=== PATIENT | male | born 1940 | race Caucasian/White ===

== ENCOUNTER 2020-10-14 20:09 | Inpatient (IN) | payer MEDICARE, SELFPAY ==
--- NOTE | ~2020-10-14 | CT_ITS ---
EXAMINATION: CT abdomen pelvis wo con DATE: 10/14/2020 23:31 INDICATION: Hypotension, lactic acidosis and leukocytosis. TECHNIQUE: Computed tomography (CT) of the abdomen and pelvis was performed without intravenous contr ast. Automated exposure control and iterative reconstruction technique were employed. The dose-length product was 560.22 mGy-cm. COMPARISON: 08/03/2016 FINDINGS: Mild dependent atelectasis in the bilateral lower lobes. Heart size is normal. Atherosclerotic page ry artery calcification. Mitral annular calcific lesion. No pericardial or pleural effusion. Again se en are 5 small low-attenuation hepatic lesions the largest measuring 1.4 cm most likely hepatic cysts or hemangiomas. Gallbladder, spleen, pancreas and bilateral adrenal glands are normal. Moderate bila teral perinephric stranding. Mild bilateral hydroureter without hydronephrosis or evident obstructing ureteral stones. Bladder is normal. Prostatomegaly. There is mild colonic diverticulosis with a sigm oid predominance. There is no adjacent inflammatory change to suggest diverticulitis. Mild diffuse co lonic wall thickening consistent with colitis. 5 cm ball of stool at the rectum. Small bowel and appe ndix are normal. No free intraperitoneal gas or fluid. No pathologically enlarged abdominal or pelvic lymphadenopathy. Mild to moderate thoracolumbar spondylosis with bridging osteophytes at multiple levels consistent w ith diffuse idiopathic skeletal hyperostosis (DISH). L5 spondylolysis with bilateral pars intra-bailee cular is defects and 10 mm anterolisthesis on S1. IMPRESSION: 1. Diffuse mild wall thickening throughout the colon consistent with colitis which could be infectiou s, inflammatory or ischemic in etiology. 2. Moderate bilateral perinephric stranding and mild bilateral hydroureter without evident obstructin g stones or masses but which could be related to outlet obstruction from the enlarged prostate. Corre late with urinalysis. Reviewed, dictated and finalized at location A. IMPRESSION: 1. Diffuse mild wall thickening throughout the colon consistent with colitis wh ich could be infectious, inflammatory or ischemic in etiology. 2. Moderate bilateral perinephric stranding and mild bilateral hydroureter with out evident obstructing stones or masses but which could be related to outlet o bstruction from the enlarged prostate. Correlate with urinalysis.
--- NOTE | ~2020-10-14 | XR_ITS ---
EXAMINATION: XR chest 1V portable DATE: 10/14/2020 21:01 INDICATION: Weakness. Gait difficulty. TECHNIQUE: frontal view of the chest was obtained. COMPARISON: None FINDINGS: Lungs are clear with no focal airspace opacities, pulmonary edema, pleural effusion or pneumothorax. The cardiomediastinal silhouette is within normal limits accounting for slight rightward rotation of the patient. Calcified right hilar and mediastinal lymph nodes consistent with old granulomatous dise ase. IMPRESSION: 1. No acute cardiopulmonary disease. Reviewed, dictated and finalized at location A.
--- NOTE | ~2020-10-14 | US_ITS ---
EXAMINATION: US renal BI DATE: 10/16/2020 15:29 INDICATION: Bilateral hydronephrosis TECHNIQUE: Multiple ultrasound grayscale images of the kidneys were obtained. COMPARISON: CT dated 10/14/2020 FINDINGS: The right kidney measures 9.6 x 4.8 x 6.0 cm. The left kidney measures 11.0 x 5.5 x 5.1 cm. The kidne ys demonstrate normal echogenicity. There is no hydronephrosis in either kidney. No stones identifie d. The bladder is decompressed around a Escalante catheter which limits evaluation.. IMPRESSION: 1. Normal kidneys without hydronephrosis. Reviewed, dictated and finalized at location A.
--- NOTE | ~2020-10-14 | CT_ITS ---
EXAMINATION: CT brain wo con DATE: 10/14/2020 21:09 INDICATION: Generalized weakness. Gait difficulty. TECHNIQUE: Computed tomography (CT) of the head was performed without intravenous contrast. Sagittal and coronal reconstructions were performed. The mA was adjusted according to patient size. Iterative reconstruction technique was employed. The dose-length product was 605.33 mGy-cm. COMPARISON: Brain MR dated 02/23/2012 FINDINGS: No acute intracranial hemorrhage, acute infarction or abnormal extra axial fluid collection. There is mild scattered white matter hypoattenuation consistent with chronic small vessel ischemic disease. S ymmetric prominence of the sulci consistent with mild age-appropriate diffuse cerebral volume loss. Ventricles are normal and symmetric. No mass/mass effect. The orbits, paranasal sinuses and mastoid a ir cells are normal. IMPRESSION: 1. No acute intracranial process. 2. Age-related changes including mild diffuse volume loss and mild scattered white matter hypoattenua tion consistent with chronic small vessel ischemic disease. Reviewed, dictated and finalized at location A. IMPRESSION: 1. No acute intracranial process. 2. Age-related changes including mild diffuse volume loss and mild scattered wh ite matter hypoattenuation consistent with chronic small vessel ischemic diseas e.
[2020-10-14 20:09] VITALS: BP 89/57; PULSE 72; RESP 21; TEMP 36.4; O2SAT 97
--- NOTE | 2020-10-14 20:50 | ECG_ITS ---
Measurements Intervals [place] Rate: 70 P: 60 NV: 187 QRS: 3 QRSD: 90 T: 34 QT: 382 QTc: 413 Interpretive Statements SINUS RHYTHM EARLY PRECORDIAL R/S TRANSITION BORDERLINE ECG Electronically Signed On 10-15-2020 5:44:24 CDT by Thomas Day D.O.
[2020-10-14] MEDS: SODIUM CHLORIDE 0.9% IV 1,000 ML 999 ML IV CONT ×3 (20:58→22:34)
--- NOTE | 2020-10-14 21:10 | ED.WEAKNESS ---
HPI - Weakness General Chief complaint: Weakness Stated complaint: weakness Time Seen by Provider: 10/14/20 20:40 Source: patient, RN notes reviewed and old records reviewed Mode of arrival: EMS Limitations: no limitations History of Present Illness HPI Narrative: This is an 80 year old male who presents for evaluation of generalized weakness. Patient reports he developed weakness this afternoon. He reports he was unable to get up due to his weakness. EMS reports patient was seen earlier for a lift assist. Patient states he accidentally fell backwards onto his at that time but he did not hit his head. He reports he has not eaten anything today and he is weak. He denies any other complaints. He denies headache, chest pain, shortness of breath, cough, nausea, vomiting, abdominal pain or fever. He denies similar history in the past. Related Data Home Medications Medication Instructions Recorded Confirmed aspirin 81 mg tablet,delayed 81 mg PO DAILY 04/19/19 10/08/19 release ropinirole 1 mg tablet 1 mg PO .COMPLEX 04/19/19 10/08/19 Allergies Allergy/AdvReac Type Severity Reaction Status Date / Time No Known Allergies Allergy Verified 10/14/20 20:24 Review of Systems Review of Systems: All systems reviewed & are unremarkable except as noted in HPI and below Constitutional: Constitutional: Denies chills, Denies fever(s) and Reports weakness ENT: Denies sore throat Cardiovascular: Cardiovascular: Denies chest pain Respiratory: Respiratory: Denies cough and Denies dyspnea Gastrointestinal: Gastrointestinal: Denies abdominal pain, Denies diarrhea, Denies nausea and Denies vomiting Genitourinary: Genitourinary: Denies hematuria and Denies dysuria Musculoskeletal: Musculoskeletal: Denies back pain Neurologic: Denies headache(s), Denies focal weakness and Denies numbness [facility] Past Medical History Medical History (Updated 10/15/20 @ 07:46 by Magi Dominguez MD) Hyperlipidemia Hypertension Parkinsons disease Family History Family History Father Diabetes mellitus Family history of elevated blood lipids Family history of cardiovascular disease Mother Family history of malignant neoplasm of breast in first degree relative Other Hypertension Social History Social History Alcohol intake: current Exam Const: General: no acute distress Orientation/consciousness: patient oriented x3 Other: lethargic HENMT: Head: normocephalic and atraumatic Face and sinus: dry mucous membranes Mouth: Yes lip normal Eyes: EOM: EOMs intact bilaterally Resp: Effort & Inspection: normal respiratory effort and no retractions Auscultation: clear to auscultation bilaterally Cardio: Rate: regular rate Rhythm: regular rhythm Heart sounds: no murmurs GI: GI Palp: Yes Soft to palpation, No Tenderness to palpation present (GI) and No Guarding due to palpation present (GI) Auscultation: normal bowel sounds Skin: General skin exam: normal color Rashes: no rashes Neuro: General: patient oriented x3 and moves all extremities Psych: Mental Status: mental status grossly normal Affect: normal affect Course Reevaluation(s) Reevaluation #1: I Discussed case with DR. hitchcock . She reviewed labs and CT. She agrees with managment. Patient is no longer hypotensive after hydration so she agrees patient can be admitted to IMU at this time with maintenence fluid. PAtient found to have acute kidney injury and possible colitis. He does not have diarrhea. Date: 10/15/20 Time: 02:08 Vital Signs Vital signs: Vital Signs Temperature 97.5 F L 10/14/20 20:09 Pulse Rate 72 10/14/20 20:09 Respiratory Rate 21 H 10/14/20 20:09 Blood Pressure 89/57 L 10/14/20 20:09 Pulse Oximetry 97 10/14/20 20:09 Temperature 97.5 F L 10/14/20 20:09 Pulse Rate 74 10/15/20 07:06 Respirator
[2020-10-14 21:35] LABS: Hematocrit 35.7 % (42.0-52.0); Hemoglobin 11.6 g/dL (14.0-18.0); Mean Corpuscular HGB Conc 32.5 g/dl (32-36); Mean Corpuscular Hemoglobin 31.4 pg (26-34); Mean Corpuscular Volume 96.5 fl (80-100); Mean Platelet Volume 10.6 fl (7.4-10.4); Platelet Count Result 164 k/mm3 (150-375); Red Cell Distribution Width 13.9 % (11.5-14.5); White Blood Count 19.5 K/mm3 (4.5-10.0)
[2020-10-14 21:43] VITALS: BP 79/57; PULSE 69; RESP 19; O2SAT 97
[2020-10-14 21:44] LABS: Partial Thromboplastin Time 29.2 SECONDS (22.3-36.8)
[2020-10-14 21:46] VITALS: BP 102/59; PULSE 72; RESP 26; O2SAT 99
[2020-10-14 21:49] LABS: Lactic Acid Reflex 2.7 mmol/L (0.7-2.1)
[2020-10-14 21:50] LABS: Alanine Aminotransferase 17 U/L (4-50); Albumin Level 3.8 g/dL (3.5-5.1); Alkaline Phosphatase 41 U/L (38-126); Anion Gap 8 mmol/L (8-16); Aspartate Amino Transferase 43 U/L (17-59); Bilirubin,Total 0.5 mg/dL (0.2-1.3); Blood Urea Nitrogen 30 mg/dL (9-20); Calcium 8.8 mg/dL (8.4-10.2); Carbon Dioxide 23 mmol/L (22-30); Chloride 101 mmol/L (98-107); Estimated CRCL calculation 27 ml/min; Estimated Glomerular Filt Rate 31; Glucose 92 mg/dL (65-110); Lipase 42 U/L (23-300); Magnesium 1.5 mg/dL (1.6-2.3); Sodium 132 mmol/L (137-145)
[2020-10-14 21:51] LABS: Band Neutrophils Percent 19 % (0-6); Lymphocytes Absolute Manual 0.39 K/mm3 (1.1-4.5); Monocytes Absolute Manual 0.97 K/mm3 (0.1-0.90); Monocytes Percent Manual 5 % (3-9); Neutrophils Absolute Manual 18.13 K/mm3 (1.3-6.7); Neutrophils Percent Manual 74 % (46-73); Total Cells Counted 100
[2020-10-14 21:52] LABS: Platelet Estimate Adequate (Adequate)
--- NOTE | 2020-10-14 21:56 | PC.NURSE ---
asked pt for urine sample. pt states he will try. pt has urinal at this time trying to urinate.
[2020-10-14 22:01] LABS: Troponin I 0.012 ng/mL (0.000-0.034)
[2020-10-14 22:35] VITALS: BP 87/59; PULSE 71; RESP 26; O2SAT 97
[2020-10-14 23:16] VITALS: BP 90/59; PULSE 71; RESP 24; O2SAT 100
[2020-10-14] MEDS: SODIUM CHLORIDE 0.9% IV 500 ML 999 ML IV CONT (23:48)
[2020-10-15] VITALS (14 sets, daily range): BP systolic 90–118; BP diastolic 55–87; PULSE 59–78; RESP 18–24; TEMP 36.5; O2SAT 97–99; BMI 30.2
[2020-10-15 00:07] LABS: Add Urine Microscopic? YES; Appearance Urine Clear (Clear); Bacteria Urine Trace /hpf; Bilirubin Urine Negative (Negative); Blood Urine 1+ (Negative); Color Urine Yellow (Yellow); Glucose Urine UA Negative (Negative); Ketones Urine Trace mg/dL (Negative); Leukocyte Esterase Ur 2+ LEU/UL (Negative); Mucus Urine Rare /lpf; Nitrate Urine Negative (Negative); Protein Urine 1+ mg/dL (Negative); Squamous Epithelial Cell Urine Rare /hpf (Few); Urobilinogen Urine Negative mg/dL (<2.0); WBC Urine 16-20 /hpf
[2020-10-15 00:33] LABS: Reflex Lactic Acid Yes or No Add Lactic
[2020-10-15 01:26] LABS: Lactic Acid 2.3 mmol/L (0.7-2.1)
[2020-10-15] MEDS: SODIUM CHLORIDE 0.9% IV 500 ML 999 ML IV CONT (01:41)
[2020-10-15] MEDS: SODIUM CHLORIDE 0.9% IV 1,000 ML 125 ML IV CONT ×3 (05:24→20:09)
--- NOTE | 2020-10-15 07:48 | PM.IMHP ---
H&P: HPI History of Present Illness Date/Time: 10/15/20 07:48 80-year-old male with Parkinson's, hypertension, GERD, BPH, history of elevated PSA, hyperlipidemia, presents to the emergency room with chief complaint of weakness for 1 month that has acutely worsened. Associated symptoms or frequent urination burning with urination for ?length of time unknown review of systems positive for bilateral feet numbness for years and weakness with activity Chief Complaint: weakness Review of Systems Review of Systems: All systems reviewed & are unremarkable except as noted in HPI and below PMFSH Past Medical History Medical History (Updated 10/18/20 @ 14:11 by Aria Berry MD) Hyperlipidemia Hypertension Parkinsons disease Family History Family History Father Family history of cardiovascular disease Family history of elevated blood lipids Diabetes mellitus Suicide Mother Family history of malignant neoplasm of breast in first degree relative Other Hypertension Social History Social History Smoking packs per day: 3 Smoking cigarettes per day: 60.0 Years smoked: 11 Smoking pack-years: 33.00 Smoking status: Former smoker Tobacco type: cigarettes Smoking end date: 10/15/64 Alcohol intake: current Drinks per week: 4 Gender identity (if verbalized by the patient): Male Spiritual care concerns: No Meds Home Medications and Allergies Home Medications Medication Instructions Recorded Confirmed Type aspirin 81 mg tablet,delayed 81 mg PO DAILY 04/19/19 10/15/20 History release ropinirole 1 mg tablet 1.5 mg PO QID 04/19/19 10/15/20 History carbidopa 25 mg-levodopa 100 mg 3 tablet PO QID #1080 tablet 07/16/20 10/15/20 Rx tablet metoprolol succinate 25 mg PO DAILY 10/15/20 10/15/20 History omeprazole 20 mg PO DAILY 10/15/20 10/15/20 History rosuvastatin 10 mg PO DAILY 10/15/20 10/15/20 History tamsulosin 0.4 mg PO DAILY 10/15/20 10/15/20 History finasteride [Proscar] 5 mg PO QAM #30 tablet 10/16/20 Rx tamsulosin 0.4 mg PO DAILY #30 cap 10/16/20 Rx ciprofloxacin HCl 250 mg PO Q12H #14 tablet 10/18/20 Rx Allergies Allergy/AdvReac Type Severity Reaction Status Date / Time No Known Allergies Allergy Verified 10/14/20 20:24 Vital Signs Vital Signs - 24 hr 10/14/20 20:09 10/14/20 21:43 10/14/20 21:46 Temperature 97.5 F L Pulse Rate 72 69 72 Respiratory Rate 21 H 19 26 H Blood Pressure 89/57 L 79/57 L 102/59 L Pulse Oximetry 97 97 99 10/14/20 22:35 10/14/20 23:16 10/15/20 00:19 Temperature Pulse Rate 71 71 68 Respiratory Rate 26 H 24 H 21 H Blood Pressure 87/59 L 90/59 L 90/64 L Pulse Oximetry 97 100 97 10/15/20 01:34 10/15/20 03:41 10/15/20 05:08 Temperature Pulse Rate 69 71 67 Respiratory Rate 21 H 23 H 21 H Blood Pressure 96/71 L 109/70 97/55 L Pulse Oximetry 98 98 97 10/15/20 07:06 Temperature Pulse Rate 74 Respiratory Rate 24 H Blood Pressure 104/67 Pulse Oximetry 98 Exam Narrative: GEN: NAD, AAOx3, cooperative HEENT: NCAT, MMM, EOMI Neck: no JVD Heart: S1S2 RRR Abd: soft, NT, ND, bowel sounds normoactive Ext: moves all, no cyanosis, no clubbing, no edema Neuro: CN intact, no focal motor deficits Psych: mood normal affect flattened Const: General: comfortable and no acute distress HENMT: Mouth: Yes moist mucous membranes and Yes Abnormal oral and palatal mucosa present Eyes: General: appearance normal, both eyes and all related structures EOM: EOMs intact bilaterally Neck: Neck: no JVD Resp: Effort & Inspection: normal respiratory effort Auscultation: clear to auscultation bilaterally Cardio: Rate: regular rate Rhythm: regular rhythm and regular rhythm GI: GI Palp: Yes Soft to palpation, No Tenderness to palpation present (GI) and No Guarding due to palpation present (GI) Skin: General skin exa
--- NOTE | 2020-10-15 09:39 | ADMGEN ---
This patient, Abdulaziz Goins, was admitted to Intensive Care Unit-1. Patient/family oriented to hospital policies and general routines including ID bracelet, bed and alarms, visiting hours, pain management, procedures, bathroom and other care routines, personal items, smoking policy, room service/diet, and visiting hours. Information on how to activate the Rapid Response Team has been discussed. Patient/Family are encouraged to report perceived risks to care and to ask questions if they do not understand what they are told or what they should do.
--- NOTE | 2020-10-15 12:37 | WPDURCON ---
Assessment and Plan Assessment and plan (1) Acute kidney injury superimposed on CKD: Code(s): N17.9 - Acute kidney failure, unspecified; N18.9 - Chronic kidney disease, unspecified Status: Acute Assessment and Plan: Will likely improve s/p catheter placement, will continue to monitor. (2) Bilateral hydronephrosis: Code(s): N13.30 - Unspecified hydronephrosis Status: Acute Assessment and Plan: Secondary to retention, place dotson catheter and restart Finasteride. Continue Tamsulosin. (3) Sepsis: Code(s): A41.9 - Sepsis, unspecified organism Status: Acute Assessment and Plan: Continue IV antibiotics, tailor to culture results. Urology Consult Note HPI Date Seen: 10/15/20 Requesting Physician: Yanet Pike DO Primary Care Provider: Jayleen Ledezma DO Consult Narrative Narrative: Abdulaziz Goins is a 80 year old male who presented to the ER today after acute onset of weakness and a fall at home. He is very lethargic today and not able to provide a medical history. He does state he has had gross hematuria recently and does urinate to often daily and at night, as well as straining and hesitancy for the past month when urinating. He was found on CT today to have: moderate bilateral perinephric stranding and mild bilateral hydroureter without evident obstructing stones or masses but which could be related to outlet obstruction from the enlarged prostate. UA is suspicious of UTI, urine culture and blood cultures are pending. His WBC is 19.5, creatinine 2.10 and PSA was 19.0 today as well. He is a patient of Dr. Beltran and was seen once on 07/29/2020 in which he was started on Finasteride. His home medication list shows only Tamsulosin at this time, it is unclear as to why he is no longer on Finasteride. The PSA at the time of his visit was 20.2, he was instructed to follow up in 3 months, but has no appt. scheduled at this time. Review of Systems Cardiovascular: Cardiovascular: Denies chest pain Respiratory: Respiratory: Reports no additional respiratory complaints Gastrointestinal: Gastrointestinal: Denies abdominal pain, Denies nausea and Denies vomiting Genitourinary: Genitourinary: Reports hematuria, Denies dysuria, Denies flank pain, Reports urinary frequency, Reports urinary hesitancy and Reports urinary urgency [facility] Past Medical History Medical History Hyperlipidemia Hypertension Parkinsons disease Family History Family History Father Family history of cardiovascular disease Family history of elevated blood lipids Diabetes mellitus Suicide Mother Family history of malignant neoplasm of breast in first degree relative Other Hypertension Social History Social History Smoking packs per day: 3 Smoking cigarettes per day: 60.0 Years smoked: 11 Smoking pack-years: 33.00 Smoking status: Former smoker Tobacco type: cigarettes Smoking end date: 10/15/64 Alcohol intake: current Drinks per week: 4 Gender identity (if verbalized by the patient): Male Spiritual care concerns: No Meds Home Medications and Allergies Home Medications Medication Instructions Recorded Confirmed Type aspirin 81 mg tablet,delayed 81 mg PO DAILY 04/19/19 10/08/19 History release ropinirole 1 mg tablet 1.5 mg PO QID 04/19/19 10/08/19 History carbidopa 25 mg-levodopa 100 mg 3 tablet PO QID #1080 tablet 07/16/20 10/15/20 Rx tablet metoprolol succinate 25 mg See Rx Instructions .ROUTE 07/28/20 Rx tablet,extended release 24 hr .COMPLEX #90 tablet omeprazole 20 mg PO DAILY 10/15/20 10/15/20 History rosuvastatin 10 mg PO DAILY 10/15/20 10/15/20 History tamsulosin 0.4 mg PO DAILY 10/15/20 10/15/20 History Allergies Allergy/AdvReac Type Severity Reaction Status Date / Time
--- NOTE | 2020-10-15 18:07 | PC.NURSE ---
This patient, Abdulaziz Goins, was received from [ICU-1] on 10/15/20 at 1750. Patient/family oriented to unit policies and routines REPORT RECEIVED FROM MAIN CONCEPCION.
[2020-10-15] MEDS: CARBIDOPA/LEVODOPA 25/100 MG TABLET 3 TABLET PO ×2 (18:57→20:10)
[2020-10-15] MEDS: rOPINIRole HCL 1 MG TABLET PO ×2 (18:57→20:11)
[2020-10-15] MEDS: rOPINIRole HCL 0.5 MG TABLET PO ×2 (18:58→20:11)
[2020-10-16] VITALS (13 sets, daily range): BP systolic 108–151; BP diastolic 69–79; PULSE 52–86; RESP 18–24; TEMP 36.1–36.9; O2SAT 93–97
[2020-10-16] MEDS: SODIUM CHLORIDE 0.9% IV 1,000 ML 125 ML IV CONT ×2 (05:07→14:40)
[2020-10-16 05:12] LABS: Hematocrit 33.1 % (42.0-52.0); Hemoglobin 10.5 g/dL (14.0-18.0); Immature Platelet Fraction Pct 6.6 % (0.9-11.2); Mean Corpuscular HGB Conc 31.7 g/dl (32-36); Mean Corpuscular Volume 97.6 fl (80-100); Platelet Count Result 140 k/mm3 (150-375); Red Blood Count 3.39 M/mm3 (4.6-6.20); Red Cell Distribution Width 14.6 % (11.5-14.5); White Blood Count 20.1 K/mm3 (4.5-10.0)
[2020-10-16 05:26] LABS: Alanine Aminotransferase 7 U/L (4-50); Albumin Level 2.8 g/dL (3.5-5.1); Alkaline Phosphatase 50 U/L (38-126); Anion Gap 6 mmol/L (8-16); Aspartate Amino Transferase 37 U/L (17-59); Bilirubin,Total 0.5 mg/dL (0.2-1.3); Blood Urea Nitrogen 29 mg/dL (9-20); Calcium 8.2 mg/dL (8.4-10.2); Carbon Dioxide 21 mmol/L (22-30); Chloride 111 mmol/L (98-107); Estimated CRCL calculation 43 ml/min; Estimated Glomerular Filt Rate 53; Glucose 79 mg/dL (65-110); Potassium 3.8 mmol/L (3.4-5.0); Sodium 138 mmol/L (137-145)
[2020-10-16 05:48] LABS: Band Neutrophils Percent 14 % (0-6); Monocytes Percent Manual 9 % (3-9); Neutrophils Absolute Manual 17.08 K/mm3 (1.3-6.7); Neutrophils Percent Manual 71 % (46-73); Platelet Estimate Adequate (Adequate); Total Cells Counted 100
--- NOTE | 2020-10-16 09:02 | WPDUROPN2 ---
Progress Note: A&P Assessment and Plan (1) Bilateral hydronephrosis: Code(s): N13.30 - Unspecified hydronephrosis Status: Acute Assessment and Plan: Will get a RHETT to note resolution. 200cc of PVR. Will plan to do a voiding trial prior to discharge. (2) Acute kidney injury: Code(s): N17.9 - Acute kidney failure, unspecified Status: Acute Assessment and Plan: Creatinine returned to baseline, 1.30. (3) Urinary frequency: Code(s): R35.0 - Frequency of micturition Status: Acute (4) Screening for prostate cancer: Code(s): Z12.5 - Encounter for screening for malignant neoplasm of prostate Status: Acute Assessment and Plan: Chronically elevated, will plan to follow up with Dr. Salcedo as an outpatient. (5) Elevated PSA: Code(s): R97.20 - Elevated prostate specific antigen [PSA] Status: Acute Subjective Subjective Date/Time Seen: 10/16/20 09:02 Patient's urine is draining to gravity, laury in color. He seems to be doing much better today, he is sitting up in bed and eating breakfast. He was restarted on Finasteride and continues Tamsulosin. Urine cultures are pending, and he continues to recieve antibiotics for his suspected urosepsis secondary to outlet obstruction. Review of Systems Cardiovascular: Cardiovascular: Denies chest pain Respiratory: Respiratory: Reports no additional respiratory complaints Gastrointestinal: Gastrointestinal: Denies abdominal pain, Denies nausea and Denies vomiting Genitourinary: Genitourinary: Denies hematuria and Denies flank pain Exam Resp: Effort & Inspection: tachypneic Cardio: Rate: bradycardic GI: GI Palp: Yes Soft to palpation and No Tenderness to palpation present (GI) : General: Yes no CVA tenderness Urinary Catheter: Urinary Catheter: patent and draining and urine clear Extrem: General: no edema Objective Data Vital Signs Vital Signs: Vital Signs - 24 hr 10/15/20 09:15 10/15/20 10:00 10/15/20 12:00 Temperature Pulse Rate 68 69 68 Respiratory Rate 19 18 Blood Pressure 114/87 Pulse Oximetry 99 98 10/15/20 14:00 10/15/20 16:00 10/15/20 18:00 Temperature Pulse Rate 59 L 72 76 Respiratory Rate 24 H Blood Pressure 104/59 L Pulse Oximetry 98 10/15/20 20:00 10/15/20 21:46 10/16/20 00:00 Temperature 97.7 F 98.4 F Pulse Rate 73 76 56 L Respiratory Rate 20 20 Blood Pressure 118/63 108/69 Pulse Oximetry 97 93 10/16/20 01:47 10/16/20 04:00 10/16/20 05:46 Temperature 98.2 F Pulse Rate 58 L 63 86 Respiratory Rate 18 Blood Pressure 128/70 Pulse Oximetry 95 10/16/20 08:25 Temperature 97.6 F Pulse Rate 59 L Respiratory Rate 24 H Blood Pressure 151/79 H Pulse Oximetry 95 Intake/Output Intake/Output: Intake & Output 10/13/20 10/14/20 10/15/20 10/16/20 23:59 23:59 23:59 23:59 Intake Total 3000 3840 1150 Output Total 350 400 800 Balance 2650 3440 350 Meds/Results Medications: Active Medications Generic Name Dose Route Start Last Admin Trade Name Freq PRN Reason Stop Dose Admin Carbidopa/Levodopa 3 tablet 10/15/20 17:00 10/15/20 20:10 Carbidopa/Levodopa 25/100 Mg Tablet PO 3 tablet QID MARIANA Administration Finasteride 5 mg 10/16/20 09:00 Finasteride 5 Mg Tablet PO QAM MARIANA Piperacillin Sod/Tazobactam Sod 2.25 gm in 50 mls @ 100 mls/hr 10/15/20 06:00 10/16/20 05:06 Zosyn 2.25 Gm/D5w 50 Ml IVPB 100 mls/hr Q6HR MARIANA Administration Sodium Chloride 1,000 mls @ 125 mls/hr 10/15/20 02:15 10/16/20 05:07 Normal Saline Iv IV CONT 125 mls/hr .Q8H MARIANA Administration Metoprolol Succinate 25 mg 10/16/20 09:00 Metoprolol Succinate Ext Rel 25 Mg Tabcr PO DAILY MARIANA Ondansetron HCl 4 mg 10/15/20 02:11 Ondansetron Inj 4 Mg/2 Ml Vial IV PUSH Q4H PRN Nausea Pantoprazole Sodium 40 mg 10/16/20 09:00 Pantoprazole 40 Mg Tablet PO QAM MARIANA Ropinirole H
[2020-10-16] MEDS: CARBIDOPA/LEVODOPA 25/100 MG TABLET 3 TABLET PO ×4 (09:12→22:16)
[2020-10-16] MEDS: FINASTERIDE 5 MG TABLET PO (09:12)
[2020-10-16] MEDS: TAMSULOSIN HCL 0.4 MG CAPSULE PO (09:13)
[2020-10-16] MEDS: rOPINIRole HCL 0.5 MG TABLET PO ×4 (09:13→22:16)
[2020-10-16] MEDS: rOPINIRole HCL 1 MG TABLET PO ×4 (09:13→22:16)
[2020-10-16] MEDS: PANTOPRAZOLE 40 MG TABLET PO (09:13)
[2020-10-16] MEDS: METOPROLOL SUCCINATE EXT REL 25 MG TABCR PO (09:13)
[2020-10-16] MEDS: ROSUVASTATIN 10 MG TABLET PO (09:13)
--- NOTE | 2020-10-16 19:21 | PM.IMPN ---
Progress Note: A&P Assessment and Plan (1) Acute kidney injury superimposed on CKD: Code(s): N17.9 - Acute kidney failure, unspecified; N18.9 - Chronic kidney disease, unspecified Status: Acute (2) Bilateral hydronephrosis: Code(s): N13.30 - Unspecified hydronephrosis Status: Acute (3) Sepsis: Code(s): A41.9 - Sepsis, unspecified organism Status: Acute (4) Dehydration: Code(s): E86.0 - Dehydration Status: Acute (5) Elevated PSA: Code(s): R97.20 - Elevated prostate specific antigen [PSA] Status: Acute (6) UTI (urinary tract infection): Code(s): N39.0 - Urinary tract infection, site not specified Status: Acute (7) Hyperlipidemia: Code(s): E78.5 - Hyperlipidemia, unspecified Status: Inactive (8) Hypertension: Code(s): I10 - Essential (primary) hypertension Status: Inactive (9) Parkinsons disease: Code(s): G20 - Parkinson's disease Status: Inactive Additional Plan 10/15/20 Patient admitted to step-down unit for urosepsis. Urology consulted and Escalante catheter placed. Anticipate rapid improvement of renal function. Patient started on Zosyn in the ER will continue for now pending further workup. Panculture pending Home medications for chronic diseases will be continued. VTEP heparin and SCDs 10/16/20 Renal function is improving as anticipated patient has chronic CKD 3. Patient remains with elevated. Vital signs are stable on home medications. Zosyn changed to Rocephin as greater than 100,000 colony-forming units of g negative bacilli have been reported on urine Gram stain. Anticipate transfer to [facility] in the next 24 hours. Subjective Date/time seen: 10/16/20 19:21 Patient states that he is feeling better sitting up watching TV has no complaints at time of my interview Exam Narrative: GEN: NAD, AAOx3, cooperative HEENT: NCAT, MMM, EOMI Neck: no JVD Heart: S1S2 RRR Lungs: CTA B/l Abd: soft, NT, ND, bowel sounds normoactive Ext: moves all, no cyanosis, no clubbing, no edema Neuro: Cranial nerves intact alert and oriented x3 moves all extremities equally Psych: flattened affect appropriate mood Objective Data Vital Signs Vital Signs: Vital Signs - 24 hr 10/15/20 20:00 10/15/20 21:46 10/16/20 00:00 Temperature 97.7 F 98.4 F Pulse Rate 73 76 56 L Respiratory Rate 20 20 Blood Pressure 118/63 108/69 Pulse Oximetry 97 93 10/16/20 01:47 10/16/20 04:00 10/16/20 05:46 Temperature 98.2 F Pulse Rate 58 L 63 86 Respiratory Rate 18 Blood Pressure 128/70 Pulse Oximetry 95 10/16/20 08:00 10/16/20 08:25 10/16/20 09:13 Temperature 97.6 F Pulse Rate 62 59 L 65 Respiratory Rate 24 H Blood Pressure 151/79 H Pulse Oximetry 95 10/16/20 10:00 10/16/20 11:57 10/16/20 12:00 Temperature 97.1 F L Pulse Rate 57 L 58 L 66 Respiratory Rate 18 Blood Pressure 135/73 Pulse Oximetry 97 10/16/20 14:00 10/16/20 17:38 Temperature 96.9 F L Pulse Rate 52 L 63 Respiratory Rate 18 Blood Pressure 128/73 Pulse Oximetry 97 Intake/Output Intake/Output: Intake & Output 10/13/20 10/14/20 10/15/20 10/16/20 23:59 23:59 23:59 23:59 Intake Total 3000 3840 3060 Output Total 502 337 0712 Balance 2650 3440 10 Meds/Results Medications: Active Medications Generic Name Dose Route Start Last Admin Trade Name Freq PRN Reason Stop Dose Admin Carbidopa/Levodopa 3 tablet 10/15/20 17:00 10/16/20 17:54 Carbidopa/Levodopa 25/100 Mg Tablet PO 3 tablet QID MARIANA Administration Finasteride 5 mg 10/16/20 09:00 10/16/20 09:12 Finasteride 5 Mg Tablet PO 5 mg QAM MARIANA Administration Piperacillin Sod/Tazobactam Sod 2.25 gm in 50 mls @ 100 mls/hr 10/15/20 06:00 10/16/20 17:53 Zosyn 2.25 Gm/D5w 50 Ml IVPB 100 mls/hr Q6HR MARIANA Administration Sodium Chloride 1,000 mls @ 125 mls/hr 10/15/20 02:15 10/16/20 14:40 Normal Saline Iv IV CONT 1
[2020-10-16] MEDS: HEPARIN SODIUM 5,000 UNITS/ML VIAL 5000 UNITS SUB-Q (21:00)
[2020-10-17] VITALS: BP 139/74; PULSE 70; RESP 18; TEMP 36.6; O2SAT 97
[2020-10-17] MEDS: SODIUM CHLORIDE 0.9% IV 1,000 ML 125 ML IV CONT ×3 (00:11→16:16)
[2020-10-17] MEDS: HEPARIN SODIUM 5,000 UNITS/ML VIAL 5000 UNITS SUB-Q ×3 (05:33→20:27)
[2020-10-17 08:12] VITALS: PULSE 72
[2020-10-17] MEDS: FINASTERIDE 5 MG TABLET PO (08:12)
[2020-10-17] MEDS: CARBIDOPA/LEVODOPA 25/100 MG TABLET 3 TABLET PO ×4 (08:12→20:26)
[2020-10-17] MEDS: METOPROLOL SUCCINATE EXT REL 25 MG TABCR PO (08:12)
[2020-10-17] MEDS: PANTOPRAZOLE 40 MG TABLET PO (08:13)
[2020-10-17] MEDS: rOPINIRole HCL 0.5 MG TABLET PO ×4 (08:13→20:26)
[2020-10-17] MEDS: rOPINIRole HCL 1 MG TABLET PO ×4 (08:13→20:26)
[2020-10-17] MEDS: ROSUVASTATIN 10 MG TABLET PO (08:14)
[2020-10-17] MEDS: TAMSULOSIN HCL 0.4 MG CAPSULE PO (08:14)
[2020-10-17 08:16] VITALS: BP 125/71; PULSE 70; RESP 20; TEMP 36.4; O2SAT 96
[2020-10-17 11:54] LABS: Basophils Absolute Auto 0.1 K/mm3 (0.0-0.1); Basophils Percent Auto 0.4 % (0.2-1.2); Eosinophils Absolute Auto 0.2 K/mm3 (0-0.3); Eosinophils Percent Auto 1.4 % (0-4.4); Hematocrit 32.4 % (42.0-52.0); Hemoglobin 10.5 g/dL (14.0-18.0); Immature Granulocyte Absolute 0.18 K/mm3 (0.00-0.031); Immature Granulocyte Percent A 1.3 % (0-0.5); Lymphocytes Absolute Auto 1.02 K/mm3 (0.9-3.2); Lymphocytes Percent Auto 7.3 % (18.3-44.2); Mean Corpuscular HGB Conc 32.4 g/dl (32-36); Mean Corpuscular Volume 95.6 fl (80-100); Monocytes Absolute Auto 0.5 K/mm3 (0.1-0.6); Monocytes Percent Auto 3.8 % (2.6-8.5); Neutrophils Percent Auto 85.8 % (45.5-73.1); Platelet Count Result 150 k/mm3 (150-375); Red Blood Count 3.39 M/mm3 (4.6-6.20); Red Cell Distribution Width 14.1 % (11.5-14.5)
[2020-10-17 13:22] LABS: Anion Gap 7 mmol/L (8-16); Blood Urea Nitrogen 15 mg/dL (9-20); Calcium 8.1 mg/dL (8.4-10.2); Carbon Dioxide 20 mmol/L (22-30); Chloride 106 mmol/L (98-107); Estimated CRCL calculation 55 ml/min; Estimated Glomerular Filt Rate > 60; Glucose 140 mg/dL (65-110); Potassium 3.4 mmol/L (3.4-5.0); Sodium 133 mmol/L (137-145)
--- NOTE | 2020-10-17 13:50 | PM.IMPN ---
Progress Note: A&P Assessment and Plan (1) Acute kidney injury superimposed on CKD: Code(s): N17.9 - Acute kidney failure, unspecified; N18.9 - Chronic kidney disease, unspecified Status: Acute (2) Bilateral hydronephrosis: Code(s): N13.30 - Unspecified hydronephrosis Status: Acute (3) Sepsis: Code(s): A41.9 - Sepsis, unspecified organism Status: Acute (4) Dehydration: Code(s): E86.0 - Dehydration Status: Acute (5) Elevated PSA: Code(s): R97.20 - Elevated prostate specific antigen [PSA] Status: Acute (6) UTI (urinary tract infection): Code(s): N39.0 - Urinary tract infection, site not specified Status: Acute (7) Hyperlipidemia: Code(s): E78.5 - Hyperlipidemia, unspecified Status: Inactive (8) Hypertension: Code(s): I10 - Essential (primary) hypertension Status: Inactive (9) Parkinsons disease: Code(s): G20 - Parkinson's disease Status: Inactive Additional Plan 10/15/20 Patient admitted to step-down unit for urosepsis. Urology consulted and Escalante catheter placed. Anticipate rapid improvement of renal function. Patient started on Zosyn in the ER will continue for now pending further workup. Panculture pending Home medications for chronic diseases will be continued. VTEP heparin and SCDs 10/16/20 Renal function is improving as anticipated patient has chronic CKD 3. Patient remains with elevated. Vital signs are stable on home medications. Zosyn changed to Rocephin as greater than 100,000 colony-forming units of g negative bacilli have been reported on urine Gram stain. Anticipate transfer to [facility] in the next 24 hours. 10/17/20 pt doing ok WBCs down trending and renal function improved will dc tomorrow if remains in stable condition and afebrile w resolving leukocytosis tomorrow. Will need outpt f/u w urology for removal of Escalante catheter Subjective Date/time seen: 10/17/20 13:50 Patient doing okay would like to go home becomes tearful states that his has dementia and currently his son is taking care for. He like to get home as soon as possible. Patient reassured that his leukocytosis is downtrending and he will likely be able to be discharged home tomorrow on oral antibiotics. Patient is in agreement. Exam Narrative: GEN: NAD, AAOx3, cooperative HEENT: NCAT, MMM, EOMI Neck: no JVD Heart: S1S2 RRR Lungs: CTA B/l Abd: soft, NT, ND, bowel sounds normoactive Ext: moves all, no cyanosis, no clubbing, no edema Neuro: Cranial nerves intact alert and oriented x3 moves all extremities equally Psych: flattened affect appropriate mood Objective Data Vital Signs Vital Signs: Vital Signs - 24 hr 10/16/20 14:00 10/16/20 17:38 10/16/20 20:00 Temperature 96.9 F L Pulse Rate 52 L 63 72 Respiratory Rate 18 Blood Pressure 128/73 Pulse Oximetry 97 10/17/20 00:00 10/17/20 08:12 10/17/20 08:16 Temperature 98 F 97.5 F L Pulse Rate 70 72 70 Respiratory Rate 18 20 Blood Pressure 139/74 125/71 Pulse Oximetry 97 96 Intake/Output Intake/Output: Intake & Output 10/14/20 10/15/20 10/16/20 10/17/20 23:59 23:59 23:59 23:59 Intake Total 3000 3840 4160 1800 Output Total 240 229 7115 1600 Balance 2650 3440 1110 200 Meds/Results Medications: Active Medications Generic Name Dose Route Start Last Admin Trade Name Freq PRN Reason Stop Dose Admin Carbidopa/Levodopa 3 tablet 10/15/20 17:00 10/17/20 13:34 Carbidopa/Levodopa 25/100 Mg Tablet PO 3 tablet QID MARIANA Administration Finasteride 5 mg 10/16/20 09:00 10/17/20 08:12 Finasteride 5 Mg Tablet PO 5 mg QAM MARIANA Administration Heparin Sodium (Porcine) 5,000 units 10/16/20 22:00 10/17/20 13:35 Heparin Sodium 5,000 Units/Ml Vial SUB-Q 5,000 units Q8HR MARIANA Administration Sodium Chloride 1,000 mls @ 125 mls/hr 10/15/20 02:15 10/17/20 08:14 Normal Saline Iv IV CONT 125 mls/hr .Q8H MARIANA
[2020-10-17 16:00] VITALS: BP 159/95; PULSE 54; RESP 16; TEMP 36.7; O2SAT 98
--- NOTE | 2020-10-17 16:38 | PC.NURSE ---
pt transferred into room 302 via bed, oriented to new room and environment, reviewed plan of care, pt doing well, denies discomfort, assisted with meal order
[2020-10-17 20:00] VITALS: PULSE 56; RESP 18; O2SAT 97
[2020-10-17 22:00] VITALS: BP 128/79; PULSE 56; RESP 18; TEMP 36.2; O2SAT 97
[2020-10-18] MEDS: SODIUM CHLORIDE 0.9% IV 1,000 ML 125 ML IV CONT (00:38)
[2020-10-18] MEDS: HEPARIN SODIUM 5,000 UNITS/ML VIAL 5000 UNITS SUB-Q (05:28)
[2020-10-18 06:00] VITALS: BP 155/84; PULSE 56; RESP 18; TEMP 36.4; O2SAT 96
[2020-10-18 08:00] VITALS: PULSE 66; RESP 18; O2SAT 96
[2020-10-18 08:13] VITALS: PULSE 66
[2020-10-18] MEDS: TAMSULOSIN HCL 0.4 MG CAPSULE PO (08:13)
[2020-10-18] MEDS: rOPINIRole HCL 0.5 MG TABLET PO ×2 (08:13→13:32)
[2020-10-18] MEDS: CARBIDOPA/LEVODOPA 25/100 MG TABLET 3 TABLET PO ×2 (08:13→13:31)
[2020-10-18] MEDS: METOPROLOL SUCCINATE EXT REL 25 MG TABCR PO (08:13)
[2020-10-18] MEDS: FINASTERIDE 5 MG TABLET PO (08:15)
[2020-10-18] MEDS: rOPINIRole HCL 1 MG TABLET PO ×2 (08:15→13:32)
[2020-10-18] MEDS: ROSUVASTATIN 10 MG TABLET PO (08:15)
[2020-10-18] MEDS: PANTOPRAZOLE 40 MG TABLET PO (08:15)
[2020-10-18 08:54] LABS: Basophils Absolute Auto 0.1 K/mm3 (0.0-0.1); Basophils Percent Auto 0.8 % (0.2-1.2); Eosinophils Absolute Auto 0.3 K/mm3 (0-0.3); Eosinophils Percent Auto 3.5 % (0-4.4); Hematocrit 34.7 % (42.0-52.0); Hemoglobin 11.6 g/dL (14.0-18.0); Immature Granulocyte Absolute 0.12 K/mm3 (0.00-0.031); Immature Granulocyte Percent A 1.4 % (0-0.5); Lymphocytes Absolute Auto 1.18 K/mm3 (0.9-3.2); Lymphocytes Percent Auto 13.5 % (18.3-44.2); Mean Corpuscular HGB Conc 33.4 g/dl (32-36); Mean Corpuscular Hemoglobin 30.7 pg (26-34); Mean Corpuscular Volume 91.8 fl (80-100); Mean Platelet Volume 10.4 fl (7.4-10.4); Monocytes Absolute Auto 0.4 K/mm3 (0.1-0.6); Monocytes Percent Auto 4.9 % (2.6-8.5); Neutrophils Absolute Auto 6.7 K/mm3 (1.3-6.7); Neutrophils Percent Auto 75.9 % (45.5-73.1); Platelet Count Result 174 k/mm3 (150-375); Red Blood Count 3.78 M/mm3 (4.6-6.20); Red Cell Distribution Width 13.7 % (11.5-14.5); White Blood Count 8.8 K/mm3 (4.5-10.0)
[2020-10-18 09:22] LABS: Anion Gap 7 mmol/L (8-16); Blood Urea Nitrogen 9 mg/dL (9-20); Calcium 8.7 mg/dL (8.4-10.2); Carbon Dioxide 23 mmol/L (22-30); Chloride 104 mmol/L (98-107); Estimated CRCL calculation 61 ml/min; Estimated Glomerular Filt Rate > 60; Glucose 85 mg/dL (65-110); Magnesium 1.6 mg/dL (1.6-2.3); Potassium 3.5 mmol/L (3.4-5.0); Sodium 134 mmol/L (137-145)
--- NOTE | 2020-10-18 12:31 | PM.DS ---
DS: Admitting Diagnosis Admitting Diagnosis (1) Sepsis: Code(s): A41.9 - Sepsis, unspecified organism Status: Acute (2) Dehydration: Code(s): E86.0 - Dehydration Status: Acute (3) Bilateral hydronephrosis: Code(s): N13.30 - Unspecified hydronephrosis Status: Acute (4) Elevated PSA: Code(s): R97.20 - Elevated prostate specific antigen [PSA] Status: Acute (5) Acute kidney injury superimposed on CKD: Code(s): N17.9 - Acute kidney failure, unspecified; N18.9 - Chronic kidney disease, unspecified Status: Acute (6) Acute urinary obstruction: Code(s): N13.9 - Obstructive and reflux uropathy, unspecified Status: Acute DS: Discharge Diagnosis Discharge Diagnosis (1) UTI (urinary tract infection): Code(s): N39.0 - Urinary tract infection, site not specified Status: Acute (2) Acute kidney injury superimposed on CKD: Code(s): N17.9 - Acute kidney failure, unspecified; N18.9 - Chronic kidney disease, unspecified Status: Acute (3) Bilateral hydronephrosis: Code(s): N13.30 - Unspecified hydronephrosis Status: Acute (4) Sepsis: Code(s): A41.9 - Sepsis, unspecified organism Status: Acute (5) Dehydration: Code(s): E86.0 - Dehydration Status: Acute (6) Acute kidney injury: Code(s): N17.9 - Acute kidney failure, unspecified Status: Acute (7) Elevated PSA: Code(s): R97.20 - Elevated prostate specific antigen [PSA] Status: Acute (8) Acute urinary obstruction: Code(s): N13.9 - Obstructive and reflux uropathy, unspecified Status: Acute (9) Parkinsons disease: Code(s): G20 - Parkinson's disease Status: Acute (10) Hyperlipidemia: Code(s): E78.5 - Hyperlipidemia, unspecified Status: Acute (11) Hypertension: Code(s): I10 - Essential (primary) hypertension Status: Acute DS: Summary Hospital Course Reason for hospitalization: Weakness Hospital Course: 80-year-old male admitted with generalized weakness found to have acute urinary obstruction and urinary tract infection. Urology was consulted and Escalante catheter was inserted with resolution of obstruction and improvement of acute kidney injury. Patient was treated with IV antibiotic therapy for his urinary tract infection. He had a benign clinical course and did well. He was subsequently discharged home with 5 more days of Cipro and Escalante catheter to be seen outpatient by Urology for removal in their office. Patient advised to follow-up with his primary care physician within a week. 10/15/20 Patient admitted to step-down unit for urosepsis. Urology consulted and Escalante catheter placed. Anticipate rapid improvement of renal function. Patient started on Zosyn in the ER will continue for now pending further workup. Panculture pending Home medications for chronic diseases will be continued. VTEP heparin and SCDs 10/16/20 Renal function is improving as anticipated patient has chronic CKD 3. Patient remains with elevated. Vital signs are stable on home medications. Zosyn changed to Rocephin as greater than 100,000 colony-forming units of g negative bacilli have been reported on urine Gram stain. Anticipate transfer to [facility] in the next 24 hours. 10/17/20 pt doing ok WBCs down trending and renal function improved will dc tomorrow if remains in stable condition and afebrile w resolving leukocytosis tomorrow. Will need outpt f/u w urology for removal of Escalante catheter 10/18/20 Discharge home in stable condition with indications of follow-up with Urology and his PCP. Status at Discharge Functional status at discharge: independent ambulation Overall status at discharge: patient is back to baseline Time Spent with Patient Time attestation: Total time spent providing and/or coordinating discharge services: Time spent: Greater than 30 minutes Exam Narrative: GEN: NAD, AAOx3, coope
[2020-10-18 14:00] VITALS: BP 156/77; PULSE 92; RESP 16; TEMP 36.4; O2SAT 100
== END 2020-10-18 14:35 | disposition home health service (06) | DRG 872 ==
LOC: ANHED 21:01 → ANHIMU 10-15 06:47 → ANH3MEDSUR 10-18 11:48 → ANHICU 10-21 09:55 → ANHIMU 10-21 09:55
PROVIDERS: Admitting Provider Internal Medicine; Emergency Provider General Practice; PCP Family Medicine; Visit Provider Hospitalist
DX: A41.9 Sepsis, unspecified organism (principal); N17.9 Acute kidney failure, unspecified; N13.6 Pyonephrosis; R97.20 Elevated prostate specific antigen [PSA]; N40.1 Benign prostatic hyperplasia with lower urinary tract symptoms; R35.0 Frequency of micturition; N13.9 Obstructive and reflux uropathy, unspecified; E86.0 Dehydration; I12.9 Hypertensive chronic kidney disease with stage 1 through stage 4 chronic kidney disease, or unspecified chronic kidney disease; N18.30 Chronic kidney disease, stage 3 unspecified; E78.5 Hyperlipidemia, unspecified; G20 Parkinson's disease; K21.9 Gastro-esophageal reflux disease without esophagitis; Z87.891 Personal history of nicotine dependence; Z79.82 Long term (current) use of aspirin; Z79.899 Other long term (current) drug therapy
CPT/HCPCS: 36415; 51701; 70450; 71045; 74176; 76775; 80048; 80053; 81001; 83605; 83690; 83735; 84484; 85025; 85055; 85730; 87040; 87077; 87086; 87088; 87186; 93005; 96361; 96365; 97161; 97165; 99285; A9270; J0696; J1644; J2543; J7030; J7040

== ENCOUNTER 2021-06-06 15:53 | Emergency (ER) | payer MEDICARE, SELFPAY ==
--- NOTE | ~2021-06-06 | CT_ITS ---
EXAMINATION: CT cervical spine wo con DATE: 06/06/2021 16:19 INDICATION: Head injury. TECHNIQUE: Computed tomography (CT) of the cervical spine was performed without intravenous contrast. Automated exposure control and iterative reconstruction technique were employed. The dose-length pro duct was 404.19 mGy-cm. COMPARISON: None FINDINGS: Bone alignment is normal. Vertebral body heights are normal. There is mildly decreased disc height at C4-C5, moderately decreased disc height at C5-C6, and mildly decreased disc height at C6-C 7. The following disc levels are specifically discussed: C2-C3: There is severe right and moderate left uncovertebral joint osteoarthritis. There is severe bi lateral facet joint osteoarthritis. There is mild bilateral neural foraminal stenosis. There is mild central canal stenosis. C3-C4: There is severe bilateral uncovertebral joint osteoarthritis. There is severe bilateral facet joint osteoarthritis. There is mild right and moderate left neural foraminal stenosis. There is mild central canal stenosis. C4-C5: There is severe bilateral uncovertebral joint osteoarthritis. There is severe right and modera te left facet joint osteoarthritis. There is mild bilateral neural foraminal stenosis. There is mild central canal stenosis. C5-C6: There is mild right and moderate left uncovertebral joint osteoarthritis. There is moderate ri ght and severe left facet joint osteoarthritis. There is mild bilateral neural foraminal stenosis. Th ere is mild central canal stenosis. C6-C7: There is no uncovertebral joint osteoarthritis. There is moderate bilateral facet joint osteoa rthritis. There is no neural foraminal stenosis. There is no central canal stenosis. C7-T1: There is no uncovertebral joint osteoarthritis. There is severe bilateral facet joint osteoart hritis. There is mild bilateral neural foraminal stenosis. There is no central canal stenosis. IMPRESSION: 1. No fracture. 2. Moderate cervical spondylosis. Reviewed, dictated and finalized at location E.
--- NOTE | ~2021-06-06 | CT_ITS ---
EXAMINATION: CT brain wo con DATE: 06/06/2021 16:19 INDICATION: Head injury. TECHNIQUE: Computed tomography (CT) of the head was performed without intravenous contrast. The mA wa s adjusted according to patient size. Iterative reconstruction technique was employed. The dose-lengt h product was 605.33 mGy-cm. COMPARISON: Head CT 10/14/2020, brain MRI 02/23/2012 FINDINGS: There are scattered areas of low attenuation in the cerebral white matter, which is within normal limits for the patient's age. There is no intracranial hemorrhage, acute infarction, or abnorm al intracranial mass lesion. The orbits are normal. There is mild mucosal thickening in the paranasal sinuses. The mastoid air cells are normal. IMPRESSION: 1. Normal aging brain. Reviewed, dictated and finalized at location E. IMPRESSION: 1. Normal aging brain.
[2021-06-06 15:56] VITALS: BP 158/93; PULSE 73; RESP 18; O2SAT 100
--- NOTE | 2021-06-06 18:09 | ED.HEATRA ---
HPI - Head Injury General Chief complaint: Fall Stated complaint: fall Time Seen by Provider: 06/06/21 16:06 Source: patient Mode of arrival: EMS Limitations: no limitations History of Present Illness HPI Narrative: 81-year-old male presents emergency room after a fall at home. He lives at home by himself. He states he was using his walker and he was going backwards when he lost his balance and fell striking the back of his head in the right occipital region. Had no loss of consciousness. He was brought in by EMS with a cervical collar in place. He denies any pain to his upper or lower extremities. Also denies any chest or abdominal pain. States he is actually feeling fine at this point. He is not on any blood thinners. Related Data Home Medications Medication Instructions Recorded Confirmed aspirin 81 mg tablet,delayed 81 mg PO DAILY 04/19/19 10/15/20 release rosuvastatin 10 mg PO DAILY 10/15/20 10/15/20 tamsulosin 0.4 mg PO DAILY 10/15/20 10/15/20 Allergies Allergy/AdvReac Type Severity Reaction Status Date / Time No Known Allergies Allergy Verified 11/27/20 13:23 Review of Systems Review of Systems: CONSTITUTIONAL: Denies fever, chills, or sweats. EYES: Denies visual changes, redness, or discharge. ENT: Denies rhinorrhea, congestion, sore throat, or otalgia. CARDIOVASCULAR: Denies chest pain, palpitations, or edema. RESPIRATORY: Denies cough or dyspnea. GASTROINTESTINAL: Denies abdominal pain, nausea, vomiting, or diarrhea. GENITOURINARY: Denies dysuria or hematuria. SKIN: Denies rash or itching. MUSCULOSKELETAL: Denies back pain, joint pain, or myalgia. NEUROLOGIC: Denies headache, numbness, or weakness. PSYCHIATRIC: Denies anxiety or depression. [facility] Past Medical History Medical History Hyperlipidemia Hypertension Parkinsons disease Family History Family History Father Family history of cardiovascular disease Family history of elevated blood lipids Diabetes mellitus Suicide Mother Family history of malignant neoplasm of breast in first degree relative Other Hypertension Social History Social History Smoking packs per day: 3 Smoking cigarettes per day: 60.0 Years smoked: 11 Smoking pack-years: 33.00 Smoking status: Former smoker Tobacco type: cigarettes Smoking end date: 10/15/64 Alcohol intake: current Drinks per week: 4 Gender identity (if verbalized by the patient): Male Spiritual care concerns: No Exam Narrative: APPEARANCE: Well appearing, no pain in distress, well-nourished. Head normocephalic, no to have ecchymosis approximately 3 cm in diameter in the right occipital region. No bony abnormalities were able to be palpated.. EYES: PERRLA/EOMI, conjunctivae very clear. NOSE: Normal no drainage EARS:TMS clear Abdirizak Valdez, with good light reflex. THROAT: Pharynx clear, no exudate. NECK: Supple. No adenopathy, no masses. RESPIRATORY: Airway patent, repsirations nonlabored. Clear to auscultation bilaterally, no rales, rhonchi, wheezing. CARDIOVASCULAR: Regular rate and rhythm without murmurs rubs or gallops. ABDOMINAL: Soft, nontender, nondistended, no hepatosplenomegally MUSCULOSKELETAl: Moves all extremities. Strenght/ROM intact, No edema, No calf tenderness. NEURO: Alert. Cranial nerves II through XII intact. Good gait. Good coordination SKIN:: Warm, dry. Normal Color PSYCHIATRIC: Normal affect/mood, normal interaction with parents. Course Course Emergency Course: CT scan was performed of the head and neck with no abnormalities noted. Patient had a cervical collar removed by me. Patient not having any other complaints at this time will be discharged home care. Vital Signs Vital signs: Vital Signs Pulse Rate 73 06/06/21 15:56 Respiratory Rate 18 06/06/21 15:56 Blood Pressure 158/93
[2021-06-06 18:24] VITALS: BP 126/73; PULSE 86; RESP 18; O2SAT 99
== END 2021-06-06 18:25 | disposition home or self-care (01) ==
PROVIDERS: Emergency Provider Emergency Medicine; PCP Family Medicine
DX: S09.90XA Unspecified injury of head, initial encounter (principal); S16.1XXA Strain of muscle, fascia and tendon at neck level, initial encounter; E78.5 Hyperlipidemia, unspecified; I10 Essential (primary) hypertension; G20 Parkinson's disease; Z87.891 Personal history of nicotine dependence; M47.812 Spondylosis without myelopathy or radiculopathy, cervical region; W18.39XA Other fall on same level, initial encounter
CPT/HCPCS: 70450; 72125; 99284

== ENCOUNTER 2021-08-24 20:01 | Emergency (ER) | payer MEDICARE, SELFPAY ==
[2021-08-24 20:19] VITALS: BP 149/91; PULSE 85; RESP 16; TEMP 36.6; O2SAT 98
--- NOTE | 2021-08-24 20:51 | ED.MALEGU ---
HPI - Male Genitourinary General Chief complaint: Urogenital-Male Stated complaint: Needs catheter put in Time Seen by Provider: 08/24/21 20:28 History of Present Illness HPI Narrative: 81-year-old male presents here with difficulty urinating, he had a had a Dotson placed about a week ago when he was on vacation in [place] due to difficulties voiding, had follow-up with his urologist today and had his Dotson removed 10 hours ago, and today was unable to void afterwards. He is feeling quite uncomfortable and was only able to void a very tiny amount. Started on and is taking Flomax. Related Data Home Medications Medication Instructions Recorded Confirmed aspirin 81 mg tablet,delayed 81 mg PO DAILY 04/19/19 06/30/21 release rosuvastatin 10 mg tablet 10 mg PO DAILY 10/15/20 06/30/21 tamsulosin 0.4 mg capsule 0.4 mg PO DAILY 10/15/20 06/30/21 Allergies Allergy/AdvReac Type Severity Reaction Status Date / Time No Known Allergies Allergy Verified 06/30/21 15:49 Review of Systems Review of Systems: CONST: No fever. HEENT: No sore throat C/V: No chest pain RESP: No cough GI: Reports abdominal pain : Urinary retention. M/S: No joint pain. SKIN: No rash. NEURO: [No headache or focal numbness or weakness] PSYCH: [No depression] [facility] Past Medical History Medical History Hyperlipidemia Hypertension Parkinsons disease Family History Family History Father Family history of cardiovascular disease Family history of elevated blood lipids Diabetes mellitus Suicide Mother Family history of malignant neoplasm of breast in first degree relative Other Hypertension Social History Social History Smoking packs per day: 3 Smoking cigarettes per day: 60.0 Years smoked: 11 Smoking pack-years: 33.00 Smoking status: Former smoker Tobacco type: cigarettes Smoking end date: 10/15/64 Alcohol intake: current Drinks per week: 4 Gender identity (if verbalized by the patient): Male Spiritual care concerns: No Exam Narrative: EXAMINATION OF ORGAN SYSTEMS/BODY AREAS: Constitutional: Vital signs per nursing GENERAL: Appears uncomfortable and HEAD: Normal with no signs of head trauma. EYES: EOMI, conjunctiva normal LUNGS: Nonlabored breathing. HEART: [Regular rate and rhythm] ABD: [Soft], [uncomfortable to palpation suprapubic] EXT: Normal range of motion SKIN: [No rashes or lesions.] NEURO: [Alert and oriented x 3. No gross focal sensory or strength deficits.] PSYCH: Normal affect Course Vital Signs Vital signs: Vital Signs Temperature 97.9 F 08/24/21 20:19 Pulse Rate 85 08/24/21 20:19 Respiratory Rate 16 08/24/21 20:19 Blood Pressure 149/91 H 08/24/21 20:19 Pulse Oximetry 98 08/24/21 20:19 Oxygen Delivery Room Air 08/24/21 20:19 Temperature 97.9 F 08/24/21 20:19 Pulse Rate 85 08/24/21 20:19 Respiratory Rate 16 08/24/21 20:19 Blood Pressure 149/91 H 08/24/21 20:19 Pulse Oximetry 98 08/24/21 20:19 Oxygen Delivery Room Air 08/24/21 20:19 MDM - Male Genitourinary MDM Narrative Medical decision making narrative: 81-year-old male presenting with urinary retention since Dotson removal about 10 hours ago, vital stable, exam shows uncomfortable patient with some suprapubic discomfort, I did perform a bedside ultrasound and noted around 600 cc per urine. Given this I did feel it was necessary to replace the dotson, check UA which does show some WBCs so I will start him on antibiotics and have patient follow up with his urologist. Lab Data Labs: Lab Results 08/24/21 Range/Units 21:13 Urine Color Yellow (Yellow) Urine Appearance Clear (Clear) Urine pH 6.5 (5.0-9.0) Ur Specific [place] 1.010 (1.001-1.035) Urine Protein Negative (Negative) mg/dL Urine Glucose (UA) Negat
[2021-08-24 21:18] LABS: Appearance Urine Clear (Clear); Bilirubin Urine Negative (Negative); Blood Urine Trace-lysed (Negative); Color Urine Yellow (Yellow); Glucose Urine UA Negative (Negative); Ketones Urine Negative (Negative); Leukocyte Esterase Ur 3+ LEU/UL (Negative); Nitrate Urine Negative (Negative); Protein Urine Negative (Negative); Urobilinogen Urine 0.2 mg/dL (<2.0); pH Urine 6.5 (5.0-9.0)
[2021-08-24 21:33] LABS: Bacteria Urine Trace /hpf; Mucus Urine Rare /lpf; RBC Urine 0-2 /hpf (0-2); WBC Urine 21-30 /hpf
[2021-08-24 21:34] LABS: Add Urine Microscopic? YES
[2021-08-24 22:00] VITALS: BP 131/81; PULSE 78; RESP 18; O2SAT 98
== END 2021-08-24 22:00 | disposition home or self-care (01) ==
PROVIDERS: Emergency Provider Emergency Medicine; PCP Family Medicine
DX: N39.0 Urinary tract infection, site not specified (principal); R33.9 Retention of urine, unspecified; E78.5 Hyperlipidemia, unspecified; I10 Essential (primary) hypertension; G20 Parkinson's disease; Z79.82 Long term (current) use of aspirin; Z87.891 Personal history of nicotine dependence
CPT/HCPCS: 51702; 81001; 87077; 87086; 87186; 99283

== ENCOUNTER 2021-10-08 00:49 | Day surgery (SDC) | payer MEDICARE, SELFPAY ==
--- NOTE | 2021-10-05 07:31 | PM.IMHP ---
H&P: HPI History of Present Illness Date/Time: 10/05/21 07:31 Chief Complaint: Urinary retention Narrative: Leo mart has been a patient in our practice since 2012. 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 This persist despite combination therapy with finasteride and tamsulosin. Recent urodynamics revealed good detrusor function with evidence of bladder outlet obstruction. After discussion of the therapeutic options including ongoing medical therapy, minimally invasive procedures and TURP has elected for the latter. He is aware of the risk of this including, but not limited to, adverse cardiopulmonary events, postoperative hematuria, persistent irritable and/or obstructive voiding symptoms. Review of Systems Cardiovascular: Cardiovascular: Denies chest pain, Denies lightheadedness, Denies palpitations and Denies dyspnea Respiratory: Respiratory: Denies dyspnea Gastrointestinal: Gastrointestinal: Denies diarrhea, Denies nausea and Denies vomiting Genitourinary: Genitourinary: Denies hematuria and Denies dysuria Endocrine: Endocrine: Denies palpitations PMFSH Past Medical History Medical History Hyperlipidemia Hypertension Parkinsons disease Family History Family History Father Family history of cardiovascular disease Family history of elevated blood lipids Diabetes mellitus Suicide Mother Family history of malignant neoplasm of breast in first degree relative Other Hypertension Social History Social History Smoking packs per day: 3 Smoking cigarettes per day: 60.0 Years smoked: 11 Smoking pack-years: 33.00 Smoking status: Former smoker Tobacco type: cigarettes Smoking end date: 10/15/64 Alcohol intake: current Drinks per week: 4 Gender identity (if verbalized by the patient): Male Spiritual care concerns: No Meds Home Medications and Allergies Home Medications Medication Instructions Recorded Confirmed Type aspirin 81 mg tablet,delayed 81 mg PO DAILY 04/19/19 06/30/21 History release rosuvastatin 10 mg tablet 10 mg PO DAILY 10/15/20 06/30/21 History tamsulosin 0.4 mg capsule 0.4 mg PO DAILY 10/15/20 06/30/21 History finasteride 5 mg tablet (Proscar) 5 mg PO QAM #30 tabs 10/16/20 06/30/21 Rx ciprofloxacin HCl 500 mg tablet 250 mg PO Q12H #14 tabs 10/18/20 06/30/21 Rx carbidopa 25 mg-levodopa 100 mg See Rx Instructions .Route 06/17/21 06/30/21 Rx tablet .COMPLEX #1,080 tabs omeprazole 20 mg capsule,delayed See Rx Instructions .Route 06/17/21 06/30/21 Rx release .COMPLEX #90 caps ropinirole 1 mg tablet See Rx Instructions .Route 06/17/21 06/30/21 Rx .COMPLEX #540 tabs sulfamethoxazole 800 1 tablet PO Q12H #14 tabs 08/24/21 Rx mg-trimethoprim 160 mg tablet (Bactrim DS) metoprolol succinate 25 mg See Rx Instructions .Route 09/15/21 Rx tablet,extended release 24 hr .COMPLEX #90 tabs Allergies Allergy/AdvReac Type Severity Reaction Status Date / Time No Known Allergies Allergy Verified 06/30/21 15:49 Exam Const: General: no acute distress Resp: Effort & Inspection: normal respiratory effort GI: Inspection: non-distended GI Palp: No abdominal tenderness and No Guarding due to palpation present (GI) Auscultation: normal bowel sounds Assessment and Plan Assessment and plan (1) Acute urinary obstruction: Code(s): N13.9 - Obstructive and reflux uropathy, unspecified Status: Acute Assessment and Plan: TURP (2) BPH loc w urin obs/LUTS: Code(s): N40.1 - Benign prostatic hyperplasia with lower urinary tract symptoms Status: Acute
[2021-10-05 08:12] VITALS: BMI 31.4
--- NOTE | 2021-10-05 08:18 | PC.NURSE ---
Addendum entered by Shanthi Molina RN 10/05/21 08:39: PRE-OP INSTRUCTIONS REVIEWED VIA PHONE TO PT'S SON NIKKI - UNDERSTANDING VOICED Original Note: Report to the Outpatient Waiting Room, entrance under the green pavilion located off [facility], at time _0600_ on date _10/08/21_. OR Time: _0730_. - You and your visitor will be asked a series of questions to screen for COVID 19 for your protection. - Only one visitor is allowed at this time. - The patient visitor is requested to leave or wait in car when not with patient. - A mask is required within the hospital. Patients may have clear liquids (water, carbonated beverages, clear teas, apple juice) until 3 hours prior to surgery (0430 AM) with a maximum of 20 ounces. - No food from midnight until time of surgery Take the following medications with a SIP of water the morning of surgery: _CARBIDOPA-LEVODOPA, METOPROLOL_ Medications to discontinue per physician _ASPIRIN PER DR. ALLISON'S INSTRUCTIONS, Date to take last dose____ Please no make-up, nail kazakh, hairspray, perfume, deodorant, or body powder the day of surgery. No jewelry (including any body piercings) or valuables the day of surgery, leave them at home. Please take a shower or bath the night before, or the morning of, surgery with an antibacterial soap. Wear comfortable, loose fitting clothing. Children are encouraged to wear pajamas. - Jewelry must be removed prior to entering the operating room. Rings and piercings that are not removed may be cut off. - The hospital will not accept responsibility for valuables. - Please leave all valuables, including medications, at home the day of surgery. If you are going home after surgery, a licensed drivers license examiner must drive you home. - NO public transportation without another adult. - We recommend that an adult stay with you for 24 hours following discharge. - We also recommend that you do not drive, make important decision, drink alcoholic beverages, or take any drugs that were not prescribed by your health care provider for at least 24 hours after your discharge time. Follow any additional instructions given to you from your surgeon. If you or anyone in your household have experienced Covid symptoms in the past week, please notify your surgeon or the nurse liaison at the phone number below for possible testing. Telephone instructions given to __PT and asked if any additional questions and then verbalized understanding. Patient advised to call surgeon office or pre surgery nurse liaison [phone] if any additional questions.
--- NOTE | 2021-10-07 10:48 | WPDANESEPPF ---
Anes - Initial Pre Proc Eval Procedure: Operation Date: 10/08/21 07:30 Proposed Procedures p Trans Urethral Resection Prostate - Og Salcedo MD Date/Time: 10/07/21 10:48 Surgeon: Og Salcedo MD Pre Op Diagnosis: Urinary Retenion Patient Data Age: 81 Gender: M Height: 1.7 m Weight: 90.9 kg Allergies Allergy/AdvReac Type Severity Reaction Status Date / Time No Known Allergies Allergy Verified 06/30/21 15:49 Home Medications Medication Instructions Recorded Confirmed Type aspirin 81 mg tablet,delayed 81 mg PO DAILY 04/19/19 10/08/21 History release rosuvastatin 10 mg tablet 10 mg PO DAILY 10/15/20 10/05/21 History finasteride 5 mg tablet (Proscar) 5 mg PO QAM #30 tabs 10/16/20 10/08/21 Rx carbidopa 25 mg-levodopa 100 mg See Rx Instructions .Route 06/17/21 10/08/21 Rx tablet .COMPLEX #1,080 tabs omeprazole 20 mg capsule,delayed See Rx Instructions .Route 06/17/21 10/05/21 Rx release .COMPLEX #90 caps ropinirole 1 mg tablet See Rx Instructions .Route 06/17/21 10/08/21 Rx .COMPLEX #540 tabs metoprolol succinate 25 mg See Rx Instructions .Route 09/15/21 10/05/21 Rx tablet,extended release 24 hr .COMPLEX #90 tabs tamsulosin 0.4 mg capsule 0.4 mg PO DAILY 10/08/21 10/08/21 History Patient hx anesthesia problems: none Family hx anesthesia problems: none Results Review: All pre-operative results and documents have been reviewed as part of the pre-operative evaluation. [facility] Past Medical History Medical History (Updated 10/08/21 @ 07:04 by Sanjiv Ng MD) Acute kidney injury superimposed on CKD CKD3 Hyperlipidemia Hypertension Overweight (BMI 25.0-29.9) Parkinsons disease Family History Family History Father Family history of cardiovascular disease Family history of elevated blood lipids Diabetes mellitus Suicide Mother Family history of malignant neoplasm of breast in first degree relative Other Hypertension Social History Social History Smoking packs per day: 3 Smoking cigarettes per day: 60.0 Years smoked: 11 Smoking pack-years: 33.00 Smoking status: Former smoker Tobacco type: cigarettes Second hand tobacco smoke exposure: No Smoking end date: 10/15/64 Alcohol intake: current Drinks per week: 4 Alcohol use details: PT STATES VERY SELDOM - MAYBE 4 IN A 1/2 YR Substance use: never Substance use type: does not use Living arrangements: alone Gender identity (if verbalized by the patient): Male Spiritual care concerns: No Anes - Eval Final PreProcedure Day of Procedure 10/07/21 10:48 Patient weight: overweight Heart: regular rate and rhythm Lungs: clear to auscultation and normal air movement Airway: Mallampati scale class II Neurological: alert and oriented Last oral intake: >/= 8 hours ASA classification: III Emergent: no Anesthetic plan: proceed Anesthesia type and monitoring: general LMA Results Review: All pre-operative results and documents have been reviewed as part of the pre-operative evaluation. Informed Consent: The patient's anesthetic plan and its attendant risks and benefits were discussed with the patient/family/POA. Questions were solicited and answers provided to the satisfaction of the patient/family/POA.
[2021-10-08] VITALS (30 sets, daily range): BP systolic 105–150; BP diastolic 60–87; PULSE 51–87; RESP 10–17; TEMP 36.2–37; O2SAT 94–100
--- NOTE | 2021-10-08 06:30 | WPDHPUPDATE1 ---
History and Physical Update Update Date/Time: 10/08/21 06:30 History and Physical has been reviewed, including an updated exam of the patient. There are NO changes in the patient's condition. Risks, benefits, and alternatives have been discussed and questions answered. Patient agrees to proceed with procedure.
[2021-10-08] MEDS: LACTATED RINGERS 1,000 ML 30 ML IV CONT ×2 (06:46→08:40)
[2021-10-08] MEDS: ceFAZolin 2 GM/D5W 50 ML 2 GM/50 ML BAG IVPB (07:38)
--- NOTE | 2021-10-08 08:54 | W.PM.PROC2 ---
Procedure Note - Detailed Date of Procedure 10/08/21 Pre-op Diagnosis Urinary retention due to BPH Post-op Diagnosis Same Procedure Performed TURP Surgeon Og Salcedo MD Anesthesia General Description of Procedure The patient was brought to the operative suite where he is prepped and draped in routine sterile fashion while in the dorsal lithotomy position after the uneventful induction of a general LMA anesthetic. A 27 Macedonian resectoscope sheath was placed into his bladder. He had no urethral strictures. The patient had trilobar hyperplasia with small median lobe. The bladder itself was endoscopically normal, showing no mucosal hyperemia, intravesical neoplasm or foreign bodies. There was a single, orthotopic ureteral orifice bilaterally. These orifices were identified and preserved throughout the remainder of the procedure. Attention was first turned to resection of the median lobe. This resection was undertaken from the bladder neck to the verumontanum and carried out until the transverse fibers of the bladder neck were identified. The left lateral lobe was then resected starting at the 6 o'clock position, working counter clockwise to the 12 o'clock position. Again, resection was carried out from the bladder neck to the verumontanum until the capsular fibers of the prostate were identified. The right lateral lobe was resected in a similar fashion starting at the 6 o'clock position working clockwise to the 12 o'clock position and carried out until the capsular fibers of the prostate were identified. Apical tissue was then circumferentially resected. All chips were evacuated from the bladder using an [employer] evacuator. Hemostasis was obtained with electric cautery. The ureteral orifices were again inspected and found to be without injury. Estimated blood loss throughout this procedure was 50cc. The patient was taken to recovery room having tolerated this well. Drains No Packing No Pathology Yes Complications No immediate complications Condition Stable
--- NOTE | 2021-10-08 12:10 | SUR.PHASEI ---
1205 transferred to op recovery(17) waiting for bed up on 2med, report given to doyle de jesus)
--- NOTE | 2021-10-08 12:11 | SUR.PHASEI ---
1205 pt transferred to chair
--- NOTE | 2021-10-08 12:29 | SUR.PHASEI ---
PATIENT MOVED TO OP AREA ROOM 18 WHILE WAITING FOR ROOM ON FLOOR. LUNCH ORDERED. PATIENT COMFORTABLE SITTING ON RECLINER. CBI IN PROGRESS.
--- NOTE | 2021-10-08 12:58 | SUR.PHASEI ---
EATING LUNCH WITH GOOD APPETITE.
--- NOTE | 2021-10-08 14:28 | SUR.PHASEI ---
PATIENT DIDN'T WANT RN TO UPDATE ANY FAMILY. HE SPOKE WITH FAMILY ON HIS CELL PHONE.
--- NOTE | 2021-10-08 14:49 | ADMGEN ---
This patient, Abdulaziz Goins, was admitted to 2 Medical Room 241-. Patient/family oriented to hospital policies and general routines including ID bracelet, bed and alarms, visiting hours, pain management, procedures, bathroom and other care routines, personal items, smoking policy, room service/diet, and visiting hours. Information on how to activate the Rapid Response Team has been discussed. Patient/Family are encouraged to report perceived risks to care and to ask questions if they do not understand what they are told or what they should do.
[2021-10-08] MEDS: ROSUVASTATIN 10 MG TABLET PO (15:11)
[2021-10-08] MEDS: rOPINIRole HCL 0.5 MG TABLET 1.5 MG BY MOUTH ×2 (16:27→20:18)
[2021-10-08] MEDS: CARBIDOPA/LEVODOPA 25/100 MG TABLET 3 TABLET BY MOUTH ×2 (16:38→20:17)
[2021-10-09 03:22] VITALS: BP 143/69; PULSE 50; RESP 17; TEMP 36.3; O2SAT 96
[2021-10-09 05:52] LABS: Hematocrit 34.4 % (42.0-52.0); Hemoglobin 10.9 g/dL (14.0-18.0)
[2021-10-09 06:07] LABS: Anion Gap 10 mmol/L (8-16); Blood Urea Nitrogen 20 mg/dL (9-20); Calcium 8.6 mg/dL (8.4-10.2); Carbon Dioxide 25 mmol/L (22-30); Chloride 101 mmol/L (98-107); Estimated CRCL calculation 48 ml/min; Estimated Glomerular Filt Rate > 60; Glucose 114 mg/dL (65-110); Potassium 4.2 mmol/L (3.4-5.0); Sodium 136 mmol/L (137-145)
--- NOTE | 2021-10-09 06:34 | WPDUROPN2 ---
Progress Note: A&P Assessment and Plan (1) BPH loc w urin obs/LUTS: Code(s): N40.1 - Benign prostatic hyperplasia with lower urinary tract symptoms Status: Acute Assessment and Plan: Doing well POD #1 TURP Urine clear with CBI off this morning. Catheter out for voiding trial. Subjective Subjective Date/Time Seen: 10/09/21 06:34 Comfortable, no complaints Review of Systems Cardiovascular: Cardiovascular: Denies chest pain, Denies lightheadedness, Denies palpitations and Denies dyspnea Respiratory: Respiratory: Denies dyspnea Gastrointestinal: Gastrointestinal: Denies diarrhea, Denies nausea and Denies vomiting Genitourinary: Genitourinary: Denies hematuria and Denies dysuria Endocrine: Endocrine: Denies palpitations Exam Const: General: no acute distress Resp: Effort & Inspection: normal respiratory effort GI: Inspection: non-distended GI Palp: No abdominal tenderness and No Guarding due to palpation present (GI) Auscultation: normal bowel sounds Urinary Catheter: Urinary Catheter: patent and draining and urine clear Objective Data Vital Signs Vital Signs: Vital Signs - 24 hr 10/08/21 06:42 10/08/21 08:45 10/08/21 09:00 Temperature 98.5 F 97.3 F L Pulse Rate 71 64 66 Respiratory Rate 14 16 12 Blood Pressure 143/80 H 123/76 136/72 Pulse Oximetry 100 100 100 Oxygen Delivery Room Air Simple Face Mask Simple Face Mask Oxygen Flow Rate 8 8 10/08/21 09:15 10/08/21 09:30 10/08/21 09:45 Temperature Pulse Rate 66 61 63 Respiratory Rate 16 13 10 L Blood Pressure 150/65 H 145/80 H 143/75 H Pulse Oximetry 100 99 100 Oxygen Delivery Simple Face Mask Room Air Room Air Oxygen Flow Rate 8 10/08/21 10:00 10/08/21 10:15 10/08/21 10:30 Temperature Pulse Rate 64 60 62 Respiratory Rate 14 12 10 L Blood Pressure 142/79 H 146/77 H 143/87 H Pulse Oximetry 98 98 100 Oxygen Delivery Room Air Room Air Room Air Oxygen Flow Rate 10/08/21 10:45 10/08/21 11:00 10/08/21 11:15 Temperature Pulse Rate 60 56 L 78 Respiratory Rate 12 10 L 12 Blood Pressure 133/70 134/71 136/76 Pulse Oximetry 99 98 98 Oxygen Delivery Room Air Room Air Room Air Oxygen Flow Rate 10/08/21 11:30 10/08/21 11:45 10/08/21 12:00 Temperature Pulse Rate 62 58 L 71 Respiratory Rate 12 12 12 Blood Pressure 131/73 115/72 115/66 Pulse Oximetry 98 99 100 Oxygen Delivery Room Air Room Air Room Air Oxygen Flow Rate 10/08/21 12:15 10/08/21 12:30 10/08/21 12:41 Temperature Pulse Rate 65 62 62 Respiratory Rate 16 16 16 Blood Pressure 136/69 134/78 134/78 Pulse Oximetry Oxygen Delivery Room Air Room Air Room Air Oxygen Flow Rate 10/08/21 12:55 10/08/21 13:25 10/08/21 13:55 Temperature 97.5 F L Pulse Rate 76 87 86 Respiratory Rate 16 16 16 Blood Pressure 141/83 H 105/61 146/83 H Pulse Oximetry 100 Oxygen Delivery Room Air Room Air Room Air Oxygen Flow Rate 10/08/21 14:10 10/08/21 14:27 10/08/21 14:45 Temperature 97.8 F 97.8 F Pulse Rate 72 66 66 Respiratory Rate 16 16 16 Blood Pressure 119/72 136/72 136/77 Pulse Oximetry 98 98 Oxygen Delivery Oxygen Flow Rate 10/08/21 15:00 10/08/21 15:30 10/08/21 16:30 Temperature 97.5 F L 97.8 F 98.6 F Pulse Rate 61 60 60 Respiratory Rate 16 16 16 Blood Pressure 136/69 138/63 126/67 Pulse Oximetry 94 99 99 Oxygen Delivery Oxygen Flow Rate 10/08/21 19:16 10/08/21 23:12 10/09/21 03:22 Temperature 97.1 F L 97.8 F 97.3 F L Pulse Rate 61 51 L 50 L Respiratory Rate 17 17 17 Blood Pressure 111/60 127/65 143/69 H Pulse Oximetry 99 97 96 Oxygen Delivery Oxygen Flow Rate Intake/Output Intake/Output: Intake & Output 10/06/21 10/07/21 10/08/21 10/09/21 23:59 23:59 23:59 23:59 Intake Total 2190 240 Output Total 30864 Balance -35434 240 Meds/Results Medications: Active Medications Generic Name Dose Route Start Last Admin Trade Name Freq PRN Reason Stop Dose Ad
[2021-10-09 08:20] VITALS: PULSE 55
[2021-10-09] MEDS: CEPHALEXIN 500 MG CAPSULE PO (08:20)
[2021-10-09] MEDS: CARBIDOPA/LEVODOPA 25/100 MG TABLET 3 TABLET BY MOUTH (08:20)
[2021-10-09] MEDS: PANTOPRAZOLE 40 MG TABLET PO (08:20)
[2021-10-09] MEDS: DOCUSATE SODIUM 100 MG CAPSULE PO (08:20)
[2021-10-09] MEDS: METOPROLOL SUCCINATE EXT REL 25 MG TABCR BY MOUTH (08:20)
[2021-10-09] MEDS: ROSUVASTATIN 10 MG TABLET PO (08:21)
[2021-10-09] MEDS: rOPINIRole HCL 0.5 MG TABLET 1.5 MG BY MOUTH (08:21)
[2021-10-09 10:03] VITALS: BP 122/76; PULSE 58; RESP 16; TEMP 36.1; O2SAT 97
--- NOTE | 2021-10-09 10:18 | WPDANESPN ---
Anes - Prog Note Post-Op Date/Time: 10/09/21 10:18 Vital Signs: Last Vital Signs Temp 36.1 C L 10/09/21 10:03 Pulse 58 L 10/09/21 10:03 Resp 16 10/09/21 10:03 BP 122/76 10/09/21 10:03 Pulse Ox 97 10/09/21 10:03 O2 Del Method Room Air 10/08/21 13:55 O2 Flow Rate 8 10/08/21 09:15 Pain Score (VAS): 0 I/O: Intake & Output 10/08/21 10/09/21 10/09/21 23:59 07:59 15:59 Intake Total 340 240 240 Output Total 1700 Balance -1360 240 240 Laboratory Tests 10/09/21 04:45 10/09/21 04:45 10/09/21 10/09/21 04:45 04:45 Hgb 10.9 L Hct 34.4 L Sodium 136 L Potassium 4.2 Chloride 101 Carbon Dioxide 25 Anion Gap 10 BUN 20 D Creatinine 1.00 Estim Creat Clear Calc 48 Estimated GFR > 60 Glucose 114 H Calcium 8.6 Patient Feedback: Patient satisfied with anesthetic care.
--- NOTE | 2021-10-09 12:12 | PM.DS ---
DS: Admitting Diagnosis Discharge Date 10/09/2021 Admitting Diagnosis BPH DS: Summary Hospital Course Hospital Course: This patient with longstanding prostatism refractory for medical management was admitted on the morning of his planned TURP. The procedure was undertaken on that same day in an uneventful fashion. His post-operative course was, likewise, uneventful. On the evening of the procedure he was tolerating a diet. On POD#1 his urine was clear on CBI. The urine remained clear and, therefore, the catheter was removed late morning. The patient was observed for several hours, until he demonstrated he could void effectively without significant hematuria. He was discharged with careful instruction on limiting physical activity x2 weeks and plans to f/ in 2-3 weeks. At discharge he was comfortable and tolerating a diet. Time Spent with Patient Time attestation: Total time spent providing and/or coordinating discharge services: DS: Data Data Completed and Pending Pending studies at discharge: Pending at discharge 10/08/21 08:27 Surgical [PTH] Routine Labs on day of discharge: Labs from last 24 hours 10/09/21 10/09/21 04:45 04:45 Hgb 10.9 L Hct 34.4 L Sodium 136 L Potassium 4.2 Chloride 101 Carbon Dioxide 25 Anion Gap 10 BUN 20 D Creatinine 1.00 Estim Creat Clear Calc 48 Estimated GFR > 60 Glucose 114 H Calcium 8.6 Discharge Plan Discharge Patient Disposition: Home, Self-Care Discharge Instructions: 1) Activity: No lifting/straining >15lbs. x2 weeks. 2) Diet: Resume normal pre-admission diet. 3) Follow-up: 2-3 weeks / call office for appointment ([phone]). Stand Alone Forms: General Discharge Instructions Discharge Orders: Discharge Order (Routine); Ordered 10/09/21 Ordered By: Og Salcedo Discharge Medications: New docusate sodium [Colace] 100 mg capsule 100 mg PO DAILY Qty: 30 0RF hydrocodone-acetaminophen 5-325 mg tablet 1 - 2 tablet PO Q6H PRN (Reason: pain) Qty: 20 0RF sulfamethoxazole-trimethoprim 800-160 mg tablet 1 tablet PO Q12H Qty: 6 0RF Continued rosuvastatin 10 mg tablet 10 mg PO DAILY ropinirole 1 mg tablet See Rx Instructions .ROUTE .COMPLEX Qty: 540 0RF Dose Instruction: TAKE 1 AND 1/2 TABLETS BY MOUTH FOUR TIMES DAILY Rx Instructions: TAKE 1 AND 1/2 TABLETS BY MOUTH FOUR TIMES DAILY omeprazole 20 mg capsule,delayed release(DR/EC) See Rx Instructions .ROUTE .COMPLEX Qty: 90 0RF Dose Instruction: TAKE 1 CAPSULE(20 MG) BY MOUTH DAILY Rx Instructions: TAKE 1 CAPSULE(20 MG) BY MOUTH DAILY carbidopa-levodopa 25-100 mg tablet See Rx Instructions .ROUTE .COMPLEX Qty: 1080 0RF Dose Instruction: TAKE 3 TABLETS BY MOUTH FOUR TIMES DAILY Rx Instructions: TAKE 4 TABLETS BY MOUTH FOUR TIMES DAILY metoprolol succinate 25 mg tablet extended release 24 hr See Rx Instructions .ROUTE .COMPLEX Qty: 90 0RF Dose Instruction: TAKE 1 TABLET BY MOUTH DAILY Rx Instructions: TAKE 1 TABLET BY MOUTH DAILY Held aspirin 81 mg tablet,delayed release (DR/EC) 81 mg PO DAILY Hold Instructions: Resume on 10/14/21. Discontinued finasteride [Proscar] 5 mg Tablet 5 mg PO QAM Qty: 30 12RF tamsulosin 0.4 mg capsule 0.4 mg PO DAILY
== END 2021-10-09 12:30 | disposition home or self-care (01) ==
LOC: ANHSURGERY 05:51 → ANH2MED 14:46
PROVIDERS: Visit Provider Urology
PROC: 0VT08ZZ Resection of Prostate, Via Natural or Artificial Opening Endoscopic (ICD-10-PCS; CPT 52601; principal; 2021-10-08 07:30)
DX: C61 Malignant neoplasm of prostate (principal); R33.8 Other retention of urine; Z79.82 Long term (current) use of aspirin; N13.9 Obstructive and reflux uropathy, unspecified; I12.9 Hypertensive chronic kidney disease with stage 1 through stage 4 chronic kidney disease, or unspecified chronic kidney disease; N18.30 Chronic kidney disease, stage 3 unspecified; G20 Parkinson's disease; Z87.891 Personal history of nicotine dependence
CPT/HCPCS: 52601; 36415; 80048; 85014; 85018; 88305; A9270; C1758; J0690; J1100; J2370; J2405; J2704; J3010; J7120

== ENCOUNTER 2021-10-23 09:59 | Outpatient (CLI) | payer MEDICARE, SELFPAY ==
--- NOTE | ~2021-10-23 | NM_ITS ---
EXAMINATION: NM bone scan whole body DATE: 10/23/2021 13:38 INDICATION: Prostate cancer. TECHNIQUE: 20.0 mCi Tc-99m HDP was administered intravenously. Delayed whole-body scintigrams were o btained. COMPARISON: CT abdomen and pelvis 10/23/2021 FINDINGS: There is joint-centered increased activity in the shoulders, sternoclavicular joints, knees , hips, and spine, likely osteoarthritis. IMPRESSION: 1. No evidence of metastatic disease. Reviewed, dictated and finalized at location A.
--- NOTE | ~2021-10-23 | CT_ITS ---
EXAMINATION: CT abdomen pelvis w con INDICATION: Prostate cancer TECHNIQUE: Computed tomographic images of the abdomen and pelvis were obtained after the administrati on of 100 cc of Omnipaque 350 intravenous contrast. The dose-length product (DLP) was 348.05 mGy-cm. Automated exposure control and iterative reconstruction technique were employed. COMPARISON: 10/14/2020 FINDINGS: Minimal dependent atelectasis is present in the lung bases. The heart size is normal. There is calcified coronary artery atherosclerosis. Cysts of the liver measure up to 1.7 cm in the left he patic lobe. The spleen, pancreas, gallbladder, and adrenal glands are normal. The kidneys are unremar kable. No pathologically enlarged abdominal or pelvic lymph nodes are identified. There is no free in traperitoneal gas or evidence of bowel obstruction. There is a questionable mass of the cecum. There are bilateral L5 pars defects with grade 1 anterolisthesis of L5 on S1. A TURP defect is noted in the central prostate. IMPRESSION: 1. No evidence of metastatic disease. Reviewed, dictated and finalized at location A.
== END 2021-10-23 10:00 | disposition home or self-care (01) ==
LOC: ANHIMG 10:05
PROVIDERS: Visit Provider Urology
DX: C61 Malignant neoplasm of prostate (principal)
CPT/HCPCS: 74177; 78306; A9561; Q9967

== ENCOUNTER 2021-11-17 01:05 | Day surgery (SDC) | payer MEDICARE, SELFPAY ==
[2021-11-13 08:57] VITALS: BMI 28.3
--- NOTE | 2021-11-16 14:07 | WPDANESEPPF ---
Anes - Initial Pre Proc Eval Procedure: Operation Date: 11/17/21 10:30 Proposed Procedures p Colonoscopy - Chung Mcgovern MD Date/Time: 11/16/21 14:07 Surgeon: Chung Mcgovern MD Pre Op Diagnosis: Abnormal CAT scan Patient Data Age: 81 Gender: M Height: 1.7 m Weight: 81.9 kg Allergies Allergy/AdvReac Type Severity Reaction Status Date / Time No Known Allergies Allergy Verified 11/17/21 09:11 Home Medications Medication Instructions Recorded Confirmed Type aspirin 81 mg tablet,delayed 81 mg PO DAILY 04/19/19 11/13/21 History release rosuvastatin 10 mg tablet 10 mg PO DAILY 10/15/20 11/13/21 History carbidopa 25 mg-levodopa 100 mg See Rx Instructions .Route 06/17/21 11/17/21 Rx tablet .COMPLEX #1,080 tabs omeprazole 20 mg capsule,delayed See Rx Instructions .Route 06/17/21 11/13/21 Rx release .COMPLEX #90 caps ropinirole 1 mg tablet See Rx Instructions .Route 06/17/21 11/13/21 Rx .COMPLEX #540 tabs metoprolol succinate 25 mg See Rx Instructions .Route 09/15/21 11/17/21 Rx tablet,extended release 24 hr .COMPLEX #90 tabs docusate sodium 100 mg capsule 100 mg PO DAILY #30 caps 10/09/21 11/13/21 Rx (Colace) hydrocodone 5 mg-acetaminophen 325 1 - 2 tablet PO Q6H PRN pain #20 10/09/21 11/13/21 Rx mg tablet tabs sodium,potassium,mag sulfates 17.5 See Rx Instructions PO .COMPLEX 10/29/21 11/13/21 Rx gram-3.13 gram-1.6 gram oral soln #354 mL (Suprep Bowel Prep Kit) Patient hx anesthesia problems: none Family hx anesthesia problems: none Results Review: All pre-operative results and documents have been reviewed as part of the pre-operative evaluation. [facility] Past Medical History Medical History (Updated 11/17/21 @ 09:06 by Chung Mcgovern MD) Acute kidney injury superimposed on CKD CKD3 Hyperlipidemia Hypertension Overweight (BMI 25.0-29.9) Parkinsons disease Family History Family History Father Family history of cardiovascular disease Family history of elevated blood lipids Diabetes mellitus Suicide Mother Family history of malignant neoplasm of breast in first degree relative Other Hypertension Social History Social History Smoking packs per day: 3 Smoking cigarettes per day: 60.0 Years smoked: 11 Smoking pack-years: 33.00 Smoking status: Former smoker Tobacco type: cigarettes Second hand tobacco smoke exposure: No Alcohol intake: current Drinks per week: 2 Alcohol use details: rare use Substance use: never Substance use type: does not use Living arrangements: alone Additional living arrangements comments: son visits often; neighbor Torrey checks on him; patient has life alert Gender identity (if verbalized by the patient): Male Sexual Orientation (if Verbalized by the Patient): Straight or Heterosexual Spiritual care concerns: No Anes - Eval Final PreProcedure Day of Procedure 11/16/21 14:07 Patient weight: overweight Heart: regular rate and rhythm Lungs: clear to auscultation Airway: Mallampati scale class II Neurological: alert and oriented Last oral intake: >/= 8 hours ASA classification: III Emergent: no Anesthetic plan: proceed Anesthesia type and monitoring: general GIVS and standard monitoring Results Review: All pre-operative results and documents have been reviewed as part of the pre-operative evaluation. Informed Consent: The patient's anesthetic plan and its attendant risks and benefits were discussed with the patient/family/POA. Questions were solicited and answers provided to the satisfaction of the patient/family/POA.
--- NOTE | 2021-11-17 09:04 | PM.IMHP ---
H&P: HPI History of Present Illness Date/Time: 11/17/21 09:04 Chief Complaint: Abnormal CT scan. Narrative: This is an 81-year-old white male patient with prostate carcinoma. Currently followed by urology service. He has some difficulty with continence. Recent CT scan was performed with no evidence of metastatic cancer but there was a concern of a mass in the cecum. For this reason patient referred for colonoscopy. Patient states he tends towards constipation. He has had no bleeding. His weight is declined to a small degree. His family history is noncontributory. Neoplasia screening colonoscopy advised at this time. Review of Systems Review of Systems: Review of systems is noncontributory. [facility] Past Medical History Medical History (Updated 11/17/21 @ 09:06 by Chung Mcgovern MD) Acute kidney injury superimposed on CKD CKD3 Hyperlipidemia Hypertension Overweight (BMI 25.0-29.9) Parkinsons disease Family History Family History Father Family history of cardiovascular disease Family history of elevated blood lipids Diabetes mellitus Suicide Mother Family history of malignant neoplasm of breast in first degree relative Other Hypertension Social History Social History Smoking packs per day: 3 Smoking cigarettes per day: 60.0 Years smoked: 11 Smoking pack-years: 33.00 Smoking status: Former smoker Tobacco type: cigarettes Second hand tobacco smoke exposure: No Alcohol intake: current Drinks per week: 2 Alcohol use details: rare use Substance use: never Substance use type: does not use Living arrangements: alone Additional living arrangements comments: son visits often; neighbor Torrey checks on him; patient has life alert Gender identity (if verbalized by the patient): Male Sexual Orientation (if Verbalized by the Patient): Straight or Heterosexual Spiritual care concerns: No Meds Home Medications and Allergies Home Medications Medication Instructions Recorded Confirmed Type aspirin 81 mg tablet,delayed 81 mg PO DAILY 04/19/19 11/13/21 History release rosuvastatin 10 mg tablet 10 mg PO DAILY 10/15/20 11/13/21 History carbidopa 25 mg-levodopa 100 mg See Rx Instructions .Route 06/17/21 11/13/21 Rx tablet .COMPLEX #1,080 tabs omeprazole 20 mg capsule,delayed See Rx Instructions .Route 06/17/21 11/13/21 Rx release .COMPLEX #90 caps ropinirole 1 mg tablet See Rx Instructions .Route 06/17/21 11/13/21 Rx .COMPLEX #540 tabs metoprolol succinate 25 mg See Rx Instructions .Route 09/15/21 11/13/21 Rx tablet,extended release 24 hr .COMPLEX #90 tabs docusate sodium 100 mg capsule 100 mg PO DAILY #30 caps 10/09/21 11/13/21 Rx (Colace) hydrocodone 5 mg-acetaminophen 325 1 - 2 tablet PO Q6H PRN pain #20 10/09/21 11/13/21 Rx mg tablet tabs sodium,potassium,mag sulfates 17.5 See Rx Instructions PO .COMPLEX 10/29/21 11/13/21 Rx gram-3.13 gram-1.6 gram oral soln #354 mL (Suprep Bowel Prep Kit) Allergies Allergy/AdvReac Type Severity Reaction Status Date / Time No Known Allergies Allergy Verified 11/13/21 09:08 Exam Narrative: Physical exam reveals patient to be alert. Patient use a walker to ambulate. Vital signs stable. HEENT exam is unremarkable. Patient is anicteric. Lungs are clear to auscultation and percussion. Heart is without murmur or extra sounds. Abdomen bowel sounds present soft nontender with no organomegaly. Digital rectal exam normal. Assessment and Plan Assessment and plan (1) Abnormal CT scan: Code(s): R93.89 - Abnormal findings on diagnostic imaging of other specified body structures Status: Acute Assessment and Plan: Patient has a CT scan performed for screening of prostate cancer. Found to have an abnormality in the cecum of the colon. Patient presents today for scre
[2021-11-17 09:12] VITALS: BP 126/93; PULSE 92; RESP 18; TEMP 36.6; O2SAT 99
[2021-11-17] MEDS: LACTATED RINGERS 1,000 ML 150 ML IV CONT (09:22)
[2021-11-17 10:09] VITALS: BP 102/64; PULSE 62; RESP 22; O2SAT 100
[2021-11-17 10:19] VITALS: BP 124/81; PULSE 63; RESP 20; O2SAT 100
[2021-11-17 10:29] VITALS: BP 137/86; PULSE 61; RESP 17; O2SAT 99
== END 2021-11-17 10:51 | disposition home or self-care (01) ==
PROVIDERS: Visit Provider Internal Medicine Gastroenterology
PROC: 0DJD8ZZ Inspection of Lower Intestinal Tract, Via Natural or Artificial Opening Endoscopic (ICD-10-PCS; CPT 45378; principal; 2021-11-17 10:30)
DX: D12.2 Benign neoplasm of ascending colon (principal); K64.8 Other hemorrhoids; K57.30 Diverticulosis of large intestine without perforation or abscess without bleeding; C61 Malignant neoplasm of prostate; I12.9 Hypertensive chronic kidney disease with stage 1 through stage 4 chronic kidney disease, or unspecified chronic kidney disease; N18.30 Chronic kidney disease, stage 3 unspecified; I10 Essential (primary) hypertension; E78.5 Hyperlipidemia, unspecified; G20 Parkinson's disease; Z87.891 Personal history of nicotine dependence; Z79.82 Long term (current) use of aspirin
CPT/HCPCS: 45385; 88305; J2001; J2704; J7120

== ENCOUNTER 2021-12-29 19:02 | Inpatient (IN) | payer MEDICARE, SELFPAY ==
[2021-12-29] VITALS (9 sets, daily range): BP systolic 150–179; BP diastolic 87–98; PULSE 61–78; RESP 14–23; TEMP 35.9–36.4; O2SAT 96–100; BMI 27.5
--- NOTE | ~2021-12-29 | XR_ITS ---
XR abdomen/kub 1V DATE: 01/09/2022 06:26 INDICATION: Small bowel obstruction TECHNIQUE: Portable supine AP view on 01/09/2022 at 0456 hours COMPARISON: 01/2022 small bowel follow-through FINDINGS: Lucius overlie the right lower abdomen. There is residual contrast material within the distal small bowel, colon and rectum. Mildly dilated g as distended proximal small bowel is noted. There is an NG tube barely extending into the gastric fundus. Degenerative spurring and levoscoliosis of the lower thoracic and lumbar spine. IMPRESSION: Postoperative abdomen NG tube barely extends into the gastric fundus. Advancement is recommended. Reviewed, dictated and finalized at [facility]. Reviewed, dictated and finalized at location A.
--- NOTE | ~2021-12-29 | XR_ITS ---
XR abdomen NG/feed tube rechec INDICATION: Evaluate NG tube position. TECHNIQUE: Limited KUB perform for evaluating NG tube . COMPARISON: 12/31/2021 FINDINGS: NG tube tip in the stomach. Visualized bowel gas pattern is unremarkable.There is free air in the right upper abdomen consistent with recent surgery. Small amount of contrast in nondilated co kendra. There is moderate gas throughout the small bowel. IMPRESSION: 1: NG tube tip in the stomach. Reviewed, dictated and finalized at location B.
--- NOTE | ~2021-12-29 | XR_ITS ---
EXAMINATION: XR abdomen/kub 1V DATE: 01/08/2022 05:55 INDICATION: Adynamic ileus. TECHNIQUE: A supine view of the abdomen on 2 radiographs was obtained. COMPARISON: Abdomen radiographs 01/07/2022, CT abdomen and pelvis 01/04/2022 FINDINGS: There is mildly dilated small bowel. The colon is normal in caliber. Skin montse are noted . The nasogastric tube tip is in the stomach. There is free intraperitoneal gas, consistent with rece nt surgery. IMPRESSION: 1. Mildly dilated small bowel, likely adynamic ileus. Reviewed, dictated and finalized at location A.
--- NOTE | ~2021-12-29 | XR_ITS ---
XR abdomen NG/feed tube insert DATE: 12/29/2021 22:07 INDICATION: NG tube placement TECHNIQUE: Portable supine AP view of the upper abdomen COMPARISON: None FINDINGS: A nasogastric tube is noted in the stomach, the proximal side-port 6 mL distal to the diaph ragmatic hiatus. Prominent fecal material in the right colon. No bowel obstruction is evident. IMPRESSION: NG tube in body of stomach Reviewed, dictated and finalized at [facility]. Reviewed, dictated and finalized at location A. IMPRESSION: NG tube in body of stomach
--- NOTE | ~2021-12-29 | XR_ITS ---
EXAMINATION: XR abdomen/kub 1V DATE: 01/06/2022 05:46 INDICATION: Adynamic ileus. TECHNIQUE: A supine view of the abdomen on 2 radiographs was obtained. COMPARISON: Small bowel follow-through 01/05/2022 FINDINGS: There are dilated loops of small bowel. There is oral contrast in the small bowel and colon . The nasogastric tube tip is in the stomach. Skin montse are noted. IMPRESSION: 1. Dilated small bowel, consistent with adynamic ileus. Reviewed, dictated and finalized at location A.
--- NOTE | ~2021-12-29 | CT_ITS ---
EXAMINATION: CT abdomen pelvis w con DATE: 12/29/2021 19:56 INDICATION: Right-sided abdominal pain TECHNIQUE: Computed tomography (CT) of the abdomen and pelvis was performed with 100 CC Omnipaque 350 intravenous contrast. Automated exposure control and iterative reconstruction technique were employe d. Exam dose: 490.09 mGy-cm total exam DLP. COMPARISON: 10/23/2021 CT abdomen pelvis FINDINGS: Minimal right lower lobe dependent atelectasis. Normal heart size. Coronary artery calcific ations. No pericardial or pleural effusion. Scattered multiple left and right hepatic cysts, measuring up to approximately 1.9 cm dimension. The gallbladder is present. No bile duct dilatation. Normal splenic size. No pancreatic mass lesion, calc ification or ductal dilatation. Normal morphology of the adrenal glands. There is atherosclerotic calcification and normal caliber of the abdominal aorta, iliac arteries. No abdominal aortic aneurysm. No intraperitoneal or retroperitoneal or pelvic mass lesion or adenopathy is noted. There is prostate enlargement with suggestion of TURP. Mild diffuse bladder wall thickening likely se condary to the prostate enlargement. There is diverticulosis of the colon; no CT evidence of diverticulitis. There is fluid distention of small bowel in the right mid and lower abdomen, measuring up to approxim ately 2.1 cm diameter, with a transition zone noted in the right lower quadrant (series 3 images 110- 114 of distal small bowel is decompressed. No renal mass lesion or urinary tract calculus or hydroureteronephrosis. 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 Diffuse idiopathic skeletal hyperostosis of the thoracic spine. Degenerative disc disease of the lumb ar spine, particularly at L5-S1. No suspicious osteolytic or osteoblastic lesions. Bilateral hip osteoarthritis. IMPRESSION: Right lower quadrant partial small bowel obstruction, with mild ascites in the right abd omen and dependent pelvis Hepatic cysts Diverticulosis of the colon Prostate enlargement, probable TURP Reviewed, dictated and finalized at Location [facility]. Reviewed, dictated and finalized at location A. IMPRESSION: Right lower quadrant partial small bowel obstruction, with mild as cites in the right abdomen and dependent pelvis Hepatic cysts Diverticulosis of the colon Prostate enlargement, probable TURP
--- NOTE | ~2021-12-29 | XR_ITS ---
EXAMINATION: XR sm bowel follow through WS DATE: 01/05/2022 13:03 INDICATION: Adynamic ileus. TECHNIQUE: Oral contrast was administered, and a time course of radiographs of the abdomen was obtain ed. Fluoroscopy of the small bowel was not performed. Fluoroscopy exposure time was 0 minutes. The to milan number of images was 9. COMPARISON: CT abdomen and pelvis 01/04/2022 FINDINGS: The nasogastric tube tip is in the stomach. There are multiple dilated loops of small bowel. There is free intraperitoneal gas, consistent with recent surgery. Skin montse are noted. There is contrast in the colon at the start of the exam. After four hours, almost all of the contrast is still in the s tomach. IMPRESSION: 1. Almost all of the contrast remains in the stomach after 4 hours. 2. Dilated small bowel, likely adynamic ileus. Reviewed, dictated and finalized at location A.
--- NOTE | ~2021-12-29 | XR_ITS ---
XR chest 1V portable 01/07/2022 11:40 Indication: Increased white blood cell count. Possible aspiration. Procedure: AP portable chest Comparison: Comparison to multiple prior studies sequentially, with oldest reviewed study dated 10/14. Findings: Heart size normal. PICC line tip in the SVC. NG tube tip not visualized. No focal air space disease, pulmonary edema, pleural effusion or suspected pneumothorax. Impression: 1: No acute cardiopulmonary disease. Reviewed, dictated and finalized at location A. Impression: 1: No acute cardiopulmonary disease.
--- NOTE | ~2021-12-29 | XR_ITS ---
EXAMINATION: XR chest 1V portable DATE: 01/08/2022 13:04 INDICATION: Cough. TECHNIQUE: A single frontal view of the chest was obtained. COMPARISON: Chest single view 01/07/2022, CT abdomen and pelvis 01/04/2022 FINDINGS: The chest demonstrates clear lungs without pneumonia, pleural effusion, or pneumothorax. Th e heart size is normal. The nasogastric tube tip is beyond the inferior margin of the radiograph, but at least to the stomach. A right upper extremity peripherally inserted central venous catheter (PICC ) is seen with tip in the superior vena cava. IMPRESSION: 1. No acute cardiopulmonary disease. Reviewed, dictated and finalized at location A.
--- NOTE | ~2021-12-29 | XR_ITS ---
MODIFIED ESOPHAGRAM HISTORY: Dysphagia with failed prior modified swallow study. TECHNIQUE: Modified barium esophagram was performed on 01/12/22. I administered fluoroscopy and perfor med the exam with speech pathologist. Patient was seated for lateral fluoroscopic imaging for ingest ion of thin liquids, pudding, solids and quantified amounts, followed by thin liquids in uncontrolled amounts. This was recorded on tape. A single fluoroscopic spot image was also recorded. The DAP for this procedure was 1.2 Gycm2. The amount of fluoroscopy time used during this procedure was 1.8 minut es. FINDINGS: Oral stage: Adequate function. Pharyngeal stage: Pharyngeal dysphagia with reduced laryngeal elevation, abduction, tongue base retra ction and pharyngeal squeeze. This results in increased pharyngeal wall, piriform sinus and particula rly vallecular residue. There is subsequent laryngeal penetration and silent aspiration of a small am ount of contrast. Cervical/esophageal stage: Adequate function. IMPRESSION: Residual dysphagia with laryngeal penetration and silent aspiration. Please correlate [facility] speech pathologist findings and specific feeding recommendations. Reviewed, dictated and finalized at location A. SALTER IMPRESSION: Residual dysphagia with laryngeal penetration and silent aspiration . Please correlate with speech pathologist findings and specific feeding recom mendations.
--- NOTE | ~2021-12-29 | XR_ITS ---
EXAMINATION: XR sm bowel follow through WS DATE: 12/30/2021 13:39 INDICATION: Small bowel obstruction. TECHNIQUE: Oral contrast was administered, and a time course of radiographs of the abdomen was obtain ed. Fluoroscopy of the small bowel was not performed. Fluoroscopy exposure time was 0 minutes. The to milan number of images was 7. COMPARISON: CT abdomen and pelvis 12/29/2021 FINDINGS: The nasogastric tube tip is in the stomach. At 2 hours, almost all of the contrast is still in the st omach. There is faint contrast in normal caliber proximal small bowel. There is contrast in the bladd er. IMPRESSION: 1. Slow transit of contrast with almost all of the contrast in the stomach at 2 hours. The exam was t erminated because the patient was going to surgery. Reviewed, dictated and finalized at location A. IMPRESSION: 1. Slow transit of contrast with almost all of the contrast in the stomach at 2 hours. The exam was terminated because the patient was going to surgery.
--- NOTE | ~2021-12-29 | XR_ITS ---
EXAMINATION: XR abdomen NG/feed tube insert DATE: 12/31/2021 06:22 INDICATION: Nasogastric tube placement TECHNIQUE: A supine view of the abdomen and lower chest was obtained for evaluation of feeding tube placement. COMPARISON: 12/30/2021 FINDINGS: Nasogastric tube tip in proximal side port in the body of the stomach. There is free intraperitoneal gas below the right hemidiaphragm consistent with intervening surgery. No dilated loops of gas-filled bowel in the visualized abdomen. Mild left basilar atelectasis. Heart size is normal. Likely ectatic if not aneurysmal ascending thoracic aorta. IMPRESSION: 1. Nasogastric tube in the stomach. Reviewed, dictated and finalized at location A.
--- NOTE | ~2021-12-29 | XR_ITS ---
EXAM: XR abdomen/kub 1V DATE: 01/09/2022 09:24 HISTORY: advanced NG tube . COMPARISON: Same date at 4:56 AM. FINDINGS: Clear lung bases. NG tube advanced, tip and side port now project over the stomach. Normal bowel gas pattern. No organomegaly. No abnormal abdominal calcification. Degenerative changes in the spine. IMPRESSION: Appropriately positioned NG tube. Reviewed, dictated and finalized at location K.
--- NOTE | ~2021-12-29 | XR_ITS ---
XR chest PICC line DATE: 01/04/2022 15:24 INDICATION: PICC line insertion TECHNIQUE: Portable upright AP chest on 01/04/2022 at 1517 hours COMPARISON: 10/14/2020 portable supine AP chest FINDINGS: There is interval placement of a right upper extremity PIC catheter, tip overlying the supe rior vena cava at T5 level. NG tube in stomach, the proximal side-port approximately 4 cm distal to the diaphragmatic hiatus. Normal heart size. Is aortic unfolding. No hilar or mediastinal enlargement. No pulmonary infiltrate or consolidation, pleural effusion or pulmonary vascular congestion or pneumo thorax is noted. There is mild free air beneath the diaphragm, noted on 01/04/2022 CT abdomen pelvis and attributed to recent bowel surgery. IMPRESSION: Right upper extremity PIC catheter tip overlying superior vena cava NG tube in upper stomach Reviewed, dictated and finalized at Location A. Reviewed, dictated and finalized at location A.
--- NOTE | ~2021-12-29 | XR_ITS ---
EXAMINATION: XR abdomen/kub 1V DATE: 01/11/2022 06:01 INDICATION: Small bowel obstruction. TECHNIQUE: A supine view of the abdomen on 2 radiographs was obtained. COMPARISON: Abdomen radiograph 01/10/2022 FINDINGS: There are no dilated loops of bowel. There is a paucity of stool in the colon. Skin montse are noted. The nasogastric tube tip is in the distal stomach. Calcifications in the pelvis are likel y phleboliths. IMPRESSION: 1. Nonobstructive bowel gas pattern. Reviewed, dictated and finalized at location A. MBLER SEAT
--- NOTE | ~2021-12-29 | XR_ITS ---
XR abdomen/kub 1V DATE: 01/10/2022 06:49 INDICATION: Small bowel obstruction TECHNIQUE: Portable supine AP views on 01/10/2022 0545 hours COMPARISON: 01/09/2022 portable AP view at 0919 hours 01/09/2022 portable supine AP view at 0456 hours FINDINGS: There is a nasogastric tube, the tip overlying the gastric antrum approximately. There are surgical montse left of midline in the lower abdomen. There are scattered gas distended small bowel segments, likely due to postoperative adynamic ileus; n o bowel obstruction or intraperitoneal free air is evident. IMPRESSION: Probable mild postoperative adynamic ileus NG tube in stomach Reviewed, dictated and finalized at Location A. Reviewed, dictated and finalized at location A. EL PLANT OPERATOR
--- NOTE | ~2021-12-29 | XR_ITS ---
EXAMINATION: XR sm bowel follow through DATE: 01/08/2022 11:24 INDICATION: Adynamic ileus. TECHNIQUE: Oral contrast was administered, and a time course of radiographs of the abdomen was obtain ed. Fluoroscopy of the small bowel was not performed. Fluoroscopy exposure time was 0 minutes. The to milan number of images was 7. COMPARISON: CT abdomen and pelvis 01/04/2022 FINDINGS: The nasogastric tube tip is in the stomach. There are multiple dilated loops of proximal small bowel. Transit time from the stomach to proximal colon was approximately 2 hours. Skin montse are noted. IMPRESSION: 1. Dilated small bowel with normal transit time to the colon, consistent with adynamic ileus. Reviewed, dictated and finalized at location A. IMPRESSION: 1. Dilated small bowel with normal transit time to the colon, consistent with a dynamic ileus.
--- NOTE | ~2021-12-29 | XR_ITS ---
EXAM: XR abdomen/kub 1V DATE: 01/03/2022 15:27 HISTORY: nausea/vomiting . COMPARISON: Barium swallow 01/03/2022, x-ray abdomen 12/31/2021, small bowel follow-through 12/31/19 22, CT abdomen and pelvis 12/29/2021. FINDINGS: Clear lung bases. Midline lower abdominal skin montse. Flecks of intraluminal retained co ntrast from prior swallowing study. Multiple loops of dilated small bowel in the right upper abdomen. Decreased volume of intraperitoneal air. IMPRESSION: Small bowel ileus versus obstruction. Postoperative ileus is favored. Reviewed, dictated and finalized at location K. IMPRESSION: Small bowel ileus versus obstruction. Postoperative ileus is favore d.
--- NOTE | ~2021-12-29 | XR_ITS ---
EXAMINATION: XR abdomen NG/feed tube insert DATE: 01/04/2022 11:16 INDICATION: Nasogastric tube insertion TECHNIQUE: A supine view of the abdomen and lower chest was obtained for evaluation of feeding tube placement. COMPARISON: 01/03/2022 FINDINGS: Nasogastric tube tip and proximal side-port in the body of the stomach. Again seen are multiple mildl y dilated gas-filled loops of small bowel in the right upper quadrant. There also appears to be diste ntion of the chest and fluid-filled stomach. There is some free intraperitoneal gas below the right h emidiaphragm. Retained oral contrast material in the visualized colon. Lung bases are clear. Heart si ze is normal. Mild lumbar levoscoliosis with mild spondylosis. IMPRESSION: 1. Nasogastric tube in expected position with distal tip in proximal side port projecting over the jasper dy of what appears be a distended stomach. 2. New free intraperitoneal gas concerning for bowel perforation. Findings were discussed with Elmer Douglass, the nurse caring for the patient, at 11:20 AM. 3. Persistent dilated loops of small bowel in the right abdomen concerning for small bowel obstructio n. Reviewed, dictated and finalized at location B. IMPRESSION: 1. Nasogastric tube in expected position with distal tip in proximal side port projecting over the body of what appears be a distended stomach. 2. New free intraperitoneal gas concerning for bowel perforation. Findings were discussed with Edwige Douglass, the nurse caring for the patient, at 11:20 AM. 3. Persistent dilated loops of small bowel in the right abdomen concerning for small bowel obstruction.
--- NOTE | ~2021-12-29 | XR_ITS ---
MODIFIED ESOPHAGRAM HISTORY: Dysphagia. TECHNIQUE: Modified barium esophagram was performed by speech pathologist under radiologist fluorosco pic guidance. This was recorded on tape. The exam was reviewed on 01/03/2022 10:52 CDT. The DAP fo r this procedure was 0.7 Gycm2. Fluoroscopy time is 1.1 minutes. FINDINGS: Lateral projection of the cervical spine demonstrates normal alignment. During pharyngeal stage of swallowing there is reduced laryngeal elevation, laryngeal adduction, tongue base retractio n and pharyngeal squeeze. There is vallecular residue. Patient is at high risk for aspiration due to inability to initiate swallowing with command. IMPRESSION: 1: Abnormal pharyngeal stage of swallowing with high risk of aspiration. 2: Please refer to speech pathologist report for additional detail. Reviewed, dictated and finalized at location A.
--- NOTE | ~2021-12-29 | XR_ITS ---
EXAMINATION: XR abdomen/kub 1V DATE: 01/07/2022 06:19 INDICATION: Adynamic ileus. TECHNIQUE: A supine view of the abdomen on 2 radiographs was obtained. COMPARISON: Abdomen radiographs 01/06/2022 FINDINGS: There are dilated loops of small bowel. There is oral contrast in the colon, which is thais l in caliber. The nasogastric tube tip is in the stomach. There is free intraperitoneal gas, consiste nt with recent surgery. Skin montse are noted. IMPRESSION: 1. Persistently dilated small bowel, likely adynamic ileus. Reviewed, dictated and finalized at location A.
--- NOTE | ~2021-12-29 | CT_ITS ---
EXAMINATION: CT abdomen pelvis wo con DATE: 01/04/2022 13:27 INDICATION: Possible bowel perforation with free air on KUB. TECHNIQUE: Computed tomography (CT) of the abdomen and pelvis was performed without intravenous contr ast. Automated exposure control and iterative reconstruction technique were employed. The dose-length product was 323.58 mGy-cm. COMPARISON: 12/29/2021 FINDINGS: Small bilateral pleural effusions with atelectasis at the basilar and dependent lower lobes, right gr eater than left. Heart size is normal. Atherosclerotic coronary artery calcific location. No pericard ial effusion. Nasogastric tube tip in the body of the stomach. Liver, gallbladder, pancreas, spleen, bilateral adrenal glands and kidneys are normal. Vicariously excreted contrast layering in the depend ent aspect of the gallbladder. Residual oral contrast material throughout much of the colon. Postoper ative changes consistent with recent resection of a segment of small bowel with anastomotic suture li ne in the right lower quadrant and multiple midline skin montse. There is some free intraperitoneal gas in the nondependent abdomen which is likely related to the recent surgery. There is persistent fl uid distending multiple loops of small bowel which are not frankly dilated and would favor a persiste nt postoperative ileus or obstruction. Status post transurethral prostatectomy. Bladder is unremarkab le. Small amount of free fluid in the deep pelvis. No pathologically enlarged abdominal or pelvic lym phadenopathy. 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 Mild lumbar levocurvature with moderate spondylosis. IMPRESSION: 1. Free intraperitoneal gas likely related to recent bowel surgery. 2. Multiple gas-filled but not frankly dilated small bowel and favor postoperative ileus over obstruc tion. 3. Small bilateral pleural effusions. Reviewed, dictated and finalized at location B. IMPRESSION: 1. Free intraperitoneal gas likely related to recent bowel surgery. 2. Multiple gas-filled but not frankly dilated small bowel and favor postoperat charline ileus over obstruction. 3. Small bilateral pleural effusions.
--- NOTE | ~2021-12-29 | XR_ITS ---
EXAM: XR abdomen/kub 1V DATE: 01/09/2022 10:04 HISTORY: ng tube advanced. . COMPARISON: Same date at 9:19 AM. FINDINGS/IMPRESSION: NG tube has been advanced further, tip at the pylorus and side port in the antru m. No other interval change. Reviewed, dictated and finalized at location K.
--- NOTE | 2021-12-29 19:19 | ED.GENADULT ---
HPI - General Adult General Chief complaint: Abdominal Pain Stated complaint: LUQ ABD PAIN x 3 HOURS; N/V x 1 Time Seen by Provider: 12/29/21 19:10 History of Present Illness HPI narrative: Patient is 81-year-old gentleman who presents emergency department with chief complaint of abdominal pain. Patient reports that he has history of Parkinson's and reports that today he started having discomfort on the right side of his abdomen. Patient reports he has history of prostate cancer as well and reports that has not had a bowel movement in several days. Patient states the pain is aching-like pain reports that he has had some nausea and vomiting as well patient reports no fever reports the pain is not improved by anything. Related Data Home Medications Medication Instructions Recorded Confirmed aspirin 81 mg tablet,delayed 81 mg PO DAILY 04/19/19 11/13/21 release rosuvastatin 10 mg tablet 10 mg PO DAILY 10/15/20 11/13/21 Allergies Allergy/AdvReac Type Severity Reaction Status Date / Time No Known Allergies Allergy Verified 12/29/21 15:36 Review of Systems Review of Systems: A 10 system review of systems was completed on the patient and is negative except for what is stated in the HPI. Nursing and ancillary documentation was reviewed. [facility] Past Medical History Medical History Acute kidney injury superimposed on CKD CKD3 Hyperlipidemia Hypertension Overweight (BMI 25.0-29.9) Parkinsons disease Family History Family History Father Family history of cardiovascular disease Family history of elevated blood lipids Diabetes mellitus Suicide Mother Family history of malignant neoplasm of breast in first degree relative Other Hypertension Social History Social History Smoking packs per day: 3 Smoking cigarettes per day: 60.0 Years smoked: 11 Smoking pack-years: 33.00 Smoking status: Former smoker Tobacco type: cigarettes Second hand tobacco smoke exposure: No Alcohol intake: current Drinks per week: 2 Alcohol use details: rare use Substance use: never Substance use type: does not use Additional living arrangements comments: son visits often; neighbor Torrey checks on him; patient has life alert Gender identity (if verbalized by the patient): Male Sexual Orientation (if Verbalized by the Patient): Straight or Heterosexual Spiritual care concerns: No Has the Lack of Transportation Kept You From Medical Appointments or From Getting Medications?: No Within the Past 12 Months, Were You Worried Whether Your Food Would Run Out Before You Got Money to Buy More?: Never True What is Your Housing Situation Today?: I Have Housing Are You Worried That in the Next 2 Months, You May Not Have Your Own Housing to Live In?: No Do You Have Trouble Paying Your Heating Or Electricity Bill?: No Do You Have Trouble Paying For Medicines?: No Are You Currently Unemployed and Looking for Work?: No Highest Level of Education Completed: High School Diploma/GED Do You Have Trouble With Childcare or the Care of a Family Member?: No Exam Narrative: GENERAL: Well-appearing, well-nourished, and in no acute distress. HEAD: Normocephalic, atraumatic. EYES: PERRLA and EOMI. ENT: Nares clear, no rhinorrhea or epistaxis. Mucous membranes moist. NECK: Supple. CHEST: Clear to auscultation. No respiratory distress. HEART: Regular rate and rhythm. No murmur heard. Normal peripheral pulses. ABDOMEN: Soft, narrow tender to palpation in the right upper and right lower quadrant, nondistended, normal active bowel sounds. EXTREMITIES: Normal range of motion. No edema. SKIN: Warm, dry, no rash. NEURO: No focal deficits. Alert and oriented x3. PSYCH: Normal mood and affect. Course Vital Signs Vital signs: Vit
[2021-12-29 19:23] LABS: Basophils Absolute Auto 0.1 K/mm3 (0.0-0.1); Basophils Percent Auto 0.5 % (0.2-1.2); Eosinophils Percent Auto 0.2 % (0-4.4); Hematocrit 41.9 % (42.0-52.0); Immature Granulocyte Absolute 0.05 K/mm3 (0.00-0.031); Immature Granulocyte Percent A 0.4 % (0-0.5); Lymphocytes Absolute Auto 0.79 K/mm3 (0.9-3.2); Lymphocytes Percent Auto 6.2 % (18.3-44.2); Mean Corpuscular HGB Conc 33.4 g/dl (32-36); Mean Corpuscular Hemoglobin 30.5 pg (26-34); Mean Corpuscular Volume 91.3 fl (80-100); Mean Platelet Volume 9.8 fl (7.4-10.4); Monocytes Absolute Auto 0.5 K/mm3 (0.1-0.6); Monocytes Percent Auto 4.3 % (2.6-8.5); Neutrophils Absolute Auto 11.2 K/mm3 (1.3-6.7); Neutrophils Percent Auto 88.4 % (45.5-73.1); Platelet Count Result 275 k/mm3 (150-375); Red Blood Count 4.59 M/mm3 (4.6-6.20); Red Cell Distribution Width 13.4 % (11.5-14.5); White Blood Count 12.7 K/mm3 (4.5-10.0)
[2021-12-29] MEDS: SODIUM CHLORIDE 0.9% IV 1,000 ML 999 ML IV CONT (19:23)
[2021-12-29] MEDS: ONDANSETRON INJ 4 MG/2 ML VIAL IV PUSH (19:24)
[2021-12-29 19:33] LABS: Alanine Aminotransferase 24 U/L (6-50); Albumin Level 4.6 g/dL (3.5-5.1); Alkaline Phosphatase 80 U/L (38-126); Anion Gap 12 mmol/L (8-16); Aspartate Amino Transferase 36 U/L (17-59); Bilirubin,Total 0.6 mg/dL (0.2-1.3); Blood Urea Nitrogen 24 mg/dL (9-20); Calcium 9.5 mg/dL (8.4-10.2); Carbon Dioxide 29 mmol/L (22-30); Chloride 98 mmol/L (98-107); Estimated CRCL calculation 40 ml/min; Estimated Glomerular Filt Rate 58; Glucose 150 mg/dL (65-110); Lipase 76 U/L (23-300); Potassium 4.1 mmol/L (3.4-5.0); Sodium 139 mmol/L (137-145)
[2021-12-29 19:46] LABS: Lactic Acid Reflex 1.5 mmol/L (0.7-2.0)
[2021-12-29] MEDS: MORPHINE SULFATE (*CRX) 4 MG/ML INJ IV PUSH (20:56)
[2021-12-29 21:10] LABS: Add Urine Microscopic? YES; Appearance Urine Clear (Clear); Bilirubin Urine Negative (Negative); Blood Urine Negative (Negative); Color Urine Yellow (Yellow); Glucose Urine UA Negative (Negative); Ketones Urine 1+ mg/dL (Negative); Leukocyte Esterase Ur Negative LEU/UL (Negative); Mucus Urine Rare /lpf; Nitrate Urine Negative (Negative); Protein Urine 1+ mg/dL (Negative); Squamous Epithelial Cell Urine Rare /hpf (Few); Urobilinogen Urine Negative mg/dL (<2.0); WBC Urine 16-20 /hpf
--- NOTE | 2021-12-29 21:10 | PM.IMHP ---
H&P: HPI History of Present Illness Date/Time: 12/29/21 21:10 Chief Complaint: abdominal pain Narrative: This is an 81-year-old male with past medical history significant for Parkinson's disease, dyslipidemia, chronic kidney disease, patient presents to the emergency room with complaints of abdominal pain constipation for over a week with some nausea and vomiting. preliminary workup was significant for a urinalysis showed 10-20 wbc's per high-power field, a CT of abdomen and pelvis was reported as: IMPRESSION:? Interval removal of cholecystostomy catheter since 12/07/2021 Cardiomegaly, small pericardial effusion Extensive coronary and abdominal aorta and iliac calcified atherosclerosis Resolution of right and diminished left pleural effusion since 12/07/2021 Bilateral dependent lower lobe atelectasis, left greater than right Large bladder stones Bilateral fat-containing inguinal hernias Review of Systems Review of Systems: abdominal pain, constipation, nausea, vomiting. Constitutional: Constitutional: Denies chills, Denies fever(s), Denies night sweats and Reports poor appetite Eyes: Eyes: Denies change in vision ENT: Denies dysphagia, Denies vertigo, Denies dizziness and Denies odynophagia Cardiovascular: Cardiovascular: Denies chest pain, Denies pedal edema, Denies irregular heart rhythm, Denies leg edema, Denies lightheadedness, Denies palpitations and Denies dyspnea on exertion Respiratory: Respiratory: Denies chest congestion, Denies cough and Denies dyspnea Gastrointestinal: Gastrointestinal: Reports abdominal pain, Reports constipation, Denies dyspepsia, Denies heartburn, Reports nausea and Reports vomiting Genitourinary: Genitourinary: Denies dysuria Musculoskeletal: Musculoskeletal: Denies joint swelling Integumentary/Breasts: Skin/Breast: Denies rash Neurologic: Denies vertigo, Denies dizziness, Denies focal weakness and Denies Sensory deficit (Neuro) Psychiatric: Psychiatric: Reports no additional psychiatric complaints and Reports as per HPI Endocrine: Endocrine: Denies flushing, Denies heat intolerance, Denies polydipsia and Denies palpitations Hematologic/Lymphatic: Hematologic/Lymphatic: Reports no additional hematologic/lymphatic complaints and Reports as per HPI Allergic/Immunologic: Allergic/Immunologic: Reports no additional allergic/immunologic complaints and Reports as per HPI PMFSH Past Medical History Medical History Acute kidney injury superimposed on CKD CKD3 Hyperlipidemia Hypertension Overweight (BMI 25.0-29.9) Parkinsons disease Family History Family History Father Family history of cardiovascular disease Family history of elevated blood lipids Diabetes mellitus Suicide Mother Family history of malignant neoplasm of breast in first degree relative Other Hypertension Social History Social History Smoking packs per day: 3 Smoking cigarettes per day: 60.0 Years smoked: 11 Smoking pack-years: 33.00 Smoking status: Former smoker Tobacco type: cigars Second hand tobacco smoke exposure: No Alcohol intake: former Drinks per week: 2 Alcohol use details: rare use Substance use: former Substance use type: does not use Additional living arrangements comments: son visits often; neighbor Torrey checks on him; patient has life alert Gender identity (if verbalized by the patient): Male Sexual Orientation (if Verbalized by the Patient): Straight or Heterosexual Spiritual care concerns: No Has the Lack of Transportation Kept You From Medical Appointments or From Getting Medications?: No Within the Past 12 Months, Were You Worried Whether Your Food Would Run Out Before You Got Money to Buy More?: Never True What is Your Housing Situation Today?: I Have Housing Are
[2021-12-29 21:50] LABS: Specific Grav Ur 1.046 (1.001-1.035)
--- NOTE | 2021-12-29 22:17 | PC.NURSE ---
NG tube in correct location per Radiology report. Placed to low intermittent suction per order.
--- NOTE | 2021-12-29 23:10 | PC.NURSE ---
called both son no answer pt unable to clarify medication at this time.
[2021-12-29] MEDS: SODIUM CHLORIDE 0.9% IV 1,000 ML 125 ML IV CONT (23:23)
--- NOTE | 2021-12-29 23:34 | ADMGEN ---
This patient, Abdulaziz Goins, was admitted to 3 [facility] Surg Room 314-02 at 2250. Patient/family oriented to hospital policies and general routines including ID bracelet, bed and alarms, visiting hours, pain management, procedures, bathroom and other care routines, personal items, smoking policy, room service/diet, and visiting hours. Information on how to activate the Rapid Response Team has been discussed. Patient/Family are encouraged to report perceived risks to care and to ask questions if they do not understand what they are told or what they should do. Report received from Cece [facility]
[2021-12-30] VITALS (15 sets, daily range): BP systolic 132–178; BP diastolic 70–98; PULSE 55–95; RESP 12–20; TEMP 35.9–37.4; O2SAT 95–100
[2021-12-30] MEDS: ENOXAPARIN 40 MG/0.4 ML SYRINGE SUB-Q (08:39)
--- NOTE | 2021-12-30 10:43 | PM.CNGS ---
Assessment and Plan Assessment and plan (1) Partial obstruction of small intestine: Code(s): K56.600 - Partial intestinal obstruction, unspecified as to cause Status: Acute Assessment and Plan: CT scan showed a right lower quadrant partial small bowel obstruction with mild ascites in the right abdomen and dependent pelvis. There is also a large amount of stool throughout the colon. He has no previous abdominal surgeries and it is unclear why he would have a small bowel obstruction. Some of this could be related to his constipation. His abdomen is non-distended and he had some bowel sounds on exam. I discussed the case with Dr. Tamez and we will proceed with a Gastrografin small bowel follow through today to further evaluate the obstruction. Continue conservative treatment with NG tube decompression, bowel rest, IV fluids, and analgesics as needed. (2) Prostate CA: Code(s): C61 - Malignant neoplasm of prostate Status: Chronic Assessment and Plan: Diagnosed with a high risk prostate cancer in October of 2021.He has not received any pelvic radiation and has chose to continue with observation with Urology for now. (3) Parkinsons disease: Code(s): G20 - Parkinson's disease Status: Acute Assessment and Plan: Increases risks for surgery. (4) Hyperlipidemia: Code(s): E78.5 - Hyperlipidemia, unspecified Status: Acute Plan I have discussed the patient's case and plan of care with Dr. Tamez. Thank you for allowing us to see the patient in consultation and we will continue to follow along with you. History of Present Illness Consult details Consult date: 12/30/21 Reason for consult: other (Partial small-bowel obstruction) Requesting physician: Matthew Shah MD Narrative: This is an 81-year-old male with a history of Parkinson's and prostate cancer, who presented to the emergency department for evaluation of right-sided abdominal pain and vomiting. The patient is a poor historian and had some difficulties in providing history. Some additional history is obtained by review of electronic medical record. He reports poor appetite and not eating over the past few days. He recalls going to his neurologist appointment yesterday afternoon around 3:30pm for follow-up with his Parkinson's disease. He believes his abdominal pain started while he was at the neurologist's office. He reports this as right-sided abdominal pain with no radiating factors. He has never had this pain before in the past. He then vomited while in the office. He then went home, where he lives alone. He tried drinking a glass of milk and quickly vomited this back up. His abdominal pain became more severe and he had more episodes of vomiting, therefore he pressed his Life Alert button and was taken by EMS to the ER for evaluation. CT scan of the abdomen and pelvis showed a right lower quadrant partial small bowel obstruction with mild ascites in the right abdomen and dependent pelvis. Labs significant for a white blood cell count [id number]. Urinalysis with specific gravity of 1.046, 1+ protein, 1+ ketones, 6-10 rbc's, and 16-20 wbc's. He was admitted to the hospitalist. He has been started on IV Rocephin. Urine culture pending. An NG tube has been placed and he is NPO. Our service has been consulted for the partial small bowel obstruction. He is seen on the medical floor. He is still complaining of mid right abdominal pain. He denies flatus and reportedly his last BM was about 3-4 days ago. He also endorses dealing with dysuria and urinary frequency over the past few months since his TURP. He was treated at least one time in the past few months as an outpatient by his Urologist for a urinary tract infection per the patient. He denies any previous abdominal surgeries. He was diagnosed with prostate cancer in October of 2021 and follows urology here at [facility]. They are currently monitoring his prostate
--- NOTE | 2021-12-30 13:52 | WPDANESEPPF ---
Anes - Initial Pre Proc Eval Procedure: Operation Date: 12/30/21 17:00 Proposed Procedures p Exploratory Laparotomy, Possible Bowel Resection - Quintin Tamez MD Date/Time: 12/30/21 13:52 Pre Op Diagnosis: Partial Small Bowel Obstruction Patient Data Age: 81 Gender: M Height: 1.7 m Weight: 79.7 kg Last Vital Signs Temp 35.9 C L 12/30/21 06:00 Pulse 67 12/30/21 06:00 Resp 14 12/30/21 06:00 BP 150/86 H 12/30/21 06:00 Pulse Ox 99 12/30/21 06:00 O2 Del Method Room Air 12/29/21 19:12 Allergies Allergy/AdvReac Type Severity Reaction Status Date / Time No Known Allergies Allergy Verified 12/29/21 15:36 Home Medications Medication Instructions Recorded Confirmed Type aspirin 81 mg tablet,delayed 81 mg PO DAILY 04/19/19 12/30/21 History release rosuvastatin 10 mg tablet 10 mg PO DAILY 10/15/20 12/30/21 History omeprazole 20 mg capsule,delayed See Rx Instructions .Route 06/17/21 12/30/21 Rx release .COMPLEX #90 caps ropinirole 1 mg tablet See Rx Instructions .Route 06/17/21 12/30/21 Rx .COMPLEX #540 tabs metoprolol succinate 25 mg See Rx Instructions .Route 09/15/21 12/30/21 Rx tablet,extended release 24 hr .COMPLEX #90 tabs docusate sodium 100 mg capsule 100 mg PO DAILY #30 caps 10/09/21 12/30/21 Rx (Colace) hydrocodone 5 mg-acetaminophen 325 1 - 2 tablet PO Q6H PRN pain #20 10/09/21 12/30/21 Rx mg tablet tabs carbidopa 25 mg-levodopa 100 mg See Rx Instructions .Route 12/14/21 12/30/21 Rx tablet .COMPLEX #1,080 tabs Laboratory Tests 12/29/21 12/29/21 12/29/21 19:18 19:18 19:30 WBC 12.7 K/mm3 H K/mm3 (4.5-10.0) RBC 4.59 M/mm3 L M/mm3 (4.6-6.20) Hgb 14.0 g/dL D g/dL (14.0-18.0) Hct 41.9 % L % (42.0-52.0) MCV 91.3 fl fl (80-100) MCH 30.5 pg pg (26-34) MCHC 33.4 g/dl g/dl (32-36) RDW 13.4 % % (11.5-14.5) Plt Count 275 k/mm3 D k/mm3 (150-375) MPV 9.8 fl fl (7.4-10.4) Immature Gran % (Auto) 0.4 % % (0-0.5) Neut % (Auto) 88.4 % H % (45.5-73.1) Lymph % (Auto) 6.2 % L % (18.3-44.2) [place] % (Auto) 4.3 % % (2.6-8.5) Eos % (Auto) 0.2 % % (0-4.4) Baso % (Auto) 0.5 % % (0.2-1.2) Lymph # (Auto) 0.79 K/mm3 L K/mm3 (0.9-3.2) [place] # (Auto) 0.5 K/mm3 K/mm3 (0.1-0.6) Eos # (Auto) 0.0 K/mm3 K/mm3 (0-0.3) Baso # (Auto) 0.1 K/mm3 K/mm3 (0.0-0.1) Abs Immat Gran (auto) 0.05 K/mm3 H K/mm3 (0.00-0.031) Absolute Neuts (auto) 11.2 K/mm3 H K/mm3 (1.3-6.7) Absolute Nucleated RBC 0.0 K/mm3 K/mm3 (0.0-0.012) Nucleated RBC % 0.0 % % (0.0-0.2) Sodium 139 mmol/L mmol/L (137-145) Potassium 4.1 mmol/L mmol/L (3.4-5.0) Chloride 98 mmol/L mmol/L (98-107) Carbon Dioxide 29 mmol/L mmol/L (22-30) Anion Gap 12 mmol/L mmol/L (8-16) BUN 24 mg/dL H mg/dL (9-20) Creatinine 1.20 mg/dL mg/dL (0.7-1.3) Estim Creat Clear Calc 40 ml/min ml/min Estimated GFR 58 L (59 - ) Glucose 150 mg/dL H mg/dL (65-110) Lactic Acid 1.5 mmol/L mmol/L (0.7-2.0) Calcium 9.5 mg/dL mg/dL (8.4-10.2) Total Bilirubin 0.6 mg/dL mg/dL (0.2-1.3) AST 36 U/L U/L (17-59) ALT 24 U/L U/L (6-50) Alkaline Phosphatase 80 U/L U/L (38-126) Total Protein 8.0 g/dL g/dL (6.3-8.2) Albumin 4.6 g/dL g/dL (3.5-5.1) Lipase 76 U/L U/L (23-300) Urine Color Urine Appearance Urine pH Ur Specific [place] Urine Protein Urine Glucose (UA) Urine Ketones Ur Blood (Man) Urine Nitrate Urine Bilirubin Urine Urobilinogen Leuk
--- NOTE | 2021-12-30 14:05 | WPDHPUPDATE1 ---
History and Physical Update Update Date/Time: 12/30/21 14:05 History and Physical has been reviewed, including an updated exam of the patient. There are NO changes in the patient's condition. Risks, benefits, and alternatives have been discussed and questions answered. Patient agrees to proceed with procedure.
[2021-12-30] MEDS: LACTATED RINGERS 1,000 ML 30 ML IV CONT ×2 (14:10→15:30)
[2021-12-30] MEDS: ceFAZolin 2 GM/D5W 50 ML 2 GM/50 ML BAG IVPB (14:21)
--- NOTE | 2021-12-30 14:31 | W.PM.PROC2 ---
Procedure Note - Detailed Date of Procedure 12/30/21 Pre-op Diagnosis Closed loop complete small-bowel obstruction Post-op Diagnosis Other (Closed loop small bowel obstruction with infarction) Procedure Performed Small-bowel resection with anastomosis Surgeon Quintin Tamez MD [employer] Jessica TOMAS, Edwige Dawson [facility] Anesthesia General Indications Patient was admitted with abdominal pain vomiting and imaging suggested a small-bowel obstruction with transition point in the right lower quadrant. Patient was undergoing small-bowel follow-through today and there was no progress. Re review of his CT scan suggested this was actually a closed loop small bowel obstruction. After discussion the patient is now taken to surgery for laparotomy. Findings Patient did have a closed loop obstruction with in adhesive band strangulating about 18 in of ileum. The ileum most distal and next to the adhesive band was infarcted. The 18 in of bowel was resected. [id number] but functional end-to-end anastomosis of the healthy ileum was performed. Description of Procedure Patient was taken to surgery and induced into general anesthesia. The abdomen was prepped and draped. A midline incision starting just above the umbilicus in proceeding to about 10 cm below the umbilicus was made. Dissection was carried through the midline fascia and the peritoneal cavity was entered. We immediately encountered blood-stained ascites, an ominous finding. We suctioned away the ascites and then I went to the patient's left side. Looking at the right lower quadrant, I was able to feel the dilated loops of bowel. I was able to mobilize this segment and exposed the infarcted bowel and the adhesive band involved. I could not really tell the source of the adhesive band as the bowel was fragile and I was concerned with too much manipulation. I did expose the band and divided it. This fully released all the involved ileum. This was brought up through the wound and eviscerated. After review, it was clear this would require resection. I thought it best to simplify and resect all of the ischemic as well as infarcted bowel. I made a small opening in the mesentery just proximal to the area of bowel to be resected. The TLC 75 was then used to divide the small intestine at this location. I then used the LigaSure and divided the mesentery to the involved small intestine staying at the border of the involved mesentery and normal mesentery. I continued this over to the distal area where the bowel was infarcted. I divided the mesentery up to healthy bowel just past the transition point and infarcted ileum. The TLC 75 was again used to divide the small intestine here. The resected bowel was passed off to pathology in formalin. We brought the 2 ends of small intestine in proximity in [id number] fashion. A hiqv-er-orlm but functional end-to-end anastomosis was then created with the TLC 75 stapler. I then closed the 2 ends of small intestine with the Tx 60 stapler. Some cautery was used on this staple line to achieve hemostasis. Both segments of bowel appeared to be very well vascularized and healthy. I closed the mesenteric defect to the 2 limbs of bowel were the anastomosis had been created with interrupted 3-0 silk suture. Another 3-0 silk was used to buttress the crotch of the anastomosis. I reviewed the bowel and ensured that there were no twists or other untoward changes in the anatomy. The bowel was then placed back in the abdomen in gentle S shaped curves. The omentum was positioned over the anastomosis and abdomen like an apron. 1. PDS suture was used in bidirectional fashion to close the fascia. 3-0 Vicryl interrupted subcutaneous sutures were used to close the subcutaneous. The skin was closed with wide montse. The wound was dressed with Xeroform gauze fluffs and Medipore tape. The patient was awakened and taken to recovery in good condition. Sponge and needle counts were
[2021-12-30] MEDS: fentaNYL CITRATE INJ (*CRX) 100 MCG/2 ML VIAL 25 MCG IV PUSH (16:00)
--- NOTE | 2021-12-30 17:00 | PM.IMPN ---
Progress Note: A&P Assessment and Plan (1) Partial obstruction of small intestine: Code(s): K56.600 - Partial intestinal obstruction, unspecified as to cause Status: Acute Assessment and Plan: CT abd/pelvis suggestive of partial small bowel obstruction. General surgery consulted and appreciate recommendations. Small bowel series with slow transit of contrast out of the stomach after 2 hours and possible closed loop obstruction. Plan for OR exp lap today. NPO NG in to low intermittent suction Continue IV fluids and pain control (2) Hypertension: Qualifiers: Hypertension type: primary hypertension Qualified Code(s): I10 - Essential (primary) hypertension Code(s): I10 - Essential (primary) hypertension Status: Chronic Assessment and Plan: Chronic, stable. BP 144-170/87-98, likely elevated secondary to pain and NPO status. Monitor vital signs and adjust medications as needed. Metoprolol IV Q6 hours Resume home antihypertensives when able to take PO. (3) Parkinsons disease: Code(s): G20 - Parkinson's disease Status: Acute Assessment and Plan: Chronic, stable. Resume carbidopa-levodopa when able to take PO (4) UTI (urinary tract infection): Qualifiers: Urinary tract infection type: acute cystitis Hematuria presence: without hematuria Qualified Code(s): N30.00 - Acute cystitis without hematuria Code(s): N39.0 - Urinary tract infection, site not specified Status: Acute Assessment and Plan: UA with +WBC, no nitrates or leukocytes. Rare epi cells. WBC 12.7. Stared on Rocephin 1 gram Q24 hour, first dose given 12/30/21 Adjust antibiotics per urine culture Trend CBC and temperature curve (5) CKD (chronic kidney disease): Qualifiers: Chronic kidney disease stage: stage 3 (moderate) Chronic kidney disease stage 3 subtype: stage 3a (GFR 45-59) Qualified Code(s): N18.31 - Chronic kidney disease, stage 3a Code(s): N18.9 - Chronic kidney disease, unspecified Status: Chronic Assessment and Plan: BUN 23, creatinine 1.2, GFR 58. Chronic, stable. Avoid nephrotoxic agents and dehydration. Monitor I/O. Plan CODE STATUS: FULL CODE Disposition: home when medically stable. Time Spent With Patient Time with patient: 15 - 25 minutes Subjective Date/time seen: 12/30/21 17:00 Patient lying in bed. He just returned from radiology following a small bowel series with plans to go to surgery today for bowel obstruction. Patient denies complaints at this time. Nursing notes, labs and imaging reviewed. Review of Systems Review of Systems: All systems reviewed & are unremarkable except as noted in HPI and below Exam Narrative: General: No acute distress.?sitting up in bed. No oxygen. Mental Status/Psych: Awake, alert and oriented to person, place and time with clear speech. Neutral mood and affect. Pleasant and cooperative. Skin: Skin fair, warm, dry and intact without rashes or lesions. No open wounds. Fair turgor.? HEENT: Normocephalic.Conjunctivae are clear. Sclera is non-icteric. Pupils equal and round. Grossly normal hearing. Oral mucosa moist. NG tube clamped. Neck: No JVD. Heart: S1 and S2 regular rate and rhythm. No murmurs, gallops or rubs auscultated. Chest: Respirations even and unlabored. Lung sounds are clear to auscultation bilaterally. No wheezing, rhonchi or rales appreciated. Abdomen: Soft, protuberant and tender to palpation.? Bowel sounds hypoactive in all 4 quadrants. No guarding. Extremities:? Grossly normal ROM all extremities. Generalized weakness. No edema, tenderness to palpation or deformity. Radial and dorsalis pedis pulses palpable bilaterally. Neurological: No focal deficits. Cranial nerves 2-12 grossly intact.? Objective Data Vital Signs Vital Signs: Vital Signs - 24 hr 12/29/21 19:12 12/29/21 20:47 12/29/21 21:10 Temperature 97.6 F Pulse Rate 6
[2021-12-30] MEDS: METOPROLOL TARTRATE INJ 5 MG/5 ML VIAL IV PUSH ×2 (18:06→23:30)
[2021-12-30] MEDS: IBUPROFEN IV 800 MG/200 ML 800 MG/200 ML BAG 400 MG IVPB ×2 (18:07→23:13)
[2021-12-30] MEDS: rOPINIRole HCL 0.5 MG TABLET FEED TUBE (20:03)
[2021-12-30] MEDS: CARBIDOPA/LEVODOPA 25/100 MG TABLET 3 TABLET FEED TUBE (20:03)
[2021-12-30] MEDS: rOPINIRole HCL 1 MG TABLET FEED TUBE (20:03)
[2021-12-30] MEDS: FAMOTIDINE 20 MG/2 ML VIAL IV PUSH (20:03)
[2021-12-31] MEDS: IBUPROFEN IV 800 MG/200 ML 800 MG/200 ML BAG 400 MG IVPB ×2 (05:12→11:07)
--- NOTE | 2021-12-31 05:25 | PC.NURSE ---
called MD Tamez's exchange pt pulled out NG tube, stated didn't want NG tube anymore, it was uncomfortable pt a&0x3, explained reasoning for NG still, pt continues to refused, stated wants to talk to MD Tamez first before reinserting NG tube.
--- NOTE | 2021-12-31 05:27 | PC.NURSE ---
awaiting call back from MD Tamez's exchange.
--- NOTE | 2021-12-31 05:42 | PC.NURSE ---
attempted to place NG tube curled unable to place at this time, meteorologist in charge Rosy Parekh informed, recalled MD Tamez exchange.
--- NOTE | 2021-12-31 05:56 | PC.NURSE ---
NG reinserted L nares 75 cm, stat KUB ordered.
[2021-12-31 06:00] VITALS: BP 122/62; PULSE 60; RESP 16; TEMP 35.9; O2SAT 94
[2021-12-31 06:02] VITALS: PULSE 66
[2021-12-31] MEDS: METOPROLOL TARTRATE INJ 5 MG/5 ML VIAL IV PUSH ×2 (06:02→17:08)
[2021-12-31 06:24] LABS: Hematocrit 31.5 % (42.0-52.0); Hemoglobin 10.4 g/dL (14.0-18.0); Mean Corpuscular Hemoglobin 30.5 pg (26-34); Mean Corpuscular Volume 92.4 fl (80-100); Mean Platelet Volume 10.2 fl (7.4-10.4); Platelet Count Result 194 k/mm3 (150-375); Red Blood Count 3.41 M/mm3 (4.6-6.20); Red Cell Distribution Width 13.9 % (11.5-14.5); White Blood Count 11.1 K/mm3 (4.5-10.0)
[2021-12-31 06:42] LABS: Anion Gap 10 mmol/L (8-16); Blood Urea Nitrogen 31 mg/dL (9-20); Calcium 8.6 mg/dL (8.4-10.2); Carbon Dioxide 24 mmol/L (22-30); Chloride 105 mmol/L (98-107); Estimated CRCL calculation 37 ml/min; Estimated Glomerular Filt Rate 53; Glucose 116 mg/dL (65-110); Potassium 4.2 mmol/L (3.4-5.0); Sodium 139 mmol/L (137-145)
[2021-12-31] MEDS: ENOXAPARIN 40 MG/0.4 ML SYRINGE SUB-Q (08:33)
[2021-12-31] MEDS: CARBIDOPA/LEVODOPA 25/100 MG TABLET 3 TABLET FEED TUBE ×4 (08:33→20:27)
[2021-12-31] MEDS: rOPINIRole HCL 0.5 MG TABLET FEED TUBE ×4 (08:33→20:27)
[2021-12-31] MEDS: FAMOTIDINE 20 MG/2 ML VIAL IV PUSH ×2 (08:33→20:28)
[2021-12-31] MEDS: rOPINIRole HCL 1 MG TABLET FEED TUBE ×4 (08:33→20:27)
--- NOTE | 2021-12-31 08:50 | PM.IMPN ---
Progress Note: A&P Assessment and Plan (1) Small bowel obstruction with strangulation or infarction: Status: Acute Assessment and Plan: CT abd/pelvis suggestive of partial small bowel obstruction. General surgery consulted and appreciate recommendations. Small bowel series with slow transit of contrast out of the stomach after 2 hours and possible closed loop obstruction. 12/30/21 s/p small bowel resection with infarction.? Continue NPO, NG in to low intermittent suction, IV fluids and pain control Educated patient on increasing ambulation for return of GI function. (2) Hypertension: Qualifiers: Hypertension type: primary hypertension Qualified Code(s): I10 - Essential (primary) hypertension Code(s): I10 - Essential (primary) hypertension Status: Chronic Assessment and Plan: Chronic, stable. BP 144-170/87-98, likely elevated secondary to pain and NPO status. Monitor vital signs and adjust medications as needed. Metoprolol IV Q6 hours Resume home antihypertensives when able to take PO. (3) Parkinsons disease: Code(s): G20 - Parkinson's disease Status: Chronic Assessment and Plan: Chronic, stable. Resume carbidopa-levodopa with sips of water per General Surgery (4) UTI (urinary tract infection): Qualifiers: Hematuria presence: without hematuria Urinary tract infection type: acute cystitis Qualified Code(s): N30.00 - Acute cystitis without hematuria Code(s): N39.0 - Urinary tract infection, site not specified Status: Acute Assessment and Plan: UA with +WBC, no nitrates or leukocytes. Rare epi cells. WBC 12.7. Stared on Rocephin 1 gram Q24 hour, first dose given 12/30/21 12/31/21 urine culture with mixed stalin. WBC 11. Will stop antibiotics at this time and monitor. Trend CBC and temperature curve (5) CKD (chronic kidney disease): Qualifiers: Chronic kidney disease stage: stage 3 (moderate) Chronic kidney disease stage 3 subtype: stage 3a (GFR 45-59) Qualified Code(s): N18.31 - Chronic kidney disease, stage 3a Code(s): N18.9 - Chronic kidney disease, unspecified Status: Chronic Assessment and Plan: BUN 23, creatinine 1.2, GFR 58. Chronic, stable. Avoid nephrotoxic agents and dehydration. Monitor I/O. Plan CODE STATUS: FULL CODE Disposition: home when medically stable. Time Spent With Patient Time with patient: 15 - 25 minutes Subjective Date/time seen: 12/31/21 08:50 Exam Narrative: General: No acute distress.?sitting up in bed. No oxygen. Mental Status/Psych: Awake, alert and oriented to person, place and time with clear speech. Neutral mood and affect. Pleasant and cooperative. Skin: Skin fair, warm, dry and intact without rashes or lesions. No open wounds. Fair turgor.? HEENT: Normocephalic.Conjunctivae are clear. Sclera is non-icteric. Pupils equal and round. Grossly normal hearing. Oral mucosa moist. NG tube clamped. Neck: No JVD. Heart: S1 and S2 regular rate and rhythm. No murmurs, gallops or rubs auscultated. Chest: Respirations even and unlabored. Lung sounds are clear to auscultation bilaterally. No wheezing, rhonchi or rales appreciated. Abdomen: Soft, protuberant and tender to palpation.? Bowel sounds hypoactive in all 4 quadrants. No guarding. Extremities:? Grossly normal ROM all extremities. Generalized weakness. No edema, tenderness to palpation or deformity. Radial and dorsalis pedis pulses palpable bilaterally. Neurological: No focal deficits. Cranial nerves 2-12 grossly intact.? Objective Data Vital Signs Vital Signs: Vital Signs - 24 hr 12/30/21 14:01 12/30/21 15:45 12/30/21 15:30 Temperature 99.4 F 97.4 F L 97.3 F L Pulse Rate 72 69 68 Respiratory Rate 20 16 20 Blood Pressure 178/91 H 159/80 H 170/85 H Pulse Oximetry 99 98 100 Oxygen Delivery Room Air Simple Face Mask Oxygen Flow Rate 10 12/30/21 15:45 12/30/21 16:00 12/30/21 16:1
--- NOTE | 2021-12-31 09:02 | PM.PNGS ---
Progress Note: A&P Assessment and Plan (1) Small bowel obstruction with strangulation or infarction: Status: Acute Assessment and Plan: continue NG tube NPO IV fluids. He is receiving his Parkinson's meds with sip of water. Up in chair and ambulate if possible today. Pretty awake and I think looking well. (2) Parkinsons disease: Code(s): G20 - Parkinson's disease Status: Chronic (3) Prostate CA: Code(s): C61 - Malignant neoplasm of prostate Status: Chronic (4) CKD (chronic kidney disease): Qualifiers: Chronic kidney disease stage: stage 3 (moderate) Chronic kidney disease stage 3 subtype: stage 3a (GFR 45-59) Qualified Code(s): N18.31 - Chronic kidney disease, stage 3a Code(s): N18.9 - Chronic kidney disease, unspecified Status: Chronic Subjective Subjective Date/Time Seen: 12/31/21 09:02 Post Op day: 1 Patient reports: no new complaints, pain is less, no flatus and no bowel movement Exam Const: General: cooperative, comfortable, no acute distress, alert and awake Nutritional Appearance: thin Orientation/consciousness: No confusion GI: Inspection: non-distended and incision ( dry and healing well) GI Palp: Yes Soft to palpation, Yes Tenderness to palpation present (GI), No Hernia present, No Palpable mass present and No Ascites present Auscultation: absent bowel sounds Objective Data Vital Signs Vital Signs: Vital Signs - 24 hr 12/30/21 14:01 12/30/21 15:45 12/30/21 15:30 Temperature 37.4 C 36.3 C L 36.3 C L Pulse Rate 72 69 68 Respiratory Rate 20 16 20 Blood Pressure 178/91 H 159/80 H 170/85 H Pulse Oximetry 99 98 100 Oxygen Delivery Room Air Simple Face Mask Oxygen Flow Rate 10 12/30/21 15:45 12/30/21 16:00 12/30/21 16:15 Temperature Pulse Rate 87 72 73 Respiratory Rate 18 16 14 Blood Pressure 173/82 H 161/89 H 145/98 H Pulse Oximetry 100 100 100 Oxygen Delivery Simple Face Mask Nasal Cannula Nasal Cannula Oxygen Flow Rate 10 3 3 12/30/21 16:30 12/30/21 16:45 12/30/21 17:00 Temperature 36.4 C L Pulse Rate 67 69 72 Respiratory Rate 12 14 12 Blood Pressure 162/87 H 165/88 H 158/74 H Pulse Oximetry 100 100 100 Oxygen Delivery Nasal Cannula Nasal Cannula Nasal Cannula Oxygen Flow Rate 3 3 3 12/30/21 18:06 12/30/21 18:18 12/30/21 18:22 Temperature Pulse Rate 95 Respiratory Rate Blood Pressure Pulse Oximetry 99 97 Oxygen Delivery Nasal Cannula Room Air Oxygen Flow Rate 1 12/30/21 16:00 12/30/21 16:15 12/30/21 16:30 Temperature 36.7 C 36.6 C 36.4 C L Pulse Rate 74 58 L 58 L Respiratory Rate 16 15 15 Blood Pressure 154/85 H 144/79 H 132/70 Pulse Oximetry 100 100 97 Oxygen Delivery Oxygen Flow Rate 12/30/21 17:00 12/30/21 20:00 12/30/21 23:30 Temperature 36.3 C L Pulse Rate 55 L 95 70 Respiratory Rate 16 16 Blood Pressure 132/72 Pulse Oximetry 97 97 Oxygen Delivery Room Air Oxygen Flow Rate 12/30/21 22:30 12/31/21 06:02 12/31/21 06:00 Temperature 36.6 C 35.9 C L Pulse Rate 68 66 60 Respiratory Rate 16 16 Blood Pressure 145/81 H 122/62 Pulse Oximetry 95 94 Oxygen Delivery Oxygen Flow Rate Intake/Output Intake/Output: Intake & Output 12/28/21 12/29/21 12/30/21 12/31/21 23:59 23:59 23:59 23:59 Intake Total 1000 750 230 Output Total 350 100 Balance 1000 400 130 Meds/Results Medications: Active Medications Generic Name Dose Route Start Last Admin Trade Name Jessica PRN Reason Stop Dose Admin Carbidopa/Levodopa 3 tablet 12/30/21 21:00 12/31/21 08:33 Carbidopa/Levodopa 25/100 Mg Tablet FEED TUBE 3 tablet QID MARIANA Administration Enoxaparin Sodium 40 mg 12/30/21 09:00 12/31/21 08:33 Enoxaparin 40 Mg/0.4 Ml Syringe SUB-Q 40 mg DAILY MARIANA Administration Famotidine 20 mg 12/30/21 21:00 12/31/21 08:33 Famotidine 20 Mg/2 Ml Vial IV PUSH 20 mg Q12HR MARIANA Administration Fentanyl Citrate 25 mcg 12/30/21
--- NOTE | 2021-12-31 09:18 | WPDANESPN ---
Anes - Prog Note Post-Op Date/Time: 12/31/21 09:18 Vital Signs: Last Vital Signs Temp 35.9 C L 12/31/21 06:00 Pulse 66 12/31/21 06:02 Resp 16 12/31/21 06:00 BP 122/62 12/31/21 06:00 Pulse Ox 94 12/31/21 06:00 O2 Del Method Room Air 12/30/21 20:00 O2 Flow Rate 1 12/30/21 18:18 Pain Score (VAS): 0 I/O: Intake & Output 12/30/21 12/31/21 12/31/21 23:59 07:59 15:59 Intake Total 650 230 Output Total 50 100 Balance 600 130 Laboratory Tests 12/31/21 06:02 12/31/21 06:02 12/31/21 12/31/21 06:02 06:02 WBC 11.1 H RBC 3.41 L Hgb 10.4 L D Hct 31.5 L MCV 92.4 MCH 30.5 MCHC 33.0 RDW 13.9 Plt Count 194 MPV 10.2 Sodium 139 Potassium 4.2 Chloride 105 Carbon Dioxide 24 Anion Gap 10 BUN 31 H Creatinine 1.30 Estim Creat Clear Calc 37 Estimated GFR 53 L Glucose 116 H Calcium 8.6 Microbiology 12/29/21 20:40 Unspecified Urine Culture - Final Patient Feedback: Patient satisfied with anesthetic care.
[2021-12-31] MEDS: SODIUM CHLORIDE 0.9% IV 1,000 ML 125 ML IV CONT ×2 (11:06→19:59)
[2021-12-31 11:13] VITALS: PULSE 48
[2021-12-31 13:49] VITALS: BP 145/76; PULSE 53; RESP 20; TEMP 36; O2SAT 100
[2021-12-31 17:08] VITALS: PULSE 64
[2021-12-31] MEDS: IBUPROFEN IV 800 MG/200 ML 800 MG/200 ML BAG 200 MG IVPB (17:16)
[2021-12-31 22:00] VITALS: BP 151/75; PULSE 54; RESP 15; TEMP 36.2; O2SAT 97
[2022-01-01] VITALS (7 sets, daily range): BP systolic 147–171; BP diastolic 85–98; PULSE 54–65; RESP 16–20; TEMP 35.7–36.3; O2SAT 97–98
[2022-01-01] MEDS: IBUPROFEN IV 800 MG/200 ML 800 MG/200 ML BAG 400 MG IVPB ×4 (00:22→17:34)
[2022-01-01] MEDS: METOPROLOL TARTRATE INJ 5 MG/5 ML VIAL IV PUSH ×2 (00:22→05:28)
[2022-01-01] MEDS: SODIUM CHLORIDE 0.9% IV 1,000 ML 125 ML IV CONT (04:24)
[2022-01-01 06:58] LABS: Alanine Aminotransferase 9 U/L (6-50); Albumin Level 3.4 g/dL (3.5-5.1); Alkaline Phosphatase 47 U/L (38-126); Anion Gap 5 mmol/L (8-16); Aspartate Amino Transferase 27 U/L (17-59); Bilirubin,Total 0.6 mg/dL (0.2-1.3); Blood Urea Nitrogen 26 mg/dL (9-20); Carbon Dioxide 28 mmol/L (22-30); Chloride 101 mmol/L (98-107); Estimated CRCL calculation 44 ml/min; Estimated Glomerular Filt Rate > 60; Glucose 88 mg/dL (65-110); Potassium 3.2 mmol/L (3.4-5.0); Sodium 134 mmol/L (137-145)
[2022-01-01] MEDS: ENOXAPARIN 40 MG/0.4 ML SYRINGE SUB-Q (08:44)
[2022-01-01] MEDS: rOPINIRole HCL 0.5 MG TABLET FEED TUBE ×2 (08:45→12:46)
[2022-01-01] MEDS: FAMOTIDINE 20 MG/2 ML VIAL IV PUSH (08:45)
[2022-01-01] MEDS: rOPINIRole HCL 1 MG TABLET FEED TUBE ×2 (08:45→12:46)
[2022-01-01] MEDS: CARBIDOPA/LEVODOPA 25/100 MG TABLET 3 TABLET FEED TUBE ×2 (08:45→12:46)
--- NOTE | 2022-01-01 09:20 | PM.PNGS ---
Progress Note: A&P Assessment and Plan (1) Small bowel obstruction with strangulation or infarction: Status: Acute Assessment and Plan: continues to improve. Will leave NG tube out and start small amounts of clear liquids. up out of bed again today. Potassium down to 3.2. Will supplement. Will also give a dose of Bumex to diurese. Overall doing well. (2) Parkinsons disease: Code(s): G20 - Parkinson's disease Status: Chronic Assessment and Plan: Receiving home meds (3) CKD (chronic kidney disease): Qualifiers: Chronic kidney disease stage: stage 3 (moderate) Chronic kidney disease stage 3 subtype: stage 3a (GFR 45-59) Qualified Code(s): N18.31 - Chronic kidney disease, stage 3a Code(s): N18.9 - Chronic kidney disease, unspecified Status: Chronic Assessment and Plan: creatinine down to 1.1 (4) Prostate CA: Code(s): C61 - Malignant neoplasm of prostate Status: Chronic Subjective Subjective Date/Time Seen: 01/01/22 09:20 Post Op day: 2 Patient reports: no new complaints, pain is less, no flatus, no bowel movement and afebrile Interval history: Patient pulled out NG tube again. Has been left out. Exam Const: General: cooperative, comfortable and alert Nutritional Appearance: average body habitus Orientation/consciousness: No confusion GI: Inspection: incision ( Dry and healing well) GI Palp: Yes Soft to palpation, Yes Tenderness to palpation present (GI), No Hernia present, No Palpable mass present and No Ascites present Auscultation: Hypoactive bowel sounds present Objective Data Vital Signs Vital Signs: Vital Signs - 24 hr 12/31/21 11:13 12/31/21 13:49 12/31/21 17:08 Temperature 36.0 C L Pulse Rate 48 L 53 L 64 Respiratory Rate 20 Blood Pressure 145/76 H Pulse Oximetry 100 Oxygen Delivery 12/31/21 22:00 01/01/22 00:22 01/01/22 05:28 Temperature 36.2 C L Pulse Rate 54 L 55 L 54 L Respiratory Rate 15 Blood Pressure 151/75 H Pulse Oximetry 97 Oxygen Delivery 01/01/22 06:00 01/01/22 08:45 Temperature 36.3 C L Pulse Rate 59 L Respiratory Rate 16 Blood Pressure 147/85 H Pulse Oximetry 98 Oxygen Delivery Room Air Intake/Output Intake/Output: Intake & Output 12/29/21 12/30/21 12/31/21 01/01/22 23:59 23:59 23:59 23:59 Intake Total 9102 060 4330 1300 Output Total 995 938 2330 Balance 3794 120 0859 250 Meds/Results Medications: Active Medications Generic Name Dose Route Start Last Admin Trade Name Freq PRN Reason Stop Dose Admin Carbidopa/Levodopa 3 tablet 12/30/21 21:00 01/01/22 08:45 Carbidopa/Levodopa 25/100 Mg Tablet FEED TUBE 3 tablet QID MARIANA Administration Enoxaparin Sodium 40 mg 12/30/21 09:00 01/01/22 08:44 Enoxaparin 40 Mg/0.4 Ml Syringe SUB-Q 40 mg DAILY MARIANA Administration Famotidine 20 mg 12/30/21 21:00 01/01/22 08:45 Famotidine 20 Mg/2 Ml Vial IV PUSH 20 mg Q12HR MARIANA Administration Fentanyl Citrate 25 mcg 12/30/21 17:35 Fentanyl Citrate Inj (*Crx) 100 Mcg/2 Ml Vial IV PUSH Q2H PRN Pain Rated 7-10 Fentanyl Citrate 12.5 mcg 12/30/21 17:35 Fentanyl Citrate Inj (*Crx) 100 Mcg/2 Ml Vial IV PUSH Q2H PRN Pain Rated 4-6 Fentanyl Citrate 6.25 mcg 12/30/21 17:35 Fentanyl Citrate Inj (*Crx) 100 Mcg/2 Ml Vial IV PUSH Q2H PRN Pain Rated 1-3 Ibuprofen 800 mg in 200 mls @ 400 mls/hr 12/30/21 18:00 01/01/22 05:28 Caldolor 800 Mg/200 Ml IVPB 400 mls/hr Q6HR MARIANA Administration Sodium Chloride 1,000 mls @ 125 mls/hr 12/31/21 10:40 01/01/22 04:24 Normal Saline Iv IV CONT 125 mls/hr .Q8H MARIANA Administration Metoprolol Tartrate 5 mg 12/30/21 18:00 01/01/22 05:28 Metoprolol Tartrate Inj 5 Mg/5 Ml Vial IV PUSH 5 mg Q6HR MARIANA Administration Ondansetron HCl 4 mg 12/29/21 21:15 Ondansetron Inj 4 Mg/2 Ml Vial IV PUSH Q4H PRN Nausea Bina
[2022-01-01] MEDS: PANTOPRAZOLE 40 MG TABLET PO (11:28)
[2022-01-01] MEDS: polyethylene glycoL 3350 17 GM POWD.PACK PO (11:28)
[2022-01-01] MEDS: ROSUVASTATIN 10 MG TABLET PO (11:29)
[2022-01-01] MEDS: METOPROLOL SUCCINATE EXT REL 25 MG TABCR BY MOUTH (11:29)
[2022-01-01] MEDS: BUMETANIDE INJ 1 MG/4 ML VIAL IV PUSH (11:29)
[2022-01-01] MEDS: POTASSIUM CHLORIDE 20 MEQ TABLET 40 MEQ PO (11:29)
[2022-01-01] MEDS: KCL 20MEQ/0.9% SOD CHL 1,000 ML 60 ML IV CONT (11:30)
--- NOTE | 2022-01-01 13:05 | PM.IMPN ---
Progress Note: A&P Assessment and Plan (1) Small bowel obstruction with strangulation or infarction: Status: Acute Assessment and Plan: CT abd/pelvis suggestive of partial small bowel obstruction. General surgery consulted and appreciate recommendations. Small bowel series with slow transit of contrast out of the stomach after 2 hours and possible closed loop obstruction. 12/30/21 s/p small bowel resection with infarction.? 01/01/22 NG pulled out by patient today. Okay to leave out per surgery. Advanced to clears. Continue lowered dose IV fluids and pain control. Ambulate in the hallway. PT/OT consulted. (2) Hypertension: Qualifiers: Hypertension type: primary hypertension Qualified Code(s): I10 - Essential (primary) hypertension Code(s): I10 - Essential (primary) hypertension Status: Chronic Assessment and Plan: Chronic, stable. BP 144-170/87-98, likely elevated secondary to pain and NPO status. Monitor vital signs and adjust medications as needed. 01/01/22 resume home medications. (3) Parkinsons disease: Code(s): G20 - Parkinson's disease Status: Chronic Assessment and Plan: Chronic, stable. Continue carbidopa-levodopa (4) CKD (chronic kidney disease): Qualifiers: Chronic kidney disease stage: stage 3 (moderate) Chronic kidney disease stage 3 subtype: stage 3a (GFR 45-59) Qualified Code(s): N18.31 - Chronic kidney disease, stage 3a Code(s): N18.9 - Chronic kidney disease, unspecified Status: Chronic Assessment and Plan: BUN 23, creatinine 1.2, GFR 58. Chronic, stable. Avoid nephrotoxic agents and dehydration. Monitor I/O. (5) Asymptomatic bacteriuria: Code(s): R82.71 - Bacteriuria Status: Resolved Assessment and Plan: UA with +WBC, no nitrates or leukocytes. Rare epi cells. WBC 12.7. Stared on Rocephin 1 gram Q24 hour, first dose given 12/30/21 12/31/21 urine culture with mixed stalin. WBC 11. Will stop antibiotics at this time and monitor. Trend CBC and temperature curve 01/01/22 asymptomatic. Plan CODE STATUS: FULL CODE Disposition: home when medically stable. Time Spent With Patient Time with patient: 15 - 25 minutes Subjective Date/time seen: 01/01/22 13:05 Interval history: Patient sitting up in the chair. He denies complaints at this time. Nursing reports the patient pulled out his NG tube this morning. He denies nausea, vomiting or BM. No flatus. Surgery advancing to clear liquids and monitoring patient without NG tube for now. Review of Systems Review of Systems: All systems reviewed & are unremarkable except as noted in HPI and below Exam Narrative: General: No acute distress.?sitting up in the chair. No oxygen. Mental Status/Psych: Awake, alert and oriented to person, place and time with clear speech. Neutral mood and flat affect. Pleasant and cooperative. Skin: Skin fair, warm, dry and intact without rashes or lesions. midline incision clean, dry, intact. Fair turgor.? HEENT: Normocephalic. Sclera is non-icteric. Pupils equal and round. Grossly normal hearing. Oral mucosa moist. nares patent. Heart: S1 and S2 regular rate and rhythm. No murmurs, gallops or rubs auscultated. Chest: Respirations even and unlabored. Lung sounds are clear to auscultation bilaterally. No wheezing, rhonchi or rales appreciated. Abdomen: Soft, round and tender to palpation.? Bowel sounds present in all 4 quadrants. No guarding. Extremities:? Grossly normal ROM all extremities. Generalized weakness. No edema, tenderness to palpation or deformity. Radial and dorsalis pedis pulses palpable bilaterally. Neurological: No focal deficits. Cranial nerves 2-12 grossly intact.? Objective Data Vital Signs Vital Signs: Vital Signs - 24 hr 12/31/21 13:49 12/31/21 17:08 12/31/21 22:00 Temperature 96.8 F L 97.1 F L Pulse Rate 53 L 64 54 L Respiratory Rate 20 15 Blood Pressure 145/76 H 15
[2022-01-01] MEDS: rOPINIRole HCL 0.5 MG TABLET PO ×2 (16:12→20:55)
[2022-01-01] MEDS: rOPINIRole HCL 1 MG TABLET PO ×2 (16:12→20:55)
[2022-01-01] MEDS: POTASSIUM CHLORIDE 20 MEQ TABLET.ER 40 MEQ PO (16:12)
[2022-01-01] MEDS: CARBIDOPA/LEVODOPA 25/100 MG TABLET 3 TABLET PO ×2 (16:13→20:55)
[2022-01-02] MEDS: IBUPROFEN IV 800 MG/200 ML 800 MG/200 ML BAG 400 MG IVPB ×3 (00:13→18:58)
[2022-01-02] MEDS: KCL 20MEQ/0.9% SOD CHL 1,000 ML 60 ML IV CONT (00:14)
[2022-01-02 06:00] VITALS: BP 164/87; PULSE 65; RESP 20; TEMP 36.2; O2SAT 97
[2022-01-02 06:50] LABS: Hematocrit 36.4 % (42.0-52.0); Mean Corpuscular Hemoglobin 30.4 pg (26-34); Mean Corpuscular Volume 92.2 fl (80-100); Mean Platelet Volume 10.5 fl (7.4-10.4); Platelet Count Result 210 k/mm3 (150-375); Red Blood Count 3.95 M/mm3 (4.6-6.20); Red Cell Distribution Width 13.2 % (11.5-14.5); White Blood Count 8.6 K/mm3 (4.5-10.0)
[2022-01-02 07:04] LABS: Anion Gap 7 mmol/L (8-16); Blood Urea Nitrogen 20 mg/dL (9-20); Calcium 8.1 mg/dL (8.4-10.2); Carbon Dioxide 28 mmol/L (22-30); Chloride 99 mmol/L (98-107); Estimated CRCL calculation 53 ml/min; Estimated Glomerular Filt Rate > 60; Glucose 97 mg/dL (65-110); Potassium 3.7 mmol/L (3.4-5.0); Sodium 134 mmol/L (137-145)
[2022-01-02 08:00] VITALS: BP 165/94; PULSE 63; RESP 16; TEMP 36.6; O2SAT 100
[2022-01-02 08:03] VITALS: PULSE 64
[2022-01-02] MEDS: polyethylene glycoL 3350 17 GM POWD.PACK PO (08:03)
[2022-01-02] MEDS: METOPROLOL SUCCINATE EXT REL 25 MG TABCR BY MOUTH (08:03)
[2022-01-02] MEDS: PANTOPRAZOLE 40 MG TABLET PO (08:04)
[2022-01-02] MEDS: ROSUVASTATIN 10 MG TABLET PO (08:04)
[2022-01-02] MEDS: rOPINIRole HCL 1 MG TABLET PO ×3 (08:05→16:59)
[2022-01-02] MEDS: POTASSIUM CHLORIDE 20 MEQ TABLET.ER 40 MEQ PO ×2 (08:05→16:59)
[2022-01-02] MEDS: ENOXAPARIN 40 MG/0.4 ML SYRINGE SUB-Q (08:05)
[2022-01-02] MEDS: rOPINIRole HCL 0.5 MG TABLET PO ×3 (08:05→16:59)
[2022-01-02] MEDS: CARBIDOPA/LEVODOPA 25/100 MG TABLET 3 TABLET PO ×3 (08:05→16:59)
--- NOTE | 2022-01-02 08:39 | PM.IMPN ---
Progress Note: A&P Assessment and Plan (1) Small bowel obstruction with strangulation or infarction: Status: Acute Assessment and Plan: CT abd/pelvis suggestive of partial small bowel obstruction. General surgery consulted and appreciate recommendations. Small bowel series with slow transit of contrast out of the stomach after 2 hours and possible closed loop obstruction. 12/30/21 s/p small bowel resection with infarction.? 01/01/22 NG pulled out by patient today. Okay to leave out per surgery. Advanced to clears. Continue lowered dose IV fluids and pain control. Ambulate in the hallway. PT/OT consulted. 01/02/22 No emesis, flatus or BM. Taking in clear liquids without c/o worsening pain. Reinforced ambulating. Patient taking in adequate oral liquids and UOP stable. Saline lock IV fluids. Continue current management. Diet advancement per Surgery. (2) Hypertension: Qualifiers: Hypertension type: primary hypertension Qualified Code(s): I10 - Essential (primary) hypertension Code(s): I10 - Essential (primary) hypertension Status: Chronic Assessment and Plan: Chronic, stable. BP 144-170/87-98, likely elevated secondary to pain and NPO status. Monitor vital signs and adjust medications as needed. 01/01/22 resume home medications. 01/02/22 Stop IV fluids. Continue metoprolol. Add PRN IV hydralazine SBP>160 or DBP>100 (3) Parkinsons disease: Code(s): G20 - Parkinson's disease Status: Chronic Assessment and Plan: Chronic, stable. Continue carbidopa-levodopa (4) CKD (chronic kidney disease): Qualifiers: Chronic kidney disease stage: stage 3 (moderate) Chronic kidney disease stage 3 subtype: stage 3a (GFR 45-59) Qualified Code(s): N18.31 - Chronic kidney disease, stage 3a Code(s): N18.9 - Chronic kidney disease, unspecified Status: Chronic Assessment and Plan: BUN 23, creatinine 1.2, GFR 58. Chronic, stable. Avoid nephrotoxic agents and dehydration. Monitor I/O. (5) Asymptomatic bacteriuria: Code(s): R82.71 - Bacteriuria Status: Resolved Assessment and Plan: UA with +WBC, no nitrates or leukocytes. Rare epi cells. WBC 12.7. Stared on Rocephin 1 gram Q24 hour, first dose given 12/30/21 12/31/21 urine culture with mixed stalin. WBC 11. Will stop antibiotics at this time and monitor. Trend CBC and temperature curve 01/01/22 asymptomatic. Plan CODE STATUS: FULL CODE Disposition: will likely need SNF Time Spent With Patient Time with patient: 15 - 25 minutes Subjective Date/time seen: 01/02/22 08:39 Patient sitting up in the bed drinking tea. He c/o hiccuping and bloating. Therapy notes state the patient ambulated only 10 feet with assistance and SNF is recommended. He denies nausea, vomiting, flatus or BM. No chest pain or SOB. Review of Systems Review of Systems: All systems reviewed & are unremarkable except as noted in HPI and below Exam Narrative: General: No acute distress.?sitting up in the chair. No oxygen. Mental Status/Psych: Awake, alert and oriented to person, place and time with clear, slow speech. flat affect. cooperative. Skin: Skin fair, warm, dry and intact without rashes or lesions. midline incision clean, dry, intact. Fair turgor.? HEENT: Normocephalic. Sclera is non-icteric. Pupils equal and round. Grossly normal hearing. Oral mucosa moist. nares patent. Heart: S1 and S2 regular rate and rhythm. No murmurs, gallops or rubs auscultated. Chest: Respirations even and unlabored. Lung sounds are clear to auscultation bilaterally. No wheezing, rhonchi or rales appreciated. Abdomen: Soft, round and tender to palpation.? Bowel sounds hyperactive in all 4 quadrants. No guarding. Extremities:? Grossly normal ROM all extremities. Generalized weakness. No edema, tenderness to palpation or deformity. Radial and dorsalis pedis pulses palpable bilaterally. Neurological: No focal defici
[2022-01-02 16:00] VITALS: BP 123/76; PULSE 70; RESP 16; TEMP 36.6; O2SAT 97
--- NOTE | 2022-01-02 16:48 | PM.PNGS ---
Progress Note: A&P Assessment and Plan (1) Small bowel obstruction with strangulation or infarction: Status: Acute Assessment and Plan: continue clear liquids and await return of bowel function increase activity (2) Parkinsons disease: Code(s): G20 - Parkinson's disease Status: Chronic Assessment and Plan: Receiving home meds (3) CKD (chronic kidney disease): Qualifiers: Chronic kidney disease stage: stage 3 (moderate) Chronic kidney disease stage 3 subtype: stage 3a (GFR 45-59) Qualified Code(s): N18.31 - Chronic kidney disease, stage 3a Code(s): N18.9 - Chronic kidney disease, unspecified Status: Chronic (4) Prostate CA: Code(s): C61 - Malignant neoplasm of prostate Status: Chronic Subjective Subjective Date/Time Seen: 01/02/22 16:48 Interval history: Patient still not passing much flatus or having bowel movements. Only complains of hiccups. No nausea or vomiting. Exam GI: Inspection: non-distended and incision ( Intact with montse) GI Palp: Yes Soft to palpation, No Tenderness to palpation present (GI) and No Guarding due to palpation present (GI) Auscultation: Hypoactive bowel sounds present Objective Data Vital Signs Vital Signs: Vital Signs - 24 hr 01/01/22 20:00 01/01/22 22:00 01/02/22 06:00 Temperature 35.7 C L 36.2 C L Pulse Rate 64 65 65 Respiratory Rate 20 17 20 Blood Pressure 171/98 H 164/87 H Pulse Oximetry 97 98 97 Oxygen Delivery Room Air 01/02/22 08:03 01/02/22 08:00 01/02/22 08:05 Temperature 36.6 C Pulse Rate 64 63 Respiratory Rate 16 Blood Pressure 165/94 H Pulse Oximetry 100 Oxygen Delivery Room Air 01/02/22 16:00 Temperature 36.6 C Pulse Rate 70 Respiratory Rate 16 Blood Pressure 123/76 Pulse Oximetry 97 Oxygen Delivery Intake/Output Intake/Output: Intake & Output 12/30/21 12/31/21 01/01/22 01/02/22 23:59 23:59 23:59 23:59 Intake Total 750 1630 4740 2750 Output Total 931 049 1401 300 Balance 400 1530 3690 2450 Meds/Results Medications: Active Medications Generic Name Dose Route Start Last Admin Trade Name Freq PRN Reason Stop Dose Admin Acetaminophen 500 mg 01/01/22 09:32 Acetaminophen 500 Mg Tablet PO Q6H PRN Mild Pain (1-3) or Fever Hydrocodone Bitart/Acetaminophen 1 tab 01/01/22 09:32 Hydrocodone/Acetaminophen (*Crx) 5-325 Mg Tablet PO Q4H PRN Pain Rated 7-10 Carbidopa/Levodopa 3 tablet 01/01/22 17:00 01/02/22 12:32 Carbidopa/Levodopa 25/100 Mg Tablet PO 3 tablet QID [facility]IA[facility] Administration Enoxaparin Sodium 40 mg 12/30/21 09:00 01/02/22 08:05 Enoxaparin 40 Mg/0.4 Ml Syringe SUB-Q 40 mg DAILY [facility] Administration Fentanyl Citrate 25 mcg 12/30/21 17:35 Fentanyl Citrate Inj (*Crx) 100 Mcg/2 Ml Vial IV PUSH Q2H PRN Pain Rated 7-10 Fentanyl Citrate 12.5 mcg 12/30/21 17:35 Fentanyl Citrate Inj (*Crx) 100 Mcg/2 Ml Vial IV PUSH Q2H PRN Pain Rated 4-6 Hydralazine HCl 10 mg 01/02/22 16:08 Hydralazine Hcl 20 Mg/Ml Vial IV PUSH Q6HR PRN Blood Pressure - High Ibuprofen 800 mg in 200 mls @ 400 mls/hr 12/30/21 18:00 01/02/22 15:34 Caldolor 800 Mg/200 Ml IVPB Infused Q6HR [facility] Infusion Ibuprofen 800 mg in 200 mls @ 400 mls/hr 01/01/22 09:32 Caldolor 800 Mg/200 Ml IVPB Q6H PRN Pain Rated 1-3 Metoprolol Succinate 25 mg 01/01/22 09:00 01/02/22 08:03 Metoprolol Succinate Ext Rel 25 Mg Tabcr BY MOUTH 25 mg DAILY [facility] Administration Ondansetron HCl 4 mg 12/29/21 21:15 Ondansetron Inj 4 Mg/2 Ml Vial IV PUSH Q4H PRN Nausea Pantoprazole Sodium 40 mg 01/02/22 09:00 01/02/22 08:04 Pantoprazole 40 Mg Tablet PO 40 mg QAM MARIANA Administration Polyethylene Glycol 17 gm 01/01/22 09:00 01/02/22 08:03 Polyethylene Glycol 3350 17 Gm Powd.Pack PO 17 gm QAM MARIANA Administration Potassium Chloride 40 me
[2022-01-02] MEDS: SIMETHICONE 80 MG TAB.CHEW PO (16:59)
[2022-01-02 22:00] VITALS: BP 168/105; PULSE 63; RESP 22; TEMP 36.7; O2SAT 98
[2022-01-02] MEDS: ONDANSETRON INJ 4 MG/2 ML VIAL IV PUSH (23:06)
[2022-01-02] MEDS: hydrALAZINE HCL 20 MG/ML VIAL 10 MG IV PUSH (23:16)
[2022-01-02 23:22] VITALS: BP 180/120
[2022-01-03 05:31] VITALS: BP 145/100; PULSE 89; RESP 20; TEMP 36.4; O2SAT 97
--- NOTE | 2022-01-03 05:37 | PC.NURSE ---
2100 meds were not given due to pt vomiting 4x after the head of bed was elevated to a 45 degree angle and upper dentures applied by pt; in preparation to take meds. Per day shift report from RN, pt takes meds with jello. Zofran IVP administered and N/V subsided. Will continue rest of meds as scheduled. Pharmacy made aware of replacing 2100 meds.
[2022-01-03 06:35] LABS: Hematocrit 40.4 % (42.0-52.0); Hemoglobin 13.3 g/dL (14.0-18.0); Mean Corpuscular HGB Conc 32.9 g/dl (32-36); Mean Corpuscular Hemoglobin 30.8 pg (26-34); Mean Corpuscular Volume 93.5 fl (80-100); Mean Platelet Volume 10.9 fl (7.4-10.4); Platelet Count Result 235 k/mm3 (150-375); Red Blood Count 4.32 M/mm3 (4.6-6.20); Red Cell Distribution Width 13.2 % (11.5-14.5); White Blood Count 13.1 K/mm3 (4.5-10.0)
[2022-01-03 06:43] LABS: Anion Gap 9 mmol/L (8-16); Blood Urea Nitrogen 22 mg/dL (9-20); Calcium 8.5 mg/dL (8.4-10.2); Carbon Dioxide 24 mmol/L (22-30); Chloride 100 mmol/L (98-107); Estimated CRCL calculation 53 ml/min; Estimated Glomerular Filt Rate > 60; Glucose 114 mg/dL (65-110); Magnesium 1.9 mg/dL (1.6-2.3); Potassium 4.3 mmol/L (3.4-5.0); Sodium 133 mmol/L (137-145)
[2022-01-03] MEDS: IBUPROFEN IV 800 MG/200 ML 800 MG/200 ML BAG 400 MG IVPB ×3 (06:43→17:39)
[2022-01-03] MEDS: ONDANSETRON INJ 4 MG/2 ML VIAL IV PUSH ×4 (09:00→23:41)
--- NOTE | 2022-01-03 09:10 | PM.IMPN ---
Progress Note: A&P Assessment and Plan (1) Small bowel obstruction with strangulation or infarction: Status: Acute Assessment and Plan: CT abd/pelvis suggestive of partial small bowel obstruction. General surgery consulted and appreciate recommendations. Small bowel series with slow transit of contrast out of the stomach after 2 hours and possible closed loop obstruction. 12/30/21 s/p small bowel resection with infarction.? 01/01/22 NG pulled out by patient today. Okay to leave out per surgery. Advanced to clears. Continue lowered dose IV fluids and pain control. Ambulate in the hallway. PT/OT consulted. 01/02/22 No emesis, flatus or BM. Taking in clear liquids without c/o worsening pain. Reinforced ambulating. Patient taking in adequate oral liquids and UOP stable. Saline lock IV fluids. Continue current management. Diet advancement per Surgery. 01/03/2022 patient with N/V with brown bile, Will monitor h/h. (2) Parkinsons disease: Code(s): G20 - Parkinson's disease Status: Chronic Assessment and Plan: Chronic, stable. Continue carbidopa-levodopa ? (3) CKD (chronic kidney disease): Qualifiers: Chronic kidney disease stage: stage 3 (moderate) Chronic kidney disease stage 3 subtype: stage 3a (GFR 45-59) Qualified Code(s): N18.31 - Chronic kidney disease, stage 3a Code(s): N18.9 - Chronic kidney disease, unspecified Status: Chronic Assessment and Plan: BUN 22, creatinine 0.90, GFR >60. Chronic, stable. Avoid nephrotoxic agents and dehydration. Monitor I/O. (4) Prostate CA: Code(s): C61 - Malignant neoplasm of prostate Status: Chronic (5) Hypertension: Qualifiers: Hypertension type: primary hypertension Qualified Code(s): I10 - Essential (primary) hypertension Code(s): I10 - Essential (primary) hypertension Status: Chronic Assessment and Plan: Chronic, stable. BP 144-170/87-98, likely elevated secondary to pain and NPO status. Monitor vital signs and adjust medications as needed. 01/01/22 resume home medications. 01/02/22 Stop IV fluids. Continue metoprolol. Add PRN IV hydralazine SBP>160 or DBP>100 01/03/2022 145/100 continue prn hyralazine (6) Hyperlipidemia: Code(s): E78.5 - Hyperlipidemia, unspecified Status: Acute (7) Asymptomatic bacteriuria: Code(s): R82.71 - Bacteriuria Status: Resolved Assessment and Plan: UA with +WBC, no nitrates or leukocytes. Rare epi cells. WBC 12.7. Stared on Rocephin 1 gram Q24 hour, first dose given 12/30/21 12/31/21 urine culture with mixed stalin. WBC 11. Will stop antibiotics at this time and monitor. Trend CBC and temperature curve 01/01/22 asymptomatic. Subjective Date/time seen: 01/03/22 09:10 Review of Systems Review of Systems: A 14 organ system Review of Systems was performed and pertinent positives included in the HPI, otherwise remaining ROS is negative. Exam Narrative: GENERAL: This is a well-nourished, well-developed patient, in no apparent distress. HEAD: normocephalic, atraumatic. EYES: PERRL. Sclera clear/white. Vision is grossly intact. EARS: External ears normal, auditory canals clear and without drainage, TMs normal without perforation. Hearing grossly intact. NOSE: External nose normal with no obvious nasal discharge, nares without redness, no rhinorrhea. THROAT: Mucous membranes moist, posterior pharynx clear. NECK: Neck supple, non-tender without lymphadenopathy, masses or thyromegaly. CARDIOVASCULAR: Regular rate and rhythm without murmurs, gallops, or rubs. RESPIRATORY: Clear to auscultation. Breath sounds equal bilaterally. No wheezes, rales, or rhonchi. GASTROINTESTINAL: Abdomen soft, tender, nondistended. Bowel sounds hypoactive No hepato-splenomegaly, or palpable masses. No guarding, surgical site with dressing that is clean dry and intact. SKIN: warm, intact with no suspicious lesions or rash, good texture and
--- NOTE | 2022-01-03 11:36 | PCSTNOTE ---
Patient unable to swallow first bolus (thin consistency barium by spoon). Tactile and verbal cues utilized but not effective. Patient is at high risk of aspiration. NPO recommended. Thank you for the referral of this patient.
[2022-01-03 14:00] VITALS: BP 139/112; PULSE 100; RESP 15; TEMP 36.4; O2SAT 97
[2022-01-03] MEDS: hydrALAZINE HCL 20 MG/ML VIAL 10 MG IV PUSH (14:07)
--- NOTE | 2022-01-03 15:14 | PM.PNGS ---
Progress Note: A&P Assessment and Plan (1) Small bowel obstruction with strangulation or infarction: Status: Acute Assessment and Plan: Patient had multiple episodes of emesis. Will get KUB this afternoon. Might need to consider replacement of NG tube if vomiting continues. stimulate bowels with Dulcolax suppository. We will resume IV fluids patient is NPO. (2) Parkinsons disease: Code(s): G20 - Parkinson's disease Status: Chronic Assessment and Plan: Receiving home meds (3) CKD (chronic kidney disease): Qualifiers: Chronic kidney disease stage: stage 3 (moderate) Chronic kidney disease stage 3 subtype: stage 3a (GFR 45-59) Qualified Code(s): N18.31 - Chronic kidney disease, stage 3a Code(s): N18.9 - Chronic kidney disease, unspecified Status: Chronic (4) Prostate CA: Code(s): C61 - Malignant neoplasm of prostate Status: Chronic Subjective Subjective Date/Time Seen: 01/03/22 15:14 Interval history: Patient vomited multiple times. He states he is passing little bit of flatus. No bowel movement. Denies any current nausea. No more hiccups. Exam GI: Inspection: non-distended and incision ( Intact with montse) GI Palp: Yes Soft to palpation, No Tenderness to palpation present (GI) and No Guarding due to palpation present (GI) Auscultation: Hypoactive bowel sounds present Objective Data Vital Signs Vital Signs: Vital Signs - 24 hr 01/02/22 16:00 01/02/22 22:00 01/02/22 23:22 Temperature 36.6 C 36.7 C Pulse Rate 70 63 Respiratory Rate 16 22 H Blood Pressure 123/76 168/105 H 180/120 H Pulse Oximetry 97 98 Oxygen Delivery 01/02/22 20:00 01/03/22 05:31 01/03/22 08:15 Temperature 36.4 C Pulse Rate 89 Respiratory Rate 20 Blood Pressure 145/100 H Pulse Oximetry 97 Oxygen Delivery Room Air Room Air 01/03/22 14:00 Temperature 36.4 C Pulse Rate 100 Respiratory Rate 15 Blood Pressure 139/112 H Pulse Oximetry 97 Oxygen Delivery Intake/Output Intake/Output: Intake & Output 12/31/21 01/01/22 01/02/22 01/03/22 23:59 23:59 23:59 23:59 Intake Total 1630 4740 3350 400 Output Total 100 4245 923 9002 Balance 1530 3950 8440 -543 Meds/Results Medications: Active Medications Generic Name Dose Route Start Last Admin Trade Name Freq PRN Reason Stop Dose Admin Acetaminophen 500 mg 01/01/22 09:32 Acetaminophen 500 Mg Tablet PO Q6H PRN Mild Pain (1-3) or Fever Hydrocodone Bitart/Acetaminophen 1 tab 01/01/22 09:32 Hydrocodone/Acetaminophen (*Crx) 5-325 Mg Tablet PO Q4H PRN Pain Rated 7-10 Carbidopa/Levodopa 3 tablet 01/01/22 17:00 01/03/22 13:00 Carbidopa/Levodopa 25/100 Mg Tablet PO Not Given QID [facility] Enoxaparin Sodium 40 mg 12/30/21 09:00 01/03/22 09:56 Enoxaparin 40 Mg/0.4 Ml Syringe SUB-Q Not Given DAILY [facility] Fentanyl Citrate 25 mcg 12/30/21 17:35 Fentanyl Citrate Inj (*Crx) 100 Mcg/2 Ml Vial IV PUSH Q2H PRN Pain Rated 7-10 Fentanyl Citrate 12.5 mcg 12/30/21 17:35 Fentanyl Citrate Inj (*Crx) 100 Mcg/2 Ml Vial IV PUSH Q2H PRN Pain Rated 4-6 Hydralazine HCl 10 mg 01/02/22 16:08 01/03/22 14:07 Hydralazine Hcl 20 Mg/Ml Vial IV PUSH 10 mg Q6HR PRN Administration Blood Pressure - High Ibuprofen 800 mg in 200 mls @ 400 mls/hr 12/30/21 18:00 01/03/22 12:11 Caldolor 800 Mg/200 Ml IVPB Infused Q6HR [facility] Infusion Ibuprofen 800 mg in 200 mls @ 400 mls/hr 01/01/22 09:32 Caldolor 800 Mg/200 Ml IVPB Q6H PRN Pain Rated 1-3 Metoprolol Succinate 25 mg 01/01/22 09:00 01/03/22 09:55 Metoprolol Succinate Ext Rel 25 Mg Tabcr BY MOUTH Not Given DAILY [facility] Ondansetron HCl 4 mg 12/29/21 21:15 01/03/22 12:54 Ondansetron Inj 4 Mg/2 Ml Vial IV PUSH 4 mg Q4H PRN Administration Nausea Pantoprazole Sodium 40 mg 01/02/22 09:00 01/03/22 09:55 Pantoprazole 40 Mg T
[2022-01-03] MEDS: SODIUM CHLORIDE 0.9% IV 1,000 ML 100 ML IV CONT (17:39)
[2022-01-03] MEDS: BISACODYL 10 MG SUPPOSITORY RECTAL (17:40)
[2022-01-03 21:40] VITALS: BP 136/87; PULSE 108; RESP 26; TEMP 36.3; O2SAT 96
[2022-01-03] MEDS: rOPINIRole HCL 1 MG TABLET PO (22:19)
[2022-01-03] MEDS: SIMETHICONE 80 MG TAB.CHEW PO (22:19)
[2022-01-03] MEDS: rOPINIRole HCL 0.5 MG TABLET PO (22:20)
[2022-01-04] MEDS: IBUPROFEN IV 800 MG/200 ML 800 MG/200 ML BAG 400 MG IVPB ×4 (00:29→18:02)
[2022-01-04] MEDS: SODIUM CHLORIDE 0.9% IV 1,000 ML 100 ML IV CONT (05:55)
[2022-01-04] MEDS: ONDANSETRON INJ 4 MG/2 ML VIAL IV PUSH ×3 (05:56→21:52)
[2022-01-04] MEDS: hydrALAZINE HCL 20 MG/ML VIAL 10 MG IV PUSH (05:56)
[2022-01-04 06:00] VITALS: BP 145/108; PULSE 105; RESP 18; TEMP 36.2; O2SAT 96
[2022-01-04 07:42] LABS: Hematocrit 39.4 % (42.0-52.0); Hemoglobin 13.2 g/dL (14.0-18.0); Mean Corpuscular HGB Conc 33.5 g/dl (32-36); Mean Corpuscular Hemoglobin 30.6 pg (26-34); Mean Corpuscular Volume 91.2 fl (80-100); Mean Platelet Volume 10.6 fl (7.4-10.4); Platelet Count Result 273 k/mm3 (150-375); Red Blood Count 4.32 M/mm3 (4.6-6.20); Red Cell Distribution Width 13.3 % (11.5-14.5); White Blood Count 15.3 K/mm3 (4.5-10.0)
[2022-01-04 07:53] LABS: Alanine Aminotransferase 11 U/L (6-50); Albumin Level 3.8 g/dL (3.5-5.1); Alkaline Phosphatase 58 U/L (38-126); Anion Gap 15 mmol/L (8-16); Aspartate Amino Transferase 23 U/L (17-59); Bilirubin,Total 0.6 mg/dL (0.2-1.3); Blood Urea Nitrogen 35 mg/dL (9-20); Calcium 8.6 mg/dL (8.4-10.2); Carbon Dioxide 25 mmol/L (22-30); Chloride 99 mmol/L (98-107); Estimated CRCL calculation 35 ml/min; Estimated Glomerular Filt Rate 49; Glucose 125 mg/dL (65-110); Magnesium 2.1 mg/dL (1.6-2.3); Potassium 3.7 mmol/L (3.4-5.0); Sodium 139 mmol/L (137-145)
[2022-01-04] MEDS: ENOXAPARIN 40 MG/0.4 ML SYRINGE SUB-Q (09:13)
--- NOTE | 2022-01-04 10:11 | PM.PNGS ---
Progress Note: A&P Assessment and Plan (1) Small bowel obstruction with strangulation or infarction: Status: Acute Assessment and Plan: KUB yesterday showed dilated small bowel suggesting ileus versus obstruction. More episodes of vomiting this morning. Still no flatus or BMs. Will order an NG tube and keep NPO. Will also place a PICC line and start TPN for nutrition. Continue PT/OT for increasing activity as tolerated. (2) Parkinsons disease: Code(s): G20 - Parkinson's disease Status: Chronic Assessment and Plan: Has not been receiving his medications due to the vomiting/NPO status and now he has failed his modified Barium swallow. Could eventually use the NG tube for medication administration. (3) CKD (chronic kidney disease): Qualifiers: Chronic kidney disease stage: stage 3 (moderate) Chronic kidney disease stage 3 subtype: stage 3a (GFR 45-59) Qualified Code(s): N18.31 - Chronic kidney disease, stage 3a Code(s): N18.9 - Chronic kidney disease, unspecified Status: Chronic (4) Prostate CA: Code(s): C61 - Malignant neoplasm of prostate Status: Chronic Plan I have discussed the patient's case and plan of care with Dr. Henriquez. Subjective Subjective Date/Time Seen: 01/04/22 10:11 Post Op day: 5 (Small-bowel resection with anastomosis) Patient reports: no flatus, no bowel movement, nausea and vomiting Interval history: Chart reviewed since last seen. Patient seen and examined. Multiple episodes of vomiting yesterday. Patient has had at least 2 episodes of vomiting just in the last hour this morning. He is feeling bloated. He denies any abdominal pain. He actually vomited bilious-appearing emesis during my exam. No flatus or BMs. Review of Systems Review of Systems: All systems reviewed & are unremarkable except as noted in HPI and below Exam Const: General: awake and uncomfortable Orientation/consciousness: patient oriented x3 GI: Inspection: distended and incision ( dry and intact with montse, no erythema) GI Palp: Yes Soft to palpation, No Tenderness to palpation present (GI) and No Guarding due to palpation present (GI) Auscultation: Hypoactive bowel sounds present Neuro: General: moves all extremities and no focal motor deficits Extrem: General: no calf tenderness and no edema Psych: Mental Status: mental status grossly normal Objective Data Vital Signs Vital Signs: Vital Signs - 24 hr 01/03/22 14:00 01/03/22 21:40 01/03/22 20:00 Temperature 97.6 F 97.4 F L Pulse Rate 100 108 H Respiratory Rate 15 26 H Blood Pressure 139/112 H 136/87 Pulse Oximetry 97 96 Oxygen Delivery Room Air 01/04/22 06:00 Temperature 97.1 F L Pulse Rate 105 H Respiratory Rate 18 Blood Pressure 145/108 H Pulse Oximetry 96 Oxygen Delivery Intake/Output Intake/Output: Intake & Output 01/01/22 01/02/22 01/03/22 01/04/22 23:59 23:59 23:59 23:59 Intake Total 4740 3350 1600 1200 Output Total 8445 425 0510 200 Balance 3690 3050 550 1000 Meds/Results Medications: Active Medications Generic Name Dose Route Start Last Admin Trade Name Freq PRN Reason Stop Dose Admin Acetaminophen 500 mg 01/01/22 09:32 Acetaminophen 500 Mg Tablet PO Q6H PRN Mild Pain (1-3) or Fever Hydrocodone Bitart/Acetaminophen 1 tab 01/01/22 09:32 Hydrocodone/Acetaminophen (*Crx) 5-325 Mg Tablet PO Q4H PRN Pain Rated 7-10 Carbidopa/Levodopa 3 tablet 01/01/22 17:00 01/04/22 09:39 Carbidopa/Levodopa 25/100 Mg Tablet PO Not Given QID [facility] Enoxaparin Sodium 40 mg 12/30/21 09:00 01/04/22 09:13 Enoxaparin 40 Mg/0.4 Ml Syringe SUB-Q 40 mg DAILY [facility] Administration Fentanyl Citrate 25 mcg 12/30/21 17:35 Fentanyl Citrate Inj (*Crx) 100 Mcg/2 Ml Vial IV PUSH Q2H PRN Pain Rated 7-10 Fentanyl Citrate 12.5 mcg 12/30/21 17:35 Fentanyl Citrate Inj (*Crx) 100 Mcg/2 Ml Vial IV PUSH
--- NOTE | 2022-01-04 10:15 | PCPTNOTE ---
The patient treatment was not able to be completed this morning due to increased nausea and vomiting. Will plan to continue treatment per plan of care.
--- NOTE | 2022-01-04 12:45 | PM.IMPN ---
Progress Note: A&P Assessment and Plan (1) Small bowel obstruction with strangulation or infarction: Status: Acute Assessment and Plan: CT abd/pelvis suggestive of partial small bowel obstruction. General surgery consulted and appreciate recommendations. Small bowel series with slow transit of contrast out of the stomach after 2 hours and possible closed loop obstruction. 12/30/21 s/p small bowel resection with infarction.? 01/01/22 NG pulled out by patient today. Okay to leave out per surgery. Advanced to clears. Continue lowered dose IV fluids and pain control. Ambulate in the hallway. PT/OT consulted. 01/02/22 No emesis, flatus or BM. Taking in clear liquids without c/o worsening pain. Reinforced ambulating. Patient taking in adequate oral liquids and UOP stable. Saline lock IV fluids. Continue current management. Diet advancement per Surgery. 01/03/2022 patient with N/V with brown bile, Will monitor h/h. 01/04/22: patient to have NG tube placed secondary to physical exam today demonstrating no bowel sounds, but continued nausea and vomiting. Discussed with General surgery and they ordered PICC line placement for TPN initiation as well as NG. It should be noted the patient also failed his modified barium swallow yesterday with a definite abnormal finger NG will state of swallowing placing him at high risk for aspiration. (2) Parkinsons disease: Code(s): G20 - Parkinson's disease Status: Chronic Assessment and Plan: Chronic, stable. Continue carbidopa-levodopa ? 01/04/22: Continue current therapy. (3) CKD (chronic kidney disease): Qualifiers: Chronic kidney disease stage: stage 3 (moderate) Chronic kidney disease stage 3 subtype: stage 3a (GFR 45-59) Qualified Code(s): N18.31 - Chronic kidney disease, stage 3a Code(s): N18.9 - Chronic kidney disease, unspecified Status: Chronic Assessment and Plan: BUN 22, creatinine 0.90, GFR >60. Chronic, stable. Avoid nephrotoxic agents and dehydration. Monitor I/O. 01/04/22: Creatinine today is in increased to 1.4. BUN is 35. Suspect mild dehydration. Will restart IV fluids NS at 100 ml/hr. Surgery managing (4) Prostate CA: Code(s): C61 - Malignant neoplasm of prostate Status: Chronic (5) Hypertension: Qualifiers: Hypertension type: primary hypertension Qualified Code(s): I10 - Essential (primary) hypertension Code(s): I10 - Essential (primary) hypertension Status: Chronic Assessment and Plan: Chronic, stable. BP 144-170/87-98, likely elevated secondary to pain and NPO status. Monitor vital signs and adjust medications as needed. 01/01/22 resume home medications. 01/02/22 Stop IV fluids. Continue metoprolol. Add PRN IV hydralazine SBP>160 or DBP>100 01/03/2022 145/100 continue prn hyralazine 01/04/22: Stable currently. (6) Hyperlipidemia: Code(s): E78.5 - Hyperlipidemia, unspecified Status: Acute Assessment and Plan: 01/04/22: Continue statin therapy. (7) Asymptomatic bacteriuria: Code(s): R82.71 - Bacteriuria Status: Resolved Assessment and Plan: UA with +WBC, no nitrates or leukocytes. Rare epi cells. WBC 12.7. Stared on Rocephin 1 gram Q24 hour, first dose given 12/30/21 12/31/21 urine culture with mixed stalin. WBC 11. Will stop antibiotics at this time and monitor. Trend CBC and temperature curve 01/01/22 asymptomatic. 01/04/22: Remains asymptomatic. Time Spent With Patient Time with patient: 15 - 25 minutes Subjective Date/time seen: 01/04/22 0944 This pt. was examined at the bedside today in interval assessment. He continues to have N/V, no passing of flatus overnight.. He had just vomited upon my entry into the room. He has no overt complaints of pain. I discussed with [facility] and they are ordering an NG tube, PICC for TPN. Imaging yesterday was more favorable of ileus vs. obstruction. He has no other complaints
[2022-01-04 12:48] VITALS: BMI 27.5
[2022-01-04] MEDS: CARBIDOPA/LEVODOPA 25/100 MG TABLET 3 TABLET PO ×3 (12:51→21:20)
[2022-01-04] MEDS: rOPINIRole HCL 1 MG TABLET PO ×3 (12:52→21:20)
[2022-01-04] MEDS: rOPINIRole HCL 0.5 MG TABLET PO ×3 (12:52→21:21)
--- NOTE | 2022-01-04 12:56 | PCOTNOTE ---
Attempted to see patient twice this date. First attempt, per PT, patient was having increased nausea and vomiting. Second attempt, patient was being taken off floor for testing.
[2022-01-04 13:36] VITALS: BMI 27.5
[2022-01-04 14:00] VITALS: BP 119/85; PULSE 101; RESP 24; TEMP 36.2; O2SAT 97
--- NOTE | 2022-01-04 15:03 | PCPTNOTE ---
The patient treatment was not able to be completed due to patient having PIC Line procedure bedside. Will plan to continue treatment per plan of care.
[2022-01-04 16:35] VITALS: BP 119/85; PULSE 101; RESP 24; TEMP 36.2; O2SAT 97
[2022-01-04] MEDS: AMINO ACIDS 5%/D15W/E-LYTES/CA 2,000 ML with MULTIVITAMINS-12 INJ VIAL 1 2.5 ML, MULTIV... 40 ML IV CONT (17:32)
[2022-01-04] MEDS: FAT EMULSIONS IV 20% 250 ML 20 ML IVPB (17:33)
[2022-01-04] MEDS: POTASSIUM CHLORIDE 20 MEQ TABLET.ER 40 MEQ PO (17:59)
[2022-01-04 18:57] LABS: Glucose Point of Care 90 mg/dl (65-105)
[2022-01-04] MEDS: SIMETHICONE 80 MG TAB.CHEW PO (21:20)
[2022-01-04] MEDS: CENTRAL LINE FLUSH 10 ML IV PUSH (21:21)
[2022-01-04 22:00] VITALS: BP 133/84; PULSE 93; RESP 18; TEMP 36.2; O2SAT 95
[2022-01-05] MEDS: SODIUM CHLORIDE 0.9% IV 1,000 ML 100 ML IV CONT (01:46)
[2022-01-05] MEDS: IBUPROFEN IV 800 MG/200 ML 800 MG/200 ML BAG 400 MG IVPB ×3 (02:02→17:02)
[2022-01-05] MEDS: CENTRAL LINE FLUSH 20 ML IV PUSH (03:47)
[2022-01-05 04:18] LABS: Anion Gap 5 mmol/L (8-16); Blood Urea Nitrogen 40 mg/dL (9-20); Calcium 7.8 mg/dL (8.4-10.2); Carbon Dioxide 28 mmol/L (22-30); Chloride 103 mmol/L (98-107); Estimated CRCL calculation 37 ml/min; Estimated Glomerular Filt Rate 53; Glucose 121 mg/dL (65-110); Phosphorus 3.2 mg/dL (2.5-4.5); Potassium 3.4 mmol/L (3.4-5.0); Sodium 136 mmol/L (137-145)
[2022-01-05 04:25] LABS: Transferrin 106 mg/dL (206-381)
[2022-01-05 06:00] VITALS: BP 160/82; PULSE 72; RESP 14; TEMP 36.2; O2SAT 97
--- NOTE | 2022-01-05 11:14 | PC.NURSE ---
To Radiology per stretcher at [phone].
--- NOTE | 2022-01-05 11:15 | PM.IMPN ---
Progress Note: A&P Assessment and Plan (1) Small bowel obstruction with strangulation or infarction: Status: Acute Assessment and Plan: CT abd/pelvis suggestive of partial small bowel obstruction. General surgery consulted and appreciate recommendations. Small bowel series with slow transit of contrast out of the stomach after 2 hours and possible closed loop obstruction. 12/30/21 s/p small bowel resection with infarction.? 01/01/22 NG pulled out by patient today. Okay to leave out per surgery. Advanced to clears. Continue lowered dose IV fluids and pain control. Ambulate in the hallway. PT/OT consulted. 01/02/22 No emesis, flatus or BM. Taking in clear liquids without c/o worsening pain. Reinforced ambulating. Patient taking in adequate oral liquids and UOP stable. Saline lock IV fluids. Continue current management. Diet advancement per Surgery. 01/03/2022 patient with N/V with brown bile, Will monitor h/h. 01/04/22: patient to have NG tube placed secondary to physical exam today demonstrating no bowel sounds, but continued nausea and vomiting. Discussed with General surgery and they ordered PICC line placement for TPN initiation as well as NG. It should be noted the patient also failed his modified barium swallow yesterday with a definite abnormal finger NG will state of swallowing placing him at high risk for aspiration. 01/05/[address], no bowel sounds, TPN running, small bowel xray is pending (2) Parkinsons disease: Code(s): G20 - Parkinson's disease Status: Chronic Assessment and Plan: Chronic, stable. Continue carbidopa-levodopa ? 01/04/22: Continue current therapy. 01/05/22 Stable (3) CKD (chronic kidney disease): Qualifiers: Chronic kidney disease stage: stage 3 (moderate) Chronic kidney disease stage 3 subtype: stage 3a (GFR 45-59) Qualified Code(s): N18.31 - Chronic kidney disease, stage 3a Code(s): N18.9 - Chronic kidney disease, unspecified Status: Chronic Assessment and Plan: BUN 22, creatinine 0.90, GFR >60. Chronic, stable. Avoid nephrotoxic agents and dehydration. Monitor I/O. 01/04/22: Creatinine today is in increased to 1.4. BUN is 35. Suspect mild dehydration. Will restart IV fluids NS at 100 ml/hr. Surgery managing 01/05/22 stable with BUN/Cr 17/0.60 (4) Prostate CA: Code(s): C61 - Malignant neoplasm of prostate Status: Chronic Assessment and Plan: Will need some outpatient follow up Will need to wait for some other problems to resolve (5) Hypertension: Qualifiers: Hypertension type: primary hypertension Qualified Code(s): I10 - Essential (primary) hypertension Code(s): I10 - Essential (primary) hypertension Status: Chronic Assessment and Plan: Chronic, stable. BP 144-170/87-98, likely elevated secondary to pain and NPO status. Monitor vital signs and adjust medications as needed. 01/01/22 resume home medications. 01/02/22 Stop IV fluids. Continue metoprolol. Add PRN IV hydralazine SBP>160 or DBP>100 01/03/2022 145/100 continue prn hyralazine 01/04/22: Stable currently. 01/05/22 slightly elevated probably related to pain and current illness (6) Hyperlipidemia: Code(s): E78.5 - Hyperlipidemia, unspecified Status: Acute Assessment and Plan: 01/04/22: Continue statin therapy. (7) Asymptomatic bacteriuria: Code(s): R82.71 - Bacteriuria Status: Resolved Assessment and Plan: UA with +WBC, no nitrates or leukocytes. Rare epi cells. WBC 12.7. Stared on Rocephin 1 gram Q24 hour, first dose given 12/30/21 12/31/21 urine culture with mixed stalin. WBC 11. Will stop antibiotics at this time and monitor. Trend CBC and temperature curve 01/01/22 asymptomatic. 01/04/22: Remains asymptomatic. 01/05/22 culture shows contamination, probably resolved at this point Time Spent Wi
--- NOTE | 2022-01-05 11:17 | PC.NURSE ---
Return from Radiology per stretcher at 1117.
[2022-01-05 11:33] LABS: Glucose Point of Care 113 mg/dl (65-105)
[2022-01-05] MEDS: ENOXAPARIN 40 MG/0.4 ML SYRINGE SUB-Q (12:28)
--- NOTE | 2022-01-05 12:48 | PM.PNGS ---
Progress Note: A&P Assessment and Plan (1) Small bowel obstruction with strangulation or infarction: Status: Acute Assessment and Plan: CT yesterday showed free intraperitoneal gas that appears to be related to the recent surgery, and also findings suggestive of an ileus. We ordered a Gastrografin small bowel follow through today, will await results Continue NG tube, NPO, TPN, and IV fluids PT/OT following, encourage to increase activity as tolerated (2) Parkinsons disease: Code(s): G20 - Parkinson's disease Status: Chronic Assessment and Plan: Oral medication currently on hold (3) CKD (chronic kidney disease): Qualifiers: Chronic kidney disease stage: stage 3 (moderate) Chronic kidney disease stage 3 subtype: stage 3a (GFR 45-59) Qualified Code(s): N18.31 - Chronic kidney disease, stage 3a Code(s): N18.9 - Chronic kidney disease, unspecified Status: Chronic (4) Prostate CA: Code(s): C61 - Malignant neoplasm of prostate Status: Chronic Plan I have discussed the patient's case and plan of care with Dr. Henriquez. Subjective Subjective Date/Time Seen: 01/05/22 10:48 Post Op day: 6 (Small bowel resection) Patient reports: no new complaints, flatus (lots of flatus today), no bowel movement and afebrile Interval history: Patient seen and examined. Denies any abdominal pain. His NG is currently clamped with the gastrografin SBFT. He denies any nausea at this time. Review of Systems Review of Systems: All systems reviewed & are unremarkable except as noted in HPI and below Exam Const: General: no acute distress and awake Orientation/consciousness: patient oriented x3 GI: Inspection: distended and incision ( dry and intact with montse, no erythema) GI Palp: Yes Soft to palpation, No Tenderness to palpation present (GI), No Guarding due to palpation present (GI) and No Rebound tenderness present Auscultation: Hypoactive bowel sounds present Neuro: General: moves all extremities and no focal motor deficits Extrem: General: no calf tenderness and no edema Psych: Mental Status: mental status grossly normal Objective Data Vital Signs Vital Signs: Vital Signs - 24 hr 01/04/22 14:00 01/04/22 16:35 01/04/22 22:00 Temperature 97.2 F L 97.2 F L 97.2 F L Pulse Rate 101 H 101 H 93 Respiratory Rate 24 H 24 H 18 Blood Pressure 119/85 119/85 133/84 Pulse Oximetry 97 97 95 Oxygen Delivery Room Air 01/05/22 06:00 01/04/22 20:00 Temperature 97.2 F L Pulse Rate 72 Respiratory Rate 14 Blood Pressure 160/82 H Pulse Oximetry 97 Oxygen Delivery Room Air Intake/Output Intake/Output: Intake & Output 01/02/22 01/03/22 01/04/22 01/05/22 23:59 23:59 23:59 23:59 Intake Total 3350 1600 2800 420 Output Total 300 1050 2500 750 Balance 3050 550 300 -330 Meds/Results Medications: Active Medications Generic Name Dose Route Start Last Admin Trade Name Freq PRN Reason Stop Dose Admin Acetaminophen 500 mg 01/01/22 09:32 Acetaminophen 500 Mg Tablet PO Q6H PRN Mild Pain (1-3) or Fever Hydrocodone Bitart/Acetaminophen 1 tab 01/01/22 09:32 Hydrocodone/Acetaminophen (*Crx) 5-325 Mg Tablet PO Q4H PRN Pain Rated 7-10 Carbidopa/Levodopa 3 tablet 01/01/22 17:00 01/05/22 11:21 Carbidopa/Levodopa 25/100 Mg Tablet PO Not Given QID MARIANA Enoxaparin Sodium 40 mg 12/30/21 09:00 01/05/22 12:28 Enoxaparin 40 Mg/0.4 Ml Syringe SUB-Q 40 mg DAILY MARIANA Administration Fentanyl Citrate 25 mcg 12/30/21 17:35 Fentanyl Citrate Inj (*Crx) 100 Mcg/2 Ml Vial IV PUSH Q2H PRN Pain Rated 7-10 Fentanyl Citrate 12.5 mcg 12/30/21 17:35 Fentanyl Citrate Inj (*Crx) 100 Mcg/2 Ml Vial IV PUSH Q2H PRN Pain Rated 4-6 Hydralazine HCl 10 mg 01/02/22 16:08 01/04/22 05:56 Hydralazine Hcl 20 Mg/Ml Vial IV PUSH 10 mg Q6HR PRN Administration Blood Pressure - High Ibupr
[2022-01-05 12:57] LABS: Basophils Percent Auto 0.1 % (0.2-1.2); Eosinophils Percent Auto 0.2 % (0-4.4); Hematocrit 35.3 % (42.0-52.0); Hemoglobin 11.6 g/dL (14.0-18.0); Immature Granulocyte Absolute 0.03 K/mm3 (0.00-0.031); Immature Granulocyte Percent A 0.4 % (0-0.5); Lymphocytes Absolute Auto 0.29 K/mm3 (0.9-3.2); Lymphocytes Percent Auto 3.6 % (18.3-44.2); Mean Corpuscular HGB Conc 32.9 g/dl (32-36); Mean Corpuscular Hemoglobin 31.1 pg (26-34); Mean Corpuscular Volume 94.6 fl (80-100); Mean Platelet Volume 10.4 fl (7.4-10.4); Monocytes Absolute Auto 0.6 K/mm3 (0.1-0.6); Neutrophils Percent Auto 87.7 % (45.5-73.1); Platelet Count Result 200 k/mm3 (150-375); Red Blood Count 3.73 M/mm3 (4.6-6.20); Red Cell Distribution Width 13.8 % (11.5-14.5)
--- NOTE | 2022-01-05 13:05 | PCNFU ---
Nutrition Follow-Up Complete: Severe malnutrition related to ileus vs small bowel obstruction, as evidenced by weight loss 11%/6 months, severe muscle wasting, and need for parenteral nutrition. Goal:Tolerate TPN at goal rate Advance to PO intake as medically able Pt current nutrition is TPN 07/19 @ 40ml/hr, goal rate of 60ml/hr. Nutrition recommendation: continue to goal rate Last recorded weight is 71.5 kg. Bowel Motility: +BM 01/03 Labs Reviewed: Na:136, GFR:53, BUN:40 Meds Noted: lovenox, zofran, miralax, KCL Skin: WNL Additional Notes: Pt continues on TPN with lipids running at 40ml/hr and providing 1182kcals, 48g protein. Recommendation is to increase to 60ml/hr to provide 1522kcals, 72g protein to better meet needs. Monitoring labs, intakes, weights, diet advancement, plan of care. Follow up Tuesdays and Fridays per policy
[2022-01-05 14:00] VITALS: BP 140/89; PULSE 97; RESP 20; TEMP 36.3; O2SAT 97
[2022-01-05 14:36] LABS: Triglycerides 82 mg/dL (<150)
--- NOTE | 2022-01-05 15:37 | PCPTNOTE ---
PT attempted to see patient 2x today however patient was out of room in A.M. for x-ray and with OT in P.M.. PT will continue to follow per plan of care.
[2022-01-05] MEDS: CENTRAL LINE FLUSH 10 ML IV PUSH ×2 (16:53→21:10)
[2022-01-05] MEDS: AMINO ACIDS 5%/D15W/E-LYTES/CA 2,000 ML with MULTIVITAMINS-12 INJ VIAL 1 2.5 ML, MULTIV... 50 ML IV CONT (16:53)
[2022-01-05] MEDS: FAT EMULSIONS IV 20% 250 ML 20 ML IVPB (16:54)
[2022-01-05 19:01] LABS: Glucose Point of Care 121 mg/dl (65-105)
[2022-01-05 21:10] VITALS: PULSE 94
[2022-01-05] MEDS: PANTOPRAZOLE SODIUM IV 40 MG VIAL IV PUSH (21:10)
[2022-01-05] MEDS: METOPROLOL TARTRATE INJ 5 MG/5 ML VIAL IV PUSH (21:10)
[2022-01-05 22:00] VITALS: BP 146/94; PULSE 94; RESP 17; TEMP 36.3; O2SAT 97
[2022-01-06] MEDS: IBUPROFEN IV 800 MG/200 ML 800 MG/200 ML BAG 400 MG IVPB ×5 (00:01→23:25)
[2022-01-06] MEDS: SODIUM CHLORIDE 0.9% IV 1,000 ML 60 ML IV CONT (00:02)
[2022-01-06 00:15] LABS: Glucose Point of Care 112 mg/dl (65-105)
[2022-01-06] MEDS: CENTRAL LINE FLUSH 10 ML IV PUSH ×3 (05:08→20:23)
[2022-01-06] MEDS: CENTRAL LINE FLUSH 20 ML IV PUSH (05:08)
[2022-01-06 05:17] LABS: Glucose Point of Care 126 mg/dl (65-105)
[2022-01-06 05:22] LABS: Hematocrit 32.8 % (42.0-52.0); Hemoglobin 10.6 g/dL (14.0-18.0); Mean Corpuscular HGB Conc 32.3 g/dl (32-36); Mean Corpuscular Hemoglobin 30.5 pg (26-34); Mean Corpuscular Volume 94.5 fl (80-100); Mean Platelet Volume 10.2 fl (7.4-10.4); Platelet Count Result 183 k/mm3 (150-375); Red Blood Count 3.47 M/mm3 (4.6-6.20); Red Cell Distribution Width 13.6 % (11.5-14.5); White Blood Count 8.3 K/mm3 (4.5-10.0)
[2022-01-06 05:52] LABS: Band Neutrophils Percent 28 % (0-6); Eosinophils Absolute Manual 0.08 K/mm3 (0.02-0.5); Eosinophils Percent Manual 1 % (0-4); Lymphocytes Absolute Manual 0.49 K/mm3 (1.1-4.5); Metamyelocytes Percent 1 %; Monocytes Absolute Manual 0.08 K/mm3 (0.1-0.90); Monocytes Percent Manual 1 % (3-9); Myelocytes Percent 1 %; Neutrophils Absolute Manual 7.47 K/mm3 (1.3-6.7); Neutrophils Percent Manual 62 % (46-73); Total Cells Counted 100
[2022-01-06 05:53] LABS: Anisocytosis 1+ (NORMAL); Microcytosis 1+ (NORMAL); Poikilocytosis 1+ (NORMAL); Schistocytes None Seen (NORMAL)
[2022-01-06 05:54] LABS: Atypical Lymphocytes Present; Burr Cells 1+ (NORMAL); Smudge Cells FEW
[2022-01-06 06:00] VITALS: BP 132/79; PULSE 83; RESP 18; TEMP 36.1; O2SAT 98
[2022-01-06 06:02] LABS: Anion Gap 8 mmol/L (8-16); Blood Urea Nitrogen 34 mg/dL (9-20); Calcium 7.7 mg/dL (8.4-10.2); Carbon Dioxide 32 mmol/L (22-30); Chloride 101 mmol/L (98-107); Estimated CRCL calculation 48 ml/min; Estimated Glomerular Filt Rate > 60; Glucose 115 mg/dL (65-110); Phosphorus 3.1 mg/dL (2.5-4.5); Potassium 2.6 mmol/L (3.4-5.0); Sodium 141 mmol/L (137-145)
[2022-01-06] MEDS: POTASSIUM CHLORIDE INJ 40 MEQ in SODIUM CHLORIDE 0.9% IV 500 ML 130 MEQ IVPB ×2 (06:44→18:30)
--- NOTE | 2022-01-06 08:58 | PM.PNGS ---
Progress Note: A&P Assessment and Plan (1) Small bowel obstruction with strangulation or infarction: Status: Acute Assessment and Plan: Large volume of NG output yesterday and patient looks better today. Nearly 3500 cc out of the NG last 24 hours. Films look better as well. Potassium has decreased to 2.6 and is being supplemented. Continue NG suction serial exam labs and plain films. (2) Adynamic ileus: Code(s): K56.0 - Paralytic ileus Status: Acute Assessment and Plan: See above. Adynamic ileus improving. (3) Parkinsons disease: Code(s): G20 - Parkinson's disease Status: Chronic Assessment and Plan: Parkinson meds on hold. Resume as soon as ileus resolves. (4) CKD (chronic kidney disease): Qualifiers: Chronic kidney disease stage: stage 3 (moderate) Chronic kidney disease stage 3 subtype: stage 3a (GFR 45-59) Qualified Code(s): N18.31 - Chronic kidney disease, stage 3a Code(s): N18.9 - Chronic kidney disease, unspecified Status: Chronic (5) Prostate CA: Code(s): C61 - Malignant neoplasm of prostate Status: Chronic Subjective Subjective Date/Time Seen: 01/06/22 08:58 Post Op day: #7 Patient reports: no new complaints, feels better, pain is less, no bowel movement and afebrile Review of Systems Review of Systems: All systems reviewed & are unremarkable except as noted in HPI and below (hpi) Exam Const: General: comfortable, no acute distress, awake and thin Nutritional Appearance: thin Orientation/consciousness: No confusion GI: Inspection: distended, incision (Incision dry and healing well) and no visible herniation GI Palp: Yes Soft to palpation, Yes Tenderness to palpation present (GI), No Hernia present, No Palpable mass present and No Ascites present Auscultation: absent bowel sounds Objective Data Vital Signs Vital Signs: Vital Signs - 24 hr 01/05/22 14:00 01/05/22 21:10 01/05/22 20:00 Temperature 36.3 C L Pulse Rate 97 94 Respiratory Rate 20 Blood Pressure 140/89 Pulse Oximetry 97 Oxygen Delivery Room Air 01/05/22 22:00 01/06/22 06:00 Temperature 36.3 C L 36.1 C L Pulse Rate 94 83 Respiratory Rate 17 18 Blood Pressure 146/94 H 132/79 Pulse Oximetry 97 98 Oxygen Delivery Intake/Output Intake/Output: Intake & Output 01/03/22 01/04/22 01/05/22 01/06/22 23:59 23:59 23:59 23:59 Intake Total 1600 2800 2925 770 Output Total 1050 2500 3450 750 Balance 550 300 -525 20 Meds/Results Medications: Active Medications Generic Name Dose Route Start Last Admin Trade Name Freq PRN Reason Stop Dose Admin Acetaminophen 500 mg 01/01/22 09:32 Acetaminophen 500 Mg Tablet PO Q6H PRN Mild Pain (1-3) or Fever Hydrocodone Bitart/Acetaminophen 1 tab 01/01/22 09:32 Hydrocodone/Acetaminophen (*Crx) 5-325 Mg Tablet PO Q4H PRN Pain Rated 7-10 Carbidopa/Levodopa 3 tablet 01/01/22 17:00 01/05/22 14:10 Carbidopa/Levodopa 25/100 Mg Tablet PO Not Given QID MARIANA Enoxaparin Sodium 40 mg 12/30/21 09:00 01/05/22 12:28 Enoxaparin 40 Mg/0.4 Ml Syringe SUB-Q 40 mg DAILY MARIANA Administration Fentanyl Citrate 25 mcg 12/30/21 17:35 Fentanyl Citrate Inj (*Crx) 100 Mcg/2 Ml Vial IV PUSH Q2H PRN Pain Rated 7-10 Fentanyl Citrate 12.5 mcg 12/30/21 17:35 Fentanyl Citrate Inj (*Crx) 100 Mcg/2 Ml Vial IV PUSH Q2H PRN Pain Rated 4-6 Hydralazine HCl 10 mg 01/02/22 16:08 01/04/22 05:56 Hydralazine Hcl 20 Mg/Ml Vial IV PUSH 10 mg Q6HR PRN Administration Blood Pressure - High Ibuprofen 800 mg in 200 mls @ 400 mls/hr 12/30/21 18:00 01/06/22 05:39 Caldolor 800 Mg/200 Ml IVPB Infused Q6HR MARIANA Infusion Ibuprofen 800 mg in 200 mls @ 400 mls/hr 01/01/22 09:32 Caldolor 800 Mg/200 Ml IVPB Q6H PRN Pain Rated 1-3 Sodium Chloride 1,000 mls @ 60 mls/hr 01/03/22 15:15 01/06/22 00:02 Normal
[2022-01-06 09:28] VITALS: PULSE 80
[2022-01-06] MEDS: METOPROLOL TARTRATE INJ 5 MG/5 ML VIAL IV PUSH ×2 (09:28→20:22)
[2022-01-06] MEDS: PANTOPRAZOLE SODIUM IV 40 MG VIAL IV PUSH ×2 (09:28→20:22)
[2022-01-06] MEDS: ENOXAPARIN 40 MG/0.4 ML SYRINGE SUB-Q (09:28)
--- NOTE | 2022-01-06 10:45 | PM.IMPN ---
Progress Note: A&P Assessment and Plan (1) Small bowel obstruction with strangulation or infarction: Status: Acute Assessment and Plan: CT abd/pelvis suggestive of partial small bowel obstruction. General surgery consulted and appreciate recommendations. Small bowel series with slow transit of contrast out of the stomach after 2 hours and possible closed loop obstruction. 12/30/21 s/p small bowel resection with infarction.? 01/01/22 NG pulled out by patient today. Okay to leave out per surgery. Advanced to clears. Continue lowered dose IV fluids and pain control. Ambulate in the hallway. PT/OT consulted. 01/02/22 No emesis, flatus or BM. Taking in clear liquids without c/o worsening pain. Reinforced ambulating. Patient taking in adequate oral liquids and UOP stable. Saline lock IV fluids. Continue current management. Diet advancement per Surgery. 01/03/2022 patient with N/V with brown bile, Will monitor h/h. 01/04/22: patient to have NG tube placed secondary to physical exam today demonstrating no bowel sounds, but continued nausea and vomiting. Discussed with General surgery and they ordered PICC line placement for TPN initiation as well as NG. It should be noted the patient also failed his modified barium swallow yesterday with a definite abnormal finger NG will state of swallowing placing him at high risk for aspiration. 01/05/[address], no bowel sounds, TPN running, small bowel xray is pending 01/06/22 abd xray dilated small bowel, consistent with adynamic ileus, Small bowel xray: Almost all of the contrast remains in the stomach after 4 hours, NG tube remains in place and is draining a dark green thick bile (2) Parkinsons disease: Code(s): G20 - Parkinson's disease Status: Chronic Assessment and Plan: Chronic, stable. Continue carbidopa-levodopa ? 01/04/22: Continue current therapy. 01/05/22 Stable (3) CKD (chronic kidney disease): Qualifiers: Chronic kidney disease stage: stage 3 (moderate) Chronic kidney disease stage 3 subtype: stage 3a (GFR 45-59) Qualified Code(s): N18.31 - Chronic kidney disease, stage 3a Code(s): N18.9 - Chronic kidney disease, unspecified Status: Chronic Assessment and Plan: BUN 34, creatinine 1.00, GFR >60. Chronic, stable. 01/06/22 Avoid nephrotoxic agents and dehydration. Monitor I/O. 01/04/22: Creatinine today is in increased to 1.4. BUN is 35. Suspect mild dehydration. Will restart IV fluids NS at 100 ml/hr. Surgery managing 01/05/22 stable with BUN/Cr 17/0.60 (4) Prostate CA: Code(s): C61 - Malignant neoplasm of prostate Status: Chronic Assessment and Plan: Will need some outpatient follow up Will need to wait for some other problems to resolve (5) Hypertension: Qualifiers: Hypertension type: primary hypertension Qualified Code(s): I10 - Essential (primary) hypertension Code(s): I10 - Essential (primary) hypertension Status: Chronic Assessment and Plan: Chronic, stable. BP 144-170/87-98, likely elevated secondary to pain and NPO status. Monitor vital signs and adjust medications as needed. 01/01/22 resume home medications. 01/02/22 Stop IV fluids. Continue metoprolol. Add PRN IV hydralazine SBP>160 or DBP>100 01/03/2022 145/100 continue prn hyralazine 01/04/22: Stable currently. 01/05/22 slightly elevated probably related to pain and current illness 01/06/22 132/79, currently stable continue to trend (6) Hyperlipidemia: Code(s): E78.5 - Hyperlipidemia, unspecified Status: Acute Assessment and Plan: 01/04/22: Continue statin therapy. Time Spent With Patient Time with patient: Greater than 35 minutes Subjective Date/time seen: 01/06/22 10:45 Interval history: 01/06/22 1045 Patient seems okay. He looks to be very miserable. He states all she wants is a drink of wa
[2022-01-06 12:29] LABS: Glucose Point of Care 92 mg/dl (65-105)
[2022-01-06 14:00] VITALS: BP 135/69; PULSE 90; RESP 20; TEMP 36.4; O2SAT 100
[2022-01-06] MEDS: FAT EMULSIONS IV 20% 250 ML 20 ML IVPB (16:43)
[2022-01-06 19:08] LABS: Glucose Point of Care 120 mg/dl (65-105)
[2022-01-06 20:22] VITALS: PULSE 90
[2022-01-06 22:00] VITALS: BP 149/81; PULSE 96; RESP 20; TEMP 36.9; O2SAT 98
[2022-01-06] MEDS: SODIUM CHLORIDE 0.9% IV 1,000 ML 40 ML IV CONT (23:25)
[2022-01-07 00:02] LABS: Glucose Point of Care 98 mg/dl (65-105)
[2022-01-07] MEDS: CENTRAL LINE FLUSH 10 ML IV PUSH ×3 (05:31→20:40)
[2022-01-07] MEDS: CENTRAL LINE FLUSH 20 ML IV PUSH (05:31)
[2022-01-07] MEDS: IBUPROFEN IV 800 MG/200 ML 800 MG/200 ML BAG 400 MG IVPB ×3 (05:31→17:33)
[2022-01-07 05:47] LABS: Glucose Point of Care 109 mg/dl (65-105)
[2022-01-07 05:48] LABS: Hematocrit 31.1 % (42.0-52.0); Hemoglobin 10.2 g/dL (14.0-18.0); Mean Corpuscular HGB Conc 32.8 g/dl (32-36); Mean Corpuscular Hemoglobin 31.6 pg (26-34); Mean Corpuscular Volume 96.3 fl (80-100); Mean Platelet Volume 10.1 fl (7.4-10.4); Platelet Count Result 179 k/mm3 (150-375); Red Blood Count 3.23 M/mm3 (4.6-6.20); Red Cell Distribution Width 13.9 % (11.5-14.5); White Blood Count 17.7 K/mm3 (4.5-10.0)
[2022-01-07 05:58] LABS: Alanine Aminotransferase 16 U/L (6-50); Albumin Level 2.6 g/dL (3.5-5.1); Alkaline Phosphatase 57 U/L (38-126); Anion Gap 5 mmol/L (8-16); Aspartate Amino Transferase 23 U/L (17-59); Bilirubin,Total 0.5 mg/dL (0.2-1.3); Blood Urea Nitrogen 26 mg/dL (9-20); Calcium 7.3 mg/dL (8.4-10.2); Carbon Dioxide 27 mmol/L (22-30); Chloride 106 mmol/L (98-107); Estimated CRCL calculation 53 ml/min; Estimated Glomerular Filt Rate > 60; Glucose 101 mg/dL (65-110); Phosphorus 3.2 mg/dL (2.5-4.5); Potassium 3.1 mmol/L (3.4-5.0); Sodium 138 mmol/L (137-145)
[2022-01-07 06:00] VITALS: BP 111/64; PULSE 94; RESP 20; TEMP 36.4; O2SAT 96
[2022-01-07 07:11] LABS: Band Neutrophils Percent 11 % (0-6); Lymphocytes Absolute Manual 0.35 K/mm3 (1.1-4.5); Monocytes Absolute Manual 0.88 K/mm3 (0.1-0.90); Monocytes Percent Manual 5 % (3-9); Neutrophils Absolute Manual 16.46 K/mm3 (1.3-6.7); Neutrophils Percent Manual 82 % (46-73); Platelet Estimate Adequate (Adequate); Schistocytes None Seen (NORMAL); Total Cells Counted 100
[2022-01-07 09:24] VITALS: PULSE 83
[2022-01-07] MEDS: ENOXAPARIN 40 MG/0.4 ML SYRINGE SUB-Q (09:24)
[2022-01-07] MEDS: METOPROLOL TARTRATE INJ 5 MG/5 ML VIAL IV PUSH ×2 (09:24→20:40)
[2022-01-07] MEDS: AMINO ACIDS 5%/D15W/E-LYTES/CA 2,000 ML with MULTIVITAMINS-12 INJ VIAL 1 2.5 ML, MULTIV... 50 ML IV CONT (09:24)
--- NOTE | 2022-01-07 10:00 | PM.IMPN ---
Progress Note: A&P Assessment and Plan (1) Small bowel obstruction with strangulation or infarction: Status: Acute Assessment and Plan: CT abd/pelvis suggestive of partial small bowel obstruction. General surgery consulted and appreciate recommendations. Small bowel series with slow transit of contrast out of the stomach after 2 hours and possible closed loop obstruction. 12/30/21 s/p small bowel resection with infarction.? 01/01/22 NG pulled out by patient today. Okay to leave out per surgery. Advanced to clears. Continue lowered dose IV fluids and pain control. Ambulate in the hallway. PT/OT consulted. 01/02/22 No emesis, flatus or BM. Taking in clear liquids without c/o worsening pain. Reinforced ambulating. Patient taking in adequate oral liquids and UOP stable. Saline lock IV fluids. Continue current management. Diet advancement per Surgery. 01/03/2022 patient with N/V with brown bile, Will monitor h/h. 01/04/22: patient to have NG tube placed secondary to physical exam today demonstrating no bowel sounds, but continued nausea and vomiting. Discussed with General surgery and they ordered PICC line placement for TPN initiation as well as NG. It should be noted the patient also failed his modified barium swallow yesterday with a definite abnormal finger NG will state of swallowing placing him at high risk for aspiration. 01/05/[address], no bowel sounds, TPN running, small bowel xray is pending 01/06/22 abd xray dilated small bowel, consistent with adynamic ileus, Small bowel xray: Almost all of the contrast remains in the stomach after 4 hours, NG tube remains in place and is draining a dark green thick bile 01/07/22 stable at this time. still sucking a thick green bile. KUB dilated small bowel likely adynamic ileus (2) Adynamic ileus: Code(s): K56.0 - Paralytic ileus Status: Acute Assessment and Plan: See above (3) Parkinsons disease: Code(s): G20 - Parkinson's disease Status: Chronic Assessment and Plan: Chronic, stable. Continue carbidopa-levodopa ? 01/04/22: Continue current therapy. 01/05/22 Stable (4) CKD (chronic kidney disease): Qualifiers: Chronic kidney disease stage: stage 3 (moderate) Chronic kidney disease stage 3 subtype: stage 3a (GFR 45-59) Qualified Code(s): N18.31 - Chronic kidney disease, stage 3a Code(s): N18.9 - Chronic kidney disease, unspecified Status: Chronic Assessment and Plan: BUN 34, creatinine 1.00, GFR >60. Chronic, stable. 01/06/22 Avoid nephrotoxic agents and dehydration. Monitor I/O. 01/04/22: Creatinine today is in increased to 1.4. BUN is 35. Suspect mild dehydration. Will restart IV fluids NS at 100 ml/hr. Surgery managing 01/05/22 stable with BUN/Cr 17/0.60 01/07/22 BUN/Cr 26/0.90 (5) Prostate CA: Code(s): C61 - Malignant neoplasm of prostate Status: Chronic Assessment and Plan: Will need some outpatient follow up Will need to wait for some other problems to resolve (6) Hypertension: Qualifiers: Hypertension type: primary hypertension Qualified Code(s): I10 - Essential (primary) hypertension Code(s): I10 - Essential (primary) hypertension Status: Chronic Assessment and Plan: Chronic, stable. BP 144-170/87-98, likely elevated secondary to pain and NPO status. Monitor vital signs and adjust medications as needed. 01/01/22 resume home medications. 01/02/22 Stop IV fluids. Continue metoprolol. Add PRN IV hydralazine SBP>160 or DBP>100 01/03/2022 145/100 continue prn hyralazine 01/04/22: Stable currently. 01/05/22 slightly elevated probably related to pain and current illness 01/06/22 132/79, currently stable continue to trend 01/07/22 111/64 stable (7) Hyperlipidemia: Code(s): E78.5 - Hyperlipidemia, unspecified Status: Acute Assessment and Plan:
[2022-01-07 10:03] LABS: Triglycerides 142 mg/dL (<150)
[2022-01-07 11:47] LABS: Glucose Point of Care 115 mg/dl (65-105)
--- NOTE | 2022-01-07 11:57 | PM.PNGS ---
Progress Note: A&P Assessment and Plan (1) Small bowel obstruction with strangulation or infarction: Status: Acute Assessment and Plan: Multiple bowel movements overnight. Seems to be improving. NG output has decreased over the last 24 hours. Plain films improving. WBC up to 17k today from 8.3 yesterday, afebrile, incision healing well, overall improving. Hospitalist checking a chest x-ray, repeat labs tomorrow. Continue NG tube decompression with bowel rest. TPN for nutrition, increased to 60 ml/hr today to goal. May consider gastrografin upper GI small bowel series tomorrow. (2) Adynamic ileus: Code(s): K56.0 - Paralytic ileus Status: Acute Assessment and Plan: See above. Adynamic ileus improving. (3) Parkinsons disease: Code(s): G20 - Parkinson's disease Status: Chronic Assessment and Plan: Parkinson meds on hold. Resume as soon as ileus resolves. (4) CKD (chronic kidney disease): Qualifiers: Chronic kidney disease stage: stage 3 (moderate) Chronic kidney disease stage 3 subtype: stage 3a (GFR 45-59) Qualified Code(s): N18.31 - Chronic kidney disease, stage 3a Code(s): N18.9 - Chronic kidney disease, unspecified Status: Chronic (5) Prostate CA: Code(s): C61 - Malignant neoplasm of prostate Status: Chronic (6) Protein calorie malnutrition: Code(s): E46 - Unspecified protein-calorie malnutrition Status: Acute Assessment and Plan: Continue TPN Plan I have discussed the patient's case and plan of care with Dr. Tamez. Subjective Subjective Date/Time Seen: 01/07/22 11:57 Post Op day: 8 (Small bowel resection with anastomosis) Patient reports: no new complaints, flatus, bowel movement and afebrile Interval history: Patient seen and examined. He is feeling well today. Multiple bowel movements overnight. He denies any abdominal pain. NG output yesterday was 600 cc and 100 cc overnight. No other complaints at this time. Review of Systems Review of Systems: All systems reviewed & are unremarkable except as noted in HPI and below Exam Const: General: comfortable, no acute distress and alert Orientation/consciousness: patient oriented x3 GI: Inspection: incision (Incision dry and healing well) and other (improved distention) GI Palp: Yes Soft to palpation, No Tenderness to palpation present (GI), No Guarding due to palpation present (GI) and No Rebound tenderness present Auscultation: normal bowel sounds (better today) Neuro: General: No confusion Extrem: General: no calf tenderness and no edema Objective Data Vital Signs Vital Signs: Vital Signs - 24 hr 01/06/22 14:00 01/06/22 20:22 01/06/22 20:00 Temperature 97.5 F L Pulse Rate 90 90 Respiratory Rate 20 Blood Pressure 135/69 Pulse Oximetry 100 Oxygen Delivery Room Air 01/06/22 22:00 01/07/22 06:00 01/07/22 09:24 Temperature 98.4 F 97.5 F L Pulse Rate 96 94 83 Respiratory Rate 20 20 Blood Pressure 149/81 H 111/64 Pulse Oximetry 98 96 Oxygen Delivery Intake/Output Intake/Output: Intake & Output 01/04/22 01/05/22 01/06/22 01/07/22 23:59 23:59 23:59 23:59 Intake Total 2800 2925 3410 2455 Output Total 2500 3450 1350 300 Balance 300 -525 2060 2155 Meds/Results Medications: Active Medications Generic Name Dose Route Start Last Admin Trade Name Freq PRN Reason Stop Dose Admin Acetaminophen 500 mg 01/01/22 09:32 Acetaminophen 500 Mg Tablet PO Q6H PRN Mild Pain (1-3) or Fever Hydrocodone Bitart/Acetaminophen 1 tab 01/01/22 09:32 Hydrocodone/Acetaminophen (*Crx) 5-325 Mg Tablet PO Q4H PRN Pain Rated 7-10 Carbidopa/Levodopa 3 tablet 01/01/22 17:00 01/05/22 14:10 Carbidopa/Levodopa 25/100 Mg Tablet PO Not Given QID MARIANA Enoxaparin Sodium 40 mg 12/30/21 09:00 01/07/22 09:24 Enoxaparin 40 Mg/0.4 Ml Syringe SUB-Q 40 mg DAILY MARIANA Administration
[2022-01-07] MEDS: PANTOPRAZOLE SODIUM IV 40 MG VIAL IV PUSH ×2 (12:23→20:40)
[2022-01-07 14:00] VITALS: BP 115/65; PULSE 71; RESP 20; TEMP 36; O2SAT 100
[2022-01-07] MEDS: FAT EMULSIONS IV 20% 250 ML 20 ML IVPB (16:46)
[2022-01-07 18:11] LABS: Glucose Point of Care 97 mg/dl (65-105)
[2022-01-07 20:40] VITALS: PULSE 95
[2022-01-07 22:00] VITALS: BP 120/79; PULSE 95; RESP 16; TEMP 36.7; O2SAT 94
[2022-01-08] MEDS: IBUPROFEN IV 800 MG/200 ML 800 MG/200 ML BAG 400 MG IVPB ×4 (00:04→17:28)
[2022-01-08] MEDS: SODIUM CHLORIDE 0.9% IV 1,000 ML 40 ML IV CONT (00:06)
[2022-01-08 00:16] LABS: Glucose Point of Care 134 mg/dl (65-105)
[2022-01-08] MEDS: CENTRAL LINE FLUSH 20 ML IV PUSH (05:32)
[2022-01-08] MEDS: CENTRAL LINE FLUSH 10 ML IV PUSH ×3 (05:32→22:32)
[2022-01-08 05:51] LABS: Basophils Percent Auto 0.1 % (0.2-1.2); Eosinophils Absolute Auto 0.3 K/mm3 (0-0.3); Eosinophils Percent Auto 1.4 % (0-4.4); Hematocrit 28.4 % (42.0-52.0); Hemoglobin 9.5 g/dL (14.0-18.0); Immature Granulocyte Absolute 0.32 K/mm3 (0.00-0.031); Immature Granulocyte Percent A 1.5 % (0-0.5); Lymphocytes Absolute Auto 0.86 K/mm3 (0.9-3.2); Mean Corpuscular HGB Conc 33.5 g/dl (32-36); Mean Corpuscular Hemoglobin 31.3 pg (26-34); Mean Corpuscular Volume 93.4 fl (80-100); Mean Platelet Volume 10.1 fl (7.4-10.4); Monocytes Percent Auto 4.7 % (2.6-8.5); Neutrophils Absolute Auto 18.9 K/mm3 (1.3-6.7); Neutrophils Percent Auto 88.3 % (45.5-73.1); Platelet Count Result 183 k/mm3 (150-375); Red Blood Count 3.04 M/mm3 (4.6-6.20); White Blood Count 21.4 K/mm3 (4.5-10.0)
[2022-01-08 06:10] VITALS: BP 116/62; PULSE 91; RESP 20; TEMP 36.5; O2SAT 98
[2022-01-08 06:11] LABS: Glucose Point of Care 137 mg/dl (65-105)
[2022-01-08 06:20] LABS: Anion Gap 10 mmol/L (8-16); Blood Urea Nitrogen 25 mg/dL (9-20); Calcium 7.1 mg/dL (8.4-10.2); Carbon Dioxide 25 mmol/L (22-30); Chloride 104 mmol/L (98-107); Estimated CRCL calculation 53 ml/min; Estimated Glomerular Filt Rate > 60; Glucose 121 mg/dL (65-110); Phosphorus 3.2 mg/dL (2.5-4.5); Potassium 2.5 mmol/L (3.4-5.0); Sodium 139 mmol/L (137-145)
[2022-01-08] MEDS: POTASSIUM CHLORIDE INJ 40 MEQ in SODIUM CHLORIDE 0.9% IV 500 ML 130 MEQ IVPB (06:49)
[2022-01-08 08:25] VITALS: PULSE 88
[2022-01-08] MEDS: ENOXAPARIN 40 MG/0.4 ML SYRINGE SUB-Q (08:25)
[2022-01-08] MEDS: PANTOPRAZOLE SODIUM IV 40 MG VIAL IV PUSH ×2 (08:25→22:32)
[2022-01-08] MEDS: METOPROLOL TARTRATE INJ 5 MG/5 ML VIAL IV PUSH ×2 (08:25→22:30)
--- NOTE | 2022-01-08 09:04 | PCOTNOTE ---
Patient in small bowel follow through this AM. Will continue OT per plan of care.
--- NOTE | 2022-01-08 11:00 | PCPTNOTE ---
The patient treatment was not able to be completed due to patient out of room for testing. Will plan to continue treatment per plan of care.
--- NOTE | 2022-01-08 11:21 | PCNFU ---
Nutrition Follow-Up Complete: Severe malnutrition related to ileus vs small bowel obstruction, as evidenced by weight loss 11%/6 months, severe muscle wasting, and need for parenteral nutrition. Goal: Tolerate TPN at goal rate, patient is meeting current goal. We will continue current goal. Advance to PO intake as medically able, goal not being met at this time. Pt current nutrition is Clinimix E 5/15 at 60 ml/hr. Last recorded weight is 91.5 kg, up from 79.7 kg on admit. Bowel Motility:+BM reported 01/08 Labs Reviewed:Glu 121, K 2.5, BUN 25, Hct 28.4,Hgb 9.5 Meds Noted:Clinimix E 5/15 at 60 ml/hr with 250 ml of 20% Lipid Emulsion, Lovenox, Lopressor, Protonix Skin: WNL Additional Notes: Patient remains on TPN currently providing 1522 kcals and 72 gms protein, meeting 76% kcals needs and 100% protein needs. MBS on 01/03. Upper GI small bowel series today, no results yet. Agree with TPN orders at this time. Monitoring labs, intakes, weights, diet advancement, plan of care. Follow up Tuesdays and Fridays per policy
[2022-01-08 11:56] LABS: Glucose Point of Care 127 mg/dl (65-105)
--- NOTE | 2022-01-08 12:00 | PM.IMPN ---
Progress Note: A&P Assessment and Plan (1) Small bowel obstruction with strangulation or infarction: Status: Acute Assessment and Plan: CT abd/pelvis suggestive of partial small bowel obstruction. General surgery consulted and appreciate recommendations. Small bowel series with slow transit of contrast out of the stomach after 2 hours and possible closed loop obstruction. 12/30/21 s/p small bowel resection with infarction.? 01/01/22 NG pulled out by patient today. Okay to leave out per surgery. Advanced to clears. Continue lowered dose IV fluids and pain control. Ambulate in the hallway. PT/OT consulted. 01/02/22 No emesis, flatus or BM. Taking in clear liquids without c/o worsening pain. Reinforced ambulating. Patient taking in adequate oral liquids and UOP stable. Saline lock IV fluids. Continue current management. Diet advancement per Surgery. 01/03/2022 patient with N/V with brown bile, Will monitor h/h. 01/04/22: patient to have NG tube placed secondary to physical exam today demonstrating no bowel sounds, but continued nausea and vomiting. Discussed with General surgery and they ordered PICC line placement for TPN initiation as well as NG. It should be noted the patient also failed his modified barium swallow yesterday with a definite abnormal finger NG will state of swallowing placing him at high risk for aspiration. 01/05/[address], no bowel sounds, TPN running, small bowel xray is pending 01/06/22 abd xray dilated small bowel, consistent with adynamic ileus, Small bowel xray: Almost all of the contrast remains in the stomach after 4 hours, NG tube remains in place and is draining a dark green thick bile 01/07/22 stable at this time. still sucking a thick green bile. KUB dilated small bowel likely adynamic ileus 01/08/22 Remained stable. Bile does seem to be more than clear side. small-bowel follow-through does indicate normal transition time consistent with adynamic ileus (2) Adynamic ileus: Code(s): K56.0 - Paralytic ileus Status: Acute Assessment and Plan: See above (3) Parkinsons disease: Code(s): G20 - Parkinson's disease Status: Chronic Assessment and Plan: Chronic, stable. Continue carbidopa-levodopa ? 01/04/22: Continue current therapy. 01/05/22 Stable (4) CKD (chronic kidney disease): Qualifiers: Chronic kidney disease stage: stage 3 (moderate) Chronic kidney disease stage 3 subtype: stage 3a (GFR 45-59) Qualified Code(s): N18.31 - Chronic kidney disease, stage 3a Code(s): N18.9 - Chronic kidney disease, unspecified Status: Chronic Assessment and Plan: BUN 34, creatinine 1.00, GFR >60. Chronic, stable. 01/06/22 Avoid nephrotoxic agents and dehydration. Monitor I/O. 01/04/22: Creatinine today is in increased to 1.4. BUN is 35. Suspect mild dehydration. Will restart IV fluids NS at 100 ml/hr. Surgery managing 01/05/22 stable with BUN/Cr 17/0.60 01/07/22 BUN/Cr 26/0.90 01/08/22 bun/cr 25/0.90 (5) Prostate CA: Code(s): C61 - Malignant neoplasm of prostate Status: Chronic Assessment and Plan: Will need some outpatient follow up Will need to wait for some other problems to resolve (6) Hypertension: Qualifiers: Hypertension type: primary hypertension Qualified Code(s): I10 - Essential (primary) hypertension Code(s): I10 - Essential (primary) hypertension Status: Chronic Assessment and Plan: Chronic, stable. BP 144-170/87-98, likely elevated secondary to pain and NPO status. Monitor vital signs and adjust medications as needed. 01/01/22 resume home medications. 01/02/22 Stop IV fluids. Continue metoprolol. Add PRN IV hydralazine SBP>160 or DBP>100 01/03/2022 145/100 continue prn hyralazine 01/04/22: Stable currently. 01/05/22 slightly elevated probably related to pain and current illness 01/06/22 132/79, current
--- NOTE | 2022-01-08 13:00 | PM.PNGS ---
Progress Note: A&P Assessment and Plan (1) Small bowel obstruction with strangulation or infarction: Status: Acute Assessment and Plan: No residual obstruction and no evidence of anastomotic leak. (2) Adynamic ileus: Code(s): K56.0 - Paralytic ileus Status: Acute Assessment and Plan: Persistent ileus by small-bowel series today. We will continue NG tube for now and recheck exam labs and plain films tomorrow. Hopefully can clamp NG in 1-2 days and eventually remove. Patient did have bowel movement after small-bowel follow-through. (3) Protein calorie malnutrition: Code(s): E46 - Unspecified protein-calorie malnutrition Status: Acute Assessment and Plan: Continue TPN as patient remains unable to eat. (4) Parkinsons disease: Code(s): G20 - Parkinson's disease Status: Chronic Assessment and Plan: Meds continuing on hold as patient NPO. Subjective Subjective Date/Time Seen: 01/08/22 13:00 Patient reports: no new complaints, bowel movement and afebrile Exam GI: Inspection: non-distended, incision (Dry and continues to heal well) and no visible herniation GI Palp: Yes Soft to palpation, Yes Tenderness to palpation present (GI) (Very slight tenderness), No Guarding due to palpation present (GI), No Hernia present and No Palpable mass present Auscultation: Hypoactive bowel sounds present Objective Data Vital Signs Vital Signs: Vital Signs - 24 hr 01/07/22 14:00 01/07/22 20:40 01/07/22 20:00 Temperature 36.0 C L Pulse Rate 71 95 Respiratory Rate 20 Blood Pressure 115/65 Pulse Oximetry 100 Oxygen Delivery Room Air 01/07/22 22:00 01/08/22 06:10 01/08/22 08:25 Temperature 36.7 C 36.5 C Pulse Rate 95 91 88 Respiratory Rate 16 20 Blood Pressure 120/79 116/62 Pulse Oximetry 94 98 Oxygen Delivery 01/08/22 08:30 Temperature Pulse Rate Respiratory Rate Blood Pressure Pulse Oximetry Oxygen Delivery Room Air Intake/Output Intake/Output: Intake & Output 01/05/22 01/06/22 01/07/22 01/08/22 23:59 23:59 23:59 23:59 Intake Total 2925 3410 2855 1650 Output Total 3450 1350 1000 450 Balance -525 2060 1855 1200 Meds/Results Medications: Active Medications Generic Name Dose Route Start Last Admin Trade Name Freq PRN Reason Stop Dose Admin Acetaminophen 500 mg 01/01/22 09:32 Acetaminophen 500 Mg Tablet PO Q6H PRN Mild Pain (1-3) or Fever Hydrocodone Bitart/Acetaminophen 1 tab 01/01/22 09:32 Hydrocodone/Acetaminophen (*Crx) 5-325 Mg Tablet PO Q4H PRN Pain Rated 7-10 Carbidopa/Levodopa 3 tablet 01/01/22 17:00 01/05/22 14:10 Carbidopa/Levodopa 25/100 Mg Tablet PO Not Given QID MARIANA Enoxaparin Sodium 40 mg 12/30/21 09:00 01/08/22 08:25 Enoxaparin 40 Mg/0.4 Ml Syringe SUB-Q 40 mg DAILY MARIANA Administration Fentanyl Citrate 25 mcg 12/30/21 17:35 Fentanyl Citrate Inj (*Crx) 100 Mcg/2 Ml Vial IV PUSH Q2H PRN Pain Rated 7-10 Fentanyl Citrate 12.5 mcg 12/30/21 17:35 Fentanyl Citrate Inj (*Crx) 100 Mcg/2 Ml Vial IV PUSH Q2H PRN Pain Rated 4-6 Hydralazine HCl 10 mg 01/02/22 16:08 01/04/22 05:56 Hydralazine Hcl 20 Mg/Ml Vial IV PUSH 10 mg Q6HR PRN Administration Blood Pressure - High Ibuprofen 800 mg in 200 mls @ 400 mls/hr 12/30/21 18:00 01/08/22 11:48 Caldolor 800 Mg/200 Ml IVPB 400 mls/hr Q6HR MARIANA Administration Ibuprofen 800 mg in 200 mls @ 400 mls/hr 01/01/22 09:32 Caldolor 800 Mg/200 Ml IVPB Q6H PRN Pain Rated 1-3 Sodium Chloride 1,000 mls @ 40 mls/hr 01/03/22 15:15 01/08/22 08:25 Normal Saline Iv IV CONT Not Given .Q24H MARIANA Dextrose 1,000 mls @ 50 mls/hr 01/04/22 11:02 Dextrose 10% IV CONT .Q20H PRN if PN is interrupted Multivitamins 2.5 ml/ 2,005 mls @ 60 mls/hr 01/04/22 16:00 01/08/22 08:26 Multivitamins 2.5 ml/ Amino IV CONT Not Given Acids
[2022-01-08 14:00] VITALS: BP 120/80; PULSE 95; RESP 20; TEMP 36.4; O2SAT 95
[2022-01-08] MEDS: FAT EMULSIONS IV 20% 250 ML 20 ML IVPB (15:42)
[2022-01-08] MEDS: AMINO ACIDS 5%/D15W/E-LYTES/CA 2,000 ML with MULTIVITAMINS-12 INJ VIAL 1 2.5 ML, MULTIV... 60 ML IV CONT (15:42)
[2022-01-08 16:22] LABS: Bacteria Urine Trace /hpf; Mucus Urine Rare /lpf; Squamous Epithelial Cell Urine Rare /hpf (Few); WBC Urine 0-3 /hpf
[2022-01-08 16:24] LABS: Appearance Urine Slightly Cloudy (Clear); Bilirubin Urine Negative (Negative); Blood Urine 1+ (Negative); Color Urine Yellow (Yellow); Glucose Urine UA Negative (Negative); Ketones Urine Negative (Negative); Leukocyte Esterase Ur Negative LEU/UL (Negative); Nitrate Urine Negative (Negative); Protein Urine 2+ mg/dL (Negative); Specific Grav Ur 1.025 (1.001-1.035); Urobilinogen Urine 0.2 mg/dL (<2.0); pH Urine 6.5 (5.0-9.0)
[2022-01-08 16:36] LABS: Add Urine Microscopic? YES
[2022-01-08 18:34] LABS: Glucose Point of Care 117 mg/dl (65-105)
[2022-01-08 20:11] VITALS: BP 149/83; PULSE 69; RESP 12; TEMP 36.9; O2SAT 96
[2022-01-08 22:30] VITALS: PULSE 80
[2022-01-09] MEDS: IBUPROFEN IV 800 MG/200 ML 800 MG/200 ML BAG 400 MG IVPB ×4 (00:34→17:31)
[2022-01-09] MEDS: SODIUM CHLORIDE 0.9% IV 1,000 ML 40 ML IV CONT (04:49)
[2022-01-09] MEDS: CENTRAL LINE FLUSH 10 ML IV PUSH ×3 (04:53→21:48)
[2022-01-09 05:21] LABS: Hematocrit 26.9 % (42.0-52.0); Mean Corpuscular HGB Conc 33.5 g/dl (32-36); Mean Corpuscular Volume 98.5 fl (80-100); Mean Platelet Volume 10.5 fl (7.4-10.4); Platelet Count Result 173 k/mm3 (150-375); Red Blood Count 2.73 M/mm3 (4.6-6.20); Red Cell Distribution Width 14.6 % (11.5-14.5); White Blood Count 12.8 K/mm3 (4.5-10.0)
[2022-01-09 05:24] VITALS: BP 129/69; PULSE 66; RESP 12; TEMP 36.6; O2SAT 98
[2022-01-09 05:35] LABS: Glucose Point of Care 131 mg/dl (65-105)
[2022-01-09 07:00] LABS: Anion Gap 6 mmol/L (8-16); Blood Urea Nitrogen 22 mg/dL (9-20); Calcium 7.1 mg/dL (8.4-10.2); Carbon Dioxide 25 mmol/L (22-30); Chloride 109 mmol/L (98-107); Estimated CRCL calculation 61 ml/min; Estimated Glomerular Filt Rate > 60; Glucose 120 mg/dL (65-110); Phosphorus 3.1 mg/dL (2.5-4.5); Potassium 2.5 mmol/L (3.4-5.0); Sodium 140 mmol/L (137-145)
[2022-01-09] MEDS: POTASSIUM CHLORIDE INJ 40 MEQ in SODIUM CHLORIDE 0.9% IV 500 ML 130 MEQ IVPB ×2 (08:01→13:32)
[2022-01-09 08:02] VITALS: PULSE 68
[2022-01-09] MEDS: ENOXAPARIN 40 MG/0.4 ML SYRINGE SUB-Q (08:02)
[2022-01-09] MEDS: METOPROLOL TARTRATE INJ 5 MG/5 ML VIAL IV PUSH ×2 (08:02→21:47)
[2022-01-09] MEDS: PANTOPRAZOLE SODIUM IV 40 MG VIAL IV PUSH ×2 (08:02→21:48)
[2022-01-09 09:32] LABS: Triglycerides 132 mg/dL (<150)
--- NOTE | 2022-01-09 10:15 | PM.IMPN ---
Progress Note: A&P Assessment and Plan (1) Small bowel obstruction with strangulation or infarction: Status: Acute Assessment and Plan: CT abd/pelvis suggestive of partial small bowel obstruction. General surgery consulted and appreciate recommendations. Small bowel series with slow transit of contrast out of the stomach after 2 hours and possible closed loop obstruction. 12/30/21 s/p small bowel resection with infarction.? 01/01/22 NG pulled out by patient today. Okay to leave out per surgery. Advanced to clears. Continue lowered dose IV fluids and pain control. Ambulate in the hallway. PT/OT consulted. 01/02/22 No emesis, flatus or BM. Taking in clear liquids without c/o worsening pain. Reinforced ambulating. Patient taking in adequate oral liquids and UOP stable. Saline lock IV fluids. Continue current management. Diet advancement per Surgery. 01/03/2022 patient with N/V with brown bile, Will monitor h/h. 01/04/22: patient to have NG tube placed secondary to physical exam today demonstrating no bowel sounds, but continued nausea and vomiting. Discussed with General surgery and they ordered PICC line placement for TPN initiation as well as NG. It should be noted the patient also failed his modified barium swallow yesterday with a definite abnormal finger NG will state of swallowing placing him at high risk for aspiration. 01/05/[address], no bowel sounds, TPN running, small bowel xray is pending 01/06/22 abd xray dilated small bowel, consistent with adynamic ileus, Small bowel xray: Almost all of the contrast remains in the stomach after 4 hours, NG tube remains in place and is draining a dark green thick bile 01/07/22 stable at this time. still sucking a thick green bile. KUB dilated small bowel likely adynamic ileus 01/08/22 Remained stable. Bile does seem to be more than clear side. small-bowel follow-through does indicate normal transition time consistent with adynamic ileus 01/09/22 Ileus remains. Continue with NG tube and TPN repeat abdomen in the morning (2) Adynamic ileus: Code(s): K56.0 - Paralytic ileus Status: Acute Assessment and Plan: See above (3) Parkinsons disease: Code(s): G20 - Parkinson's disease Status: Chronic Assessment and Plan: Chronic, stable. Continue carbidopa-levodopa ? 01/04/22: Continue current therapy. 01/05/22 Stable (4) CKD (chronic kidney disease): Qualifiers: Chronic kidney disease stage: stage 3 (moderate) Chronic kidney disease stage 3 subtype: stage 3a (GFR 45-59) Qualified Code(s): N18.31 - Chronic kidney disease, stage 3a Code(s): N18.9 - Chronic kidney disease, unspecified Status: Chronic Assessment and Plan: BUN 34, creatinine 1.00, GFR >60. Chronic, stable. 01/06/22 Avoid nephrotoxic agents and dehydration. Monitor I/O. 01/04/22: Creatinine today is in increased to 1.4. BUN is 35. Suspect mild dehydration. Will restart IV fluids NS at 100 ml/hr. Surgery managing 01/05/22 stable with BUN/Cr 17/0.60 01/07/22 BUN/Cr 26/0.90 01/08/22 bun/cr 25/0.90 01/09/22 BUN/ creatinine 22/0.90 (5) Prostate CA: Code(s): C61 - Malignant neoplasm of prostate Status: Chronic Assessment and Plan: Will need some outpatient follow up Will need to wait for some other problems to resolve (6) Hypertension: Qualifiers: Hypertension type: primary hypertension Qualified Code(s): I10 - Essential (primary) hypertension Code(s): I10 - Essential (primary) hypertension Status: Chronic Assessment and Plan: Chronic, stable. BP 144-170/87-98, likely elevated secondary to pain and NPO status. Monitor vital signs and adjust medications as needed. 01/01/22 resume home medications. 01/02/22 Stop IV fluids. Continue metoprolol. Add PRN IV hydralazine SBP>160 or DBP>100 01/03/2022 145/100 continue prn hyralazine
[2022-01-09 11:52] LABS: Glucose Point of Care 109 mg/dl (65-105)
--- NOTE | 2022-01-09 12:57 | PM.PNGS ---
Progress Note: A&P Assessment and Plan (1) Small bowel obstruction with strangulation or infarction: Status: Acute Assessment and Plan: Obstruction resolved the patient continues used to show signs of adynamic ileus. Still has high NG tube output and dilated bowel on plain films. He would like ice chips but he chokes when he tries to swallow them. Hopefully can get NG tube out by Tuesday and repeat modified swallow study. (2) Parkinsons disease: Code(s): G20 - Parkinson's disease Status: Chronic Assessment and Plan: Not receiving his medications since he is NPO (3) Protein calorie malnutrition: Code(s): E46 - Unspecified protein-calorie malnutrition Status: Acute Assessment and Plan: cont TPN (4) Hypokalemia: Code(s): E87.6 - Hypokalemia Status: Acute Assessment and Plan: Repeat K rider this afternoon. Recheck again in the morning. (5) Leukocytosis: Code(s): D72.829 - Elevated white blood cell count, unspecified Status: Acute Assessment and Plan: White blood cell count finally decreased to 12,800. Was 21 point 4 yesterday Subjective Subjective Date/Time Seen: 01/09/22 12:57 Post Op day: #10 Patient reports: no new complaints (Main complaint is he wants ice chips), pain is less, bowel movement and afebrile Review of Systems Review of Systems: All systems reviewed & are unremarkable except as noted in HPI and below (HPI and those items below) Constitutional: Constitutional: Denies chills and Denies fever(s) Cardiovascular: Cardiovascular: Denies chest pain, Denies diaphoresis, Denies dyspnea and Denies paroxysmal nocturnal dyspnea Respiratory: Respiratory: Denies chest congestion, Denies cough and Denies dyspnea Integumentary/Breasts: Skin/Breast: Denies lesions and Denies rash Exam Const: General: comfortable, alert and awake GI: Inspection: incision (Dry and healing well) and scaphoid GI Palp: Yes Firmness to palpation present (GI), No Rigid due to palpation, No Hernia present, No Palpable mass present and No Ascites present Auscultation: Hypoactive bowel sounds present Objective Data Vital Signs Vital Signs: Vital Signs - 24 hr 01/08/22 14:00 01/08/22 20:11 01/08/22 22:30 Temperature 36.4 C 36.9 C Pulse Rate 95 69 80 Respiratory Rate 20 12 Blood Pressure 120/80 149/83 H Pulse Oximetry 95 96 Oxygen Delivery 01/08/22 20:00 01/09/22 05:24 01/09/22 08:02 Temperature 36.6 C Pulse Rate 66 68 Respiratory Rate 12 Blood Pressure 129/69 Pulse Oximetry 98 Oxygen Delivery Room Air 01/09/22 08:15 Temperature Pulse Rate Respiratory Rate Blood Pressure Pulse Oximetry Oxygen Delivery Room Air Intake/Output Intake/Output: Intake & Output 01/06/22 01/07/22 01/08/22 01/09/22 23:59 23:59 23:59 23:59 Intake Total 3410 2855 4055 2020 Output Total 1350 1000 730 920 920 cc out NG tube yesterday Balance 2060 1855 3325 1100 Meds/Results Medications: Active Medications Generic Name Dose Route Start Last Admin Trade Name Freq PRN Reason Stop Dose Admin Acetaminophen 500 mg 01/01/22 09:32 Acetaminophen 500 Mg Tablet PO Q6H PRN Mild Pain (1-3) or Fever Hydrocodone Bitart/Acetaminophen 1 tab 01/01/22 09:32 Hydrocodone/Acetaminophen (*Crx) 5-325 Mg Tablet PO Q4H PRN Pain Rated 7-10 Carbidopa/Levodopa 3 tablet 01/01/22 17:00 01/05/22 14:10 Carbidopa/Levodopa 25/100 Mg Tablet PO Not Given QID MARIANA Enoxaparin Sodium 40 mg 12/30/21 09:00 01/09/22 08:02 Enoxaparin 40 Mg/0.4 Ml Syringe SUB-Q 40 mg DAILY MARIANA Administration Hydralazine HCl 10 mg 01/02/22 16:08 01/04/22 05:56 Hydralazine Hcl 20 Mg/Ml Vial IV PUSH 10 mg Q6HR PRN Administration Blood Pressure - High Ibuprofen 800 mg in 200 mls @ 400 mls/hr 12/30/21 18:00 01/09/22 12:06 Caldolor 800 Mg/200 Ml IVPB 400 mls/hr Q6HR MARIANA Administration
[2022-01-09 13:37] LABS: Potassium 2.9 mmol/L (3.4-5.0)
[2022-01-09 14:00] VITALS: BP 145/73; PULSE 59; RESP 20; TEMP 36.7; O2SAT 100
[2022-01-09] MEDS: FAT EMULSIONS IV 20% 250 ML 20 ML IVPB (15:28)
[2022-01-09] MEDS: AMINO ACIDS 5%/D15W/E-LYTES/CA 2,000 ML with MULTIVITAMINS-12 INJ VIAL 1 2.5 ML, MULTIV... 60 ML IV CONT (15:28)
[2022-01-09 19:14] LABS: Potassium 3.2 mmol/L (3.4-5.0)
[2022-01-09 20:52] VITALS: BP 157/84; PULSE 63; RESP 12; TEMP 36.6; O2SAT 97
[2022-01-10] MEDS: IBUPROFEN IV 800 MG/200 ML 800 MG/200 ML BAG 400 MG IVPB ×4 (00:13→17:07)
--- NOTE | 2022-01-10 01:18 | PC.NURSE ---
Daylight Savings Time For Daylight Savings Time Ending in the Fall - Clocks are moved back. For Daylight Savings Time Beginning in the Spring - Clocks are moved ahead. For [facility], the time of change occurs at 0200 hrs. Time is taken from the beverage server. This entry on the patient's chart recognizes the change in time reflected during documentation. Example: 2 entries for vital signs may be charted for 0200 hrs.
[2022-01-10 06:00] VITALS: BP 160/91; PULSE 65; RESP 12; TEMP 36.6; O2SAT 100
[2022-01-10] MEDS: CENTRAL LINE FLUSH 10 ML IV PUSH ×2 (06:13→21:39)
[2022-01-10 07:41] LABS: Glucose Point of Care 112 mg/dl (65-105)
[2022-01-10 08:00] VITALS: PULSE 65; RESP 12; O2SAT 100
[2022-01-10 08:12] LABS: Hematocrit 29.3 % (42.0-52.0); Hemoglobin 9.6 g/dL (14.0-18.0); Mean Corpuscular HGB Conc 32.8 g/dl (32-36); Mean Corpuscular Hemoglobin 30.1 pg (26-34); Mean Corpuscular Volume 91.8 fl (80-100); Mean Platelet Volume 10.6 fl (7.4-10.4); Platelet Count Result 171 k/mm3 (150-375); Red Blood Count 3.19 M/mm3 (4.6-6.20); Red Cell Distribution Width 14.1 % (11.5-14.5); White Blood Count 11.8 K/mm3 (4.5-10.0)
[2022-01-10 08:27] LABS: Anion Gap 11 mmol/L (8-16); Blood Urea Nitrogen 17 mg/dL (9-20); Calcium 7.2 mg/dL (8.4-10.2); Carbon Dioxide 25 mmol/L (22-30); Chloride 101 mmol/L (98-107); Estimated CRCL calculation 68 ml/min; Estimated Glomerular Filt Rate > 60; Glucose 124 mg/dL (65-110); Phosphorus 3.1 mg/dL (2.5-4.5); Potassium 2.8 mmol/L (3.4-5.0); Sodium 137 mmol/L (137-145)
--- NOTE | 2022-01-10 09:00 | PC.NURSE ---
KCL level reported to provider.
[2022-01-10] MEDS: ENOXAPARIN 40 MG/0.4 ML SYRINGE SUB-Q (09:29)
[2022-01-10] MEDS: PANTOPRAZOLE SODIUM IV 40 MG VIAL IV PUSH ×2 (09:29→21:33)
[2022-01-10] MEDS: METOPROLOL TARTRATE INJ 5 MG/5 ML VIAL IV PUSH ×2 (09:30→21:33)
[2022-01-10] MEDS: POTASSIUM CHLORIDE INJ 40 MEQ in SODIUM CHLORIDE 0.9% IV 500 ML 130 MEQ IVPB ×2 (10:06→16:48)
--- NOTE | 2022-01-10 10:42 | PM.PNGS ---
Progress Note: A&P Assessment and Plan (1) Adynamic ileus: Code(s): K56.0 - Paralytic ileus Status: Acute Assessment and Plan: improving. Patient has good bowel sounds and imaging is better. Probably will discontinue NG tube tomorrow. Still had 920 cc out the NG tube yesterday. Overall this is resolving. Once NG tube is out, will repeat modified swallow to see if patient can resume oral intake. (2) Small bowel obstruction with strangulation or infarction: Status: Acute Assessment and Plan: Now 11 days status post surgery. Prolonged ileus but otherwise no evidence complications. Remove wound staple soon. (3) Protein calorie malnutrition: Code(s): E46 - Unspecified protein-calorie malnutrition Status: Acute Assessment and Plan: Continue TPN until able to feed (4) Hypokalemia: Code(s): E87.6 - Hypokalemia Status: Acute Assessment and Plan: despite K riders, continues to have low potassium. Continue to supplement and monitor. (5) Leukocytosis: Code(s): D72.829 - Elevated white blood cell count, unspecified Status: Acute Assessment and Plan: White blood cell count continues to decrease. Eleven thousand eight hundred today. Two days ago it was nearly 20,000. continue NG suction and other measures as above. (6) Parkinsons disease: Code(s): G20 - Parkinson's disease Status: Chronic Assessment and Plan: Not getting Parkinson's med while NPO and with failed swallow. Subjective Subjective Date/Time Seen: 01/10/22 10:42 Post Op day: #11 Patient reports: no new complaints, bowel movement and afebrile Review of Systems Review of Systems: All systems reviewed & are unremarkable except as noted in HPI and below ( HPI and those noted below) Constitutional: Constitutional: Denies chills and Denies fever(s) Cardiovascular: Cardiovascular: Denies chest pain, Denies diaphoresis, Denies dyspnea and Denies paroxysmal nocturnal dyspnea Respiratory: Respiratory: Denies chest congestion, Denies cough and Denies dyspnea Integumentary/Breasts: Skin/Breast: Denies lesions and Denies rash Exam Const: General: comfortable and no acute distress; No confusion Nutritional Appearance: average body habitus GI: Inspection: non-distended and incision ( remains dry and healing well) GI Palp: Yes Soft to palpation, No Tenderness to palpation present (GI), No Guarding due to palpation present (GI) and No Rebound tenderness present Auscultation: normal bowel sounds and normoactive bowel sounds Extrem: General: no calf tenderness and no edema Objective Data Vital Signs Vital Signs: Vital Signs - 24 hr 01/09/22 14:00 01/09/22 20:52 01/10/22 06:00 Temperature 36.7 C 36.6 C 36.6 C Pulse Rate 59 L 63 65 Respiratory Rate 20 12 12 Blood Pressure 145/73 H 157/84 H 160/91 H Pulse Oximetry 100 97 100 Intake/Output Intake/Output: Intake & Output 01/07/22 01/08/22 01/09/22 01/10/22 23:59 23:59 23:59 22:59 Intake Total 2855 4055 5195 450 Output Total 1000 730 920 Balance 1855 3325 4275 450 Meds/Results Medications: Active Medications Generic Name Dose Route Start Last Admin Trade Name Freq PRN Reason Stop Dose Admin Acetaminophen 500 mg 01/01/22 09:32 Acetaminophen 500 Mg Tablet PO Q6H PRN Mild Pain (1-3) or Fever Hydrocodone Bitart/Acetaminophen 1 tab 01/01/22 09:32 Hydrocodone/Acetaminophen (*Crx) 5-325 Mg Tablet PO Q4H PRN Pain Rated 7-10 Carbidopa/Levodopa 3 tablet 01/01/22 17:00 01/05/22 14:10 Carbidopa/Levodopa 25/100 Mg Tablet PO Not Given QID [facility] Enoxaparin Sodium 40 mg 12/30/21 09:00 01/10/22 09:29 Enoxaparin 40 Mg/0.4 Ml Syringe SUB-Q 40 mg DAILY [facility]IANA Administration Hydralazine HCl 10 mg 01/02/22 16:08 01/04/22 05:56 Hydralazine Hcl 20 Mg/Ml Vial IV PUSH 10 mg Q6HR PRN Administration Blood Pressure - High Ibuprofen
--- NOTE | 2022-01-10 11:45 | PM.IMPN ---
Progress Note: A&P Assessment and Plan (1) Small bowel obstruction with strangulation or infarction: Status: Acute Assessment and Plan: CT abd/pelvis suggestive of partial small bowel obstruction. General surgery consulted and appreciate recommendations. Small bowel series with slow transit of contrast out of the stomach after 2 hours and possible closed loop obstruction. 12/30/21 s/p small bowel resection with infarction.? 01/01/22 NG pulled out by patient today. Okay to leave out per surgery. Advanced to clears. Continue lowered dose IV fluids and pain control. Ambulate in the hallway. PT/OT consulted. 01/02/22 No emesis, flatus or BM. Taking in clear liquids without c/o worsening pain. Reinforced ambulating. Patient taking in adequate oral liquids and UOP stable. Saline lock IV fluids. Continue current management. Diet advancement per Surgery. 01/03/2022 patient with N/V with brown bile, Will monitor h/h. 01/04/22: patient to have NG tube placed secondary to physical exam today demonstrating no bowel sounds, but continued nausea and vomiting. Discussed with General surgery and they ordered PICC line placement for TPN initiation as well as NG. It should be noted the patient also failed his modified barium swallow yesterday with a definite abnormal finger NG will state of swallowing placing him at high risk for aspiration. 01/05/[address], no bowel sounds, TPN running, small bowel xray is pending 01/06/22 abd xray dilated small bowel, consistent with adynamic ileus, Small bowel xray: Almost all of the contrast remains in the stomach after 4 hours, NG tube remains in place and is draining a dark green thick bile 01/07/22 stable at this time. still sucking a thick green bile. KUB dilated small bowel likely adynamic ileus 01/08/22 Remained stable. Bile does seem to be more than clear side. small-bowel follow-through does indicate normal transition time consistent with adynamic ileus 01/09/22 Ileus remains. Continue with NG tube and TPN repeat abdomen in the morning 01/10/22 Ileus remains. Continue with NG tube and TPN, abdominal xray does not indicate any current changes (2) Adynamic ileus: Code(s): K56.0 - Paralytic ileus Status: Acute Assessment and Plan: See above (3) Hypokalemia: Code(s): E87.6 - Hypokalemia Status: Acute Assessment and Plan: potassium is 2.8 today replace with 40 mEq x1, then this afternoon repeat potassium 1 hour post infusion replace potassium as indicated Start KCL at 100ml/hr to help with maintainence (4) Parkinsons disease: Code(s): G20 - Parkinson's disease Status: Chronic Assessment and Plan: Currently NPO Restart medication as indicated (5) CKD (chronic kidney disease): Qualifiers: Chronic kidney disease stage: stage 3 (moderate) Chronic kidney disease stage 3 subtype: stage 3a (GFR 45-59) Qualified Code(s): N18.31 - Chronic kidney disease, stage 3a Code(s): N18.9 - Chronic kidney disease, unspecified Status: Chronic Assessment and Plan: BUN 34, creatinine 1.00, GFR >60. Chronic, stable. 01/06/22 Avoid nephrotoxic agents and dehydration. Monitor I/O. 01/04/22: Creatinine today is in increased to 1.4. BUN is 35. Suspect mild dehydration. Will restart IV fluids NS at 100 ml/hr. Surgery managing 01/05/22 stable with BUN/Cr 17/0.60 01/07/22 BUN/Cr 26/0.90 01/08/22 bun/cr 25/0.90 01/09/22 BUN/ creatinine 22/0.90 01/10/22 BUN/Creatinine 17/0.80 (6) Prostate CA: Code(s): C61 - Malignant neoplasm of prostate Status: Chronic Assessment and Plan: Will need some outpatient follow up Will need to wait for some other problems to resolve (7) Hypertension: Qualifiers: Hypertension type: primary hypertension Qualified Code(s): I10 - Essential (primary) hypertension Code(s): I10 -
[2022-01-10 11:48] LABS: Glucose Point of Care 78 mg/dl (65-105)
[2022-01-10 14:00] VITALS: BP 143/74; PULSE 66; RESP 20; TEMP 37.2; O2SAT 97
--- NOTE | 2022-01-10 14:39 | PC.NURSE ---
IV Potassium orders clarified per Dr Tamez.
[2022-01-10] MEDS: AMINO ACIDS 5%/D15W/E-LYTES/CA 2,000 ML with MULTIVITAMINS-12 INJ VIAL 1 2.5 ML, MULTIV... 60 ML IV CONT (16:47)
[2022-01-10] MEDS: FAT EMULSIONS IV 20% 250 ML 20 ML IVPB (16:48)
[2022-01-10 19:07] LABS: Glucose Point of Care 113 mg/dl (65-105)
[2022-01-10 21:33] VITALS: PULSE 61
[2022-01-10 21:53] VITALS: BP 157/76; PULSE 61; RESP 16; TEMP 36.1; O2SAT 99
[2022-01-10 22:11] LABS: Glucose Point of Care 123 mg/dl (65-105)
[2022-01-10] MEDS: KCL 40 MEQ/0.45% NS 1,000 ML 100 ML IV CONT (22:29)
[2022-01-11] MEDS: CENTRAL LINE FLUSH 10 ML IV PUSH ×2 (05:08→21:57)
[2022-01-11] MEDS: IBUPROFEN IV 800 MG/200 ML 800 MG/200 ML BAG 400 MG IVPB (05:22)
[2022-01-11] MEDS: KCL 40 MEQ/0.45% NS 1,000 ML 100 ML IV CONT ×3 (05:32→17:56)
[2022-01-11 05:38] LABS: INR 1.1
[2022-01-11 05:40] LABS: Partial Thromboplastin Time 30.9 SECONDS (22.3-36.8)
[2022-01-11 05:42] LABS: Basophils Absolute Auto 0.1 K/mm3 (0.0-0.1); Basophils Percent Auto 0.6 % (0.2-1.2); Eosinophils Absolute Auto 0.3 K/mm3 (0-0.3); Eosinophils Percent Auto 2.6 % (0-4.4); Hematocrit 31.9 % (42.0-52.0); Hemoglobin 10.6 g/dL (14.0-18.0); Immature Granulocyte Absolute 0.34 K/mm3 (0.00-0.031); Immature Granulocyte Percent A 2.7 % (0-0.5); Lymphocytes Absolute Auto 0.89 K/mm3 (0.9-3.2); Lymphocytes Percent Auto 7.1 % (18.3-44.2); Mean Corpuscular HGB Conc 33.2 g/dl (32-36); Mean Corpuscular Hemoglobin 30.3 pg (26-34); Mean Corpuscular Volume 91.1 fl (80-100); Mean Platelet Volume 10.4 fl (7.4-10.4); Monocytes Percent Auto 7.9 % (2.6-8.5); Neutrophils Absolute Auto 9.9 K/mm3 (1.3-6.7); Neutrophils Percent Auto 79.1 % (45.5-73.1); Platelet Count Result 253 k/mm3 (150-375); Red Cell Distribution Width 13.6 % (11.5-14.5); White Blood Count 12.5 K/mm3 (4.5-10.0)
[2022-01-11 05:51] LABS: Alanine Aminotransferase 34 U/L (6-50); Albumin Level 2.8 g/dL (3.5-5.1); Alkaline Phosphatase 91 U/L (38-126); Anion Gap 4 mmol/L (8-16); Aspartate Amino Transferase 37 U/L (17-59); Bilirubin,Total 0.5 mg/dL (0.2-1.3); Blood Urea Nitrogen 16 mg/dL (9-20); Calcium 7.4 mg/dL (8.4-10.2); Carbon Dioxide 25 mmol/L (22-30); Chloride 102 mmol/L (98-107); Estimated CRCL calculation 68 ml/min; Estimated Glomerular Filt Rate > 60; Glucose 126 mg/dL (65-110); Magnesium 1.9 mg/dL (1.6-2.3); Phosphorus 2.9 mg/dL (2.5-4.5); Potassium 3.7 mmol/L (3.4-5.0); Sodium 131 mmol/L (137-145)
[2022-01-11 05:58] LABS: Transferrin 92 mg/dL (206-381)
[2022-01-11 06:00] VITALS: BP 161/93; PULSE 78; RESP 18; TEMP 36.3; O2SAT 100
[2022-01-11 08:00] VITALS: PULSE 78; RESP 18; O2SAT 100
[2022-01-11] MEDS: METOPROLOL TARTRATE INJ 5 MG/5 ML VIAL IV PUSH ×2 (08:33→21:57)
[2022-01-11] MEDS: PANTOPRAZOLE SODIUM IV 40 MG VIAL IV PUSH ×2 (08:34→21:57)
[2022-01-11] MEDS: ENOXAPARIN 40 MG/0.4 ML SYRINGE SUB-Q (08:34)
[2022-01-11 09:55] LABS: Triglycerides 178 mg/dL (<150)
--- NOTE | 2022-01-11 11:00 | PM.IMPN ---
Progress Note: A&P Assessment and Plan (1) Small bowel obstruction with strangulation or infarction: Status: Acute Assessment and Plan: CT abd/pelvis suggestive of partial small bowel obstruction. General surgery consulted and appreciate recommendations. Small bowel series with slow transit of contrast out of the stomach after 2 hours and possible closed loop obstruction. 12/30/21 s/p small bowel resection with infarction.? 01/01/22 NG pulled out by patient today. Okay to leave out per surgery. Advanced to clears. Continue lowered dose IV fluids and pain control. Ambulate in the hallway. PT/OT consulted. 01/02/22 No emesis, flatus or BM. Taking in clear liquids without c/o worsening pain. Reinforced ambulating. Patient taking in adequate oral liquids and UOP stable. Saline lock IV fluids. Continue current management. Diet advancement per Surgery. 01/03/2022 patient with N/V with brown bile, Will monitor h/h. 01/04/22: patient to have NG tube placed secondary to physical exam today demonstrating no bowel sounds, but continued nausea and vomiting. Discussed with General surgery and they ordered PICC line placement for TPN initiation as well as NG. It should be noted the patient also failed his modified barium swallow yesterday with a definite abnormal finger NG will state of swallowing placing him at high risk for aspiration. 01/05/[address], no bowel sounds, TPN running, small bowel xray is pending 01/06/22 abd xray dilated small bowel, consistent with adynamic ileus, Small bowel xray: Almost all of the contrast remains in the stomach after 4 hours, NG tube remains in place and is draining a dark green thick bile 01/07/22 stable at this time. still sucking a thick green bile. KUB dilated small bowel likely adynamic ileus 01/08/22 Remained stable. Bile does seem to be more than clear side. small-bowel follow-through does indicate normal transition time consistent with adynamic ileus 01/09/22 Ileus remains. Continue with NG tube and TPN repeat abdomen in the morning 01/10/22 Ileus remains. Continue with NG tube and TPN, abdominal xray does not indicate any current changes 01/11/22 NG tube is out, appears comfortable, TPN remains intact, continue to trend labs (2) Adynamic ileus: Code(s): K56.0 - Paralytic ileus Status: Acute Assessment and Plan: See above (3) Hypokalemia: Code(s): E87.6 - Hypokalemia Status: Acute Assessment and Plan: potassium is 3.7 today replace potassium as indicated Start KCL at 100ml/hr to help with maintainence (4) Parkinsons disease: Code(s): G20 - Parkinson's disease Status: Chronic Assessment and Plan: Currently NPO Restart medication as indicated (5) CKD (chronic kidney disease): Qualifiers: Chronic kidney disease stage: stage 3 (moderate) Chronic kidney disease stage 3 subtype: stage 3a (GFR 45-59) Qualified Code(s): N18.31 - Chronic kidney disease, stage 3a Code(s): N18.9 - Chronic kidney disease, unspecified Status: Chronic Assessment and Plan: BUN 34, creatinine 1.00, GFR >60. Chronic, stable. 01/06/22 Avoid nephrotoxic agents and dehydration. Monitor I/O. 01/04/22: Creatinine today is in increased to 1.4. BUN is 35. Suspect mild dehydration. Will restart IV fluids NS at 100 ml/hr. Surgery managing 01/05/22 stable with BUN/Cr 17/0.60 01/07/22 BUN/Cr 26/0.90 01/08/22 bun/cr 25/0.90 01/09/22 BUN/ creatinine 22/0.90 01/10/22 BUN/Creatinine 17/0.80 01/11/22 BUN/Cr 16/0.80 (6) Prostate CA: Code(s): C61 - Malignant neoplasm of prostate Status: Chronic Assessment and Plan: Will need some outpatient follow up Will need to wait for some other problems to resolve (7) Hypertension: Qualifiers: Hypertension type: primary hypertension Qualified Code(s): I10 - Essential (primary) hypertensi
--- NOTE | 2022-01-11 12:17 | PM.PNGS ---
Progress Note: A&P Assessment and Plan (1) Adynamic ileus: Code(s): K56.0 - Paralytic ileus Status: Acute Assessment and Plan: Continues to improve. Imaging improved and he has good bowel sounds. Will remove NG tube today. Since he failed his modified swallow, will continue TPN for nutrition. Will repeat modified swallow study again tomorrow. If he fails again, then we will likely consult GI for PEG tube placement. (2) Small bowel obstruction with strangulation or infarction: Status: Acute Assessment and Plan: Incision healing well. Will remove the montse today and place steri-strips. PT/OT following to continue working on strength and increasing activity. (3) Protein calorie malnutrition: Code(s): E46 - Unspecified protein-calorie malnutrition Status: Acute Assessment and Plan: Continue TPN until able to feed (4) Hypokalemia: Code(s): E87.6 - Hypokalemia Status: Acute Assessment and Plan: Potassium up to 3.7 today. Continue to replace as needed. (5) Leukocytosis: Code(s): D72.829 - Elevated white blood cell count, unspecified Status: Acute (6) Parkinsons disease: Code(s): G20 - Parkinson's disease Status: Chronic Assessment and Plan: Hopefully can resume his Parkinson's medications if he passes the swallow study tomorrow. Plan I have discussed the patient's case and plan of care with Dr. Tamez. Subjective Subjective Date/Time Seen: 01/11/22 11:37 Post Op day: 12 (Small bowel resection) Patient reports: no new complaints, flatus, bowel movement and afebrile Interval history: Patient seen and examined. Chart reviewed since last seen. He is feeling well today. No specific complaints. Denies abdominal pain, nausea, or vomiting. He has not had a bowel movement yet today, but is asking to get up to the commode for a BM now. No other complaints at this time. Review of Systems Review of Systems: All systems reviewed & are unremarkable except as noted in HPI and below Exam Const: General: comfortable, no acute distress and awake Orientation/consciousness: patient oriented x3 GI: Inspection: non-distended and incision ( remains dry and healing well) GI Palp: Yes Soft to palpation, No Tenderness to palpation present (GI) and No Guarding due to palpation present (GI) Auscultation: normal bowel sounds Neuro: General: moves all extremities and no focal motor deficits Extrem: General: no calf tenderness and no edema Psych: Mental Status: mental status grossly normal Objective Data Vital Signs Vital Signs: Vital Signs - 24 hr 01/10/22 14:00 01/10/22 21:33 01/10/22 21:53 Temperature 98.9 F 97.0 F L Pulse Rate 66 61 61 Respiratory Rate 20 16 Blood Pressure 143/74 H 157/76 H Pulse Oximetry 97 99 Oxygen Delivery 01/10/22 20:00 01/11/22 06:00 01/11/22 08:00 Temperature 97.3 F L Pulse Rate 78 78 Respiratory Rate 18 18 Blood Pressure 161/93 H Pulse Oximetry 100 100 Oxygen Delivery Room Air Room Air Intake/Output Intake/Output: Intake & Output 01/09/22 01/10/22 01/10/22 01/11/22 00:59 00:59 23:59 23:59 Intake Total 1130 Output Total 900 Balance 230 Meds/Results Medications: Active Medications Generic Name Dose Route Start Last Admin Trade Name Freq PRN Reason Stop Dose Admin Acetaminophen 500 mg 01/01/22 09:32 Acetaminophen 500 Mg Tablet PO Q6H PRN Mild Pain (1-3) or Fever Hydrocodone Bitart/Acetaminophen 1 tab 01/01/22 09:32 Hydrocodone/Acetaminophen (*Crx) 5-325 Mg Tablet PO Q4H PRN Pain Rated 7-10 Carbidopa/Levodopa 3 tablet 01/01/22 17:00 01/05/22 14:10 Carbidopa/Levodopa 25/100 Mg Tablet PO Not Given QID [facility] Enoxaparin Sodium 40 mg 12/30/21 09:00 01/11/22 08:34 Enoxaparin 40 Mg/0.4 Ml Syringe SUB-Q 40 mg DAILY MARIANA Administration Hydralazine HCl 10 mg 01/02/22 16:08 01/04/22 05:56 Hyd
[2022-01-11 12:31] LABS: Glucose Point of Care 108 mg/dl (65-105)
[2022-01-11 15:56] VITALS: BP 143/83; PULSE 69; RESP 20; TEMP 36.8; O2SAT 100
[2022-01-11] MEDS: FAT EMULSIONS IV 20% 250 ML 20 ML IVPB (16:28)
[2022-01-11] MEDS: AMINO ACIDS 5%/D15W/E-LYTES/CA 2,000 ML with MULTIVITAMINS-12 INJ VIAL 1 2.5 ML, MULTIV... 60 ML IV CONT (16:28)
[2022-01-11 18:26] LABS: Glucose Point of Care 108 mg/dl (65-105)
[2022-01-11 21:57] VITALS: PULSE 69
[2022-01-11 22:00] VITALS: BP 132/76; PULSE 73; RESP 20; TEMP 36.7; O2SAT 98
[2022-01-11 22:20] LABS: Glucose Point of Care 117 mg/dl (65-105)
[2022-01-12 00:40] LABS: Glucose Point of Care 117 mg/dl (65-105)
[2022-01-12] MEDS: KCL 40 MEQ/0.45% NS 1,000 ML 100 ML IV CONT ×2 (04:54→15:21)
[2022-01-12] MEDS: CENTRAL LINE FLUSH 10 ML IV PUSH ×2 (04:55→20:28)
[2022-01-12 05:00] VITALS: BP 154/80; PULSE 89; RESP 16; TEMP 36.4; O2SAT 95
[2022-01-12] MEDS: CENTRAL LINE FLUSH 20 ML IV PUSH (05:19)
[2022-01-12 05:32] LABS: Anion Gap 8 mmol/L (8-16); Blood Urea Nitrogen 16 mg/dL (9-20); Calcium 7.8 mg/dL (8.4-10.2); Carbon Dioxide 25 mmol/L (22-30); Chloride 101 mmol/L (98-107); Estimated CRCL calculation 59 ml/min; Estimated Glomerular Filt Rate > 60; Glucose 100 mg/dL (65-110); Potassium 4.1 mmol/L (3.4-5.0); Sodium 134 mmol/L (137-145)
[2022-01-12 06:05] LABS: Glucose Point of Care 96 mg/dl (65-105)
--- NOTE | 2022-01-12 07:07 | PM.PNGS ---
Progress Note: A&P Assessment and Plan (1) Small bowel obstruction with strangulation or infarction: Status: Acute Assessment and Plan: bowel resected. Bowel function has returned. Wound healing well. Tolerated NG tube removal with no evidence of abdominal distension and acted normal bowel sounds. Will repeat modified swallow today and see if possibly patient can have oral intake and particularly his Parkinson's medication. (2) Adynamic ileus: Code(s): K56.0 - Paralytic ileus Status: Resolved Assessment and Plan: Appears resolved. (3) Protein calorie malnutrition: Code(s): E46 - Unspecified protein-calorie malnutrition Status: Acute Assessment and Plan: Continue TPN for now. Subjective Subjective Date/Time Seen: 01/12/22 07:07 Post Op day: #13 Patient reports: no new complaints, bowel movement and afebrile Review of Systems Review of Systems: All systems reviewed & are unremarkable except as noted in HPI and below ( HPI) Exam GI: Inspection: non-distended and incision ( montse out, Steri-Strips in place, wound looks good) GI Palp: Yes Soft to palpation and No Tenderness to palpation present (GI) Auscultation: normoactive bowel sounds Objective Data Vital Signs Vital Signs: Vital Signs - 24 hr 01/11/22 08:00 01/11/22 15:56 01/11/22 21:57 Temperature 36.8 C Pulse Rate 78 69 69 Respiratory Rate 18 20 Blood Pressure 143/83 H Pulse Oximetry 100 100 Oxygen Delivery Room Air 01/11/22 22:00 01/11/22 20:00 01/12/22 05:00 Temperature 36.7 C 36.4 C L Pulse Rate 73 89 Respiratory Rate 20 16 Blood Pressure 132/76 154/80 H Pulse Oximetry 98 95 Oxygen Delivery Room Air Intake/Output Intake/Output: Intake & Output 01/10/22 01/10/22 01/11/22 01/12/22 00:59 23:59 23:59 23:59 Intake Total 4385 1000 Output Total 900 Balance 3485 1000 Meds/Results Medications: Active Medications Generic Name Dose Route Start Last Admin Trade Name Freq PRN Reason Stop Dose Admin Acetaminophen 500 mg 01/01/22 09:32 Acetaminophen 500 Mg Tablet PO Q6H PRN Mild Pain (1-3) or Fever Hydrocodone Bitart/Acetaminophen 1 tab 01/01/22 09:32 Hydrocodone/Acetaminophen (*Crx) 5-325 Mg Tablet PO Q4H PRN Pain Rated 7-10 Carbidopa/Levodopa 3 tablet 01/01/22 17:00 01/05/22 14:10 Carbidopa/Levodopa 25/100 Mg Tablet PO Not Given QID [facility] Enoxaparin Sodium 40 mg 12/30/21 09:00 01/11/22 08:34 Enoxaparin 40 Mg/0.4 Ml Syringe SUB-Q 40 mg DAILY MARIANA Administration Hydralazine HCl 10 mg 01/02/22 16:08 01/04/22 05:56 Hydralazine Hcl 20 Mg/Ml Vial IV PUSH 10 mg Q6HR PRN Administration Blood Pressure - High Ibuprofen 800 mg in 200 mls @ 400 mls/hr 01/01/22 09:32 Caldolor 800 Mg/200 Ml IVPB Q6H PRN Pain Rated 1-3 Dextrose 1,000 mls @ 50 mls/hr 01/04/22 11:02 Dextrose 10% IV CONT .Q20H PRN if PN is interrupted Multivitamins 2.5 ml/ 2,005 mls @ 60 mls/hr 01/04/22 16:00 01/11/22 16:28 Multivitamins 2.5 ml/ Amino IV CONT 60 mls/hr Acids/Electrolytes/Dextrose .Q24H MARIANA Administration Protocol Fat Emulsion Intravenous 250 mls @ 20 mls/hr 01/04/22 16:00 01/11/22 16:28 Lipids 20% IVPB 20 mls/hr Q24H MARIANA Administration Potassium Chloride/Sodium Chloride 1,000 mls @ 100 mls/hr 01/10/22 13:45 01/12/22 04:54 Kcl 40 Meq/0.45% Ns IV CONT 100 mls/hr .Q10H [facility]IANA Administration Metoprolol Succinate 25 mg 01/01/22 09:00 01/05/22 15:04 Metoprolol Succinate Ext Rel 25 Mg Tabcr BY MOUTH Not Given DAILY [facility] Metoprolol Tartrate 5 mg 01/05/22 21:00 01/11/22 21:57 Metoprolol Tartrate Inj 5 Mg/5 Ml Vial IV PUSH 5 mg Q12H [facility]IANA Administration Ondansetron HCl 4 mg 12/29/21 21:15 01/04/22 21:52 Ondansetron Inj 4 Mg/2 Ml Vial IV PUSH 4 mg Q4H PRN Administration Nausea Pantoprazole Sodium 40 mg 01/02/22 09:00
[2022-01-12 08:05] LABS: Hematocrit 33.2 % (42.0-52.0); Hemoglobin 11.2 g/dL (14.0-18.0); Mean Corpuscular HGB Conc 33.7 g/dl (32-36); Mean Corpuscular Hemoglobin 30.4 pg (26-34); Mean Corpuscular Volume 90.2 fl (80-100); Mean Platelet Volume 9.7 fl (7.4-10.4); Platelet Count Result 253 k/mm3 (150-375); Red Blood Count 3.68 M/mm3 (4.6-6.20); Red Cell Distribution Width 13.7 % (11.5-14.5); White Blood Count 11.8 K/mm3 (4.5-10.0)
--- NOTE | 2022-01-12 09:24 | PCSTNOTE ---
Please refer to the Modified Barium Swallow Evaluation in the EMR.
[2022-01-12] MEDS: ENOXAPARIN 40 MG/0.4 ML SYRINGE SUB-Q (09:57)
[2022-01-12] MEDS: PANTOPRAZOLE SODIUM IV 40 MG VIAL IV PUSH ×2 (09:58→20:27)
[2022-01-12] MEDS: METOPROLOL TARTRATE INJ 5 MG/5 ML VIAL IV PUSH ×2 (09:58→20:26)
--- NOTE | 2022-01-12 10:36 | PCNFU ---
Nutrition Follow-Up Complete: Severe malnutrition related to ileus vs small bowel obstruction, as evidenced by weight loss 11%/6 months, severe muscle wasting, and need for parenteral nutrition. goal: Tolerate TPN at goal rate-meeting goal. Advance to PO intake as medically able-limited progress towards goal Pt current nutrition is TPN. Last recorded weight is 75 kg, down 10 ibs since admit per EMR weights. Bowel Motility: +BM reported 01/09 Labs Reviewed:Na 134,Hct 33.2,Hgb 11.2 Meds Noted:Lovenox, Zofran, miralax, KCL, Clinimix E 07/19 at 60 m/hr with 250 ml of 20% Lipid Emulsion Skin: WNL Additional Notes: Nutrition follow up. Patient had MBS today, recommending non oral feedings. Discussed nutrition with nursing and hospitalist today. PEG tube recommended. Plans to keep patient on TPN until discussions with family. Tube feeding recommendations: Jevity 1.2 at 20 ml/hr advance by 10 ml q 4 hours to goal rate of 75 ml/hr. Tube feeding will providing 1980 kcals/92 gms protein/1332 ml water. Free water flush 30 ml q 4hours. TPN is currently providing 1522 kcals/72 gms protein.Meeting 76% caloric needs and 100% protein needs. Monitoring labs, intakes, weights, diet advancement, plan of care. Follow up Tuesdays and Fridays per policy
[2022-01-12 12:04] LABS: Glucose Point of Care 98 mg/dl (65-105)
--- NOTE | 2022-01-12 12:15 | PM.IMPN ---
Progress Note: A&P Assessment and Plan (1) Small bowel obstruction with strangulation or infarction: Status: Acute Assessment and Plan: CT abd/pelvis suggestive of partial small bowel obstruction. General surgery consulted and appreciate recommendations. Small bowel series with slow transit of contrast out of the stomach after 2 hours and possible closed loop obstruction. 12/30/21 s/p small bowel resection with infarction.? 01/01/22 NG pulled out by patient today. Okay to leave out per surgery. Advanced to clears. Continue lowered dose IV fluids and pain control. Ambulate in the hallway. PT/OT consulted. 01/02/22 No emesis, flatus or BM. Taking in clear liquids without c/o worsening pain. Reinforced ambulating. Patient taking in adequate oral liquids and UOP stable. Saline lock IV fluids. Continue current management. Diet advancement per Surgery. 01/03/2022 patient with N/V with brown bile, Will monitor h/h. 01/04/22: patient to have NG tube placed secondary to physical exam today demonstrating no bowel sounds, but continued nausea and vomiting. Discussed with General surgery and they ordered PICC line placement for TPN initiation as well as NG. It should be noted the patient also failed his modified barium swallow yesterday with a definite abnormal finger NG will state of swallowing placing him at high risk for aspiration. 01/05/[address], no bowel sounds, TPN running, small bowel xray is pending 01/06/22 abd xray dilated small bowel, consistent with adynamic ileus, Small bowel xray: Almost all of the contrast remains in the stomach after 4 hours, NG tube remains in place and is draining a dark green thick bile 01/07/22 stable at this time. still sucking a thick green bile. KUB dilated small bowel likely adynamic ileus 01/08/22 Remained stable. Bile does seem to be more than clear side. small-bowel follow-through does indicate normal transition time consistent with adynamic ileus 01/09/22 Ileus remains. Continue with NG tube and TPN repeat abdomen in the morning 01/10/22 Ileus remains. Continue with NG tube and TPN, abdominal xray does not indicate any current changes 01/11/22 NG tube is out, appears comfortable, TPN remains intact, continue to trend labs 01/12/22 TPN still running. Modified swallow unsuccessful again. GI consulted (2) Adynamic ileus: Code(s): K56.0 - Paralytic ileus Status: Resolved Assessment and Plan: See above (3) Hypokalemia: Code(s): E87.6 - Hypokalemia Status: Acute Assessment and Plan: potassium is 4.1 today replace potassium as indicated Start KCL at 100ml/hr to help with maintenance Continue to trend labs (4) Parkinsons disease: Code(s): G20 - Parkinson's disease Status: Chronic Assessment and Plan: Currently NPO Restart medication as indicated (5) CKD (chronic kidney disease): Qualifiers: Chronic kidney disease stage: stage 3 (moderate) Chronic kidney disease stage 3 subtype: stage 3a (GFR 45-59) Qualified Code(s): N18.31 - Chronic kidney disease, stage 3a Code(s): N18.9 - Chronic kidney disease, unspecified Status: Chronic Assessment and Plan: BUN 34, creatinine 1.00, GFR >60. Chronic, stable. 01/06/22 Avoid nephrotoxic agents and dehydration. Monitor I/O. 01/04/22: Creatinine today is in increased to 1.4. BUN is 35. Suspect mild dehydration. Will restart IV fluids NS at 100 ml/hr. Surgery managing 01/05/22 stable with BUN/Cr 17/0.60 01/07/22 BUN/Cr 26/0.90 01/08/22 bun/cr 25/0.90 01/09/22 BUN/ creatinine 22/0.90 01/10/22 BUN/Creatinine 17/0.80 01/11/22 BUN/Cr 16/0.80 01/12/22 BUN/Cr 16/0.80 (6) Prostate CA: Code(s): C61 - Malignant neoplasm of prostate Status: Chronic Assessment and Plan: Will need some outpatient follow up Will need to wait for some other problems to resolve (7) Hyp
--- NOTE | 2022-01-12 12:15 | P.PNIM_ITS ---
Progress Note: A&P Assessment and Plan (1) Small bowel obstruction with strangulation or infarction: Status: Acute Assessment and Plan: * CT abd/pelvis suggestive of partial small bowel obstruction. * General surgery consulted and appreciate recommendations. * Small bowel series with slow transit of contrast out of the stomach after 2 hours and possible closed loop obstruction. * 12/30/21 s/p small bowel resection with infarction.? * 01/01/22 NG pulled out by patient today. Okay to leave out per surgery. Advanced to clears. Continue lowered dose IV fluids and pain control. Ambulate in the hallway. PT/OT consulted. * 01/02/22 No emesis, flatus or BM. Taking in clear liquids without c/o worsening pain. Reinforced ambulating. Patient taking in adequate oral liquids and UOP stable. Saline lock IV fluids. Continue current management. Diet advancement per Surgery. * 01/03/2022 patient with N/V with brown bile, Will monitor h/h. * 01/04/22: patient to have NG tube placed secondary to physical exam today demonstrating no bowel sounds, but continued nausea and vomiting. Discussed with General surgery and they ordered PICC line placement for TPN initiation as well as NG. It should be noted the patient also failed his modified barium swallow yesterday with a definite abnormal finger NG will state of swallowing placing him at high risk for aspiration. * 01/05/[address], no bowel sounds, TPN running, small bowel xray is pending * 01/06/22 abd xray dilated small bowel, consistent with adynamic ileus, Small bowel xray: Almost all of the contrast remains in the stomach after 4 hours, NG tube remains in place and is draining a dark green thick bile * 01/07/22 stable at this time. still sucking a thick green bile. KUB dilated small bowel likely adynamic ileus * 01/08/22 Remained stable. Bile does seem to be more than clear side. small- bowel follow-through does indicate normal transition time consistent with adynamic ileus * 01/09/22 Ileus remains. Continue with NG tube and TPN repeat abdomen in the morning * 01/10/22 Ileus remains. Continue with NG tube and TPN, abdominal xray does not indicate any current changes * 01/11/22 NG tube is out, appears comfortable, TPN remains intact, continue to trend labs * 01/12/22 TPN still running. Modified swallow unsuccessful again. GI consulted (2) Adynamic ileus: Code(s): K56.0 - Paralytic ileus Status: Resolved Assessment and Plan: * See above (3) Hypokalemia: Code(s): E87.6 - Hypokalemia Status: Acute Assessment and Plan: * potassium is 4.1 today * replace potassium as indicated * Start KCL at 100ml/hr to help with maintenance * Continue to trend labs (4) Parkinsons disease: Code(s): G20 - Parkinson's disease Status: Chronic Assessment and Plan: Currently NPO Restart medication as indicated (5) CKD (chronic kidney disease): Qualifiers: Chronic kidney disease stage: stage 3 (moderate) Chronic kidney disease stage 3 subtype: stage 3a (GFR 45-59) Qualified Code(s): N18.31 - Chronic kidney disease, stage 3a Code(s): N18.9 - Chronic kidney disease, unspecified Status: Chronic Assessment and Plan: BUN 34, creatinine 1.00, GFR >60. Chronic, stable. 01/06/22 Avoid nephrotoxic agents and dehydration. Monitor I/O. 01/04/22: Creatinine today is in increased to 1.4. BUN is 35. Suspect mild dehydration. Will restart IV fluids NS at 100 ml/hr. Surgery managin
[2022-01-12 13:50] VITALS: BP 113/73; PULSE 65; RESP 20; TEMP 36.2; O2SAT 100
[2022-01-12] MEDS: AMINO ACIDS 5%/D15W/E-LYTES/CA 2,000 ML with MULTIVITAMINS-12 INJ VIAL 1 2.5 ML, MULTIV... 60 ML IV CONT (15:21)
[2022-01-12] MEDS: FAT EMULSIONS IV 20% 250 ML 20 ML IVPB (15:22)
--- NOTE | 2022-01-12 16:20 | WPDGICN ---
GI Consult Note Consult date/time: 01/12/22 16:20 Reason for consult: dysphagia HPI: Abdulaziz Goins is a 81 year old male [facility] Past Medical History Medical History (Updated 01/12/22 @ 07:10 by Quintin Tamez MD) BPH (benign prostatic hyperplasia) CKD (chronic kidney disease) stage 3 Hyperlipidemia Hypertension Overweight (BMI 25.0-29.9) Parkinsons disease Prostate CA Surgical History Surgical History History of transurethral resection of prostate Family History Family History Father Family history of cardiovascular disease Family history of elevated blood lipids Diabetes mellitus Suicide Mother Family history of malignant neoplasm of breast in first degree relative Other Hypertension Social History Social History Smoking packs per day: 3 Smoking cigarettes per day: 60.0 Years smoked: 11 Smoking pack-years: 33.00 Smoking status: Former smoker Tobacco type: cigars Second hand tobacco smoke exposure: No Alcohol intake: former Drinks per week: 2 Alcohol use details: rare use Substance use: former Substance use type: does not use Has the Lack of Transportation Kept You From Medical Appointments or From Getting Medications?: No Within the Past 12 Months, Were You Worried Whether Your Food Would Run Out Before You Got Money to Buy More?: Never True What is Your Housing Situation Today?: I Have Housing Are You Worried That in the Next 2 Months, You May Not Have Your Own Housing to Live In?: No Do You Have Trouble Paying Your Heating Or Electricity Bill?: No Do You Have Trouble Paying For Medicines?: No Are You Currently Unemployed and Looking for Work?: No Highest Level of Education Completed: High School Diploma/GED Do You Have Trouble With Childcare or the Care of a Family Member?: No Additional living arrangements comments: son visits often; neighbor Torrey checks on him; patient has life alert Gender identity (if verbalized by the patient): Male Sexual Orientation (if Verbalized by the Patient): Straight or Heterosexual Spiritual care concerns: No Meds Home Medications and Allergies Home Medications Medication Instructions Recorded Confirmed Type aspirin 81 mg tablet,delayed 81 mg PO DAILY 04/19/19 12/30/21 History release rosuvastatin 10 mg tablet 10 mg PO DAILY 10/15/20 12/30/21 History omeprazole 20 mg capsule,delayed See Rx Instructions .Route 06/17/21 12/30/21 Rx release .COMPLEX #90 caps ropinirole 1 mg tablet See Rx Instructions .Route 06/17/21 12/30/21 Rx .COMPLEX #540 tabs metoprolol succinate 25 mg See Rx Instructions .Route 09/15/21 12/30/21 Rx tablet,extended release 24 hr .COMPLEX #90 tabs docusate sodium 100 mg capsule 100 mg PO DAILY #30 caps 10/09/21 12/30/21 Rx (Colace) hydrocodone 5 mg-acetaminophen 325 1 - 2 tablet PO Q6H PRN pain #20 10/09/21 12/30/21 Rx mg tablet tabs carbidopa 25 mg-levodopa 100 mg See Rx Instructions .Route 12/14/21 12/30/21 Rx tablet .COMPLEX #1,080 tabs Allergies Allergy/AdvReac Type Severity Reaction Status Date / Time No Known Allergies Allergy Verified 12/29/21 15:36 Vital Signs Vital Signs - 24 hr 01/11/22 21:57 01/11/22 22:00 01/11/22 20:00 Temperature 98.0 F Pulse Rate 69 73 Respiratory Rate 20 Blood Pressure 132/76 Pulse Oximetry 98 Oxygen Delivery Room Air 01/12/22 05:00 01/12/22 09:58 01/12/22 13:50 Temperature 97.5 F L 97.1 F L Pulse Rate 89 65 Respiratory Rate 16 20 Blood Pressure 154/80 H 113/73 Pulse Oximetry 95 100 Oxygen Delivery Room Air Results Labs CBC & Chem 7: 01/12/22 07:54 01/12/22 05:14 Labs: Short CBC 01/12/22 Range/Units 07:54 WBC 11.8 H (4.5-10.0) K/mm3 Hgb 11.2 L (14.0-18.0) g/dL Hct 33.2 L
[2022-01-12 20:26] VITALS: PULSE 64
[2022-01-12 22:00] VITALS: BP 125/74; PULSE 67; RESP 16; TEMP 36.2; O2SAT 98
[2022-01-13 00:51] LABS: Glucose Point of Care 114 mg/dl (65-105)
[2022-01-13] MEDS: KCL 40 MEQ/0.45% NS 1,000 ML 100 ML IV CONT ×3 (01:12→21:32)
[2022-01-13] MEDS: CENTRAL LINE FLUSH 10 ML IV PUSH ×3 (05:53→20:27)
[2022-01-13 05:59] LABS: Anion Gap 9 mmol/L (8-16); Blood Urea Nitrogen 17 mg/dL (9-20); Calcium 7.7 mg/dL (8.4-10.2); Carbon Dioxide 23 mmol/L (22-30); Chloride 103 mmol/L (98-107); Estimated CRCL calculation 53 ml/min; Estimated Glomerular Filt Rate > 60; Glucose 97 mg/dL (65-110); Potassium 4.3 mmol/L (3.4-5.0); Sodium 135 mmol/L (137-145)
[2022-01-13 06:00] VITALS: BP 114/79; PULSE 72; RESP 16; TEMP 36.4; O2SAT 99
[2022-01-13 06:35] LABS: Glucose Point of Care 118 mg/dl (65-105)
--- NOTE | 2022-01-13 07:18 | WPDGICN ---
Assessment and Plan Assessment and plan (1) Dysphagia: Code(s): R13.10 - Dysphagia, unspecified Status: Acute Assessment and Plan: Patient's dysphagia is oral pharyngeal in nature. Likely related to his Parkinson's disease. I suspect this is aggravated initially because of inability to receive medications for extended period of time. Also could be related to having required intubation and prolonged NG tube decompression. At the present time would recommend conservative therapy. Consider a Dobbhoff tube for nutrition initially. As patient was tolerating medications and diet prior to his small-bowel obstruction I would anticipate this should recover, and he should return to baseline, given the opportunity. (2) Adynamic ileus: Code(s): K56.0 - Paralytic ileus Status: Resolved Assessment and Plan: Postoperative ileus appears resolved at present. (3) Small bowel obstruction with strangulation or infarction: Status: Acute Assessment and Plan: Small-bowel obstruction and strangulation with infarction now status post surgical therapy. (4) Parkinsons disease: Code(s): G20 - Parkinson's disease Status: Chronic Assessment and Plan: Longstanding history of Parkinson's disease. Plan to resume medications as previously prescribed. GI Consult Note Consult date/time: 01/13/22 07:18 Reason for consult: Failed modified barium swallow HPI: Abdulaziz Goins is a 81 year old male I am asked to see at the request of the hospitalist service because of a failed modified barium swallow study. Patient has an underlying history of Parkinson's disease. Admitted to the hospital on 12/29/2021 with small-bowel obstruction. Patient underwent small-bowel resection on 12/29 with a strangulated small-bowel and infarction. Postoperatively patient developed an ileus. He required NG tube decompression until NG tube was removed on 01/11/2022. During this interval of time he was unable to received Parkinson's medications. Modified barium swallow initially performed on 01/03 in repeated on 01/12/2022 revealed difficulty swallowing, it was felt not safe. An aspiration risk was felt present during the studies. Review of Systems Review of Systems: review of systems noncontributory. [facility] Past Medical History Medical History (Updated 01/13/22 @ 07:21 by Chung Mcgovern MD) BPH (benign prostatic hyperplasia) CKD (chronic kidney disease) stage 3 Hyperlipidemia Hypertension Overweight (BMI 25.0-29.9) Parkinsons disease Prostate CA Surgical History Surgical History History of transurethral resection of prostate Family History Family History Father Family history of cardiovascular disease Family history of elevated blood lipids Diabetes mellitus Suicide Mother Family history of malignant neoplasm of breast in first degree relative Other Hypertension Social History Social History Smoking packs per day: 3 Smoking cigarettes per day: 60.0 Years smoked: 11 Smoking pack-years: 33.00 Smoking status: Former smoker Tobacco type: cigars Second hand tobacco smoke exposure: No Alcohol intake: former Drinks per week: 2 Alcohol use details: rare use Substance use: former Substance use type: does not use Lack of Transportation: No Lack of Food: Never True Current Housing: I Have Housing Concerned About Future Housing: No Difficulty Paying Gas/Electric Bills: No Difficulty Paying for Meds: No Currently Unemployed: No Education: High School Diploma/GED Difficulty w/ Childcare or Family Care: No Additional living arrangements comments: son visits often; neighbor Torrey checks on him; patient has life alert Gender identity (if verbalized by the patient): Male Sexu
[2022-01-13 08:04] VITALS: PULSE 70
[2022-01-13] MEDS: PANTOPRAZOLE SODIUM IV 40 MG VIAL IV PUSH ×2 (08:04→20:27)
[2022-01-13] MEDS: ENOXAPARIN 40 MG/0.4 ML SYRINGE SUB-Q (08:04)
[2022-01-13] MEDS: METOPROLOL TARTRATE INJ 5 MG/5 ML VIAL IV PUSH ×2 (08:04→20:25)
[2022-01-13 08:10] LABS: Glucose Point of Care 117 mg/dl (65-105)
--- NOTE | 2022-01-13 08:44 | PM.PNGS ---
Progress Note: A&P Assessment and Plan (1) Small bowel obstruction with strangulation or infarction: Status: Acute Assessment and Plan: Status post resection 2 weeks ago. It appears bowel function is now normal. Wound is healing well. Little for surgery to do at this point. (2) Parkinsons disease: Code(s): G20 - Parkinson's disease Status: Chronic Assessment and Plan: Has not been on his medications for quite some time due to a dynamic ileus postop (3) Protein calorie malnutrition: Code(s): E46 - Unspecified protein-calorie malnutrition Status: Acute Assessment and Plan: Continue TPN for now. I talked to the patient about the need for a PEG tube. I explained that it may well be after he has resumes his medications and recovers more following the surgery that he will be able to swallow effectively and the G-tube can be removed. For now there is very little option other than placement to provide nutrition. Patient did agree to go ahead with the gastrostomy tube placement. I will re-consult Dr. Camargo. (4) Dysphagia: Code(s): R13.10 - Dysphagia, unspecified Status: Acute Assessment and Plan: Flunked modified swallow on Tuesday. Patient now agrees to gastrostomy tube. Subjective Subjective Date/Time Seen: 01/13/22 08:44 Patient reports: no new complaints Exam Const: General: comfortable, alert and awake GI: Inspection: non-distended, incision (Dry and continues to heal well) and scaphoid GI Palp: Yes Firmness to palpation present (GI) and No Tenderness to palpation present (GI) Auscultation: normal bowel sounds Objective Data Vital Signs Vital Signs: Vital Signs - 24 hr 01/12/22 09:58 01/12/22 13:50 01/12/22 20:26 Temperature 36.2 C L Pulse Rate 65 64 Respiratory Rate 20 Blood Pressure 113/73 Pulse Oximetry 100 Oxygen Delivery Room Air 01/12/22 20:00 01/12/22 22:00 01/13/22 06:00 Temperature 36.2 C L 36.4 C L Pulse Rate 67 72 Respiratory Rate 16 16 Blood Pressure 125/74 114/79 Pulse Oximetry 98 99 Oxygen Delivery Room Air 01/13/22 08:04 Temperature Pulse Rate 70 Respiratory Rate Blood Pressure Pulse Oximetry Oxygen Delivery Intake/Output Intake/Output: Intake & Output 01/10/22 01/11/22 01/12/22 01/13/22 23:59 23:59 23:59 23:59 Intake Total 4385 7015 1250 Output Total 900 1750 750 Balance 3485 5209 500 Meds/Results Medications: Active Medications Generic Name Dose Route Start Last Admin Trade Name Freq PRN Reason Stop Dose Admin Acetaminophen 500 mg 01/01/22 09:32 Acetaminophen 500 Mg Tablet PO Q6H PRN Mild Pain (1-3) or Fever Hydrocodone Bitart/Acetaminophen 1 tab 01/01/22 09:32 Hydrocodone/Acetaminophen (*Crx) 5-325 Mg Tablet PO Q4H PRN Pain Rated 7-10 Carbidopa/Levodopa 3 tablet 01/01/22 17:00 01/05/22 14:10 Carbidopa/Levodopa 25/100 Mg Tablet PO Not Given QID MARIANA Enoxaparin Sodium 40 mg 12/30/21 09:00 01/13/22 08:04 Enoxaparin 40 Mg/0.4 Ml Syringe SUB-Q 40 mg DAILY MARIANA Administration Hydralazine HCl 10 mg 01/02/22 16:08 01/04/22 05:56 Hydralazine Hcl 20 Mg/Ml Vial IV PUSH 10 mg Q6HR PRN Administration Blood Pressure - High Ibuprofen 800 mg in 200 mls @ 400 mls/hr 01/01/22 09:32 Caldolor 800 Mg/200 Ml IVPB Q6H PRN Pain Rated 1-3 Dextrose 1,000 mls @ 50 mls/hr 01/04/22 11:02 Dextrose 10% IV CONT .Q20H PRN if PN is interrupted Multivitamins 2.5 ml/ 2,005 mls @ 60 mls/hr 01/04/22 16:00 01/12/22 15:21 Multivitamins 2.5 ml/ Amino IV CONT 60 mls/hr Acids/Electrolytes/Dextrose .Q24H MARIANA Administration Protocol Fat Emulsion Intravenous 250 mls @ 20 mls/hr 01/04/22 16:00 01/13/22 03:52 Lipids 20% IVPB Infused Q24H MARIANA Infusion Potassium Chloride/Sodium Chloride 1,000 mls @ 100 mls/hr 01/10/22 13:45 01/13/22 01:12 Kcl 40 Meq/0.45% Ns IV CON
[2022-01-13 09:34] LABS: Triglycerides 215 mg/dL (<150)
--- NOTE | 2022-01-13 11:52 | P.PNIM_ITS ---
Progress Note: A&P Assessment and Plan (1) Small bowel obstruction with strangulation or infarction: Status: Acute Assessment and Plan: * CT abd/pelvis suggestive of partial small bowel obstruction. * General surgery consulted and appreciate recommendations. * Small bowel series with slow transit of contrast out of the stomach after 2 hours and possible closed loop obstruction. * 12/30/21 s/p small bowel resection with infarction.? * 01/01/22 NG pulled out by patient today. Okay to leave out per surgery. Advanced to clears. Continue lowered dose IV fluids and pain control. Ambulate in the hallway. PT/OT consulted. * 01/02/22 No emesis, flatus or BM. Taking in clear liquids without c/o worsening pain. Reinforced ambulating. Patient taking in adequate oral liquids and UOP stable. Saline lock IV fluids. Continue current management. Diet advancement per Surgery. * 01/03/2022 patient with N/V with brown bile, Will monitor h/h. * 01/04/22: patient to have NG tube placed secondary to physical exam today demonstrating no bowel sounds, but continued nausea and vomiting. Discussed with General surgery and they ordered PICC line placement for TPN initiation as well as NG. It should be noted the patient also failed his modified barium swallow yesterday with a definite abnormal finger NG will state of swallowing placing him at high risk for aspiration. * 01/05/[address], no bowel sounds, TPN running, small bowel xray is pending * 01/06/22 abd xray dilated small bowel, consistent with adynamic ileus, Small bowel xray: Almost all of the contrast remains in the stomach after 4 hours, NG tube remains in place and is draining a dark green thick bile * 01/07/22 stable at this time. still sucking a thick green bile. KUB dilated small bowel likely adynamic ileus * 01/08/22 Remained stable. Bile does seem to be more than clear side. small- bowel follow-through does indicate normal transition time consistent with adynamic ileus * 01/09/22 Ileus remains. Continue with NG tube and TPN repeat abdomen in the morning * 01/10/22 Ileus remains. Continue with NG tube and TPN, abdominal xray does not indicate any current changes * 01/11/22 NG tube is out, appears comfortable, TPN remains intact, continue to trend labs * 01/12/22 TPN still running. Modified swallow unsuccessful again. GI consulted * 01/13/22: Pt. agreeable to placement of PEG tube in consulting with Gen Mcgrath this AM. GI is consulted by surgery. He has active bowel sounds but admits that he chokes when he attempts to eat or swallow. Ileus is felt to be resolved. (2) Adynamic ileus: Code(s): K56.0 - Paralytic ileus Status: Resolved Assessment and Plan: * See above (3) Hypokalemia: Code(s): E87.6 - Hypokalemia Status: Resolved Assessment and Plan: * potassium is 4.1 today * replace potassium as indicated * Start KCL at 100ml/hr to help with maintenance * Continue to trend labs * Potassium is 4.3 today. Resolved. (4) Parkinsons disease: Code(s): G20 - Parkinson's disease Status: Chronic Assessment and Plan: Currently NPO * Restart medication as indicated * Pt. has been unable to take his Parkinson's meds as he is NPO. He will be having a PEG tube placed and he will then be able to have his medications administered. (5) CKD (chronic kidney disease): Qualifiers: Chronic kidney disease stage: stage 3 (moderate) Chronic kidney disease stage 3 subtype: stage 3a (GFR 45-59) Qualified Code(s): N18.31 - Chronic kidney disease, stage 3a Code(s)
--- NOTE | 2022-01-13 11:52 | PM.IMPN ---
Progress Note: A&P Assessment and Plan (1) Small bowel obstruction with strangulation or infarction: Status: Acute Assessment and Plan: CT abd/pelvis suggestive of partial small bowel obstruction. General surgery consulted and appreciate recommendations. Small bowel series with slow transit of contrast out of the stomach after 2 hours and possible closed loop obstruction. 12/30/21 s/p small bowel resection with infarction.? 01/01/22 NG pulled out by patient today. Okay to leave out per surgery. Advanced to clears. Continue lowered dose IV fluids and pain control. Ambulate in the hallway. PT/OT consulted. 01/02/22 No emesis, flatus or BM. Taking in clear liquids without c/o worsening pain. Reinforced ambulating. Patient taking in adequate oral liquids and UOP stable. Saline lock IV fluids. Continue current management. Diet advancement per Surgery. 01/03/2022 patient with N/V with brown bile, Will monitor h/h. 01/04/22: patient to have NG tube placed secondary to physical exam today demonstrating no bowel sounds, but continued nausea and vomiting. Discussed with General surgery and they ordered PICC line placement for TPN initiation as well as NG. It should be noted the patient also failed his modified barium swallow yesterday with a definite abnormal finger NG will state of swallowing placing him at high risk for aspiration. 01/05/[address], no bowel sounds, TPN running, small bowel xray is pending 01/06/22 abd xray dilated small bowel, consistent with adynamic ileus, Small bowel xray: Almost all of the contrast remains in the stomach after 4 hours, NG tube remains in place and is draining a dark green thick bile 01/07/22 stable at this time. still sucking a thick green bile. KUB dilated small bowel likely adynamic ileus 01/08/22 Remained stable. Bile does seem to be more than clear side. small-bowel follow-through does indicate normal transition time consistent with adynamic ileus 01/09/22 Ileus remains. Continue with NG tube and TPN repeat abdomen in the morning 01/10/22 Ileus remains. Continue with NG tube and TPN, abdominal xray does not indicate any current changes 01/11/22 NG tube is out, appears comfortable, TPN remains intact, continue to trend labs 01/12/22 TPN still running. Modified swallow unsuccessful again. GI consulted 01/13/22: Pt. agreeable to placement of PEG tube in consulting with Gen Mcgrath this AM. GI is consulted by surgery. He has active bowel sounds but admits that he chokes when he attempts to eat or swallow. Ileus is felt to be resolved. (2) Adynamic ileus: Code(s): K56.0 - Paralytic ileus Status: Resolved Assessment and Plan: See above (3) Hypokalemia: Code(s): E87.6 - Hypokalemia Status: Resolved Assessment and Plan: potassium is 4.1 today replace potassium as indicated Start KCL at 100ml/hr to help with maintenance Continue to trend labs Potassium is 4.3 today. Resolved. (4) Parkinsons disease: Code(s): G20 - Parkinson's disease Status: Chronic Assessment and Plan: Currently NPO Restart medication as indicated Pt. has been unable to take his Parkinson's meds as he is NPO. He will be having a PEG tube placed and he will then be able to have his medications administered. (5) CKD (chronic kidney disease): Qualifiers: Chronic kidney disease stage: stage 3 (moderate) Chronic kidney disease stage 3 subtype: stage 3a (GFR 45-59) Qualified Code(s): N18.31 - Chronic kidney disease, stage 3a Code(s): N18.9 - Chronic kidney disease, unspecified Status: Chronic Assessment and Plan: BUN 34, creatinine 1.00, GFR >60. Chronic, stable. 01/06/22 Avoid nephrotoxic agents and dehydration. Monitor I/O. 01/04/22: Creatinine today is in increased to 1.4. BUN is 35. Suspect mild dehydration. Will restart IV fluids NS at 100 ml/hr. Surgery managing 01/05/22 stable with BUN/Cr 17/0.60
[2022-01-13 12:05] LABS: Glucose Point of Care 110 mg/dl (65-105)
[2022-01-13 14:00] VITALS: BP 112/74; PULSE 76; RESP 14; TEMP 36.5; O2SAT 100
[2022-01-13] MEDS: AMINO ACIDS 5%/D15W/E-LYTES/CA 2,000 ML with MULTIVITAMINS-12 INJ VIAL 1 2.5 ML, MULTIV... 60 ML IV CONT (15:04)
[2022-01-13] MEDS: FAT EMULSIONS IV 20% 250 ML 20 ML IVPB (15:05)
[2022-01-13 16:54] LABS: Glucose Point of Care 131 mg/dl (65-105)
[2022-01-13 20:25] VITALS: PULSE 70
[2022-01-13 22:00] VITALS: BP 116/70; PULSE 63; RESP 16; TEMP 36.4; O2SAT 97
[2022-01-14] VITALS (10 sets, daily range): BP systolic 81–135; BP diastolic 52–71; PULSE 59–73; RESP 16–24; TEMP 36.2–37.2; O2SAT 96–100
[2022-01-14 05:16] LABS: Hematocrit 32.6 % (42.0-52.0); Hemoglobin 10.8 g/dL (14.0-18.0); Mean Corpuscular HGB Conc 33.1 g/dl (32-36); Mean Corpuscular Hemoglobin 30.9 pg (26-34); Mean Corpuscular Volume 93.4 fl (80-100); Mean Platelet Volume 9.9 fl (7.4-10.4); Platelet Count Result 287 k/mm3 (150-375); Red Blood Count 3.49 M/mm3 (4.6-6.20); Red Cell Distribution Width 13.8 % (11.5-14.5); White Blood Count 11.1 K/mm3 (4.5-10.0)
[2022-01-14 05:30] LABS: Alanine Aminotransferase 50 U/L (6-50); Albumin Level 2.8 g/dL (3.5-5.1); Alkaline Phosphatase 91 U/L (38-126); Anion Gap 7 mmol/L (8-16); Aspartate Amino Transferase 48 U/L (17-59); Bilirubin,Total 0.2 mg/dL (0.2-1.3); Blood Urea Nitrogen 19 mg/dL (9-20); Carbon Dioxide 24 mmol/L (22-30); Chloride 102 mmol/L (98-107); Estimated CRCL calculation 53 ml/min; Estimated Glomerular Filt Rate > 60; Glucose 94 mg/dL (65-110); Potassium 4.5 mmol/L (3.4-5.0); Sodium 133 mmol/L (137-145)
[2022-01-14] MEDS: CENTRAL LINE FLUSH 10 ML IV PUSH ×2 (05:42→20:28)
--- NOTE | 2022-01-14 07:09 | WPDGIPROGNO ---
Progress Note: A&P Assessment and Plan (1) Dysphagia: Code(s): R13.10 - Dysphagia, unspecified Status: Acute Assessment and Plan: Dysphagia likely secondary to Parkinson's disease. Aggravated by lack of medications recently. It appears it has been developing even prior to his small-bowel obstruction. Anticipate long-term recovery. Will plan to proceed with PEG tube placement today. Hopefully then Parkinson's medications can be received. Would not anticipate early removal of PEG tube. If patient did in prove it could be rib moved potentially after 2 months or so. (2) Adynamic ileus: Code(s): K56.0 - Paralytic ileus Status: Resolved Assessment and Plan: Ileus now resolved. (3) Small bowel obstruction with strangulation or infarction: Status: Acute Assessment and Plan: Small-bowel obstruction relieved small-bowel infarction noted resection accomplished. Patient now recovering after extended postop ileus. (4) Parkinsons disease: Code(s): G20 - Parkinson's disease Status: Chronic Assessment and Plan: Patient has underlying Parkinson's disease. Recently has not been obtaining medications PEG tube hopefully will help accomplish this. Subjective Date/time seen: 01/14/22 07:09 Patient alert this morning. Not eating because of failed modified barium swallow. Parkinson's medications. Patient reports having had difficulty swallowing for the previous month leading up to his surgery. Review of Systems Review of Systems: Review of systems noncontributory. Now status post recent small bowel resection. Exam Narrative: physical exam reveals patient be alert. HEENT exam reveals poor gag repeat flex. Lungs are clear. Heart without murmur. Abdomen healing incision noted. Bowel sounds present soft nontender. Objective Data Vital Signs Vital Signs: Vital Signs - 24 hr 01/13/22 08:04 01/13/22 14:00 01/13/22 20:25 Temperature 97.7 F Pulse Rate 70 76 70 Respiratory Rate 14 Blood Pressure 112/74 Pulse Oximetry 100 Oxygen Delivery 01/13/22 20:00 01/13/22 22:00 01/14/22 06:00 Temperature 97.6 F 97.1 F L Pulse Rate 63 65 Respiratory Rate 16 18 Blood Pressure 116/70 117/71 Pulse Oximetry 97 96 Oxygen Delivery Room Air Intake/Output Intake/Output: Intake & Output 01/11/22 01/12/22 01/13/22 01/14/22 23:59 23:59 23:59 23:59 Intake Total 4385 7015 5255 Output Total 900 1750 750 450 Balance 3485 5265 4505 -450 Meds/Results Medications: Active Medications Generic Name Dose Route Start Last Admin Trade Name Freq PRN Reason Stop Dose Admin Acetaminophen 500 mg 01/01/22 09:32 Acetaminophen 500 Mg Tablet PO Q6H PRN Mild Pain (1-3) or Fever Hydrocodone Bitart/Acetaminophen 1 tab 01/01/22 09:32 Hydrocodone/Acetaminophen (*Crx) 5-325 Mg Tablet PO Q4H PRN Pain Rated 7-10 Carbidopa/Levodopa 3 tablet 01/01/22 17:00 01/05/22 14:10 Carbidopa/Levodopa 25/100 Mg Tablet PO Not Given QID MARIANA Enoxaparin Sodium 40 mg 12/30/21 09:00 01/13/22 08:04 Enoxaparin 40 Mg/0.4 Ml Syringe SUB-Q 40 mg DAILY MARIANA Administration Hydralazine HCl 10 mg 01/02/22 16:08 01/04/22 05:56 Hydralazine Hcl 20 Mg/Ml Vial IV PUSH 10 mg Q6HR PRN Administration Blood Pressure - High Ibuprofen 800 mg in 200 mls @ 400 mls/hr 01/01/22 09:32 Caldolor 800 Mg/200 Ml IVPB Q6H PRN Pain Rated 1-3 Dextrose 1,000 mls @ 50 mls/hr 01/04/22 11:02 Dextrose 10% IV CONT .Q20H PRN if PN is interrupted Multivitamins 2.5 ml/ 2,005 mls @ 60 mls/hr 01/04/22 16:00 01/13/22 15:04 Multivitamins 2.5 ml/ Amino IV CONT 60 mls/hr Acids/Electrolytes/Dextrose .Q24H MARIANA Administration Protocol Fat Emulsion Intravenous 250 mls @ 20 mls/hr 01/04/22 16:00 01/13/22 15:05 Lipids 20% IVPB 20 mls/hr Q24H MARIANA Administration Potassium Chloride/Sodium Chloride 1
[2022-01-14] MEDS: KCL 40 MEQ/0.45% NS 1,000 ML 100 ML IV CONT ×2 (08:06→23:28)
[2022-01-14] MEDS: PANTOPRAZOLE SODIUM IV 40 MG VIAL IV PUSH (08:07)
[2022-01-14] MEDS: METOPROLOL TARTRATE INJ 5 MG/5 ML VIAL IV PUSH (08:07)
--- NOTE | 2022-01-14 08:11 | PM.PNGS ---
Progress Note: A&P Assessment and Plan (1) Small bowel obstruction with strangulation or infarction: Status: Resolved Assessment and Plan: wound continues to heal well. (2) Dysphagia: Code(s): R13.10 - Dysphagia, unspecified Status: Acute Assessment and Plan: Patient to have PEG tube today Subjective Subjective Date/Time Seen: 01/14/22 08:11 Patient reports: no new complaints and afebrile Exam GI: Inspection: non-distended, incision ( healing well. Steri-Strips intact) and scaphoid GI Palp: Yes Soft to palpation and No Tenderness to palpation present (GI) Auscultation: normal bowel sounds Objective Data Vital Signs Vital Signs: Vital Signs - 24 hr 01/13/22 14:00 01/13/22 20:25 01/13/22 20:00 Temperature 36.5 C Pulse Rate 76 70 Respiratory Rate 14 Blood Pressure 112/74 Pulse Oximetry 100 Oxygen Delivery Room Air 01/13/22 22:00 01/14/22 06:00 01/14/22 08:07 Temperature 36.4 C 36.2 C L Pulse Rate 63 65 66 Respiratory Rate 16 18 Blood Pressure 116/70 117/71 Pulse Oximetry 97 96 Oxygen Delivery Intake/Output Intake/Output: Intake & Output 01/11/22 01/12/22 01/13/22 01/14/22 23:59 23:59 23:59 23:59 Intake Total 4385 7015 5255 1250 Output Total 900 1750 750 450 Balance 3485 5265 4505 800 Meds/Results Medications: Active Medications Generic Name Dose Route Start Last Admin Trade Name Freq PRN Reason Stop Dose Admin Acetaminophen 500 mg 01/01/22 09:32 Acetaminophen 500 Mg Tablet PO Q6H PRN Mild Pain (1-3) or Fever Hydrocodone Bitart/Acetaminophen 1 tab 01/01/22 09:32 Hydrocodone/Acetaminophen (*Crx) 5-325 Mg Tablet PO Q4H PRN Pain Rated 7-10 Carbidopa/Levodopa 3 tablet 01/01/22 17:00 01/05/22 14:10 Carbidopa/Levodopa 25/100 Mg Tablet PO Not Given QID [facility] Enoxaparin Sodium 40 mg 12/30/21 09:00 01/14/22 08:07 Enoxaparin 40 Mg/0.4 Ml Syringe SUB-Q Not Given DAILY MARIANA Hydralazine HCl 10 mg 01/02/22 16:08 01/04/22 05:56 Hydralazine Hcl 20 Mg/Ml Vial IV PUSH 10 mg Q6HR PRN Administration Blood Pressure - High Ibuprofen 800 mg in 200 mls @ 400 mls/hr 01/01/22 09:32 Caldolor 800 Mg/200 Ml IVPB Q6H PRN Pain Rated 1-3 Dextrose 1,000 mls @ 50 mls/hr 01/04/22 11:02 Dextrose 10% IV CONT .Q20H PRN if PN is interrupted Multivitamins 2.5 ml/ 2,005 mls @ 60 mls/hr 01/04/22 16:00 01/13/22 15:04 Multivitamins 2.5 ml/ Amino IV CONT 60 mls/hr Acids/Electrolytes/Dextrose .Q24H MARIANA Administration Protocol Fat Emulsion Intravenous 250 mls @ 20 mls/hr 01/04/22 16:00 01/14/22 07:38 Lipids 20% IVPB Infused Q24H MARIANA Infusion Potassium Chloride/Sodium Chloride 1,000 mls @ 100 mls/hr 01/10/22 13:45 01/14/22 08:06 Kcl 40 Meq/0.45% Ns IV CONT 100 mls/hr .Q10H MARIANA Administration Metoprolol Succinate 25 mg 01/01/22 09:00 01/05/22 15:04 Metoprolol Succinate Ext Rel 25 Mg Tabcr BY MOUTH Not Given DAILY MARIANA Metoprolol Tartrate 5 mg 01/05/22 21:00 01/14/22 08:07 Metoprolol Tartrate Inj 5 Mg/5 Ml Vial IV PUSH 5 mg Q12H MARIANA Administration Ondansetron HCl 4 mg 12/29/21 21:15 01/04/22 21:52 Ondansetron Inj 4 Mg/2 Ml Vial IV PUSH 4 mg Q4H PRN Administration Nausea Pantoprazole Sodium 40 mg 01/02/22 09:00 01/05/22 15:05 Pantoprazole 40 Mg Tablet PO Not Given QAM MARIANA Pantoprazole Sodium 40 mg 01/05/22 21:00 01/14/22 08:07 Pantoprazole Sodium Iv 40 Mg Vial IV PUSH 40 mg Q12HR MARIANA Administration Polyethylene Glycol 17 gm 01/01/22 09:00 01/05/22 15:05 Polyethylene Glycol 3350 17 Gm Powd.Pack PO Not Given QAM MARIANA Potassium Chloride 40 meq 01/01/22 17:00 01/05/22 14:10 Potassium Chloride 20 Meq Tablet.Er PO Not Given BIDWM MARIANA Ropinirole HCl 1 mg 01/01/22 17:00 01/05/22 14:10 Ropinirole Hcl 1 Mg Tablet PO Not Given QID MARIANA Ropinirole HCl
[2022-01-14 08:17] LABS: Anisocytosis 1+ (NORMAL); Band Neutrophils Percent 2 % (0-6); Eosinophils Absolute Manual 0.88 K/mm3 (0.02-0.5); Eosinophils Percent Manual 8 % (0-4); Lymphocytes Absolute Manual 1.33 K/mm3 (1.1-4.5); Monocytes Absolute Manual 0.22 K/mm3 (0.1-0.90); Monocytes Percent Manual 2 % (3-9); Neutrophils Absolute Manual 8.65 K/mm3 (1.3-6.7); Neutrophils Percent Manual 76 % (46-73); Platelet Estimate Adequate (Adequate); Schistocytes None Seen (NORMAL); Total Cells Counted 100
[2022-01-14 08:47] LABS: INR 1.2; Prothrombin Time 14.6 Seconds (11.1-14.7)
[2022-01-14 08:48] LABS: Partial Thromboplastin Time 30.5 SECONDS (22.3-36.8)
[2022-01-14] MEDS: LACTATED RINGERS 1,000 ML 150 ML IV CONT (10:25)
--- NOTE | 2022-01-14 10:53 | WPDANESEPPF ---
Anes - Initial Pre Proc Eval Procedure: Operation Date: 12/30/21 17:00 Proposed Procedures p Exploratory Laparotomy, Possible Bowel Resection - Quintin Tamez MD Operation Date: 01/14/22 11:30 Proposed Procedures p Percutaneous Endoscopic Gastrostomy - Chung Mcgovern MD Date/Time: 01/14/22 10:53 Surgeon: RENATA Saavedra Pre Op Diagnosis: Partial Small Bowel Obstruction Patient Data Age: 81 Gender: M Height: 1.7 m Weight: 75 kg Last Vital Signs Temp 97.4 F L 01/14/22 10:23 Pulse 64 01/14/22 10:23 Resp 18 01/14/22 10:23 BP 135/71 01/14/22 10:23 Pulse Ox 100 01/14/22 10:23 O2 Del Method Room Air 01/14/22 10:23 O2 Flow Rate 1 12/30/21 18:18 Allergies Allergy/AdvReac Type Severity Reaction Status Date / Time No Known Allergies Allergy Verified 01/14/22 10:21 Home Medications Medication Instructions Recorded Confirmed Type aspirin 81 mg tablet,delayed 81 mg PO DAILY 04/19/19 12/30/21 History release rosuvastatin 10 mg tablet 10 mg PO DAILY 10/15/20 12/30/21 History omeprazole 20 mg capsule,delayed See Rx Instructions .Route 06/17/21 12/30/21 Rx release .COMPLEX #90 caps ropinirole 1 mg tablet See Rx Instructions .Route 06/17/21 12/30/21 Rx .COMPLEX #540 tabs metoprolol succinate 25 mg See Rx Instructions .Route 09/15/21 12/30/21 Rx tablet,extended release 24 hr .COMPLEX #90 tabs docusate sodium 100 mg capsule 100 mg PO DAILY #30 caps 10/09/21 12/30/21 Rx (Colace) hydrocodone 5 mg-acetaminophen 325 1 - 2 tablet PO Q6H PRN pain #20 10/09/21 12/30/21 Rx mg tablet tabs carbidopa 25 mg-levodopa 100 mg See Rx Instructions .Route 12/14/21 12/30/21 Rx tablet .COMPLEX #1,080 tabs Laboratory Tests 01/13/22 01/13/22 01/14/22 11:59 16:44 05:03 WBC 11.1 K/mm3 H K/mm3 (4.5-10.0) RBC 3.49 M/mm3 L M/mm3 (4.6-6.20) Hgb 10.8 g/dL L g/dL (14.0-18.0) Hct 32.6 % L % (42.0-52.0) MCV 93.4 fl fl (80-100) MCH 30.9 pg pg (26-34) MCHC 33.1 g/dl g/dl (32-36) RDW 13.8 % % (11.5-14.5) Plt Count 287 k/mm3 k/mm3 (150-375) MPV 9.9 fl fl (7.4-10.4) Immature Gran % (Auto) Not Reportable Neut % (Auto) Not Reportable Lymph % (Auto) Not Reportable [place] % (Auto) Not Reportable Eos % (Auto) Not Reportable Baso % (Auto) Not Reportable Lymph # (Auto) Not Reportable [place] # (Auto) Not Reportable Eos # (Auto) Not Reportable Baso # (Auto) Not Reportable Abs Immat Gran (auto) Not Reportable Absolute Neuts (auto) Not Reportable Absolute Nucleated RBC Not Reportable Total Counted 100 Neutrophils % (Manual) 76 % H % (46-73) Band Neutrophils % 2 % % (0-6) Lymphocytes % (Manual) 12.0 % L % (18-44) Monocytes % (Manual) 2 % L % (3-9) Eosinophils % (Manual) 8 % H % (0-4) Nucleated RBC % Not Reportable Abs Neuts (Manual) 8.65 K/mm3 H K/mm3 (1.3-6.7) Abs Lymphs (Manual) 1.33 K/mm3 K/mm3 (1.1-4.5) Abs Monocytes (Manual) 0.22 K/mm3 K/mm3 (0.1-0.90) Absolute Eos (Manual) 0.88 K/mm3 H K/mm3 (0.02-0.5) Platelet Estimate Adequate (Adequate) Anisocytosis 1+ (NORMAL) Schistocytes None seen (NORMAL) PT INR APTT Sodium Potassium Chloride Carbon Dioxide Anion Gap BUN Creatinine Estim Creat Clear Calc Estimated GFR Glucose POC Capillary Glucose 110 mg/dl H mg/dl 131 mg/dl H mg/dl (65-105) (65-105) Calcium Magnesium Total Bilirubin AST ALT
[2022-01-14 11:32] LABS: Glucose Point of Care 106 mg/dl (65-105)
--- NOTE | 2022-01-14 11:45 | PCOTNOTE ---
Attempted to see patient this am, however patient off floor for surgery.
--- NOTE | 2022-01-14 12:14 | PCDIET ---
Consult sent for tube feeding recommendations. Recommend Jevity 1.2 at 20 ml/hr advance by 10 ml q 4 hours to goal rate of 75 ml/hr. Tube feeding will provide 1980 kcals/92 gms protein/1332 ml water. Free water flush 30 ml q 4hours.
--- NOTE | 2022-01-14 15:26 | P.PNIM_ITS ---
Progress Note: A&P Assessment and Plan (1) Small bowel obstruction with strangulation or infarction: Status: Resolved Assessment and Plan: * CT abd/pelvis suggestive of partial small bowel obstruction. * General surgery consulted and appreciate recommendations. * Small bowel series with slow transit of contrast out of the stomach after 2 hours and possible closed loop obstruction. * 12/30/21 s/p small bowel resection with infarction.? * 01/01/22 NG pulled out by patient today. Okay to leave out per surgery. Advanced to clears. Continue lowered dose IV fluids and pain control. Ambulate in the hallway. PT/OT consulted. * 01/02/22 No emesis, flatus or BM. Taking in clear liquids without c/o worsening pain. Reinforced ambulating. Patient taking in adequate oral liquids and UOP stable. Saline lock IV fluids. Continue current management. Diet advancement per Surgery. * 01/03/2022 patient with N/V with brown bile, Will monitor h/h. * 01/04/22: patient to have NG tube placed secondary to physical exam today demonstrating no bowel sounds, but continued nausea and vomiting. Discussed with General surgery and they ordered PICC line placement for TPN initiation as well as NG. It should be noted the patient also failed his modified barium swallow yesterday with a definite abnormal finger NG will state of swallowing placing him at high risk for aspiration. * 01/05/[address], no bowel sounds, TPN running, small bowel xray is pending * 01/06/22 abd xray dilated small bowel, consistent with adynamic ileus, Small bowel xray: Almost all of the contrast remains in the stomach after 4 hours, NG tube remains in place and is draining a dark green thick bile * 01/07/22 stable at this time. still sucking a thick green bile. KUB dilated small bowel likely adynamic ileus * 01/08/22 Remained stable. Bile does seem to be more than clear side. small- bowel follow-through does indicate normal transition time consistent with adynamic ileus * 01/09/22 Ileus remains. Continue with NG tube and TPN repeat abdomen in the morning * 01/10/22 Ileus remains. Continue with NG tube and TPN, abdominal xray does not indicate any current changes * 01/11/22 NG tube is out, appears comfortable, TPN remains intact, continue to trend labs * 01/12/22 TPN still running. Modified swallow unsuccessful again. GI consulted * 01/13/22: Pt. agreeable to placement of PEG tube in consulting with Gen Mcgrath this AM. GI is consulted by surgery. He has active bowel sounds but admits that he chokes when he attempts to eat or swallow. Ileus is felt to be resolved. * * 01/14/2022 interval history: 81-year-old male with history of Parkinson's and dysphagia unable to swallow seen by GI and patient is scheduled for PEG placement today, will help provide patient's Parkinson medication, will follow-up after the procedure and recommendation from GI to start the pain, will continue to monitor. (2) Adynamic ileus: Code(s): K56.0 - Paralytic ileus Status: Resolved Assessment and Plan: * See above (3) Hypokalemia: Code(s): E87.6 - Hypokalemia Status: Resolved Assessment and Plan: * potassium is 4.1 today * replace potassium as indicated * Start KCL at 100ml/hr to help with maintenance * Continue to trend labs * Potassium is 4.3 today. Resolved. (4) Parkinsons disease: Code(s): G20 - Parkinson's disease Status: Chronic Assessment and Plan: Currently NPO * Restart medication as indicated * Pt. has been unable to take his Parkinson's meds as he is NPO. He will be havin
--- NOTE | 2022-01-14 15:26 | PM.IMPN ---
Progress Note: A&P Assessment and Plan (1) Small bowel obstruction with strangulation or infarction: Status: Resolved Assessment and Plan: CT abd/pelvis suggestive of partial small bowel obstruction. General surgery consulted and appreciate recommendations. Small bowel series with slow transit of contrast out of the stomach after 2 hours and possible closed loop obstruction. 12/30/21 s/p small bowel resection with infarction.? 01/01/22 NG pulled out by patient today. Okay to leave out per surgery. Advanced to clears. Continue lowered dose IV fluids and pain control. Ambulate in the hallway. PT/OT consulted. 01/02/22 No emesis, flatus or BM. Taking in clear liquids without c/o worsening pain. Reinforced ambulating. Patient taking in adequate oral liquids and UOP stable. Saline lock IV fluids. Continue current management. Diet advancement per Surgery. 01/03/2022 patient with N/V with brown bile, Will monitor h/h. 01/04/22: patient to have NG tube placed secondary to physical exam today demonstrating no bowel sounds, but continued nausea and vomiting. Discussed with General surgery and they ordered PICC line placement for TPN initiation as well as NG. It should be noted the patient also failed his modified barium swallow yesterday with a definite abnormal finger NG will state of swallowing placing him at high risk for aspiration. 01/05/[address], no bowel sounds, TPN running, small bowel xray is pending 01/06/22 abd xray dilated small bowel, consistent with adynamic ileus, Small bowel xray: Almost all of the contrast remains in the stomach after 4 hours, NG tube remains in place and is draining a dark green thick bile 01/07/22 stable at this time. still sucking a thick green bile. KUB dilated small bowel likely adynamic ileus 01/08/22 Remained stable. Bile does seem to be more than clear side. small-bowel follow-through does indicate normal transition time consistent with adynamic ileus 01/09/22 Ileus remains. Continue with NG tube and TPN repeat abdomen in the morning 01/10/22 Ileus remains. Continue with NG tube and TPN, abdominal xray does not indicate any current changes 01/11/22 NG tube is out, appears comfortable, TPN remains intact, continue to trend labs 01/12/22 TPN still running. Modified swallow unsuccessful again. GI consulted 01/13/22: Pt. agreeable to placement of PEG tube in consulting with Gen Mcgrath this AM. GI is consulted by surgery. He has active bowel sounds but admits that he chokes when he attempts to eat or swallow. Ileus is felt to be resolved. 01/14/2022 interval history: 81-year-old male with history of Parkinson's and dysphagia unable to swallow seen by GI and patient is scheduled for PEG placement today, will help provide patient's Parkinson medication, will follow-up after the procedure and recommendation from GI to start the pain, will continue to monitor. (2) Adynamic ileus: Code(s): K56.0 - Paralytic ileus Status: Resolved Assessment and Plan: See above (3) Hypokalemia: Code(s): E87.6 - Hypokalemia Status: Resolved Assessment and Plan: potassium is 4.1 today replace potassium as indicated Start KCL at 100ml/hr to help with maintenance Continue to trend labs Potassium is 4.3 today. Resolved. (4) Parkinsons disease: Code(s): G20 - Parkinson's disease Status: Chronic Assessment and Plan: Currently NPO Restart medication as indicated Pt. has been unable to take his Parkinson's meds as he is NPO. He will be having a PEG tube placed and he will then be able to have his medications administered. (5) CKD (chronic kidney disease): Qualifiers: Chronic kidney disease stage: stage 3 (moderate) Chronic kidney disease stage 3 subtype: stage 3a (GFR 45-59) Qualified Code(s): N18.31 - Chronic kidney disease, stage 3a Code(s): N18.9 - Chronic kidney disease, unspecified Status: Chronic
[2022-01-14] MEDS: AMINO ACIDS 5%/D15W/E-LYTES/CA 2,000 ML with MULTIVITAMINS-12 INJ VIAL 1 2.5 ML, MULTIV... 60 ML IV CONT (15:34)
[2022-01-14] MEDS: FAT EMULSIONS IV 20% 250 ML 20 ML IVPB (15:35)
[2022-01-14] MEDS: CARBIDOPA/LEVODOPA 25/100 MG TABLET 3 TABLET PO ×2 (15:35→20:28)
[2022-01-14 18:21] LABS: Glucose Point of Care 123 mg/dl (65-105)
[2022-01-14] MEDS: ACETAMINOPHEN 500 MG TABLET PO (20:31)
[2022-01-14] MEDS: traMADol HCL (*CRX) 25 MG TABLET FEED TUBE (23:27)
[2022-01-15 00:43] LABS: Glucose Point of Care 121 mg/dl (65-105)
[2022-01-15] MEDS: IBUPROFEN IV 800 MG/200 ML 800 MG/200 ML BAG 400 MG IVPB (05:35)
[2022-01-15] MEDS: CENTRAL LINE FLUSH 10 ML IV PUSH ×3 (05:59→21:25)
[2022-01-15 06:00] VITALS: BP 96/67; PULSE 82; RESP 18; TEMP 36.3; O2SAT 98
[2022-01-15 06:01] LABS: Glucose Point of Care 108 mg/dl (65-105)
--- NOTE | 2022-01-15 06:18 | PC.NURSE ---
patient's tube feed and tubing/syringe was changed 01/15 @0600.
--- NOTE | 2022-01-15 07:29 | WPDANESPN ---
Anes - Prog Note Post-Op Date/Time: 01/15/22 07:29 Cardiovascular status: normal Respiratory status: normal Airway patency: baseline Mental status: baseline Post-Op hydration status: normal Vital Signs: Last Vital Signs Temp 97.3 F L 01/15/22 06:00 Pulse 82 01/15/22 06:00 Resp 18 01/15/22 06:00 BP 96/67 L 01/15/22 06:00 Pulse Ox 98 01/15/22 06:00 O2 Del Method Room Air 01/14/22 20:00 O2 Flow Rate 1 12/30/21 18:18 Pain Score (VAS): 0/10 I/O: Intake & Output 01/14/22 01/14/22 01/15/22 15:59 23:59 07:59 Intake Total 2255 1000 200 Output Total 300 1000 600 Balance 1955 0 -400 Laboratory Tests 01/14/22 05:03 01/14/22 05:03 01/14/22 01/14/22 01/14/22 05:03 08:11 11:30 WBC 11.1 H RBC 3.49 L Hgb 10.8 L Hct 32.6 L MCV 93.4 MCH 30.9 MCHC 33.1 RDW 13.8 Plt Count 287 MPV 9.9 Immature Gran % (Auto) Not Reportable Neut % (Auto) Not Reportable Lymph % (Auto) Not Reportable [place] % (Auto) Not Reportable Eos % (Auto) Not Reportable Baso % (Auto) Not Reportable Lymph # (Auto) Not Reportable [place] # (Auto) Not Reportable Eos # (Auto) Not Reportable Baso # (Auto) Not Reportable Abs Immat Gran (auto) Not Reportable Absolute Neuts (auto) Not Reportable Absolute Nucleated RBC Not Reportable Total Counted 100 Neutrophils % (Manual) 76 H Band Neutrophils % 2 Lymphocytes % (Manual) 12.0 L Monocytes % (Manual) 2 L Eosinophils % (Manual) 8 H Nucleated RBC % Not Reportable Abs Neuts (Manual) 8.65 H Abs Lymphs (Manual) 1.33 Abs Monocytes (Manual) 0.22 Absolute Eos (Manual) 0.88 H Platelet Estimate Adequate Anisocytosis 1+ Schistocytes None seen PT 14.6 INR 1.2 APTT 30.5 POC Capillary Glucose 106 H 01/14/22 01/14/2222 18:17 23:29 05:57 WBC RBC Hgb Hct MCV MCH MCHC RDW Plt Count MPV Immature Gran % (Auto) Neut % (Auto) Lymph % (Auto) [place] % (Auto) Eos % (Auto) Baso % (Auto) Lymph # (Auto) [place] # (Auto) Eos # (Auto) Baso # (Auto) Abs Immat Gran (auto) Absolute Neuts (auto) Absolute Nucleated RBC Total Counted Neutrophils % (Manual) Band Neutrophils % Lymphocytes % (Manual) Monocytes % (Manual) Eosinophils % (Manual) Nucleated RBC % Abs Neuts (Manual) Abs Lymphs (Manual) Abs Monocytes (Manual) Absolute Eos (Manual) Platelet Estimate Anisocytosis Schistocytes PT INR APTT POC Capillary Glucose 123 H 121 H 108 H Post-procedural complaints: none Patient Feedback: Patient satisfied with anesthetic care.
--- NOTE | 2022-01-15 10:03 | PCNFU ---
Nutrition Follow-Up Complete: Severe malnutrition related to ileus vs small bowel obstruction, as evidenced by weight loss 11%/6 months, severe muscle wasting, and need for parenteral nutrition. Goal: meet estimated needs Pt current nutrition is NPO, tube feedings of Jevity 1.5. Nutrition recommendation: Change tube feed to Jevity 1.2 per previous rec. Last recorded weight is 75.1 kg - stable at this time. Bowel Motility: +BM 01/14 Labs Reviewed: no new labs yet today, 01/14 -hgb:10.8, HCT:32.6, Alb:2.8, NA:133, glu:106 Meds Noted: lovenox, zofran, KCL Skin: No pressure areas noted Additional Notes: Pt continues on TPN at 60ml/hr as well as Tube feeding. Jevity 1.5 running at this time. Noted recommendation was for Jevity 1.2. Will notify nursing. Recommend Jevity 1.2 at a goal rate of 75 ml/hr. Tube feeding will provide 1980 kcals/92 gms protein/1332 ml water. Free water flush 30 ml q 4hours. Pt is currently tolerating tube feeds at 30ml/hr rate. OK to d/c TPN at this time. Monitor tube feeding, wt, labs. Follow up every /Tuesday
--- NOTE | 2022-01-15 10:10 | PCDIET ---
Addendum entered by Magnolia Simons RD, LDN 01/15/22 11:36: Orders received from Dr. Frey to change formula to Jevity 1.2 Original Note: Noted pt tube feed order is for Jevity 1.5. Recommended Jevity 1.2 at goal rate of 75 ml/hr. Tube feeding to provide 1980 kcals/92 gms protein/1332 ml water. Free water flush 30 ml q 4hours. Also recommend to d/c TPN as pt is tolerating tube feeds.
[2022-01-15] MEDS: ENOXAPARIN 40 MG/0.4 ML SYRINGE SUB-Q (10:22)
[2022-01-15] MEDS: CARBIDOPA/LEVODOPA 25/100 MG TABLET 3 TABLET FEED TUBE ×4 (10:22→21:24)
[2022-01-15] MEDS: LANSOPRAZOLE ORAL SUSP 30 MG/10 ML ORAL.SUSP FEED TUBE (10:22)
[2022-01-15 10:23] VITALS: PULSE 72
[2022-01-15] MEDS: KCL 40 MEQ/0.45% NS 1,000 ML 100 ML IV CONT ×2 (10:23→21:24)
[2022-01-15] MEDS: METOPROLOL TARTRATE 12.5 MG TABLET FEED TUBE ×2 (10:23→21:23)
[2022-01-15 11:00] LABS: Triglycerides 47 mg/dL (<150)
[2022-01-15 11:47] LABS: Glucose Point of Care 93 mg/dl (65-105)
--- NOTE | 2022-01-15 12:24 | P.PNIM_ITS ---
Progress Note: A&P Assessment and Plan (1) Small bowel obstruction with strangulation or infarction: Status: Resolved Assessment and Plan: * CT abd/pelvis suggestive of partial small bowel obstruction. * General surgery consulted and appreciate recommendations. * Small bowel series with slow transit of contrast out of the stomach after 2 hours and possible closed loop obstruction. * 12/30/21 s/p small bowel resection with infarction.? * 01/01/22 NG pulled out by patient today. Okay to leave out per surgery. Advanced to clears. Continue lowered dose IV fluids and pain control. Ambulate in the hallway. PT/OT consulted. * 01/02/22 No emesis, flatus or BM. Taking in clear liquids without c/o worsening pain. Reinforced ambulating. Patient taking in adequate oral liquids and UOP stable. Saline lock IV fluids. Continue current management. Diet advancement per Surgery. * 01/03/2022 patient with N/V with brown bile, Will monitor h/h. * 01/04/22: patient to have NG tube placed secondary to physical exam today demonstrating no bowel sounds, but continued nausea and vomiting. Discussed with General surgery and they ordered PICC line placement for TPN initiation as well as NG. It should be noted the patient also failed his modified barium swallow yesterday with a definite abnormal finger NG will state of swallowing placing him at high risk for aspiration. * 01/05/[address], no bowel sounds, TPN running, small bowel xray is pending * 01/06/22 abd xray dilated small bowel, consistent with adynamic ileus, Small bowel xray: Almost all of the contrast remains in the stomach after 4 hours, NG tube remains in place and is draining a dark green thick bile * 01/07/22 stable at this time. still sucking a thick green bile. KUB dilated small bowel likely adynamic ileus * 01/08/22 Remained stable. Bile does seem to be more than clear side. small- bowel follow-through does indicate normal transition time consistent with adynamic ileus * 01/09/22 Ileus remains. Continue with NG tube and TPN repeat abdomen in the morning * 01/10/22 Ileus remains. Continue with NG tube and TPN, abdominal xray does not indicate any current changes * 01/11/22 NG tube is out, appears comfortable, TPN remains intact, continue to trend labs * 01/12/22 TPN still running. Modified swallow unsuccessful again. GI consulted * 01/13/22: Pt. agreeable to placement of PEG tube in consulting with Gen Mcgrath this AM. GI is consulted by surgery. He has active bowel sounds but admits that he chokes when he attempts to eat or swallow. Ileus is felt to be resolved. * * 01/15/2022 interval history: 81-year-old male with history of Parkinson's had small bowl obstruction s/p surgical repairs and has developed dysphagia was unable to swallow, seen by GI and patient had PEG placed on 01/14, patient now seen by bureau chief and tolerating his Gtube,and receiving Parkinson and other medication, will continue to monitor and further recommendation to follow. (2) Adynamic ileus: Code(s): K56.0 - Paralytic ileus Status: Resolved Assessment and Plan: * See above (3) Hypokalemia: Code(s): E87.6 - Hypokalemia Status: Resolved Assessment and Plan: * potassium is 4.1 today * replace potassium as indicated * Start KCL at 100ml/hr to help with maintenance * Continue to trend labs * Potassium is 4.3 today. Resolved. (4) Parkinsons disease: Code(s): G20 - Parkinson's disease Status: Chronic Assessment and Plan: Currently NPO * Restart medication as indicated * Pt. has been
--- NOTE | 2022-01-15 12:24 | PM.IMPN ---
Progress Note: A&P Assessment and Plan (1) Small bowel obstruction with strangulation or infarction: Status: Resolved Assessment and Plan: CT abd/pelvis suggestive of partial small bowel obstruction. General surgery consulted and appreciate recommendations. Small bowel series with slow transit of contrast out of the stomach after 2 hours and possible closed loop obstruction. 12/30/21 s/p small bowel resection with infarction.? 01/01/22 NG pulled out by patient today. Okay to leave out per surgery. Advanced to clears. Continue lowered dose IV fluids and pain control. Ambulate in the hallway. PT/OT consulted. 01/02/22 No emesis, flatus or BM. Taking in clear liquids without c/o worsening pain. Reinforced ambulating. Patient taking in adequate oral liquids and UOP stable. Saline lock IV fluids. Continue current management. Diet advancement per Surgery. 01/03/2022 patient with N/V with brown bile, Will monitor h/h. 01/04/22: patient to have NG tube placed secondary to physical exam today demonstrating no bowel sounds, but continued nausea and vomiting. Discussed with General surgery and they ordered PICC line placement for TPN initiation as well as NG. It should be noted the patient also failed his modified barium swallow yesterday with a definite abnormal finger NG will state of swallowing placing him at high risk for aspiration. 01/05/[address], no bowel sounds, TPN running, small bowel xray is pending 01/06/22 abd xray dilated small bowel, consistent with adynamic ileus, Small bowel xray: Almost all of the contrast remains in the stomach after 4 hours, NG tube remains in place and is draining a dark green thick bile 01/07/22 stable at this time. still sucking a thick green bile. KUB dilated small bowel likely adynamic ileus 01/08/22 Remained stable. Bile does seem to be more than clear side. small-bowel follow-through does indicate normal transition time consistent with adynamic ileus 01/09/22 Ileus remains. Continue with NG tube and TPN repeat abdomen in the morning 01/10/22 Ileus remains. Continue with NG tube and TPN, abdominal xray does not indicate any current changes 01/11/22 NG tube is out, appears comfortable, TPN remains intact, continue to trend labs 01/12/22 TPN still running. Modified swallow unsuccessful again. GI consulted 01/13/22: Pt. agreeable to placement of PEG tube in consulting with Gen Mcgrath this AM. GI is consulted by surgery. He has active bowel sounds but admits that he chokes when he attempts to eat or swallow. Ileus is felt to be resolved. 01/15/2022 interval history: 81-year-old male with history of Parkinson's had small bowl obstruction s/p surgical repairs and has developed dysphagia was unable to swallow, seen by GI and patient had PEG placed on 01/14, patient now seen by implementation project coordinator and tolerating his Gtube,and receiving Parkinson and other medication, will continue to monitor and further recommendation to follow. (2) Adynamic ileus: Code(s): K56.0 - Paralytic ileus Status: Resolved Assessment and Plan: See above (3) Hypokalemia: Code(s): E87.6 - Hypokalemia Status: Resolved Assessment and Plan: potassium is 4.1 today replace potassium as indicated Start KCL at 100ml/hr to help with maintenance Continue to trend labs Potassium is 4.3 today. Resolved. (4) Parkinsons disease: Code(s): G20 - Parkinson's disease Status: Chronic Assessment and Plan: Currently NPO Restart medication as indicated Pt. has been unable to take his Parkinson's meds as he is NPO. He will be having a PEG tube placed and he will then be able to have his medications administered. (5) CKD (chronic kidney disease): Qualifiers: Chronic kidney disease stage: stage 3 (moderate) Chronic kidney disease stage 3 subtype: stage 3a (GFR 45-59) Qualified Code(s): N18.31 - Chronic kidney disease, stage 3a Code(s):
--- NOTE | 2022-01-15 13:08 | WPDGIPROGNO ---
Progress Note: A&P Assessment and Plan (1) PEG (percutaneous endoscopic gastrostomy) status: Code(s): Z93.1 - Gastrostomy status Status: Acute Assessment and Plan: PEG tube placed yesterday appears to be healing well. Plan to advance tube feedings as per primary care service. Continue local care to PEG tube site. Further disposition per primary care service. (2) Dysphagia: Code(s): R13.10 - Dysphagia, unspecified Status: Acute Assessment and Plan: Patient with difficulty swallowing. Is appears to been exacerbated after surgery for small-bowel obstruction. Likely related to Parkinson's disease. Exacerbated by not receiving medications for interval of time. Resume tube feedings for Parkinson's disease now that PEG tube in place. (3) Parkinsons disease: Code(s): G20 - Parkinson's disease Status: Chronic Assessment and Plan: Patient with underlying Parkinson's disease likely contributes to difficulty swallowing. Hopefully re implementation of medications will help. (4) Small bowel obstruction with strangulation or infarction: Status: Resolved Assessment and Plan: patient is status post surgical therapy for small-bowel obstruction with infarction. This appears resolved. Ileus postoperatively is also improved. Subjective Date/time seen: 01/15/22 13:08 Patient alert. Tolerating PEG tube without difficulty. Denies abdominal pain nausea vomiting. Tolerating tube feedings at a low rate this morning. Review of Systems Review of Systems: Review of systems noncontributory. Exam Narrative: Physical exam reveals patient be comfortable lying in bed. HEENT exam reveals no icterus. Lungs are clear. Heart without murmur. Abdomen bowel sounds present soft nontender peg tube left upper quadrant healing well. Midline low suprapubic scar also healing well. Objective Data Vital Signs Vital Signs: Vital Signs - 24 hr 01/14/22 14:00 01/14/22 22:00 01/14/22 20:00 Temperature 97.3 F L 98.9 F Pulse Rate 59 L 73 Respiratory Rate 24 H 16 Blood Pressure 115/70 106/66 Pulse Oximetry 99 99 Oxygen Delivery Room Air 01/15/22 06:00 01/15/22 10:23 01/15/22 11:10 Temperature 97.3 F L Pulse Rate 82 72 Respiratory Rate 18 Blood Pressure 96/67 L Pulse Oximetry 98 Oxygen Delivery Room Air 01/15/22 11:26 01/15/22 08:00 Temperature Pulse Rate Respiratory Rate Blood Pressure Pulse Oximetry Oxygen Delivery Room Air Room Air Intake/Output Intake/Output: Intake & Output 01/12/22 01/13/22 01/14/22 01/15/22 23:59 23:59 23:59 23:59 Intake Total 7015 5255 4505 1200 Output Total 8863 437 5323 600 Balance 5265 4505 2755 600 Meds/Results Medications: Active Medications Generic Name Dose Route Start Last Admin Trade Name Freq PRN Reason Stop Dose Admin Acetaminophen 500 mg 01/01/22 09:32 01/14/22 20:31 Acetaminophen 500 Mg Tablet PO 500 mg Q6H PRN Administration Mild Pain (1-3) or Fever Hydrocodone Bitart/Acetaminophen 1 tab 01/01/22 09:32 Hydrocodone/Acetaminophen (*Crx) 5-325 Mg Tablet PO Q4H PRN Pain Rated 7-10 Carbidopa/Levodopa 3 tablet 01/15/22 09:50 01/15/22 10:22 Carbidopa/Levodopa 25/100 Mg Tablet FEED TUBE 3 tablet QID MARIANA Administration Enoxaparin Sodium 40 mg 12/30/21 09:00 01/15/22 10:22 Enoxaparin 40 Mg/0.4 Ml Syringe SUB-Q 40 mg DAILY MARIANA Administration Hydralazine HCl 10 mg 01/02/22 16:08 01/04/22 05:56 Hydralazine Hcl 20 Mg/Ml Vial IV PUSH 10 mg Q6HR PRN Administration Blood Pressure - High Ibuprofen 800 mg in 200 mls @ 400 mls/hr 01/01/22 09:32 01/15/22 06:05 Caldolor 800 Mg/200 Ml IVPB Infused Q6H PRN Infusion Pain Rated 1-3 Dextrose 1,000 mls @ 50 mls/hr 01/04/22 11:02 Dextrose 10% IV CONT .Q20H PRN if PN is interrupted Potassium Chloride/Sodium Chloride 1,000 mls @ 100 mls/hr
[2022-01-15 14:00] VITALS: BP 90/61; PULSE 70; RESP 16; TEMP 36.2; O2SAT 100
[2022-01-15 18:07] LABS: Glucose Point of Care 79 mg/dl (65-105)
[2022-01-15 21:03] VITALS: BP 100/62; PULSE 80; RESP 16; TEMP 36.9; O2SAT 98
[2022-01-15 21:23] VITALS: PULSE 78
[2022-01-16] VITALS (7 sets, daily range): BP systolic 81–102; BP diastolic 54–60; PULSE 60–87; RESP 16–20; TEMP 36.3–36.9; O2SAT 93–100
[2022-01-16 03:29] LABS: Hematocrit 32.6 % (42.0-52.0); Hemoglobin 10.6 g/dL (14.0-18.0); Mean Corpuscular HGB Conc 32.5 g/dl (32-36); Mean Corpuscular Hemoglobin 30.8 pg (26-34); Mean Corpuscular Volume 94.8 fl (80-100); Mean Platelet Volume 10.2 fl (7.4-10.4); Platelet Count Result 281 k/mm3 (150-375); Red Blood Count 3.44 M/mm3 (4.6-6.20); Red Cell Distribution Width 13.8 % (11.5-14.5); White Blood Count 16.7 K/mm3 (4.5-10.0)
[2022-01-16 03:45] LABS: Anion Gap 5 mmol/L (8-16); Blood Urea Nitrogen 21 mg/dL (9-20); Calcium 7.8 mg/dL (8.4-10.2); Carbon Dioxide 24 mmol/L (22-30); Chloride 101 mmol/L (98-107); Estimated CRCL calculation 53 ml/min; Estimated Glomerular Filt Rate > 60; Glucose 90 mg/dL (65-110); Magnesium 2.1 mg/dL (1.6-2.3); Potassium 4.7 mmol/L (3.4-5.0); Sodium 130 mmol/L (137-145)
[2022-01-16] MEDS: LANSOPRAZOLE ORAL SUSP 30 MG/10 ML ORAL.SUSP FEED TUBE (05:54)
[2022-01-16] MEDS: CENTRAL LINE FLUSH 10 ML IV PUSH ×3 (05:56→20:13)
[2022-01-16 07:37] LABS: Glucose Point of Care 82 mg/dl (65-105)
[2022-01-16] MEDS: CARBIDOPA/LEVODOPA 25/100 MG TABLET 3 TABLET FEED TUBE ×4 (09:20→20:13)
[2022-01-16] MEDS: KCL 40 MEQ/0.45% NS 1,000 ML 100 ML IV CONT (09:21)
[2022-01-16] MEDS: ENOXAPARIN 40 MG/0.4 ML SYRINGE SUB-Q (09:21)
[2022-01-16] MEDS: METOPROLOL TARTRATE 12.5 MG TABLET FEED TUBE ×2 (09:21→20:12)
[2022-01-16 11:59] LABS: Glucose Point of Care 66 mg/dl (65-105)
--- NOTE | 2022-01-16 12:37 | PC.NURSE ---
I received a call from NEUROSCIENCE SPECIALIST that pt was having diarrhea. NEUROSCIENCE SPECIALIST repeated stressed that I needed to change the PEG feeding formula. NEUROSCIENCE SPECIALIST did not indicate any details about pt's bowel movements nor was the output documented anywhere. After researching, DANNIE states in her report that pt had 3 loose BMs that she is referring to as diarrhea but did not actually document it anywhere including but not limited to I/O nor GI documentations.
--- NOTE | 2022-01-16 14:03 | P.PNIM_ITS ---
Progress Note: A&P Assessment and Plan (1) Small bowel obstruction with strangulation or infarction: Status: Resolved Assessment and Plan: * CT abd/pelvis suggestive of partial small bowel obstruction. * General surgery consulted and appreciate recommendations. * Small bowel series with slow transit of contrast out of the stomach after 2 hours and possible closed loop obstruction. * 12/30/21 s/p small bowel resection with infarction.? * 01/01/22 NG pulled out by patient today. Okay to leave out per surgery. Advanced to clears. Continue lowered dose IV fluids and pain control. Ambulate in the hallway. PT/OT consulted. * 01/02/22 No emesis, flatus or BM. Taking in clear liquids without c/o worsening pain. Reinforced ambulating. Patient taking in adequate oral liquids and UOP stable. Saline lock IV fluids. Continue current management. Diet advancement per Surgery. * 01/03/2022 patient with N/V with brown bile, Will monitor h/h. * 01/04/22: patient to have NG tube placed secondary to physical exam today demonstrating no bowel sounds, but continued nausea and vomiting. Discussed with General surgery and they ordered PICC line placement for TPN initiation as well as NG. It should be noted the patient also failed his modified barium swallow yesterday with a definite abnormal finger NG will state of swallowing placing him at high risk for aspiration. * 01/05/[address], no bowel sounds, TPN running, small bowel xray is pending * 01/06/22 abd xray dilated small bowel, consistent with adynamic ileus, Small bowel xray: Almost all of the contrast remains in the stomach after 4 hours, NG tube remains in place and is draining a dark green thick bile * 01/07/22 stable at this time. still sucking a thick green bile. KUB dilated small bowel likely adynamic ileus * 01/08/22 Remained stable. Bile does seem to be more than clear side. small- bowel follow-through does indicate normal transition time consistent with adynamic ileus * 01/09/22 Ileus remains. Continue with NG tube and TPN repeat abdomen in the morning * 01/10/22 Ileus remains. Continue with NG tube and TPN, abdominal xray does not indicate any current changes * 01/11/22 NG tube is out, appears comfortable, TPN remains intact, continue to trend labs * 01/12/22 TPN still running. Modified swallow unsuccessful again. GI consulted * 01/13/22: Pt. agreeable to placement of PEG tube in consulting with Gen Mcgrath this AM. GI is consulted by surgery. He has active bowel sounds but admits that he chokes when he attempts to eat or swallow. Ileus is felt to be resolved. * * 01/16/2022 interval history: 81-year-old male with history of Parkinson's had small bowl obstruction s/p surgical repairs and has developed dysphagia was unable to swallow, seen by GI and patient had PEG placed on 01/14, patient is seen by GI and recommended to continue tube feeding, patient now seen by dolphin researcher and tolerating his Gtube,and receiving Parkinson and other medication, will continue to monitor and further recommendation to follow. (2) Adynamic ileus: Code(s): K56.0 - Paralytic ileus Status: Resolved Assessment and Plan: * See above (3) Hypokalemia: Code(s): E87.6 - Hypokalemia Status: Resolved Assessment and Plan: * potassium is 4.1 today * replace potassium as indicated * Start KCL at 100ml/hr to help with maintenance * Continue to trend labs * Potassium is 4.3 today. Resolved. (4) Parkinsons disease: Code(s): G20 - Parkinson's disease Status: Chronic Assessment and Plan: Currentl
--- NOTE | 2022-01-16 14:03 | PM.IMPN ---
Progress Note: A&P Assessment and Plan (1) Small bowel obstruction with strangulation or infarction: Status: Resolved Assessment and Plan: CT abd/pelvis suggestive of partial small bowel obstruction. General surgery consulted and appreciate recommendations. Small bowel series with slow transit of contrast out of the stomach after 2 hours and possible closed loop obstruction. 12/30/21 s/p small bowel resection with infarction.? 01/01/22 NG pulled out by patient today. Okay to leave out per surgery. Advanced to clears. Continue lowered dose IV fluids and pain control. Ambulate in the hallway. PT/OT consulted. 01/02/22 No emesis, flatus or BM. Taking in clear liquids without c/o worsening pain. Reinforced ambulating. Patient taking in adequate oral liquids and UOP stable. Saline lock IV fluids. Continue current management. Diet advancement per Surgery. 01/03/2022 patient with N/V with brown bile, Will monitor h/h. 01/04/22: patient to have NG tube placed secondary to physical exam today demonstrating no bowel sounds, but continued nausea and vomiting. Discussed with General surgery and they ordered PICC line placement for TPN initiation as well as NG. It should be noted the patient also failed his modified barium swallow yesterday with a definite abnormal finger NG will state of swallowing placing him at high risk for aspiration. 01/05/[address], no bowel sounds, TPN running, small bowel xray is pending 01/06/22 abd xray dilated small bowel, consistent with adynamic ileus, Small bowel xray: Almost all of the contrast remains in the stomach after 4 hours, NG tube remains in place and is draining a dark green thick bile 01/07/22 stable at this time. still sucking a thick green bile. KUB dilated small bowel likely adynamic ileus 01/08/22 Remained stable. Bile does seem to be more than clear side. small-bowel follow-through does indicate normal transition time consistent with adynamic ileus 01/09/22 Ileus remains. Continue with NG tube and TPN repeat abdomen in the morning 01/10/22 Ileus remains. Continue with NG tube and TPN, abdominal xray does not indicate any current changes 01/11/22 NG tube is out, appears comfortable, TPN remains intact, continue to trend labs 01/12/22 TPN still running. Modified swallow unsuccessful again. GI consulted 01/13/22: Pt. agreeable to placement of PEG tube in consulting with Gen Mcgrath this AM. GI is consulted by surgery. He has active bowel sounds but admits that he chokes when he attempts to eat or swallow. Ileus is felt to be resolved. 01/16/2022 interval history: 81-year-old male with history of Parkinson's had small bowl obstruction s/p surgical repairs and has developed dysphagia was unable to swallow, seen by GI and patient had PEG placed on 01/14, patient is seen by GI and recommended to continue tube feeding, patient now seen by practical nursing teacher and tolerating his Gtube,and receiving Parkinson and other medication, will continue to monitor and further recommendation to follow. (2) Adynamic ileus: Code(s): K56.0 - Paralytic ileus Status: Resolved Assessment and Plan: See above (3) Hypokalemia: Code(s): E87.6 - Hypokalemia Status: Resolved Assessment and Plan: potassium is 4.1 today replace potassium as indicated Start KCL at 100ml/hr to help with maintenance Continue to trend labs Potassium is 4.3 today. Resolved. (4) Parkinsons disease: Code(s): G20 - Parkinson's disease Status: Chronic Assessment and Plan: Currently NPO Restart medication as indicated Pt. has been unable to take his Parkinson's meds as he is NPO. He will be having a PEG tube placed and he will then be able to have his medications administered. (5) CKD (chronic kidney disease): Qualifiers: Chronic kidney disease stage: stage 3 (moderate) Chronic kidney disease stage 3 subtype: stage 3a (GFR 45-59) Qualified Cod
[2022-01-16] MEDS: SODIUM CHLORIDE 0.9% IV 1,000 ML 100 ML IV CONT (15:06)
--- NOTE | 2022-01-16 15:32 | PCOTNOTE ---
Unable to see patient today for OT. With PT earlier when attempted. Will continue plan of care for OT tomorrow.
[2022-01-16 16:39] LABS: Glucose Point of Care 98 mg/dl (65-105)
[2022-01-16 18:15] LABS: Glucose Point of Care 103 mg/dl (65-105)
[2022-01-16 23:29] LABS: Glucose Point of Care 91 mg/dl (65-105)
[2022-01-17] MEDS: SODIUM CHLORIDE 0.9% IV 1,000 ML 100 ML IV CONT ×2 (01:30→12:33)
[2022-01-17 05:12] LABS: Hematocrit 27.9 % (42.0-52.0); Hemoglobin 9.1 g/dL (14.0-18.0); Mean Corpuscular HGB Conc 32.6 g/dl (32-36); Mean Corpuscular Hemoglobin 30.8 pg (26-34); Mean Corpuscular Volume 94.6 fl (80-100); Platelet Count Result 244 k/mm3 (150-375); Red Blood Count 2.95 M/mm3 (4.6-6.20); Red Cell Distribution Width 13.9 % (11.5-14.5); White Blood Count 15.3 K/mm3 (4.5-10.0)
[2022-01-17 05:24] LABS: Triglycerides 140 mg/dL (<150)
[2022-01-17 05:44] VITALS: BP 102/62; PULSE 67; RESP 16; TEMP 36.6; O2SAT 100
[2022-01-17] MEDS: LANSOPRAZOLE ORAL SUSP 30 MG/10 ML ORAL.SUSP FEED TUBE (05:59)
[2022-01-17] MEDS: CENTRAL LINE FLUSH 10 ML IV PUSH ×3 (06:02→20:04)
[2022-01-17 07:19] LABS: Anion Gap 8 mmol/L (8-16); Blood Urea Nitrogen 16 mg/dL (9-20); Calcium 7.8 mg/dL (8.4-10.2); Carbon Dioxide 25 mmol/L (22-30); Chloride 101 mmol/L (98-107); Estimated CRCL calculation 53 ml/min; Estimated Glomerular Filt Rate > 60; Glucose 95 mg/dL (65-110); Potassium 3.8 mmol/L (3.4-5.0); Sodium 134 mmol/L (137-145)
[2022-01-17] MEDS: CARBIDOPA/LEVODOPA 25/100 MG TABLET 3 TABLET FEED TUBE ×4 (08:22→20:03)
[2022-01-17] MEDS: ENOXAPARIN 40 MG/0.4 ML SYRINGE SUB-Q (08:22)
[2022-01-17 08:23] VITALS: PULSE 62
[2022-01-17] MEDS: ACETAMINOPHEN 500 MG TABLET PO (08:23)
--- NOTE | 2022-01-17 10:08 | P.PNIM_ITS ---
Progress Note: A&P Assessment and Plan (1) Small bowel obstruction with strangulation or infarction: Status: Resolved Assessment and Plan: * CT abd/pelvis suggestive of partial small bowel obstruction. * General surgery consulted and appreciate recommendations. * Small bowel series with slow transit of contrast out of the stomach after 2 hours and possible closed loop obstruction. * 12/30/21 s/p small bowel resection with infarction.? * 01/01/22 NG pulled out by patient today. Okay to leave out per surgery. Advanced to clears. Continue lowered dose IV fluids and pain control. Ambulate in the hallway. PT/OT consulted. * 01/02/22 No emesis, flatus or BM. Taking in clear liquids without c/o worsening pain. Reinforced ambulating. Patient taking in adequate oral liquids and UOP stable. Saline lock IV fluids. Continue current management. Diet advancement per Surgery. * 01/03/2022 patient with N/V with brown bile, Will monitor h/h. * 01/04/22: patient to have NG tube placed secondary to physical exam today demonstrating no bowel sounds, but continued nausea and vomiting. Discussed with General surgery and they ordered PICC line placement for TPN initiation as well as NG. It should be noted the patient also failed his modified barium swallow yesterday with a definite abnormal finger NG will state of swallowing placing him at high risk for aspiration. * 01/05/[address], no bowel sounds, TPN running, small bowel xray is pending * 01/06/22 abd xray dilated small bowel, consistent with adynamic ileus, Small bowel xray: Almost all of the contrast remains in the stomach after 4 hours, NG tube remains in place and is draining a dark green thick bile * 01/07/22 stable at this time. still sucking a thick green bile. KUB dilated small bowel likely adynamic ileus * 01/08/22 Remained stable. Bile does seem to be more than clear side. small- bowel follow-through does indicate normal transition time consistent with adynamic ileus * 01/09/22 Ileus remains. Continue with NG tube and TPN repeat abdomen in the morning * 01/10/22 Ileus remains. Continue with NG tube and TPN, abdominal xray does not indicate any current changes * 01/11/22 NG tube is out, appears comfortable, TPN remains intact, continue to trend labs * 01/12/22 TPN still running. Modified swallow unsuccessful again. GI consulted * 01/13/22: Pt. agreeable to placement of PEG tube in consulting with Gen Mcgrath this AM. GI is consulted by surgery. He has active bowel sounds but admits that he chokes when he attempts to eat or swallow. Ileus is felt to be resolved. * * 01/17/2022 interval history: 81-year-old male with history of Parkinson's had small bowl obstruction s/p surgical repairs and had developed dysphagia was unable to swallow, seen by GI and patient had PEG placed on 01/14, patient is seen by GI and recommended to continue tube feeding patient now seen by commercial account executive and tolerating his continues Gtubing at 30cc/hr,and receiving Parkinson and other medication, today patient wants to have reevaluation for swallow, will do bedside swallow, will continue to monitor and further recommendation to follow. (2) Adynamic ileus: Code(s): K56.0 - Paralytic ileus Status: Resolved Assessment and Plan: * See above (3) Hypokalemia: Code(s): E87.6 - Hypokalemia Status: Resolved Assessment and Plan: * potassium is 4.1 today * replace potassium as indicated * Start KCL at 100ml/hr to help with maintenance * Continue to trend labs * Potassium is 4.3 today. Resolved. (4) Parkinsons disease:
--- NOTE | 2022-01-17 10:08 | PM.IMPN ---
Progress Note: A&P Assessment and Plan (1) Small bowel obstruction with strangulation or infarction: Status: Resolved Assessment and Plan: CT abd/pelvis suggestive of partial small bowel obstruction. General surgery consulted and appreciate recommendations. Small bowel series with slow transit of contrast out of the stomach after 2 hours and possible closed loop obstruction. 12/30/21 s/p small bowel resection with infarction.? 01/01/22 NG pulled out by patient today. Okay to leave out per surgery. Advanced to clears. Continue lowered dose IV fluids and pain control. Ambulate in the hallway. PT/OT consulted. 01/02/22 No emesis, flatus or BM. Taking in clear liquids without c/o worsening pain. Reinforced ambulating. Patient taking in adequate oral liquids and UOP stable. Saline lock IV fluids. Continue current management. Diet advancement per Surgery. 01/03/2022 patient with N/V with brown bile, Will monitor h/h. 01/04/22: patient to have NG tube placed secondary to physical exam today demonstrating no bowel sounds, but continued nausea and vomiting. Discussed with General surgery and they ordered PICC line placement for TPN initiation as well as NG. It should be noted the patient also failed his modified barium swallow yesterday with a definite abnormal finger NG will state of swallowing placing him at high risk for aspiration. 01/05/[address], no bowel sounds, TPN running, small bowel xray is pending 01/06/22 abd xray dilated small bowel, consistent with adynamic ileus, Small bowel xray: Almost all of the contrast remains in the stomach after 4 hours, NG tube remains in place and is draining a dark green thick bile 01/07/22 stable at this time. still sucking a thick green bile. KUB dilated small bowel likely adynamic ileus 01/08/22 Remained stable. Bile does seem to be more than clear side. small-bowel follow-through does indicate normal transition time consistent with adynamic ileus 01/09/22 Ileus remains. Continue with NG tube and TPN repeat abdomen in the morning 01/10/22 Ileus remains. Continue with NG tube and TPN, abdominal xray does not indicate any current changes 01/11/22 NG tube is out, appears comfortable, TPN remains intact, continue to trend labs 01/12/22 TPN still running. Modified swallow unsuccessful again. GI consulted 01/13/22: Pt. agreeable to placement of PEG tube in consulting with Gen Mcgrath this AM. GI is consulted by surgery. He has active bowel sounds but admits that he chokes when he attempts to eat or swallow. Ileus is felt to be resolved. 01/17/2022 interval history: 81-year-old male with history of Parkinson's had small bowl obstruction s/p surgical repairs and had developed dysphagia was unable to swallow, seen by GI and patient had PEG placed on 01/14, patient is seen by GI and recommended to continue tube feeding patient now seen by human resource internship and tolerating his continues Gtubing at 30cc/hr,and receiving Parkinson and other medication, today patient wants to have reevaluation for swallow, will do bedside swallow, will continue to monitor and further recommendation to follow. (2) Adynamic ileus: Code(s): K56.0 - Paralytic ileus Status: Resolved Assessment and Plan: See above (3) Hypokalemia: Code(s): E87.6 - Hypokalemia Status: Resolved Assessment and Plan: potassium is 4.1 today replace potassium as indicated Start KCL at 100ml/hr to help with maintenance Continue to trend labs Potassium is 4.3 today. Resolved. (4) Parkinsons disease: Code(s): G20 - Parkinson's disease Status: Chronic Assessment and Plan: Currently NPO Restart medication as indicated Pt. has been unable to take his Parkinson's meds as he is NPO. He will be having a PEG tube placed and he will then be able to have his medications administered. (5) CKD (chronic kidney disease): Qualifiers: Chronic kidney disease
[2022-01-17 12:08] LABS: Glucose Point of Care 78 mg/dl (65-105)
[2022-01-17 14:00] VITALS: BP 99/65; PULSE 66; RESP 16; TEMP 35.9; O2SAT 99
[2022-01-17 18:22] LABS: Glucose Point of Care 85 mg/dl (65-105)
[2022-01-17 20:00] VITALS: PULSE 64; RESP 16; O2SAT 99
[2022-01-17 20:03] VITALS: PULSE 64
[2022-01-17] MEDS: METOPROLOL TARTRATE 12.5 MG TABLET FEED TUBE (20:03)
[2022-01-17 22:00] VITALS: BP 129/64; PULSE 63; RESP 18; TEMP 35.9; O2SAT 97
[2022-01-18 05:08] LABS: Basophils Absolute Auto 0.1 K/mm3 (0.0-0.1); Basophils Percent Auto 0.6 % (0.2-1.2); Eosinophils Absolute Auto 0.4 K/mm3 (0-0.3); Eosinophils Percent Auto 4.9 % (0-4.4); Hematocrit 27.7 % (42.0-52.0); Immature Granulocyte Absolute 0.08 K/mm3 (0.00-0.031); Lymphocytes Absolute Auto 1.01 K/mm3 (0.9-3.2); Mean Corpuscular HGB Conc 32.5 g/dl (32-36); Mean Corpuscular Hemoglobin 30.8 pg (26-34); Mean Corpuscular Volume 94.9 fl (80-100); Mean Platelet Volume 9.8 fl (7.4-10.4); Monocytes Absolute Auto 0.5 K/mm3 (0.1-0.6); Monocytes Percent Auto 6.4 % (2.6-8.5); Neutrophils Absolute Auto 6.3 K/mm3 (1.3-6.7); Neutrophils Percent Auto 75.1 % (45.5-73.1); Platelet Count Result 236 k/mm3 (150-375); Red Blood Count 2.92 M/mm3 (4.6-6.20); Red Cell Distribution Width 13.7 % (11.5-14.5); White Blood Count 8.4 K/mm3 (4.5-10.0)
[2022-01-18 05:20] LABS: INR 1.1
[2022-01-18 05:22] LABS: Alanine Aminotransferase 10 U/L (6-50); Albumin Level 2.6 g/dL (3.5-5.1); Alkaline Phosphatase 99 U/L (38-126); Anion Gap 4 mmol/L (8-16); Aspartate Amino Transferase 26 U/L (17-59); Bilirubin,Total 0.4 mg/dL (0.2-1.3); Blood Urea Nitrogen 15 mg/dL (9-20); Calcium 7.7 mg/dL (8.4-10.2); Carbon Dioxide 25 mmol/L (22-30); Chloride 104 mmol/L (98-107); Estimated CRCL calculation 59 ml/min; Estimated Glomerular Filt Rate > 60; Glucose 108 mg/dL (65-110); Magnesium 1.9 mg/dL (1.6-2.3); Potassium 3.8 mmol/L (3.4-5.0); Sodium 133 mmol/L (137-145)
[2022-01-18 05:29] LABS: Transferrin 101 mg/dL (206-381)
[2022-01-18] MEDS: CENTRAL LINE FLUSH 10 ML IV PUSH ×2 (05:46→22:00)
[2022-01-18] MEDS: LANSOPRAZOLE ORAL SUSP 30 MG/10 ML ORAL.SUSP FEED TUBE (05:46)
[2022-01-18 06:00] VITALS: BP 131/70; PULSE 64; RESP 17; TEMP 35.9; O2SAT 100
[2022-01-18] MEDS: SODIUM CHLORIDE 0.9% IV 1,000 ML 100 ML IV CONT ×2 (09:44→19:36)
[2022-01-18] MEDS: CARBIDOPA/LEVODOPA 25/100 MG TABLET 3 TABLET FEED TUBE ×4 (09:45→20:36)
[2022-01-18] MEDS: METOPROLOL TARTRATE 12.5 MG TABLET FEED TUBE ×2 (09:46→20:36)
[2022-01-18] MEDS: ENOXAPARIN 40 MG/0.4 ML SYRINGE SUB-Q (09:46)
[2022-01-18 12:07] LABS: Glucose Point of Care 90 mg/dl (65-105)
[2022-01-18 14:16] VITALS: BP 103/63; PULSE 66; RESP 18; TEMP 36.3; O2SAT 100
--- NOTE | 2022-01-18 17:35 | P.PNIM_ITS ---
Progress Note: A&P Assessment and Plan (1) Small bowel obstruction with strangulation or infarction: Status: Resolved Assessment and Plan: * CT abd/pelvis suggestive of partial small bowel obstruction. * General surgery consulted and appreciate recommendations. * Small bowel series with slow transit of contrast out of the stomach after 2 hours and possible closed loop obstruction. * 12/30/21 s/p small bowel resection with infarction.? * 01/01/22 NG pulled out by patient today. Okay to leave out per surgery. Advanced to clears. Continue lowered dose IV fluids and pain control. Ambulate in the hallway. PT/OT consulted. * 01/02/22 No emesis, flatus or BM. Taking in clear liquids without c/o worsening pain. Reinforced ambulating. Patient taking in adequate oral liquids and UOP stable. Saline lock IV fluids. Continue current management. Diet advancement per Surgery. * 01/03/2022 patient with N/V with brown bile, Will monitor h/h. * 01/04/22: patient to have NG tube placed secondary to physical exam today demonstrating no bowel sounds, but continued nausea and vomiting. Discussed with General surgery and they ordered PICC line placement for TPN initiation as well as NG. It should be noted the patient also failed his modified barium swallow yesterday with a definite abnormal finger NG will state of swallowing placing him at high risk for aspiration. * 01/05/[address], no bowel sounds, TPN running, small bowel xray is pending * 01/06/22 abd xray dilated small bowel, consistent with adynamic ileus, Small bowel xray: Almost all of the contrast remains in the stomach after 4 hours, NG tube remains in place and is draining a dark green thick bile * 01/07/22 stable at this time. still sucking a thick green bile. KUB dilated small bowel likely adynamic ileus * 01/08/22 Remained stable. Bile does seem to be more than clear side. small- bowel follow-through does indicate normal transition time consistent with adynamic ileus * 01/09/22 Ileus remains. Continue with NG tube and TPN repeat abdomen in the morning * 01/10/22 Ileus remains. Continue with NG tube and TPN, abdominal xray does not indicate any current changes * 01/11/22 NG tube is out, appears comfortable, TPN remains intact, continue to trend labs * 01/12/22 TPN still running. Modified swallow unsuccessful again. GI consulted * 01/13/22: Pt. agreeable to placement of PEG tube in consulting with Gen Mcgrath this AM. GI is consulted by surgery. He has active bowel sounds but admits that he chokes when he attempts to eat or swallow. Ileus is felt to be resolved. * * 01/18/2022 interval history: 81-year-old male with history of Parkinson's had small bowl obstruction s/p surgical repairs and had developed dysphagia was unable to swallow, seen by GI and patient had PEG placed on 01/14, patient is seen by GI and recommended to continue tube feeding patient now seen by rn l and d and tolerating his continues Gtubing at 30cc/hr,and receiving Parkinson and other medication, on 01/17 patient wanted to have reevaluation for swallow as he wish to be able to eat, discussed with ST patient has failed, 2 MBS and try one more time MBS, will continue to monitor and further recommendation to follow. (2) Adynamic ileus: Code(s): K56.0 - Paralytic ileus Status: Resolved Assessment and Plan: * See above (3) Hypokalemia: Code(s): E87.6 - Hypokalemia Status: Resolved Assessment and Plan: * potassium is 4.1 today * replace potassium as indicated * Start KCL at 100ml/hr to help with maintenance * Continue to trend labs
--- NOTE | 2022-01-18 17:35 | PM.IMPN ---
Progress Note: A&P Assessment and Plan (1) Small bowel obstruction with strangulation or infarction: Status: Resolved Assessment and Plan: CT abd/pelvis suggestive of partial small bowel obstruction. General surgery consulted and appreciate recommendations. Small bowel series with slow transit of contrast out of the stomach after 2 hours and possible closed loop obstruction. 12/30/21 s/p small bowel resection with infarction.? 01/01/22 NG pulled out by patient today. Okay to leave out per surgery. Advanced to clears. Continue lowered dose IV fluids and pain control. Ambulate in the hallway. PT/OT consulted. 01/02/22 No emesis, flatus or BM. Taking in clear liquids without c/o worsening pain. Reinforced ambulating. Patient taking in adequate oral liquids and UOP stable. Saline lock IV fluids. Continue current management. Diet advancement per Surgery. 01/03/2022 patient with N/V with brown bile, Will monitor h/h. 01/04/22: patient to have NG tube placed secondary to physical exam today demonstrating no bowel sounds, but continued nausea and vomiting. Discussed with General surgery and they ordered PICC line placement for TPN initiation as well as NG. It should be noted the patient also failed his modified barium swallow yesterday with a definite abnormal finger NG will state of swallowing placing him at high risk for aspiration. 01/05/[address], no bowel sounds, TPN running, small bowel xray is pending 01/06/22 abd xray dilated small bowel, consistent with adynamic ileus, Small bowel xray: Almost all of the contrast remains in the stomach after 4 hours, NG tube remains in place and is draining a dark green thick bile 01/07/22 stable at this time. still sucking a thick green bile. KUB dilated small bowel likely adynamic ileus 01/08/22 Remained stable. Bile does seem to be more than clear side. small-bowel follow-through does indicate normal transition time consistent with adynamic ileus 01/09/22 Ileus remains. Continue with NG tube and TPN repeat abdomen in the morning 01/10/22 Ileus remains. Continue with NG tube and TPN, abdominal xray does not indicate any current changes 01/11/22 NG tube is out, appears comfortable, TPN remains intact, continue to trend labs 01/12/22 TPN still running. Modified swallow unsuccessful again. GI consulted 01/13/22: Pt. agreeable to placement of PEG tube in consulting with Gen Mcgrath this AM. GI is consulted by surgery. He has active bowel sounds but admits that he chokes when he attempts to eat or swallow. Ileus is felt to be resolved. 01/18/2022 interval history: 81-year-old male with history of Parkinson's had small bowl obstruction s/p surgical repairs and had developed dysphagia was unable to swallow, seen by GI and patient had PEG placed on 01/14, patient is seen by GI and recommended to continue tube feeding patient now seen by automobile contract clerk and tolerating his continues Gtubing at 30cc/hr,and receiving Parkinson and other medication, on 01/17 patient wanted to have reevaluation for swallow as he wish to be able to eat, discussed with ST patient has failed, 2 MBS and try one more time MBS, will continue to monitor and further recommendation to follow. (2) Adynamic ileus: Code(s): K56.0 - Paralytic ileus Status: Resolved Assessment and Plan: See above (3) Hypokalemia: Code(s): E87.6 - Hypokalemia Status: Resolved Assessment and Plan: potassium is 4.1 today replace potassium as indicated Start KCL at 100ml/hr to help with maintenance Continue to trend labs Potassium is 4.3 today. Resolved. (4) Parkinsons disease: Code(s): G20 - Parkinson's disease Status: Chronic Assessment and Plan: Currently NPO Restart medication as indicated Pt. has been unable to take his Parkinson's meds as he is NPO. He will be having a PEG tube placed and he will then be able to have his medications administered. (5)
[2022-01-18 19:07] LABS: Glucose Point of Care 102 mg/dl (65-105)
[2022-01-18 20:00] VITALS: PULSE 86; RESP 20; O2SAT 99
[2022-01-18 20:36] VITALS: PULSE 66
[2022-01-18 22:00] VITALS: BP 122/72; PULSE 86; RESP 20; TEMP 36.4; O2SAT 99
[2022-01-19 00:38] LABS: Glucose Point of Care 100 mg/dl (65-105)
[2022-01-19] MEDS: SODIUM CHLORIDE 0.9% IV 1,000 ML 100 ML IV CONT (05:46)
[2022-01-19] MEDS: LANSOPRAZOLE ORAL SUSP 30 MG/10 ML ORAL.SUSP FEED TUBE (05:46)
[2022-01-19] MEDS: CENTRAL LINE FLUSH 10 ML IV PUSH (05:47)
[2022-01-19 06:00] VITALS: BP 132/67; PULSE 60; RESP 16; TEMP 36.4; O2SAT 98
[2022-01-19 06:06] LABS: Anion Gap 8 mmol/L (8-16); Blood Urea Nitrogen 12 mg/dL (9-20); Calcium 7.5 mg/dL (8.4-10.2); Carbon Dioxide 26 mmol/L (22-30); Chloride 102 mmol/L (98-107); Estimated CRCL calculation 58 ml/min; Estimated Glomerular Filt Rate > 60; Glucose 96 mg/dL (65-110); Magnesium 1.9 mg/dL (1.6-2.3); Potassium 3.5 mmol/L (3.4-5.0); Sodium 136 mmol/L (137-145)
[2022-01-19 06:12] LABS: Hematocrit 27.8 % (42.0-52.0); Hemoglobin 8.8 g/dL (14.0-18.0); Mean Corpuscular HGB Conc 31.7 g/dl (32-36); Mean Corpuscular Hemoglobin 30.2 pg (26-34); Mean Corpuscular Volume 95.5 fl (80-100); Mean Platelet Volume 10.7 fl (7.4-10.4); Platelet Count Result 245 k/mm3 (150-375); Red Blood Count 2.91 M/mm3 (4.6-6.20); Red Cell Distribution Width 13.5 % (11.5-14.5); White Blood Count 6.6 K/mm3 (4.5-10.0)
[2022-01-19 06:55] LABS: Glucose Point of Care 96 mg/dl (65-105)
[2022-01-19] MEDS: CARBIDOPA/LEVODOPA 25/100 MG TABLET 3 TABLET FEED TUBE ×2 (10:12→14:12)
[2022-01-19] MEDS: METOPROLOL TARTRATE 12.5 MG TABLET FEED TUBE (10:12)
[2022-01-19] MEDS: ENOXAPARIN 40 MG/0.4 ML SYRINGE SUB-Q (10:13)
--- NOTE | 2022-01-19 10:35 | PCPTNOTE ---
Attempted to see patient for PT at this time, however patient declined due to getting a shave from son at this time.
[2022-01-19 11:26] LABS: Glucose Point of Care 103 mg/dl (65-105)
--- NOTE | 2022-01-19 11:42 | PCNFU ---
Nutrition Follow-Up Complete: Severe malnutrition related to ileus vs small bowel obstruction, as evidenced by weight loss 11%/6 months, severe muscle wasting, and need for parenteral nutrition. Goal: Meet estimated needs Pt current nutrition is NPO, tube feeding - Jevity 1.2 @ 30ml/hr. Nutrition recommendation: Advance to goal rate of 75ml/hr Last recorded weight is 75 kg - stable at this time. Bowel Motility: +BM 01/18 Labs Reviewed: Hgb:8.8, HCT:27.8, NA:136 Meds Noted: KCL, zofran, lovenox Skin: WNL Additional Notes: Pt continues on tube feeds, TPN d/c'd per rec. Tolerating but has not advanced to goal rate. Notified nursing, tube feeds to advance today towards goal rate. Monitoring labs, intakes, weights, diet advancement, plan of care. Follow up Tuesdays and Fridays per policy
[2022-01-19 14:00] VITALS: BP 104/50; PULSE 75; RESP 16; TEMP 37.3; O2SAT 99
--- NOTE | 2022-01-19 14:44 | P.DS_ITS ---
DS: Admitting Diagnosis Discharge Date 01/19/2022 Admitting Diagnosis abdominal pain DS: Discharge Diagnosis Discharge Diagnosis (1) Small bowel obstruction with strangulation or infarction: Status: Resolved Assessment and Plan: * CT abd/pelvis suggestive of partial small bowel obstruction. * General surgery consulted and appreciate recommendations. * Small bowel series with slow transit of contrast out of the stomach after 2 hours and possible closed loop obstruction. * 12/30/21 s/p small bowel resection with infarction.? * 01/01/22 NG pulled out by patient today. Okay to leave out per surgery. Advanced to clears. Continue lowered dose IV fluids and pain control. Ambulate in the hallway. PT/OT consulted. * 01/02/22 No emesis, flatus or BM. Taking in clear liquids without c/o worsening pain. Reinforced ambulating. Patient taking in adequate oral liquids and UOP stable. Saline lock IV fluids. Continue current management. Diet advancement per Surgery. * 01/03/2022 patient with N/V with brown bile, Will monitor h/h. * 01/04/22: patient to have NG tube placed secondary to physical exam today demonstrating no bowel sounds, but continued nausea and vomiting. Discussed with General surgery and they ordered PICC line placement for TPN initiation as well as NG. It should be noted the patient also failed his modified barium swallow yesterday with a definite abnormal finger NG will state of swallowing placing him at high risk for aspiration. * 01/05/[address], no bowel sounds, TPN running, small bowel xray is pending * 01/06/22 abd xray dilated small bowel, consistent with adynamic ileus, Small bowel xray: Almost all of the contrast remains in the stomach after 4 hours, NG tube remains in place and is draining a dark green thick bile * 01/07/22 stable at this time. still sucking a thick green bile. KUB dilated small bowel likely adynamic ileus * 01/08/22 Remained stable. Bile does seem to be more than clear side. small- bowel follow-through does indicate normal transition time consistent with adynamic ileus * 01/09/22 Ileus remains. Continue with NG tube and TPN repeat abdomen in the morning * 01/10/22 Ileus remains. Continue with NG tube and TPN, abdominal xray does not indicate any current changes * 01/11/22 NG tube is out, appears comfortable, TPN remains intact, continue to trend labs * 01/12/22 TPN still running. Modified swallow unsuccessful again. GI consulted * 01/13/22: Pt. agreeable to placement of PEG tube in consulting with Gen Mcgrath this AM. GI is consulted by surgery. He has active bowel sounds but admits that he chokes when he attempts to eat or swallow. Ileus is felt to be resolved. * * 01/18/2022 interval history: 81-year-old male with history of Parkinson's had small bowl obstruction s/p surgical repairs and had developed dysphagia was unable to swallow, seen by GI and patient had PEG placed on 01/14, patient is seen by GI and recommended to continue tube feeding patient now seen by offset plate preparation supervisor and tolerating his continues Gtubing at 30cc/hr,and receiving Parkinson and other medication, on 01/17 patient wanted to have reevaluation for swallow as he wish to be able to eat, discussed with ST patient has failed, 2 MBS and try one more time MBS, will continue to monitor and further recommendation to follow. (2) Adynamic ileus: Code(s): K56.0 - Paralytic ileus Status: Resolved Assessment and Plan: * See above (3) Hypokalemia: Code(s): E87.6 - Hypokalemia Status: Resolved Assessment and Plan: * potassium is 4.1 today
--- NOTE | 2022-01-19 14:44 | PM.DS ---
DS: Admitting Diagnosis Discharge Date 01/19/2022 Admitting Diagnosis abdominal pain DS: Discharge Diagnosis Discharge Diagnosis (1) Small bowel obstruction with strangulation or infarction: Status: Resolved Assessment and Plan: CT abd/pelvis suggestive of partial small bowel obstruction. General surgery consulted and appreciate recommendations. Small bowel series with slow transit of contrast out of the stomach after 2 hours and possible closed loop obstruction. 12/30/21 s/p small bowel resection with infarction.? 01/01/22 NG pulled out by patient today. Okay to leave out per surgery. Advanced to clears. Continue lowered dose IV fluids and pain control. Ambulate in the hallway. PT/OT consulted. 01/02/22 No emesis, flatus or BM. Taking in clear liquids without c/o worsening pain. Reinforced ambulating. Patient taking in adequate oral liquids and UOP stable. Saline lock IV fluids. Continue current management. Diet advancement per Surgery. 01/03/2022 patient with N/V with brown bile, Will monitor h/h. 01/04/22: patient to have NG tube placed secondary to physical exam today demonstrating no bowel sounds, but continued nausea and vomiting. Discussed with General surgery and they ordered PICC line placement for TPN initiation as well as NG. It should be noted the patient also failed his modified barium swallow yesterday with a definite abnormal finger NG will state of swallowing placing him at high risk for aspiration. 01/05/[address], no bowel sounds, TPN running, small bowel xray is pending 01/06/22 abd xray dilated small bowel, consistent with adynamic ileus, Small bowel xray: Almost all of the contrast remains in the stomach after 4 hours, NG tube remains in place and is draining a dark green thick bile 01/07/22 stable at this time. still sucking a thick green bile. KUB dilated small bowel likely adynamic ileus 01/08/22 Remained stable. Bile does seem to be more than clear side. small-bowel follow-through does indicate normal transition time consistent with adynamic ileus 01/09/22 Ileus remains. Continue with NG tube and TPN repeat abdomen in the morning 01/10/22 Ileus remains. Continue with NG tube and TPN, abdominal xray does not indicate any current changes 01/11/22 NG tube is out, appears comfortable, TPN remains intact, continue to trend labs 01/12/22 TPN still running. Modified swallow unsuccessful again. GI consulted 01/13/22: Pt. agreeable to placement of PEG tube in consulting with Gen Mcgrath this AM. GI is consulted by surgery. He has active bowel sounds but admits that he chokes when he attempts to eat or swallow. Ileus is felt to be resolved. 01/18/2022 interval history: 81-year-old male with history of Parkinson's had small bowl obstruction s/p surgical repairs and had developed dysphagia was unable to swallow, seen by GI and patient had PEG placed on 01/14, patient is seen by GI and recommended to continue tube feeding patient now seen by crocheter hand and tolerating his continues Gtubing at 30cc/hr,and receiving Parkinson and other medication, on 01/17 patient wanted to have reevaluation for swallow as he wish to be able to eat, discussed with ST patient has failed, 2 MBS and try one more time MBS, will continue to monitor and further recommendation to follow. (2) Adynamic ileus: Code(s): K56.0 - Paralytic ileus Status: Resolved Assessment and Plan: See above (3) Hypokalemia: Code(s): E87.6 - Hypokalemia Status: Resolved Assessment and Plan: potassium is 4.1 today replace potassium as indicated Start KCL at 100ml/hr to help with maintenance Continue to trend labs Potassium is 4.3 today. Resolved. (4) Parkinsons disease: Code(s): G20 - Parkinson's disease Status: Chronic Assessment and Plan: Currently NPO Restart medication as indicated Pt. has been unable to take his Parkinson's meds as he is NPO. He will
[2022-01-19 16:31] LABS: EDCOVIDSCREEN Negative (Negative)
== END 2022-01-19 18:00 | DRG 329 ==
LOC: ANHED 21:15 → ANH3MEDSUR 22:25
PROVIDERS: Internal Medicine Gastroenterology; Nurse Practitioner; Nurse Practitioner Adult Health; Nurse Practitioner Family; Surgery; Admitting Provider Internal Medicine; Emergency Provider Emergency Medicine; PCP Family Medicine; Visit Provider Family Medicine
PROC: 0DB80ZZ Excision of Small Intestine, Open Approach (ICD-10-PCS; CPT 49000; principal; 2021-12-30 17:00)
PROC: 0DH63UZ Insertion of Feeding Device into Stomach, Percutaneous Approach (ICD-10-PCS; CPT 43246; principal; 2022-01-14 11:30)
DX: K56.52 Intestinal adhesions [bands] with complete obstruction (principal); K55.029 Acute infarction of small intestine, extent unspecified; E46 Unspecified protein-calorie malnutrition; R82.71 Bacteriuria; Z20.822 Contact with and (suspected) exposure to COVID-19; G20 Parkinson's disease; I12.9 Hypertensive chronic kidney disease with stage 1 through stage 4 chronic kidney disease, or unspecified chronic kidney disease; N18.31 Chronic kidney disease, stage 3a; C61 Malignant neoplasm of prostate; K56.0 Paralytic ileus; E87.6 Hypokalemia; R13.10 Dysphagia, unspecified; E78.5 Hyperlipidemia, unspecified; D72.829 Elevated white blood cell count, unspecified; Z68.25 Body mass index [BMI] 25.0-25.9, adult; Z87.891 Personal history of nicotine dependence; Z79.82 Long term (current) use of aspirin
CPT/HCPCS: 36415; 36569; 43246; 71045; 74018; 74176; 74177; 74250; 80048; 80053; 81001; 82948; 83605; 83690; 83735; 84100; 84132; 84466; 84478; 85025; 85027; 85610; 85730; 87040; 87086; 87088; 87426; 88307; 92611; 96361; 96374; 96375; 97110; 97116; 97162; 97164; 97165; 97168; 97530; 97535; 99285; A9270; C1751; C9113; C9803; J0330; J0360; J0690; J0696; J1170; J1650; J1741; J2270; J2405; J2704; J3010; J3480; J7030; J7040; J7120; Q9967

== ENCOUNTER 2022-03-17 12:49 | Outpatient (CLI) | payer MEDICARE, SELFPAY ==
--- NOTE | ~2022-03-17 | XR_ITS ---
MODIFIED ESOPHAGRAM HISTORY: Dysphagia. TECHNIQUE: Modified barium esophagram was performed on 03/17/2022. I administered fluoroscopy and perf ormed the exam with speech pathologist. Patient was seated for lateral fluoroscopic imaging for zina stion of thin liquids, pudding, solids and quantified amounts, followed by thin liquids in uncontroll ed amounts. This was recorded on tape. A single fluoroscopic spot image was also recorded. The DAP fo r this procedure was 3.302 Gycm2. The amount of fluoroscopy time used during this procedure was 5.2 m inutes. FINDINGS: Oral stage: Delayed oral transit. Pharyngeal stage: Small amount of residue in the piriform sinuses and small to moderate amount of raina lecular residue. Cervical/esophageal stage: Adequate function. IMPRESSION: Delayed oral transit and mild pharyngeal dysphagia with residue in the vallecula and to l linda degree piriform sinus. No laryngeal penetration or aspiration. Please correlate with speech pa thologist findings and specific feeding recommendations. Reviewed, dictated and finalized at location A. [facility] IMPRESSION: Delayed oral transit and mild pharyngeal dysphagia with residue in the vallecula and to lesser degree piriform sinus. No laryngeal penetration or aspiration. Please correlate with speech pathologist findings and specific fee ding recommendations.
--- NOTE | 2022-03-17 16:30 | REHSTMBS ---
Assessment and note entered by Noemy Palm, ADVERTISING MATERIAL DISTRIBUTOR Modified Barium Swallow Evaluation Diagnosis Dysphagia Feeding Type Recommended Oral Food Consistency Soft and Bite Size, Level Liquid Consistency Thin (0) Treatment Recommendations Effortful Swallow,Laryngeal Elevation Exerc, Jo Ann Maneuver,Tongue Base Exercise,Vocal Fold Adduction Exer ST Clinical Summary MODIFIED BARIUM SWALLOW STUDY (MBSS) This patient was seen for a follow-up Modified Barium Swallow study at the request of his physician. Patient reports he has a history of Parkinson's disease but initially denied difficulty swallowing; he then referred to his g- tube but still did not admit difficulty swallowing until therapist asked him about swallowing pills. Patient then stated that the pills sit on his tongue and eventually he is able to elicit swallows. He stated he is eating a little bit at every meal. He did not discuss what liquids he prefers to drink and did not report any difficulty swallowing liquids. Patient reported, when asked, that he was being seen by a speech pathologist at home, which he stated was in [place]; he did not report if he was still in a facility or truly in his own home. Additionally, he was brought to the hospital by a friend, and not a family member and therefore it was difficult to learn new information or corroborate the information he provided. Patient has a history of dysphagia; previous results above. Today the patient was presented with graduated amounts of thin liquid contrast medium per spoon and then cup, pudding mixed with semi-solid contrast medium, then cracker and fruit both coateed with semi-solid contrast medium. Patient exhibited significantly delayed oral transit time for all consistencies as material sat on the back of the tongue, allowing a small amount of material to spill over into the pharynx prior to eliciting the swallow however no penetration/aspiration was noted throughout this evaluation. He was noted to have mild pyriform
== END 2022-03-17 12:50 | disposition home or self-care (01) ==
LOC: ANHIMG 12:51
PROVIDERS: PCP Family Medicine; Visit Provider Family Medicine
DX: R13.10 Dysphagia, unspecified (principal)
CPT/HCPCS: 92611

== ENCOUNTER 2022-11-06 14:32 | Emergency (ER) | payer MEDICARE, SELFPAY ==
--- NOTE | ~2022-11-06 | CT_ITS ---
Non-contrast CT scan of the Abdomen and Pelvis Clinical indication: Abdominal pain Technique: 2.5 mm axial scans were obtained through the abdomen and pelvis without intravenous or or al contrast. Dose reduction technique was used on this scan by utilizing automated exposure control a nd iterative reconstruction technique. The dose-length product (DLP) was 519.62 mGy-cm. COMPARISON: 01/04/2022 Findings: Images through the lung bases reveal no abnormalities. Punctate nonobstructing left renal stone present. No right renal stone. No ureteral stone or hydronep hrosis on either side. Hepatic cysts are present. The spleen, pancreas, gallbladder, and adrenals appear normal. There is n o aortic aneurysm. There is prominent stool at the rectum, with additional moderate stool in the distal large bowel. No jacqueline bowel obstruction. No abscess or free air. Images through the pelvis were performed. There is no evidence of ascites or lymphadenopathy. Urinary bladder unremarkable. Stable small low-attenuation mass or region in the uterus. Bilateral L5 pars i nterarticularis defects are present, with 1 cm anterolisthesis of L5 over S1. Impression: Findings suggestive of fecal impaction/constipation. Punctate nonobstructing left renal stone. Bilateral L5 pars interarticularis defects. Reviewed, dictated and finalized at [facility]. Impression: Findings suggestive of fecal impaction/constipation. Punctate nonobstructing left renal stone. Bilateral L5 pars interarticularis defects.
[2022-11-06 14:53] VITALS: BP 151/82; PULSE 65; RESP 20; TEMP 36.3; O2SAT 100
[2022-11-06 15:08] LABS: Basophils Percent Auto 0.4 % (0.2-1.2); Eosinophils Absolute Auto 0.1 K/mm3 (0-0.3); Eosinophils Percent Auto 0.8 % (0-4.4); Hematocrit 41.2 % (42.0-52.0); Hemoglobin 13.2 g/dL (14.0-18.0); Immature Granulocyte Absolute 0.05 K/mm3 (0.00-0.031); Immature Granulocyte Percent A 0.5 % (0-0.5); Lymphocytes Absolute Auto 1.06 K/mm3 (0.9-3.2); Mean Corpuscular Hemoglobin 31.2 pg (26-34); Mean Corpuscular Volume 97.4 fl (80-100); Mean Platelet Volume 10.3 fl (7.4-10.4); Monocytes Absolute Auto 0.6 K/mm3 (0.1-0.6); Monocytes Percent Auto 6.2 % (2.6-8.5); Neutrophils Absolute Auto 7.8 K/mm3 (1.3-6.7); Neutrophils Percent Auto 81.1 % (45.5-73.1); Platelet Count Result 222 k/mm3 (150-375); Red Blood Count 4.23 M/mm3 (4.6-6.20); White Blood Count 9.7 K/mm3 (4.5-10.0)
[2022-11-06 15:18] LABS: Alanine Aminotransferase 35 U/L (6-50); Albumin Level 4.4 g/dL (3.5-5.1); Alkaline Phosphatase 69 U/L (38-126); Anion Gap 9 mmol/L (8-16); Aspartate Amino Transferase 47 U/L (17-59); Bilirubin,Total 0.6 mg/dL (0.2-1.3); Blood Urea Nitrogen 32 mg/dL (9-20); Carbon Dioxide 27 mmol/L (22-30); Chloride 102 mmol/L (98-107); Estimated CRCL calculation 30 ml/min; Estimated Glomerular Filt Rate 42; Glucose 112 mg/dL (65-110); Lipase 138 U/L (23-300); Potassium 4.5 mmol/L (3.4-5.0); Sodium 138 mmol/L (137-145)
[2022-11-06 15:43] VITALS: BP 155/70; PULSE 65; RESP 18; O2SAT 98
--- NOTE | 2022-11-06 15:47 | ED.ABDPAIN ---
HPI - Abdominal Pain General Chief Complaint: Abdominal Pain Stated Complaint: CONSTIPATION, (EMESIS ON ARRIVAL TO ED0 Time Seen by Provider: 11/06/22 15:37 History of Present Illness HPI narrative: Patient is an 82 year old male with history of parkinsons, prior bowel obstruction here with abdominal pain. Patient notes that his last bowel movement was about 3 days ago, normal in consistency. He now notes that he has had no bowel movements since. Today he began having worsening abdominal pain, diffuse in nature. He has been nauseous since arrival to the ED, vomiting once on arrival. he denies passing any flatulence. He notes that it does feel somewhat similar to his last bowel obstruction. He denies any fever chills. Denies any cough or congestion. Of note he is currently on antibiotics for a UTI, is midway through 10 day course. Family and patient are unsure of which medication he is on. He lives largely independently with home health nursing and family help. No recent falls. Related Data Home Medications Medication Instructions Recorded Confirmed aspirin 81 mg tablet,delayed 81 mg PO DAILY 04/19/19 03/26/22 release docusate sodium 100 mg capsule 100 mg PO DAILY PRN 04/26/22 (Colace) Allergies Allergy/AdvReac Type Severity Reaction Status Date / Time No Known Allergies Allergy Verified 11/06/22 15:44 Review of Systems Review of Systems: CONSTITUTIONAL: Denies fever, chills, or sweats. EYES: Denies visual changes, redness, or discharge. ENT: Denies rhinorrhea, congestion, sore throat, or otalgia. CARDIOVASCULAR: Denies chest pain, palpitations, or edema. RESPIRATORY: Denies cough or dyspnea. GASTROINTESTINAL: abdominal pain, nausea, vomiting, constipation. no diarrhea. GENITOURINARY: Denies dysuria or hematuria. SKIN: Denies rash or itching. MUSCULOSKELETAL: Denies back pain, joint pain, or myalgia. NEUROLOGIC: Denies headache, numbness, or weakness. PSYCHIATRIC: Denies anxiety or depression. [facility] Past Medical History Medical History BPH (benign prostatic hyperplasia) CKD (chronic kidney disease) stage 3 Hyperlipidemia Hypertension Overweight (BMI 25.0-29.9) Parkinsons disease Prostate CA Surgical History Surgical History History of transurethral resection of prostate Family History Family History Father Family history of cardiovascular disease Family history of elevated blood lipids Diabetes mellitus Suicide Mother Family history of malignant neoplasm of breast in first degree relative Other Hypertension Social History Social History (Updated 08/06/22 @ 15:25 by Gill Rosa MA) Smoking packs per day: 3 Smoking cigarettes per day: 60.0 Years smoked: 11 Smoking pack-years: 33.00 Smoking status: Former smoker Tobacco type: cigars Second hand tobacco smoke exposure: No Alcohol intake: former Drinks per week: 2 Alcohol use details: rare use Substance use: former Substance use type: does not use Lack of Transportation: YES Lack of Food: Sometimes True Current Housing: I Have Housing Concerned About Future Housing: No Difficulty Paying Gas/Electric Bills: No Difficulty Paying for Meds: No Currently Unemployed: No Education: High School Diploma/GED Difficulty w/ Childcare or Family Care: No Living arrangements: alone Additional living arrangements comments: son visits often; neighbor Torrey checks on him; patient has life alert Gender identity (if verbalized by the patient): Male Sexual Orientation (if Verbalized by the Patient): Straight or Heterosexual Spiritual care concerns: No Exam Narrative: GENERAL: Well-appearing, well-nourished, and in no acute distress. HEAD: Normocephalic, atraumatic. EYES: PERRLA and EOMI. ENT: Nares clear. Mucous membran
[2022-11-06] MEDS: ONDANSETRON INJ 4 MG/2 ML VIAL IV PUSH (16:03)
[2022-11-06 16:50] LABS: Lactic Acid Reflex 2.1 mmol/L (0.7-2.0)
[2022-11-06 17:34] LABS: Appearance Urine Clear (Clear); Bacteria Urine None Seen /hpf; Bilirubin Urine Negative (Negative); Color Urine Yellow (Yellow); Glucose Urine UA Negative (Negative); Ketones Urine Trace mg/dL (Negative); Leukocyte Esterase Ur Negative LEU/UL (Negative); Need Manual Microscopic Reviewed; Nitrate Urine Negative (Negative); Protein Urine 1+ mg/dL (Negative); Specific Grav Ur 1.022 (1.001-1.035); Squamous Epithelial Cell Urine None seen /hpf (Few); Urobilinogen Urine 0.2 mg/dL (<2.0); WBC Urine 0-5 /hpf
[2022-11-06 18:10] LABS: Add Urine Microscopic? YES
[2022-11-06] MEDS: SODIUM CHLORIDE 0.9% IV 1,000 ML 999 ML IV CONT (18:25)
[2022-11-06 19:21] VITALS: BP 169/91; PULSE 89; RESP 20; O2SAT 98
[2022-11-06 19:37] LABS: Reflex Lactic Acid Yes or No Add Lactic
--- NOTE | 2022-11-06 19:44 | PC.NURSE ---
Soap suds enema done before this RN took over care of pt. Pt did have large bowel movement at this time.
[2022-11-06 20:14] LABS: Lactic Acid 1.5 mmol/L (0.7-2.0)
== END 2022-11-06 20:21 | disposition home or self-care (01) ==
PROVIDERS: Emergency Medicine; Emergency Provider Student in an Organized Health Care Education/Training Program; PCP Internal Medicine
DX: K59.00 Constipation, unspecified (principal); N17.9 Acute kidney failure, unspecified; G20 Parkinson's disease; I12.9 Hypertensive chronic kidney disease with stage 1 through stage 4 chronic kidney disease, or unspecified chronic kidney disease; N18.30 Chronic kidney disease, stage 3 unspecified; E78.5 Hyperlipidemia, unspecified; E66.3 Overweight; N40.0 Benign prostatic hyperplasia without lower urinary tract symptoms; Z68.29 Body mass index [BMI] 29.0-29.9, adult; Z85.46 Personal history of malignant neoplasm of prostate; Z87.891 Personal history of nicotine dependence; Z90.79 Acquired absence of other genital organ(s); N20.0 Calculus of kidney
CPT/HCPCS: 36415; 74176; 80053; 81001; 83605; 83690; 85025; 96361; 96374; 99284; J2405; J7030

== ENCOUNTER 2023-01-21 13:31 | Outpatient (CLI) | payer MEDICARE, SELFPAY ==
--- NOTE | ~2023-01-21 | PE_ITS ---
EXAMINATION: PET_PETPSMAST_PT DATE: 01/21/2023 15:54 INDICATION: Prostate cancer TECHNIQUE: 7.796 mCi of pipflufolastat F-18 (18-F-DCFPyL) was administered i.v. Low dose computed to mography (CT) images were acquired from the base of the brain to the base of the brain to the proxima l thighs for attenuation correction and anatomic localization. Positron emission tomography (PET) lazaro ges were acquired in the same distribution beginning 85 minutes after injection. Images including fus ed PET/CT images were reconstructed in axial, coronal, and sagittal planes. Automated exposure contro l technique was employed. The dose-length product was 596.69mGy-cm. COMPARISON: CT abdomen pelvis dated 12/06/2022 and 12/29/21 FINDINGS: Head/neck: Typical pattern of symmetric physiologic increased activity in the lacrimal, parotid and submandibula r glands as well as along the mucosa of the nasal and oral cavities, the quinn-, naso- and hypopharynx, the glottis and esophagus. There is also a typical pattern of symmetric tiny foci of mild likely phy siologic neural ganglia uptake at a few bilateral cervical neural foramina. No pathologically enlarge d cervical lymphadenopathy or suspicious foci of increased uptake in the visualized head or neck. Chest: Couple small calcified right upper lobe nodules and calcified right hilar and mediastinal lymph nodes consistent with old granulomatous disease. Small pneumatocele at the left lower lobe. No suspicious pulmonary nodules, pneumonia, pulmonary edema or pleural effusion. Mild cardiomegaly. Atherosclerotic coronary artery calcification. No pericardial effusion. Thoracic aorta is normal in caliber. No path ologically enlarged or PSMA avid thoracic lymphadenopathy. Abdomen/pelvis/proximal thighs: Prostatomegaly with diffuse increased PSMA uptake throughout the majority of the enlarged prostate re latively sparing a small region at the anterior right prostate. The greatest uptake is seen at the ri ght posterior inferior aspect of the prostate with maximal SUV of 32.8 and stress with primary prosta te cancer. The increased uptake extends into the thickened right seminal vesicle where there is also maximal uptake of 58.4. Physiologic renal accumulation and excretion of activity in the kidneys, blad mauricio and along portions of ureters. Normal degree and slightly heterogenous pattern of increased uptak e throughout the liver and spleen without radiologic correlate or dominant PSMA avid lesion. There ar e few small low-attenuation hepatic cysts which are without significant change since CT from one year prior The gallbladder, pancreas and bilateral adrenal glands are normal. Moderate uptake scattered t hroughout the bowels with typical duodenal and proximal jejunal predominance and without radiologic c orrelate, also likely physiologic. Moderate diverticulosis along the descending and sigmoid colon wit hout adjacent from trace stranding to suggest diverticulitis. No other abnormal foci of increased upt aftab or pathologically enlarged lymphadenopathy in the abdomen, pelvis or proximal thighs. Musculoskeletal: 8 mm sclerotic lesion at the left sacroiliac the level of S4 with associated mild increased uptake wi th maximal SUV of 5.3. There are couple additional small foci of mild uptake without evident radiolog ic correlate at the contralateral right sacral ala at the level of S4 with maximal SUV of 3.8 and at S5 with maximal SUV of 3.0 also suspicious for metastatic disease. 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 Small region of extravasated activity a t the site of injection at the right antecubital fossa. No other suspicious foci of abnormal bone upt aftab. IMPRESSION: 1. Increased uptake throughout the enlarged prostate and extending to the enlarged right seminal vesi vanessa consistent with primary prostate cancer. 2. Three foci of mild uptake at the sacrum, the
== END 2023-01-21 13:32 | disposition home or self-care (01) ==
PROVIDERS: PCP Internal Medicine; Visit Provider Urology
DX: C61 Malignant neoplasm of prostate (principal)
CPT/HCPCS: 78815; A9595

== ENCOUNTER 2023-04-25 08:21 | Emergency (ER) | payer MEDICARE, SELFPAY ==
[2023-04-25] VITALS (23 sets, daily range): BP systolic 135–214; BP diastolic 75–109; PULSE 51–75; RESP 16–21; TEMP 36.6–36.7; O2SAT 97–100
--- NOTE | ~2023-04-25 | XR_ITS ---
EXAMINATION: XR chest 2V DATE: 04/25/2023 08:59 INDICATION: Increased weakness TECHNIQUE: AP and lateral views of the chest are obtained. COMPARISON: 01/08/2022 FINDINGS: The lungs are free of acute opacities. No pleural effusion or pneumothorax. The cardiomedia stinal silhouette is normal. There are bridging osteophytes at multiple levels in the spine, consiste nt with diffuse idiopathic skeletal hyperostosis (DISH). IMPRESSION: 1. No acute cardiopulmonary abnormality. Reviewed, dictated and finalized at location [facility] [employer]
--- NOTE | ~2023-04-25 | CT_ITS ---
EXAMINATION: CT brain wo con DATE: 04/25/2023 11:31 INDICATION: Confusion post fall TECHNIQUE: Computed tomography (CT) of the head was performed without intravenous contrast. Sagittal and coronal reconstructions were performed. The mA was adjusted according to patient size. Iterative reconstruction technique was employed. The dose-length product was 908.00 mGy-cm. COMPARISON: head CT dated 06/06/2021 FINDINGS: No acute intracranial hemorrhage, acute infarction or abnormal extra axial fluid collection. There is mild scattered white matter hypoattenuation consistent with chronic small vessel ischemic disease. S ymmetric prominence of the sulci consistent with mild age-appropriate diffuse cerebral volume loss. V entricles are normal and symmetric. No mass/mass effect. The orbits, paranasal sinuses and mastoid ai r cells are normal. IMPRESSION: 1. No acute intracranial process. 2. Age-related changes including mild diffuse volume loss and mild scattered white matter hypoattenua tion consistent with chronic small vessel ischemic disease. Reviewed, dictated and finalized at location [facility] IMPRESSION: 1. No acute intracranial process. 2. Age-related changes including mild diffuse volume loss and mild scattered wh ite matter hypoattenuation consistent with chronic small vessel ischemic diseas e.
--- NOTE | 2023-04-25 08:29 | ECG_ITS ---
Measurements Intervals [place] Rate: 60 P: 61 MT: 191 QRS: -19 QRSD: 98 T: 0 QT: 433 QTc: 433 Interpretive Statements SINUS RHYTHM BASELINE ARTIFACT NORMAL ECG COMPARED TO ECG 10/14/2020 21:16:30 NO SIGNIFICANT CHANGES Electronically Signed On 04-25-2023 18:25:02 FUNERAL SERVICE APPRENTICE by Rich Ibanez M.D.
[2023-04-25 08:47] LABS: Basophils Absolute Auto 0.1 K/mm3 (0.0-0.1); Basophils Percent Auto 0.8 % (0.2-1.2); Eosinophils Absolute Auto 0.1 K/mm3 (0-0.3); Eosinophils Percent Auto 1.1 % (0-4.4); Hematocrit 39.4 % (42.0-52.0); Hemoglobin 12.7 g/dL (14.0-18.0); Immature Granulocyte Absolute 0.03 K/mm3 (0.00-0.031); Immature Granulocyte Percent A 0.3 % (0-0.5); Lymphocytes Absolute Auto 1.69 K/mm3 (0.9-3.2); Mean Corpuscular HGB Conc 32.2 g/dl (32-36); Mean Corpuscular Volume 96.1 fl (80-100); Mean Platelet Volume 10.4 fl (7.4-10.4); Monocytes Absolute Auto 1.2 K/mm3 (0.1-0.6); Neutrophils Absolute Auto 5.8 K/mm3 (1.3-6.7); Neutrophils Percent Auto 65.8 % (45.5-73.1); Platelet Count Result 201 k/mm3 (150-375); Red Cell Distribution Width 13.1 % (11.5-14.5); White Blood Count 8.9 K/mm3 (4.5-10.0)
[2023-04-25 09:00] LABS: Alanine Aminotransferase 22 U/L (6-50); Albumin Level 4.3 g/dL (3.5-5.1); Alkaline Phosphatase 74 U/L (38-126); Anion Gap 6 mmol/L (8-16); Aspartate Amino Transferase 234 U/L (17-59); Bilirubin,Total 0.9 mg/dL (0.2-1.3); Blood Urea Nitrogen 33 mg/dL (9-20); Calcium 9.5 mg/dL (8.4-10.2); Carbon Dioxide 29 mmol/L (22-30); Chloride 104 mmol/L (98-107); Estimated CRCL calculation 42 ml/min; Estimated Glomerular Filt Rate > 60; Glucose 101 mg/dL (65-110); Potassium 3.6 mmol/L (3.4-5.0); Sodium 139 mmol/L (137-145)
[2023-04-25 10:29] LABS: Appearance Urine Clear (Clear); Bacteria Urine None Seen /hpf; Bilirubin Urine Negative (Negative); Blood Urine 2+ (Negative); Color Urine Yellow (Yellow); Glucose Urine UA Negative (Negative); Ketones Urine 1+ mg/dL (Negative); Leukocyte Esterase Ur Negative LEU/UL (Negative); Nitrate Urine Negative (Negative); Non Pathogenic Casts 0-2; Protein Urine 1+ mg/dL (Negative); RBC Urine 0-2 /hpf (0-2); Specific Grav Ur 1.021 (1.001-1.035); Squamous Epithelial Cell Urine None seen /hpf (Few); WBC Urine 0-5 /hpf; pH Urine 6.5 (5.0-9.0)
[2023-04-25 10:35] LABS: Add Urine Microscopic? YES
[2023-04-25] MEDS: SODIUM CHLORIDE 0.9% IV 1,000 ML 999 ML IV CONT (11:20)
--- NOTE | 2023-04-25 13:00 | ED.GENADULT ---
HPI - General Adult General Chief complaint: Weakness Stated complaint: weakness Time Seen by Provider: 04/25/23 08:24 History of Present Illness HPI narrative: Patient is an 83-year-old male who presents ER with concerns for weakness with his son. Patient has history of dementia. He lives at home by himself and is able to transfer on his own from his bed to his chair or wheelchair. He occasionally drives. No recent known illness but he is been weaker and more forgetful and family is concerned he may have a urinary tract infection. No reports of increasing episodes of incontinence or bowel ordered urine. Patient is without complaint at this time and is orient x3. Related Data Home Medications Medication Instructions Recorded Confirmed aspirin 81 mg tablet,delayed 81 mg PO DAILY 04/19/19 03/26/22 release docusate sodium 100 mg capsule 100 mg PO DAILY PRN 04/26/22 (Colace) Allergies Allergy/AdvReac Type Severity Reaction Status Date / Time No Known Allergies Allergy Verified 11/06/22 15:44 Review of Systems Review of Systems: All systems reviewed & are unremarkable except as noted in HPI and below Constitutional: Constitutional: Reports fatigue and Reports weakness ENT: Reports system reviewed and no additional complaints, except as documented Cardiovascular: Cardiovascular: Reports no additional cardiovascular complaints Respiratory: Respiratory: Reports no additional respiratory complaints Gastrointestinal: Gastrointestinal: Reports no additional gastrointestinal complaints Genitourinary: Genitourinary: Reports no additional male genitourinary complaints PENDING SALE TO [facility] Past Medical History Medical History BPH (benign prostatic hyperplasia) CKD (chronic kidney disease) stage 3 Hyperlipidemia Hypertension Overweight (BMI 25.0-29.9) Parkinsons disease Prostate CA Surgical History Surgical History History of transurethral resection of prostate Family History Family History Father Family history of cardiovascular disease Family history of elevated blood lipids Diabetes mellitus Suicide Mother Family history of malignant neoplasm of breast in first degree relative Other Hypertension Social History Social History (Updated 08/06/22 @ 15:25 by Gill Rosa MA) Smoking packs per day: 3 Smoking cigarettes per day: 60.0 Years smoked: 11 Smoking pack-years: 33.00 Smoking status: Former smoker Tobacco type: cigars Second hand tobacco smoke exposure: No Alcohol intake: former Drinks per week: 2 Alcohol use details: rare use Substance use: former Substance use type: does not use Lack of Transportation: YES Lack of Food: Sometimes True Current Housing: I Have Housing Concerned About Future Housing: No Difficulty Paying Gas/Electric Bills: No Difficulty Paying for Meds: No Currently Unemployed: No Education: High School Diploma/GED Difficulty w/ Childcare or Family Care: No Living arrangements: alone Additional living arrangements comments: son visits often; neighbor Torrey checks on him; patient has life alert Gender identity (if verbalized by the patient): Male Sexual Orientation (if Verbalized by the Patient): Straight or Heterosexual Spiritual care concerns: No Exam Narrative: GENERAL: Chronically ill-appearing, well-nourished, and in no acute distress. HEAD: Normocephalic, atraumatic. ENT: Mucous membranes moist. NECK: Supple. CHEST: Clear to auscultation. No respiratory distress. HEART: Regular rate and rhythm. Normal peripheral pulses. ABDOMEN: Soft, nontender, nondistended. EXTREMITIES: Normal range of motion. No edema. SKIN: Warm, dry, no rash. NEURO: Alert and oriented x3. PSYCH: Normal mood and affect. Course Course Emergency Course: Patient
--- NOTE | 2023-04-25 17:14 | PCCCNOTE ---
CC was called to the ED for assistance with home services for this pt. Pt son, Jc Goins ([phone]), is his POA. He was at the bedside, we discussed home healthcare. They were given a list of covered agencies from his insurance, they chose [facility]. Pt PCP is Dr. Bird Jasmine, he is agreeable to follow pt while on home health and the orders needed. A referral was sent to [facility], awaiting his acceptance. I spoke with his son, Jc this evening and let him know he should be hearing from them in the next couple of days, or call them if not.
== END 2023-04-25 14:20 | disposition home or self-care (01) ==
PROVIDERS: Emergency Provider Emergency Medicine; PCP Internal Medicine
DX: R53.1 Weakness (principal); G20.A1 Parkinson's disease without dyskinesia, without mention of fluctuations; F03.90 Unspecified dementia, unspecified severity, without behavioral disturbance, psychotic disturbance, mood disturbance, and anxiety; I12.9 Hypertensive chronic kidney disease with stage 1 through stage 4 chronic kidney disease, or unspecified chronic kidney disease; N18.30 Chronic kidney disease, stage 3 unspecified; E78.5 Hyperlipidemia, unspecified; E66.3 Overweight; Z68.29 Body mass index [BMI] 29.0-29.9, adult; N40.0 Benign prostatic hyperplasia without lower urinary tract symptoms; Z85.46 Personal history of malignant neoplasm of prostate; Z87.891 Personal history of nicotine dependence; Z90.79 Acquired absence of other genital organ(s); Z79.82 Long term (current) use of aspirin
CPT/HCPCS: 36415; 70450; 71046; 80053; 81001; 85025; 93005; 96360; 99284; J7030

== ENCOUNTER 2023-04-27 13:52 | Inpatient (IN) | payer MEDICARE, SELFPAY ==
[2023-04-27] VITALS (28 sets, daily range): BP systolic 103–170; BP diastolic 64–100; PULSE 48–85; RESP 14–20; TEMP 35.8–36.8; O2SAT 97–100; BMI 27.3
--- NOTE | ~2023-04-27 | XR_ITS ---
MODIFIED ESOPHAGRAM HISTORY: Absence disease with history of dysphagia TECHNIQUE: Modified barium esophagram was performed on 04/28/2023. I administered fluoroscopy and perf ormed the exam with speech pathologist. Patient was seated for lateral fluoroscopic imaging for zina stion of thin liquids, pudding, solids and quantified amounts, followed by thin liquids in uncontroll ed amounts. This was recorded on tape. A single fluoroscopic spot image was also recorded. The DAP fo r this procedure was 4.838 Gycm2. The amount of fluoroscopy time used during this procedure was 6.1 m inutes. FINDINGS: Oral stage: There was very delayed initiation of the swallow. Pharyngeal stage: There is reduced laryngeal elevation and tongue base retraction. There is moderate amount of vallecular residue. There was laryngeal penetration with thin liquids of both small and lar ge amounts of contrast. This expected to result in likely aspiration although no aspiration was obser citlaly during the study. Cervical/esophageal stage: Adequate function. IMPRESSION: Residual dysphagia with laryngeal penetration which is expected to result in likely aspir ation although no aspiration was observed during the study. Please correlate with speech pathologist findings and specific feeding recommendations. Reviewed, dictated and finalized at location A. ETING UNDERWRITER IMPRESSION: Residual dysphagia with laryngeal penetration which is expected to result in likely aspiration although no aspiration was observed during the stud y. Please correlate with speech pathologist findings and specific feeding yvonne mmendations.
--- NOTE | ~2023-04-27 | US_ITS ---
EXAMINATION: US carotid duplex BI DATE: 04/28/2023 10:48 INDICATION: Syncope. Cerebral atherosclerosis. TECHNIQUE: Grayscale, color Doppler, and pulsed Doppler images of the cervical carotid arteries were obtained. The degree of vessel stenosis is placed in one of the following categories: normal, <50%, 5 0-69%, >=70% but less than near-occlusion, near-occlusion, or total occlusion. Note that percent sten osis relative to normal distal artery lumen diameter is indirectly measured from velocity measurement s as described by Joesph, et al. Radiology 2003; [id number]. COMPARISON: None. FINDINGS: RIGHT: The right common carotid artery (CCA) peak systolic velocity (PSV) is 98 cm/s. The right internal car otid artery (ICA) PSV is 91 cm/s. The right ICA end-diastolic velocity (EDV) is 25 cm/s. The right IC A/CCA PSV ratio is 0.9. Grayscale and color Doppler images yield an estimate of <50% diameter reducti on from plaque in the ICA. The external carotid artery (ECA) PSV is 82 cm/s. There is antegrade flow in the right vertebral artery. LEFT: The left CCA PSV is 119 cm/s. The left ICA PSV is 119 cm/s. The left ICA EDV is 20 cm/s. The left ICA /CCA PSV ratio is 1.0. Grayscale and color Doppler images yield an estimate of <50% diameter reductio n from plaque in the ICA. The ECA PSV is 85 cm/s. There is antegrade flow in the left vertebral arter y. IMPRESSION: 1. <50% stenosis in the right internal carotid artery. 2. <50% stenosis in the left internal carotid artery. Reviewed, dictated and finalized at location A. ORY TUTOR
--- NOTE | ~2023-04-27 | US_ITS ---
Renal-Bladder ultrasound Clinical History: Hematuria Technique: Real-time sonographic imaging of the kidneys and urinary bladder was performed. Findings: The right kidney measures 10.3 cm in length and the left kidney measures 10.7 cm. There is no hydronephrosis or renal calculus identified. Renal cortical echogenicity is within normal limits. No renal mass lesion is identified. The urinary bladder is moderately distended at the time of this exam. No intraluminal echoes are iden tified. No abnormal wall thickening is seen. Impression: Unremarkable ultrasound of the kidneys and urinary bladder. Reviewed, dictated and finalized at location . TER TENDER Impression: Unremarkable ultrasound of the kidneys and urinary bladder.
--- NOTE | ~2023-04-27 | XR_ITS ---
EXAMINATION: XR chest 1V INDICATION: Transient alteration of awareness TECHNIQUE: AP view of the chest is obtained. COMPARISON: 04/25/2023 FINDINGS: The lungs are free of acute opacities. No pleural effusion or pneumothorax. The cardiomedia stinal silhouette is normal. IMPRESSION: 1. No acute cardiopulmonary abnormality. Reviewed, dictated and finalized at location B. R ASSEMBLY SUPERVISOR
--- NOTE | ~2023-04-27 | CT_ITS ---
EXAMINATION: CT brain wo con INDICATION: Transient alteration of awareness COMPARISON: 04/25/2023 TECHNIQUE: Standard unenhanced head CT. The dose-length product (DLP) was 756.67 mGy-cm. The mA was a djusted according to patient size. Iterative reconstruction technique was employed. FINDINGS: No acute intraparenchymal hemorrhage. No evidence of mass lesion. No evidence of acute infa rction. There is mild periventricular and subcortical hypodensity probably related to small vessel is chemic disease. There is mild prominence of the sulci and ventricles related to cerebral atrophy. Int racranial calcified cerebral atherosclerosis is noted. No extra-axial collections. No mass effect or midline shift. The orbits and soft tissues are unremarkable. The visualized sinuses and mastoid air c ells are well aerated. IMPRESSION: 1. No acute intracranial abnormality. 2. Age related findings. Reviewed, dictated and finalized at location B. OR CONTROLS ANALYST
--- NOTE | 2023-04-27 13:57 | ECG_ITS ---
Measurements Intervals [place] Rate: 55 P: 8 LA: 157 QRS: 1 QRSD: 104 T: 36 QT: 465 QTc: 448 Interpretive Statements SINUS BRADYCARDIA NORMAL ECG COMPARED TO ECG 04/25/2023 08:34:21 SINUS BRADYCARDIA NOW PRESENT Electronically Signed On 04-27-2023 16:30:46 FIELD PARTY MANAGER by Rich Ibanez M.D.
[2023-04-27 14:24] LABS: Basophils Percent Auto 0.5 % (0.2-1.2); Eosinophils Absolute Auto 0.1 K/mm3 (0-0.3); Eosinophils Percent Auto 0.6 % (0-4.4); Hematocrit 34.1 % (42.0-52.0); Hemoglobin 11.3 g/dL (14.0-18.0); Immature Granulocyte Absolute 0.03 K/mm3 (0.00-0.031); Immature Granulocyte Percent A 0.3 % (0-0.5); Lymphocytes Absolute Auto 1.11 K/mm3 (0.9-3.2); Lymphocytes Percent Auto 12.7 % (18.3-44.2); Mean Corpuscular HGB Conc 33.1 g/dl (32-36); Mean Corpuscular Hemoglobin 31.5 pg (26-34); Mean Platelet Volume 10.1 fl (7.4-10.4); Monocytes Absolute Auto 0.8 K/mm3 (0.1-0.6); Monocytes Percent Auto 9.5 % (2.6-8.5); Neutrophils Absolute Auto 6.7 K/mm3 (1.3-6.7); Neutrophils Percent Auto 76.4 % (45.5-73.1); Platelet Count Result 195 k/mm3 (150-375); Red Blood Count 3.59 M/mm3 (4.6-6.20); Red Cell Distribution Width 13.2 % (11.5-14.5); White Blood Count 8.8 K/mm3 (4.5-10.0)
[2023-04-27 14:30] LABS: Appearance Urine Cloudy (Clear); Bacteria Urine 4+ /hpf; Bilirubin Urine Negative (Negative); Blood Urine 2+ (Negative); Color Urine Yellow (Yellow); Glucose Urine UA Negative (Negative); Ketones Urine Trace mg/dL (Negative); Leukocyte Esterase Ur 2+ LEU/UL (Negative); Nitrate Urine Positive (Negative); Non Pathogenic Casts 0-2; Protein Urine 2+ mg/dL (Negative); RBC Urine 21-50 /hpf (0-2); Specific Grav Ur 1.019 (1.001-1.035); Squamous Epithelial Cell Urine None seen /hpf (Few); WBC Urine >100 /hpf
[2023-04-27 14:34] LABS: Add Urine Microscopic? YES
[2023-04-27 14:36] LABS: Prothrombin Time 13.8 Seconds (11.1-14.7)
[2023-04-27 14:37] LABS: Alanine Aminotransferase 16 U/L (6-50); Albumin Level 3.8 g/dL (3.5-5.1); Alkaline Phosphatase 67 U/L (38-126); Anion Gap 2 mmol/L (8-16); Aspartate Amino Transferase 226 U/L (17-59); Bilirubin,Total 1.1 mg/dL (0.2-1.3); Blood Urea Nitrogen 27 mg/dL (9-20); Carbon Dioxide 31 mmol/L (22-30); Chloride 100 mmol/L (98-107); Estimated CRCL calculation 44 ml/min; Estimated Glomerular Filt Rate > 60; Glucose 96 mg/dL (65-110); Potassium 3.1 mmol/L (3.4-5.0); Sodium 133 mmol/L (137-145)
--- NOTE | 2023-04-27 14:38 | ED.GENADULT ---
HPI - General Adult General Chief complaint: Altered Mental Status Stated complaint: altered mental status Time Seen by Provider: 04/27/23 13:57 History of Present Illness HPI narrative: Patient is an 83-year-old male who presents ER with syncope. He was going to his PCP for a follow-up visit related to his ER visit 2 days ago. Apparently when he stood up he lost consciousness collapsed to the ground. He is awake alert oriented at this time. He does have Parkinson's exam known dementia. He has old bruising to the right chest wall and right proximal arm. No evidence of trauma to the head. At baseline patient can only stand up to transfer and does not ambulate. Related Data Home Medications Medication Instructions Recorded Confirmed aspirin 81 mg tablet,delayed 81 mg PO DAILY 04/19/19 03/26/22 release docusate sodium 100 mg capsule 100 mg PO DAILY PRN 04/26/22 (Colace) Allergies Allergy/AdvReac Type Severity Reaction Status Date / Time No Known Allergies Allergy Verified 11/06/22 15:44 Review of Systems Review of Systems: ROS unobtainable: Yes unobtainable due to mental status ( Dementia) [facility] Past Medical History Medical History (Updated 04/27/23 @ 18:19 by Yair Moise MD) Benign prostatic hyperplasia Chronic anemia Chronic kidney disease, stage 3 Deep venous thrombosis Gastroesophageal reflux disease Hyperlipidemia Hypertension Overweight (BMI 25.0-29.9) Parkinsons disease Prostate cancer Surgical History Surgical History (Updated 04/27/23 @ 16:10 by Maureen Mendez PA-C) History of colonoscopy with polypectomy History of transurethral resection of prostate Family History Family History Father Family history of cardiovascular disease Family history of elevated blood lipids Diabetes mellitus Suicide Mother Family history of malignant neoplasm of breast in first degree relative Other Hypertension Social History Social History (Updated 04/27/23 @ 16:10 by Maureen Mendez PA-C) Social History: Surrogate medical decision maker: Code status: Smoking packs per day: 3 Smoking cigarettes per day: 60.0 Years smoked: 11 Smoking pack-years: 33.00 Smoking status: Former smoker Tobacco type: cigars Second hand tobacco smoke exposure: No Alcohol intake: former Drinks per week: 2 Alcohol use details: Rare alcohol use. Substance use: never Substance use type: does not use Lack of Transportation: YES Lack of Food: Sometimes True Current Housing: I Have Housing Concerned About Future Housing: No Difficulty Paying Gas/Electric Bills: No Difficulty Paying for Meds: No Currently Unemployed: No Education: High School Diploma/GED Difficulty w/ Childcare or Family Care: No Living arrangements: alone Additional living arrangements comments: son visits often; neighbor Torrey checks on him; patient has life alert Spiritual care concerns: No Exam Narrative: GENERAL: chronically ill-appearing, well-nourished, and in no acute distress. HEAD: Normocephalic, atraumatic. EYES: PERRL and EOMI. ENT: Mucous membranes moist. NECK: Supple. CHEST: Clear to auscultation. No respiratory distress. bruising right pectoralis region. HEART: Bradycardic and regular. Normal peripheral pulses. ABDOMEN: Soft, nontender, nondistended. EXTREMITIES: Normal range of motion. No edema. SKIN: Warm, dry, no rash. Bruising proximal right humerus NEURO: Alert and oriented x3 PSYCH: Normal mood and affect. Course Course Emergency Course: Admit to hospitalist service. Started on IV ceftriaxone for new a UTI. son educated on diagnosis and treatment plan. Vital Signs Vital signs: Vital Signs Temperature 96.5 F L 04/27/23 13:53 Pulse Rate 56 L 04/27/23 13:53 Respiratory Rate 18 04/27/23 13:53 Blood Pressure 125/74 04/27/23 13:53 Pulse Oximetry 100 04/27/23 13
[2023-04-27 14:49] LABS: Troponin I 0.019 ng/mL (0.000-0.034)
--- NOTE | 2023-04-27 16:07 | PM.IMHP ---
H&P: HPI History of Present Illness Date/Time: 04/27/23 16:30 Chief Complaint: Syncope. Narrative: This is an 83-year-old male with Parkinson's disease, dementia, chronic kidney disease, hypertension, hyperlipidemia, prostate cancer, and benign prostatic hyperplasia who presented to the emergency department via EMS from his doctor's office for evaluation after a syncopal episode. The patient provides the following history. He was seen in the ED 2 days ago accompanied by his son for evaluation of weakness and increasing confusion from baseline. His workup was essentially unremarkable and he was able to be discharged home after demonstrating that he was able to transfer from bed to the wheelchair and back to bed again without much assistance. Today he was at his doctor's office for a post ED visit checkup where he had a syncopal episode after standing up. He does not really remember what happened and is my understanding that he was unresponsive for quite some time. Blood pressure was reportedly in the 60s over 40s and EMS was summoned. In the ED: Blood pressures have been well within normal limits since arrival. Pulse has been persistently in the upper 40s to low 50s which looks to be bit lower than his baseline. Labs were significant for WBC count of 8.8, hemoglobin 11.3, sodium 133, potassium 3.1, carbon dioxide 31, BUN 27, creatinine 1.10, AST 226, troponin 0.019. Urine was cloudy with 2+ protein, trace ketones, 2+ blood, positive nitrate, 2+ leukocyte esterase, 21 to 50 RBC, greater than 100 WBC, and 4+ bacteria. Brain CT and chest x-ray showed no acute findings. He was given 1 gm of ceftriaxone is being admitted in this setting for treatment of urinary tract infection closer monitoring given the syncopal episode. At the time my evaluation he is eating dinner and is resting comfortably. He endorses dysuria the last 24 hours but otherwise has no complaints. He denies fever, chills, sweats, cold and flu symptoms, chest pain, shortness a breath, nausea, vomiting, and diarrhea. On exam he has an old, healing bruise over the right chest wall and it sounds as though he has had several falls. In fact last night he had to call EMS for lift assist. He is able to transfer to his chair or electric scooter but is unable to ambulate. Son is worried that he may not be able to stay at home safely by himself and has brought up Assisted Living in the past though the patient has previously declined. Review of Systems Review of Systems: Twelve systems were reviewed and are negative except for as per HPI. [facility] Past Medical History Medical History Benign prostatic hyperplasia Chronic anemia Chronic kidney disease, stage 3 Deep venous thrombosis Gastroesophageal reflux disease Hyperlipidemia Hypertension Overweight (BMI 25.0-29.9) Parkinsons disease Prostate cancer Surgical History Surgical History History of colonoscopy with polypectomy History of transurethral resection of prostate Family History Family History Father Family history of cardiovascular disease Family history of elevated blood lipids Diabetes mellitus Suicide Mother Family history of malignant neoplasm of breast in first degree relative Other Hypertension Social History Social History (Updated 04/27/23 @ 21:59 by Maureen Mendez PA-C) Social History: Surrogate medical decision maker: Jc Goins, son. Code status: Smoking packs per day: 3 Smoking cigarettes per day: 60.0 Years smoked: 11 Smoking pack-years: 33.00 Smoking status: Former smoker Tobacco type: cigars Second hand tobacco smoke exposure: No Alcohol intake: current Drinks per week: 1 Alcohol use details: Rare alcohol use. Substance use: never Substance use type: does not use Do You Feel Safe in your Home?: Yes
[2023-04-27] MEDS: SODIUM CHLORIDE 0.9% IV 1,000 ML 999 ML IV CONT (16:37)
[2023-04-27] MEDS: POTASSIUM CHLORIDE 20 MEQ PACKET (FOR LIQUID) 40 MEQ PO (18:21)
[2023-04-27 20:16] LABS: Anion Gap 5 mmol/L (8-16); Blood Urea Nitrogen 25 mg/dL (9-20); Calcium 8.5 mg/dL (8.4-10.2); Carbon Dioxide 28 mmol/L (22-30); Chloride 101 mmol/L (98-107); Estimated CRCL calculation 35 ml/min; Estimated Glomerular Filt Rate 48; Glucose 89 mg/dL (65-110); Magnesium 2.1 mg/dL (1.6-2.3); Potassium 3.5 mmol/L (3.4-5.0); Sodium 134 mmol/L (137-145)
[2023-04-27 21:11] LABS: Creatine Kinase 5219 U/L (55-170)
--- NOTE | 2023-04-27 21:32 | ADMGEN ---
This patient, Abdulaziz Goins, was admitted to Medical Room 345-. Patient/family oriented to hospital policies and general routines including ID bracelet, bed and alarms, visiting hours, pain management, procedures, bathroom and other care routines, personal items, smoking policy, room service/diet, and visiting hours. Information on how to activate the Rapid Response Team has been discussed. Patient/Family are encouraged to report perceived risks to care and to ask questions if they do not understand what they are told or what they should do.
[2023-04-27] MEDS: CARBIDOPA/LEVODOPA 25/100 MG TABLET 3 TABLET PO (23:38)
[2023-04-27] MEDS: rOPINIRole HCL 0.5 MG TABLET 1.5 MG PO (23:39)
[2023-04-27] MEDS: TAMSULOSIN HCL 0.4 MG CAPSULE PO (23:39)
[2023-04-27] MEDS: SODIUM CHLORIDE 0.9% IV 1,000 ML 125 ML IV CONT (23:47)
[2023-04-27] MEDS: MELATONIN 3 MG TABLET PO (23:48)
[2023-04-28] VITALS (10 sets, daily range): BP systolic 78–130; BP diastolic 40–70; PULSE 54–80; RESP 16–18; TEMP 36.6–36.9; O2SAT 94–97
--- NOTE | 2023-04-28 | ECHO_ITS ---
Patient Info Name: Abdulaziz Goins Age: 83 years : 1940 Gender: Male Ht: 68 in Wt: 179 lbs BSA: 1.99 m2 HR: 55 bpm BP: 121 / 64 mmHg Heart Rhythm: Sinus Rhythm Technical Quality: Good Exam Date: 04/28/2023 11:30 AM Exam Location: Echo Lab Patient Status: Outpatient Admit Date: 04/27/2023 Staff Ordering Physician: Maureen Mendez PA-C Gas Jockey: Lisa Miranda RDCS Attending Provider: Eliana Dos Santos MD Referring Physician: Vanessa MOORE; Exam Type: CA echo doppler color flow Study Info Indications - syncope, bradycardia Complete two-dimensional, color flow and Doppler transthoracic echocardiogram is performed. Summary 1. Complete two-dimensional, color flow and Doppler transthoracic echocardiogram is performed. 2. Left ventricular chamber dimension is normal. 3. Left ventricular systolic function is normal, estimated at 65-70%. 4. There is mildly increased left ventricular wall thickness. 5. The left ventricular diastolic function is grade I diastolic dysfunction. 6. There is no aortic valve stenosis. 7. There is trace mitral valve regurgitation. 8. There is trace tricuspid valve regurgitation. 9. No pulmonary hypertension, estimated pulmonary arterial systolic pressure is 15 mmHg. Left Ventricle Left ventricular chamber dimension is normal. Left ventricular systolic function is normal, estimated at 65-70%. There is mildly increased left ventricular wall thickness. The left ventricular diastolic function is grade I diastolic dysfunction. Right Ventricle Right ventricular chamber dimension is normal. Right ventricular systolic function is normal. Left Atria Left atrial chamber dimension is mildly enlarged. Right Atria Right atrial chamber dimension is mildly enlarged. Aortic Valve The aortic valve is not well visualized. There is mild aortic valve sclerosis. There is no aortic valve stenosis. There is no aortic valve regurgitation. Pulmonic Valve The pulmonic valve is not well visualized. There is trace pulmonic regurgitation. Mitral Valve The mitral valve has thickened leaflets. There is trace mitral valve regurgitation. The mitral valve annulus is moderately calcified. Tricuspid Valve The tricuspid valve leaflets are normal. There is trace tricuspid valve regurgitation. No pulmonary hypertension, estimated pulmonary arterial systolic pressure is 15 mmHg. Pericardium/Pleural The pericardium appears epicardial fat pad. There is no pericardial effusion. Inferior Vena Cava Normal inferior vena cava with >50% collapse upon inspiration consistent with normal right atrial pressure, 5 mmHg. Aorta The aortic root size at the sinus of Valsalva is normal. There is mild aortic atherosclerosis. Left Ventricular Outflow Tract Name Value Normal LVOT 2D LVOT Diameter 2.1 cm LVOT Doppler LVOT Peak Gradient 6 mmHg LVOT Mean Gradient 3 mmHg LVOT VTI 33 cm LVOT VTI/AV VTI Ratio 1.1 LVOT Stroke Volume 113 ml LVOT CO 6.1 l/min LVOT CI 3.1 l/min/m2
[2023-04-28 05:24] LABS: Basophils Percent Auto 0.6 % (0.2-1.2); Eosinophils Absolute Auto 0.2 K/mm3 (0-0.3); Eosinophils Percent Auto 2.8 % (0-4.4); Hematocrit 30.7 % (42.0-52.0); Immature Granulocyte Absolute 0.04 K/mm3 (0.00-0.031); Immature Granulocyte Percent A 0.6 % (0-0.5); Lymphocytes Absolute Auto 1.43 K/mm3 (0.9-3.2); Lymphocytes Percent Auto 22.4 % (18.3-44.2); Mean Corpuscular HGB Conc 32.6 g/dl (32-36); Mean Corpuscular Hemoglobin 31.5 pg (26-34); Mean Corpuscular Volume 96.8 fl (80-100); Mean Platelet Volume 10.2 fl (7.4-10.4); Monocytes Absolute Auto 0.6 K/mm3 (0.1-0.6); Monocytes Percent Auto 9.3 % (2.6-8.5); Neutrophils Absolute Auto 4.1 K/mm3 (1.3-6.7); Neutrophils Percent Auto 64.3 % (45.5-73.1); Platelet Count Result 170 k/mm3 (150-375); Red Blood Count 3.17 M/mm3 (4.6-6.20); Red Cell Distribution Width 13.2 % (11.5-14.5); White Blood Count 6.4 K/mm3 (4.5-10.0)
[2023-04-28 05:48] LABS: Alanine Aminotransferase 15 U/L (6-50); Albumin Level 3.1 g/dL (3.5-5.1); Alkaline Phosphatase 60 U/L (38-126); Anion Gap 1 mmol/L (8-16); Aspartate Amino Transferase 160 U/L (17-59); Bilirubin,Total 0.7 mg/dL (0.2-1.3); Blood Urea Nitrogen 22 mg/dL (9-20); Calcium 8.3 mg/dL (8.4-10.2); Carbon Dioxide 29 mmol/L (22-30); Chloride 102 mmol/L (98-107); Estimated CRCL calculation 44 ml/min; Estimated Glomerular Filt Rate > 60; Glucose 88 mg/dL (65-110); Potassium 3.1 mmol/L (3.4-5.0); Sodium 132 mmol/L (137-145)
[2023-04-28] MEDS: SODIUM CHLORIDE 0.9% IV 1,000 ML 125 ML IV CONT ×2 (05:56→17:06)
[2023-04-28 06:30] LABS: Creatine Kinase 3776 U/L (55-170)
--- NOTE | 2023-04-28 09:11 | PM.IMPN ---
Progress Note: A&P Assessment and Plan (1) Syncope: Code(s): R55 - Syncope and collapse Status: Acute (2) Urinary tract infection: Code(s): N39.0 - Urinary tract infection, site not specified Status: Acute (3) Bradycardia: Code(s): R00.1 - Bradycardia, unspecified Status: Acute (4) Electrolyte abnormality: Code(s): E87.8 - Other disorders of electrolyte and fluid balance, not elsewhere classified Status: Acute (5) Chronic anemia: Code(s): D64.9 - Anemia, unspecified Status: Acute (6) Hypertension: Qualifiers: Hypertension type: primary hypertension Qualified Code(s): I10 - Essential (primary) hypertension Code(s): I10 - Essential (primary) hypertension Status: Chronic (7) Parkinsons disease: Code(s): G20 - Parkinson's disease Status: Chronic Plan The patient presented to the emergency department via EMS from his doctor's office for evaluation after syncopal episode Blood pressure was reportedly 60/40 and bradycardic in the range of 40s to 50s monitored on telemetry to rule out cardiac dysrhythmia or sinus pauses as a cause of his syncope. His creatinine is elevated from baseline and perhaps he is a bit dry thus he will be hydrated overnight. has Parkinson's disease Differentials including autonomic dysfunction predisposing him to orthostatic hypotension, dehydration, but need to cardiogenic syncope Follow echocardiogram, carotid Doppler Discontinue metoprolol 12.5 mg b.i.d. p.o. Consult bathhouse keeper Acute renal failure Elevated BUN creatinine above baseline Received fluid resuscitation BUN creatinine trending down, possible prerenal UTI Patient has cloudy urine, urinalysis suggests pyuria, and hematuria Patient receive ceftriaxone, will continue ceftriaxone IV Follow-up urine culture Follow-up renal and bladder ultrasound Parkinson disease Patient wheelchair-bound because of Parkinson disease Dysphagia Speech eval recommend pureed diet chronic anemia which is stable on review of previous labs. Initiate fall precautions. Patient came from home, living alone, patient has general weakness, consult PT OT personal care worker for evaluation and assisting placement . Subjective Date/time seen: 04/28/23 09:11 Interval history: I saw exam patient today, patient is lethargic, patient complains suprapubic pain, dysuria. Patient came from home, patient has severe chair bound because of Parkinson disease. Per speech evaluation, recommend pureed diet. Patient afebrile, blood pressure stable Exam Narrative: GENERAL: Lethargic in no acute distress. Well-nourished. - EYES: EOMI. Anicteric. - HENT: Moist mucous membranes. - LUNGS: Clear to auscultation bilaterally, no wheezing, rhonchi, or rales. - CARDIOVASCULAR: Regular rate and rhythm. No murmur. No JVD. - ABDOMEN: Soft, suprapubic tender and non-distended. No palpable masses. - EXTREMITIES: No edema. Peripheral pulses 2+. Non-tender. - NEUROLOGIC: No focal neurological deficits. CN II-XII grossly intact. General weakness - PSYCHIATRIC: Awake, Alert and oriented x 3. Appropriate mood and affect. - SKIN: No rashes or lesions. Warm. - LYMPH: No cervical lymphadenopathy. Objective Data Vital Signs Vital Signs: Vital Signs - 24 hr 04/27/23 13:53 04/27/23 13:59 04/27/23 14:00 Temperature 96.5 F L Pulse Rate 56 L 55 L Respiratory Rate 18 16 18 Blood Pressure 125/74 Pulse Oximetry 100 100 Oxygen Delivery Room Air 04/27/23 14:03 04/27/23 14:04 04/27/23 14:33 Temperature Pulse Rate 61 58 L 49 L Respiratory Rate 20 18 16 Blood Pressure 125/74 Pulse Oximetry 99 100 Oxygen Delivery 04/27/23 14:45 04/27/23 14:46 04/27/23 15:01 Temperature Pulse Rate 49 L 49 L 51 L Respiratory Rate 16 16 17 Blood Pressure 103/64 107/70 Pulse Oximetry 98 Oxygen Delivery 04/27/23 15:02 04/27/23 15:15 04/27/23 15:1
--- NOTE | 2023-04-28 11:14 | PM.CNCAR ---
Assessment and Plan Assessment and plan (1) Syncope: Qualifiers: Syncope type: vasovagal syncope Qualified Code(s): R55 - Syncope and collapse Code(s): R55 - Syncope and collapse Status: Acute Assessment and Plan: Syncope appears to be consistent with intravascular volume depletion related to underlying urinary tract infection complicated by Parkinson's disease with possible autonomic dysfunction although no clear persistent orthostasis documented thus far. Patient has no prior known history of syncope but has history of multiple falls he relates to generalized weakness and imbalance but no dizziness or near syncope as he reports. He does not have severe or hemodynamically significant valvular heart disease as the explanation. There is no evidence for significant outflow tract obstruction or LV dysfunction as result. No evidence of high-grade AV block or symptomatic bradycardia as contribution. CK elevated secondary to multiple falls complicated by intravascular volume depletion. It would be highly unlikely for him to have significant carotid arterial stenosis as the explanation for his presentation given the above findings. All this has been ordered and results are pending [place] carotid stenosis identified it would be very unlikely to be the primary issue at this juncture. Continue IV fluids per hospitalist service. Continue IV ceftriaxone transition oral antibiotics as appropriate per hospitalist service. I see no benefit to continuing low-dose metoprolol so I would not resume at discharge. Furthermore, an alternative to hydrochlorothiazide for blood pressure control I feel would be strongly advised as this will contribute to not only lowering of blood pressure but intravascular volume depletion which would make it far more likely for him to fall. As such, I would not resume hydrochlorothiazide and would defer to primary service for alternative antihypertensive as clinically appropriate. Unless he has significant symptomatic orthostatic hypotension initiation of fludrocortisone or midodrine does not appear to be appropriate at this time. Lower extremity compression stockings, abdominal binder with extreme caution with ambulation rising slowly from a seated position to avoid risk for falls and injuries. Avoid dehydration and ensuring adequate oral intake crucial to minimizing fall risk. Patient high risk for potential catastrophic complication late fall risk particularly of head injury. DVT prophylaxis with SCDs. No indication for further invasive cardiovascular workup or evaluation. Will sign off. Will provide relevant recommendations if new or significant concerns noted after full review 2D echocardiogram. (2) Acute UTI: Code(s): N39.0 - Urinary tract infection, site not specified Status: Acute Assessment and Plan: Very likely primary contribute to patient's presentation in combination with comorbidities. Continue IV ceftriaxone. Cultures pending. Management per primary service. (3) Bradycardia: Code(s): R00.1 - Bradycardia, unspecified Status: Acute Assessment and Plan: Incidental finding particularly given his outpatient use of metoprolol. While there is no evidence this is contributing in any fashion I would not resume do not see a reasonable clinical indication to do so. Metoprolol will not adequately control his blood pressure and persistent bradycardia, in light of his comorbidities will only serve to increase the likelihood for falls. (4) [id number] kidney injury: Code(s): N17.9 - Acute kidney failure, unspecified; N18.9 - Chronic kidney disease, unspecified Status: Acute Assessment and Plan: Secondary to intravascular volume depletion related to underlying urinary tract infection and hydrochlorothiazide. Patient's other findings with hyponatremia, hypokalemia, acute kidney injury also exacerbated by hydrochlorothiazide and as such alternati
[2023-04-28] MEDS: rOPINIRole HCL 0.5 MG TABLET 1.5 MG PO ×3 (12:00→20:19)
[2023-04-28] MEDS: ASPIRIN 81 MG CHEWABLE TABLET PO (12:00)
[2023-04-28] MEDS: CARBIDOPA/LEVODOPA 25/100 MG TABLET 3 TABLET PO ×3 (12:01→20:19)
[2023-04-28] MEDS: PANTOPRAZOLE 40 MG TABLET PO (12:01)
[2023-04-28] MEDS: SODIUM CHLORIDE 0.9% IV 500 ML 999 ML IV CONT (14:06)
--- NOTE | 2023-04-28 14:15 | PCPTNOTE ---
Attempted PT evaluation, pt BP too low/pt getting a bolus at this time. Will follow.
--- NOTE | 2023-04-28 14:20 | PCOTNOTE ---
Per RN, pt's BP too low currently for therapy. Will continue to follow.
[2023-04-28] MEDS: TAMSULOSIN HCL 0.4 MG CAPSULE PO (20:19)
[2023-04-28] MEDS: MELATONIN 3 MG TABLET PO (20:19)
[2023-04-29] VITALS (13 sets, daily range): BP systolic 44–172; BP diastolic 33–91; PULSE 57–77; RESP 16–20; TEMP 36.5–37; O2SAT 98–100
[2023-04-29] MEDS: SODIUM CHLORIDE 0.9% IV 1,000 ML 125 ML IV CONT ×4 (01:23→22:22)
[2023-04-29] MEDS: ONDANSETRON INJ 4 MG/2 ML VIAL IV PUSH (02:10)
--- NOTE | 2023-04-29 08:56 | PM.IMPN ---
Progress Note: A&P Assessment and Plan (1) Syncope: Qualifiers: Syncope type: vasovagal syncope Qualified Code(s): R55 - Syncope and collapse Code(s): R55 - Syncope and collapse Status: Acute (2) Urinary tract infection: Code(s): N39.0 - Urinary tract infection, site not specified Status: Acute (3) Bradycardia: Code(s): R00.1 - Bradycardia, unspecified Status: Acute (4) Electrolyte abnormality: Code(s): E87.8 - Other disorders of electrolyte and fluid balance, not elsewhere classified Status: Acute (5) Chronic anemia: Code(s): D64.9 - Anemia, unspecified Status: Acute (6) Hypertension: Qualifiers: Hypertension type: primary hypertension Qualified Code(s): I10 - Essential (primary) hypertension Code(s): I10 - Essential (primary) hypertension Status: Chronic (7) Parkinsons disease: Code(s): G20 - Parkinson's disease Status: Chronic Plan The patient presented to the emergency department via EMS from his doctor's office for evaluation after syncopal episode Blood pressure was reportedly 60/40 and bradycardic in the range of 40s to 50s monitored on telemetry to rule out cardiac dysrhythmia or sinus pauses as a cause of his syncope. His creatinine is elevated from baseline and perhaps he is a bit dry thus he will be hydrated overnight. has Parkinson's disease Differentials including autonomic dysfunction predisposing him to orthostatic hypotension, dehydration, but need to cardiogenic syncope Follow echocardiogram, carotid Doppler Discontinue metoprolol 12.5 mg b.i.d. p.o. Consult science interpreter Appreciate cardiology's consultation, science interpreter recommends no further cardiac workup Orthostatic hypotension Patient was noticed to have significant hypotension when patient was in chair, blood pressure 44/33, patient lost consciousness start midodrine 10 mg t.i.d. p.o. Normal saline 500 bolus once 04/29 Acute renal failure Elevated BUN creatinine above baseline Received fluid resuscitation BUN creatinine trending down, possible prerenal UOA resolves now UTI Patient has cloudy urine, urinalysis suggests pyuria, and hematuria Patient receive ceftriaxone, will continue ceftriaxone IV 04/28 Follow-up urine culture: Gram-negative baseline Follow-up renal and bladder ultrasound: Unremarkable Parkinson disease Patient wheelchair-bound because of Parkinson disease Dysphagia Speech eval recommend pureed diet chronic anemia which is stable on review of previous labs. Initiate fall precautions. Patient came from home, living alone, patient has general weakness, consult PT OT home health aide caregiver for evaluation and assisting placement . Subjective Date/time seen: 04/29/23 08:56 Interval history: I saw examined the patient. Patient was found minimal responsive in the chair, blood pressure was 44/33 in the chair, patient was moving the bed, patient will,, patient was not confused. Patient feel tired. In the bed, blood pressure 105/72, telemetry showed sinus rhythm, heart rate 70, glucose 126. Patient denied headache, chest pain, palpitation, abdomen pain, nausea vomiting. Patient is afebrile overnight, no O2 desaturation on room air Exam Narrative: GENERAL: Lethargic in no acute distress. Well-nourished. - EYES: EOMI. Anicteric. - HENT: Moist mucous membranes. - LUNGS: Clear to auscultation bilaterally, no wheezing, rhonchi, or rales. - CARDIOVASCULAR: Regular rate and rhythm. No murmur. No JVD. - ABDOMEN: Soft, suprapubic tender and non-distended. No palpable masses. - EXTREMITIES: No edema. Peripheral pulses 2+. Non-tender. - NEUROLOGIC: No focal neurological deficits. CN II-XII grossly intact. General weakness - PSYCHIATRIC: Awake, Alert and oriented x 3. Appropriate mood and affect. - SKIN: No rashes or lesions. Warm. - LYMPH: No cervical lymphadenopathy. Objective Data Vital Signs Vit
[2023-04-29] MEDS: ASPIRIN 81 MG CHEWABLE TABLET PO (09:43)
[2023-04-29] MEDS: CARBIDOPA/LEVODOPA 25/100 MG TABLET 3 TABLET PO ×4 (09:43→20:35)
[2023-04-29] MEDS: rOPINIRole HCL 0.5 MG TABLET 1.5 MG PO ×4 (09:43→20:34)
[2023-04-29] MEDS: PANTOPRAZOLE 40 MG TABLET PO (09:43)
[2023-04-29 10:40] LABS: Anion Gap 5 mmol/L (8-16); Blood Urea Nitrogen 14 mg/dL (9-20); Carbon Dioxide 28 mmol/L (22-30); Chloride 104 mmol/L (98-107); Estimated CRCL calculation 53 ml/min; Estimated Glomerular Filt Rate > 60; Glucose 110 mg/dL (65-110); Potassium 3.5 mmol/L (3.4-5.0); Sodium 137 mmol/L (137-145)
--- NOTE | 2023-04-29 10:55 | PCPTNOTE ---
Attempted PT evaluation, pt found minimally responsive in the chair. Assisted RN with transferring pt back to bed. Staff/hospitalist present prior to physical therapist leaving.
[2023-04-29 10:59] LABS: Glucose Point of Care 126 mg/dl (65-105)
--- NOTE | 2023-04-29 11:05 | PC.NURSE ---
Patient was sitting in chair, not responding with physical therapy, automatic blood pressure was taken (see vitals). RN, ENGINE INSTALLER, and physical therapy transferred patient to bed. RN called hat blocker to come assess patient as hell. Hospitalist was on unit and also assessed patient. RN took manual blood pressure (see vitals). New orders given at bedside by hospitalist Donny (see orders).
[2023-04-29] MEDS: SODIUM CHLORIDE 0.9% IV 500 ML 999 ML IV CONT (11:15)
[2023-04-29] MEDS: MIDODRINE HCL 10 MG TABLET PO ×2 (12:27→16:39)
[2023-04-29] MEDS: MICONAZOLE NITRATE 2% CREAM 30 GM TUBE 1 APPLIC TOPICAL (20:34)
[2023-04-29] MEDS: TAMSULOSIN HCL 0.4 MG CAPSULE PO (20:34)
[2023-04-29] MEDS: MELATONIN 3 MG TABLET PO (20:34)
[2023-04-30] VITALS (8 sets, daily range): BP systolic 81–166; BP diastolic 51–103; PULSE 56–108; RESP 15–20; TEMP 36.4–37; O2SAT 96–99
[2023-04-30] MEDS: SODIUM CHLORIDE 0.9% IV 1,000 ML 125 ML IV CONT (05:59)
[2023-04-30 06:13] LABS: Anion Gap 8 mmol/L (8-16); Blood Urea Nitrogen 14 mg/dL (9-20); Calcium 9.2 mg/dL (8.4-10.2); Carbon Dioxide 27 mmol/L (22-30); Chloride 101 mmol/L (98-107); Estimated CRCL calculation 53 ml/min; Estimated Glomerular Filt Rate > 60; Glucose 98 mg/dL (65-110); Potassium 3.3 mmol/L (3.4-5.0); Sodium 136 mmol/L (137-145)
--- NOTE | 2023-04-30 08:09 | PM.IMPN ---
Progress Note: A&P Assessment and Plan (1) Syncope: Qualifiers: Syncope type: vasovagal syncope Qualified Code(s): R55 - Syncope and collapse Code(s): R55 - Syncope and collapse Status: Acute (2) Urinary tract infection: Code(s): N39.0 - Urinary tract infection, site not specified Status: Acute (3) Bradycardia: Code(s): R00.1 - Bradycardia, unspecified Status: Acute (4) Electrolyte abnormality: Code(s): E87.8 - Other disorders of electrolyte and fluid balance, not elsewhere classified Status: Acute (5) Chronic anemia: Code(s): D64.9 - Anemia, unspecified Status: Acute (6) Hypertension: Qualifiers: Hypertension type: primary hypertension Qualified Code(s): I10 - Essential (primary) hypertension Code(s): I10 - Essential (primary) hypertension Status: Chronic (7) Parkinsons disease: Code(s): G20 - Parkinson's disease Status: Chronic Plan The patient presented to the emergency department via EMS from his doctor's office for evaluation after syncopal episode Blood pressure was reportedly 60/40 and bradycardic in the range of 40s to 50s monitored on telemetry to rule out cardiac dysrhythmia or sinus pauses as a cause of his syncope. His creatinine is elevated from baseline and perhaps he is a bit dry thus he will be hydrated overnight. has Parkinson's disease Differentials including autonomic dysfunction predisposing him to orthostatic hypotension, dehydration, but need to cardiogenic syncope Follow echocardiogram, carotid Doppler Discontinue metoprolol 12.5 mg b.i.d. p.o. Consult design studio consultant Appreciate cardiology's consultation, design studio consultant recommends no further cardiac workup Orthostatic hypotension Patient was noticed to have significant hypotension when patient was in chair, blood pressure 44/33, patient lost consciousness start midodrine 10 mg t.i.d. p.o. Normal saline 500 bolus once 04/29 BP stable dc NS 04/30 and decrease midodrine to 5 mg tid po Perform orthostatic test daily Acute renal failure Elevated BUN creatinine above baseline Received fluid resuscitation BUN creatinine trending down, possible prerenal UOA resolves now dc NS on 04/30 UTI Patient has cloudy urine, urinalysis suggests pyuria, and hematuria Patient receive ceftriaxone, will continue ceftriaxone IV 04/28 Follow-up urine culture: Proteus mirabilis susceptible to ceftriaxone Follow-up renal and bladder ultrasound: Unremarkable Parkinson disease Patient wheelchair-bound because of Parkinson disease Dysphagia Speech eval recommend pureed diet chronic anemia which is stable on review of previous labs. Initiate fall precautions. Patient came from home, living alone, patient has general weakness, consult PT OT health care attorney for evaluation and assisting placement . Subjective Date/time seen: 04/30/23 08:09 Interval history: I saw and examined the patient. Patient was sitting in chair, patient denied dizziness, weakness, patient feels tired. Blood pressure pumps up, chest pain, palpitation, abdomen pain, nausea vomiting. Patient is afebrile overnight, no O2 desaturation on room air Exam Narrative: GENERAL: Lethargic in no acute distress. Well-nourished. - EYES: EOMI. Anicteric. - HENT: Moist mucous membranes. - LUNGS: Clear to auscultation bilaterally, no wheezing, rhonchi, or rales. - CARDIOVASCULAR: Regular rate and rhythm. No murmur. No JVD. - ABDOMEN: Soft, suprapubic tender and non-distended. No palpable masses. - EXTREMITIES: No edema. Peripheral pulses 2+. Non-tender. - NEUROLOGIC: No focal neurological deficits. CN II-XII grossly intact. General weakness - PSYCHIATRIC: Awake, Alert and oriented x 3. Appropriate mood and affect. - SKIN: No rashes or lesions. Warm. - LYMPH: No cervical lymphadenopathy. Objective Data Vital Signs Vital Signs: Vital Signs - 24 hr 04/29/23 08:35 02
[2023-04-30 08:27] LABS: Hematocrit 37.8 % (42.0-52.0); Hemoglobin 12.3 g/dL (14.0-18.0); Mean Corpuscular HGB Conc 32.5 g/dl (32-36); Mean Corpuscular Hemoglobin 31.5 pg (26-34); Mean Corpuscular Volume 96.9 fl (80-100); Mean Platelet Volume 10.1 fl (7.4-10.4); Platelet Count Result 187 k/mm3 (150-375); Red Cell Distribution Width 13.2 % (11.5-14.5); White Blood Count 8.4 K/mm3 (4.5-10.0)
[2023-04-30] MEDS: ASPIRIN 81 MG CHEWABLE TABLET PO (08:39)
[2023-04-30] MEDS: CARBIDOPA/LEVODOPA 25/100 MG TABLET 3 TABLET PO ×4 (08:39→20:04)
[2023-04-30] MEDS: rOPINIRole HCL 0.5 MG TABLET 1.5 MG PO ×4 (08:39→20:04)
[2023-04-30] MEDS: PANTOPRAZOLE 40 MG TABLET PO (08:39)
[2023-04-30 08:45] LABS: Alanine Aminotransferase 40 U/L (6-50); Albumin Level 3.7 g/dL (3.5-5.1); Alkaline Phosphatase 72 U/L (38-126); Anion Gap 6 mmol/L (8-16); Aspartate Amino Transferase 111 U/L (17-59); Bilirubin,Total 0.8 mg/dL (0.2-1.3); Blood Urea Nitrogen 12 mg/dL (9-20); Carbon Dioxide 23 mmol/L (22-30); Chloride 103 mmol/L (98-107); Estimated CRCL calculation 59 ml/min; Estimated Glomerular Filt Rate > 60; Glucose 102 mg/dL (65-110); Potassium 3.3 mmol/L (3.4-5.0); Sodium 132 mmol/L (137-145)
[2023-04-30] MEDS: MIDODRINE HCL 2.5 MG TABLET 5 MG PO ×2 (13:22→16:38)
[2023-04-30] MEDS: TAMSULOSIN HCL 0.4 MG CAPSULE PO (20:04)
[2023-04-30] MEDS: MICONAZOLE NITRATE 2% CREAM 30 GM TUBE 1 APPLIC TOPICAL (20:05)
[2023-04-30] MEDS: MELATONIN 3 MG TABLET PO (20:05)
[2023-05-01] VITALS (12 sets, daily range): BP systolic 92–159; BP diastolic 60–87; PULSE 54–99; RESP 16–19; TEMP 36.4–36.7; O2SAT 98–100
[2023-05-01] MEDS: CARBIDOPA/LEVODOPA 25/100 MG TABLET 3 TABLET PO ×4 (08:34→20:20)
[2023-05-01] MEDS: rOPINIRole HCL 0.5 MG TABLET 1.5 MG PO ×4 (08:35→20:19)
[2023-05-01] MEDS: MIDODRINE HCL 2.5 MG TABLET 5 MG PO ×2 (08:35→12:49)
[2023-05-01] MEDS: ASPIRIN 81 MG CHEWABLE TABLET PO (08:35)
[2023-05-01] MEDS: PANTOPRAZOLE 40 MG TABLET PO (08:36)
[2023-05-01 10:27] LABS: Anion Gap 4 mmol/L (8-16); Blood Urea Nitrogen 22 mg/dL (9-20); Calcium 9.2 mg/dL (8.4-10.2); Carbon Dioxide 29 mmol/L (22-30); Chloride 103 mmol/L (98-107); Estimated CRCL calculation 48 ml/min; Estimated Glomerular Filt Rate > 60; Glucose 114 mg/dL (65-110); Potassium 3.3 mmol/L (3.4-5.0); Sodium 136 mmol/L (137-145)
--- NOTE | 2023-05-01 14:01 | PC.NURSE ---
Patient currently on pureed diet, Level 4 and mildly thickened liquids. Diet advanced to minced and moist, Level [address] Verdin. To be advanced as tolerated. Per speech evaluation report on 04/28/23, ok to advance as tolerated if oral transit time improves and patient is showing no signs of aspiration. Patient has been showing no signs of aspiration, is eating independent and has been alert and oriented. No delays in oral transit time observed.
--- NOTE | 2023-05-01 18:00 | PM.IMPN ---
Progress Note: A&P Assessment and Plan (1) Syncope: Qualifiers: Syncope type: vasovagal syncope Qualified Code(s): R55 - Syncope and collapse Code(s): R55 - Syncope and collapse Status: Acute (2) Urinary tract infection: Code(s): N39.0 - Urinary tract infection, site not specified Status: Acute (3) Bradycardia: Code(s): R00.1 - Bradycardia, unspecified Status: Acute (4) Electrolyte abnormality: Code(s): E87.8 - Other disorders of electrolyte and fluid balance, not elsewhere classified Status: Acute (5) Chronic anemia: Code(s): D64.9 - Anemia, unspecified Status: Acute (6) Hypertension: Qualifiers: Hypertension type: primary hypertension Qualified Code(s): I10 - Essential (primary) hypertension Code(s): I10 - Essential (primary) hypertension Status: Chronic (7) Parkinsons disease: Code(s): G20 - Parkinson's disease Status: Chronic Plan The patient presented to the emergency department via EMS from his doctor's office for evaluation after syncopal episode Blood pressure was reportedly 60/40 and bradycardic in the range of 40s to 50s monitored on telemetry to rule out cardiac dysrhythmia or sinus pauses as a cause of his syncope. His creatinine is elevated from baseline and perhaps he is a bit dry thus he will be hydrated overnight. has Parkinson's disease Differentials including autonomic dysfunction predisposing him to orthostatic hypotension, dehydration, but need to cardiogenic syncope Follow echocardiogram, carotid Doppler Discontinue metoprolol 12.5 mg b.i.d. p.o. Consult tugboat pilot Appreciate cardiology's consultation, tugboat pilot recommends no further cardiac workup Orthostatic hypotension Patient was noticed to have significant hypotension when patient was in chair, blood pressure 44/33, patient lost consciousness started midodrine 10 mg t.i.d. p.o. Normal saline 500 bolus once 04/29 BP stable dc NS 04/30 and decrease midodrine to 5 mg tid po ... Taper down to 5 mg p.o. b.i.d. today Perform orthostatic test daily Acute renal failure Elevated BUN creatinine above baseline Received fluid resuscitation BUN creatinine trending down, possible prerenal UOA resolves now dc NS on 04/30 UTI Patient has cloudy urine, urinalysis suggests pyuria, and hematuria Patient receive ceftriaxone, will continue ceftriaxone IV 04/28 Follow-up urine culture: Proteus mirabilis susceptible to ceftriaxone Follow-up renal and bladder ultrasound: Unremarkable Parkinson disease Patient wheelchair-bound because of Parkinson disease Dysphagia Speech eval initially recommended pureed diet ... Slowly advancing as patient is mentally more stable and tolerating diet advancement chronic anemia which is stable on review of previous labs. Initiate fall precautions. Patient came from home, living alone, patient has general weakness, consult PT OT career development coordinator/teacher for evaluation and assisting placement. DC planning home with home health care/halfway facility in am. ? Patient seen and examined at bedside during my morning rounds ? Collaborated with patient's nurse at the bedside in detail and addressed all concerns ? Labs, electrolytes, radiology, investigations and test results reviewed ? Consult/Nursing/Ancilliary notes on the chart reviewed and appreciated ? Spoke with patient/son at the bedside and answered all the questions that they had Repeat labs in a.m. Electrolyte replacement as per protocol. Patient will be monitored very closely on the floor. Further recommendations as per the hospital course. . Time Spent With Patient Time with patient: 15 - 25 minutes Subjective Date/time seen: 05/01/23 18:00 Interval history: Patient lying in bed during my morning rounds. He wants to eat real food. Spoke with the son at the bedside in detail. Review of Systems Review of Systems: Twelve system
[2023-05-01] MEDS: POTASSIUM CHLORIDE 20 MEQ PACKET (FOR LIQUID) 40 MEQ PO (19:03)
[2023-05-01] MEDS: MICONAZOLE NITRATE 2% CREAM 30 GM TUBE 1 APPLIC TOPICAL (20:19)
[2023-05-01] MEDS: MELATONIN 3 MG TABLET PO (20:20)
[2023-05-01] MEDS: TAMSULOSIN HCL 0.4 MG CAPSULE PO (20:21)
[2023-05-02] VITALS (7 sets, daily range): BP systolic 98–136; BP diastolic 64–75; PULSE 60–81; RESP 16–18; TEMP 36.7–37; O2SAT 98–99
[2023-05-02 05:33] LABS: Basophils Percent Auto 0.6 % (0.2-1.2); Eosinophils Absolute Auto 0.2 K/mm3 (0-0.3); Eosinophils Percent Auto 3.1 % (0-4.4); Hematocrit 32.7 % (42.0-52.0); Hemoglobin 10.6 g/dL (14.0-18.0); Immature Granulocyte Absolute 0.03 K/mm3 (0.00-0.031); Immature Granulocyte Percent A 0.4 % (0-0.5); Lymphocytes Absolute Auto 1.31 K/mm3 (0.9-3.2); Lymphocytes Percent Auto 18.3 % (18.3-44.2); Mean Corpuscular HGB Conc 32.4 g/dl (32-36); Mean Corpuscular Hemoglobin 31.3 pg (26-34); Mean Corpuscular Volume 96.5 fl (80-100); Mean Platelet Volume 9.9 fl (7.4-10.4); Monocytes Absolute Auto 0.6 K/mm3 (0.1-0.6); Monocytes Percent Auto 8.5 % (2.6-8.5); Neutrophils Absolute Auto 4.9 K/mm3 (1.3-6.7); Neutrophils Percent Auto 69.1 % (45.5-73.1); Platelet Count Result 189 k/mm3 (150-375); Red Blood Count 3.39 M/mm3 (4.6-6.20); Red Cell Distribution Width 13.3 % (11.5-14.5); White Blood Count 7.2 K/mm3 (4.5-10.0)
[2023-05-02 05:56] LABS: Anion Gap 2 mmol/L (8-16); Blood Urea Nitrogen 22 mg/dL (9-20); Carbon Dioxide 29 mmol/L (22-30); Chloride 102 mmol/L (98-107); Estimated CRCL calculation 48 ml/min; Estimated Glomerular Filt Rate > 60; Glucose 98 mg/dL (65-110); Sodium 133 mmol/L (137-145)
[2023-05-02 06:28] LABS: Potassium 3.8 mmol/L (3.4-5.0)
[2023-05-02] MEDS: ASPIRIN 81 MG CHEWABLE TABLET PO (10:02)
[2023-05-02] MEDS: PANTOPRAZOLE 40 MG TABLET PO (10:02)
[2023-05-02] MEDS: POTASSIUM CHLORIDE 20 MEQ PACKET (FOR LIQUID) 40 MEQ PO (10:02)
[2023-05-02] MEDS: MIDODRINE HCL 2.5 MG TABLET 5 MG PO (10:02)
[2023-05-02] MEDS: rOPINIRole HCL 0.5 MG TABLET 1.5 MG PO ×2 (10:05→13:19)
[2023-05-02] MEDS: CARBIDOPA/LEVODOPA 25/100 MG TABLET 3 TABLET PO ×2 (10:05→13:19)
--- NOTE | 2023-05-02 14:37 | PM.DS ---
DS: Admitting Diagnosis Discharge Date 05/02/2023: Admitting Diagnosis (1) Syncope: ?Code(s): R55 - Syncope and collapse ?Status:?Acute (2) Urinary tract infection: ?Code(s): N39.0 - Urinary tract infection, site not specified ?Status:?Acute (3) Bradycardia: ?Code(s): R00.1 - Bradycardia, unspecified ?Status:?Acute (4) Electrolyte abnormality: ?Code(s): E87.8 - Other disorders of electrolyte and fluid balance, not elsewhere classified ?Status:?Acute (5) Chronic anemia: ?Code(s): D64.9 - Anemia, unspecified ?Status:?Acute (6) Hypertension: ?Qualifiers: ?Hypertension type:?primary hypertension? Qualified Code(s):?I10 - Essential (primary) hypertension ?Code(s): I10 - Essential (primary) hypertension ?Status:?Chronic (7) Parkinsons disease: ?Code(s): G20 - Parkinson's disease ?Status:?Chronic DS: Discharge Diagnosis Discharge Diagnosis (1) [id number] kidney injury: Code(s): N17.9 - Acute kidney failure, unspecified; N18.9 - Chronic kidney disease, unspecified Status: Acute (2) Acute UTI: Code(s): N39.0 - Urinary tract infection, site not specified Status: Acute (3) Electrolyte abnormality: Code(s): E87.8 - Other disorders of electrolyte and fluid balance, not elsewhere classified Status: Acute (4) Chronic anemia: Code(s): D64.9 - Anemia, unspecified Status: Acute (5) Syncope: Qualifiers: Syncope type: vasovagal syncope Qualified Code(s): R55 - Syncope and collapse Code(s): R55 - Syncope and collapse Status: Acute (6) Chronic kidney disease, stage 3: Code(s): N18.30 - Chronic kidney disease, stage 3 unspecified Status: Acute (7) Benign prostatic hyperplasia: Code(s): N40.0 - Benign prostatic hyperplasia without lower urinary tract symptoms Status: Acute (8) Hypokalemia: Code(s): E87.6 - Hypokalemia Status: Resolved (9) Dysphasia: Code(s): R47.02 - Dysphasia Status: Acute (10) Overweight (BMI 25.0-29.9): Status: Acute (11) Hyperlipidemia: Code(s): E78.5 - Hyperlipidemia, unspecified Status: Chronic (12) Hypertension: Qualifiers: Hypertension type: primary hypertension Qualified Code(s): I10 - Essential (primary) hypertension Code(s): I10 - Essential (primary) hypertension Status: Chronic (13) Parkinsons disease: Code(s): G20 - Parkinson's disease Status: Chronic DS: Summary Hospital Course Reason for hospitalization: Patient admitted with a syncopal episode Hospital Course: H&P: HPI History of Present Illness Date/Time: 04/27/23? 16:30 Chief Complaint: Syncope. Narrative: This is an 83-year-old male with Parkinson's disease, dementia, chronic kidney disease, hypertension, hyperlipidemia, prostate cancer, and benign prostatic hyperplasia who presented to the emergency department via EMS from his doctor's office for evaluation after a syncopal episode. The patient provides the following history. He was seen in the ED 2 days ago accompanied by his son for evaluation of weakness and increasing confusion from baseline. His workup was essentially unremarkable and he was able to be discharged home after demonstrating that he was able to transfer from bed to the wheelchair and back to bed again without much assistance. Today he was at his doctor's office for a post ED visit checkup where he had a syncopal episode after standing up. He does not really remember what happened and is my understanding that he was unresponsive for quite some time. Blood pressure was reportedly in the 60s over 40s and EMS was summoned. In the ED: Blood pressures have been well within normal limits since arrival. Pulse has been persistently in the upper 40s to low 50s which looks to be bit lower than his baseline. Labs were significant for WBC count of 8.8, hemoglobin
== END 2023-05-02 17:15 | disposition home health service (06) | DRG 690 ==
LOC: ANHED 14:38 → ANH3MEDSUR 18:19 → ANH3MED 20:47
PROVIDERS: Hospitalist; Physician Assistant; Admitting Provider General Practice; Emergency Provider Emergency Medicine; PCP Internal Medicine; Visit Provider Family Medicine
DX: N39.0 Urinary tract infection, site not specified (principal); N17.9 Acute kidney failure, unspecified; B96.4 Proteus (mirabilis) (morganii) as the cause of diseases classified elsewhere; I95.1 Orthostatic hypotension; R00.1 Bradycardia, unspecified; D64.9 Anemia, unspecified; I12.9 Hypertensive chronic kidney disease with stage 1 through stage 4 chronic kidney disease, or unspecified chronic kidney disease; E87.8 Other disorders of electrolyte and fluid balance, not elsewhere classified; N18.30 Chronic kidney disease, stage 3 unspecified; N40.0 Benign prostatic hyperplasia without lower urinary tract symptoms; E87.6 Hypokalemia; R47.02 Dysphasia; K21.9 Gastro-esophageal reflux disease without esophagitis; E78.5 Hyperlipidemia, unspecified; G20.A1 Parkinson's disease without dyskinesia, without mention of fluctuations; F03.90 Unspecified dementia, unspecified severity, without behavioral disturbance, psychotic disturbance, mood disturbance, and anxiety; Z85.46 Personal history of malignant neoplasm of prostate; Z99.3 Dependence on wheelchair; Z79.82 Long term (current) use of aspirin; Z86.718 Personal history of other venous thrombosis and embolism; Z87.891 Personal history of nicotine dependence
CPT/HCPCS: 36415; 70450; 71045; 76775; 80048; 80053; 81001; 82550; 82948; 83605; 83735; 84443; 84484; 85025; 85027; 85610; 85730; 87086; 87186; 92611; 93005; 93306; 93880; 96361; 96365; 96375; 97110; 97161; 97166; 97530; 99285; A9270; G0378; J0696; J2405; J7030

== ENCOUNTER 2023-06-14 15:07 | Inpatient (IN) | payer MEDICARE, SELFPAY ==
[2023-06-14] VITALS (26 sets, daily range): BP systolic 112–177; BP diastolic 54–108; PULSE 73–98; RESP 15–34; TEMP 36.5–36.6; O2SAT 98–100; BMI 27.0; BMI 27.6
--- NOTE | ~2023-06-14 | XR_ITS ---
EXAMINATION: XR_RIBSBI_CR DATE: 06/15/2023 11:56 INDICATION: Bilateral chest pain. Fall. TECHNIQUE: 2 views of the right ribs and 2 views of the left ribs on a total of 9 radiographs were ob tained. COMPARISON: Chest single view 06/14/2023 FINDINGS: There is mild scarring at the lung apices. There is no pneumonia, pleural effusion, or pneu mothorax. The heart size is normal. Calcified right hilar and mediastinal lymph nodes are consistent with old granulomatous disease. There is an old healed fracture of left 10th rib. There is a fracture of right seventh rib. IMPRESSION: 1. Right seventh rib fracture. Reviewed, dictated and finalized at location A.
--- NOTE | ~2023-06-14 | CT_ITS ---
EXAMINATION: CT chest abdomen wo con DATE: 06/16/2023 08:56 INDICATION: Rib fracture post fall TECHNIQUE: Computed tomography (CT) of the chest and abdomen was performed without intravenous contra st. Automated exposure control and iterative reconstruction technique were employed. The dose-length product was 948.29 mGy-cm. COMPARISON: CT dated 11/06/2022 FINDINGS: CHEST CT: Small left pleural effusion. There is mild dependent atelectasis in the bilateral lower lobes. No pne umonia, pulmonary edema or pneumothorax. A couple small calcified right lower lobe nodules along with calcified right hilar and mediastinal lymph nodes consistent with old granulomatous disease. Relativ ty acute appearing lateral right seventh rib fracture. No other fractures identified. Heart size is normal. Atherosclerotic coronary artery calcification. Mitral annular calcification. No pericardial e ffusion. Thoracic aorta is normal in caliber. Mild bilateral glenohumeral osteoarthritis with small l oose osteochondral body and small amount of fluid at the left deep subscapular recess. ABDOMEN CT: Again seen are several scattered hepatic cysts the largest in the left hepatic lobe measuring 1.7 cm. Tiny splenic calcific location consistent with old granulomatous disease. Gallbladder, pancreas and bilateral adrenal glands are normal. 2 mm nonobstructing stone in upper pole calyx of the left kidney . Kidneys otherwise normal with no hydronephrosis. Small amount of gas and a [place] catheter seen with in the bladder which demonstrates mild wall thickening which could be seen with cystitis. There are f ew scattered diverticula along the visualized portion of the distal colon without adjacent from trace stranding to suggest diverticulitis. Small bowel and appendix are normal. No pathologically enlarged abdominal lymphadenopathy. 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 IMPRESSION: 1. Acute nondisplaced lateral right seventh rib fracture. No right pneumothorax/hemothorax. 2. Small left pleural effusion. 3. No acute intra-abdominal process. 4. Diffuse mild bladder wall thickening which could be due to chronic outlet obstruction or cystitis either acute or chronic. Reviewed, dictated and finalized at location B. IMPRESSION: 1. Acute nondisplaced lateral right seventh rib fracture. No right pneumothorax /hemothorax. 2. Small left pleural effusion. 3. No acute intra-abdominal process. 4. Diffuse mild bladder wall thickening which could be due to chronic outlet ob struction or cystitis either acute or chronic.
--- NOTE | ~2023-06-14 | XR_ITS ---
EXAMINATION: XR shoulder LT 1V DATE: 06/15/2023 11:57 INDICATION: Left shoulder pain. TECHNIQUE: A single view of left shoulder was obtained. COMPARISON: Rib radiographs 06/15/2023 FINDINGS: Bone alignment is normal. No fracture. There is mild osteoarthritis of glenohumeral joint a nd moderate osteoarthritis of acromioclavicular joint. IMPRESSION: 1. Polyarticular osteoarthritis. Reviewed, dictated and finalized at location A.
--- NOTE | ~2023-06-14 | XR_ITS ---
XR chest 1V portable 06/14/2023 16:12 Indication: Altered mental status Procedure: AP portable chest Comparison: Comparison to multiple prior studies sequentially, with oldest reviewed study dated 05/2021. Findings: Borderline heart size. There is ectasia of the aorta. No focal air space disease, pulmonary edema, pleural effusion or suspected pneumothorax. Impression: 1: No acute cardiopulmonary disease. Reviewed, dictated and finalized at location A. Impression: 1: No acute cardiopulmonary disease.
--- NOTE | ~2023-06-14 | CT_ITS ---
EXAMINATION: CT pelvis wo con, CT lumbar spine wo con DATE: 06/14/2023 16:09 INDICATION: Fall with low back pain TECHNIQUE: 1. Computed tomography (CT) of the lumbar spine was performed without intravenous contrast. Sagittal and coronal reconstructions were performed. Automated exposure control and iterative reconstruction t echnique were employed. The dose-length product was 1099.53 mGy-cm. 2. CT of the pelvis was performed without intravenous contrast. Sagittal and coronal reconstructions were performed. The dose-length product was 271.83 mGy-cm. COMPARISON: CT abdomen and pelvis dated 11/06/2022 FINDINGS: Lumbar spine: 15 degrees lumbar levoscoliosis. L5 spondylolysis with bilateral pars interarticularis defects and 10 mm anterolisthesis L5 on S1. 1-2 mm retrolisthesis L1 on L2. Chronic appearing mild likely physiolog ic anterior wedging at T12. Lumbar vertebral body heights are normal. No fractures. Severe disc heigh t loss at L5-S1. Moderate disc height loss with vacuum phenomena at L1-L2 and moderate right-sided pr edominant disc height loss at L2-L3. Mild disc height loss at L3-L4 and at multiple levels in the vis ualized lower thoracic spine. Mild respiratory motion and dependent atelectasis at the posterior sulc i of the lungs. The paravertebral soft tissues are unremarkable. The following disc levels are specif ically discussed: T11-T12: There is mild bilateral facet joint osteoarthritis. There is no neural foraminal stenosis. T here is no central canal stenosis. T12-L1: There is mild bilateral facet joint osteoarthritis. There is mild right neural foraminal sten osis. There is no central canal stenosis. L1-L2: Disc is mildly bulging. There is mild bilateral facet joint osteoarthritis. There is moderate left and moderate to severe right neural foraminal stenosis. There is mild central canal stenosis. L2-L3: Mild posterior disc osteophyte complex. There is mild bilateral facet joint osteoarthritis. Th ere is moderate bilateral neural foraminal stenosis. There is mild central canal stenosis. L3-L4: Disc is bulging. There is moderate right and mild to moderate left facet joint osteoarthritis. There is moderate bilateral neural foraminal stenosis. There is moderate central canal stenosis. L4-L5: Disc is bulging. There is moderate right and severe left facet joint osteoarthritis. There is mild left and moderate right neural foraminal stenosis. There is mild central canal stenosis. L5-S1: Disc does not extend beyond the more posterior S1 endplate margin. In addition to the bilatera l pars intra-articular is defects there is moderate bilateral facet osteoarthritis. There is severe r ight and moderate to severe left neural foraminal stenosis. There is no central canal stenosis. Pelvis: Alignment is normal. No fracture or suspected osteonecrosis. Polyarticular osteoarthritis, mild to mo derate at the left hip and bilateral sacroiliac joints and moderate severity at the right hip. Mild d iverticulosis along the descending and sigmoid colon without adjacent from trace stranding to suggest diverticulitis. Suggestion of prior transurethral prostatectomy. There is prominent asymmetric enlargement of the rig ht seminal vesicle. No free fluid in the pelvis. No pathologically enlarged pelvic or inguinal lympha denopathy. IMPRESSION: 1. Severe lower lumbar predominant spondylosis. 2. 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 No acute osseous abnormality at the lumbar spine or pelvis. 3. 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 Reviewed, dictated and finalized at location A. IMPRESSION: 1. Severe lower lumbar predominant spondylosis. 2. 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 No acute osseous abnormality at the lumbar spin e or pelvis. 3. 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
--- NOTE | ~2023-06-14 | CT_ITS ---
EXAMINATION: CT brain wo con DATE: 06/14/2023 16:08 INDICATION: Status post fall. TECHNIQUE: Computed tomography (CT) of the head was performed without intravenous contrast. The dose- length product was 681.00 mGy-cm. Automated exposure control and iterative reconstruction technique w ere employed. COMPARISON: CT dated 04/27/2023 FINDINGS: Generalized atrophy. There are scattered mild periventricular and subcortical white matter changes, most likely related to small vessel ischemic disease (microangiopathy). No acute infarction, hemorrhage, mass or mass effect. There is intracranial atherosclerosis. There is mild mucosal thicke og of the ethmoid sinuses. Mastoids are pneumatized. No depressed skull fractures. IMPRESSION: 1. No acute intracranial abnormality. Reviewed, dictated and finalized at location A.
--- NOTE | 2023-06-14 15:46 | ED.FALL ---
HPI - Fall General Chief Complaint: Fall <ANITA Zhang Last Filed: 06/19/23 19:53> Stated Complaint: mult. falls <ANITA Zhang Last Filed: 06/19/23 19:53> Time Seen by Provider: 06/14/23 15:18 <ANITA Zhang Last Filed: 06/19/23 19:53> History of Present Illness HPI Narrative: 83-year-old male with history of CKD, hypertension, hyperlipidemia, Parkinson's and prostate cancer presents to emergency department with his son at bedside for multiple falls and weakness. Patient lives at home by himself. Son states he knows he has been falling frequently the past couple of days. States today the patient fell in the son tried to get a hold of him multiple times without success. He went over to the patient's house and found him on the ground. Unknown how long he had been on the ground. States that he is concerned he has a urinary tract infection because this is how he presents when he gets UTIs. The patient is altered and somnolent. He states he believes he has hit his head but is unsure be lost consciousness. He denies headache, vision changes, chest pain or shortness of breath, neck pain, abdominal pain, nausea vomiting, diarrhea, dysuria or hematuria. He is reporting pain to his low back from falling. He is wheelchair bound, however does use a lift assist device which is reportedly what he has been falling off of when it attempts to lift the patient. <ANITA Zhang Last Filed: 06/19/23 19:53> Related Data Home Medications: Home Medications Medication Instructions Recorded Confirmed aspirin 81 mg chewable tablet 81 mg PO DAILY 04/27/23 06/15/23 donepezil 10 mg tablet (Aricept) 10 mg PO DAILY 04/27/23 06/15/23 ropinirole 1 mg tablet 1.5 mg PO ACHS 04/27/23 06/15/23 metoprolol tartrate 25 mg tablet 12.5 mg PO BID 06/15/23 06/15/23 <ANITA Zhang Last Filed: 06/19/23 19:53> Allergies/Adverse Reactions: Allergies Allergy/AdvReac Type Severity Reaction Status Date / Time No Known Allergies Allergy Verified 11/06/22 15:44 <Marielena Alvarado PA-C - Last Filed: 06/19/23 19:53> Review of Systems Review of Systems: CONSTITUTIONAL: Denies fever, chills, or sweats. EYES: Denies visual changes, redness, or discharge. ENT: Denies rhinorrhea, congestion, sore throat, or otalgia. CARDIOVASCULAR: Denies chest pain, palpitations, or edema. RESPIRATORY: Denies cough or dyspnea. GASTROINTESTINAL: Denies abdominal pain, nausea, vomiting, or diarrhea. GENITOURINARY: Denies dysuria or hematuria. SKIN: Denies rash or itching. MUSCULOSKELETAL: Denies back pain, joint pain, or myalgia. NEUROLOGIC: See HPI PSYCHIATRIC: Denies anxiety or depression. <Marielena Alvarado PA-C - Last Filed: 06/19/23 19:53> [facility] Past Medical History Medical History: Medical History Benign prostatic hyperplasia Chronic anemia Chronic kidney disease, stage 3 Deep venous thrombosis Gastroesophageal reflux disease Hyperlipidemia Hypertension Overweight (BMI 25.0-29.9) Parkinsons disease Prostate cancer <Marielena Alvarado PA-C - Last Filed: 06/19/23 19:53> Surgical History Surgical History: Surgical History History of colonoscopy with polypectomy History of transurethral resection of prostate <Marielena Alvarado PA-C - Last Filed: 06/19/23 19:53> Family History Family History: Family History Father Family history of cardiovascular disease Family history of elevated blood lipids Diabetes mellitus Suicide Mother Family history of malignant neoplasm of breast in first degree relative Other Hypertension <Marielena Alvarado PA-C - Last Filed: 06/19/23 19:53> Social History Social History: Social History Social History: Surrogate medical decision maker: Jc Goins, son. Code status: Smoking packs per day: 3 Smoking cigarettes per day: 60.0 Years smoked: 11 Smoking pack-years: 33.00 Smoking status: Former smoker Tobacco type: cigars Second hand tobacco smoke exposure: No Alcohol intake: current Drinks per week: 1 Alcohol use details: Rare alcohol use. Substance use: never Substance use type: does not use Do You Feel Safe in your Home?: Yes Lack of Transportation: No Lack of Food: Never True Current Housing: I Have Housing Concerned About Future Housing: No Difficulty Paying Gas/Electric Bills: No Difficulty Paying for Meds: No Currently Unemployed: No Education: Associate Degree Difficulty w/ Childcare or Family Care: No Living arrangements: alone Additional living arrangements comments: son visits often; neighbor Torrey checks on him; patient has life alert Additional occupation/education comments: Worked in the [employer] and for the [employer] Spiritual care concerns: No <Marielena Alvarado PA-C - Last Filed: 06/19/23 19:53> Exam Narrative: GENERAL: Elderly male lying in exam bed, somnolent. He is arousable with verbal stimuli. Lethargic and weak HEAD: Normocephalic, atraumatic. EYES: PERRLA and EOMI. ENT: Nares clear, no rhinorrhea or epistaxis. Mucous membranes moist. NECK: No midline cervical spinous tenderness, step-offs or deformities. BACK: No thoracic spinous tenderness, step-offs or deformities. Tenderness to the lumbosacral spine on palpation. No step-offs or deformities. No overlying skin changes. CHEST: Clear to auscultation. No respiratory distress. HEART: Regular rate and rhythm. No murmur heard. Normal peripheral pulses. ABDOMEN: Soft, nontender, normoactive bowel sounds. No rebound, guarding rigidity. No CVA tenderness. Depends very wet, malodorous of urine. Beefy red rash in inguinal folds EXTREMITIES: Normal range of motion. 2+ pitting edema to bilateral lower extremities without overlying erythema or warmth. SKIN: See abdomen exam NEURO: No focal deficits. Alert and oriented x2. Moving all extremities spontaneously <Marielena Alvarado PA-C - Last Filed: 06/19/23 19:53> Course FOREIGN EXCHANGE CLERK/PA Physician Supervision I agree with midlevel documentation; I performed the medical decision making component of this evaluation. <Viviana Lane MD - Last Filed: 06/14/23 22:05> Vital Signs Vital signs: Vital Signs Temperature 97.9 F 06/14/23 15:08 Pulse Rate 98 06/14/23 15:08 Respiratory Rate 19 06/14/23 15:08 Blood Pressure 125/91 H 06/14/23 15:08 Pulse Oximetry 100 06/14/23 15:08 Oxygen Delivery Room Air 06/14/23 15:08 Temperature 97.3 F L 06/19/23 19:31 Pulse Rate 77 06/19/23 19:31 Respiratory Rate 18 06/19/23 19:31 Blood Pressure 117/67 06/19/23 19:31 Pulse Oximetry 97 06/19/23 19:31 Oxygen Delivery Room Air 06/19/23 08:00 <Marielena Alvarado PA-C - Last Filed: 06/19/23 19:53> Vital Signs Temperature 97.9 F 06/14/23 15:08 Pulse Rate 98 06/14/23 15:08 Respiratory Rate 19 06/14/23 15:08 Blood Pressure 125/91 H 06/14/23 15:08 Pulse Oximetry 100 06/14/23 15:08 Oxygen Delivery Room Air 06/14/23 15:08 Temperature 97.3 F L 06/19/23 19:31 Pulse Rate 77 06/19/23 19:31 Respiratory Rate 18 06/19/23 19:31 Blood Pressure 117/67 06/19/23 19:31 Pulse Oximetry 97 06/19/23 19:31 Oxygen Delivery Room Air 06/19/23 08:00 <Viviana Lane MD - Last Filed: 06/14/23 22:05> MDM - Fall MDM Narrative Medical decision making narrative: 83-year-old male presents to emergency department for frequent falls and concerns for urinary tract infection. See HPI for further history. Vitals stable. He is afebrile. He is very somnolent on exam, weak and poor appearing. Exam is significant for the above. CT of the brain shows no acute intracranial abnormality. 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 There is no acute osseous abnormality of the lumbar spine or pelvis. 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 Asymmetric masslike enlargement of the right seminal vesicle which raises concern for malignancy particularly if there is any prior history of prostate cancer. Patient does have a history of prostate cancer and follows with urologist, Dr. Salcedo. Chest x-ray shows no acute cardiopulmonary disease. CBC with a leukocytosis of 15.3, no bandemia. Hemoglobin normal at 14.5. Patient's CK is greater than 16,000. His chemistries reflect wrap does well with BUN of 37, AST of 494 and ALT of 88. Fortunately his creatinine is normal at 1.3. His UA also shows blood and ketones, however no RBCs are seen on microscopy, again consistent with rhabdo. Lactic acid is elevated at 3.3. TSH normal. Patient has fluids ongoing and Escalante catheter placed for I&Os. He does have pitting edema to bilateral lower extremities, however had a echo performed on 04/28/2023 which shows a normal EF of 65-70% and grade 1 diastolic dysfunction. Plan to admit the patient to the hospitalist for further hydration and management. Case discussed with the hospitalist Adriana HUTCHINS, who agrees to the plan for admission. Advises 100 mL per hour normal saline with concurrent 20 mg of Lasix b.i.d. to balance fluid overload with known CHF and rehydration. Workup discussed with family and patient at bedside. Patient signed Jc who is also his POA states patient is a DNR/DNI. <Marielena Alvarado PA-C - Last Filed: 06/19/23 19:53> Lab Data Result diagrams: 06/19/23 04:46 06/19/23 04:46 <Marielena Alvarado PA-C - Last Filed: 06/19/23 19:53> Labs: Lab Results 06/14/23 06/14/23 06/14/23 Range/Units 16:22 16:31 17:50 WBC 15.3 H (4.5-10.0) K/mm3 RBC 4.54 L (4.6-6.20) M/mm3 Hgb 14.5 D (14.0-18.0) g/dL Hct 43.3 (42.0-52.0) % MCV 95.4 (80-100) fl MCH 31.9 (26-34) pg MCHC 33.5 (32-36) g/dl RDW 13.2 (11.5-14.5) % Plt Count 267 (150-375) k/mm3 MPV 10.0 (7.4-10.4) fl Immature Gran % (Auto) 0.5 (0-0.5) % Neut % (Auto) 88.4 H (45.5-73.1) % Lymph % (Auto) 2.3 L (18.3-44.2) % Grayson % (Auto) 8.7 H (2.6-8.5) % Eos % (Auto) 0.0 (0-4.4) % Baso % (Auto) 0.1 L (0.2-1.2) % Lymph # (Auto) 0.35 L (0.9-3.2) K/mm3 Grayson # (Auto) 1.3 H (0.1-0.6) K/mm3 Eos # (Auto) 0.0 (0-0.3) K/mm3 Baso # (Auto) 0.0 (0.0-0.1) K/mm3 Abs Immat Gran (auto) 0.08 H (0.00-0.031) K/mm3 Absolute Neuts (auto) 13.5 H (1.3-6.7) K/mm3 Absolute Nucleated RBC 0.000 (0.0-0.012) K/mm3 Nucleated RBC % 0.0 (0.0-0.2) % PT 14.0 (11.1-14.7) Seconds INR 1.0 APTT 26.1 (22.3-36.8) Seconds Sodium 138 (137-145) mmol/L Potassium 4.2 (3.4-5.0) mmol/L Chloride 104 (98-107) mmol/L Carbon Dioxide 24 (22-30) mmol/L Anion Gap 10 (4-12) mmol/L BUN 37 H D (9-20) mg/dL Creatinine 1.30 (0.7-1.3) mg/dL Estim Creat Clear Calc 36 ml/min Estimated GFR 53 L (59 - ) Glucose 142 H (65-110) mg/dL POC Capillary Glucose (65-105) mg/dl Lactic Acid 3.3 H (0.7-2.0) mmol/L Calcium 10.1 (8.4-10.2) mg/dL Phosphorus (2.5-4.5) mg/dL Magnesium (1.6-2.3) mg/dL Total Bilirubin 1.0 (0.2-1.3) mg/dL AST 494 H (17-59) U/L ALT 88 H (6-50) U/L Alkaline Phosphatase 76 (38-126) U/L Total Creatine Kinase > 18958 H (55-170) U/L Troponin I 0.028 (0.000-0.034) ng/mL NT-Pro-B Natriuret Pep 165 H (19.9-100) pg/mL Total Protein 8.0 (6.3-8.2) g/dL Albumin 4.8 (3.5-5.1) g/dL TSH (Reflex) 1.650 (0.465-4.68) uIU/mL Urine Color Dark yellow (Yellow) Urine Appearance Clear (Clear) Urine pH 5.5 (5.0-9.0) Ur Specific [place]io 1.027 (1.001-1.035) Urine Protein 2+ H (Negative) mg/dL Urine Glucose (UA) Negative (Negative) mg/dL Urine Ketones 1+ H (Negative) mg/dL Ur Blood (Man) 3+ H (Negative) Urine Nitrate Negative (Negative) Urine Bilirubin Negative (Negative) Urine Urobilinogen 0.2 (<2.0) mg/dL Leukocyte Esterase Rfl Negative (Negative) ALVARO/UL Urine RBC 0-2 (0-2) /hpf Urine WBC 0-5 (0-3) /hpf Ur Squamous Epith Cells None seen (Few) /hpf Urine Bacteria None seen /hpf Urine Casts 3-5 Influenza A (RT-PCR) Negative (Negative) Influenza B (RT-PCR) Negative (Negative) RSV (RT-PCR) Negative (Negative) SARS-CoV-2 RNA (RT-PCR) Negative (Negative) 06/14/23 06/15/23 06/15/23 Range/Units 20:11 07:16 08:25 WBC 12.5 H (4.5-10.0) K/mm3 RBC 3.73 L (4.6-6.20) M/mm3 Hgb 11.8 L (14.0-18.0) g/dL Hct 37.3 L (42.0-52.0) % MCV 100.0 (80-100) fl MCH 31.6 (26-34) pg MCHC 31.6 L (32-36) g/dl RDW 13.4 (11.5-14.5) % Plt Count 225 (150-375) k/mm3 MPV 9.9 (7.4-10.4) fl Immature Gran % (Auto) 0.4 (0-0.5) % Neut % (Auto) 80.1 H (45.5-73.1) % Lymph % (Auto) 7.7 L (18.3-44.2) % Grayson % (Auto) 11.7 H (2.6-8.5) % Eos % (Auto) 0.0 (0-4.4) % Baso % (Auto) 0.1 L (0.2-1.2) % Lymph # (Auto) 0.96 (0.9-3.2) K/mm3 Grayson # (Auto) 1.5 H (0.1-0.6) K/mm3 Eos # (Auto) 0.0 (0-0.3) K/mm3 Baso # (Auto) 0.0 (0.0-0.1) K/mm3 Abs Immat Gran (auto) 0.05 H (0.00-0.031) K/mm3 Absolute Neuts (auto) 10.0 H (1.3-6.7) K/mm3 Absolute Nucleated RBC 0.000 (0.0-0.012) K/mm3 Nucleated RBC % 0.0 (0.0-0.2) % PT (11.1-14.7) Seconds INR APTT (22.3-36.8) Seconds Sodium 139 (137-145) mmol/L Potassium 4.1 (3.4-5.0) mmol/L Chloride 112 H (98-107) mmol/L Carbon Dioxide 22 (22-30) mmol/L Anion Gap 5 (4-12) mmol/L BUN 32 H (9-20) mg/dL Creatinine 1.20 (0.7-1.3) mg/dL Estim Creat Clear Calc 40 ml/min Estimated GFR 58 L (59 - ) Glucose 106 (65-110) mg/dL POC Capillary Glucose 82 (65-105) mg/dl Lactic Acid 1.7 (0.7-2.0) mmol/L Calcium 8.8 (8.4-10.2) mg/dL Phosphorus (2.5-4.5) mg/dL Magnesium (1.6-2.3) mg/dL Total Bilirubin (0.2-1.3) mg/dL AST (17-59) U/L ALT (6-50) U/L Alkaline Phosphatase (38-126) U/L Total Creatine Kinase > 14257 H (55-170) U/L Troponin I (0.000-0.034) ng/mL NT-Pro-B Natriuret Pep (19.9-100) pg/mL Total Protein (6.3-8.2) g/dL Albumin (3.5-5.1) g/dL TSH (Reflex) (0.465-4.68) uIU/mL Urine Color (Yellow) Urine Appearance (Clear) Urine pH (5.0-9.0) Ur Specific [place] (1.001-1.035) Urine Protein (Negative) mg/dL Urine Glucose (UA) (Negative) mg/dL Urine Ketones (Negative) mg/dL Ur Blood (Man) (Negative) Urine Nitrate (Negative) Urine Bilirubin (Negative) Urine Urobilinogen (<2.0) mg/dL Leukocyte Esterase Rfl (Negative) ALVARO/UL Urine RBC (0-2) /hpf Urine WBC (0-3) /hpf Ur Squamous Epith Cells (Few) /hpf Urine Bacteria /hpf Urine Casts Influenza A (RT-PCR) (Negative) Influenza B (RT-PCR) (Negative) RSV (RT-PCR) (Negative) SARS-CoV-2 RNA (RT-PCR) (Negative) 06/15/23 06/15/23 06/15/23 Range/Units 12:03 16:53 20:12 WBC (4.5-10.0) K/mm3 RBC (4.6-6.20) M/mm3 Hgb (14.0-18.0) g/dL Hct (42.0-52.0) % MCV (80-100) fl MCH (26-34) pg MCHC (32-36) g/dl RDW (11.5-14.5) % Plt Count (150-375) k/mm3 MPV (7.4-10.4) fl Immature Gran % (Auto) (0-0.5) % Neut % (Auto) (45.5-73.1) % Lymph % (Auto) (18.3-44.2) % Grayson % (Auto) (2.6-8.5) % Eos % (Auto) (0-4.4) % Baso % (Auto) (0.2-1.2) % Lymph # (Auto) (0.9-3.2) K/mm3 Grayson # (Auto) (0.1-0.6) K/mm3 Eos # (Auto) (0-0.3) K/mm3 Baso # (Auto) (0.0-0.1) K/mm3 Abs Immat Gran (auto) (0.00-0.031) K/mm3 Absolute Neuts (auto) (1.3-6.7) K/mm3 Absolute Nucleated RBC (0.0-0.012) K/mm3 Nucleated RBC % (0.0-0.2) % PT (11.1-14.7) Seconds INR APTT (22.3-36.8) Seconds Sodium (137-145) mmol/L Potassium (3.4-5.0) mmol/L Chloride (98-107) mmol/L Carbon Dioxide (22-30) mmol/L Anion Gap (4-12) mmol/L BUN (9-20) mg/dL Creatinine (0.7-1.3) mg/dL Estim Creat Clear Calc ml/min Estimated GFR (59 - ) Glucose (65-110) mg/dL POC Capillary Glucose 75 125 H 140 H (65-105) mg/dl Lactic Acid (0.7-2.0) mmol/L Calcium (8.4-10.2) mg/dL Phosphorus (2.5-4.5) mg/dL Magnesium (1.6-2.3) mg/dL Total Bilirubin (0.2-1.3) mg/dL AST (17-59) U/L ALT (6-50) U/L Alkaline Phosphatase (38-126) U/L Total Creatine Kinase (55-170) U/L Troponin I (0.000-0.034) ng/mL NT-Pro-B Natriuret Pep (19.9-100) pg/mL Total Protein (6.3-8.2) g/dL Albumin (3.5-5.1) g/dL TSH (Reflex) (0.465-4.68) uIU/mL Urine Color (Yellow) Urine Appearance (Clear) Urine pH (5.0-9.0) Ur Specific [place] (1.001-1.035) Urine Protein (Negative) mg/dL Urine Glucose (UA) (Negative) mg/dL Urine Ketones (Negative) mg/dL Ur Blood (Man) (Negative) Urine Nitrate (Negative) Urine Bilirubin (Negative) Urine Urobilinogen (<2.0) mg/dL Leukocyte Esterase Rfl (Negative) ALVARO/UL Urine RBC (0-2) /hpf Urine WBC (0-3) /hpf Ur Squamous Epith Cells (Few) /hpf Urine Bacteria /hpf Urine Casts Influenza A (RT-PCR) (Negative) Influenza B (RT-PCR) (Negative) RSV (RT-PCR) (Negative) SARS-CoV-2 RNA (RT-PCR) (Negative) 06/16/23 06/16/23 Range/Units 05:15 08:21 WBC 9.8 (4.5-10.0) K/mm3 RBC 3.09 L (4.6-6.20) M/mm3 Hgb 9.7 L (14.0-18.0) g/dL Hct 30.6 L (42.0-52.0) % MCV 99.0 (80-100) fl MCH 31.4 (26-34) pg MCHC 31.7 L (32-36) g/dl RDW 13.8 (11.5-14.5) % Plt Count 177 (150-375) k/mm3 MPV 10.4 (7.4-10.4) fl Immature Gran % (Auto) 0.5 (0-0.5) % Neut % (Auto) 72.3 (45.5-73.1) % Lymph % (Auto) 14.2 L (18.3-44.2) % Grayson % (Auto) 12.6 H (2.6-8.5) % Eos % (Auto) 0.2 (0-4.4) % Baso % (Auto) 0.2 (0.2-1.2) % Lymph # (Auto) 1.40 (0.9-3.2) K/mm3 Grayson # (Auto) 1.2 H (0.1-0.6) K/mm3 Eos # (Auto) 0.0 (0-0.3) K/mm3 Baso # (Auto) 0.0 (0.0-0.1) K/mm3 Abs Immat Gran (auto) 0.05 H (0.00-0.031) K/mm3 Absolute Neuts (auto) 7.1 H (1.3-6.7) K/mm3 Absolute Nucleated RBC 0.000 (0.0-0.012) K/mm3 Nucleated RBC % 0.0 (0.0-0.2) % PT (11.1-14.7) Seconds INR APTT (22.3-36.8) Seconds Sodium 138 (137-145) mmol/L Potassium 3.3 L (3.4-5.0) mmol/L Chloride 108 H (98-107) mmol/L Carbon Dioxide 25 (22-30) mmol/L Anion Gap 5 (4-12) mmol/L BUN 33 H (9-20) mg/dL Creatinine 1.30 (0.7-1.3) mg/dL Estim Creat Clear Calc 37 ml/min Estimated GFR 53 L (59 - ) Glucose 102 (65-110) mg/dL POC Capillary Glucose 100 (65-105) mg/dl Lactic Acid (0.7-2.0) mmol/L Calcium 8.3 L (8.4-10.2) mg/dL Phosphorus 3.5 (2.5-4.5) mg/dL Magnesium 2.2 (1.6-2.3) mg/dL Total Bilirubin (0.2-1.3) mg/dL AST (17-59) U/L ALT (6-50) U/L Alkaline Phosphatase (38-126) U/L Total Creatine Kinase > 33409 H (55-170) U/L Troponin I (0.000-0.034) ng/mL NT-Pro-B Natriuret Pep (19.9-100) pg/mL Total Protein (6.3-8.2) g/dL Albumin 2.9 L (3.5-5.1) g/dL TSH (Reflex) (0.465-4.68) uIU/mL Urine Color (Yellow) Urine Appearance (Clear) Urine pH (5.0-9.0) Ur Specific [place] (1.001-1.035) Urine Protein (Negative) mg/dL Urine Glucose (UA) (Negative) mg/dL Urine Ketones (Negative) mg/dL Ur Blood (Man) (Negative) Urine Nitrate (Negative) Urine Bilirubin (Negative) Urine Urobilinogen (<2.0) mg/dL Leukocyte Esterase Rfl (Negative) ALVARO/UL Urine RBC (0-2) /hpf Urine WBC (0-3) /hpf Ur Squamous Epith Cells (Few) /hpf Urine Bacteria /hpf Urine Casts Influenza A (RT-PCR) (Negative) Influenza B (RT-PCR) (Negative) RSV (RT-PCR) (Negative) SARS-CoV-2 RNA (RT-PCR) (Negative) Urine Characteristics Clear <Marielena Alvarado PA-C - Last Filed: 06/19/23 19:53> Lab Results 06/14/23 06/14/23 06/14/23 Range/Units 16:22 16:31 17:50 WBC 15.3 H (4.5-10.0) K/mm3 RBC 4.54 L (4.6-6.20) M/mm3 Hgb 14.5 D (14.0-18.0) g/dL Hct 43.3 (42.0-52.0) % MCV 95.4 (80-100) fl MCH 31.9 (26-34) pg MCHC 33.5 (32-36) g/dl RDW 13.2 (11.5-14.5) % Plt Count 267 (150-375) k/mm3 MPV 10.0 (7.4-10.4) fl Immature Gran % (Auto) 0.5 (0-0.5) % Neut % (Auto) 88.4 H (45.5-73.1) % Lymph % (Auto) 2.3 L (18.3-44.2) % Grayson % (Auto) 8.7 H (2.6-8.5) % Eos % (Auto) 0.0 (0-4.4) % Baso % (Auto) 0.1 L (0.2-1.2) % Lymph # (Auto) 0.35 L (0.9-3.2) K/mm3 Gr[place] # (Auto) 1.3 H (0.1-0.6) K/mm3 Eos # (Auto) 0.0 (0-0.3) K/mm3 Baso # (Auto) 0.0 (0.0-0.1) K/mm3 Abs Immat Gran (auto) 0.08 H (0.00-0.031) K/mm3 Absolute Neuts (auto) 13.5 H (1.3-6.7) K/mm3 Absolute Nucleated RBC 0.000 (0.0-0.012) K/mm3 Nucleated RBC % 0.0 (0.0-0.2) % PT 14.0 (11.1-14.7) Seconds INR 1.0 APTT 26.1 (22.3-36.8) Seconds Sodium 138 (137-145) mmol/L Potassium 4.2 (3.4-5.0) mmol/L Chloride 104 (98-107) mmol/L Carbon Dioxide 24 (22-30) mmol/L Anion Gap 10 (4-12) mmol/L BUN 37 H D (9-20) mg/dL Creatinine 1.30 (0.7-1.3) mg/dL Estim Creat Clear Calc 36 ml/min Estimated GFR 53 L (59 - ) Glucose 142 H (65-110) mg/dL POC Capillary Glucose (65-105) mg/dl Lactic Acid 3.3 H (0.7-2.0) mmol/L Calcium 10.1 (8.4-10.2) mg/dL Phosphorus (2.5-4.5) mg/dL Magnesium (1.6-2.3) mg/dL Total Bilirubin 1.0 (0.2-1.3) mg/dL AST 494 H (17-59) U/L ALT 88 H (6-50) U/L Alkaline Phosphatase 76 (38-126) U/L Total Creatine Kinase > 17583 H (55-170) U/L Troponin I 0.028 (0.000-0.034) ng/mL NT-Pro-B Natriuret Pep 165 H (19.9-100) pg/mL Total Protein 8.0 (6.3-8.2) g/dL Albumin 4.8 (3.5-5.1) g/dL TSH (Reflex) 1.650 (0.465-4.68) uIU/mL Urine Color Dark yellow (Yellow) Urine Appearance Clear (Clear) Urine pH 5.5 (5.0-9.0) Ur Specific [place] 1.027 (1.001-1.035) Urine Protein 2+ H (Negative) mg/dL Urine Glucose (UA) Negative (Negative) mg/dL Urine Ketones 1+ H (Negative) mg/dL Ur Blood (Man) 3+ H (Negative) Urine Nitrate Negative (Negative) Urine Bilirubin Negative (Negative) Urine Urobilinogen 0.2 (<2.0) mg/dL Leukocyte Esterase Rfl Negative (Negative) ALVARO/UL Urine RBC 0-2 (0-2) /hpf Urine WBC 0-5 (0-3) /hpf Ur Squamous Epith Cells None seen (Few) /hpf Urine Bacteria None seen /hpf Urine Casts 3-5 Influenza A (RT-PCR) Negative (Negative) Influenza B (RT-PCR) Negative (Negative) RSV (RT-PCR) Negative (Negative) SARS-CoV-2 RNA (RT-PCR) Negative (Negative) 06/14/23 06/15/23 06/15/23 Range/Units 20:11 07:16 08:25 WBC 12.5 H (4.5-10.0) K/mm3 RBC 3.73 L (4.6-6.20) M/mm3 Hgb 11.8 L (14.0-18.0) g/dL Hct 37.3 L (42.0-52.0) % MCV 100.0 (80-100) fl MCH 31.6 (26-34) pg MCHC 31.6 L (32-36) g/dl RDW 13.4 (11.5-14.5) % Plt Count 225 (150-375) k/mm3 MPV 9.9 (7.4-10.4) fl Immature Gran % (Auto) 0.4 (0-0.5) % Neut % (Auto) 80.1 H (45.5-73.1) % Lymph % (Auto) 7.7 L (18.3-44.2) % Grayson % (Auto) 11.7 H (2.6-8.5) % Eos % (Auto) 0.0 (0-4.4) % Baso % (Auto) 0.1 L (0.2-1.2) % Lymph # (Auto) 0.96 (0.9-3.2) K/mm3 Grayson # (Auto) 1.5 H (0.1-0.6) K/mm3 Eos # (Auto) 0.0 (0-0.3) K/mm3 Baso # (Auto) 0.0 (0.0-0.1) K/mm3 Abs Immat Gran (auto) 0.05 H (0.00-0.031) K/mm3 Absolute Neuts (auto) 10.0 H (1.3-6.7) K/mm3 Absolute Nucleated RBC 0.000 (0.0-0.012) K/mm3 Nucleated RBC % 0.0 (0.0-0.2) % PT (11.1-14.7) Seconds INR APTT (22.3-36.8) Seconds Sodium 139 (137-145) mmol/L Potassium 4.1 (3.4-5.0) mmol/L Chloride 112 H (98-107) mmol/L Carbon Dioxide 22 (22-30) mmol/L Anion Gap 5 (4-12) mmol/L BUN 32 H (9-20) mg/dL Creatinine 1.20 (0.7-1.3) mg/dL Estim Creat Clear Calc 40 ml/min Estimated GFR 58 L (59 - ) Glucose 106 (65-110) mg/dL POC Capillary Glucose 82 (65-105) mg/dl Lactic Acid 1.7 (0.7-2.0) mmol/L Calcium 8.8 (8.4-10.2) mg/dL Phosphorus (2.5-4.5) mg/dL Magnesium (1.6-2.3) mg/dL Total Bilirubin (0.2-1.3) mg/dL AST (17-59) U/L ALT (6-50) U/L Alkaline Phosphatase (38-126) U/L Total Creatine Kinase > 15082 H (55-170) U/L Troponin I (0.000-0.034) ng/mL NT-Pro-B Natriuret Pep (19.9-100) pg/mL Total Protein (6.3-8.2) g/dL Albumin (3.5-5.1) g/dL TSH (Reflex) (0.465-4.68) uIU/mL Urine Color (Yellow) Urine Appearance (Clear) Urine pH (5.0-9.0) Ur Specific [place] (1.001-1.035) Urine Protein (Negative) mg/dL Urine Glucose (UA) (Negative) mg/dL Urine Ketones (Negative) mg/dL Ur Blood (Man) (Negative) Urine Nitrate (Negative) Urine Bilirubin (Negative) Urine Urobilinogen (<2.0) mg/dL Leukocyte Esterase Rfl (Negative) ALVARO/UL Urine RBC (0-2) /hpf Urine WBC (0-3) /hpf Ur Squamous Epith Cells (Few) /hpf Urine Bacteria /hpf Urine Casts Influenza A (RT-PCR) (Negative) Influenza B (RT-PCR) (Negative) RSV (RT-PCR) (Negative) SARS-CoV-2 RNA (RT-PCR) (Negative) 06/15/23 06/15/23 06/15/23 Range/Units 12:03 16:53 20:12 WBC (4.5-10.0) K/mm3 RBC (4.6-6.20) M/mm3 Hgb (14.0-18.0) g/dL Hct (42.0-52.0) % MCV (80-100) fl MCH (26-34) pg MCHC (32-36) g/dl RDW (11.5-14.5) % Plt Count (150-375) k/mm3 MPV (7.4-10.4) fl Immature Gran % (Auto) (0-0.5) % Neut % (Auto) (45.5-73.1) % Lymph % (Auto) (18.3-44.2) % Gr[place] % (Auto) (2.6-8.5) % Eos % (Auto) (0-4.4) % Baso % (Auto) (0.2-1.2) % Lymph # (Auto) (0.9-3.2) K/mm3 [place] # (Auto) (0.1-0.6) K/mm3 Eos # (Auto) (0-0.3) K/mm3 Baso # (Auto) (0.0-0.1) K/mm3 Abs Immat Gran (auto) (0.00-0.031) K/mm3 Absolute Neuts (auto) (1.3-6.7) K/mm3 Absolute Nucleated RBC (0.0-0.012) K/mm3 Nucleated RBC % (0.0-0.2) % PT (11.1-14.7) Seconds INR APTT (22.3-36.8) Seconds Sodium (137-145) mmol/L Potassium (3.4-5.0) mmol/L Chloride (98-107) mmol/L Carbon Dioxide (22-30) mmol/L Anion Gap (4-12) mmol/L BUN (9-20) mg/dL Creatinine (0.7-1.3) mg/dL Estim Creat Clear Calc ml/min Estimated GFR (59 - ) Glucose (65-110) mg/dL POC Capillary Glucose 75 125 H 140 H (65-105) mg/dl Lactic Acid (0.7-2.0) mmol/L Calcium (8.4-10.2) mg/dL Phosphorus (2.5-4.5) mg/dL Magnesium (1.6-2.3) mg/dL Total Bilirubin (0.2-1.3) mg/dL AST (17-59) U/L ALT (6-50) U/L Alkaline Phosphatase (38-126) U/L Total Creatine Kinase (55-170) U/L Troponin I (0.000-0.034) ng/mL NT-Pro-B Natriuret Pep (19.9-100) pg/mL Total Protein (6.3-8.2) g/dL Albumin (3.5-5.1) g/dL TSH (Reflex) (0.465-4.68) uIU/mL Urine Color (Yellow) Urine Appearance (Clear) Urine pH (5.0-9.0) Ur Specific [place] (1.001-1.035) Urine Protein (Negative) mg/dL Urine Glucose (UA) (Negative) mg/dL Urine Ketones (Negative) mg/dL Ur Blood (Man) (Negative) Urine Nitrate (Negative) Urine Bilirubin (Negative) Urine Urobilinogen (<2.0) mg/dL Leukocyte Esterase Rfl (Negative) ALVARO/UL Urine RBC (0-2) /hpf Urine WBC (0-3) /hpf Ur Squamous Epith Cells (Few) /hpf Urine Bacteria /hpf Urine Casts Influenza A (RT-PCR) (Negative) Influenza B (RT-PCR) (Negative) RSV (RT-PCR) (Negative) SARS-CoV-2 RNA (RT-PCR) (Negative) 06/16/23 06/16/23 Range/Units 05:15 08:21 WBC 9.8 (4.5-10.0) K/mm3 RBC 3.09 L (4.6-6.20) M/mm3 Hgb 9.7 L (14.0-18.0) g/dL Hct 30.6 L (42.0-52.0) % MCV 99.0 (80-100) fl MCH 31.4 (26-34) pg MCHC 31.7 L (32-36) g/dl RDW 13.8 (11.5-14.5) % Plt Count 177 (150-375) k/mm3 MPV 10.4 (7.4-10.4) fl Immature Gran % (Auto) 0.5 (0-0.5) % Neut % (Auto) 72.3 (45.5-73.1) % Lymph % (Auto) 14.2 L (18.3-44.2) % [place] % (Auto) 12.6 H (2.6-8.5) % Eos % (Auto) 0.2 (0-4.4) % Baso % (Auto) 0.2 (0.2-1.2) % Lymph # (Auto) 1.40 (0.9-3.2) K/mm3 [place] # (Auto) 1.2 H (0.1-0.6) K/mm3 Eos # (Auto) 0.0 (0-0.3) K/mm3 Baso # (Auto) 0.0 (0.0-0.1) K/mm3 Abs Immat Gran (auto) 0.05 H (0.00-0.031) K/mm3 Absolute Neuts (auto) 7.1 H (1.3-6.7) K/mm3 Absolute Nucleated RBC 0.000 (0.0-0.012) K/mm3 Nucleated RBC % 0.0 (0.0-0.2) % PT (11.1-14.7) Seconds INR APTT (22.3-36.8) Seconds Sodium 138 (137-145) mmol/L Potassium 3.3 L (3.4-5.0) mmol/L Chloride 108 H (98-107) mmol/L Carbon Dioxide 25 (22-30) mmol/L Anion Gap 5 (4-12) mmol/L BUN 33 H (9-20) mg/dL Creatinine 1.30 (0.7-1.3) mg/dL Estim Creat Clear Calc 37 ml/min Estimated GFR 53 L (59 - ) Glucose 102 (65-110) mg/dL POC Capillary Glucose 100 (65-105) mg/dl Lactic Acid (0.7-2.0) mmol/L Calcium 8.3 L (8.4-10.2) mg/dL Phosphorus 3.5 (2.5-4.5) mg/dL Magnesium 2.2 (1.6-2.3) mg/dL Total Bilirubin (0.2-1.3) mg/dL AST (17-59) U/L ALT (6-50) U/L Alkaline Phosphatase (38-126) U/L Total Creatine Kinase > 82082 H (55-170) U/L Troponin I (0.000-0.034) ng/mL NT-Pro-B Natriuret Pep (19.9-100) pg/mL Total Protein (6.3-8.2) g/dL Albumin 2.9 L (3.5-5.1) g/dL TSH (Reflex) (0.465-4.68) uIU/mL Urine Color (Yellow) Urine Appearance (Clear) Urine pH (5.0-9.0) Ur Specific [place] (1.001-1.035) Urine Protein (Negative) mg/dL Urine Glucose (UA) (Negative) mg/dL Urine Ketones (Negative) mg/dL Ur Blood (Man) (Negative) Urine Nitrate (Negative) Urine Bilirubin (Negative) Urine Urobilinogen (<2.0) mg/dL Leukocyte Esterase Rfl (Negative) ALVARO/UL Urine RBC (0-2) /hpf Urine WBC (0-3) /hpf Ur Squamous Epith Cells (Few) /hpf Urine Bacteria /hpf Urine Casts Influenza A (RT-PCR) (Negative) Influenza B (RT-PCR) (Negative) RSV (RT-PCR) (Negative) SARS-CoV-2 RNA (RT-PCR) (Negative) Urine Characteristics Clear <Viviana Lane MD - Last Filed: 06/14/23 22:05> Discharge Plan Discharge Clinical Impression: Generalized weakness, Frequent falls, Hypertrophy of seminal vesicle Rhabdomyolysis Qualifiers: Rhabdomyolysis type: traumatic Encounter type: initial encounter Qualified Code(s): T79.6XXA - Traumatic ischemia of muscle, initial encounter Altered mental status Qualifiers: Altered mental status type: somnolence Qualified Code(s): R40.0 - Somnolence <Marielena Alvarado PA-C - Last Filed: 06/19/23 19:53> Patient Disposition: Still a Patient <Marielena Alvarado PA-C - Last Filed: 06/19/23 19:53> Condition: Stable <Marielena Alvarado PA-C - Last Filed: 06/19/23 19:53>
--- NOTE | 2023-06-14 16:36 | ECG_ITS ---
Measurements Intervals [place] Rate: 72 P: 35 MD: 170 QRS: -16 QRSD: 90 T: 3 QT: 387 Avg RR 829 QTc: 411 QTcB 425 QTcF 411 Interpretive Statements SINUS RHYTHM LOW QRS VOLTAGE IN EXTREMITY LEADS [QRS DEFLECTION < 0.5 mV IN LIMB LEADS] BORDERLINE ECG SEE SCANNED COPY FOR SIGNATURE MTDD
[2023-06-14 16:44] LABS: Basophils Percent Auto 0.1 % (0.2-1.2); Hematocrit 43.3 % (42.0-52.0); Hemoglobin 14.5 g/dL (14.0-18.0); Immature Granulocyte Absolute 0.08 K/mm3 (0.00-0.031); Immature Granulocyte Percent A 0.5 % (0-0.5); Lymphocytes Absolute Auto 0.35 K/mm3 (0.9-3.2); Lymphocytes Percent Auto 2.3 % (18.3-44.2); Mean Corpuscular HGB Conc 33.5 g/dl (32-36); Mean Corpuscular Hemoglobin 31.9 pg (26-34); Mean Corpuscular Volume 95.4 fl (80-100); Monocytes Absolute Auto 1.3 K/mm3 (0.1-0.6); Monocytes Percent Auto 8.7 % (2.6-8.5); Neutrophils Absolute Auto 13.5 K/mm3 (1.3-6.7); Neutrophils Percent Auto 88.4 % (45.5-73.1); Platelet Count Result 267 k/mm3 (150-375); Red Blood Count 4.54 M/mm3 (4.6-6.20); Red Cell Distribution Width 13.2 % (11.5-14.5); White Blood Count 15.3 K/mm3 (4.5-10.0)
[2023-06-14 16:54] LABS: Lactic Acid Reflex 3.3 mmol/L (0.7-2.0)
[2023-06-14 17:06] LABS: Partial Thromboplastin Time 26.1 Seconds (22.3-36.8)
[2023-06-14 17:07] LABS: Alanine Aminotransferase 88 U/L (6-50); Albumin Level 4.8 g/dL (3.5-5.1); Alkaline Phosphatase 76 U/L (38-126); Anion Gap 10 mmol/L (4-12); Aspartate Amino Transferase 494 U/L (17-59); Blood Urea Nitrogen 37 mg/dL (9-20); Calcium 10.1 mg/dL (8.4-10.2); Carbon Dioxide 24 mmol/L (22-30); Chloride 104 mmol/L (98-107); Estimated CRCL calculation 36 ml/min; Estimated Glomerular Filt Rate 53; Glucose 142 mg/dL (65-110); Potassium 4.2 mmol/L (3.4-5.0); Sodium 138 mmol/L (137-145)
[2023-06-14] MEDS: SODIUM CHLORIDE 0.9% IV 1,000 ML 999 ML IV CONT ×2 (17:09→18:25)
[2023-06-14 17:23] LABS: Appearance Urine Clear (Clear); Bacteria Urine None Seen /hpf; Bilirubin Urine Negative (Negative); Blood Urine 3+ (Negative); Color Urine Dark Yellow (Yellow); Glucose Urine UA Negative (Negative); Ketones Urine 1+ mg/dL (Negative); Leukocyte Esterase Ur Negative LEU/UL (Negative); Nitrate Urine Negative (Negative); Protein Urine 2+ mg/dL (Negative); RBC Urine 0-2 /hpf (0-2); Specific Grav Ur 1.027 (1.001-1.035); Squamous Epithelial Cell Urine None Seen /hpf (Few); Urobilinogen Urine 0.2 mg/dL (<2.0); WBC Urine 0-5 /hpf (0-3); pH Urine 5.5 (5.0-9.0)
[2023-06-14 17:29] LABS: Add Urine Microscopic? YES
[2023-06-14 17:34] LABS: Creatine Kinase > 16000 U/L (55-170)
[2023-06-14 18:09] LABS: NT Pro B Type Natriuretic Pept 165 pg/mL (19.9-100); Troponin I 0.028 ng/mL (0.000-0.034)
[2023-06-14 18:39] LABS: Influenza A QL RT-PCR Negative (Negative); Influenza B QL RT-PCR Negative (Negative); RSV RNA, RT-PCR Negative (Negative); SARS-CoV-2 RNA PCR Negative (Negative)
[2023-06-14 19:42] LABS: Reflex Lactic Acid Yes or No Add Lactic
[2023-06-14] MEDS: SODIUM CHLORIDE 0.9% IV 1,000 ML 100 ML IV CONT (19:49)
--- NOTE | 2023-06-14 20:23 | PC.NURSE ---
princess fontaine - hydralazing 10mg iv push
[2023-06-14 20:31] LABS: Lactic Acid 1.7 mmol/L (0.7-2.0)
--- NOTE | 2023-06-14 20:31 | P.HP_ITS ---
H&P: HPI History of Present Illness Date/Time: 06/14/23 20:31 Chief Complaint: FALL Narrative: THIS IS AN 83-YEAR-OLD MALE WITH PAST MEDICAL HISTORY SIGNIFICANT FOR BENIGN PROSTATIC HYPERPLASIA, CHRONIC ANEMIA CHRONIC KIDNEY DISEASE , GERD, HYPERLIPIDEMIA HYPERTENSION PARKINSON'S DISEASE PROSTATE CANCER. WAS BROUGHT TO THE EMERGENCY ROOM FOR EVALUATION DUE AFTER HAVING RECURRENT FALLS EXAMINATION: CT brain wo con DATE: 06/14/2023 16:08 INDICATION: Status post fall. TECHNIQUE: Computed tomography (CT) of the head was performed without intravenous contrast. The dose-length product was 681.00 mGy-cm. Automated exposure control and iterative reconstruction technique were employed. COMPARISON: CT dated 04/27/2023 FINDINGS: Generalized atrophy. There are scattered mild periventricular and subcortical white matter changes, most likely related to small vessel ischemic disease (microangiopathy). No acute infarction, hemorrhage, mass or mass effect. There is intracranial atherosclerosis. There is mild mucosal thickening of the ethmoid sinuses. Mastoids are pneumatized. No depressed skull fractures. IMPRESSION: 1. No acute intracranial abnormality. XR chest 1V portable 06/14/2023 16:12 Indication: Altered mental status Procedure: AP portable chest Comparison: Comparison to multiple prior studies sequentially, with oldest reviewed study dated? 01/07/2022. Findings: Borderline heart size. There is ectasia of the aorta. No focal air space disease, pulmonary edema, pleural effusion or suspected pneumothorax. Impression: 1: No acute cardiopulmonary disease. EXAMINATION: CT pelvis wo con, CT lumbar spine wo con DATE: 06/14/2023 16:09 INDICATION: Fall with low back pain TECHNIQUE: 1. Computed tomography (CT) of the lumbar spine was performed without intravenous contrast. Sagittal and coronal reconstructions were performed. Automated exposure control and iterative reconstruction technique were employed. The dose-length product was 1099.53 mGy-cm. 2. CT of the pelvis was performed without intravenous contrast. Sagittal and coronal reconstructions were performed. The dose-length product was 271.83 mGy- cm. COMPARISON: CT abdomen and pelvis dated 11/06/2022 FINDINGS: Lumbar spine: 15 degrees lumbar levoscoliosis. L5 spondylolysis with bilateral pars interarticularis defects and 10 mm anterolisthesis L5 on S1. 1-2 mm retrolisthesis L1 on L2. Chronic appearing mild likely physiologic anterior wedging at T12. Lumbar vertebral body heights are normal. No fractures. Severe disc height loss at L5-S1. Moderate disc height loss with vacuum phenomena at L1-L2 and moderate right-sided predominant disc height loss at L2-L3. Mild disc height loss at L3-L4 and at multiple levels in the visualized lower thoracic spine. Mild respiratory motion and dependent atelectasis at the posterior sulci of the lungs. The paravertebral soft tissues are unremarkable. The following disc levels are specifically discussed: T11-T12: There is mild bilateral facet joint osteoarthritis. There is no neural foraminal stenosis. There is no central canal stenosis. T12-L1: There is mild bilateral facet joint osteoarthritis. There is mild right neural foraminal stenosis. There is no central canal stenosis. L1-L2: Disc is mildly bulging. There is mild bilateral facet joint osteoarthritis. There is moderate left and moderate to severe right neural foraminal stenosis. There is mild central canal stenosis. L2-L3: Mild posterior disc osteophyte complex. There is mild bilateral facet joint osteoarthritis. There is moderate bilateral neural foraminal stenosis. There is mild central canal stenosis. L3-L4: Disc is bulging. There is moderate right and mild to moderate left facet joint osteoarthritis. There is moderate bilateral neural foraminal stenosis. There is moderate central canal stenosis. L4-L5: Disc is bulging. There is moderate right and severe left facet joint osteoarthritis. There is mild left and moderate right neural foraminal stenosis. There is mild central canal stenosis. L5-S1: Disc does not extend beyond the more posterior S1 endplate margin. In addition to the bilateral pars intra-articular is defects there is moderate bilateral facet osteoarthritis. There is severe right and moderate to severe left neural foraminal stenosis. There is no central canal stenosis. Pelvis: Alignment is normal. No fracture or suspected osteonecrosis. Polyarticular osteoarthritis, mild to moderate at the left hip and bilateral sacroiliac joints and moderate severity at the right hip. Mild diverticulosis along the descending and sigmoid colon without adjacent from trace stranding to suggest diverticulitis. Suggestion of prior transurethral prostatectomy. There is prominent asymmetric enlargement of the right seminal vesicle. No free fluid in the pelvis. No pathologically enlarged pelvic or inguinal lymphadenopathy. IMPRESSION: 1. Severe lower lumbar predominant spondylosis. 2. 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 No acute osseous abnormality at the lumbar spine or pelvis. 3. 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 Review of Systems Review of Systems: ROS unobtainable: Yes unobtainable due to mental status COUNTS INCLUDE 234 BEDS AT THE [facility] Past Medical History Medical History Benign prostatic hyperplasia Chronic anemia Chronic kidney disease, stage 3 Deep venous thrombosis Gastroesophageal reflux disease Hyperlipidemia Hypertension Overweight (BMI 25.0-29.9) Parkinsons disease Prostate cancer Surgical History Surgical History History of colonoscopy with polypectomy History of transurethral resection of prostate Family History Family History Father Family history of cardiovascular disease Family history of elevated blood lipids Diabetes mellitus Suicide Mother Family history of malignant neoplasm of breast in first degree relative Other Hypertension Social History Social History Social History: Surrogate medical decision maker: Jc Goins, denis. Code status: Smoking packs per day: 3 Smoking cigarettes per day: 60.0 Years smoked: 11 Smoking pack-years: 33.00 Smoking status: Former smoker Tobacco type: cigars Second hand tobacco smoke exposure: No Alcohol intake: current Drinks per week: 1 Alcohol use details: Rare alcohol use. Substance use: never Substance use type: does not use Do You Feel Safe in your Home?: Yes Lack of Transportation: No Lack of Food: Never True Current Housing: I Have Housing Concerned About Future Housing: No Difficulty Paying Gas/Electric Bills: No Difficulty Paying for Meds: No Currently Unemployed: No Education: Associate Degree Difficulty w/ Childcare or Family Care: No Living arrangements: alone Additional living arrangements comments: son visits often; neighbor Torrey checks on him; patient has life alert Additional occupation/education comments: Worked in the [employer] and for the [employer] Spiritual care concerns: No Meds Home Medications and Allergies Home Medications Medication Instructions Recorded Confirmed Type rosuvastatin 10 mg tablet 10 mg PO DAILY #30 tabs 12/31/22 06/15/23 Rx tamsulosin 0.4 mg capsule 0.4 mg PO QHS #30 caps 12/31/22 06/15/23 Rx aspirin 81 mg chewable tablet 81 mg PO DAILY 04/27/23 06/15/23 History donepezil 10 mg tablet (Aricept) 10 mg PO DAILY 04/27/23 06/15/23 History ropinirole 1 mg tablet 1.5 mg PO ACHS 04/27/23 06/15/23 History midodrine 2.5 mg tablet 5 mg PO BID #60 tabs 05/02/23 06/15/23 Rx potassium chloride 20 mEq 20 meq PO DAILY #30 tabs 05/02/23 06/15/23 Rx tablet,extended release (K-Tab) carbidopa 25 mg-levodopa 100 mg 3 tablet PO QID #360 tabs 06/09/23 06/15/23 Rx tablet metoprolol tartrate 25 mg tablet 12.5 mg PO BID 06/15/23 06/15/23 History Allergies Allergy/AdvReac Type Severity Reaction Status Date / Time No Known Allergies Allergy Verified 11/06/22 15:44 Vital Signs Vital Signs - 24 hr 06/14/23 15:08 06/14/23 15:11 06/14/23 15:15 Temperature 97.9 F Pulse Rate 98 98 97 Respiratory Rate 19 22 H 24 H Blood Pressure 125/91 H 125/91 H 133/93 H Pulse Oximetry 100 99 99 Oxygen Delivery Room Air 06/14/23 16:15 06/14/23 16:38 06/14/23 16:45 Temperature Pulse Rate 96 76 81 Respiratory Rate 16 25 H 23 H Blood Pressure Pulse Oximetry 98 100 98 Oxygen Delivery 06/14/23 17:00 06/14/23 17:15 06/14/23 17:16 Temperature Pulse Rate 76 86 84 Respiratory Rate 20 19 22 H Blood Pressure 169/104 H Pulse Oximetry 99 100 100 Oxygen Delivery 06/14/23 17:30 06/14/23 17:45 06/14/23 18:00 Temperature Pulse Rate 85 86 90 Respiratory Rate 28 H 24 H 17 Blood Pressure 176/97 H Pulse Oximetry 100 99 99 Oxygen Delivery 06/14/23 18:01 06/14/23 18:15 06/14/23 18:31 Temperature Pulse Rate 86 93 84 Respiratory Rate 24 H 16 23 H Blood Pressure Pulse Oximetry 99 99 100 Oxygen Delivery 06/14/23 18:46 06/14/23 19:00 06/14/23 19:05 Temperature Pulse Rate 85 89 87 Respiratory Rate 25 H 23 H 17 Blood Pressure 177/108 H Pulse Oximetry 99 99 100 Oxygen Delivery 06/14/23 20:00 Temperature Pulse Rate 90 Respiratory Rate 18 Blood Pressure 174/106 H Pulse Oximetry 100 Oxygen Delivery Exam Narrative: PATIENT IS LAYING IN BED Const: General: comfortable, no acute distress, well developed, ill appearing and average body habitus Nutritional Appearance: average body habitus Orientation/consciousness: lethargic HENMT: Head: normal to inspection, normocephalic and atraumatic Ears: hearing grossly normal bilaterally Face/Nose/Sinus: normal facial exam Face and sinus: normal facial exam Eyes: General: appearance normal, both eyes and all related structures Pupils: Equal, round and reactive pupils present EOM: EOMs intact bilaterally Neck: Neck: full ROM, no lymphadenopathy and no JVD Thyroid: thyroid normal Lymphatic: no lymphadenopathy noted Resp: Effort & Inspection: normal respiratory effort and able to speak in complete sentences Auscultation: clear to auscultation bilaterally Cardio: Jugular venous distension: no JVD Rate: regular rate Rhythm: regular rhythm Heart sounds: S1 normal heart sound present and S2 normal heart sound present GI: GI Palp: Yes Soft to palpation and Yes No hepatosplenomegaly present : General: Yes deferred Skin: Rashes: no rashes Wounds: no wounds Neuro: General: CN's II-XI intact bilaterally Cranial nerves: Yes CN's II- XII intact bilaterally and Yes Equal, round and reactive pupils present Cognition (Neuro): abnormal cognition ( LETHARGY) Gait exam (Neuro): Unable to assess gait Motor exam (neuro): Motor abnormalities not present Extrem: General: normal to inspection, full ROM, no joint enlargement and no pedal edema H&P: Results Labs Labs: Short CBC 06/14/23 Range/Units 16:22 WBC 15.3 H (4.5-10.0) K/mm3 Hgb 14.5 D (14.0-18.0) g/dL Hct 43.3 (42.0-52.0) % Plt Count 267 (150-375) k/mm3 BMP 06/14/23 16:22 Sodium 138 Potassium 4.2 Chloride 104 Carbon Dioxide 24 BUN 37 H D Creatinine 1.30 Glucose 142 H Calcium 10.1 Cardiac Enzymes 06/14/23 Range/Units 16:22 Total Creatine Kinase > 45689 H (55-170) U/L Troponin I 0.028 (0.000-0.034) ng/mL Liver Function 06/14/23 Range/Units 16:22 Total Bilirubin 1.0 (0.2-1.3) mg/dL AST 494 H (17-59) U/L ALT 88 H (6-50) U/L Alkaline Phosphatase 76 (38-126) U/L Albumin 4.8 (3.5-5.1) g/dL Urine 06/14/23 Range/Units 16:31 Urine Color Dark yellow (Yellow) Urine Appearance Clear (Clear) Urine pH 5.5 (5.0-9.0) Ur Specific [place] 1.027 (1.001-1.035) Urine Protein 2+ H (Negative) mg/dL Urine Glucose (UA) Negative (Negative) mg/dL Assessment and Plan Assessment and plan (1) Rhabdomyolysis: Qualifiers: Encounter type: initial encounter Rhabdomyolysis type: traumatic Qualified Code(s): T79.6XXA - Traumatic ischemia of muscle, initial encounter Code(s): M62.82 - Rhabdomyolysis Status: Acute Assessment and Plan: gentle hydration continue to trend CK (2) Generalized weakness: Code(s): R53.1 - Weakness Status: Acute Assessment and Plan: PT OT (3) Frequent falls: Code(s): R29.6 - Repeated falls Status: Acute Assessment and Plan: fall precautions (4) Altered mental status: Qualifiers: Altered mental status type: somnolence Qualified Code(s): R40.0 - Somnolence Code(s): R41.82 - Altered mental status, unspecified Status: Acute Assessment and Plan: head CT reviewed unclear etiology (5) Chronic kidney disease, stage 3: Code(s): N18.30 - Chronic kidney disease, stage 3 unspecified Status: Chronic Assessment and Plan: continue to monitor BUN and creatinine (6) Parkinsons disease: Code(s): G20 - Parkinson's disease Status: Chronic Assessment and Plan: resume carbidopa levodopa
[2023-06-14] MEDS: hydrALAZINE HCL 20 MG/ML VIAL 10 MG IV PUSH (20:34)
--- NOTE | 2023-06-14 21:52 | ADMGEN ---
This patient, Abdulaziz Goins, was admitted to Medical Room 245-. Patient/family oriented to hospital policies and general routines including ID bracelet, bed and alarms, visiting hours, pain management, procedures, bathroom and other care routines, personal items, smoking policy, room service/diet, and visiting hours. Information on how to activate the Rapid Response Team has been discussed. Patient/Family are encouraged to report perceived risks to care and to ask questions if they do not understand what they are told or what they should do.
--- NOTE | 2023-06-14 21:53 | PC.NURSE ---
patient admitted with IV fluids infusing per order
[2023-06-15] VITALS (12 sets, daily range): BP systolic 110–130; BP diastolic 60–73; PULSE 62–96; RESP 16–18; TEMP 36.3–37.1; O2SAT 97–100
[2023-06-15 07:34] LABS: Basophils Percent Auto 0.1 % (0.2-1.2); Hematocrit 37.3 % (42.0-52.0); Hemoglobin 11.8 g/dL (14.0-18.0); Immature Granulocyte Absolute 0.05 K/mm3 (0.00-0.031); Immature Granulocyte Percent A 0.4 % (0-0.5); Lymphocytes Absolute Auto 0.96 K/mm3 (0.9-3.2); Lymphocytes Percent Auto 7.7 % (18.3-44.2); Mean Corpuscular HGB Conc 31.6 g/dl (32-36); Mean Corpuscular Hemoglobin 31.6 pg (26-34); Mean Platelet Volume 9.9 fl (7.4-10.4); Monocytes Absolute Auto 1.5 K/mm3 (0.1-0.6); Monocytes Percent Auto 11.7 % (2.6-8.5); Neutrophils Percent Auto 80.1 % (45.5-73.1); Platelet Count Result 225 k/mm3 (150-375); Red Blood Count 3.73 M/mm3 (4.6-6.20); Red Cell Distribution Width 13.4 % (11.5-14.5); White Blood Count 12.5 K/mm3 (4.5-10.0)
[2023-06-15 07:44] LABS: Anion Gap 5 mmol/L (4-12); Blood Urea Nitrogen 32 mg/dL (9-20); Calcium 8.8 mg/dL (8.4-10.2); Carbon Dioxide 22 mmol/L (22-30); Chloride 112 mmol/L (98-107); Estimated CRCL calculation 40 ml/min; Estimated Glomerular Filt Rate 58; Glucose 106 mg/dL (65-110); Potassium 4.1 mmol/L (3.4-5.0); Sodium 139 mmol/L (137-145)
[2023-06-15 08:31] LABS: Glucose Point of Care 82 mg/dl (65-105)
[2023-06-15] MEDS: FUROSEMIDE INJ 40 MG/4 ML VIAL 20 MG IV PUSH ×2 (09:06→17:49)
[2023-06-15 11:16] LABS: Creatine Kinase > 16000 U/L (55-170)
[2023-06-15 12:06] LABS: Glucose Point of Care 75 mg/dl (65-105)
--- NOTE | 2023-06-15 13:41 | PM.IMPN ---
Progress Note: A&P Assessment and Plan (1) Rhabdomyolysis: Qualifiers: Encounter type: initial encounter Rhabdomyolysis type: traumatic Qualified Code(s): T79.6XXA - Traumatic ischemia of muscle, initial encounter Code(s): M62.82 - Rhabdomyolysis Status: Acute Assessment and Plan: CK remains >17015 continue IVF (2) Generalized weakness: Code(s): R53.1 - Weakness Status: Acute Assessment and Plan: CT brain negative CXR negative PT/OT ordered BC pending (3) Frequent falls: Code(s): R29.6 - Repeated falls Status: Acute Assessment and Plan: XR showed right 7th rib fracture PT/OT ordered patient may need placement as he currently lives alone (4) Chronic kidney disease, stage 3: Code(s): N18.30 - Chronic kidney disease, stage 3 unspecified Status: Chronic Assessment and Plan: creatinine 1.20 eGFR 58 continue to monitor trend (5) Parkinsons disease: Code(s): G20 - Parkinson's disease Status: Chronic Assessment and Plan: will continue home meds when confirmed Subjective Date/time seen: 06/15/23 13:41 Interval history: Patient sitting up in bed, in no acute distress. He is reporting left sided arm pain and side pain, XR on shoulder showed no fracture. XR ribs showed right 7th rib fracture. PT/OT ordered for evaluation as he lives alone. CK remains elevated, but electrolytes and kidney function is stable. BC still pending. Review of Systems Review of Systems: All systems reviewed & are unremarkable except as noted in HPI and below ROS unobtainable: Yes unobtainable due to mental status Exam Narrative: GENERAL: Elderly male sitting up in bed, no acute distress. HEAD: Normocephalic, atraumatic. EYES: PERRLA and EOMI. ENT: Mucous membranes moist. NECK: supple CHEST: Lungs clear to auscultation. No respiratory distress. HEART: RRR. No murmur heard. Normal peripheral pulses. ABDOMEN: Soft, nontender, normoactive bowel sounds. EXTREMITIES: Normal range of motion. 1+ pitting edema to bilateral lower extremities without overlying erythema or warmth. SKIN: Warm, dry. NEURO: No focal deficits. Alert and oriented x2. PSYCH: Appropriate, apathetic Objective Data Vital Signs Vital Signs: Vital Signs - 24 hr 06/14/23 15:08 06/14/23 15:11 06/14/23 15:15 Temperature 97.9 F Pulse Rate 98 98 97 Respiratory Rate 19 22 H 24 H Blood Pressure 125/91 H 125/91 H 133/93 H Pulse Oximetry 100 99 99 Oxygen Delivery Room Air 06/14/23 16:15 06/14/23 16:38 06/14/23 16:45 Temperature Pulse Rate 96 76 81 Respiratory Rate 16 25 H 23 H Blood Pressure Pulse Oximetry 98 100 98 Oxygen Delivery 06/14/23 17:00 06/14/23 17:15 06/14/23 17:16 Temperature Pulse Rate 76 86 84 Respiratory Rate 20 19 22 H Blood Pressure 169/104 H Pulse Oximetry 99 100 100 Oxygen Delivery 06/14/23 17:30 06/14/23 17:45 06/14/23 18:00 Temperature Pulse Rate 85 86 90 Respiratory Rate 28 H 24 H 17 Blood Pressure 176/97 H Pulse Oximetry 100 99 99 Oxygen Delivery 06/14/23 18:01 06/14/23 18:15 06/14/23 18:31 Temperature Pulse Rate 86 93 84 Respiratory Rate 24 H 16 23 H Blood Pressure Pulse Oximetry 99 99 100 Oxygen Delivery 06/14/23 18:46 06/14/23 19:00 06/14/23 19:05 Temperature Pulse Rate 85 89 87 Respiratory Rate 25 H 23 H 17 Blood Pressure 177/108 H Pulse Oximetry 99 99 100 Oxygen Delivery 06/14/23 20:00 06/14/23 20:15 06/14/23 20:30 Temperature Pulse Rate 90 90 91 Respiratory Rate 18 24 H 15 Blood Pressure 174/106 H Pulse Oximetry 100 99 Oxygen Delivery 06/14/23 20:35 06/14/23 20:41 06/14/23 20:45 Temperature Pulse Rate 84 94 96 Respiratory Rate 33 H 34 H 24 H Blood Pressure 168/93 H Pulse Oximetry 99 99 100 Oxygen Delivery 06/14/23 20:50 06/14/23 22:17 06/14/23 21:56 Temperature 97.7 F Pulse Rate 97 73 Respiratory Rate 21 H 20 Blood Pressure 153/86 H 112/54 L Pulse Oximetry 99 99 Oxygen Delivery Room Air 06/15/23 00:00 06/15/23 04:00 06/15/23 06:00 Temperature 97.6 F Pulse Rate 77 73 85 Respiratory Rate 18 Blood Pressure 130/73 Pulse Oximetry 97 Oxygen Delivery 06/15/23 09:10 06/15/23 08:00 Temperature Pulse Rate 62 Respiratory Rate Blood Pressure Pulse Oximetry Oxygen Delivery Room Air Intake/Output Intake/Output: Intake & Output 06/12/23 06/13/23 06/14/23 06/15/23 23:59 23:59 23:59 23:59 Intake Total 2000 660 Output Total 200 800 Balance 1800 -140 Meds/Results Medications: Active Medications Generic Name Dose Route Start Last Admin Trade Name Jessica PRN Reason Stop Dose Admin Furosemide 20 mg 06/15/23 09:00 06/15/23 09:06 Furosemide Inj 40 Mg/4 Ml Vial IV PUSH 20 mg BID MARIANA Administration Sodium Chloride 1,000 mls @ 100 mls/hr 06/14/23 19:00 06/14/23 19:49 Normal Saline Iv IV CONT 100 mls/hr .Q10H MARIANA Administration Radiology Results: ITS Impressions Head CT 06/14/23 16:09 IMPRESSION: 1. No acute intracranial abnormality. Lumbar Spine CT 06/14/23 16:14 IMPRESSION: 1. Severe lower lumbar predominant spondylosis. 2. 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 No acute osseous abnormality at the lumbar spine or pelvis. 3. 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 ADDENDUM: 06/14/23 1653 ADDENDUM: Asymmetric masslike enlargement of the right seminal vesicle which raises concern for malignancy particularly if there is any prior history of prostate cancer. Correlate with clinical history and with PSA level. Dr. Wagner discussed these findings with Dr. Alvarado at 4:[address] 06/14/23 16:14 IMPRESSION: 1. Severe lower lumbar predominant spondylosis. 2. 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 No acute osseous abnormality at the lumbar spine or pelvis. 3. 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 ADDENDUM: 06/14/23 1653 ADDENDUM: Asymmetric masslike enlargement of the right seminal vesicle which raises concern for malignancy particularly if there is any prior history of prostate cancer. Correlate with clinical history and with PSA level. Dr. Wagner discussed these findings with Dr. Alvarado at 4:50 PM. Chest X-Ray 06/14/23 16:27 Impression: 1: No acute cardiopulmonary disease. Ribs X-Ray 06/15/23 12:03 IMPRESSION: 1. Right seventh rib fracture. Shoulder X-Ray 06/15/23 12:10 IMPRESSION: 1. Polyarticular osteoarthritis. Labs Labs: Laboratory Results - last 24 hr 06/14/23 06/14/23 06/14/23 16:22 16:31 17:50 WBC 15.3 H RBC 4.54 L Hgb 14.5 D Hct 43.3 MCV 95.4 MCH 31.9 MCHC 33.5 RDW 13.2 Plt Count 267 MPV 10.0 Immature Gran % (Auto) 0.5 Neut % (Auto) 88.4 H Lymph % (Auto) 2.3 L [place] % (Auto) 8.7 H Eos % (Auto) 0.0 Baso % (Auto) 0.1 L Lymph # (Auto) 0.35 L [place] # (Auto) 1.3 H Eos # (Auto) 0.0 Baso # (Auto) 0.0 Abs Immat Gran (auto) 0.08 H Absolute Neuts (auto) 13.5 H Absolute Nucleated RBC 0.000 Nucleated RBC % 0.0 PT 14.0 INR 1.0 APTT 26.1 Sodium 138 Potassium 4.2 Chloride 104 Carbon Dioxide 24 Anion Gap 10 BUN 37 H D Creatinine 1.30 Estim Creat Clear Calc 36 Estimated GFR 53 L Glucose 142 H POC Capillary Glucose Lactic Acid 3.3 H Calcium 10.1 Total Bilirubin 1.0 AST 494 H ALT 88 H Alkaline Phosphatase 76 Total Creatine Kinase > 62437 H Troponin I 0.028 NT-Pro-B Natriuret Pep 165 H Total Protein 8.0 Albumin 4.8 TSH (Reflex) 1.650 Urine Color Dark yellow Urine Appearance Clear Urine pH 5.5 Ur Specific [place] 1.027 Urine Protein 2+ H Urine Glucose (UA) Negative Urine Ketones 1+ H Ur Blood (Man) 3+ H Urine Nitrate Negative Urine Bilirubin Negative Urine Urobilinogen 0.2 Leukocyte Esterase Rfl Negative Urine RBC 0-2 Urine WBC 0-5 Ur Squamous Epith Cells None seen Urine Bacteria None seen Urine Casts 3-5 Influenza A (RT-PCR) Negative Influenza B (RT-PCR) Negative RSV (RT-PCR) Negative SARS-CoV-2 RNA (RT-PCR) Negative 06/14/23 06/15/23 06/15/23 20:11 07:16 08:25 WBC 12.5 H RBC 3.73 L Hgb 11.8 L Hct 37.3 L MCV 100.0 MCH 31.6 MCHC 31.6 L RDW 13.4 Plt Count 225 MPV 9.9 Immature Gran % (Auto) 0.4 Neut % (Auto) 80.1 H Lymph % (Auto) 7.7 L [place] % (Auto) 11.7 H Eos % (Auto) 0.0 Baso % (Auto) 0.1 L Lymph # (Auto) 0.96 [place] # (Auto) 1.5 H Eos # (Auto) 0.0 Baso # (Auto) 0.0 Abs Immat Gran (auto) 0.05 H Absolute Neuts (auto) 10.0 H Absolute Nucleated RBC 0.000 Nucleated RBC % 0.0 PT INR APTT Sodium 139 Potassium 4.1 Chloride 112 H Carbon Dioxide 22 Anion Gap 5 BUN 32 H Creatinine 1.20 Estim Creat Clear Calc 40 Estimated GFR 58 L Glucose 106 POC Capillary Glucose 82 Lactic Acid 1.7 Calcium 8.8 Total Bilirubin AST ALT Alkaline Phosphatase Total Creatine Kinase > 40218 H Troponin I NT-Pro-B Natriuret Pep Total Protein Albumin TSH (Reflex) Urine Color Urine Appearance Urine pH Ur Specific [place] Urine Protein Urine Glucose (UA) Urine Ketones Ur Blood (Man) Urine Nitrate Urine Bilirubin Urine Urobilinogen Leukocyte Esterase Rfl Urine RBC Urine WBC Ur Squamous Epith Cells Urine Bacteria Urine Casts Influenza A (RT-PCR) Influenza B (RT-PCR) RSV (RT-PCR) SARS-CoV-2 RNA (RT-PCR) 06/15/23 12:03 WBC RBC Hgb Hct MCV MCH MCHC RDW Plt Count MPV Immature Gran % (Auto) Neut % (Auto) Lymph % (Auto) [place] % (Auto) Eos % (Auto) Baso % (Auto) Lymph # (Auto) [place] # (Auto) Eos # (Auto) Baso # (Auto) Abs Immat Gran (auto) Absolute Neuts (auto) Absolute Nucleated RBC Nucleated RBC % PT INR APTT Sodium Potassium Chloride Carbon Dioxide Anion Gap BUN Creatinine Estim Creat Clear Calc Estimated GFR Glucose POC Capillary Glucose 75 Lactic Acid Calcium Total Bilirubin AST ALT Alkaline Phosphatase Total Creatine Kinase Troponin I NT-Pro-B Natriuret Pep Total Protein Albumin TSH (Reflex) Urine Color Urine Appearance Urine pH Ur Specific [place] Urine Protein Urine Glucose (UA) Urine Ketones Ur Blood (Man) Urine Nitrate Urine Bilirubin Urine Urobilinogen Leukocyte Esterase Rfl Urine RBC Urine WBC Ur Squamous Epith Cells Urine Bacteria Urine Casts Influenza A (RT-PCR) Influenza B (RT-PCR) RSV (RT-PCR) SARS-CoV-2 RNA (RT-PCR) Quality VTE Prophylaxis VTE prophylaxis: mechanical ordered
[2023-06-15 17:01] LABS: Glucose Point of Care 125 mg/dl (65-105)
[2023-06-15] MEDS: MIDODRINE HCL 2.5 MG TABLET 5 MG PO (17:48)
[2023-06-15] MEDS: CARBIDOPA/LEVODOPA 25/100 MG TABLET 3 TABLET PO ×2 (17:48→20:16)
[2023-06-15] MEDS: rOPINIRole HCL 0.5 MG TABLET 1.5 MG PO ×2 (17:48→20:15)
[2023-06-15] MEDS: TAMSULOSIN HCL 0.4 MG CAPSULE PO (20:15)
[2023-06-15] MEDS: METOPROLOL TARTRATE 12.5 MG TABLET PO (20:15)
[2023-06-15] MEDS: SODIUM CHLORIDE 0.9% IV 1,000 ML 100 ML IV CONT (22:10)
[2023-06-16] VITALS (11 sets, daily range): BP systolic 102–128; BP diastolic 61–70; PULSE 59–88; RESP 18–20; TEMP 36.2–36.6; O2SAT 97–100
[2023-06-16 06:27] LABS: Basophils Percent Auto 0.2 % (0.2-1.2); Eosinophils Percent Auto 0.2 % (0-4.4); Hematocrit 30.6 % (42.0-52.0); Hemoglobin 9.7 g/dL (14.0-18.0); Immature Granulocyte Absolute 0.05 K/mm3 (0.00-0.031); Immature Granulocyte Percent A 0.5 % (0-0.5); Lymphocytes Percent Auto 14.2 % (18.3-44.2); Mean Corpuscular HGB Conc 31.7 g/dl (32-36); Mean Corpuscular Hemoglobin 31.4 pg (26-34); Mean Platelet Volume 10.4 fl (7.4-10.4); Monocytes Absolute Auto 1.2 K/mm3 (0.1-0.6); Monocytes Percent Auto 12.6 % (2.6-8.5); Neutrophils Absolute Auto 7.1 K/mm3 (1.3-6.7); Neutrophils Percent Auto 72.3 % (45.5-73.1); Platelet Count Result 177 k/mm3 (150-375); Red Blood Count 3.09 M/mm3 (4.6-6.20); Red Cell Distribution Width 13.8 % (11.5-14.5); White Blood Count 9.8 K/mm3 (4.5-10.0)
[2023-06-16 06:50] LABS: Albumin Level 2.9 g/dL (3.5-5.1); Anion Gap 5 mmol/L (4-12); Blood Urea Nitrogen 33 mg/dL (9-20); Calcium 8.3 mg/dL (8.4-10.2); Carbon Dioxide 25 mmol/L (22-30); Chloride 108 mmol/L (98-107); Estimated CRCL calculation 37 ml/min; Estimated Glomerular Filt Rate 53; Glucose 102 mg/dL (65-110); Magnesium 2.2 mg/dL (1.6-2.3); Phosphorus 3.5 mg/dL (2.5-4.5); Potassium 3.3 mmol/L (3.4-5.0); Sodium 138 mmol/L (137-145)
[2023-06-16 07:14] LABS: Creatine Kinase > 16000 U/L (55-170)
[2023-06-16 07:59] LABS: Glucose Point of Care 140 mg/dl (65-105)
[2023-06-16] MEDS: POTASSIUM CHLORIDE 20 MEQ ER TABLET PO (08:09)
[2023-06-16] MEDS: MIDODRINE HCL 2.5 MG TABLET 5 MG PO ×2 (08:09→17:31)
[2023-06-16] MEDS: ASPIRIN 81 MG CHEWABLE TABLET PO (08:09)
[2023-06-16] MEDS: METOPROLOL TARTRATE 12.5 MG TABLET PO ×2 (08:09→20:06)
[2023-06-16] MEDS: FUROSEMIDE INJ 40 MG/4 ML VIAL 20 MG IV PUSH (08:11)
[2023-06-16] MEDS: CARBIDOPA/LEVODOPA 25/100 MG TABLET 3 TABLET PO ×4 (08:11→20:06)
[2023-06-16] MEDS: DONEPEZIL HCL 10 MG TABLET PO (08:11)
[2023-06-16] MEDS: SODIUM CHLORIDE 0.9% IV 1,000 ML 100 ML IV CONT ×2 (08:13→17:36)
[2023-06-16 08:29] LABS: Glucose Point of Care 100 mg/dl (65-105)
[2023-06-16] MEDS: FUROSEMIDE INJ 40 MG/4 ML VIAL IV PUSH ×2 (09:56→17:36)
--- NOTE | 2023-06-16 10:56 | PC.NURSE ---
On 06/16/23, the student, [Mario Murillo], provided care and completed [facility] documentation on this patient. I have reviewed the student's documentation and agree with the findings.
[2023-06-16 11:54] LABS: Glucose Point of Care 116 mg/dl (65-105)
[2023-06-16] MEDS: rOPINIRole HCL 0.5 MG TABLET 1.5 MG PO ×3 (12:54→20:06)
--- NOTE | 2023-06-16 13:05 | P.PNIM_ITS ---
Progress Note: A&P Assessment and Plan (1) Rhabdomyolysis: Qualifiers: Encounter type: initial encounter Rhabdomyolysis type: traumatic Qualified Code(s): T79.6XXA - Traumatic ischemia of muscle, initial encounter Code(s): M62.82 - Rhabdomyolysis Status: Acute Assessment and Plan: * CK remains >36431 * increase IVF * increase Lasix dose to 40 BID * holding statin (2) Generalized weakness: Code(s): R53.1 - Weakness Status: Acute Assessment and Plan: * CT brain negative * CXR negative * CTA negative for acute process or changes * PT/OT recommend SNF * BC pending (3) Frequent falls: Code(s): R29.6 - Repeated falls Status: Acute Assessment and Plan: * XR showed right 7th rib fracture * CTA negative for acute process * PT/OT - SNF (4) Chronic kidney disease, stage 3: Code(s): N18.30 - Chronic kidney disease, stage 3 unspecified Status: Chronic Assessment and Plan: * creatinine 1.30 * eGFR 53 * continue to monitor trend (5) Parkinsons disease: Code(s): G20 - Parkinson's disease Status: Chronic Assessment and Plan: * will continue home meds * PT/OT Subjective Date/time seen: 06/16/23 13:05 Interval history: Patient sitting up in chair in no acute distress. His CK continues to be elevated, will increase fluids and Lasix given heart history. PT/OT recommends SNF, CC following. CTA negative for acute process, dropping H&H may be due to dilution, will continue to monitor. Review of Systems Review of Systems: ROS unobtainable: Yes unobtainable due to mental status Exam Narrative: GENERAL: Elderly male sitting up in chair, no acute distress. HEAD: Normocephalic, atraumatic. EYES: PERRLA and EOMI. ENT: Mucous membranes moist. NECK: supple CHEST: Lungs clear to auscultation. No respiratory distress. HEART: RRR. No murmur heard. Normal peripheral pulses. ABDOMEN: Soft, nontender, normoactive bowel sounds. EXTREMITIES: Normal range of motion. No edema. SKIN: Warm, dry. NEURO: No focal deficits. Alert and oriented x2. PSYCH: Appropriate, apathetic Objective Data Vital Signs Vital Signs: Vital Signs - 24 hr 06/15/23 14:00 06/15/23 16:00 06/15/23 20:15 Temperature 97.3 F L Pulse Rate 96 89 84 Respiratory Rate 16 Blood Pressure 110/67 Pulse Oximetry 100 Oxygen Delivery 06/15/23 20:12 06/15/23 20:03 06/15/23 22:00 Temperature 98.7 F Pulse Rate 81 76 Respiratory Rate 18 Blood Pressure 114/60 Pulse Oximetry 97 Oxygen Delivery Room Air 06/16/23 00:01 06/16/23 04:03 06/15/23 21:53 Temperature Pulse Rate 88 76 Respiratory Rate Blood Pressure Pulse Oximetry 97 Oxygen Delivery Room Air 06/16/23 06:00 06/16/23 08:09 06/16/23 09:02 Temperature 97.6 F Pulse Rate 64 71 Respiratory Rate 20 Blood Pressure 128/70 Pulse Oximetry 98 Oxygen Delivery Room Air 06/16/23 08:10 06/16/23 08:00 06/16/23 12:00 Temperature Pulse Rate 59 L 84 Respiratory Rate Blood Pressure Pulse Oximetry Oxygen Delivery Room Air Intake/Output Intake/Output: Intake & Output 06/13/23 06/14/23 06/15/23 06/16/23 23:59 23:59 23:59 23:59 Intake Total 1999 2670 1640 Output Total 200 1800 2200 Balance 1800 870 -560 Meds/Results Medications: Active Medications Generic Name Dose Route Start Last Admin Trade Name Freq PRN Reason Stop Dose Admin Acetaminophen 650 mg 06/15/23 14:55 Acetaminophen 325 Mg Tablet PO Q6H PRN Mild Pain (1-3) or Fever Aspirin 81 mg 06/16/23 09:00 06/16/23 08:09 Aspirin 81 Mg Chewable Tablet PO 81 mg DAILY MARIANA Administration Carbidopa/Levodopa 3 tablet 06/15/23 17:00 06/16/23 12:54 Carbidopa/Levodopa 25/100 Mg Tablet PO 3 tablet WMHS MARIANA Administration Donepezil HCl 10 mg 06/16/23 09:00 06/16/23 08:11 Donepezil Hcl 10 Mg Tablet PO 10 mg DAILY MARIANA Administration Enoxaparin Sodium 40 mg 06/17/23 09:00 Enoxaparin 40 Mg/0.4 Ml Syringe SUB-Q DAILY MARIANA Furosemide 40 mg 06/16/23 09:00 06/16/23 09:56 Furosemide Inj 40 Mg/4 Ml Vial IV PUSH 20 mg BID MARIANA Administration Sodium Chloride 1,000 mls @ 150 mls/hr 06/14/23 19:00 06/16/23 08:13 Normal Saline Iv IV CONT 100 mls/hr .Q6H40M MARIANA Administration Metoprolol Tartrate 12.5 mg 06/15/23 21:00 06/16/23 08:09 Metoprolol Tartrate 12.5 Mg Tablet PO 12.5 mg Q12HR MARIANA Administration Midodrine 5 mg 06/15/23 17:00 06/16/23 08:09 Midodrine Hcl 2.5 Mg Tablet PO 5 mg BID MARIANA Administration Potassium Chloride 20 meq 06/16/23 08:00 06/16/23 08:09 Potassium Chloride 20 Meq Er Tablet PO 20 meq DAILY@0800 MARIANA Administration Ropinirole HCl 1.5 mg 06/15/23 16:30 06/16/23 12:54 Ropinirole Hcl 0.5 Mg Tablet PO 1.5 mg ACHS MARIANA Administration Rosuvastatin Calcium 10 mg 06/16/23 17:00 Rosuvastatin 10 Mg Tablet PO DAILY@1700 [facility] Tamsulosin HCl 0.4 mg 06/15/23 21:00 06/15/23 20:15 Tamsulosin Hcl 0.4 Mg Capsule PO 0.4 mg QHS MARIANA Administration Radiology Results: ITS Impressions Head CT 06/14/23 16:09 IMPRESSION: 1. No acute intracranial abnormality. Lumbar Spine CT 06/14/23 16:14 IMPRESSION: 1. Severe lower lumbar predominant spondylosis. 2. 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 No acute osseous abnormality at the lumbar spine or pelvis. 3. 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 ADDENDUM: 06/14/23 1653 ADDENDUM: Asymmetric masslike enlargement of the right seminal vesicle which raises concern for malignancy particularly if there is any prior history of prostate cancer. Correlate with clinical history and with PSA level. Dr. Wagner discussed these findings with Dr. Alvarado at 4:[address] 06/14/23 16:14 IMPRESSION: 1. Severe lower lumbar predominant spondylosis. 2. 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 No acute osseous abnormality at the lumbar spine or pelvis. 3. 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 ADDENDUM: 06/14/23 0351 ADDENDUM: Asymmetric masslike enlargement of the right seminal vesicle which raises concern for malignancy particularly if there is any prior history of prostate cancer. Correlate with clinical history and with PSA level. Dr. Wagner discussed these findings with Dr. Alvarado at 4:50 PM. Chest X-Ray 06/14/23 16:27 Impression: 1: No acute cardiopulmonary disease. Ribs X-Ray 06/15/23 12:03 IMPRESSION: 1. Right seventh rib fracture. Shoulder X-Ray 06/15/23 12:10 IMPRESSION: 1. Polyarticular osteoarthritis. Chest/Abdomen CT 06/16/23 09:10 IMPRESSION: 1. Acute nondisplaced lateral right seventh rib fracture. No right pneumothorax/hemothorax. 2. Small left pleural effusion. 3. No acute intra-abdominal process. 4. Diffuse mild bladder wall thickening which could be due to chronic outlet obstruction or cystitis either acute or chronic. Labs Labs: Laboratory Results - last 24 hr 06/15/23 06/15/23 06/16/23 16:53 20:12 05:15 WBC 9.8 RBC 3.09 L Hgb 9.7 L Hct 30.6 L MCV 99.0 MCH 31.4 MCHC 31.7 L RDW 13.8 Plt Count 177 MPV 10.4 Immature Gran % (Auto) 0.5 Neut % (Auto) 72.3 Lymph % (Auto) 14.2 L [place] % (Auto) 12.6 H Eos % (Auto) 0.2 Baso % (Auto) 0.2 Lymph # (Auto) 1.40 [place] # (Auto) 1.2 H Eos # (Auto) 0.0 Baso # (Auto) 0.0 Abs Immat Gran (auto) 0.05 H Absolute Neuts (auto) 7.1 H Absolute Nucleated RBC 0.000 Nucleated RBC % 0.0 Sodium 138 Potassium 3.3 L Chloride 108 H Carbon Dioxide 25 Anion Gap 5 BUN 33 H Creatinine 1.30 Estim Creat Clear Calc 37 Estimated GFR 53 L Glucose 102 POC Capillary Glucose 125 H 140 H Calcium 8.3 L Phosphorus 3.5 Magnesium 2.2 Total Creatine Kinase > 07009 H Albumin 2.9 L 06/16/23 06/16/23 08:21 11:51 WBC RBC Hgb Hct MCV MCH MCHC RDW Plt Count MPV Immature Gran % (Auto) Neut % (Auto) Lymph % (Auto) [place] % (Auto) Eos % (Auto) Baso % (Auto) Lymph # (Auto) [place] # (Auto) Eos # (Auto) Baso # (Auto) Abs Immat Gran (auto) Absolute Neuts (auto) Absolute Nucleated RBC Nucleated RBC % Sodium Potassium Chloride Carbon Dioxide Anion Gap BUN Creatinine Estim Creat Clear Calc Estimated GFR Glucose POC Capillary Glucose 100 116 H Calcium Phosphorus Magnesium Total Creatine Kinase Albumin Quality VTE Prophylaxis VTE prophylaxis: pharmacologic ordered
--- NOTE | 2023-06-16 14:22 | PC.NURSE ---
On 06/16/23, the student, [Michelle Montano], provided care and completed [facility] documentation on this patient. I have reviewed the student's documentation and agree with the findings.
[2023-06-16 16:58] LABS: Glucose Point of Care 93 mg/dl (65-105)
[2023-06-16] MEDS: TAMSULOSIN HCL 0.4 MG CAPSULE PO (20:06)
[2023-06-17] VITALS (13 sets, daily range): BP systolic 107–146; BP diastolic 54–63; PULSE 52–82; RESP 16–20; TEMP 36.2–36.8; O2SAT 95–100
[2023-06-17] MEDS: SODIUM CHLORIDE 0.9% IV 1,000 ML 100 ML IV CONT ×2 (00:13→06:22)
[2023-06-17 03:42] LABS: Glucose Point of Care 125 mg/dl (65-105)
[2023-06-17 05:21] LABS: Anion Gap 3 mmol/L (4-12); Blood Urea Nitrogen 29 mg/dL (9-20); Calcium 8.1 mg/dL (8.4-10.2); Carbon Dioxide 27 mmol/L (22-30); Chloride 107 mmol/L (98-107); Estimated CRCL calculation 40 ml/min; Estimated Glomerular Filt Rate 58; Glucose 96 mg/dL (65-110); Potassium 2.9 mmol/L (3.4-5.0); Sodium 137 mmol/L (137-145)
[2023-06-17 05:43] LABS: Creatine Kinase 15907 U/L (55-170)
[2023-06-17] MEDS: rOPINIRole HCL 0.5 MG TABLET 1.5 MG PO ×4 (05:47→20:13)
[2023-06-17 07:08] LABS: Basophils Percent Auto 0.4 % (0.2-1.2); Eosinophils Absolute Auto 0.1 K/mm3 (0-0.3); Eosinophils Percent Auto 0.7 % (0-4.4); Hematocrit 28.2 % (42.0-52.0); Hemoglobin 8.9 g/dL (14.0-18.0); Immature Granulocyte Absolute 0.04 K/mm3 (0.00-0.031); Immature Granulocyte Percent A 0.5 % (0-0.5); Lymphocytes Absolute Auto 1.26 K/mm3 (0.9-3.2); Lymphocytes Percent Auto 15.2 % (18.3-44.2); Mean Corpuscular HGB Conc 31.6 g/dl (32-36); Mean Corpuscular Hemoglobin 31.2 pg (26-34); Mean Corpuscular Volume 98.9 fl (80-100); Mean Platelet Volume 10.6 fl (7.4-10.4); Monocytes Absolute Auto 0.8 K/mm3 (0.1-0.6); Monocytes Percent Auto 9.9 % (2.6-8.5); Neutrophils Absolute Auto 6.1 K/mm3 (1.3-6.7); Neutrophils Percent Auto 73.3 % (45.5-73.1); Platelet Count Result 158 k/mm3 (150-375); Red Blood Count 2.85 M/mm3 (4.6-6.20); Red Cell Distribution Width 13.4 % (11.5-14.5); White Blood Count 8.3 K/mm3 (4.5-10.0)
[2023-06-17 08:20] LABS: Glucose Point of Care 89 mg/dl (65-105)
[2023-06-17] MEDS: CARBIDOPA/LEVODOPA 25/100 MG TABLET 3 TABLET PO ×4 (09:51→20:14)
[2023-06-17] MEDS: ENOXAPARIN 40 MG/0.4 ML SYRINGE SUB-Q (09:51)
[2023-06-17] MEDS: ASPIRIN 81 MG CHEWABLE TABLET PO (09:51)
[2023-06-17] MEDS: MIDODRINE HCL 2.5 MG TABLET 5 MG PO ×2 (09:52→16:45)
[2023-06-17] MEDS: METOPROLOL TARTRATE 12.5 MG TABLET PO ×2 (09:52→20:14)
[2023-06-17] MEDS: DONEPEZIL HCL 10 MG TABLET PO (09:52)
[2023-06-17] MEDS: POTASSIUM CHLORIDE 20 MEQ PACKET (FOR LIQUID) PO (09:52)
[2023-06-17] MEDS: FUROSEMIDE INJ 40 MG/4 ML VIAL IV PUSH (09:53)
--- NOTE | 2023-06-17 10:12 | P.PNIM_ITS ---
Progress Note: A&P Assessment and Plan (1) Rhabdomyolysis: Qualifiers: Encounter type: initial encounter Rhabdomyolysis type: traumatic Qualified Code(s): T79.6XXA - Traumatic ischemia of muscle, initial encounter Code(s): M62.82 - Rhabdomyolysis Status: Acute Assessment [place]: * [place] [address] * K+ 2.9, hold IVF, give 40 meq IVPB over 3 hours * hold evening lasix * continue strict I&o * continue holding statin (2) Generalized weakness: Code(s): R53.1 - Weakness Status: Acute Assessment and Plan: * CT brain negative * CXR negative * CTA negative for acute process or changes * PT/OT recommend SNF * BC pending (3) Frequent falls: Code(s): R29.6 - Repeated falls Status: Acute Assessment and Plan: * XR showed right 7th rib fracture * CTA negative for acute process * PT/OT - SNF (4) Chronic kidney disease, stage 3: Code(s): N18.30 - Chronic kidney disease, stage 3 unspecified Status: Chronic Assessment and Plan: * creatinine 1.20 * eGFR 58 * continue to monitor trend (5) Parkinsons disease: Code(s): G20 - Parkinson's disease Status: Chronic Assessment and Plan: * will continue home meds * PT/OT Plan Continue home medications: VTE Prophylaxis: Enoxaparin subQ DIET: carbohydrate diet Anticipated hospital stay: > 2 days Code Status: DNR Subjective Date/time seen: 06/17/23 10:12 Interval history: Patient.up in the bed eating breakfast, no acute distress denies any overnight c/o hgb has dropped to 8.9, K+ is 2.9 [place] [address] slight improvement. Review of Systems Review of Systems: All systems reviewed & are unremarkable except as noted in HPI and below Exam Narrative: GENERAL: Elderly male sitting up in chair, no acute distress. HEAD: Normocephalic, atraumatic. EYES: PERRLA and EOMI. ENT: Mucous membranes moist. NECK: supple CHEST: Lungs clear to auscultation. No respiratory distress. HEART: RRR. No murmur heard. Normal peripheral pulses. ABDOMEN: Soft, nontender, normoactive bowel sounds. EXTREMITIES: Normal range of motion. No edema. SKIN: Warm, dry. NEURO: No focal deficits. Alert and oriented x2. PSYCH: Appropriate, apathetic Objective Data Vital Signs Vital Signs: Vital Signs - 24 hr 06/16/23 11:48 06/16/23 12:00 06/16/23 14:00 Temperature 97.9 F Pulse Rate 84 72 Respiratory Rate 20 Blood Pressure 109/67 Pulse Oximetry 100 Oxygen Delivery Room Air 06/16/23 16:00 06/16/23 20:06 06/16/23 20:05 Temperature Pulse Rate 80 84 Respiratory Rate Blood Pressure Pulse Oximetry Oxygen Delivery Room Air 06/16/23 20:03 06/16/23 22:31 06/17/23 00:01 Temperature 97.1 F L Pulse Rate 73 64 72 Respiratory Rate 18 Blood Pressure 102/61 Pulse Oximetry 97 Oxygen Delivery 06/17/23 04:04 06/17/23 06:00 06/17/23 08:00 Temperature 97.7 F Pulse Rate 65 64 79 Respiratory Rate 16 Blood Pressure 146/63 H Pulse Oximetry 95 Oxygen Delivery 06/17/23 08:40 06/17/23 09:52 Temperature Pulse Rate 82 Respiratory Rate Blood Pressure Pulse Oximetry Oxygen Delivery Room Air Intake/Output Intake/Output: Intake & Output 06/14/23 06/15/23 06/16/23 06/17/23 23:59 23:59 23:59 23:59 Intake Total 1999 2670 3178.3 2760 Output Total 200 1800 4150 2400 Balance 1800 870 -971.7 360 Meds/Results Medications: Active Medications Generic Name Dose Route Start Last Admin Trade Name Freq PRN Reason Stop Dose Admin Acetaminophen 650 mg 06/15/23 14:55 Acetaminophen 325 Mg Tablet PO Q6H PRN Mild Pain (1-3) or Fever Aspirin 81 mg 06/16/23 09:00 06/17/23 09:51 Aspirin 81 Mg Chewable Tablet PO 81 mg DAILY MARIANA Administration Carbidopa/Levodopa 3 tablet 06/15/23 17:00 06/17/23 09:51 Carbidopa/Levodopa 25/100 Mg Tablet PO 3 tablet WMHS MARIANA Administration Donepezil HCl 10 mg 06/16/23 09:00 06/17/23 09:52 Donepezil Hcl 10 Mg Tablet PO 10 mg DAILY MARIANA Administration Enoxaparin Sodium 40 mg 06/17/23 09:00 06/17/23 09:51 Enoxaparin 40 Mg/0.4 Ml Syringe SUB-Q 40 mg DAILY MARIANA Administration Furosemide 40 mg 06/16/23 09:00 06/17/23 09:53 Furosemide Inj 40 Mg/4 Ml Vial IV PUSH 40 mg BID MARIANA Administration Potassium Chloride 40 meq/ 520 mls @ 130 mls/hr 06/17/23 10:11 Sodium Chloride IVPB 06/17/23 14:10 ONCE ONE Metoprolol Tartrate 12.5 mg 06/15/23 21:00 06/17/23 09:52 Metoprolol Tartrate 12.5 Mg Tablet PO 12.5 mg Q12HR MARIANA Administration Midodrine 5 mg 06/15/23 17:00 06/17/23 09:52 Midodrine Hcl 2.5 Mg Tablet PO 5 mg BID MARIANA Administration Potassium Chloride 20 meq 06/17/23 08:00 06/17/23 09:52 Potassium Chloride 20 Meq Packet (For Liquid) PO 20 meq DAILY@0800 MARIANA Administration Ropinirole HCl 1.5 mg 06/15/23 16:30 06/17/23 05:47 Ropinirole Hcl 0.5 Mg Tablet PO 1.5 mg ACHS MARIANA Administration Rosuvastatin Calcium 10 mg 06/16/23 17:00 Rosuvastatin 10 Mg Tablet PO DAILY@1700 MARIANA Tamsulosin HCl 0.4 mg 06/15/23 21:00 06/16/23 20:06 Tamsulosin Hcl 0.4 Mg Capsule PO 0.4 mg QHS MARIANA Administration Radiology Results: ITS Impressions Head CT 06/14/23 16:09 IMPRESSION: 1. No acute intracranial abnormality. Lumbar Spine CT 06/14/23 16:14 IMPRESSION: 1. Severe lower lumbar predominant spondylosis. 2. 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 No acute osseous abnormality at the lumbar spine or pelvis. 3. 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 ADDENDUM: 06/14/23 6049 ADDENDUM: Asymmetric masslike enlargement of the right seminal vesicle which raises concern for malignancy particularly if there is any prior history of prostate cancer. Correlate with clinical history and with PSA level. Dr. Wagner discussed these findings with Dr. Alvarado at 4:[address] 06/14/23 16:14 IMPRESSION: 1. Severe lower lumbar predominant spondylosis. 2. 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 No acute osseous abnormality at the lumbar spine or pelvis. 3. 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 ADDENDUM: 06/14/23 1653 ADDENDUM: Asymmetric masslike enlargement of the right seminal vesicle which raises concern for malignancy particularly if there is any prior history of prostate cancer. Correlate with clinical history and with PSA level. Dr. Kristy lan sed these findings with Dr. Alvarado at 4:50 PM. Chest X-Ray 06/14/23 16:27 Impression: 1: No acute cardiopulmonary disease. Ribs X-Ray 06/15/23 12:03 IMPRESSION: 1. Right seventh rib fracture. Shoulder X-Ray 06/15/23 12:10 IMPRESSION: 1. Polyarticular osteoarthritis. Chest/Abdomen CT 06/16/23 09:10 IMPRESSION: 1. Acute nondisplaced lateral right seventh rib fracture. No right pneumothorax/hemothorax. 2. Small left pleural effusion. 3. No acute intra-abdominal process. 4. Diffuse mild bladder wall thickening which could be due to chronic outlet obstruction or cystitis either acute or chronic. Labs Labs: Laboratory Results - last 24 hr 06/16/23 06/16/23 06/16/23 11:51 16:54 21:58 WBC RBC Hgb Hct MCV MCH MCHC RDW Plt Count MPV Immature Gran % (Auto) Neut % (Auto) Lymph % (Auto) [place] % (Auto) Eos % (Auto) Baso % (Auto) Lymph # (Auto) [place] # (Auto) Eos # (Auto) Baso # (Auto) Abs Immat Gran (auto) Absolute Neuts (auto) Absolute Nucleated RBC Nucleated RBC % Sodium Potassium Chloride Carbon Dioxide Anion Gap BUN Creatinine Estim Creat Clear Calc Estimated GFR Glucose POC Capillary Glucose 116 H 93 125 H Calcium Total Creatine Kinase 06/17/23 06/17/23 04:25 08:14 WBC 8.3 RBC 2.85 L Hgb 8.9 L Hct 28.2 L MCV 98.9 MCH 31.2 MCHC 31.6 L RDW 13.4 Plt Count 158 MPV 10.6 H Immature Gran % (Auto) 0.5 Neut % (Auto) 73.3 H Lymph % (Auto) 15.2 L [place] % (Auto) 9.9 H Eos % (Auto) 0.7 Baso % (Auto) 0.4 Lymph # (Auto) 1.26 [place] # (Auto) 0.8 H Eos # (Auto) 0.1 Baso # (Auto) 0.0 Abs Immat Gran (auto) 0.04 H Absolute Neuts (auto) 6.1 Absolute Nucleated RBC 0.000 Nucleated RBC % 0.0 Sodium 137 Potassium 2.9 L Chloride 107 Carbon Dioxide 27 Anion Gap 3 L BUN 29 H Creatinine 1.20 Estim Creat Clear Calc 40 Estimated GFR 58 L Glucose 96 POC Capillary Glucose 89 Calcium 8.1 L Total Creatine Kinase 02910 H
[2023-06-17] MEDS: POTASSIUM CHLORIDE INJ 40 MEQ in SODIUM CHLORIDE 0.9% IV 500 ML 130 MEQ IVPB (11:09)
[2023-06-17 11:54] LABS: Glucose Point of Care 106 mg/dl (65-105)
--- NOTE | 2023-06-17 13:26 | PC.NURSE ---
On 06/17/23, the student, [Mario Murillo], provided care and completed [facility] documentation on this patient. I have reviewed the student's documentation and agree with the findings.
--- NOTE | 2023-06-17 14:41 | PC.NURSE ---
On 06/17/23, the student, [Luzma Bishop], provided care and [facility]. I have reviewed the student's documentation and agree with the findings.
[2023-06-17 17:13] LABS: Glucose Point of Care 92 mg/dl (65-105)
[2023-06-17] MEDS: TAMSULOSIN HCL 0.4 MG CAPSULE PO (20:14)
[2023-06-18] VITALS (12 sets, daily range): BP systolic 96–159; BP diastolic 64–75; PULSE 52–83; RESP 16–24; TEMP 36.4–36.8; O2SAT 97–100
[2023-06-18 07:26] LABS: Glucose Point of Care 104 mg/dl (65-105)
[2023-06-18 07:26] LABS: Glucose Point of Care 116 mg/dl (65-105)
[2023-06-18 08:04] LABS: Glucose Point of Care 102 mg/dl (65-105)
[2023-06-18 08:46] LABS: Basophils Percent Auto 0.5 % (0.2-1.2); Eosinophils Absolute Auto 0.1 K/mm3 (0-0.3); Eosinophils Percent Auto 1.7 % (0-4.4); Hematocrit 32.6 % (42.0-52.0); Hemoglobin 10.7 g/dL (14.0-18.0); Immature Granulocyte Absolute 0.03 K/mm3 (0.00-0.031); Immature Granulocyte Percent A 0.4 % (0-0.5); Lymphocytes Absolute Auto 1.03 K/mm3 (0.9-3.2); Lymphocytes Percent Auto 13.2 % (18.3-44.2); Mean Corpuscular HGB Conc 32.8 g/dl (32-36); Mean Corpuscular Hemoglobin 31.7 pg (26-34); Mean Corpuscular Volume 96.4 fl (80-100); Monocytes Absolute Auto 0.6 K/mm3 (0.1-0.6); Monocytes Percent Auto 8.2 % (2.6-8.5); Neutrophils Absolute Auto 5.9 K/mm3 (1.3-6.7); Platelet Count Result 174 k/mm3 (150-375); Red Blood Count 3.38 M/mm3 (4.6-6.20); Red Cell Distribution Width 13.2 % (11.5-14.5); White Blood Count 7.8 K/mm3 (4.5-10.0)
[2023-06-18] MEDS: MIDODRINE HCL 2.5 MG TABLET 5 MG PO ×2 (08:53→17:07)
[2023-06-18] MEDS: ASPIRIN 81 MG CHEWABLE TABLET PO (08:54)
[2023-06-18] MEDS: DONEPEZIL HCL 10 MG TABLET PO (08:54)
[2023-06-18] MEDS: FUROSEMIDE INJ 40 MG/4 ML VIAL IV PUSH ×2 (08:54→17:07)
[2023-06-18] MEDS: CARBIDOPA/LEVODOPA 25/100 MG TABLET 3 TABLET PO ×4 (08:54→21:56)
[2023-06-18] MEDS: METOPROLOL TARTRATE 12.5 MG TABLET PO ×2 (08:55→21:57)
[2023-06-18] MEDS: ENOXAPARIN 40 MG/0.4 ML SYRINGE SUB-Q (08:55)
[2023-06-18 09:09] LABS: Alanine Aminotransferase 65 U/L (6-50); Albumin Level 3.4 g/dL (3.5-5.1); Alkaline Phosphatase 60 U/L (38-126); Anion Gap 0 mmol/L (4-12); Aspartate Amino Transferase 389 U/L (17-59); Bilirubin,Total 1.1 mg/dL (0.2-1.3); Blood Urea Nitrogen 22 mg/dL (9-20); Calcium 8.6 mg/dL (8.4-10.2); Carbon Dioxide 32 mmol/L (22-30); Chloride 101 mmol/L (98-107); Estimated CRCL calculation 48 ml/min; Estimated Glomerular Filt Rate > 60; Glucose 97 mg/dL (65-110); Potassium 3.5 mmol/L (3.4-5.0); Sodium 133 mmol/L (137-145)
[2023-06-18] MEDS: rOPINIRole HCL 0.5 MG TABLET 1.5 MG PO ×3 (11:48→21:57)
[2023-06-18 11:51] LABS: Glucose Point of Care 98 mg/dl (65-105)
--- NOTE | 2023-06-18 13:56 | P.PNIM_ITS ---
Progress Note: A&P Assessment and Plan (1) Rhabdomyolysis: Qualifiers: Encounter type: initial encounter Rhabdomyolysis type: traumatic Qualified Code(s): T79.6XXA - Traumatic ischemia of muscle, initial encounter Code(s): M62.82 - Rhabdomyolysis Status: Acute Assessment and Plan: * -check CK pending * K+ 3.5 * resume lasix 40mg BID * continue strict I&o * continue holding statin (2) Generalized weakness: Code(s): R53.1 - Weakness Status: Acute Assessment and Plan: * CT brain negative * CXR negative * CTA negative for acute process or changes * PT/OT recommend SNF * BC pending (3) Frequent falls: Code(s): R29.6 - Repeated falls Status: Acute Assessment and Plan: * XR showed right 7th rib fracture * CTA negative for acute process * PT/OT - SNF (4) Chronic kidney disease, stage 3: Code(s): N18.30 - Chronic kidney disease, stage 3 unspecified Status: Chronic Assessment and Plan: * creatinine now in normal range 1.00 * eGFR > 60 * continue to monitor trend (5) Parkinsons disease: Code(s): G20 - Parkinson's disease Status: Chronic Assessment and Plan: * will continue home meds * PT/OT Plan Continue home medications: VTE Prophylaxis: Enoxaparin subQ DIET: carbohydrate diet Anticipated hospital stay: > 2 days Code Status: DNR Subjective Date/time seen: 06/18/23 13:56 Interval history: Patient.up in the bed eating breakfast, no acute distress denies any overnight c/o K+ 3.5 Review of Systems Review of Systems: ROS unobtainable: Yes unobtainable due to mental status Exam Narrative: GENERAL: Elderly male resting in bed, no acute distress. Poor historian HEAD: Normocephalic, atraumatic. EYES: PERRLA and EOMI. ENT: Mucous membranes moist. NECK: supple CHEST: Lungs clear to auscultation. No respiratory distress. HEART: RRR. No murmur heard. Normal peripheral pulses. ABDOMEN: Soft, nontender, normoactive bowel sounds. EXTREMITIES: Normal range of motion. No edema. SKIN: Warm, dry. NEURO: No focal deficits. Alert and oriented x2. PSYCH: Appropriate, apathetic Objective Data Vital Signs Vital Signs: Vital Signs - 24 hr 06/17/23 14:00 06/17/23 16:00 06/17/23 18:33 Temperature 98.2 F 98.1 F Pulse Rate 68 76 77 Respiratory Rate 17 17 Blood Pressure 107/54 L 115/58 L Pulse Oximetry 97 100 Oxygen Delivery 06/17/23 20:14 06/17/23 20:10 06/17/23 20:03 Temperature Pulse Rate 75 75 68 Respiratory Rate 17 Blood Pressure Pulse Oximetry 100 Oxygen Delivery Room Air 06/17/23 22:40 06/18/23 00:01 06/18/23 04:03 Temperature 97.2 F L Pulse Rate 63 57 L 68 Respiratory Rate 20 Blood Pressure 141/63 H Pulse Oximetry 99 Oxygen Delivery 06/18/23 06:44 06/18/23 08:55 06/18/23 08:54 Temperature 98.0 F Pulse Rate 52 L 83 Respiratory Rate 20 Blood Pressure 159/75 H Pulse Oximetry 98 Oxygen Delivery Room Air 06/18/23 12:04 06/18/23 08:00 Temperature Pulse Rate 68 65 Respiratory Rate Blood Pressure Pulse Oximetry Oxygen Delivery Intake/Output Intake/Output: Intake & Output 06/15/23 06/16/23 06/17/23 06/18/23 23:59 23:59 23:59 23:59 Intake Total 2670 3178.3 4110 540 Output Total 1800 4150 5050 1770 Balance 870 -971.7 -940 -1230 Meds/Results Medications: Active Medications Generic Name Dose Route Start Last Admin Trade Name Freq PRN Reason Stop Dose Admin Acetaminophen 650 mg 06/15/23 14:55 Acetaminophen 325 Mg Tablet PO Q6H PRN Mild Pain (1-3) or Fever Aspirin 81 mg 06/16/23 09:00 06/18/23 08:54 Aspirin 81 Mg Chewable Tablet PO 81 mg DAILY MARIANA Administration Carbidopa/Levodopa 3 tablet 06/15/23 17:00 06/18/23 11:48 Carbidopa/Levodopa 25/100 Mg Tablet PO 3 tablet WMHS MARIANA Administration Donepezil HCl 10 mg 06/16/23 09:00 06/18/23 08:54 Donepezil Hcl 10 Mg Tablet PO 10 mg DAILY MARIANA Administration Enoxaparin Sodium 40 mg 06/17/23 09:00 06/18/23 08:55 Enoxaparin 40 Mg/0.4 Ml Syringe SUB-Q 40 mg DAILY MARIANA Administration Furosemide 40 mg 06/16/23 09:00 06/18/23 08:54 Furosemide Inj 40 Mg/4 Ml Vial IV PUSH 40 mg BID MARIANA Administration Metoprolol Tartrate 12.5 mg 06/15/23 21:00 06/18/23 08:55 Metoprolol Tartrate 12.5 Mg Tablet PO 12.5 mg Q12HR MARIANA Administration Miconazole Nitrate 1 applic 06/17/23 21:00 06/18/23 08:56 Miconazole 2% Antifungal Ointment 56 Gm TOPICAL 1 applic Q12HR MARIANA Administration Midodrine 5 mg 06/15/23 17:00 06/18/23 08:53 Midodrine Hcl 2.5 Mg Tablet PO 5 mg BID MARIANA Administration Potassium Chloride 20 meq 06/17/23 08:00 06/18/23 10:07 Potassium Chloride 20 Meq Packet (For Liquid) PO Not Given DAILY@0800 [facility] Ropinirole HCl 1.5 mg 06/15/23 16:30 06/18/23 11:48 Ropinirole Hcl 0.5 Mg Tablet PO 1.5 mg ACHS MARIANA Administration Rosuvastatin Calcium 10 mg 06/16/23 17:00 Rosuvastatin 10 Mg Tablet PO DAILY@1700 [facility] Tamsulosin HCl 0.4 mg 06/15/23 21:00 06/17/23 20:14 Tamsulosin Hcl 0.4 Mg Capsule PO 0.4 mg QHS MARIANA Administration Radiology Results: ITS Impressions Head CT 06/14/23 16:09 IMPRESSION: 1. No acute intracranial abnormality. Lumbar Spine CT 06/14/23 16:14 IMPRESSION: 1. Severe lower lumbar predominant spondylosis. 2. 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 No acute osseous abnormality at the lumbar spine or pelvis. 3. 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 ADDENDUM: 06/14/23 4285 ADDENDUM: Asymmetric masslike enlargement of the right seminal vesicle which raises concern for malignancy particularly if there is any prior history of prostate cancer. Correlate with clinical history and with PSA level. Dr. Wganer discussed these findings with Dr. Alvarado at 4:[address] 06/14/23 16:14 IMPRESSION: 1. Severe lower lumbar predominant spondylosis. 2. 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 No acute osseous abnormality at the lumbar spine or pelvis. 3. 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 ADDENDUM: 06/14/23 1653 ADDENDUM: Asymmetric masslike enlargement of the right seminal vesicle which raises concern for malignancy particularly if there is any prior history of prostate cancer. Correlate with clinical history and with PSA level. Dr. Wagner discussed these findings with Dr. Alvarado at 4:50 PM. Chest X-Ray 06/14/23 16:27 Impression: 1: No acute cardiopulmonary disease. Ribs X-Ray 06/15/23 12:03 IMPRESSION: 1. Right seventh rib fracture. Shoulder X-Ray 06/15/23 12:10 IMPRESSION: 1. Polyarticular osteoarthritis. Chest/Abdomen CT 06/16/23 09:10 IMPRESSION: 1. Acute nondisplaced lateral right seventh rib fracture. No right pneumothorax/hemothorax. 2. Small left pleural effusion. 3. No acute intra-abdominal process. 4. Diffuse mild bladder wall thickening which could be due to chronic outlet obstruction or cystitis either acute or chronic. Labs Labs: Laboratory Results - last 24 hr 06/17/23 06/17/23 06/17/23 17:10 19:47 19:48 WBC RBC Hgb Hct MCV MCH MCHC RDW Plt Count MPV Immature Gran % (Auto) Neut % (Auto) Lymph % (Auto) [place] % (Auto) Eos % (Auto) Baso % (Auto) Lymph # (Auto) [place] # (Auto) Eos # (Auto) Baso # (Auto) Abs Immat Gran (auto) Absolute Neuts (auto) Absolute Nucleated RBC Nucleated RBC % Sodium Potassium Chloride Carbon Dioxide Anion Gap BUN Creatinine Estim Creat Clear Calc Estimated GFR Glucose POC Capillary Glucose 92 116 H 104 Calcium Total Bilirubin AST ALT Alkaline Phosphatase Total Protein Albumin 06/18/23 06/18/23 06/18/23 08:02 08:33 11:49 WBC 7.8 RBC 3.38 L Hgb 10.7 L Hct 32.6 L MCV 96.4 MCH 31.7 MCHC 32.8 RDW 13.2 Plt Count 174 MPV 10.0 Immature Gran % (Auto) 0.4 Neut % (Auto) 76.0 H Lymph % (Auto) 13.2 L [place] % (Auto) 8.2 Eos % (Auto) 1.7 Baso % (Auto) 0.5 Lymph # (Auto) 1.03 [place] # (Auto) 0.6 Eos # (Auto) 0.1 Baso # (Auto) 0.0 Abs Immat Gran (auto) 0.03 Absolute Neuts (auto) 5.9 Absolute Nucleated RBC 0.000 Nucleated RBC % 0.0 Sodium 133 L Potassium 3.5 Chloride 101 Carbon Dioxide 32 H Anion Gap 0 L BUN 22 H Creatinine 1.00 Estim Creat Clear Calc 48 Estimated GFR > 60 Glucose 97 POC Capillary Glucose 102 98 Calcium 8.6 Total Bilirubin 1.1 AST 389 H ALT 65 H Alkaline Phosphatase 60 Total Protein 6.0 L Albumin 3.4 L Quality VTE Prophylaxis VTE prophylaxis: pharmacologic ordered
[2023-06-18 16:42] LABS: Glucose Point of Care 91 mg/dl (65-105)
[2023-06-18 17:47] LABS: Creatinine Urine 77.2 mg/dL; Total Protein Urine Random 15 mg/dL; Ur Ttl Prot Creatinine Ratio 0.19 mg/mg (0-0.20)
--- NOTE | 2023-06-18 18:34 | PC.NURSE ---
Pt has participated and contributed in plan of care. Pt denied pain when asked. Pt up to chair with therapy this afternoon. Pt urinating post dotson removal. Pt prompted to urinate to empty bladder with minimal post void residual. Pt takes medication crushed in applesauce or pudding. Pt compliant with care. Will continue to monitor pt.
[2023-06-18 21:39] LABS: Glucose Point of Care 97 mg/dl (65-105)
[2023-06-18] MEDS: TAMSULOSIN HCL 0.4 MG CAPSULE PO (21:58)
[2023-06-19] VITALS (10 sets, daily range): BP systolic 101–153; BP diastolic 62–73; PULSE 54–87; RESP 16–18; TEMP 36.3–36.4; O2SAT 97–100
[2023-06-19 05:12] LABS: Basophils Percent Auto 0.3 % (0.2-1.2); Eosinophils Absolute Auto 0.2 K/mm3 (0-0.3); Eosinophils Percent Auto 3.3 % (0-4.4); Hematocrit 32.8 % (42.0-52.0); Hemoglobin 10.7 g/dL (14.0-18.0); Immature Granulocyte Absolute 0.03 K/mm3 (0.00-0.031); Immature Granulocyte Percent A 0.5 % (0-0.5); Lymphocytes Absolute Auto 1.32 K/mm3 (0.9-3.2); Lymphocytes Percent Auto 20.6 % (18.3-44.2); Mean Corpuscular HGB Conc 32.6 g/dl (32-36); Mean Corpuscular Hemoglobin 31.8 pg (26-34); Mean Corpuscular Volume 97.3 fl (80-100); Mean Platelet Volume 10.5 fl (7.4-10.4); Monocytes Absolute Auto 0.6 K/mm3 (0.1-0.6); Monocytes Percent Auto 8.6 % (2.6-8.5); Neutrophils Absolute Auto 4.3 K/mm3 (1.3-6.7); Neutrophils Percent Auto 66.7 % (45.5-73.1); Platelet Count Result 186 k/mm3 (150-375); Red Blood Count 3.37 M/mm3 (4.6-6.20); Red Cell Distribution Width 13.2 % (11.5-14.5); White Blood Count 6.4 K/mm3 (4.5-10.0)
[2023-06-19 05:24] LABS: Alanine Aminotransferase 25 U/L (6-50); Albumin Level 3.4 g/dL (3.5-5.1); Alkaline Phosphatase 60 U/L (38-126); Anion Gap 1 mmol/L (4-12); Aspartate Amino Transferase 257 U/L (17-59); Bilirubin,Total 0.9 mg/dL (0.2-1.3); Blood Urea Nitrogen 28 mg/dL (9-20); Carbon Dioxide 34 mmol/L (22-30); Chloride 100 mmol/L (98-107); Estimated CRCL calculation 44 ml/min; Estimated Glomerular Filt Rate > 60; Glucose 96 mg/dL (65-110); Potassium 3.4 mmol/L (3.4-5.0); Sodium 135 mmol/L (137-145)
[2023-06-19] MEDS: rOPINIRole HCL 0.5 MG TABLET 1.5 MG PO ×4 (07:56→20:00)
[2023-06-19 08:07] LABS: Glucose Point of Care 98 mg/dl (65-105)
[2023-06-19] MEDS: METOPROLOL TARTRATE 12.5 MG TABLET PO ×2 (08:10→19:59)
[2023-06-19] MEDS: CARBIDOPA/LEVODOPA 25/100 MG TABLET 3 TABLET PO ×4 (08:10→19:59)
[2023-06-19] MEDS: ASPIRIN 81 MG CHEWABLE TABLET PO (08:10)
[2023-06-19] MEDS: POTASSIUM CHLORIDE 20 MEQ PACKET (FOR LIQUID) PO (08:10)
[2023-06-19] MEDS: MIDODRINE HCL 2.5 MG TABLET 5 MG PO ×2 (08:10→16:59)
[2023-06-19] MEDS: ENOXAPARIN 40 MG/0.4 ML SYRINGE SUB-Q (08:11)
[2023-06-19] MEDS: FUROSEMIDE INJ 40 MG/4 ML VIAL IV PUSH ×2 (08:11→16:59)
[2023-06-19] MEDS: DONEPEZIL HCL 10 MG TABLET PO (08:11)
[2023-06-19 11:38] LABS: Glucose Point of Care 107 mg/dl (65-105)
--- NOTE | 2023-06-19 12:06 | P.PNIM_ITS ---
Progress Note: A&P Assessment and Plan (1) Rhabdomyolysis: Qualifiers: Encounter type: initial encounter Rhabdomyolysis type: traumatic Qualified Code(s): T79.6XXA - Traumatic ischemia of muscle, initial encounter Code(s): M62.82 - Rhabdomyolysis Status: Acute Assessment and Plan: * [place] [address] * Continue lasix 40mg BID * continue strict I&o * continue holding statin (2) Generalized weakness: Code(s): R53.1 - Weakness Status: Acute Assessment and Plan: * CT brain negative * CXR negative * CTA negative for acute process or changes * Waiting SNF placement * BC preliminary result no growth today (3) Frequent falls: Code(s): R29.6 - Repeated falls Status: Acute Assessment and Plan: * XR showed right 7th rib fracture * CTA negative for acute process * PT/OT - SNF (4) Chronic kidney disease, stage 3: Code(s): N18.30 - Chronic kidney disease, stage 3 unspecified Status: Chronic Assessment and Plan: * creatinine now in normal range 1.00 * eGFR > 60 * continue to monitor trend (5) Parkinsons disease: Code(s): G20 - Parkinson's disease Status: Chronic Assessment and Plan: * will continue home meds * PT/OT Plan Continue home medications: VTE Prophylaxis: Enoxaparin subQ DIET: carbohydrate diet Anticipated hospital stay: > 2 days Code Status: DNR Time Spent With Patient Time with patient: 25 - 35 minutes Subjective Date/time seen: 06/19/23 12:06 Interval history: pt seen this morning, he is sitting chairside, in no acute distress, he denies any overnight events. AST 257, waiting for rehab placement. Review of Systems Review of Systems: All systems reviewed & are unremarkable except as noted in HPI and below ROS unobtainable: Yes unobtainable due to mental status Exam Narrative: GENERAL: Elderly male resting in bed, no acute distress. Poor historian HEAD: Normocephalic, atraumatic. EYES: PERRLA and EOMI. ENT: Mucous membranes moist. NECK: supple CHEST: Lungs clear to auscultation. No respiratory distress. HEART: RRR. No murmur heard. Normal peripheral pulses. ABDOMEN: Soft, nontender, normoactive bowel sounds. EXTREMITIES: Normal range of motion. No edema. SKIN: Warm, dry. NEURO: No focal deficits. Alert and oriented x2. PSYCH: Appropriate, apathetic Objective Data Vital Signs Vital Signs: Vital Signs - 24 hr 06/18/23 14:05 06/18/23 17:07 06/18/23 16:20 Temperature 98.3 F 98.3 F Pulse Rate 66 66 73 Respiratory Rate 24 H 20 Blood Pressure 96/64 L 119/70 Pulse Oximetry 97 100 Oxygen Delivery 06/18/23 21:51 06/18/23 21:57 06/18/23 20:00 Temperature 97.6 F Pulse Rate 57 L 65 59 L Respiratory Rate 16 Blood Pressure 135/75 Pulse Oximetry 99 Oxygen Delivery 06/18/23 20:00 06/19/23 00:00 06/19/23 04:00 Temperature Pulse Rate 55 L 67 Respiratory Rate Blood Pressure Pulse Oximetry 99 Oxygen Delivery Room Air 06/19/23 06:00 06/19/23 08:00 06/19/23 08:00 Temperature 97.5 F L Pulse Rate 54 L 87 Respiratory Rate 16 Blood Pressure 153/73 H Pulse Oximetry 98 Oxygen Delivery Room Air Intake/Output Intake/Output: Intake & Output 06/16/23 06/17/23 06/18/23 06/19/23 23:59 23:59 23:59 23:59 Intake Total 3178.3 4110 1080 415 Output Total 4150 5050 2020 625 Balance -971.7 -940 -940 -210 Meds/Results Medications: Active Medications Generic Name Dose Route Start Last Admin Trade Name Freq PRN Reason Stop Dose Admin Acetaminophen 650 mg 06/15/23 14:55 Acetaminophen 325 Mg Tablet PO Q6H PRN Mild Pain (1-3) or Fever Aspirin 81 mg 06/16/23 09:00 06/19/23 08:10 Aspirin 81 Mg Chewable Tablet PO 81 mg DAILY [facility]IANA Administration Carbidopa/Levodopa 3 tablet 06/15/23 17:00 06/19/23 12:03 Carbidopa/Levodopa 25/100 Mg Tablet PO 3 tablet WMHS MARIANA Administration Donepezil HCl 10 mg 06/16/23 09:00 06/19/23 08:11 Donepezil Hcl 10 Mg Tablet PO 10 mg DAILY [facility]IANA Administration Enoxaparin Sodium 40 mg 06/17/23 09:00 06/19/23 08:11 Enoxaparin 40 Mg/0.4 Ml Syringe SUB-Q 40 mg DAILY [facility]IANA Administration Furosemide 40 mg 06/16/23 09:00 06/19/23 08:11 Furosemide Inj 40 Mg/4 Ml Vial IV PUSH 40 mg BID MARIANA Administration Metoprolol Tartrate 12.5 mg 06/15/23 21:00 06/19/23 08:10 Metoprolol Tartrate 12.5 Mg Tablet PO 12.5 mg Q12HR MARIANA Administration Miconazole Nitrate 1 applic 06/17/23 21:00 06/19/23 08:11 Miconazole 2% Antifungal Ointment 56 Gm TOPICAL 1 applic Q12HR MARIANA Administration Midodrine 5 mg 06/15/23 17:00 06/19/23 08:10 Midodrine Hcl 2.5 Mg Tablet PO 5 mg BID MARIANA Administration Potassium Chloride 20 meq 06/17/23 08:00 06/19/23 08:10 Potassium Chloride 20 Meq Packet (For Liquid) PO 20 meq DAILY@0800 MARIANA Administration Ropinirole HCl 1.5 mg 06/15/23 16:30 06/19/23 12:02 Ropinirole Hcl 0.5 Mg Tablet PO 1.5 mg ACHS MARIANA Administration Rosuvastatin Calcium 10 mg 06/16/23 17:00 Rosuvastatin 10 Mg Tablet PO DAILY@1700 MARIANA Tamsulosin HCl 0.4 mg 06/15/23 21:00 06/18/23 21:58 Tamsulosin Hcl 0.4 Mg Capsule PO 0.4 mg QHS MARIANA Administration Radiology Results: ITS Impressions Head CT 06/14/23 16:09 IMPRESSION: 1. No acute intracranial abnormality. Lumbar Spine CT 06/14/23 16:14 IMPRESSION: 1. Severe lower lumbar predominant spondylosis. 2. 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 No acute osseous abnormality at the lumbar spine or pelvis. 3. 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 ADDENDUM: 06/14/23 3027 ADDENDUM: Asymmetric masslike enlargement of the right seminal vesicle which raises concern for malignancy particularly if there is any prior history of prostate cancer. Correlate with clinical history and with PSA level. Dr. Wagner discussed these findings with Dr. Alvarado at 4:[address] 06/14/23 16:14 IMPRESSION: 1. Severe lower lumbar predominant spondylosis. 2. 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 No acute osseous abnormality at the lumbar spine or pelvis. 3. 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 ADDENDUM: 06/14/23 1653 ADDENDUM: Asymmetric masslike enlargement of the right seminal vesicle which raises concern for malignancy particularly if there is any prior history of prostate cancer. Correlate with clinical history and with PSA level. Dr. Wagner discussed these findings with Dr. Alvarado at 4:50 PM. Chest X-Ray 06/14/23 16:27 Impression: 1: No acute cardiopulmonary disease. Ribs X-Ray 06/15/23 12:03 IMPRESSION: 1. Right seventh rib fracture. Shoulder X-Ray 06/15/23 12:10 IMPRESSION: 1. Polyarticular osteoarthritis. Chest/Abdomen CT 06/16/23 09:10 IMPRESSION: 1. Acute nondisplaced lateral right seventh rib fracture. No right pneumothorax/hemothorax. 2. Small left pleural effusion. 3. No acute intra-abdominal process. 4. Diffuse mild bladder wall thickening which could be due to chronic outlet obstruction or cystitis either acute or chronic. Labs Labs: Laboratory Results - last 24 hr 06/18/23 06/18/23 06/18/23 16:39 17:02 20:42 WBC RBC Hgb Hct MCV MCH MCHC RDW Plt Count MPV Immature Gran % (Auto) Neut % (Auto) Lymph % (Auto) [place] % (Auto) Eos % (Auto) Baso % (Auto) Lymph # (Auto) [place] # (Auto) Eos # (Auto) Baso # (Auto) Abs Immat Gran (auto) Absolute Neuts (auto) Absolute Nucleated RBC Nucleated RBC % Sodium Potassium Chloride Carbon Dioxide Anion Gap BUN Creatinine Estim Creat Clear Calc Estimated GFR Glucose POC Capillary Glucose 91 97 Calcium Total Bilirubin AST ALT Alkaline Phosphatase Total Protein Albumin U Random Total Protein 15 Urine Creatinine 77.2 Protein/Creat Ratio 2 0.19 06/19/23 06/19/23 06/19/23 04:46 08:05 11:33 WBC 6.4 RBC 3.37 L Hgb 10.7 L Hct 32.8 L MCV 97.3 MCH 31.8 MCHC 32.6 RDW 13.2 Plt Count 186 MPV 10.5 H Immature Gran % (Auto) 0.5 Neut % (Auto) 66.7 Lymph % (Auto) 20.6 [place] % (Auto) 8.6 H Eos % (Auto) 3.3 Baso % (Auto) 0.3 Lymph # (Auto) 1.32 [place] # (Auto) 0.6 Eos # (Auto) 0.2 Baso # (Auto) 0.0 Abs Immat Gran (auto) 0.03 Absolute Neuts (auto) 4.3 Absolute Nucleated RBC 0.000 Nucleated RBC % 0.0 Sodium 135 L Potassium 3.4 Chloride 100 Carbon Dioxide 34 H Anion Gap 1 L BUN 28 H Creatinine 1.10 Estim Creat Clear Calc 44 Estimated GFR > 60 Glucose 96 POC Capillary Glucose 98 107 H Calcium 9.0 Total Bilirubin 0.9 AST 257 H ALT 25 Alkaline Phosphatase 60 Total Protein 6.0 L Albumin 3.4 L U Random Total Protein Urine Creatinine Protein/Creat Ratio 2 Quality VTE Prophylaxis VTE prophylaxis: pharmacologic ordered
[2023-06-19 16:01] LABS: Creatine Kinase 6302 U/L (55-170)
[2023-06-19 16:58] LABS: Glucose Point of Care 95 mg/dl (65-105)
[2023-06-19] MEDS: TAMSULOSIN HCL 0.4 MG CAPSULE PO (19:59)
[2023-06-19 21:53] LABS: Glucose Point of Care 110 mg/dl (65-105)
[2023-06-20] VITALS (11 sets, daily range): BP systolic 106–127; BP diastolic 58–75; PULSE 58–90; RESP 14–18; TEMP 34.7–36.6; O2SAT 96–100
[2023-06-20 05:10] LABS: Basophils Percent Auto 0.7 % (0.2-1.2); Eosinophils Absolute Auto 0.2 K/mm3 (0-0.3); Eosinophils Percent Auto 3.3 % (0-4.4); Hematocrit 31.6 % (42.0-52.0); Hemoglobin 10.5 g/dL (14.0-18.0); Immature Granulocyte Absolute 0.04 K/mm3 (0.00-0.031); Immature Granulocyte Percent A 0.7 % (0-0.5); Lymphocytes Absolute Auto 1.29 K/mm3 (0.9-3.2); Lymphocytes Percent Auto 21.2 % (18.3-44.2); Mean Corpuscular HGB Conc 33.2 g/dl (32-36); Mean Corpuscular Hemoglobin 31.7 pg (26-34); Mean Corpuscular Volume 95.5 fl (80-100); Mean Platelet Volume 10.2 fl (7.4-10.4); Monocytes Absolute Auto 0.6 K/mm3 (0.1-0.6); Monocytes Percent Auto 10.3 % (2.6-8.5); Neutrophils Absolute Auto 3.9 K/mm3 (1.3-6.7); Neutrophils Percent Auto 63.8 % (45.5-73.1); Platelet Count Result 198 k/mm3 (150-375); Red Blood Count 3.31 M/mm3 (4.6-6.20); Red Cell Distribution Width 13.2 % (11.5-14.5); White Blood Count 6.1 K/mm3 (4.5-10.0)
[2023-06-20 05:36] LABS: Alanine Aminotransferase 34 U/L (6-50); Albumin Level 3.3 g/dL (3.5-5.1); Alkaline Phosphatase 58 U/L (38-126); Anion Gap 2 mmol/L (4-12); Aspartate Amino Transferase 160 U/L (17-59); Bilirubin,Total 0.8 mg/dL (0.2-1.3); Blood Urea Nitrogen 32 mg/dL (9-20); Calcium 8.8 mg/dL (8.4-10.2); Carbon Dioxide 31 mmol/L (22-30); Chloride 98 mmol/L (98-107); Estimated CRCL calculation 44 ml/min; Estimated Glomerular Filt Rate > 60; Glucose 97 mg/dL (65-110); Sodium 131 mmol/L (137-145)
[2023-06-20] MEDS: rOPINIRole HCL 0.5 MG TABLET 1.5 MG PO ×4 (06:37→21:05)
[2023-06-20 08:18] LABS: Glucose Point of Care 89 mg/dl (65-105)
[2023-06-20] MEDS: POTASSIUM CHLORIDE INJ 40 MEQ in SODIUM CHLORIDE 0.9% IV 500 ML 130 MEQ IVPB (08:24)
[2023-06-20] MEDS: MIDODRINE HCL 2.5 MG TABLET 5 MG PO ×2 (08:24→16:36)
[2023-06-20] MEDS: DONEPEZIL HCL 10 MG TABLET PO (08:24)
[2023-06-20] MEDS: POTASSIUM CHLORIDE 20 MEQ PACKET (FOR LIQUID) PO (08:24)
[2023-06-20] MEDS: METOPROLOL TARTRATE 12.5 MG TABLET PO ×2 (08:25→21:05)
[2023-06-20] MEDS: FUROSEMIDE INJ 40 MG/4 ML VIAL IV PUSH (08:25)
[2023-06-20] MEDS: ENOXAPARIN 40 MG/0.4 ML SYRINGE SUB-Q (08:25)
[2023-06-20] MEDS: ASPIRIN 81 MG CHEWABLE TABLET PO (08:25)
[2023-06-20] MEDS: CARBIDOPA/LEVODOPA 25/100 MG TABLET 3 TABLET PO ×4 (08:25→21:05)
--- NOTE | 2023-06-20 09:15 | PCPTNOTE ---
Attempted to see patient for PT, however patient was eating breakfast.
[2023-06-20 11:59] LABS: Glucose Point of Care 93 mg/dl (65-105)
--- NOTE | 2023-06-20 12:52 | P.PNIM_ITS ---
Progress Note: A&P Assessment and Plan (1) Rhabdomyolysis: Qualifiers: Encounter type: initial encounter Rhabdomyolysis type: traumatic Qualified Code(s): T79.6XXA - Traumatic ischemia of muscle, initial encounter Code(s): M62.82 - Rhabdomyolysis Status: Acute Assessment and Plan: * Last CK was 6302 * Continue lasix 40mg BID * continue strict I&O * continue holding statin (2) Generalized weakness: Code(s): R53.1 - Weakness Status: Acute Assessment and Plan: * CT brain negative * CXR negative * CTA negative for acute process or changes * Waiting SNF placement * BC negative (3) Frequent falls: Code(s): R29.6 - Repeated falls Status: Acute Assessment and Plan: * XR showed right 7th rib fracture * CTA negative for acute process * PT/OT - SNF (4) Chronic kidney disease, stage 3: Code(s): N18.30 - Chronic kidney disease, stage 3 unspecified Status: Chronic Assessment and Plan: * creatinine now in normal range 1.10 * eGFR > 60 * continue to monitor trend (5) Parkinsons disease: Code(s): G20 - Parkinson's disease Status: Chronic Assessment and Plan: * will continue home meds * PT/OT Subjective Date/time seen: 06/20/23 12:52 Interval history: Patient in no distress this morning. P2P attempted for [facility], but not approved. Discussed with medical services assistant and will approve SNF. CC notified and following. Review of Systems Review of Systems: All systems reviewed & are unremarkable except as noted in HPI and below ROS unobtainable: Yes unobtainable due to mental status Exam Narrative: GENERAL: Elderly male sitting in chair, no acute distress. HEAD: Normocephalic, atraumatic. EYES: PERRLA and EOMI. ENT: Mucous membranes moist. NECK: supple CHEST: Lungs clear to auscultation. No respiratory distress. HEART: RRR. No murmur heard. Normal peripheral pulses. ABDOMEN: Soft, nontender, normoactive bowel sounds. EXTREMITIES: Normal range of motion. No edema. SKIN: Warm, dry. NEURO: No focal deficits. Alert and oriented x2. PSYCH: Appropriate, apathetic Objective Data Vital Signs Vital Signs: Vital Signs - 24 hr 06/19/23 13:59 06/19/23 16:00 06/19/23 19:31 Temperature 97.5 F L 97.3 F L Pulse Rate 68 69 77 Respiratory Rate 18 18 Blood Pressure 101/62 117/67 Pulse Oximetry 100 97 Oxygen Delivery 06/19/23 19:59 06/19/23 19:50 06/19/23 20:00 Temperature Pulse Rate 77 80 Respiratory Rate Blood Pressure Pulse Oximetry Oxygen Delivery Room Air 06/20/23 00:00 06/20/23 04:00 06/20/23 05:56 Temperature 97.9 F Pulse Rate 58 L 61 63 Respiratory Rate 18 Blood Pressure 125/71 Pulse Oximetry 100 Oxygen Delivery 06/20/23 08:00 06/20/23 08:00 06/20/23 12:00 Temperature Pulse Rate 74 78 Respiratory Rate Blood Pressure Pulse Oximetry Oxygen Delivery Room Air Intake/Output Intake/Output: Intake & Output 06/17/23 06/18/23 06/19/23 06/20/23 23:59 23:59 23:59 23:59 Intake Total 4110 1080 1445 360 Output Total 5050 2020 1025 300 Balance -940 -940 420 60 Meds/Results Medications: Active Medications Generic Name Dose Route Start Last Admin Trade Name Freq PRN Reason Stop Dose Admin Acetaminophen 650 mg 06/15/23 14:55 Acetaminophen 325 Mg Tablet PO Q6H PRN Mild Pain (1-3) or Fever Aspirin 81 mg 06/16/23 09:00 06/20/23 08:25 Aspirin 81 Mg Chewable Tablet PO 81 mg DAILY MARIANA Administration Carbidopa/Levodopa 3 tablet 06/15/23 17:00 06/20/23 12:00 Carbidopa/Levodopa 25/100 Mg Tablet PO 3 tablet WMHS MARIANA Administration Donepezil HCl 10 mg 06/16/23 09:00 06/20/23 08:24 Donepezil Hcl 10 Mg Tablet PO 10 mg DAILY MARIANA Administration Enoxaparin Sodium 40 mg 06/17/23 09:00 06/20/23 08:25 Enoxaparin 40 Mg/0.4 Ml Syringe SUB-Q 40 mg DAILY MARIANA Administration Furosemide 40 mg 06/16/23 09:00 06/20/23 08:25 Furosemide Inj 40 Mg/4 Ml Vial IV PUSH 40 mg BID MARIANA Administration Metoprolol Tartrate 12.5 mg 06/15/23 21:00 06/20/23 08:25 Metoprolol Tartrate 12.5 Mg Tablet PO 12.5 mg Q12HR MARIANA Administration Miconazole Nitrate 1 applic 06/17/23 21:00 06/20/23 08:25 Miconazole 2% Antifungal Ointment 56 Gm TOPICAL 1 applic Q12HR MARIANA Administration Midodrine 5 mg 06/15/23 17:00 06/20/23 08:24 Midodrine Hcl 2.5 Mg Tablet PO 5 mg BID MARIANA Administration Potassium Chloride 20 meq 06/17/23 08:00 06/20/23 08:24 Potassium Chloride 20 Meq Packet (For Liquid) PO 20 meq DAILY@0800 MARIANA Administration Ropinirole HCl 1.5 mg 06/15/23 16:30 06/20/23 12:00 Ropinirole Hcl 0.5 Mg Tablet PO 1.5 mg ACHS MARIANA Administration Rosuvastatin Calcium 10 mg 06/16/23 17:00 Rosuvastatin 10 Mg Tablet PO DAILY@1700 MARIANA Tamsulosin HCl 0.4 mg 06/15/23 21:00 06/19/23 19:59 Tamsulosin Hcl 0.4 Mg Capsule PO 0.4 mg QHS MARIANA Administration Radiology Results: ITS Impressions Head CT 06/14/23 16:09 IMPRESSION: 1. No acute intracranial abnormality. Lumbar Spine CT 06/14/23 16:14 IMPRESSION: 1. Severe lower lumbar predominant spondylosis. 2. 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 No acute osseous abnormality at the lumbar spine or pelvis. 3. 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 ADDENDUM: 06/14/23 1653 ADDENDUM: Asymmetric masslike enlargement of the right seminal vesicle which raises concern for malignancy particularly if there is any prior history of prostate cancer. Correlate with clinical history and with PSA level. Dr. Wagner discussed these findings with Dr. Alvarado at 4:[address] 06/14/23 16:14 IMPRESSION: 1. Severe lower lumbar predominant spondylosis. 2. 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 No acute osseous abnormality at the lumbar spine or pelvis. 3. 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 ADDENDUM: 06/14/23 1653 ADDENDUM: Asymmetric masslike enlargement of the right seminal vesicle which raises concern for malignancy particularly if there is any prior history of prostate cancer. Correlate with clinical history and with PSA level. Dr. Wagner discussed these findings with Dr. Alvarado at 4:50 PM. Chest X-Ray 06/14/23 16:27 Impression: 1: No acute cardiopulmonary disease. Ribs X-Ray 06/15/23 12:03 IMPRESSION: 1. Right seventh rib fracture. Shoulder X-Ray 06/15/23 12:10 IMPRESSION: 1. Polyarticular osteoarthritis. Chest/Abdomen CT 06/16/23 09:10 IMPRESSION: 1. Acute nondisplaced lateral right seventh rib fracture. No right pneumothorax/hemothorax. 2. Small left pleural effusion. 3. No acute intra-abdominal process. 4. Diffuse mild bladder wall thickening which could be due to chronic outlet obstruction or cystitis either acute or chronic. Labs Labs: Laboratory Results - last 24 hr 06/19/23 06/19/23 06/19/23 04:46 16:55 19:56 WBC RBC Hgb Hct MCV MCH MCHC RDW Plt Count MPV Immature Gran % (Auto) Neut % (Auto) Lymph % (Auto) [place] % (Auto) Eos % (Auto) Baso % (Auto) Lymph # (Auto) [place] # (Auto) Eos # (Auto) Baso # (Auto) Abs Immat Gran (auto) Absolute Neuts (auto) Absolute Nucleated RBC Nucleated RBC % Sodium Potassium Chloride Carbon Dioxide Anion Gap BUN Creatinine Estim Creat Clear Calc Estimated GFR Glucose POC Capillary Glucose 95 110 H Calcium Total Bilirubin AST ALT Alkaline Phosphatase Total Creatine Kinase 6302 H Total Protein Albumin 06/20/23 06/20/23 06/20/23 04:49 08:13 11:56 WBC 6.1 RBC 3.31 L Hgb 10.5 L Hct 31.6 L MCV 95.5 MCH 31.7 MCHC 33.2 RDW 13.2 Plt Count 198 MPV 10.2 Immature Gran % (Auto) 0.7 H Neut % (Auto) 63.8 Lymph % (Auto) 21.2 [place] % (Auto) 10.3 H Eos % (Auto) 3.3 Baso % (Auto) 0.7 Lymph # (Auto) 1.29 [place] # (Auto) 0.6 Eos # (Auto) 0.2 Baso # (Auto) 0.0 Abs Immat Gran (auto) 0.04 H Absolute Neuts (auto) 3.9 Absolute Nucleated RBC 0.000 Nucleated RBC % 0.0 Sodium 131 L Potassium 3.0 L Chloride 98 Carbon Dioxide 31 H Anion Gap 2 L BUN 32 H Creatinine 1.10 Estim Creat Clear Calc 44 Estimated GFR > 60 Glucose 97 POC Capillary Glucose 89 93 Calcium 8.8 Total Bilirubin 0.8 AST 160 H ALT 34 Alkaline Phosphatase 58 Total Creatine Kinase Total Protein 6.0 L Albumin 3.3 L Quality VTE Prophylaxis VTE prophylaxis: pharmacologic ordered
[2023-06-20 15:04] LABS: Potassium 3.7 mmol/L (3.4-5.0)
[2023-06-20 16:49] LABS: Glucose Point of Care 102 mg/dl (65-105)
[2023-06-20 20:33] LABS: Glucose Point of Care 136 mg/dl (65-105)
[2023-06-20] MEDS: TAMSULOSIN HCL 0.4 MG CAPSULE PO (21:04)
[2023-06-21] VITALS (13 sets, daily range): BP systolic 78–124; BP diastolic 50–68; PULSE 56–106; RESP 13–16; TEMP 36.1–36.7; O2SAT 96–100
[2023-06-21 05:32] LABS: Basophils Percent Auto 0.7 % (0.2-1.2); Eosinophils Absolute Auto 0.2 K/mm3 (0-0.3); Eosinophils Percent Auto 3.4 % (0-4.4); Hematocrit 33.9 % (42.0-52.0); Hemoglobin 10.9 g/dL (14.0-18.0); Immature Granulocyte Absolute 0.05 K/mm3 (0.00-0.031); Immature Granulocyte Percent A 0.8 % (0-0.5); Lymphocytes Absolute Auto 1.45 K/mm3 (0.9-3.2); Lymphocytes Percent Auto 24.4 % (18.3-44.2); Mean Corpuscular HGB Conc 32.2 g/dl (32-36); Mean Corpuscular Hemoglobin 31.5 pg (26-34); Mean Platelet Volume 10.3 fl (7.4-10.4); Monocytes Absolute Auto 0.5 K/mm3 (0.1-0.6); Monocytes Percent Auto 8.6 % (2.6-8.5); Neutrophils Absolute Auto 3.7 K/mm3 (1.3-6.7); Neutrophils Percent Auto 62.1 % (45.5-73.1); Platelet Count Result 233 k/mm3 (150-375); Red Blood Count 3.46 M/mm3 (4.6-6.20); Red Cell Distribution Width 13.3 % (11.5-14.5); White Blood Count 5.9 K/mm3 (4.5-10.0)
[2023-06-21] MEDS: rOPINIRole HCL 0.5 MG TABLET 1.5 MG PO ×4 (05:46→21:16)
[2023-06-21 05:54] LABS: Alanine Aminotransferase 29 U/L (6-50); Albumin Level 3.6 g/dL (3.5-5.1); Alkaline Phosphatase 65 U/L (38-126); Anion Gap 4 mmol/L (4-12); Aspartate Amino Transferase 131 U/L (17-59); Bilirubin,Total 0.8 mg/dL (0.2-1.3); Blood Urea Nitrogen 32 mg/dL (9-20); Calcium 9.1 mg/dL (8.4-10.2); Carbon Dioxide 31 mmol/L (22-30); Chloride 98 mmol/L (98-107); Estimated CRCL calculation 44 ml/min; Estimated Glomerular Filt Rate > 60; Glucose 89 mg/dL (65-110); Potassium 3.4 mmol/L (3.4-5.0); Sodium 133 mmol/L (137-145)
[2023-06-21 08:15] LABS: Glucose Point of Care 86 mg/dl (65-105)
[2023-06-21] MEDS: ENOXAPARIN 40 MG/0.4 ML SYRINGE SUB-Q (09:40)
[2023-06-21] MEDS: METOPROLOL TARTRATE 12.5 MG TABLET PO ×2 (09:41→21:12)
[2023-06-21] MEDS: MIDODRINE HCL 2.5 MG TABLET 5 MG PO ×2 (09:41→17:06)
[2023-06-21] MEDS: DONEPEZIL HCL 10 MG TABLET PO (09:41)
[2023-06-21] MEDS: ASPIRIN 81 MG CHEWABLE TABLET PO (09:41)
[2023-06-21] MEDS: FUROSEMIDE INJ 40 MG/4 ML VIAL IV PUSH (09:41)
[2023-06-21] MEDS: CARBIDOPA/LEVODOPA 25/100 MG TABLET 3 TABLET PO ×4 (09:41→21:12)
[2023-06-21] MEDS: POTASSIUM CHLORIDE 20 MEQ PACKET (FOR LIQUID) PO (09:42)
[2023-06-21 12:18] LABS: Glucose Point of Care 135 mg/dl (65-105)
--- NOTE | 2023-06-21 15:22 | P.PNIM_ITS ---
Progress Note: A&P Assessment and Plan (1) Rhabdomyolysis: Qualifiers: Encounter type: initial encounter Rhabdomyolysis type: traumatic Qualified Code(s): T79.6XXA - Traumatic ischemia of muscle, initial encounter Code(s): M62.82 - Rhabdomyolysis Status: Acute Assessment and Plan: * Last CK was 6302, recheck in am * Continue lasix 40mg daily * continue strict I&O * continue holding statin (2) Generalized weakness: Code(s): R53.1 - Weakness Status: Acute Assessment and Plan: * CT brain negative * CXR negative * CTA negative for acute process or changes * Waiting SNF placement * BC negative (3) Frequent falls: Code(s): R29.6 - Repeated falls Status: Acute Assessment and Plan: * XR showed right 7th rib fracture * CTA negative for acute process * PT/OT - SNF (4) Chronic kidney disease, stage 3: Code(s): N18.30 - Chronic kidney disease, stage 3 unspecified Status: Chronic Assessment and Plan: * creatinine now in normal range 1.10 * eGFR > 60 * continue to monitor trend (5) Parkinsons disease: Code(s): G20 - Parkinson's disease Status: Chronic Assessment and Plan: * will continue home meds * PT/OT Subjective Date/time seen: 06/21/23 15:22 Interval history: Patient in no distress this morning. He is sitting up eating breakfast and denies pain. He is awaiting placement to SNF. Review of Systems Review of Systems: All systems reviewed & are unremarkable except as noted in HPI and below ROS unobtainable: Yes unobtainable due to mental status Exam Narrative: GENERAL: Elderly male sitting in chair, no acute distress. HEAD: Normocephalic, atraumatic. EYES: PERRLA and EOMI. ENT: Mucous membranes moist. NECK: supple CHEST: Lungs clear to auscultation. No respiratory distress. HEART: RRR. No murmur heard. Normal peripheral pulses. ABDOMEN: Soft, nontender, normoactive bowel sounds. EXTREMITIES: Normal range of motion. No edema. SKIN: Warm, dry. NEURO: No focal deficits. Alert and oriented x2. PSYCH: Appropriate, apathetic Objective Data Vital Signs Vital Signs: Vital Signs - 24 hr 06/20/23 16:00 06/20/23 19:54 06/20/23 21:05 Temperature 97.5 F L Pulse Rate 90 90 Respiratory Rate Blood Pressure Pulse Oximetry Oxygen Delivery 06/20/23 21:41 06/20/23 20:00 06/21/23 00:00 Temperature 96.9 F L Pulse Rate 62 63 56 L Respiratory Rate 14 Blood Pressure 127/75 Pulse Oximetry 96 Oxygen Delivery 06/21/23 05:07 06/21/23 04:00 06/21/23 09:41 Temperature 96.9 F L Pulse Rate 66 68 106 H Respiratory Rate 13 Blood Pressure 124/68 Pulse Oximetry 98 Oxygen Delivery 06/21/23 08:00 06/21/23 14:51 06/21/23 14:31 Temperature 98.0 F Pulse Rate 71 Respiratory Rate 16 Blood Pressure 78/50 L 104/56 L Pulse Oximetry 96 Oxygen Delivery Room Air Intake/Output Intake/Output: Intake & Output 06/18/23 06/19/23 06/20/23 06/21/23 23:59 23:59 23:59 23:59 Intake Total 1080 2473 811 0401 Output Total 2019 1025 550 300 Balance -940 420 200 930 Meds/Results Medications: Active Medications Generic Name Dose Route Start Last Admin Trade Name Freq PRN Reason Stop Dose Admin Acetaminophen 650 mg 06/15/23 14:55 Acetaminophen 325 Mg Tablet PO Q6H PRN Mild Pain (1-3) or Fever Aspirin 81 mg 06/16/23 09:00 06/21/23 09:41 Aspirin 81 Mg Chewable Tablet PO 81 mg DAILY MARIANA Administration Carbidopa/Levodopa 3 tablet 06/15/23 17:00 06/21/23 13:10 Carbidopa/Levodopa 25/100 Mg Tablet PO 3 tablet WMHS [facility]IANA Administration Donepezil HCl 10 mg 06/16/23 09:00 06/21/23 09:41 Donepezil Hcl 10 Mg Tablet PO 10 mg DAILY [facility] Administration Enoxaparin Sodium 40 mg 06/17/23 09:00 06/21/23 09:40 Enoxaparin 40 Mg/0.4 Ml Syringe SUB-Q 40 mg DAILY [facility]IANA Administration Furosemide 40 mg 06/21/23 09:00 06/21/23 09:41 Furosemide Inj 40 Mg/4 Ml Vial IV PUSH 40 mg DAILY [facility]IANA Administration Sodium Chloride 1,000 mls @ 999 mls/hr 06/21/23 14:51 Normal Saline Iv IV CONT 06/21/23 15:51 .Q1H1M ONE Metoprolol Tartrate 12.5 mg 06/15/23 21:00 06/21/23 09:41 Metoprolol Tartrate 12.5 Mg Tablet PO 12.5 mg Q12HR [facility]IANA Administration Miconazole Nitrate 1 applic 06/17/23 21:00 06/21/23 09:42 Miconazole 2% Antifungal Ointment 56 Gm TOPICAL 1 applic Q12HR [facility] Administration Midodrine 5 mg 06/15/23 17:00 06/21/23 09:41 Midodrine Hcl 2.5 Mg Tablet PO 5 mg BID MARIANA Administration Potassium Chloride 20 meq 06/17/23 08:00 06/21/23 09:42 Potassium Chloride 20 Meq Packet (For Liquid) PO 20 meq DAILY@0800 [facility] Administration Ropinirole HCl 1.5 mg 06/15/23 16:30 06/21/23 13:10 Ropinirole Hcl 0.5 Mg Tablet PO 1.5 mg ACHS [facility]IANA Administration Rosuvastatin Calcium 10 mg 06/16/23 17:00 Rosuvastatin 10 Mg Tablet PO DAILY@1700 [facility] Tamsulosin HCl 0.4 mg 06/15/23 21:00 06/20/23 21:04 Tamsulosin Hcl 0.4 Mg Capsule PO 0.4 mg QHS [facility]IANA Administration Radiology Results: ITS Impressions Head CT 06/14/23 16:09 IMPRESSION: 1. No acute intracranial abnormality. Lumbar Spine CT 06/14/23 16:14 IMPRESSION: 1. Severe lower lumbar predominant spondylosis. 2. 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 No acute osseous abnormality at the lumbar spine or pelvis. 3. 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 ADDENDUM: 06/14/23 1653 ADDENDUM: Asymmetric masslike enlargement of the right seminal vesicle which raises concern for malignancy particularly if there is any prior history of prostate cancer. Correlate with clinical history and with PSA level. Dr. Wagner discussed these findings with Dr. Alvarado at 4:[address] 06/14/23 16:14 IMPRESSION: 1. Severe lower lumbar predominant spondylosis. 2. 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 No acute osseous abnormality at the lumbar spine or pelvis. 3. 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 ADDENDUM: 06/14/23 9524 ADDENDUM: Asymmetric masslike enlargement of the right seminal vesicle which raises concern for malignancy particularly if there is any prior history of prostate cancer. Correlate with clinical history and with PSA level. Dr. Wagner discussed these findings with Dr. Alvarado at 4:50 PM. Chest X-Ray 06/14/23 16:27 Impression: 1: No acute cardiopulmonary disease. Ribs X-Ray 06/15/23 12:03 IMPRESSION: 1. Right seventh rib fracture. Shoulder X-Ray 06/15/23 12:10 IMPRESSION: 1. Polyarticular osteoarthritis. Chest/Abdomen CT 06/16/23 09:10 IMPRESSION: 1. Acute nondisplaced lateral right seventh rib fracture. No right pneumothorax/hemothorax. 2. Small left pleural effusion. 3. No acute intra-abdominal process. 4. Diffuse mild bladder wall thickening which could be due to chronic outlet obstruction or cystitis either acute or chronic. Labs Labs: Laboratory Results - last 24 hr 06/20/23 06/20/23 06/21/23 16:47 20:05 05:14 WBC 5.9 RBC 3.46 L Hgb 10.9 L Hct 33.9 L MCV 98.0 MCH 31.5 MCHC 32.2 RDW 13.3 Plt Count 233 MPV 10.3 Immature Gran % (Auto) 0.8 H Neut % (Auto) 62.1 Lymph % (Auto) 24.4 Andrew % (Auto) 8.6 H Eos % (Auto) 3.4 Baso % (Auto) 0.7 Lymph # (Auto) 1.45 Andrew # (Auto) 0.5 Eos # (Auto) 0.2 Baso # (Auto) 0.0 Abs Immat Gran (auto) 0.05 H Absolute Neuts (auto) 3.7 Absolute Nucleated RBC 0.000 Nucleated RBC % 0.0 Sodium 133 L Potassium 3.4 Chloride 98 Carbon Dioxide 31 H Anion Gap 4 BUN 32 H Creatinine 1.10 Estim Creat Clear Calc 44 Estimated GFR > 60 Glucose 89 POC Capillary Glucose 102 136 H Calcium 9.1 Total Bilirubin 0.8 AST 131 H ALT 29 Alkaline Phosphatase 65 Total Protein 6.0 L Albumin 3.6 06/21/23 06/21/23 08:13 12:12 WBC RBC Hgb Hct MCV MCH MCHC RDW Plt Count MPV Immature Gran % (Auto) Neut % (Auto) Lymph % (Auto) Andrew % (Auto) Eos % (Auto) Baso % (Auto) Lymph # (Auto) Andrew # (Auto) Eos # (Auto) Baso # (Auto) Abs Immat Gran (auto) Absolute Neuts (auto) Absolute Nucleated RBC Nucleated RBC % Sodium Potassium Chloride Carbon Dioxide Anion Gap BUN Creatinine Estim Creat Clear Calc Estimated GFR Glucose POC Capillary Glucose 86 135 H Calcium Total Bilirubin AST ALT Alkaline Phosphatase Total Protein Albumin Quality VTE Prophylaxis VTE prophylaxis: pharmacologic ordered
[2023-06-21] MEDS: SODIUM CHLORIDE 0.9% IV 1,000 ML 999 ML IV CONT (15:25)
[2023-06-21 16:58] LABS: Glucose Point of Care 114 mg/dl (65-105)
[2023-06-21 20:09] LABS: Glucose Point of Care 106 mg/dl (65-105)
[2023-06-21] MEDS: TAMSULOSIN HCL 0.4 MG CAPSULE PO (21:14)
[2023-06-22] VITALS: PULSE 51
[2023-06-22 04:00] VITALS: PULSE 57
[2023-06-22] MEDS: rOPINIRole HCL 0.5 MG TABLET 1.5 MG PO ×2 (05:35→13:19)
[2023-06-22 05:39] LABS: Basophils Absolute Auto 0.1 K/mm3 (0.0-0.1); Basophils Percent Auto 0.8 % (0.2-1.2); Eosinophils Absolute Auto 0.4 K/mm3 (0-0.3); Hematocrit 31.4 % (42.0-52.0); Hemoglobin 9.9 g/dL (14.0-18.0); Immature Granulocyte Absolute 0.06 K/mm3 (0.00-0.031); Lymphocytes Percent Auto 24.9 % (18.3-44.2); Mean Corpuscular HGB Conc 31.5 g/dl (32-36); Mean Corpuscular Hemoglobin 31.2 pg (26-34); Mean Corpuscular Volume 99.1 fl (80-100); Mean Platelet Volume 10.1 fl (7.4-10.4); Monocytes Absolute Auto 0.6 K/mm3 (0.1-0.6); Monocytes Percent Auto 10.1 % (2.6-8.5); Neutrophils Absolute Auto 3.5 K/mm3 (1.3-6.7); Neutrophils Percent Auto 57.2 % (45.5-73.1); Platelet Count Result 207 k/mm3 (150-375); Red Blood Count 3.17 M/mm3 (4.6-6.20); Red Cell Distribution Width 13.5 % (11.5-14.5)
[2023-06-22 05:42] VITALS: BP 139/64; PULSE 62; RESP 19; TEMP 36.6; O2SAT 98
[2023-06-22 05:50] LABS: Alanine Aminotransferase 30 U/L (6-50); Albumin Level 3.2 g/dL (3.5-5.1); Alkaline Phosphatase 60 U/L (38-126); Anion Gap 1 mmol/L (4-12); Aspartate Amino Transferase 82 U/L (17-59); Bilirubin,Total 0.4 mg/dL (0.2-1.3); Blood Urea Nitrogen 31 mg/dL (9-20); Calcium 8.6 mg/dL (8.4-10.2); Carbon Dioxide 31 mmol/L (22-30); Chloride 102 mmol/L (98-107); Creatine Kinase 670 U/L (55-170); Estimated CRCL calculation 40 ml/min; Estimated Glomerular Filt Rate 58; Glucose 90 mg/dL (65-110); Potassium 3.9 mmol/L (3.4-5.0); Sodium 134 mmol/L (137-145)
--- NOTE | 2023-06-22 07:51 | P.PNIM_ITS ---
Progress Note: A&P Assessment and Plan (1) Rhabdomyolysis: Qualifiers: Encounter type: initial encounter Rhabdomyolysis type: traumatic Qualified Code(s): T79.6XXA - Traumatic ischemia of muscle, initial encounter Code(s): M62.82 - Rhabdomyolysis Status: Acute Assessment and Plan: * Last CK was 6302, recheck in am * Continue lasix 40mg daily * continue strict I&O * continue holding statin 06/21: * CK 670 * LFTs continue to normalize (2) Generalized weakness: Code(s): R53.1 - Weakness Status: Acute Assessment and Plan: * CT brain negative * CXR negative * CTA negative for acute process or changes * Waiting SNF placement * BC negative 06/21: * (3) Frequent falls: Code(s): R29.6 - Repeated falls Status: Acute Assessment and Plan: * XR showed right 7th rib fracture * CTA negative for acute process * PT/OT - SNF (4) Chronic kidney disease, stage 3: Code(s): N18.30 - Chronic kidney disease, stage 3 unspecified Status: Chronic Assessment and Plan: * creatinine now in normal range 1.10 * eGFR > 60 * continue to monitor trend (5) Parkinsons disease: Code(s): G20 - Parkinson's disease Status: Chronic Assessment and Plan: * will continue home meds * PT/OT Subjective Date/time seen: 06/22/23 07:51 Interval history: This is an 83 year old male with PMH of benign prostatic hyperplasia, chronic anemia, CKD, GERD, HLD, HTN, Parkinson disease, and prostate cancer who is here for evaluation after a fall. Interval history: 06/21: Review of Systems Review of Systems: All systems reviewed & are unremarkable except as noted in HPI and below ROS unobtainable: Yes unobtainable due to mental status Exam Narrative: General: well appearing, well developed, well nourished, appears stated age. HEENT: normocephalic, atraumatic. Mucous membranes moist. EOMI, PERRLA, bilateral sclera anicteric, no conjunctival injection. Neck supple without JVD, lymphadenopathy, or bruit. Respiratory: clear to ascultation bilaterally. No rales/rhonic/wheezes. Cardiovascular: Regular rate and rhythm, normal S1-S2 upon ascultation. No murmurs, rubs, or clicks. PMI is nondisplaced, capillary re-fill less than 3 second. Abdomen: Soft, flat, no pulsatile masses, non-distended and non-tender. No rebound, no guarding. No CVA tenderness, no hepatosplenomegaly. Bowel sounds present to all four quadrants. No high pitch or tinkling sounds, resonant to percussion. Extremities: No cyanosis, clubbing, or edema present. Pulses are palpable 2/2. Active ROM to all four extremities. Neuro: Alert and orientated x 4. PERRLA. Cranial nerves 2-12 intact without foc al deficit. Skin: Warm, dry, and intact, without rash, erythema, or lesion. Lines: Incisions: Psych: pleasant, cooperative, normal speech, normal affect, no hallucinations, no dysarthia Objective Data Vital Signs Vital Signs: Vital Signs - 24 hr 06/21/23 09:41 06/21/23 08:00 06/21/23 14:51 Temperature Pulse Rate 106 H Respiratory Rate Blood Pressure 78/50 L Pulse Oximetry Oxygen Delivery Room Air 06/21/23 14:31 06/21/23 08:00 06/21/23 12:00 Temperature 98.0 F Pulse Rate 71 74 86 Respiratory Rate 16 Blood Pressure 104/56 L Pulse Oximetry 96 Oxygen Delivery 06/21/23 16:00 06/21/23 17:11 06/21/23 21:11 Temperature 97.0 F L Pulse Rate 63 69 Respiratory Rate 16 Blood Pressure 96/54 L 108/50 L Pulse Oximetry 100 Oxygen Delivery 06/21/23 21:12 06/21/23 20:00 06/21/23 20:00 Temperature Pulse Rate 69 72 Respiratory Rate Blood Pressure Pulse Oximetry Oxygen Delivery Room Air 06/22/23 00:00 06/22/23 04:00 06/22/23 05:42 Temperature 97.8 F Pulse Rate 51 L 57 L 62 Respiratory Rate 19 Blood Pressure 139/64 Pulse Oximetry 98 Oxygen Delivery Intake/Output Intake/Output: Intake & Output 06/19/23 06/20/23 06/21/23 06/22/23 23:59 23:59 23:59 23:59 Intake Total 0653 774 1784 Output Total 9277 356 9186 400 Balance 420 200 363 -400 Meds/Results Medications: Active Medications Generic Name Dose Route Start Last Admin Trade Name Freq PRN Reason Stop Dose Admin Acetaminophen 650 mg 06/15/23 14:55 Acetaminophen 325 Mg Tablet PO Q6H PRN Mild Pain (1-3) or Fever Aspirin 81 mg 06/16/23 09:00 06/21/23 09:41 Aspirin 81 Mg Chewable Tablet PO 81 mg DAILY MARIANA Administration Carbidopa/Levodopa 3 tablet 06/15/23 17:00 06/21/23 21:12 Carbidopa/Levodopa 25/100 Mg Tablet PO 3 tablet WMHS MARIANA Administration Donepezil HCl 10 mg 06/16/23 09:00 06/21/23 09:41 Donepezil Hcl 10 Mg Tablet PO 10 mg DAILY MARIANA Administration Enoxaparin Sodium 40 mg 06/17/23 09:00 06/21/23 09:40 Enoxaparin 40 Mg/0.4 Ml Syringe SUB-Q 40 mg DAILY MARIANA Administration Furosemide 40 mg 06/21/23 09:00 06/21/23 09:41 Furosemide Inj 40 Mg/4 Ml Vial IV PUSH 40 mg DAILY MARIANA Administration Metoprolol Tartrate 12.5 mg 06/15/23 21:00 06/21/23 21:12 Metoprolol Tartrate 12.5 Mg Tablet PO 12.5 mg Q12HR MARIANA Administration Miconazole Nitrate 1 applic 06/17/23 21:00 06/21/23 21:14 Miconazole 2% Antifungal Ointment 56 Gm TOPICAL 1 applic Q12HR MARIANA Administration Midodrine 5 mg 06/15/23 17:00 06/21/23 17:06 Midodrine Hcl 2.5 Mg Tablet PO 5 mg BID MARIANA Administration Potassium Chloride 20 meq 06/17/23 08:00 06/21/23 09:42 Potassium Chloride 20 Meq Packet (For Liquid) PO 20 meq DAILY@0800 [facility] Administration Ropinirole HCl 1.5 mg 06/15/23 16:30 06/22/23 05:35 Ropinirole Hcl 0.5 Mg Tablet PO 1.5 mg ACHS [facility] Administration Rosuvastatin Calcium 10 mg 06/16/23 17:00 Rosuvastatin 10 Mg Tablet PO DAILY@1700 [facility] Tamsulosin HCl 0.4 mg 06/15/23 21:00 06/21/23 21:14 Tamsulosin Hcl 0.4 Mg Capsule PO 0.4 mg QHS MARIANA Administration Radiology Results: ITS Impressions Head CT 06/14/23 16:09 IMPRESSION: 1. No acute intracranial abnormality. Lumbar Spine CT 06/14/23 16:14 IMPRESSION: 1. Severe lower lumbar predominant spondylosis. 2. 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 No acute osseous abnormality at the lumbar spine or pelvis. 3. 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 ADDENDUM: 06/14/23 1653 ADDENDUM: Asymmetric masslike enlargement of the right seminal vesicle which raises concern for malignancy particularly if there is any prior history of prostate cancer. Correlate with clinical history and with PSA level. Dr. Wagner discussed these findings with Dr. Alvarado at 4:[address] 06/14/23 16:14 IMPRESSION: 1. Severe lower lumbar predominant spondylosis. 2. 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 No acute osseous abnormality at the lumbar spine or pelvis. 3. 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 ADDENDUM: 06/14/23 1653 ADDENDUM: Asymmetric masslike enlargement of the right seminal vesicle which raises concern for malignancy particularly if there is any prior history of prostate cancer. Correlate with clinical history and with PSA level. Dr. Wagner discussed these findings with Dr. Alvarado at 4:50 PM. Chest X-Ray 06/14/23 16:27 Impression: 1: No acute cardiopulmonary disease. Ribs X-Ray 06/15/23 12:03 IMPRESSION: 1. Right seventh rib fracture. Shoulder X-Ray 06/15/23 12:10 IMPRESSION: 1. Polyarticular osteoarthritis. Chest/Abdomen CT 06/16/23 09:10 IMPRESSION: 1. Acute nondisplaced lateral right seventh rib fracture. No right pneumothorax/hemothorax. 2. Small left pleural effusion. 3. No acute intra-abdominal process. 4. Diffuse mild bladder wall thickening which could be due to chronic outlet obstruction or cystitis either acute or chronic. Labs Labs: Laboratory Results - last 24 hr 06/21/23 06/21/23 06/21/23 08:13 12:12 16:54 WBC RBC Hgb Hct MCV MCH MCHC RDW Plt Count MPV Immature Gran % (Auto) Neut % (Auto) Lymph % (Auto) [place] % (Auto) Eos % (Auto) Baso % (Auto) Lymph # (Auto) [place] # (Auto) Eos # (Auto) Baso # (Auto) Abs Immat Gran (auto) Absolute Neuts (auto) Absolute Nucleated RBC Nucleated RBC % Sodium Potassium Chloride Carbon Dioxide Anion Gap BUN Creatinine Estim Creat Clear Calc Estimated GFR Glucose POC Capillary Glucose 86 135 H 114 H Calcium Total Bilirubin AST ALT Alkaline Phosphatase Total Creatine Kinase Total Protein Albumin 06/21/23 06/22/23 20:05 05:09 WBC 6.0 RBC 3.17 L Hgb 9.9 L Hct 31.4 L MCV 99.1 MCH 31.2 MCHC 31.5 L RDW 13.5 Plt Count 207 MPV 10.1 Immature Gran % (Auto) 1.0 H Neut % (Auto) 57.2 Lymph % (Auto) 24.9 [place] % (Auto) 10.1 H Eos % (Auto) 6.0 H Baso % (Auto) 0.8 Lymph # (Auto) 1.50 [place] # (Auto) 0.6 Eos # (Auto) 0.4 H Baso # (Auto) 0.1 Abs Immat Gran (auto) 0.06 H Absolute Neuts (auto) 3.5 Absolute Nucleated RBC 0.000 Nucleated RBC % 0.0 Sodium 134 L Potassium 3.9 Chloride 102 Carbon Dioxide 31 H Anion Gap 1 L BUN 31 H Creatinine 1.20 Estim Creat Clear Calc 40 Estimated GFR 58 L Glucose 90 POC Capillary Glucose 106 H Calcium 8.6 Total Bilirubin 0.4 AST 82 H ALT 30 Alkaline Phosphatase 60 Total Creatine Kinase 670 H Total Protein 6.0 L Albumin 3.2 L Quality VTE Prophylaxis VTE prophylaxis: pharmacologic ordered
[2023-06-22 08:06] LABS: Glucose Point of Care 76 mg/dl (65-105)
[2023-06-22 09:13] VITALS: PULSE 68
[2023-06-22] MEDS: FUROSEMIDE INJ 40 MG/4 ML VIAL IV PUSH (09:13)
[2023-06-22] MEDS: POTASSIUM CHLORIDE 20 MEQ PACKET (FOR LIQUID) PO (09:13)
[2023-06-22] MEDS: ASPIRIN 81 MG CHEWABLE TABLET PO (09:13)
[2023-06-22] MEDS: MIDODRINE HCL 2.5 MG TABLET 5 MG PO (09:13)
[2023-06-22] MEDS: METOPROLOL TARTRATE 12.5 MG TABLET PO (09:13)
[2023-06-22] MEDS: DONEPEZIL HCL 10 MG TABLET PO (09:13)
[2023-06-22] MEDS: ENOXAPARIN 40 MG/0.4 ML SYRINGE SUB-Q (09:13)
[2023-06-22] MEDS: CARBIDOPA/LEVODOPA 25/100 MG TABLET 3 TABLET PO ×2 (09:13→13:19)
[2023-06-22 12:00] VITALS: PULSE 91
[2023-06-22 12:01] LABS: Glucose Point of Care 108 mg/dl (65-105)
--- NOTE | 2023-06-22 12:04 | P.DS_ITS ---
DS: Admitting Diagnosis Discharge Date - Admitting Diagnosis Fall DS: Discharge Diagnosis Discharge Diagnosis (1) Rhabdomyolysis: Qualifiers: Encounter type: initial encounter Rhabdomyolysis type: traumatic Qualified Code(s): T79.6XXA - Traumatic ischemia of muscle, initial encounter Code(s): M62.82 - Rhabdomyolysis Status: Acute (2) Generalized weakness: Code(s): R53.1 - Weakness Status: Acute (3) Frequent falls: Code(s): R29.6 - Repeated falls Status: Acute (4) Chronic kidney disease, stage 3: Code(s): N18.30 - Chronic kidney disease, stage 3 unspecified Status: Chronic (5) Parkinsons disease: Code(s): G20 - Parkinson's disease Status: Chronic Plan 1) Rhabdomyolysis: ?Qualifiers: ?Encounter type:?initial encounter??Rhabdomyolysis type:?traumatic? Qualified Code(s):?T79.6XXA - Traumatic ischemia of muscle, initial encounter ?Code(s): M62.82 - Rhabdomyolysis ?Status:?Acute ?Assessment and Plan: * Last CK was 6302, recheck in am * Continue lasix 40mg daily * continue strict I&O * continue holding statin(2) Generalized weakness: ?Code(s): R53.1 - Weakness ?Status:?Acute ?Assessment and Plan: * CT brain negative * CXR negative * CTA negative for acute process or changes * Waiting SNF placement * BC negative(3) Frequent falls: ?Code(s): R29.6 - Repeated falls ?Status:?Acute ?Assessment and Plan: * XR showed right 7th rib fracture * CTA negative for acute process * PT/OT - SNF(4) Chronic kidney disease, stage 3: ?Code(s): N18.30 - Chronic kidney disease, stage 3 unspecified ?Status:?Chronic ?Assessment and Plan: * creatinine now in normal range 1.10 * eGFR > 60 * continue to monitor trend (5) Parkinsons disease: ?Code(s): G20 - Parkinson's disease ?Status:?Chronic ?Assessment and Plan: * will continue home meds * PT/OT DS: Summary Hospital Course Reason for hospitalization: Rhabdomyolysis Hospital Course: This is an 83-year-old male with a past medical history for BPH, anemia of chronic disease, chronic kidney disease, GERD, hyperlipidemia, hypertension, Parkinson's disease, and prostate cancer who was brought to the ER for evaluation after having recurrent falls. Per the patient's son who was found down at home for not noted on antibiotic. Patient was treated for UTI and IV fluids for rhabdomyolysis. He also received PT and OT consult. Labs and vitals reviewed today. Clinically patient is better and safe to discharge to SNF. Status at Discharge Cognitive/behavioral status at discharge: Alert and oriented Time Spent with Patient Time attestation: Total time spent providing and/or coordinating discharge services: 42 Exam Narrative: General: well appearing, well developed, well nourished, appears stated age. HEENT: normocephalic, atraumatic. Mucous membranes moist. EOMI, PERRLA, bilateral sclera anicteric, no conjunctival injection. Neck supple without JVD, lymphadenopathy, or bruit. Respiratory: clear to auscultation bilaterally. No rales/rhonic/wheezes. Cardiovascular: Regular rate and rhythm, normal S1-S2 upon auscultation. No murmurs, rubs, or clicks. PMI is nondisplaced, capillary re-fill less than 3 second. Abdomen: Soft, round, no pulsatile masses, non-distended and non-tender. No rebound, no guarding. No CVA tenderness, no hepatosplenomegaly. Bowel sounds present to all four quadrants. No high pitch or tinkling sounds, resonant to percussion. Extremities: No cyanosis, clubbing, or edema present. Pulses are palpable 2/2. Active ROM to all four extremities. Neuro: Alert and orientated x 4. PERRLA. Cranial nerves 2-12 intact without focal deficit. Skin: Warm, dry, and intact, without rash, erythema, or lesion. Lines: Incisions: Psych: pleasant, cooperative, normal speech, normal affect, no hallucinations, no dysarthria DS: Data Data Completed and Pending Labs on day of discharge: Labs from last 24 hours 06/22/23 06/22/23 06/22/23 11:57 08:01 05:09 WBC 6.0 RBC 3.17 L Hgb 9.9 L Hct 31.4 L MCV 99.1 MCH 31.2 MCHC 31.5 L RDW 13.5 Plt Count 207 MPV 10.1 Immature Gran % (Auto) 1.0 H Neut % (Auto) 57.2 Lymph % (Auto) 24.9 Baca % (Auto) 10.1 H Eos % (Auto) 6.0 H Baso % (Auto) 0.8 Lymph # (Auto) 1.50 Baca # (Auto) 0.6 Eos # (Auto) 0.4 H Baso # (Auto) 0.1 Abs Immat Gran (auto) 0.06 H Absolute Neuts (auto) 3.5 Absolute Nucleated RBC 0.000 Nucleated RBC % 0.0 Sodium 134 L Potassium 3.9 Chloride 102 Carbon Dioxide 31 H Anion Gap 1 L BUN 31 H Creatinine 1.20 Estim Creat Clear Calc 40 Estimated GFR 58 L Glucose 90 POC Capillary Glucose 108 H 76 Calcium 8.6 Total Bilirubin 0.4 AST 82 H ALT 30 Alkaline Phosphatase 60 Total Creatine Kinase 670 H Total Protein 6.0 L Albumin 3.2 L 06/21/23 06/21/23 06/21/23 20:05 16:54 12:12 WBC RBC Hgb Hct MCV MCH MCHC RDW Plt Count MPV Immature Gran % (Auto) Neut % (Auto) Lymph % (Auto) Baca % (Auto) Eos % (Auto) Baso % (Auto) Lymph # (Auto) Baca # (Auto) Eos # (Auto) Baso # (Auto) Abs Immat Gran (auto) Absolute Neuts (auto) Absolute Nucleated RBC Nucleated RBC % Sodium Potassium Chloride Carbon Dioxide Anion Gap BUN Creatinine Estim Creat Clear Calc Estimated GFR Glucose POC Capillary Glucose 106 H 114 H 135 H Calcium Total Bilirubin AST ALT Alkaline Phosphatase Total Creatine Kinase Total Protein Albumin Discharge Plan Discharge Attending physician on discharge: Maria Guadalupe Crane Consulting providers: Marielena Alvarado Discharging Clinician: Phuong Sparks Anticipated Discharge Date/Time: 06/22/23 12:29 Patient Disposition: SNF Activity: july shower Diet: regular Discharge Instructions: You were admitted after falling at home. Your found have a urinary tract infection and rhabdomyolysis. We treated you with IV fluids and IV antibiotics. You have completed your IV antibiotics for urinary tract infection. Your discharging to a [facility] facility for further rehab. Discharge disposition: Take medications as prescribed Monitor blood pressures Avoid social areas, you wear a mask when in social settings Encouraged to continue with yearly vaccinations Return to the emergency department if he developed sudden shortness of breath, chest pain, nausea, vomiting, upset stomach or intractable diarrhea Return to the emergency department if you develop fever greater than 101.5 Follow-up with the primary care physician within 1-2 weeks Thank you for choosing [facility] for your healthcare needs Patient Instructions: Urinary Tract Infection in Men (DC), Fall Prevention (DC), Safe Use of Anticoagulants (GEN) Stand Alone Forms: General Discharge Information Follow-up/Referrals: Roberta,Bird Cosby MD [Primary Care Provider] - Discharge Medications: Continued ropinirole 1 mg tablet 1.5 mg PO ACHS Rx Instructions: four times a day donepezil [Aricept] 10 mg tablet 10 mg PO DAILY Rx Instructions: evening aspirin 81 mg Tablet,Chewable 81 mg PO DAILY midodrine 2.5 mg Tablet 5 mg PO BID Qty: 60 0RF potassium chloride [K-Tab] 20 mEq tablet extended release 20 meq PO DAILY Qty: 30 0RF metoprolol tartrate 25 mg tablet 12.5 mg PO BID rosuvastatin 10 mg tablet 10 mg PO DAILY Qty: 30 0RF Rx Instructions: Evening tamsulosin 0.4 mg capsule 0.4 mg PO QHS Qty: 30 0RF Rx Instructions: LAST REFILL UNTIL SEEN carbidopa-levodopa 25-100 mg tablet 3 tablet PO QID Qty: 360 3RF Rx Instructions: four times a day Date of admission: 06/16/23 11:10 Primary Care Provider: RobertaBird Admitting Provider: Suly Kolb Attending physician on admission: Suly Kolb Condition: Improved Quality VTE Prophylaxis VTE prophylaxis: pharmacologic ordered
[2023-06-22 13:58] VITALS: BP 111/64; PULSE 75; RESP 18; TEMP 36.8; O2SAT 100
[2023-06-22 14:16] LABS: SARS-CoV-2 RNA PCR Negative (Negative)
== END 2023-06-22 16:15 | DRG 565 ==
LOC: ANHED 18:29 → ANH2MED 21:14
PROVIDERS: Nurse Practitioner; Admitting Provider Student in an Organized Health Care Education/Training Program; Emergency Provider Physician Assistant; PCP Internal Medicine; Visit Provider Nurse Practitioner Acute Care
DX: T79.6XXA Traumatic ischemia of muscle, initial encounter (principal); S22.31XA Fracture of one rib, right side, initial encounter for closed fracture; I12.9 Hypertensive chronic kidney disease with stage 1 through stage 4 chronic kidney disease, or unspecified chronic kidney disease; N18.30 Chronic kidney disease, stage 3 unspecified; D63.1 Anemia in chronic kidney disease; C61 Malignant neoplasm of prostate; N40.0 Benign prostatic hyperplasia without lower urinary tract symptoms; E78.5 Hyperlipidemia, unspecified; K21.9 Gastro-esophageal reflux disease without esophagitis; G20.A1 Parkinson's disease without dyskinesia, without mention of fluctuations; Z20.822 Contact with and (suspected) exposure to COVID-19; Z79.82 Long term (current) use of aspirin; Z11.52 Encounter for screening for COVID-19; Z99.3 Dependence on wheelchair; Z86.718 Personal history of other venous thrombosis and embolism; Z87.891 Personal history of nicotine dependence; W19.XXXA Unspecified fall, initial encounter; R29.6 Repeated falls
CPT/HCPCS: 36415; 70450; 71045; 71110; 71250; 72131; 72192; 73020; 74150; 80048; 80053; 80069; 81001; 82550; 82570; 82948; 83605; 83735; 83880; 84132; 84156; 84443; 84484; 85025; 85610; 85730; 87040; 87635; 87637; 93005; 96361; 96374; 96375; 96376; 97110; 97116; 97162; 97166; 97530; 97535; 99285; A9270; G0378; J0360; J1650; J1940; J3480; J7030; J7040

== ENCOUNTER 2023-07-28 09:27 | Inpatient (IN) | payer MEDICARE, SELFPAY ==
[2023-07-28] VITALS (10 sets, daily range): BP systolic 143–180; BP diastolic 76–94; PULSE 60–75; RESP 14–20; TEMP 36.6–37.3; O2SAT 95–100; BMI 26.9
--- NOTE | ~2023-07-28 | XR_ITS ---
EXAMINATION: XR chest 1V portable DATE: 07/28/2023 12:57 INDICATION: Altered mental status. TECHNIQUE: A single frontal view of the chest was obtained. COMPARISON: Chest single view 06/14/2023, chest CT 06/16/2023 FINDINGS: There is stable mild scarring at the lung apices. No pleural effusion or pneumothorax. The heart size is normal. Calcified right hilar and mediastinal lymph nodes are consistent with old granu lomatous disease. IMPRESSION: 1. Stable mild scarring at the lung apices. Reviewed, dictated and finalized at location A.
--- NOTE | ~2023-07-28 | CT_ITS ---
EXAMINATION: CT brain wo con DATE: 07/28/2023 13:05 INDICATION: Altered mental state TECHNIQUE: Computed tomography (CT) of the head was performed without intravenous contrast. The mA wa s adjusted according to patient size. Iterative reconstruction technique was employed. Exam dose: 68 1.00 mGy-cm total exam DLP. COMPARISON: June 14, 2023 CT brain FINDINGS: There is bilateral carotid siphon internal carotid artery calcification in addition to bila teral vertebral artery and basilar artery calcifications. There is nonspecific diminished attenuation of the cerebral white matter, likely due to chronic small vessel ischemic changes. Moderately prominent central and cortical cerebral atrophy. No intracranial mass lesion or hemorrhage or cerebrovascular accident, midline shift or mass effect i s detected. No subdural or epidural hematoma. The mastoid air cells and paranasal sinuses are unremarkable. No fracture or bone destruction of the cranial vault. IMPRESSION: Cerebral atherosclerosis and chronic small vessel ischemic changes of the cerebral white matter No acute intracranial finding Reviewed, dictated and finalized at Location [facility]. Reviewed, dictated and finalized at location B.
--- NOTE | 2023-07-28 09:38 | ECG_ITS ---
SEE SCANNED COPY FOR CONFIRMED REPORT MTDD
[2023-07-28 10:24] LABS: Basophils Percent Auto 0.3 % (0.2-1.2); Eosinophils Percent Auto 0.1 % (0-4.4); Hematocrit 37.1 % (42.0-52.0); Hemoglobin 12.1 g/dL (14.0-18.0); Immature Granulocyte Absolute 0.04 K/mm3 (0.00-0.031); Immature Granulocyte Percent A 0.3 % (0-0.5); Lymphocytes Absolute Auto 0.65 K/mm3 (0.9-3.2); Lymphocytes Percent Auto 5.6 % (18.3-44.2); Mean Corpuscular HGB Conc 32.6 g/dl (32-36); Mean Corpuscular Hemoglobin 31.5 pg (26-34); Mean Corpuscular Volume 96.6 fl (80-100); Mean Platelet Volume 9.8 fl (7.4-10.4); Monocytes Absolute Auto 0.9 K/mm3 (0.1-0.6); Monocytes Percent Auto 7.3 % (2.6-8.5); Neutrophils Absolute Auto 10.1 K/mm3 (1.3-6.7); Neutrophils Percent Auto 86.4 % (45.5-73.1); Platelet Count Result 275 k/mm3 (150-375); Red Blood Count 3.84 M/mm3 (4.6-6.20); Red Cell Distribution Width 13.2 % (11.5-14.5); White Blood Count 11.7 K/mm3 (4.5-10.0)
[2023-07-28 10:34] LABS: Lactic Acid Reflex 2.5 mmol/L (0.7-2.0)
[2023-07-28 10:37] LABS: Alanine Aminotransferase 22 U/L (6-50); Albumin Level 4.9 g/dL (3.5-5.1); Alkaline Phosphatase 81 U/L (38-126); Anion Gap 11 mmol/L (4-12); Aspartate Amino Transferase 99 U/L (17-59); Bilirubin,Total 0.9 mg/dL (0.2-1.3); Blood Urea Nitrogen 24 mg/dL (9-20); Calcium 9.8 mg/dL (8.4-10.2); Carbon Dioxide 25 mmol/L (22-30); Chloride 102 mmol/L (98-107); Estimated Glomerular Filt Rate > 60; Glucose 121 mg/dL (65-110); Potassium 3.6 mmol/L (3.4-5.0); Sodium 138 mmol/L (137-145)
[2023-07-28 10:41] LABS: Creatine Kinase 2774 U/L (55-170)
[2023-07-28 10:48] LABS: Troponin I 0.027 ng/mL (0.000-0.034)
[2023-07-28 11:39] LABS: Appearance Urine Clear (Clear); Bacteria Urine None Seen /hpf; Bilirubin Urine Negative (Negative); Blood Urine 2+ (Negative); Color Urine Yellow (Yellow); Glucose Urine UA Negative (Negative); Ketones Urine 1+ mg/dL (Negative); Leukocyte Esterase Ur Negative LEU/UL (Negative); Nitrate Urine Negative (Negative); Protein Urine 2+ mg/dL (Negative); RBC Urine 0-2 /hpf (0-2); Specific Grav Ur 1.015 (1.001-1.035); Squamous Epithelial Cell Urine None Seen /hpf (Few); Urobilinogen Urine 0.2 mg/dL (<2.0); WBC Urine 0-5 /hpf (0-3); pH Urine 7.5 (5.0-9.0)
[2023-07-28 11:40] LABS: Add Urine Microscopic? YES
--- NOTE | 2023-07-28 12:28 | ED.FALL ---
HPI - Fall General Chief Complaint: Fall Stated Complaint: found on ground in puddle of urine Time Seen by Provider: 07/28/23 11:25 Source: patient, family and EMS Mode of arrival: EMS Limitations: altered mental status and clinical condition History of Present Illness HPI Narrative: Patient presents via EMS. It is reported that he was found on the ground in his urine. Patient has limited ability to give his own history. He denies any chest pain, abdominal pain, shortness of breath, headache, or extremity pain. When asked whom he lives with or if he lives alone he is unable to answer. He does not know if he fell. Knows that he is in the hospital but does not know why. Related Data Home Medications Medication Instructions Recorded Confirmed aspirin 81 mg chewable tablet 81 mg PO DAILY 04/27/23 06/30/23 donepezil 10 mg tablet (Aricept) 10 mg PO DAILY 04/27/23 06/30/23 ropinirole 1 mg tablet 1.5 mg PO ACHS 04/27/23 06/30/23 metoprolol tartrate 25 mg tablet 12.5 mg PO BID 06/15/23 06/30/23 Allergies Allergy/AdvReac Type Severity Reaction Status Date / Time No Known Allergies Allergy Verified 07/28/23 16:38 [facility] Past Medical History Medical History (Updated 07/29/23 @ 10:41 by Raiza Kramer MD) Benign prostatic hyperplasia Chronic anemia Chronic kidney disease, stage 3 Deep venous thrombosis Gastroesophageal reflux disease Hyperlipidemia Hypertension Overweight (BMI 25.0-29.9) Parkinsons disease Prostate cancer Protein calorie malnutrition Small bowel obstruction with strangulation or infarction Surgical History Surgical History (Updated 07/28/23 @ 14:39 by Roxanne Rodgers APRN) History of colonoscopy with polypectomy History of transurethral resection of prostate PEG (percutaneous endoscopic gastrostomy) status Family History Family History Father Family history of cardiovascular disease Family history of elevated blood lipids Diabetes mellitus Suicide Mother Family history of malignant neoplasm of breast in first degree relative Other Hypertension Social History Social History Social History: Surrogate medical decision maker: Jc Goins, son. Code status: Smoking packs per day: 3 Smoking cigarettes per day: 60.0 Years smoked: 11 Smoking pack-years: 33.00 Smoking status: Former smoker Second hand tobacco smoke exposure: No Alcohol intake: current Drinks per week: 1 Alcohol use details: Rare alcohol use. Substance use: never Substance use type: does not use Do You Feel Safe in your Home?: Yes Lack of Transportation: No Lack of Food: Never True Current Housing: I Have Housing Concerned About Future Housing: No Difficulty Paying Gas/Electric Bills: No Difficulty Paying for Meds: No Currently Unemployed: No Education: Associate Degree Difficulty w/ Childcare or Family Care: No Living arrangements: alone Additional living arrangements comments: son visits often; neighbor Torrey checks on him; patient has life alert Additional occupation/education comments: Worked in the [employer] and for the [employer] Spiritual care concerns: No Exam Narrative: GENERAL: well-nourished, and in no acute distress. HEAD: Normocephalic, atraumatic. EYES: Non injected, non icteric ENT: Nares clear, no rhinorrhea or epistaxis. Upper Dentures in place. Dry mucous membranes NECK: Supple. CHEST: Speaking in full sentences. No respiratory distress. Clear to auscultation bilaterally. HEART: Regular rate and rhythm. . ABDOMEN: Soft, nondistended. Nontender to palpation. EXTREMITIES: Normal range of motion. 3+ bilateral pitting edema lower extremities. SKIN: Warm, dry. Scattered abrasions as documented in triage note NEURO: No focal deficits. Alert ; oriented to self and location but not health history, history of present illness or
[2023-07-28 13:20] LABS: Reflex Lactic Acid Yes or No Add Lactic
--- NOTE | 2023-07-28 14:11 | PM.IMHP ---
H&P: HPI History of Present Illness Date/Time: 07/28/23 16:30 Chief Complaint: Fall Narrative: 83 y/o M presents here for evaluation post-ground level fall with PMH of BPH, anemia of chronic disease, chronic kidney disease, GERD, hyperlipidemia, hypertension, Parkinson's disease, and prostate cancer. Patient presents here via EMS from home for further evaluation after he sustained a ground level fall. Per EMS report, they found patient near his lift recliner and he appeared to have slid out of the chair. Patient was covered in urine. Patient reports no recollection of events. Unable to provide further details. Patient had similar admission from 06/14/23-06/22/23 after having recurrent falls and was treated for a UTI and rhabdomyolysis. Received PT/OT and was discharged to a [facility] facility for further rehab but is now home. Denies pain, chest pain, shortness of breath, palpitations, N/V, or diarrhea. Initial VS at presentation: 98? F, HR 75, RR 16, 164/90, and 100% on RA. ED workup showed: WBC 11.7, mild but stable anemia, no significant electrolyte derangements, creatinine 1.0 air and GFR >60, lactic 2.5, CK 2774, and initial tropes 0.027. UA not suspicious for UTI. Head CT showed cerebral atherosclerosis chronic small-vessel ischemic changes, no acute findings. CXR showed stable mild scarring at the lung apices. Review of Systems Review of Systems: All systems reviewed & are unremarkable except as noted in HPI and below PMFSH Past Medical History Medical History (Updated 07/28/23 @ 14:39 by Roxanne Rodgers APRN) Benign prostatic hyperplasia Chronic anemia Chronic kidney disease, stage 3 Deep venous thrombosis Gastroesophageal reflux disease Hyperlipidemia Hypertension Overweight (BMI 25.0-29.9) Parkinsons disease Prostate cancer Protein calorie malnutrition Small bowel obstruction with strangulation or infarction Surgical History Surgical History (Updated 07/28/23 @ 14:39 by Roxanne Rodgers APRN) History of colonoscopy with polypectomy History of transurethral resection of prostate PEG (percutaneous endoscopic gastrostomy) status Family History Family History Father Family history of cardiovascular disease Family history of elevated blood lipids Diabetes mellitus Suicide Mother Family history of malignant neoplasm of breast in first degree relative Other Hypertension Social History Social History Social History: Surrogate medical decision maker: Jc Goins, son. Code status: Smoking packs per day: 3 Smoking cigarettes per day: 60.0 Years smoked: 11 Smoking pack-years: 33.00 Smoking status: Former smoker Second hand tobacco smoke exposure: No Alcohol intake: current Drinks per week: 1 Alcohol use details: Rare alcohol use. Substance use: never Substance use type: does not use Do You Feel Safe in your Home?: Yes Lack of Transportation: No Lack of Food: Never True Current Housing: I Have Housing Concerned About Future Housing: No Difficulty Paying Gas/Electric Bills: No Difficulty Paying for Meds: No Currently Unemployed: No Education: Associate Degree Difficulty w/ Childcare or Family Care: No Living arrangements: alone Additional living arrangements comments: son visits often; neighbor Torrey checks on him; patient has life alert Additional occupation/education comments: Worked in the [employer] and for the [employer] Spiritual care concerns: No Meds Home Medications and Allergies Home Medications Medication Instructions Recorded Confirmed Type rosuvastatin 10 mg tablet 10 mg PO DAILY #30 tabs 12/31/22 06/30/23 Rx tamsulosin 0.4 mg capsule 0.4 mg PO QHS #30 caps 12/31/22 06/30/23 Rx aspirin 81 mg chewable tablet 81 mg PO DAILY 04/27/23 06/30/23 History donepezil 10 mg tablet (Aricept) 10 mg PO DAILY 04/27/23
[2023-07-28] MEDS: SODIUM CHLORIDE 0.9% IV 1,000 ML 999 ML IV CONT (14:18)
[2023-07-28 16:04] LABS: Lactic Acid 2.7 mmol/L (0.7-2.0)
[2023-07-28 16:14] LABS: NT Pro B Type Natriuretic Pept 363 pg/mL (19.9-100)
--- NOTE | 2023-07-28 16:15 | ADMGEN ---
This patient, Abdulaziz Goins, was admitted to Medical Room 346-01. Patient/family oriented to hospital policies and general routines including ID bracelet, bed and alarms, visiting hours, pain management, procedures, bathroom and other care routines, personal items, smoking policy, room service/diet, and visiting hours. Information on how to activate the Rapid Response Team has been discussed. Patient/Family are encouraged to report perceived risks to care and to ask questions if they do not understand what they are told or what they should do.
[2023-07-28] MEDS: LACTATED RINGERS 1,000 ML 999 ML IV CONT (17:18)
[2023-07-28 23:29] LABS: Troponin I 0.041 ng/mL (0.000-0.034)
[2023-07-29] VITALS (9 sets, daily range): BP systolic 136–146; BP diastolic 68–75; PULSE 56–92; RESP 16–18; TEMP 36.4–36.6; O2SAT 95–98
--- NOTE | 2023-07-29 00:03 | ECG_ITS ---
SEE SCANNED COPY FOR CONFIRMED REPORT MTDD
[2023-07-29] MEDS: LACTATED RINGERS 1,000 ML 100 ML IV CONT ×2 (00:50→12:29)
[2023-07-29 03:38] LABS: Basophils Absolute Auto 0.1 K/mm3 (0.0-0.1); Basophils Percent Auto 0.9 % (0.2-1.2); Eosinophils Absolute Auto 0.3 K/mm3 (0-0.3); Eosinophils Percent Auto 3.5 % (0-4.4); Hematocrit 31.5 % (42.0-52.0); Hemoglobin 10.1 g/dL (14.0-18.0); Immature Granulocyte Absolute 0.02 K/mm3 (0.00-0.031); Immature Granulocyte Percent A 0.3 % (0-0.5); Lymphocytes Absolute Auto 1.55 K/mm3 (0.9-3.2); Lymphocytes Percent Auto 19.9 % (18.3-44.2); Mean Corpuscular HGB Conc 32.1 g/dl (32-36); Mean Corpuscular Hemoglobin 31.6 pg (26-34); Mean Corpuscular Volume 98.4 fl (80-100); Mean Platelet Volume 9.4 fl (7.4-10.4); Monocytes Absolute Auto 0.9 K/mm3 (0.1-0.6); Monocytes Percent Auto 11.2 % (2.6-8.5); Neutrophils Percent Auto 64.2 % (45.5-73.1); Platelet Count Result 208 k/mm3 (150-375); Red Cell Distribution Width 13.3 % (11.5-14.5); White Blood Count 7.8 K/mm3 (4.5-10.0)
[2023-07-29 03:48] LABS: Alanine Aminotransferase 30 U/L (6-50); Albumin Level 3.3 g/dL (3.5-5.1); Alkaline Phosphatase 54 U/L (38-126); Anion Gap 3 mmol/L (4-12); Aspartate Amino Transferase 75 U/L (17-59); Blood Urea Nitrogen 23 mg/dL (9-20); Calcium 8.8 mg/dL (8.4-10.2); Carbon Dioxide 27 mmol/L (22-30); Chloride 107 mmol/L (98-107); Creatine Kinase 1421 U/L (55-170); Estimated CRCL calculation 42 ml/min; Estimated Glomerular Filt Rate > 60; Glucose 83 mg/dL (65-110); Phosphorus 3.6 mg/dL (2.5-4.5); Potassium 3.3 mmol/L (3.4-5.0); Sodium 137 mmol/L (137-145)
[2023-07-29 04:01] LABS: Troponin I 0.038 ng/mL (0.000-0.034)
--- NOTE | 2023-07-29 18:17 | PM.IMPN ---
Progress Note: A&P Assessment and Plan (1) Frequent falls: Code(s): R29.6 - Repeated falls Status: Acute Assessment and Plan: - hx of frequent falls and parkinson's, uses lift recliner, lives at home alone and has spice mixer - troponin initially negative, awaiting 2nd troponin - EKG: Normal sinus rhythm at a rate of 67 beats per minute.? VA interval 185.? QRS 93.? QT/ QTC 420/436.? Good R-wave progression across the precordial leads.? No T-wave inversions. - PT/OT eval and treat - care coordination consulted for SNF placement/acute rehab - fall precautions (2) Elevated CPK: Code(s): R74.8 - Abnormal levels of other serum enzymes Status: Acute Assessment and Plan: - CK 2774 - trend CK and renal function - suspect elevation secondary to prolonged down time post-fall - IV fluids: 1L bolus, continue as 100 mL/hr. assess daily for appropriateness to d/c IV fluids. - monitor I&Os (3) Chronic kidney disease, stage 3: Code(s): N18.30 - Chronic kidney disease, stage 3 unspecified Status: Chronic Assessment and Plan: - creatinine 1.0 and GFR >60 - hx of CKD stage III - trend renal function - trend electrolytes, correct as needed (4) Hypertension: Qualifiers: Hypertension type: primary hypertension Qualified Code(s): I10 - Essential (primary) hypertension Code(s): I10 - Essential (primary) hypertension Status: Chronic Assessment and Plan: - chronic, currently 173/80 - awaiting med rec - monitor Plan Patient here after ground level fall, CK elevated at 2774. Rehydrate. Trend CK and renal function. PT/OT eval and treat, care coordination consulted for possible acute rehab placement. Diet: heart healthy GI Prophylaxis: not currently indicated DVT Prophylaxis: SCDs Lines: peripheral Code Status: DNR Time Spent With Patient Time with patient: 25 - 35 minutes Subjective Date/time seen: 07/29/23 18:17 Interval history: 07/29/23: Seen and examined; being managed for falls and physical deconditioning Review of Systems Review of Systems: All systems reviewed & are unremarkable except as noted in HPI and below Exam Narrative: A/Ox3, unable to provide situational information. Const: General: comfortable and no acute distress Other: , male, chronically ill-appearing HENMT: Mouth: Yes moist mucous membranes Eyes: General: appearance normal, both eyes and all related structures Sclera: sclerae normal Pupils: Equal, round and reactive pupils present Other: 1-2 mm and reactive. Resp: Effort & Inspection: normal respiratory effort Auscultation: clear to auscultation bilaterally Cardio: Rate: regular rate Rhythm: regular rhythm Other: S1-S2 present without murmur, rub, ectopy GI: Other: Abdomen soft and nontender. Urinary Catheter: Urinary Catheter: patent and draining Skin: General skin exam: normal color Other: abrasion to R shoulder. small area of erythema to medial right cheek and lateral right cheek near adventist. abrasion right chest wall. PEG tube reversed, old site well healed. small horizontal abrasion to left humphrey. Neuro: Cranial nerves: Yes Equal, round and reactive pupils present Speech: normal speech Other: Somnolent, A&O x3 and unable to provide situational history. No focal deficits. Extrem: General: normal exam except as noted Other: 2+ pitting edema BLE, no asymmetry. Psych: Mental Status: mental status grossly normal Other: Blunted affect, may be due to somnolence. Objective Data Vital Signs Vital Signs: Vital Signs - 24 hr 07/28/23 20:00 07/29/23 04:00 07/29/23 06:00 Temperature 99.1 F 97.9 F Pulse Rate 60 61 56 L Respiratory Rate 20 18 Blood Pressure 143/89 H 140/73 Pulse Oximetry 95 98 Oxygen Delivery 07/29/23 08:00 07/29/23 10:02 07/29/23 08:00 Temperature Pulse Rate 59 L Respiratory Ra
[2023-07-30] VITALS (11 sets, daily range): BP systolic 83–145; BP diastolic 55–79; PULSE 59–87; RESP 16–20; TEMP 36.8–37.3; O2SAT 97
[2023-07-30] MEDS: LACTATED RINGERS 1,000 ML 100 ML IV CONT (01:40)
[2023-07-30 06:06] LABS: Basophils Absolute Auto 0.1 K/mm3 (0.0-0.1); Basophils Percent Auto 0.8 % (0.2-1.2); Eosinophils Absolute Auto 0.3 K/mm3 (0-0.3); Eosinophils Percent Auto 3.7 % (0-4.4); Hematocrit 30.1 % (42.0-52.0); Hemoglobin 9.8 g/dL (14.0-18.0); Immature Granulocyte Absolute 0.03 K/mm3 (0.00-0.031); Immature Granulocyte Percent A 0.4 % (0-0.5); Lymphocytes Absolute Auto 1.23 K/mm3 (0.9-3.2); Lymphocytes Percent Auto 15.8 % (18.3-44.2); Mean Corpuscular HGB Conc 32.6 g/dl (32-36); Mean Corpuscular Hemoglobin 31.2 pg (26-34); Mean Corpuscular Volume 95.9 fl (80-100); Mean Platelet Volume 9.6 fl (7.4-10.4); Monocytes Absolute Auto 1.1 K/mm3 (0.1-0.6); Monocytes Percent Auto 13.5 % (2.6-8.5); Neutrophils Absolute Auto 5.1 K/mm3 (1.3-6.7); Neutrophils Percent Auto 65.8 % (45.5-73.1); Platelet Count Result 185 k/mm3 (150-375); Red Blood Count 3.14 M/mm3 (4.6-6.20); Red Cell Distribution Width 13.3 % (11.5-14.5); White Blood Count 7.8 K/mm3 (4.5-10.0)
[2023-07-30 06:16] LABS: Alanine Aminotransferase 34 U/L (6-50); Albumin Level 3.2 g/dL (3.5-5.1); Alkaline Phosphatase 56 U/L (38-126); Anion Gap 1 mmol/L (4-12); Aspartate Amino Transferase 58 U/L (17-59); Bilirubin,Total 0.7 mg/dL (0.2-1.3); Blood Urea Nitrogen 20 mg/dL (9-20); Calcium 8.4 mg/dL (8.4-10.2); Carbon Dioxide 28 mmol/L (22-30); Chloride 106 mmol/L (98-107); Estimated CRCL calculation 42 ml/min; Estimated Glomerular Filt Rate > 60; Glucose 93 mg/dL (65-110); Potassium 3.4 mmol/L (3.4-5.0); Sodium 135 mmol/L (137-145)
[2023-07-30 09:18] LABS: Creatine Kinase 813 U/L (55-170)
[2023-07-30 09:28] LABS: Troponin I 0.018 ng/mL (0.000-0.034)
[2023-07-30] MEDS: METOPROLOL TARTRATE 12.5 MG TABLET PO ×2 (12:19→21:11)
[2023-07-30] MEDS: rOPINIRole HCL 0.5 MG TABLET 1.5 MG PO ×3 (12:20→21:12)
[2023-07-30] MEDS: CARBIDOPA/LEVODOPA 25/100 MG TABLET 3 TABLET PO ×3 (12:20→21:12)
--- NOTE | 2023-07-30 14:41 | PCPTNOTE ---
Patient refused therapy at this time. Patient was educated on the benefits of therapy however continued to decline at this time.
--- NOTE | 2023-07-30 17:46 | PM.IMPN ---
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 [place] interval 185.? QRS 93.? QT/ QTC 420/436.? Good R-wave progression across the precordial leads.? No T-wave inversions. - PT/OT eval and treat - care coordination consulted for SNF placement/acute rehab - fall precautions (2) Elevated CPK: Code(s): R74.8 - Abnormal levels of other serum enzymes Status: Acute Assessment and Plan: - CK closely downtrending 2774 -> 1421 -> 813 - trend CK and renal function - suspect elevation secondary to prolonged down time post-fall - IV fluids: 1L bolus, continue as 100 mL/hr. assess daily for appropriateness to d/c IV fluids. - monitor I&Os (3) Chronic kidney disease, stage 3: Code(s): N18.30 - Chronic kidney disease, stage 3 unspecified Status: Chronic Assessment and Plan: - creatinine 1.0 and GFR >60 - hx of CKD stage III - trend renal function - trend electrolytes, correct as needed (4) Hypertension: Qualifiers: Hypertension type: primary hypertension Qualified Code(s): I10 - Essential (primary) hypertension Code(s): I10 - Essential (primary) hypertension Status: Chronic Assessment and Plan: - chronic, currently 173/80 - awaiting med rec - monitor (5) Elevation of cardiac enzymes: Code(s): R74.8 - Abnormal levels of other serum enzymes Status: Acute Assessment and Plan: -likely due to myocardial demand ischemia caused by fall and rhabdomyolysis -cardiac enzymes downtrending and now within normal range 0.041 -> 0.038 -> 0.018 -patient does not complain of any chest pain Plan Patient here after ground level fall, CK elevated at 2774. Rehydrate. Trend CK and renal function. PT/OT eval and treat, care coordination consulted for possible acute rehab placement. Patient with intermittent confusion. May consider sedative agents/soft restraints as needed. Diet: heart healthy GI Prophylaxis: not currently indicated DVT Prophylaxis: SCDs Lines: peripheral Code Status: DNR ? Patient seen and examined at bedside during my morning rounds ? Collaborated with patient's nurse at the bedside in detail and addressed all concerns ? Labs, electrolytes, radiology, investigations and test results reviewed ? Consult/Nursing/Ancilliary notes on the chart reviewed and appreciated ? Spoke with patient/family at the bedside and answered all the questions that they had Repeat labs in a.m. Electrolyte replacement as per protocol. Patient will be monitored very closely on the floor. Further recommendations as per the hospital course. Time Spent With Patient Time with patient: 15 - 25 minutes Subjective Date/time seen: 07/30/23 17:46 Interval history: 07/29/23: Seen and examined; being managed for falls and physical deconditioning 07/30/2023: Patient continues to have her intermittent confusion and pulling IV lines. Review of Systems Review of Systems: ROS unobtainable: Yes unobtainable due to mental status Exam Narrative: Patient alternates between A/Ox3 and pleasantly confused. Intermittent unable to provide situational information Const: General: comfortable and no acute distress Other: , male, chronically ill-appearing HENMT: Mouth: Yes moist mucous membranes Eyes: General: appearance normal, both eyes and all related structures Sclera: sclerae normal Pupils: Equal, round and reactive pupils present Other: 1-2 mm and reactive. Resp: Effort & Inspection: normal respiratory effort Auscultation: clear to auscultation bilaterally Cardio: Rate: regular rate Rhythm: regular rhythm Other: S1-
[2023-07-30] MEDS: TAMSULOSIN HCL 0.4 MG CAPSULE PO (21:11)
[2023-07-30] MEDS: ROSUVASTATIN 10 MG TABLET PO (21:13)
[2023-07-31] VITALS (12 sets, daily range): BP systolic 115–164; BP diastolic 69–75; PULSE 59–83; RESP 18–24; TEMP 36.7–37.9; O2SAT 97–99
[2023-07-31] MEDS: LACTATED RINGERS 1,000 ML 100 ML IV CONT ×2 (00:50→12:19)
[2023-07-31 05:23] LABS: Basophils Absolute Auto 0.1 K/mm3 (0.0-0.1); Basophils Percent Auto 0.5 % (0.2-1.2); Eosinophils Absolute Auto 0.2 K/mm3 (0-0.3); Eosinophils Percent Auto 2.1 % (0-4.4); Hematocrit 30.3 % (42.0-52.0); Hemoglobin 9.7 g/dL (14.0-18.0); Immature Granulocyte Absolute 0.03 K/mm3 (0.00-0.031); Immature Granulocyte Percent A 0.3 % (0-0.5); Lymphocytes Absolute Auto 1.06 K/mm3 (0.9-3.2); Lymphocytes Percent Auto 11.1 % (18.3-44.2); Mean Corpuscular Hemoglobin 31.1 pg (26-34); Mean Corpuscular Volume 97.1 fl (80-100); Mean Platelet Volume 9.9 fl (7.4-10.4); Monocytes Absolute Auto 1.2 K/mm3 (0.1-0.6); Monocytes Percent Auto 12.9 % (2.6-8.5); Neutrophils Percent Auto 73.1 % (45.5-73.1); Platelet Count Result 189 k/mm3 (150-375); Red Blood Count 3.12 M/mm3 (4.6-6.20); Red Cell Distribution Width 13.2 % (11.5-14.5); White Blood Count 9.6 K/mm3 (4.5-10.0)
[2023-07-31 05:39] LABS: Magnesium 1.9 mg/dL (1.6-2.3); Phosphorus 3.1 mg/dL (2.5-4.5)
[2023-07-31 05:43] LABS: Alanine Aminotransferase 12 U/L (6-50); Albumin Level 3.3 g/dL (3.5-5.1); Alkaline Phosphatase 60 U/L (38-126); Anion Gap 3 mmol/L (4-12); Aspartate Amino Transferase 51 U/L (17-59); Bilirubin,Total 0.9 mg/dL (0.2-1.3); Blood Urea Nitrogen 14 mg/dL (9-20); Calcium 8.7 mg/dL (8.4-10.2); Carbon Dioxide 27 mmol/L (22-30); Chloride 104 mmol/L (98-107); Estimated CRCL calculation 51 ml/min; Estimated Glomerular Filt Rate > 60; Glucose 111 mg/dL (65-110); Potassium 3.5 mmol/L (3.4-5.0); Sodium 134 mmol/L (137-145)
[2023-07-31 08:43] LABS: Creatine Kinase 619 U/L (55-170)
[2023-07-31] MEDS: rOPINIRole HCL 0.5 MG TABLET 1.5 MG PO ×4 (09:53→20:41)
[2023-07-31] MEDS: CARBIDOPA/LEVODOPA 25/100 MG TABLET 3 TABLET PO ×4 (09:54→20:41)
[2023-07-31] MEDS: ASPIRIN 81 MG CHEWABLE TABLET PO (09:54)
[2023-07-31] MEDS: METOPROLOL TARTRATE 12.5 MG TABLET PO ×2 (09:54→20:42)
--- NOTE | 2023-07-31 11:39 | PCSTNOTE ---
Bedside swallowing evaluation completed. Cursory oral peripheral examination reveals upper full denture, worn and some missing lower teeth, overall moderately reduced oral motor strength, control, and range of motion. Patient was able to suck thin liquid through straw during first trial, and to swallow, with delayed oral transit time. On second trial, patient was able to suck liquid through straw but unable to swallow, and liquid bolus remained in his mouth for over 60 seconds while he attempted to initiate a swallowing reflex with cues, and he was unable. He also was unable to spit out bolus with prompts. He eventually cleared the bolus with multiple swallows and extra time, but soft signs of aspiration included watering eyes. Based on the results of this evaluation, recommendations are: pureed diet, thin liquids, swallowing precaution recommendations including small sips/bite size, swallow each bolus before taking another bite, upright positioning, straws ok, give flavored liquids such as lemonade instead of plain water to provide additional sensory feedback, perform oral cavity check after meals to ensure no food residue is pocketed. As this patient's overall condition is still changing, he may be more consistently able to swallow safely later. A second bedside swallowing evaluation is recommended tomorrow to determine whether patient's diet texture can be advanced. No speech therapy is recommended at this time due to patient's fluctuating cognition and orientation, and fatigability. If patient becomes more alert and less confused speech therapy might be an option to address his swallowing. Thank you very much for the referral of this patient.
--- NOTE | 2023-07-31 15:16 | PM.IMPN ---
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 [place] interval 185.? QRS 93.? QT/ QTC 420/436.? Good R-wave progression across the precordial leads.? No T-wave inversions. - PT/OT eval and treat - care coordination coordinating to get SNF/acute rehab placement - fall precautions (2) Elevated CPK: Code(s): R74.8 - Abnormal levels of other serum enzymes Status: Acute Assessment and Plan: - CK closely downtrending 2774 -> 1421 -> 813 -> 619 - trend CK and renal function - suspect elevation secondary to prolonged down time post-fall - IV fluids: 1L bolus, continue as 100 mL/hr, now cut down to 75 cc per hour - monitor I&Os (3) Chronic kidney disease, stage 3: Code(s): N18.30 - Chronic kidney disease, stage 3 unspecified Status: Chronic Assessment and Plan: - creatinine 1.0 and GFR >60 - hx of CKD stage III - trend renal function - trend electrolytes, correct as needed (4) Hypertension: Qualifiers: Hypertension type: primary hypertension Qualified Code(s): I10 - Essential (primary) hypertension Code(s): I10 - Essential (primary) hypertension Status: Chronic Assessment and Plan: - chronic stable, continue with meds (5) Elevation of cardiac enzymes: Code(s): R74.8 - Abnormal levels of other serum enzymes Status: Acute Assessment and Plan: -likely due to myocardial demand ischemia caused by fall and rhabdomyolysis -cardiac enzymes downtrending and now within normal range 0.041 -> 0.038 -> 0.018 -patient does not complain of any chest pain (6) Oropharyngeal dysphagia: Code(s): R13.12 - Dysphagia, oropharyngeal phase Status: Acute Assessment and Plan: 07/31/2023: Patient evaluated by speech and recommended pureed diet with thick liquids. Repeat swallow eval in am Plan Diet: Pureed diet with thick liquids GI Prophylaxis: not currently indicated DVT Prophylaxis: SCDs Lines: peripheral Code Status: DNR ? Patient seen and examined at bedside during my morning rounds ? Collaborated with patient's nurse at the bedside in detail and addressed all concerns ? Labs, electrolytes, radiology, investigations and test results reviewed ? Consult/Nursing/Ancilliary notes on the chart reviewed and appreciated ? Spoke with patient/family at the bedside and answered all the questions that they had Repeat labs in a.m. Electrolyte replacement as per protocol. Patient will be monitored very closely on the floor. Further recommendations as per the hospital course. Time Spent With Patient Time with patient: 15 - 25 minutes Subjective Date/time seen: 07/31/23 15:16 Interval history: 07/29/23: Seen and examined; being managed for falls and physical deconditioning 07/30/2023: Patient continues to have her intermittent confusion and pulling IV lines. 07/31/2023: Patient's mentation is slowly improving. Still have PT confusion. Spoke with the speech therapy in detail and started patient on pureed diet and thick liquids. DC Escalante ordered. Review of Systems Review of Systems: 14 systems were reviewed with pertinent positives and negatives per HPI. Except as documented in the HPI/progress notes, all other systems were reviewed and are negative. All systems reviewed & are unremarkable except as noted in HPI and below ROS unobtainable: Yes unobtainable due to mental status Exam Narrative: PHYSICAL EXAMINATION: Vital signs: Please see the chart General physical exam: Patient pleasant and cooperative with exam, has periods of intermittent confusion, feels weak and tired Head/eyes: Atr
[2023-07-31] MEDS: DONEPEZIL HCL 10 MG TABLET PO (17:57)
[2023-07-31] MEDS: LACTATED RINGERS 1,000 ML 75 ML IV CONT (20:40)
[2023-07-31] MEDS: ROSUVASTATIN 10 MG TABLET PO (20:41)
[2023-07-31] MEDS: TAMSULOSIN HCL 0.4 MG CAPSULE PO (20:42)
[2023-07-31] MEDS: ACETAMINOPHEN 325 MG TABLET 650 MG PO (20:56)
[2023-08-01] VITALS (13 sets, daily range): BP systolic 108–153; BP diastolic 66–74; PULSE 57–80; RESP 14–21; TEMP 36.2–36.8; O2SAT 94–100
[2023-08-01 06:07] LABS: Basophils Percent Auto 0.6 % (0.2-1.2); Eosinophils Absolute Auto 0.4 K/mm3 (0-0.3); Eosinophils Percent Auto 6.1 % (0-4.4); Hematocrit 31.6 % (42.0-52.0); Immature Granulocyte Absolute 0.02 K/mm3 (0.00-0.031); Immature Granulocyte Percent A 0.3 % (0-0.5); Lymphocytes Percent Auto 17.9 % (18.3-44.2); Mean Corpuscular HGB Conc 31.6 g/dl (32-36); Mean Corpuscular Hemoglobin 31.3 pg (26-34); Mean Corpuscular Volume 99.1 fl (80-100); Mean Platelet Volume 10.4 fl (7.4-10.4); Monocytes Absolute Auto 0.9 K/mm3 (0.1-0.6); Monocytes Percent Auto 11.7 % (2.6-8.5); Neutrophils Absolute Auto 4.6 K/mm3 (1.3-6.7); Neutrophils Percent Auto 63.4 % (45.5-73.1); Platelet Count Result 190 k/mm3 (150-375); Red Blood Count 3.19 M/mm3 (4.6-6.20); Red Cell Distribution Width 13.1 % (11.5-14.5); White Blood Count 7.3 K/mm3 (4.5-10.0)
[2023-08-01 06:24] LABS: Alanine Aminotransferase 8 U/L (6-50); Albumin Level 3.6 g/dL (3.5-5.1); Alkaline Phosphatase 63 U/L (38-126); Anion Gap 3 mmol/L (4-12); Aspartate Amino Transferase 36 U/L (17-59); Bilirubin,Total 1.1 mg/dL (0.2-1.3); Blood Urea Nitrogen 14 mg/dL (9-20); Calcium 8.7 mg/dL (8.4-10.2); Carbon Dioxide 28 mmol/L (22-30); Chloride 102 mmol/L (98-107); Creatine Kinase 341 U/L (55-170); Estimated CRCL calculation 51 ml/min; Estimated Glomerular Filt Rate > 60; Glucose 90 mg/dL (65-110); Potassium 3.5 mmol/L (3.4-5.0); Sodium 133 mmol/L (137-145)
[2023-08-01] MEDS: LACTATED RINGERS 1,000 ML 75 ML IV CONT ×2 (10:31→20:33)
[2023-08-01] MEDS: ASPIRIN 81 MG CHEWABLE TABLET PO (10:32)
[2023-08-01] MEDS: CARBIDOPA/LEVODOPA 25/100 MG TABLET 3 TABLET PO ×4 (10:32→20:33)
[2023-08-01] MEDS: METOPROLOL TARTRATE 12.5 MG TABLET PO ×2 (10:33→20:32)
[2023-08-01] MEDS: rOPINIRole HCL 0.5 MG TABLET 1.5 MG PO ×4 (10:36→20:32)
[2023-08-01] MEDS: DONEPEZIL HCL 10 MG TABLET PO (17:25)
--- NOTE | 2023-08-01 18:10 | PM.IMPN ---
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 [place] interval 185.? QRS 93.? QT/ QTC 420/436.? Good R-wave progression across the precordial leads.? No T-wave inversions. - PT/OT eval and treat - care coordination coordinating to get SNF/acute rehab placement - fall precautions (2) Elevated CPK: Code(s): R74.8 - Abnormal levels of other serum enzymes Status: Acute Assessment and Plan: - CK closely downtrending 2774 -> 1421 -> 813 -> 619 -> 341 - trend CK and renal function - suspect elevation secondary to prolonged down time post-fall - IV fluids: 1L bolus, continue as 100 mL/hr, now cut down to 75 cc per hour - monitor I&Os (3) Chronic kidney disease, stage 3: Code(s): N18.30 - Chronic kidney disease, stage 3 unspecified Status: Chronic Assessment and Plan: - creatinine 0.9 and GFR >60 - hx of CKD stage III - trend renal function - trend electrolytes, correct as needed (4) Hypertension: Qualifiers: Hypertension type: primary hypertension Qualified Code(s): I10 - Essential (primary) hypertension Code(s): I10 - Essential (primary) hypertension Status: Chronic Assessment and Plan: - chronic stable, continue with meds (5) Elevation of cardiac enzymes: Code(s): R74.8 - Abnormal levels of other serum enzymes Status: Acute Assessment and Plan: -likely due to myocardial demand ischemia caused by fall and rhabdomyolysis -cardiac enzymes downtrending and now within normal range 0.041 -> 0.038 -> 0.018 -patient does not complain of any chest pain (6) Oropharyngeal dysphagia: Code(s): R13.12 - Dysphagia, oropharyngeal phase Status: Acute Assessment and Plan: 07/31/2023: Patient evaluated by speech and recommended pureed diet with thick liquids. Repeat swallow eval in am. May need redo swallow evaluation Plan Diet: Pureed diet with thick liquids GI Prophylaxis: not currently indicated DVT Prophylaxis: SCDs Lines: peripheral Code Status: DNR DC planning: Back to [facility] in a.m. if he remains stable and passes swallow eval ? Patient seen and examined at bedside during my morning rounds ? Collaborated with patient's nurse at the bedside in detail and addressed all concerns ? Labs, electrolytes, radiology, investigations and test results reviewed ? Consult/Nursing/Ancilliary notes on the chart reviewed and appreciated ? Spoke with patient/family at the bedside and answered all the questions that they had Repeat labs in a.m. Electrolyte replacement as per protocol. Patient will be monitored very closely on the floor. Further recommendations as per the hospital course. Time Spent With Patient Time with patient: 15 - 25 minutes Subjective Date/time seen: 08/01/23 18:10 Interval history: 07/29/23: Seen and examined; being managed for falls and physical deconditioning 07/30/2023: Patient continues to have her intermittent confusion and pulling IV lines. 07/31/2023: Patient's mentation is slowly improving. Still have PT confusion. Spoke with the speech therapy in detail and started patient on pureed diet and thick liquids. DC Escalante ordered. 08/01/2023: Patient lying in bed during my morning rounds. Still has intermittent confusion. CK is slowly downtrending. Review of Systems Review of Systems: 14 systems were reviewed with pertinent positives and negatives per HPI. Except as documented in the HPI/progress notes, all other systems were reviewed and are negative. All systems reviewed & are unremarkable except as noted in HPI and below Exam Narrative: PHYS
[2023-08-01] MEDS: ROSUVASTATIN 10 MG TABLET PO (20:32)
[2023-08-01] MEDS: TAMSULOSIN HCL 0.4 MG CAPSULE PO (20:32)
[2023-08-02] VITALS (12 sets, daily range): BP systolic 116–167; BP diastolic 72–83; PULSE 54–94; RESP 16–20; TEMP 36.2–36.9; O2SAT 96–99
[2023-08-02 05:38] LABS: Basophils Absolute Auto 0.1 K/mm3 (0.0-0.1); Basophils Percent Auto 0.7 % (0.2-1.2); Eosinophils Absolute Auto 0.6 K/mm3 (0-0.3); Eosinophils Percent Auto 8.4 % (0-4.4); Hematocrit 31.9 % (42.0-52.0); Hemoglobin 10.3 g/dL (14.0-18.0); Immature Granulocyte Absolute 0.02 K/mm3 (0.00-0.031); Immature Granulocyte Percent A 0.3 % (0-0.5); Lymphocytes Absolute Auto 0.94 K/mm3 (0.9-3.2); Lymphocytes Percent Auto 13.2 % (18.3-44.2); Mean Corpuscular HGB Conc 32.3 g/dl (32-36); Mean Corpuscular Hemoglobin 31.4 pg (26-34); Mean Corpuscular Volume 97.3 fl (80-100); Mean Platelet Volume 9.8 fl (7.4-10.4); Monocytes Absolute Auto 0.8 K/mm3 (0.1-0.6); Monocytes Percent Auto 10.9 % (2.6-8.5); Neutrophils Absolute Auto 4.7 K/mm3 (1.3-6.7); Neutrophils Percent Auto 66.5 % (45.5-73.1); Platelet Count Result 193 k/mm3 (150-375); Red Blood Count 3.28 M/mm3 (4.6-6.20); Red Cell Distribution Width 12.8 % (11.5-14.5); White Blood Count 7.1 K/mm3 (4.5-10.0)
[2023-08-02 05:51] LABS: Alanine Aminotransferase 8 U/L (6-50); Albumin Level 3.6 g/dL (3.5-5.1); Alkaline Phosphatase 66 U/L (38-126); Anion Gap 2 mmol/L (4-12); Aspartate Amino Transferase 41 U/L (17-59); Bilirubin,Total 0.8 mg/dL (0.2-1.3); Blood Urea Nitrogen 15 mg/dL (9-20); Calcium 8.7 mg/dL (8.4-10.2); Carbon Dioxide 29 mmol/L (22-30); Chloride 102 mmol/L (98-107); Creatine Kinase 229 U/L (55-170); Estimated CRCL calculation 51 ml/min; Estimated Glomerular Filt Rate > 60; Glucose 92 mg/dL (65-110); Potassium 3.7 mmol/L (3.4-5.0); Sodium 133 mmol/L (137-145)
[2023-08-02] MEDS: rOPINIRole HCL 0.5 MG TABLET 1.5 MG PO ×4 (09:13→21:05)
[2023-08-02] MEDS: ASPIRIN 81 MG CHEWABLE TABLET PO (09:13)
[2023-08-02] MEDS: METOPROLOL TARTRATE 12.5 MG TABLET PO ×2 (09:13→21:05)
[2023-08-02] MEDS: CARBIDOPA/LEVODOPA 25/100 MG TABLET 3 TABLET PO ×4 (09:15→21:05)
--- NOTE | 2023-08-02 10:04 | PCSTNOTE ---
Please refer to the Bedside Swallow Evaluation in the EMR. Please note, silent aspiration cannot be ruled out at bedside.
[2023-08-02] MEDS: LACTATED RINGERS 1,000 ML 75 ML IV CONT (17:28)
[2023-08-02] MEDS: DONEPEZIL HCL 10 MG TABLET PO (17:28)
--- NOTE | 2023-08-02 18:08 | PM.IMPN ---
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 [place] interval 185.? QRS 93.? QT/ QTC 420/436.? Good R-wave progression across the precordial leads.? No T-wave inversions. - PT/OT eval and treat - fall precautions - care coordination scared a bed for patient to DC (2) Elevated CPK: Code(s): R74.8 - Abnormal levels of other serum enzymes Status: Acute Assessment and Plan: - CK closely downtrending 2774 -> 1421 -> 813 -> 619 -> 341 -> - trend CK and renal function - suspect elevation secondary to prolonged down time post-fall - IV fluids: 1L bolus, continue as 100 mL/hr, now cut down to 75 cc per hour - monitor I&Os (3) Chronic kidney disease, stage 3: Code(s): N18.30 - Chronic kidney disease, stage 3 unspecified Status: Chronic Assessment and Plan: - creatinine 0.9 and GFR >60 - hx of CKD stage III - trend renal function - trend electrolytes, correct as needed (4) Hypertension: Qualifiers: Hypertension type: primary hypertension Qualified Code(s): I10 - Essential (primary) hypertension Code(s): I10 - Essential (primary) hypertension Status: Chronic Assessment and Plan: - chronic stable, continue with meds (5) Elevation of cardiac enzymes: Code(s): R74.8 - Abnormal levels of other serum enzymes Status: Acute Assessment and Plan: -likely due to myocardial demand ischemia caused by fall and rhabdomyolysis -cardiac enzymes downtrending and now within normal range 0.041 -> 0.038 -> 0.018 -patient does not complain of any chest pain (6) Oropharyngeal dysphagia: Code(s): R13.12 - Dysphagia, oropharyngeal phase Status: Acute Assessment and Plan: 07/31/2023: Patient evaluated by speech and recommended pureed diet with thin liquids. Repeat swallow eval in am. May need redo swallow evaluation 08/02/2023: Spoke with the speech therapist in detail. May need stimulation therapy to assist in swallowing Plan Diet: Pureed diet with thin liquids GI Prophylaxis: not currently indicated DVT Prophylaxis: SCDs Lines: peripheral Code Status: DNR DC planning: Back to [facility] in a.m. if he remains stable and swallowing is improved ? Patient seen and examined at bedside during my morning rounds ? Collaborated with patient's nurse at the bedside in detail and addressed all concerns ? Labs, electrolytes, radiology, investigations and test results reviewed ? Consult/Nursing/Ancilliary notes on the chart reviewed and appreciated ? Spoke with patient/family at the bedside and answered all the questions that they had Repeat labs in a.m. Electrolyte replacement as per protocol. Patient will be monitored very closely on the floor. Further recommendations as per the hospital course. Time Spent With Patient Time with patient: 15 - 25 minutes Subjective Date/time seen: 08/02/23 18:08 Interval history: 07/29/23: Seen and examined; being managed for falls and physical deconditioning 07/30/2023: Patient continues to have her intermittent confusion and pulling IV lines. 07/31/2023: Patient's mentation is slowly improving. Still have PT confusion. Spoke with the speech therapy in detail and started patient on pureed diet and thick liquids. DC [place]al[place] ordered. 08/01/2023: Patient lying in bed during my morning rounds. Still has intermittent confusion. CK is slowly downtrending. 08/02/2023: Patient seen and evaluated at bedside. Still has some issues with swallowing. Spoke with speech therapist in detail. Review of Systems Review of Systems: 14 systems were reviewed with pertinent positi
[2023-08-02] MEDS: TAMSULOSIN HCL 0.4 MG CAPSULE PO (21:05)
[2023-08-02] MEDS: ROSUVASTATIN 10 MG TABLET PO (21:05)
[2023-08-03] VITALS: PULSE 53
[2023-08-03 04:00] VITALS: PULSE 64
[2023-08-03 05:40] LABS: Basophils Absolute Auto 0.1 K/mm3 (0.0-0.1); Basophils Percent Auto 0.9 % (0.2-1.2); Eosinophils Absolute Auto 0.8 K/mm3 (0-0.3); Eosinophils Percent Auto 10.7 % (0-4.4); Hematocrit 31.8 % (42.0-52.0); Hemoglobin 10.3 g/dL (14.0-18.0); Immature Granulocyte Absolute 0.02 K/mm3 (0.00-0.031); Immature Granulocyte Percent A 0.3 % (0-0.5); Lymphocytes Absolute Auto 1.19 K/mm3 (0.9-3.2); Mean Corpuscular HGB Conc 32.4 g/dl (32-36); Mean Corpuscular Hemoglobin 31.3 pg (26-34); Mean Corpuscular Volume 96.7 fl (80-100); Mean Platelet Volume 10.3 fl (7.4-10.4); Monocytes Absolute Auto 0.7 K/mm3 (0.1-0.6); Monocytes Percent Auto 10.4 % (2.6-8.5); Neutrophils Absolute Auto 4.3 K/mm3 (1.3-6.7); Neutrophils Percent Auto 60.7 % (45.5-73.1); Platelet Count Result 226 k/mm3 (150-375); Red Blood Count 3.29 M/mm3 (4.6-6.20); Red Cell Distribution Width 12.6 % (11.5-14.5)
[2023-08-03 05:48] LABS: Alanine Aminotransferase 10 U/L (6-50); Albumin Level 3.7 g/dL (3.5-5.1); Alkaline Phosphatase 72 U/L (38-126); Anion Gap 6 mmol/L (4-12); Aspartate Amino Transferase 37 U/L (17-59); Bilirubin,Total 0.6 mg/dL (0.2-1.3); Blood Urea Nitrogen 12 mg/dL (9-20); Calcium 8.9 mg/dL (8.4-10.2); Carbon Dioxide 26 mmol/L (22-30); Chloride 101 mmol/L (98-107); Creatine Kinase 202 U/L (55-170); Estimated CRCL calculation 51 ml/min; Estimated Glomerular Filt Rate > 60; Glucose 87 mg/dL (65-110); Potassium 3.5 mmol/L (3.4-5.0); Sodium 133 mmol/L (137-145)
[2023-08-03 06:00] VITALS: BP 160/76; PULSE 63; RESP 20; TEMP 36.6; O2SAT 98
[2023-08-03] MEDS: LACTATED RINGERS 1,000 ML 75 ML IV CONT (06:36)
[2023-08-03 09:20] VITALS: PULSE 98; RESP 20; O2SAT 98
[2023-08-03] MEDS: METOPROLOL TARTRATE 12.5 MG TABLET PO (09:20)
[2023-08-03] MEDS: CARBIDOPA/LEVODOPA 25/100 MG TABLET 3 TABLET PO ×3 (09:21→17:45)
[2023-08-03] MEDS: ASPIRIN 81 MG CHEWABLE TABLET PO (09:21)
[2023-08-03] MEDS: rOPINIRole HCL 0.5 MG TABLET 1.5 MG PO ×3 (09:21→17:45)
[2023-08-03 13:34] VITALS: BP 94/62; PULSE 63; RESP 18; TEMP 36.6; O2SAT 99
--- NOTE | 2023-08-03 15:41 | PM.DS ---
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 [place] interval 185.? QRS 93.? QT/ QTC 420/436.? Good R-wave progression across the precordial leads.? No T-wave inversions. - PT/OT eval and treat - care coordination consulted for SNF placement/acute rehab - fall precautions (2) Elevated CPK: ?Code(s): R74.8 - Abnormal levels of other serum enzymes ?Status:?Acute ?Assessment and Plan: - CK 2774 - trend CK and renal function - suspect elevation secondary to prolonged down time post-fall - IV fluids: 1L bolus, continue as 100 mL/hr. assess daily for appropriateness to d/c IV fluids. - monitor I&Os (3) Chronic kidney disease, stage 3: ?Code(s): N18.30 - Chronic kidney disease, stage 3 unspecified ?Status:?Chronic ?Assessment and Plan: - creatinine 1.0 and GFR >60 - hx of CKD stage III - trend renal function - trend electrolytes, correct as needed (4) Hypertension: ?Qualifiers: ?Hypertension type:?primary hypertension? Qualified Code(s):?I10 - Essential (primary) hypertension ?Code(s): I10 - Essential (primary) hypertension ?Status:?Chronic ?Assessment and Plan: - chronic, currently 173/80 - awaiting med rec - monitor DS: Discharge Diagnosis Discharge Diagnosis (1) Oropharyngeal dysphagia: Code(s): R13.12 - Dysphagia, oropharyngeal phase Status: Acute (2) Elevation of cardiac enzymes: Code(s): R74.8 - Abnormal levels of other serum enzymes Status: Acute (3) Anemia: Code(s): D64.9 - Anemia, unspecified Status: Acute (4) Rhabdomyolysis: Qualifiers: Encounter type: initial encounter Rhabdomyolysis type: traumatic Qualified Code(s): T79.6XXA - Traumatic ischemia of muscle, initial encounter Code(s): M62.82 - Rhabdomyolysis Status: Acute (5) Generalized weakness: Code(s): R53.1 - Weakness Status: Acute (6) Frequent falls: Code(s): R29.6 - Repeated falls Status: Acute (7) Hypertrophy of seminal vesicle: Code(s): N50.89 - Other specified disorders of the male genital organs Status: Acute (8) Altered mental status: Qualifiers: Altered mental status type: somnolence Qualified Code(s): R40.0 - Somnolence Code(s): R41.82 - Altered mental status, unspecified Status: Acute (9) Rzevw-zw-dwiotuo kidney injury: Code(s): N17.9 - Acute kidney failure, unspecified; N18.9 - Chronic kidney disease, unspecified Status: Acute (10) Chronic kidney disease, stage 3: Code(s): N18.30 - Chronic kidney disease, stage 3 unspecified Status: Chronic (11) Benign prostatic hyperplasia: Code(s): N40.0 - Benign prostatic hyperplasia without lower urinary tract symptoms Status: Acute (12) Dysphagia: Code(s): R13.10 - Dysphagia, unspecified Status: Acute (13) Dysphasia: Code(s): R47.02 - Dysphasia Status: Acute (14) Overweight (BMI 25.0-29.9): Status: Acute (15) Hypertension: Qualifiers: Hypertension type: primary hypertension Qualified Code(s): I10 - Essential (primary) hypertension Code(s): I10 - Essential (primary) hypertension Status: Chronic (16) Parkinsons disease: Code(s): G20 - Parkinson's disease Status: Chronic DS: Summary Hospital Course Reason for hospitalization: Patient brought to the ER for evaluation after having a ground level fall Hospital Course: H&P: HPI History of Present Illness Date/Time: 07/28/23? 16:30 Chief Complaint: Fall Narrative: 83 y/o M presents here
[2023-08-03 16:58] LABS: SARS-CoV-2 RNA PCR Negative (Negative)
[2023-08-03] MEDS: DONEPEZIL HCL 10 MG TABLET PO (17:45)
== END 2023-08-03 18:41 | DRG 565 ==
LOC: ANHED 11:25 → ANH3MED 14:42
PROVIDERS: Student in an Organized Health Care Education/Training Program; Admitting Provider Internal Medicine; Emergency Provider Student in an Organized Health Care Education/Training Program; PCP Internal Medicine; Visit Provider Family Medicine
DX: T79.6XXA Traumatic ischemia of muscle, initial encounter (principal); I24.89 Other forms of acute ischemic heart disease; W19.XXXA Unspecified fall, initial encounter; R29.6 Repeated falls; D63.1 Anemia in chronic kidney disease; I12.9 Hypertensive chronic kidney disease with stage 1 through stage 4 chronic kidney disease, or unspecified chronic kidney disease; N18.30 Chronic kidney disease, stage 3 unspecified; E78.5 Hyperlipidemia, unspecified; G20.A1 Parkinson's disease without dyskinesia, without mention of fluctuations; K21.9 Gastro-esophageal reflux disease without esophagitis; N40.0 Benign prostatic hyperplasia without lower urinary tract symptoms; R13.10 Dysphagia, unspecified; Z85.46 Personal history of malignant neoplasm of prostate; R74.8 Abnormal levels of other serum enzymes; Z66 Do not resuscitate; Z79.82 Long term (current) use of aspirin; Z11.52 Encounter for screening for COVID-19
CPT/HCPCS: 36415; 70450; 71045; 80053; 81001; 82550; 83605; 83735; 83880; 84100; 84484; 85025; 87635; 92526; 92610; 93005; 97110; 97161; 97166; 97530; 99285; A9270; G0378; J7030; J7120

== ENCOUNTER 2023-10-18 08:11 | Inpatient (IN) | payer MEDICARE, SELFPAY ==
[2023-10-18] VITALS (19 sets, daily range): BP systolic 84–218; BP diastolic 46–124; PULSE 51–98; RESP 15–22; TEMP 36.3–36.6; O2SAT 92–100
--- NOTE | ~2023-10-18 | CT_ITS ---
EXAMINATION: CT brain wo con DATE: 10/21/2023 10:07 INDICATION: Stroke. TECHNIQUE: Computed tomography (CT) of the head was performed without intravenous contrast. The mA wa s adjusted according to patient size. Iterative reconstruction technique was employed. The dose-lengt h product was 681.00 mGy-cm. COMPARISON: Head CT 10/18/2023 FINDINGS: There are scattered areas of low attenuation in the cerebral white matter. There is no intr acranial hemorrhage, acute infarction, or abnormal intracranial mass lesion. The ventricles are thais l in size. The orbits are normal. There is mild mucosal thickening in the paranasal sinuses. The mast oid air cells are normal. IMPRESSION: 1. Stable moderate nonspecific cerebral white matter disease, which likely represents chronic small v essel ischemic disease. Reviewed, dictated and finalized at location A. IMPRESSION: 1. Stable moderate nonspecific cerebral white matter disease, which likely repr esents chronic small vessel ischemic disease.
--- NOTE | ~2023-10-18 | XR_ITS ---
EXAMINATION: XR chest 1V DATE: 10/18/2023 09:29 INDICATION: Syncope. TECHNIQUE: A single frontal view of the chest was obtained. COMPARISON: Chest single view 07/28/2023, chest CT 06/16/2023 FINDINGS: Calcified right lung nodules and calcified right hilar and mediastinal lymph nodes are cons istent with old granulomatous disease. No pleural effusion or pneumothorax. The heart size is normal. IMPRESSION: 1. No acute cardiopulmonary disease. Reviewed, dictated and finalized at location A.
--- NOTE | ~2023-10-18 | MR_ITS ---
MR brain/brain stem wo con Ordering provider: Eliana Dos Santos MD History: 83 years Male with . R facial droop, confusion x 2 days. . Comparison: CT head performed yesterday. Technique: MRI brain was performed without contrast. FINDINGS: BONES: Normal. CRANIOCERVICAL JUNCTION: normal. PITUITARY: Normal. MAJOR INTRACRANIAL VESSELS: Normal flow void. OPTIC NERVES AND CRANIAL NERVES VII AND VIII COMPLEXES: Grossly normal. BRAIN PARENCHYMA AND CSF SPACES: Mild nonspecific T2 white matter hyperintensities are seen in a francisco ateral periventricular and deep white matter distribution which are likely related to chronic ischemi c small vessel disease. Mild diffuse cortical atrophy. Mild ventricular dilatation. The brainstem an d cerebellum are normal. No acute or chronic intracranial hemorrhage. No extra axial fluid collection s. Diffusion weighted and ADC mapping images reveal no recent ischemia. No midline shift or mass effe ct. PARANASAL SINUSES: Normal. MASTOIDS: Normal SUPERFICIAL/SURROUNDING SOFT TISSUES: Normal. IMPRESSION: 1. No acute intracranial process. 2. Brain atrophy with mild deep white matter ischemic changes. Reviewed, dictated and finalized at location A.
--- NOTE | ~2023-10-18 | CT_ITS ---
EXAMINATION: CT brain wo con DATE: 10/18/2023 09:22 INDICATION: Syncope. Fall. TECHNIQUE: Computed tomography (CT) of the head was performed without intravenous contrast. The mA wa s adjusted according to patient size. Iterative reconstruction technique was employed. The dose-lengt h product was 681.00 mGy-cm. COMPARISON: Head CT 07/28/2023 FINDINGS: There are scattered areas of low attenuation in the cerebral white matter. There is no intr acranial hemorrhage, acute infarction, or abnormal intracranial mass lesion. The ventricles are thais l in size. There is mild mucosal thickening in the paranasal sinuses. The orbits are normal. The mast oid air cells are normal. IMPRESSION: 1. Stable moderate nonspecific cerebral white matter disease, which likely represents chronic small v essel ischemic disease. Reviewed, dictated and finalized at location A. IMPRESSION: 1. Stable moderate nonspecific cerebral white matter disease, which likely repr esents chronic small vessel ischemic disease.
--- NOTE | ~2023-10-18 | CT_ITS ---
EXAMINATION: CTA brain carotid DATE: 10/21/2023 10:16 INDICATION: Right facial weakness. TECHNIQUE: Computed tomographic angiography (CTA) of the head was performed with 100 mL Omnipaque-350 intravenous contrast. CTA of the neck was performed with intravenous contrast. Automated exposure co ntrol and iterative reconstruction technique were employed. The dose-length product was 1238.25 mGy-c m. Maximum intensity projection and volume rendered 3D-reconstructions were created by the [email or web address] st on a separate workstation. COMPARISON: Head CT 10/21/2023 FINDINGS: HEAD CTA: There are scattered areas of low attenuation in the cerebral white matter. There is no intr acranial hemorrhage, acute infarction, or abnormal intracranial mass lesion. The ventricles are thais l in size. The orbits are normal. There is mild mucosal thickening in the paranasal sinuses. The mast oid air cells are normal. The vertebral arteries are codominant. There is no significant stenosis of basilar artery or the posterior cerebral arteries. There is no significant stenosis of the intracrani al internal carotid arteries or anterior or middle cerebral arteries. Anterior communicating artery i s normal. The posterior communicating arteries are normal. There is no aneurysm. NECK CTA: Calcified right hilar mediastinal lymph nodes are consistent with old granulomatous disease . There are coronary artery calcifications. There are no pathologically enlarged cervical lymph nodes . There is associated stenosis of the vertebral arteries. There is mild plaque in the proximal planning intern al carotid arteries. There is 0% stenosis of the proximal right internal carotid artery relative to n ormal distal artery lumen diameter (NASCET criteria). There is 0% stenosis of the proximal left inter nal carotid artery relative to normal distal artery lumen diameter. There is mild cervical spondylosi s. IMPRESSION: 1. Moderate nonspecific cerebral white matter disease, which likely represents chronic small vessel i schemic disease. 2. No aneurysm or significant intracranial arterial stenosis. 3. 0% stenosis of the proximal internal carotid arteries relative to normal distal artery lumen diame ters (NASCET criteria). Reviewed, dictated and finalized at location A. IMPRESSION: 1. Moderate nonspecific cerebral white matter disease, which likely represents chronic small vessel ischemic disease. 2. No aneurysm or significant intracranial arterial stenosis. 3. 0% stenosis of the proximal internal carotid arteries relative to normal dis milan artery lumen diameters (NASCET criteria).
--- NOTE | ~2023-10-18 | XR_ITS ---
EXAMINATION: XR barium swallow modified DATE: 10/24/2023 10:15 INDICATION: Impaired swallow. Choking. TECHNIQUE: The patient was given barium-containing material of multiple consistencies to swallow by t xenia speech pathologist while I performed fluoroscopy. Fluoroscopy exposure time was 4.9 minutes. The n umber of fluoroscopy images saved to the PACS was 1. Dose-area product was 4.1 Gy-cm^2. FINDINGS: There is reduced laryngeal elevation, reduced tongue base retraction, reduced pharyngeal squeeze, raina lecular residue, and laryngeal penetration. IMPRESSION: 1. Laryngeal penetration. 2. Please refer to the speech therapy report for recommendations. Reviewed, dictated and finalized at location A.
--- NOTE | 2023-10-18 08:26 | PC.NURSE ---
Scopolamine patch removed from behind L ear.
--- NOTE | 2023-10-18 08:27 | ECG_ITS ---
Test Date: 2023-10-18 08:26:12 Measurements Intervals [place] Rate: 83 P: 27 TN: 203 QRS: -31 QRSD: 98 T: 3 QT: 375 QTc: 442 Interpretive Statements SINUS RHYTHM POSSIBLE LEFT ATRIAL ENLARGEMENT [-0.1mV P-WAVE IN V1/V2] LEFT AXIS DEVIATION [QRS AXIS < -30] BASELINE ARTIFACT LIMITS INTERPRETATION No previous ECG available for comparison Electronically Signed On 10-18-2023 11:58:41 CDT by Paco Storm M.D.
[2023-10-18 08:38] LABS: Basophils Absolute Auto 0.1 K/mm3 (0.0-0.1); Basophils Percent Auto 0.6 % (0.2-1.2); Eosinophils Absolute Auto 0.2 K/mm3 (0-0.3); Eosinophils Percent Auto 2.5 % (0-4.4); Hematocrit 38.6 % (42.0-52.0); Hemoglobin 12.8 g/dL (14.0-18.0); Immature Granulocyte Absolute 0.04 K/mm3 (0.00-0.031); Immature Granulocyte Percent A 0.4 % (0-0.5); Lymphocytes Absolute Auto 1.11 K/mm3 (0.9-3.2); Lymphocytes Percent Auto 11.7 % (18.3-44.2); Mean Corpuscular HGB Conc 33.2 g/dl (32-36); Mean Corpuscular Hemoglobin 31.1 pg (26-34); Mean Corpuscular Volume 93.9 fl (80-100); Mean Platelet Volume 10.5 fl (7.4-10.4); Monocytes Absolute Auto 0.9 K/mm3 (0.1-0.6); Monocytes Percent Auto 9.5 % (2.6-8.5); Neutrophils Absolute Auto 7.2 K/mm3 (1.3-6.7); Neutrophils Percent Auto 75.3 % (45.5-73.1); Platelet Count Result 229 k/mm3 (150-375); Red Blood Count 4.11 M/mm3 (4.6-6.20); Red Cell Distribution Width 13.8 % (11.5-14.5); White Blood Count 9.5 K/mm3 (4.5-10.0)
--- NOTE | 2023-10-18 08:45 | ED.SYNCOPE ---
HPI - Syncope General Chief Complaint: Fall Stated Complaint: glf, AMS Time Seen by Provider: 10/18/23 08:29 Source: patient and EMS Mode of arrival: wheelchair Limitations: no limitations History of Present Illness HPI narrative: PATIENT LIVES ALONE, CAME FROM HOME BY AMBULANCE, SOMETIME LAST NIGHT FOUND HIMSELF ON THE FLOOR OF UNKNOWN REASON, DOES NOT KNOW WHAT HAPPENED, WAS NOT ABLE TO GET UP BECAUSE OF GENERAL WEAKNESS, LIFE ALERT, ON ARRIVAL TO THE ED HE DENIES ANY FEVER, CHILLS, NAUSEA, VOMITING, PAIN, FOCAL NEURO DEFICIT, CHEST PAIN OR SHORTNESS OF BREATH OR HEADACHE. Related Data Home Medications Medication Instructions Recorded Confirmed aspirin 81 mg chewable tablet 81 mg PO DAILY 04/27/23 08/22/23 donepezil 10 mg tablet (Aricept) 10 mg PO DAILY 04/27/23 08/22/23 ropinirole 1 mg tablet 1.5 mg PO QID 04/27/23 08/22/23 metoprolol tartrate 25 mg tablet 12.5 mg PO BID 06/15/23 08/22/23 rosuvastatin 10 mg tablet 10 mg PO HS 07/29/23 08/22/23 Allergies Allergy/AdvReac Type Severity Reaction Status Date / Time No Known Allergies Allergy Verified 07/28/23 16:38 Review of Systems Review of Systems: All systems reviewed & are unremarkable except as noted in HPI and below PMFSH Past Medical History Medical History Benign prostatic hyperplasia Chronic anemia Chronic kidney disease, stage 3 Deep venous thrombosis Gastroesophageal reflux disease Hyperlipidemia Hypertension Overweight (BMI 25.0-29.9) Parkinsons disease Prostate cancer Protein calorie malnutrition Small bowel obstruction with strangulation or infarction Surgical History Surgical History History of colonoscopy with polypectomy History of transurethral resection of prostate PEG (percutaneous endoscopic gastrostomy) status Family History Family History Father Family history of cardiovascular disease Family history of elevated blood lipids Diabetes mellitus Suicide Mother Family history of malignant neoplasm of breast in first degree relative Other Hypertension Social History Social History Social History: Surrogate medical decision maker: Jc Goins, son. Code status: Smoking packs per day: 3 Smoking cigarettes per day: 60.0 Years smoked: 11 Smoking pack-years: 33.00 Smoking status: Former smoker Second hand tobacco smoke exposure: No Alcohol intake: current Drinks per week: 1 Alcohol use details: Rare alcohol use. Substance use: never Substance use type: does not use Do You Feel Safe in your Home?: Yes Lack of Transportation: No Lack of Food: Never True Current Housing: I Have Housing Concerned About Future Housing: No Difficulty Paying Gas/Electric Bills: No Difficulty Paying for Meds: No Currently Unemployed: No Education: Associate Degree Difficulty w/ Childcare or Family Care: No Living arrangements: alone Additional living arrangements comments: son visits often; neighbor Torrey checks on him; patient has life alert Additional occupation/education comments: Worked in the [employer] and for the [employer] Spiritual care concerns: No Exam Narrative: GENERAL APPEARANCE: WELL-DEVELOPED, WELL-NOURISHED, GENERALLY WEAK SKIN: NORMAL COLOR HEAD: NORMOCEPHALIC, NONTRAUMATIC EYES: CLEAR CONJUNCTIVA ENT: OROPHARYNX NORMAL, EARS NORMAL, NOSE NORMAL NECK: SUPPLE, NONTENDER CHEST AND RESPIRATORY: AIRWAY PATENT, NO RESPIRATORY DISTRESS, NO ACCESSORY MUSCLE USE HEART: REGULAR RATE/RHYTHM ABDOMEN: SOFT, NONTENDER, NO ORGANOMEGALY, QUIET BOWEL SOUNDS VASCULAR: NORMAL PERIPHERAL PULSES, NORMAL CAPILLARY REFILL. 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
[2023-10-18 08:56] LABS: Alanine Aminotransferase 36 U/L (6-50); Albumin Level 4.5 g/dL (3.5-5.1); Alkaline Phosphatase 71 U/L (38-126); Anion Gap 9 mmol/L (4-12); Aspartate Amino Transferase 55 U/L (17-59); Blood Urea Nitrogen 18 mg/dL (9-20); Calcium 9.2 mg/dL (8.4-10.2); Carbon Dioxide 29 mmol/L (22-30); Chloride 98 mmol/L (98-107); Estimated CRCL calculation 46 ml/min; Estimated Glomerular Filt Rate > 60; Glucose 143 mg/dL (65-110); Potassium 3.7 mmol/L (3.4-5.0); Sodium 136 mmol/L (137-145)
--- NOTE | 2023-10-18 08:56 | PC.NURSE ---
Pt c/o nausea. Had one episode of emesis. Md made aware. Dr. Olga LABOY for 4mg zofran IVP stat.
[2023-10-18 08:58] LABS: INR 0.9; Prothrombin Time 13.1 Seconds (11.1-14.7)
--- NOTE | 2023-10-18 08:58 | PC.NURSE ---
EDP Dr. Olga LABOY for 1000 mL NS bolus IV stat.
[2023-10-18] MEDS: SODIUM CHLORIDE 0.9% IV 1,000 ML 999 ML IV CONT ×2 (09:01→21:47)
[2023-10-18] MEDS: ONDANSETRON INJ 4 MG/2 ML VIAL IV PUSH (09:01)
[2023-10-18 09:16] LABS: Add Urine Microscopic? YES; Appearance Urine Clear (Clear); Bacteria Urine None Seen /hpf; Bilirubin Urine Negative (Negative); Blood Urine Trace (Negative); Color Urine Yellow (Yellow); Glucose Urine UA Negative (Negative); Ketones Urine Negative (Negative); Leukocyte Esterase Ur Negative LEU/UL (Negative); Nitrate Urine Negative (Negative); Non Pathogenic Casts 0-2; Protein Urine 1+ mg/dL (Negative); RBC Urine 0-2 /hpf (0-2); Specific Grav Ur 1.011 (1.001-1.035); Squamous Epithelial Cell Urine None Seen /hpf (Few); Urobilinogen Urine 0.2 mg/dL (<2.0); WBC Urine 0-5 /hpf (0-3); pH Urine 7.5 (5.0-9.0)
[2023-10-18 09:32] LABS: Troponin I < 0.012 ng/mL (0.000-0.034)
[2023-10-18 09:33] LABS: Creatine Kinase 721 U/L (55-170); Magnesium 1.9 mg/dL (1.6-2.3); NT Pro B Type Natriuretic Pept 268 pg/mL (19.9-100)
[2023-10-18] MEDS: LABETALOL HCL INJ 100 MG/20 ML VIAL 20 MG IV PUSH (10:47)
[2023-10-18] MEDS: SODIUM CHLORIDE 0.9% IV 1,000 ML 125 ML IV CONT (12:19)
--- NOTE | 2023-10-18 13:07 | PC.NURSE ---
Patient arrived from ED via stretcher at 1225. Patient alert and oriented x4 but drowsy. Patient cleaned from incontence of urine and bowel. Patient offerred lunch tray , but declined at this time. Patient resting comfortably.
--- NOTE | 2023-10-18 13:37 | PC.NURSE ---
PATIENT FLUIDS ON HOLD UNTIL MD ASSESSMENT VIA TELEPHONE ORDER. PATIENT HYPERTENSIVE, ELEVATED BNP, AND 3+ PITTING EDEMA TO BILATERAL LE.
--- NOTE | 2023-10-18 15:57 | PM.IMHP ---
H&P: HPI History of Present Illness Date/Time: 10/18/23 15:57 Chief Complaint: Fall Narrative: This is a 83-year-old male who came from home by ambulance. Sometime last night a found himself on the floor. He does not know what happened and how he got there. However he was not able to get up and was feeling generally weak. He had a Life Alert and it breast to call the EMS. He denied any fever chills nausea vomiting abdominal pain chest pain or shortness of breath. He did not have any focal neurological deficit. Upon arrival to the ED he was hypertensive with blood pressure of 218/124. He was afebrile. Further workup was done. Laboratory evaluation showed WBC of 9.5 hemoglobin of 12.8 electrolytes were normal renal function was at baseline with creatinine of 1 PT INR 0.9 magnesium 1.9 total creatinine kinase was 721 troponin was negative with less than 0.012. BNP mildly elevated at 268. Urinalysis was negative for UTI. Head CT was performed which showed stable moderate nonspecific cerebral white matter disease which likely represents chronic small vessel ischemic disease. Chest x-ray showed no acute cardiopulmonary disease. EKG showed normal sinus rhythm with left axis deviation QTC of 442. Nonspecific ST-T changes were noted. He was noted to be generalized weakness and hence getting admitted for further treatment. He does have history of frequent falls and Parkinson's disease. Review of Systems Review of Systems: - CONSTITUTIONAL: Denies weight loss, fever and chills. - HEENT: Denies changes in vision and hearing - RESPIRATORY: Denies SOB and cough. - CV: Denies palpitations and CP. - GI: Denies abdominal pain, nausea, vomiting and diarrhea. - : Denies dysuria and urinary frequency. - MSK: Denies myalgia and joint pain. - SKIN: Denies rash and pruritus. - NEUROLOGICAL: Denies headache and syncope. Reports Fall. Generalized weakness reported - PSYCHIATRIC: Denies recent changes in mood. Denies anxiety and depression. [facility] Past Medical History Medical History Benign prostatic hyperplasia Chronic anemia Chronic kidney disease, stage 3 Deep venous thrombosis Gastroesophageal reflux disease Hyperlipidemia Hypertension Overweight (BMI 25.0-29.9) Parkinsons disease Prostate cancer Protein calorie malnutrition Small bowel obstruction with strangulation or infarction Surgical History Surgical History History of colonoscopy with polypectomy History of transurethral resection of prostate PEG (percutaneous endoscopic gastrostomy) status Family History Family History Father Family history of cardiovascular disease Family history of elevated blood lipids Diabetes mellitus Suicide Mother Family history of malignant neoplasm of breast in first degree relative Other Hypertension Social History Social History Social History: Surrogate medical decision maker: Jc Goins, son. Code status: Smoking packs per day: 3 Smoking cigarettes per day: 60.0 Years smoked: 11 Smoking pack-years: 33.00 Smoking status: Former smoker Second hand tobacco smoke exposure: No Alcohol intake: current Drinks per week: 7 Alcohol use details: Rare alcohol use. Substance use: never Substance use type: does not use Do You Feel Safe in your Home?: Yes Lack of Transportation: No Lack of Food: Never True Current Housing: I Have Housing Concerned About Future Housing: No Difficulty Paying Gas/Electric Bills: No Difficulty Paying for Meds: No Currently Unemployed: No Education: High School Diploma/GED Difficulty w/ Childcare or Family Care: No Living arrangements: alone Additional living arrangements comments: son visits often; neighbor Torrey checks on him; patient has
[2023-10-18] MEDS: SODIUM CHLORIDE 0.9% IV 1,000 ML 60 ML IV CONT (16:25)
--- NOTE | 2023-10-18 16:35 | PC.NURSE ---
PATIENT'S BLOOD PRESSURE WENT FROM 165/87 TO 126/65 AND PATIENT MORE LETHARGIC AND CONFUSED FROM LAST ASSESSMENT. DR TRUJILLO AT BEDSIDE WITH RN. FLUIDS ORDERED FOR 60 ML/HR NS. MD AWARE OF PATIENT'S ELEVATED BNP AND BILAT LE SWELLING. CONTINUE TO MONITOR FOR FLUID OVERLOAD AND MENTAL STATUS
[2023-10-18] MEDS: CARBIDOPA/LEVODOPA 25/100 MG TABLET 3 TABLET PO ×2 (17:12→20:29)
[2023-10-18] MEDS: rOPINIRole HCL 0.5 MG TABLET 1.5 MG PO ×2 (17:12→20:29)
[2023-10-18] MEDS: TAMSULOSIN HCL 0.4 MG CAPSULE PO (20:29)
[2023-10-18] MEDS: ROSUVASTATIN 10 MG TABLET PO (20:29)
[2023-10-19] VITALS (13 sets, daily range): BP systolic 117–166; BP diastolic 69–78; PULSE 59–78; RESP 14–20; TEMP 36.1–37.1; O2SAT 92–100
[2023-10-19 04:19] LABS: Basophils Percent Auto 0.6 % (0.2-1.2); Eosinophils Absolute Auto 0.2 K/mm3 (0-0.3); Eosinophils Percent Auto 2.5 % (0-4.4); Hemoglobin 10.5 g/dL (14.0-18.0); Immature Granulocyte Absolute 0.03 K/mm3 (0.00-0.031); Immature Granulocyte Percent A 0.4 % (0-0.5); Lymphocytes Absolute Auto 1.02 K/mm3 (0.9-3.2); Lymphocytes Percent Auto 14.8 % (18.3-44.2); Mean Corpuscular HGB Conc 32.8 g/dl (32-36); Mean Corpuscular Hemoglobin 31.3 pg (26-34); Mean Corpuscular Volume 95.5 fl (80-100); Mean Platelet Volume 10.5 fl (7.4-10.4); Monocytes Absolute Auto 0.8 K/mm3 (0.1-0.6); Monocytes Percent Auto 11.6 % (2.6-8.5); Neutrophils Absolute Auto 4.8 K/mm3 (1.3-6.7); Neutrophils Percent Auto 70.1 % (45.5-73.1); Platelet Count Result 171 k/mm3 (150-375); Red Blood Count 3.35 M/mm3 (4.6-6.20); Red Cell Distribution Width 14.1 % (11.5-14.5); White Blood Count 6.9 K/mm3 (4.5-10.0)
[2023-10-19 04:30] LABS: Alanine Aminotransferase 8 U/L (6-50); Albumin Level 3.4 g/dL (3.5-5.1); Alkaline Phosphatase 51 U/L (38-126); Anion Gap 6 mmol/L (4-12); Aspartate Amino Transferase 44 U/L (17-59); Bilirubin,Total 0.8 mg/dL (0.2-1.3); Blood Urea Nitrogen 17 mg/dL (9-20); Calcium 8.8 mg/dL (8.4-10.2); Carbon Dioxide 26 mmol/L (22-30); Chloride 104 mmol/L (98-107); Creatine Kinase 775 U/L (55-170); Estimated CRCL calculation 46 ml/min; Estimated Glomerular Filt Rate > 60; Glucose 99 mg/dL (65-110); Magnesium 1.8 mg/dL (1.6-2.3); Potassium 3.6 mmol/L (3.4-5.0); Sodium 136 mmol/L (137-145)
--- NOTE | 2023-10-19 08:40 | PM.IMPN ---
Progress Note: A&P Assessment and Plan (1) Syncope and collapse: Code(s): R55 - Syncope and collapse Status: Acute (2) Rhabdomyolysis: Code(s): M62.82 - Rhabdomyolysis Status: Acute (3) Chronic kidney disease, stage 3: Code(s): N18.30 - Chronic kidney disease, stage 3 unspecified Status: Chronic (4) Hypertension: Qualifiers: Hypertension type: primary hypertension Qualified Code(s): I10 - Essential (primary) hypertension Code(s): I10 - Essential (primary) hypertension Status: Chronic (5) Parkinsons disease: Code(s): G20 - Parkinson's disease Status: Chronic (6) Neurocognitive disorder: Code(s): R41.9 - Unspecified symptoms and signs involving cognitive functions and awareness Status: Acute (7) Frequent falls: Code(s): R29.6 - Repeated falls Status: Acute (8) Generalized weakness: Code(s): R53.1 - Weakness Status: Acute Plan H&P and plan via Harjit Michele MD on 10/18/23 This is a 83-year-old male who came from home by ambulance. Sometime last night a found himself on the floor. He does not know what happened and how he got there. However he was not able to get up and was feeling generally weak. He had a Life Alert and it pressed it to call the EMS. He denied any fever chills nausea vomiting abdominal pain chest pain or shortness of breath. He did not have any focal neurological deficit. Upon arrival to the ED he was hypertensive with blood pressure of 218/124. He was afebrile. Further workup was done. Laboratory evaluation showed WBC of 9.5 hemoglobin of 12.8 electrolytes were normal renal function was at baseline with creatinine of 1 PT INR 0.9 magnesium 1.9 total creatinine kinase was 721; troponin was negative with troponin less than 0.012. BNP mildly elevated at 268. Urinalysis was negative for UTI. Head CT was performed which showed stable moderate nonspecific cerebral white matter disease which likely represents chronic small vessel ischemic disease. Chest x-ray showed no acute cardiopulmonary disease. EKG showed normal sinus rhythm with left axis deviation QTC of 442. Nonspecific ST-T changes were noted. He was noted to be generalized weakness and hence getting admitted for further treatment. Chest x-ray negative. He does have history of frequent falls and Parkinson's disease. COVID flu and RSV swab was negative Will order PT OT to further evaluate. 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 Mild rhabdomyolysis monitor CK level and gentle IV fluid Hypertension resume home medication adjust blood pressure medication as needed. Parkinson's disease continue carbidopa levodopa History of dementia on Aricept DVT prophylaxis place on Lovenox Code status do not resuscitate. ----- 10/19/23: Although the patient is hypertensive on arrival, he was hypotensive on his 1st night which responded to fluid resuscitation. His morning labs on 10/19/2023 demonstrate dilutional effect. His creatinine kinase is consistently mildly elevated. He was likely volume down. Increase his normal saline from 60-100 cc/hour. Check lactic acidosis, BNP, creatinine kinase in the morning. Continue metoprolol 12.5 mg p.o. b.i.d., monitor blood pressures throughout the day. No events on telemetry. 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 The patient lives alone and he has had frequent falls. Family reports he is becoming progressively more confused and even though the visit they are unable to take care of him now. They would like him placed on long-term placement which is appropriate at this stage. PT/OT/care coordination evaluations. ----- DNR. Lovenox. Stable, transfer to medical floor. Subjective Date/time seen: 10/19/23 08:40 Interval history: Overnight his blood pressures decreased, he was given bolus of isotonic fluid resuscitation. His blood pressures improved. This morning
[2023-10-19] MEDS: CARBIDOPA/LEVODOPA 25/100 MG TABLET 3 TABLET PO ×3 (08:45→20:24)
[2023-10-19] MEDS: METOPROLOL TARTRATE 12.5 MG TABLET PO ×2 (08:45→20:24)
[2023-10-19] MEDS: ENOXAPARIN 40 MG/0.4 ML SYRINGE SUB-Q (08:45)
[2023-10-19] MEDS: DONEPEZIL HCL 10 MG TABLET PO (08:45)
[2023-10-19] MEDS: rOPINIRole HCL 0.5 MG TABLET 1.5 MG PO ×3 (08:45→20:24)
[2023-10-19] MEDS: SODIUM CHLORIDE 0.9% IV 1,000 ML 60 ML IV CONT ×2 (08:46→20:31)
--- NOTE | 2023-10-19 18:27 | PC.NURSE ---
This patient, Abdulaziz Goins, was received from [[id number] ] on 10/19/23 at 1805. Patient/family oriented to unit policies and routines
[2023-10-19] MEDS: TAMSULOSIN HCL 0.4 MG CAPSULE PO (20:23)
[2023-10-19] MEDS: ROSUVASTATIN 10 MG TABLET PO (20:24)
[2023-10-20] VITALS: BP 140/79; PULSE 58; RESP 20; TEMP 35.7; O2SAT 96
[2023-10-20 06:36] VITALS: BP 179/87; PULSE 62; RESP 18; TEMP 35.7; O2SAT 98
[2023-10-20 06:45] LABS: Hematocrit 34.4 % (42.0-52.0); Hemoglobin 11.1 g/dL (14.0-18.0); Mean Corpuscular HGB Conc 32.3 g/dl (32-36); Mean Corpuscular Hemoglobin 30.9 pg (26-34); Mean Corpuscular Volume 95.8 fl (80-100); Mean Platelet Volume 10.8 fl (7.4-10.4); Platelet Count Result 181 k/mm3 (150-375); Red Blood Count 3.59 M/mm3 (4.6-6.20); Red Cell Distribution Width 13.9 % (11.5-14.5); White Blood Count 6.5 K/mm3 (4.5-10.0)
[2023-10-20 06:58] LABS: Lactic Acid Reflex 0.8 mmol/L (0.7-2.0)
[2023-10-20 07:00] LABS: Alanine Aminotransferase 12 U/L (6-50); Albumin Level 3.9 g/dL (3.5-5.1); Anion Gap 7 mmol/L (4-12); Aspartate Amino Transferase 51 U/L (17-59); Bilirubin,Total 0.8 mg/dL (0.2-1.3); Blood Urea Nitrogen 18 mg/dL (9-20); Calcium 8.9 mg/dL (8.4-10.2); Carbon Dioxide 28 mmol/L (22-30); Chloride 101 mmol/L (98-107); Creatine Kinase 675 U/L (55-170); Estimated CRCL calculation 42 ml/min; Estimated Glomerular Filt Rate > 60; Glucose 92 mg/dL (65-110); Magnesium 1.9 mg/dL (1.6-2.3); Potassium 3.9 mmol/L (3.4-5.0); Sodium 136 mmol/L (137-145)
[2023-10-20 07:01] LABS: Alkaline Phosphatase 58 U/L (38-126)
[2023-10-20 07:55] VITALS: BP 178/94; PULSE 68; RESP 18; TEMP 36.3; O2SAT 97
[2023-10-20 08:33] VITALS: PULSE 74
[2023-10-20] MEDS: METOPROLOL TARTRATE 12.5 MG TABLET PO ×2 (08:33→21:20)
[2023-10-20] MEDS: CARBIDOPA/LEVODOPA 25/100 MG TABLET 3 TABLET PO ×4 (08:34→21:21)
[2023-10-20] MEDS: DONEPEZIL HCL 10 MG TABLET PO (08:35)
[2023-10-20] MEDS: rOPINIRole HCL 0.5 MG TABLET 1.5 MG PO ×4 (08:35→21:21)
[2023-10-20] MEDS: ENOXAPARIN 40 MG/0.4 ML SYRINGE SUB-Q (09:44)
[2023-10-20] MEDS: SODIUM CHLORIDE 0.9% IV 1,000 ML 60 ML IV CONT (09:44)
--- NOTE | 2023-10-20 11:54 | PM.IMPN ---
Progress Note: A&P Assessment and Plan (1) Syncope and collapse: Code(s): R55 - Syncope and collapse Status: Acute (2) Rhabdomyolysis: Code(s): M62.82 - Rhabdomyolysis Status: Acute (3) Chronic kidney disease, stage 3: Code(s): N18.30 - Chronic kidney disease, stage 3 unspecified Status: Chronic (4) Hypertension: Qualifiers: Hypertension type: primary hypertension Qualified Code(s): I10 - Essential (primary) hypertension Code(s): I10 - Essential (primary) hypertension Status: Chronic (5) Parkinsons disease: Code(s): G20 - Parkinson's disease Status: Chronic (6) Neurocognitive disorder: Code(s): R41.9 - Unspecified symptoms and signs involving cognitive functions and awareness Status: Acute (7) Frequent falls: Code(s): R29.6 - Repeated falls Status: Acute (8) Generalized weakness: Code(s): R53.1 - Weakness Status: Acute Plan H&P and plan via Harjit Michele MD on 10/18/23 This is a 83-year-old male who came from home by ambulance. Sometime last night a found himself on the floor. He does not know what happened and how he got there. However he was not able to get up and was feeling generally weak. He had a Life Alert and it pressed it to call the EMS. He denied any fever chills nausea vomiting abdominal pain chest pain or shortness of breath. He did not have any focal neurological deficit. Upon arrival to the ED he was hypertensive with blood pressure of 218/124. He was afebrile. Further workup was done. Laboratory evaluation showed WBC of 9.5 hemoglobin of 12.8 electrolytes were normal renal function was at baseline with creatinine of 1 PT INR 0.9 magnesium 1.9 total creatinine kinase was 721; troponin was negative with troponin less than 0.012. BNP mildly elevated at 268. Urinalysis was negative for UTI. Head CT was performed which showed stable moderate nonspecific cerebral white matter disease which likely represents chronic small vessel ischemic disease. Chest x-ray showed no acute cardiopulmonary disease. EKG showed normal sinus rhythm with left axis deviation QTC of 442. Nonspecific ST-T changes were noted. He was noted to be generalized weakness and hence getting admitted for further treatment. Chest x-ray negative. He does have history of frequent falls and Parkinson's disease. COVID flu and RSV swab was negative Will order PT OT to further evaluate. 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 Mild rhabdomyolysis monitor CK level and gentle IV fluid Hypertension resume home medication adjust blood pressure medication as needed. Parkinson's disease continue carbidopa levodopa History of dementia on Aricept DVT prophylaxis place on Lovenox Code status do not resuscitate. ----- 10/19/23: Although the patient is hypertensive on arrival, he was hypotensive on his 1st night which responded to fluid resuscitation. His morning labs on 10/19/2023 demonstrate dilutional effect. His creatinine kinase is consistently mildly elevated. He was likely volume down. Increase his normal saline from 60-100 cc/hour. Check lactic acidosis, BNP, creatinine kinase in the morning. Continue metoprolol 12.5 mg p.o. b.i.d., monitor blood pressures throughout the day. No events on telemetry. 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 The patient lives alone and he has had frequent falls. Family reports he is becoming progressively more confused and even though the visit they are unable to take care of him now. They would like him placed on long-term placement which is appropriate at this stage. PT/OT/care coordination evaluations. 10/20/2023: Neurocognitive disorder/Parkinson's with behavioral disturbance. He is cantankerous with staff. Reported by nurse they tried multiple times to calm him. Will give hydroxyzine 25 mg p.o. x1. Continue good sleep-wake cycle. Care coordinators working on
[2023-10-20] MEDS: hydrOXYzine HCL 25 MG TABLET PO ×2 (12:10→16:40)
[2023-10-20 16:00] VITALS: BP 128/79; PULSE 74; RESP 18; TEMP 36.4; O2SAT 97
[2023-10-20] MEDS: TAMSULOSIN HCL 0.4 MG CAPSULE PO (21:21)
[2023-10-20] MEDS: MELATONIN 3 MG TABLET PO (21:21)
[2023-10-20 21:27] VITALS: BP 150/100; PULSE 81; RESP 18; TEMP 36.8; O2SAT 98
[2023-10-21] VITALS (7 sets, daily range): BP systolic 76–145; BP diastolic 52–75; PULSE 65–91; RESP 16–18; TEMP 36.3–36.6; O2SAT 96–99
--- NOTE | 2023-10-21 04:48 | PM.EVENT ---
Event Note Event Note Event Note: The patient was getting up out of bed and is taking multiple staff members to keep him in bed. He was argumentative and fighting. The patient has had a dose of hydroxyzine earlier in the evening without improvement in symptoms. Security had been called around midnight as well for 0 pursed of behavior. The patient is adamant at the time of my evaluation that he is in his own home and that we need to just going to talk to his neighbor and they will give us all the details that we require. He was insistent that they go check his mail so they brought him in envelope with papers in attempt to distract the patient area the patient was having difficulty putting the mail into the envelope and was straight it. He handed that he is in stated that he did knee min think it was from his mailbox anywhere. Despite multiple attempts at redirection the patient you to be upset. Patient had emptying his bladder in pure wick but nursing staff felt this may be irritating the patient. The pure wick was removed. The patient was able to urinate in a urinal without difficulty. While I was at bedside patient's abdomen seems somewhat distended so we checked a bladder scan which demonstrated less than 120 mL. In the process of the bladder scan and discussion of the next step in care including possible sedation the patient fell asleep and was no longer argumentative. He did not Wanna give sedating medications so late in the shift at approximately 04:30. At this time will hold off on giving the patient any chemical restraints and hopefully the patient will sleep for a few hours. If agitation recurs will re-evaluate. I did discuss the risks and benefits of antipsychotics again since with pharmacist. It receive atypical antipsychotics instead of typical antipsychotics if they are needed. A Zyprexa Geodon which be better options than Haldol or Seroquel. If repeat episodes of agitation occur I will likely after give the patient Zyprexa. We have GI harsha tablets available the no Geodon injectables. The risk ofl antipsychotics can cause worsening Parkinson's symptoms, dysphagia or increased falls in addition to usual QT prolongation that we would see with other individuals. 32 minute spent critical care activities. Due to a high probability of clinically significant, life threatening deterioration, the patient required my highest level of preparedness to intervene emergently and I personally spent this critical care time directly and personally managing the patient. This critical care time included obtaining a history; examining the patient; pulse oximetry; ordering and review of studies; arranging urgent treatment with development of a management plan; evaluation of patient's response to treatment; frequent reassessment; and discussions with other providers. It was exclusive of separately billable procedures and treating other patients and teaching time. Please see Assessment and Plan section and the rest of the note for further information on patient assessment and treatment.
[2023-10-21 06:23] LABS: Basophils Absolute Auto 0.1 K/mm3 (0.0-0.1); Basophils Percent Auto 0.9 % (0.2-1.2); Eosinophils Absolute Auto 0.2 K/mm3 (0-0.3); Eosinophils Percent Auto 3.5 % (0-4.4); Hematocrit 34.8 % (42.0-52.0); Hemoglobin 11.2 g/dL (14.0-18.0); Immature Granulocyte Absolute 0.02 K/mm3 (0.00-0.031); Immature Granulocyte Percent A 0.3 % (0-0.5); Lymphocytes Absolute Auto 1.19 K/mm3 (0.9-3.2); Lymphocytes Percent Auto 18.8 % (18.3-44.2); Mean Corpuscular HGB Conc 32.2 g/dl (32-36); Mean Corpuscular Hemoglobin 30.5 pg (26-34); Mean Corpuscular Volume 94.8 fl (80-100); Mean Platelet Volume 10.9 fl (7.4-10.4); Monocytes Absolute Auto 0.8 K/mm3 (0.1-0.6); Neutrophils Absolute Auto 4.1 K/mm3 (1.3-6.7); Neutrophils Percent Auto 64.5 % (45.5-73.1); Platelet Count Result 207 k/mm3 (150-375); Red Blood Count 3.67 M/mm3 (4.6-6.20); Red Cell Distribution Width 13.7 % (11.5-14.5); White Blood Count 6.3 K/mm3 (4.5-10.0)
[2023-10-21 06:32] LABS: Alanine Aminotransferase 12 U/L (6-50); Alkaline Phosphatase 56 U/L (38-126); Anion Gap 8 mmol/L (4-12); Aspartate Amino Transferase 50 U/L (17-59); Bilirubin,Total 0.5 mg/dL (0.2-1.3); Blood Urea Nitrogen 16 mg/dL (9-20); Carbon Dioxide 28 mmol/L (22-30); Chloride 98 mmol/L (98-107); Creatine Kinase 608 U/L (55-170); Estimated CRCL calculation 51 ml/min; Estimated Glomerular Filt Rate > 60; Glucose 99 mg/dL (65-110); Magnesium 1.8 mg/dL (1.6-2.3); Potassium 3.6 mmol/L (3.4-5.0); Sodium 134 mmol/L (137-145)
[2023-10-21 06:50] LABS: Procalcitonin 0.1 ng/mL
[2023-10-21] MEDS: CARBIDOPA/LEVODOPA 25/100 MG TABLET 3 TABLET PO (09:01)
[2023-10-21] MEDS: METOPROLOL TARTRATE 12.5 MG TABLET PO (09:02)
[2023-10-21] MEDS: rOPINIRole HCL 0.5 MG TABLET 1.5 MG PO (09:02)
[2023-10-21] MEDS: SODIUM CHLORIDE 0.9% IV 1,000 ML 999 ML IV CONT (09:45)
[2023-10-21 09:56] LABS: Glucose Point of Care 112 mg/dl (65-105)
--- NOTE | 2023-10-21 15:30 | PM.IMPN ---
Progress Note: A&P Assessment and Plan (1) Neurocognitive disorder: Code(s): R41.9 - Unspecified symptoms and signs involving cognitive functions and awareness Status: Acute (2) Syncope and collapse: Code(s): R55 - Syncope and collapse Status: Acute (3) Rhabdomyolysis: Code(s): M62.82 - Rhabdomyolysis Status: Acute (4) Rhabdomyolysis: Qualifiers: Encounter type: initial encounter Rhabdomyolysis type: traumatic Qualified Code(s): T79.6XXA - Traumatic ischemia of muscle, initial encounter Code(s): M62.82 - Rhabdomyolysis Status: Acute (5) Frequent falls: Code(s): R29.6 - Repeated falls Status: Acute (6) Generalized weakness: Code(s): R53.1 - Weakness Status: Acute (7) Altered mental status: Qualifiers: Altered mental status type: somnolence Qualified Code(s): R40.0 - Somnolence Code(s): R41.82 - Altered mental status, unspecified Status: Acute Plan At baseline, this is a pleasant 83-year-old male with past medical history Parkinson's, neurocognitive disorder/dementia, hyperlipidemia, BPH. Patient lives at home alone. Sometime on the night prior to admission on 10/17/2023 he found himself on the floor and does not know how he got there. He has a Life Alert and pressed it to call EMS. Patient had no symptoms to report otherwise, did not have focal neurological deficits. Upon arrival to ED he was hypertensive with a blood pressure of 218/124. Creatinine kinase was 721. CT head performed showed stable moderate nonspecific cerebral white matter disease. Chest x-ray without acute disease. UA not indicative of UTI. EKG with a QTC of 442. No acute ischemia. Admitted on 10/18/2023. ----- #Parkinson's/neurocognitive disorder/dementia/frequent falls at home/weakness -patient lives alone. Son Jc reports the patient has become increasingly confused over months and is unsafe at home. Agree with this. Care coordination planning for placement/rehab. -dietary supplements -Attempt to minimize nocturnal disturbances (avoid unnecessary lab draws, vital signs, nighttime medications). Promote regular sleep-wake cycle. Provide orienting stimuli including clock, calendar, lights on during the day and off at nighttime, and minimal staff changes. Minimize the use of tubes and drains. Address sensory deficits including vision and hearing. Ensure no bowel or bladder retention and call with concerns. Mobilize as much possible, ideally out of bed for meals if able. -First line treatment to help control behavior disturbances is a sitter (family or staff). Second line treatment includes physical and/or chemical restraints but these must be used with good judgement. Narcotics and benzodiazepines are not indicated. Antipsychotics to be used p.r.n. at the discretion of the mental health practitioner physician at the time of behavioral disturbance. #Fall at home #rhabdomyolysis -creatinine kinase continues to improve. -PTOT #psychosis -in the afternoon of 10/20/2023 the patient became verbally aggressive with the staff and eventually posed a harm to himself and staff. It took multiple staff members to get him into bed. He continued to be confused throughout the night. -on 10/20 in the morning the patient was sitting in a chair and suddenly became unresponsive. His blood pressure was low. CT head did not demonstrate acute abnormality. CTA neck had 0% stenosis in the proximal internal carotid arteries. No aneurysm or significant intracranial artery stenosis. Demonstrated again nonspecific cerebral white matter disease. An MRI brain without contrast performed shortly after demonstrated brain atrophy with mild deep white matter ischemic changes. -a 1 L normal saline bolus was given with good response in blood pressure. The patient had more color and was more responsive. Suspect hypovolemia due to poor oral intake. -on 10/21/2023 explained these findings to the arianna
[2023-10-21] MEDS: rOPINIRole HCL 0.5 MG TABLET PO (17:17)
[2023-10-21] MEDS: CARBIDOPA/LEVODOPA 12.5/50 MG TABLET 1 TABLET PO (17:17)
--- NOTE | 2023-10-22 05:00 | ECG_ITS ---
Test Date: 2023-10-22 07:49:58 Measurements Intervals [place] Rate: 71 P: 27 [place]: 165 QRS: -13 QRSD: 99 T: 29 QT: 417 QTc: 454 Interpretive Statements SINUS RHYTHM WITH SINUS ARRHYTHMIA BORDERLINE LEFTWARD AXIS OTHERWISE UNREMARKABLE ECG Compared to ECG 10/18/2023 08:26:12 NO SIGNIFICANT CHANGE, LESS BASELINE ARTIFACT ON THIS TRACING Electronically Signed On 10-22-2023 09:41:14 CDT by Juancarlos Singleton M.D.
[2023-10-22 06:00] VITALS: BP 157/84; PULSE 84; RESP 20; TEMP 36.8; O2SAT 95
[2023-10-22 08:23] VITALS: PULSE 76
[2023-10-22] MEDS: METOPROLOL TARTRATE 12.5 MG TABLET PO ×2 (08:23→20:32)
[2023-10-22] MEDS: CARBIDOPA/LEVODOPA 12.5/50 MG TABLET 1 TABLET PO ×4 (08:31→20:32)
[2023-10-22] MEDS: ENOXAPARIN 40 MG/0.4 ML SYRINGE SUB-Q (08:31)
[2023-10-22] MEDS: rOPINIRole HCL 0.5 MG TABLET PO ×4 (08:31→20:32)
--- NOTE | 2023-10-22 10:09 | P.PNIM_ITS ---
Progress Note: A&P Assessment and Plan (1) Neurocognitive disorder: Code(s): R41.9 - Unspecified symptoms and signs involving cognitive functions and awareness Status: Acute (2) Syncope and collapse: Code(s): R55 - Syncope and collapse Status: Acute (3) Rhabdomyolysis: Code(s): M62.82 - Rhabdomyolysis Status: Acute (4) Rhabdomyolysis: Qualifiers: Encounter type: initial encounter Rhabdomyolysis type: traumatic Qualified Code(s): T79.6XXA - Traumatic ischemia of muscle, initial encounter Code(s): M62.82 - Rhabdomyolysis Status: Acute (5) Frequent falls: Code(s): R29.6 - Repeated falls Status: Acute (6) Generalized weakness: Code(s): R53.1 - Weakness Status: Acute (7) Altered mental status: Qualifiers: Altered mental status type: somnolence Qualified Code(s): R40.0 - Somnolence Code(s): R41.82 - Altered mental status, unspecified Status: Acute Plan At baseline, this is a pleasant 83-year-old male with past medical history Parkinson's, neurocognitive disorder/dementia, hyperlipidemia, BPH. Patient lives at home alone. Sometime on the night prior to admission on 10/17/2023 he found himself on the floor and does not know how he got there. He has a Life Alert and pressed it to call EMS. Patient had no symptoms to report otherwise, did not have focal neurological deficits. Upon arrival to ED he was hypertensive with a blood pressure of 218/124. Creatinine kinase was 721. CT head performed showed stable moderate nonspecific cerebral white matter disease. Chest x-ray without acute disease. UA not indicative of UTI. EKG with a QTC of 442. No acute ischemia. Admitted on 10/18/2023. ----- #Parkinson's/neurocognitive disorder/dementia/frequent falls at home/weakness -patient lives alone. Son Jc reports the patient has become increasingly confused over months and is unsafe at home. Agree with this. Care coordination planning for placement/rehab, anticipate Tuesday. -dietary supplements -Attempt to minimize nocturnal disturbances (avoid unnecessary lab draws, vital signs, nighttime medications). Promote regular sleep-wake cycle. Provide orienting stimuli including clock, calendar, lights on during the day and off at nighttime, and minimal staff changes. Minimize the use of tubes and drains. Address sensory deficits including vision and hearing. Ensure no bowel or bladder retention and call with concerns. Mobilize as much possible, ideally out of bed for meals if able. -First line treatment to help control behavior disturbances is a sitter (family or staff). Second line treatment includes physical and/or chemical restraints but these must be used with good judgement. Narcotics and benzodiazepines are not indicated. Antipsychotics to be used p.r.n. at the discretion of the collection clerk physician at the time of behavioral disturbance. #Fall at home #rhabdomyolysis -creatinine kinase 721 on admission. Continued to improve. -PTOT #psychosis -in the afternoon of 10/20/2023 the patient became verbally aggressive with the staff and eventually posed a harm to himself and staff. It took multiple staff members to get him into bed. He continued to be confused throughout the night. -on 10/20 in the morning the patient was sitting in a chair and suddenly became unresponsive. His blood pressure was low. CT head did not demonstrate acute abnormality. CTA neck had 0% stenosis in the proximal internal carotid arteries. No aneurysm or significant intracranial artery stenosis. Demonstrated again nonspecific cerebral white matter disease.
[2023-10-22 16:10] VITALS: BP 96/67; PULSE 78; RESP 20; TEMP 36.6; O2SAT 99
[2023-10-22 20:00] VITALS: PULSE 87; RESP 18; O2SAT 100
[2023-10-22] MEDS: TAMSULOSIN HCL 0.4 MG CAPSULE PO (20:32)
[2023-10-22 21:24] VITALS: BP 153/89; PULSE 87; RESP 18; TEMP 36.6; O2SAT 100
--- NOTE | 2023-10-23 05:00 | ECG_ITS ---
Test Date: 2023-10-23 07:51:12 Measurements Intervals [place] Rate: 63 P: 27 [place]: 203 QRS: -23 QRSD: 100 T: 13 QT: 413 QTc: 426 Interpretive Statements SINUS RHYTHM LEFT AXIS DEVIATION [QRS AXIS < -20] OTHERWISE UNREMARKABLE ECG Compared to ECG 10/22/2023 07:49:58 NO SIGNIFICANT CHANGE Electronically Signed On 10-23-2023 08:47:53 CDT by Juancarlos Singleton M.D.
[2023-10-23 06:00] VITALS: BP 143/54; PULSE 63; RESP 16; TEMP 36.4; O2SAT 99
[2023-10-23] MEDS: rOPINIRole HCL 0.5 MG TABLET PO ×3 (08:55→17:38)
[2023-10-23] MEDS: METOPROLOL TARTRATE 12.5 MG TABLET PO ×2 (08:55→20:56)
[2023-10-23] MEDS: CARBIDOPA/LEVODOPA 12.5/50 MG TABLET 1 TABLET PO ×4 (08:55→20:56)
[2023-10-23] MEDS: ENOXAPARIN 40 MG/0.4 ML SYRINGE SUB-Q (08:56)
--- NOTE | 2023-10-23 10:58 | PM.IMPN ---
Progress Note: A&P Assessment and Plan (1) Neurocognitive disorder: Code(s): R41.9 - Unspecified symptoms and signs involving cognitive functions and awareness Status: Acute (2) Syncope and collapse: Code(s): R55 - Syncope and collapse Status: Acute (3) Rhabdomyolysis: Code(s): M62.82 - Rhabdomyolysis Status: Acute (4) Rhabdomyolysis: Qualifiers: Encounter type: initial encounter Rhabdomyolysis type: traumatic Qualified Code(s): T79.6XXA - Traumatic ischemia of muscle, initial encounter Code(s): M62.82 - Rhabdomyolysis Status: Acute (5) Frequent falls: Code(s): R29.6 - Repeated falls Status: Acute (6) Generalized weakness: Code(s): R53.1 - Weakness Status: Acute (7) Altered mental status: Qualifiers: Altered mental status type: somnolence Qualified Code(s): R40.0 - Somnolence Code(s): R41.82 - Altered mental status, unspecified Status: Acute Plan At baseline, this is a pleasant 83-year-old male with past medical history Parkinson's, neurocognitive disorder/dementia, hyperlipidemia, BPH. Patient lives at home alone. Sometime on the night prior to admission on 10/17/2023 he found himself on the floor and does not know how he got there. He has a Life Alert and pressed it to call EMS. Patient had no symptoms to report otherwise, did not have focal neurological deficits. Upon arrival to ED he was hypertensive with a blood pressure of 218/124. Creatinine kinase was 721. CT head performed showed stable moderate nonspecific cerebral white matter disease. Chest x-ray without acute disease. UA not indicative of UTI. EKG with a QTC of 442. No acute ischemia. Admitted on 10/18/2023. ----- #Parkinson's/neurocognitive disorder/dementia/frequent falls at home/weakness -patient lives alone. Son Jc reports the patient has become increasingly confused over months and is unsafe at home. Agree with this. Care coordination planning for placement/rehab, anticipate Tuesday. -dietary supplements -Attempt to minimize nocturnal disturbances (avoid unnecessary lab draws, vital signs, nighttime medications). Promote regular sleep-wake cycle. Provide orienting stimuli including clock, calendar, lights on during the day and off at nighttime, and minimal staff changes. Minimize the use of tubes and drains. Address sensory deficits including vision and hearing. Ensure no bowel or bladder retention and call with concerns. Mobilize as much possible, ideally out of bed for meals if able. -First line treatment to help control behavior disturbances is a sitter (family or staff). Second line treatment includes physical and/or chemical restraints but these must be used with good judgement. Narcotics and benzodiazepines are not indicated. Antipsychotics to be used p.r.n. at the discretion of the vice president of communications physician at the time of behavioral disturbance. #Fall at home #rhabdomyolysis -creatinine kinase 721 on admission. Continued to improve. -PTOT #psychosis -in the afternoon of 10/20/2023 the patient became verbally aggressive with the staff and eventually posed a harm to himself and staff. It took multiple staff members to get him into bed. He continued to be confused throughout the night. -on 10/20 in the morning the patient was sitting in a chair and suddenly became unresponsive. His blood pressure was low. CT head did not demonstrate acute abnormality. CTA neck had 0% stenosis in the proximal internal carotid arteries. No aneurysm or significant intracranial artery stenosis. Demonstrated again nonspecific cerebral white matter disease. An MRI brain without contrast performed shortly after demonstrated brain atrophy with mild deep white matter ischemic changes. -a 1 L normal saline bolus was given with good response in blood pressure. The patient had more color and was more responsive. Suspect hypovolemia due to poor oral intake. -on
[2023-10-23 14:00] VITALS: BP 143/55; PULSE 63; RESP 16; TEMP 36.4; O2SAT 98
--- NOTE | 2023-10-23 19:52 | PC.NURSE ---
I was informed that pt refuses to take meds unless they are crushed and put in orange juice. Upon review, all but 1 of pt's meds CANNOT be crushed. Will educate pt as to med administration and discuss with charge nurse.
[2023-10-23 20:56] VITALS: PULSE 63
--- NOTE | 2023-10-23 21:02 | PC.NURSE ---
Multiple attempts to administer medications PO to pt were attempted including using applesauce and pudding but pt not able to swallow. Pt visibly strugging to swallow anything regardless of size or texture.
[2023-10-23 21:07] VITALS: BP 129/86; PULSE 98; RESP 18; TEMP 36.4; O2SAT 98
[2023-10-24 05:26] VITALS: BP 153/88; PULSE 61; RESP 18; TEMP 36.6; O2SAT 98
[2023-10-24 07:01] LABS: Anion Gap 6 mmol/L (4-12); Blood Urea Nitrogen 20 mg/dL (9-20); Carbon Dioxide 31 mmol/L (22-30); Chloride 99 mmol/L (98-107); Potassium 3.7 mmol/L (3.4-5.0); Sodium 136 mmol/L (137-145)
[2023-10-24 07:02] LABS: Calcium 9.1 mg/dL (8.4-10.2); Creatine Kinase 295 U/L (55-170); Estimated CRCL calculation 42 ml/min; Estimated Glomerular Filt Rate > 60; Glucose 81 mg/dL (65-110)
[2023-10-24 08:41] VITALS: O2SAT 98
[2023-10-24 12:35] VITALS: PULSE 100
[2023-10-24] MEDS: rOPINIRole HCL 0.5 MG TABLET PO (12:35)
[2023-10-24] MEDS: ENOXAPARIN 40 MG/0.4 ML SYRINGE SUB-Q (12:35)
[2023-10-24] MEDS: METOPROLOL TARTRATE 12.5 MG TABLET PO (12:35)
[2023-10-24] MEDS: CARBIDOPA/LEVODOPA 12.5/50 MG TABLET 1 TABLET PO (12:35)
--- NOTE | 2023-10-24 13:01 | PM.DS ---
DS: Admitting Diagnosis Discharge Date 10/24/2023 Admitting Diagnosis Rhabdomyolysis DS: Discharge Diagnosis Discharge Diagnosis (1) Neurocognitive disorder: Code(s): R41.9 - Unspecified symptoms and signs involving cognitive functions and awareness Status: Acute (2) Syncope and collapse: Code(s): R55 - Syncope and collapse Status: Acute (3) Rhabdomyolysis: Code(s): M62.82 - Rhabdomyolysis Status: Acute (4) Oropharyngeal dysphagia: Code(s): R13.12 - Dysphagia, oropharyngeal phase Status: Acute (5) Frequent falls: Code(s): R29.6 - Repeated falls Status: Acute (6) Generalized weakness: Code(s): R53.1 - Weakness Status: Acute (7) Altered mental status: Qualifiers: Altered mental status type: somnolence Qualified Code(s): R40.0 - Somnolence Code(s): R41.82 - Altered mental status, unspecified Status: Acute DS: Summary Hospital Course Hospital Course: At baseline, this is a pleasant 83-year-old male with past medical history Parkinson's, neurocognitive disorder/dementia, hyperlipidemia, BPH. Patient lives at home alone. Sometime on the night prior to admission on 10/17/2023 he found himself on the floor and does not know how he got there. He has a Life Alert and pressed it to call EMS. Patient had no symptoms to report otherwise, did not have focal neurological deficits. Upon arrival to ED he was hypertensive with a blood pressure of 218/124. Creatinine kinase was 721. CT head performed showed stable moderate nonspecific cerebral white matter disease. Chest x-ray without acute disease. UA not indicative of UTI. EKG with a QTC of 442. No acute ischemia. Admitted on 10/18/2023. ----- On 10/24/2023 the patient's mental status is stable. He is stable for discharge to SNF for rehab. He has had frequent falls and the inability to take care of himself at home. His primary contact is the son who we have been in discussion with. Conducted shared decision making with the son and the patient. Son Jc reports that the patient has been continuously refusing to be placed in spite of the inability to take care of himself at home. He reports that the patient knows he can fall and have a disastrous outcome but the patient continues to want to be home. The proposal writer has educated the patient on the importance of getting 24 hour care at the stage of his advanced dementia/Parkinson's. The patient is amenable to going to rehab hopefully eventually permanent placement. All their questions and concerns were answered to satisfaction. Please see below for the individual problems and management: #Parkinson's/neurocognitive disorder/dementia/frequent falls at home/weakness -patient lives alone. Son Jc reports the patient has become increasingly confused over months and is unsafe at home. Agree with this. Care coordination planning for placement/rehab, anticipate Tuesday. -dietary supplements -Attempt to minimize nocturnal disturbances (avoid unnecessary lab draws, vital signs, nighttime medications). Promote regular sleep-wake cycle. Provide orienting stimuli including clock, calendar, lights on during the day and off at nighttime, and minimal staff changes. Minimize the use of tubes and drains. Address sensory deficits including vision and hearing. Ensure no bowel or bladder retention and call with concerns. Mobilize as much possible, ideally out of bed for meals if able. -First line treatment to help control behavior disturbances is a sitter (family or staff). Second line treatment includes physical and/or chemical restraints but these must be used with good judgement. Narcotics and benzodiazepines are not indicated. Antipsychotics to be used p.r.n. at the discretion of the contact printer dry film physician at the time of behavioral disturbance. #Fall at home #rhabdomyolysis -creatinine kinase 721 on admission. Continued to improve. -PTOT #psychosis -in t
[2023-10-24 13:54] VITALS: BP 121/83; PULSE 85; RESP 17; TEMP 36.8; O2SAT 100
--- NOTE | 2023-10-24 14:38 | PCSTNOTE ---
Please refer to the Modified Barium Swallow Evaluation in the EMR.
== END 2023-10-24 16:50 | DRG 897 ==
LOC: ANHED 10:19 → ANHIMU 11:59 → ANH3MEDSUR 10-19 17:50
PROVIDERS: Admitting Provider Internal Medicine; Emergency Provider Emergency Medicine; PCP Internal Medicine; Visit Provider General Practice
DX: F19.959 Other psychoactive substance use, unspecified with psychoactive substance-induced psychotic disorder, unspecified (principal); M62.82 Rhabdomyolysis; F02.811 Dementia in other diseases classified elsewhere, unspecified severity, with agitation; G20.A1 Parkinson's disease without dyskinesia, without mention of fluctuations; N18.31 Chronic kidney disease, stage 3a; I12.9 Hypertensive chronic kidney disease with stage 1 through stage 4 chronic kidney disease, or unspecified chronic kidney disease; I95.9 Hypotension, unspecified; D64.9 Anemia, unspecified; E78.5 Hyperlipidemia, unspecified; K21.9 Gastro-esophageal reflux disease without esophagitis; C61 Malignant neoplasm of prostate; N40.0 Benign prostatic hyperplasia without lower urinary tract symptoms; R13.12 Dysphagia, oropharyngeal phase; R41.9 Unspecified symptoms and signs involving cognitive functions and awareness; R29.6 Repeated falls; Z87.891 Personal history of nicotine dependence; Z79.82 Long term (current) use of aspirin; Z86.718 Personal history of other venous thrombosis and embolism
CPT/HCPCS: 36415; 70450; 70496; 70498; 70551; 71045; 80048; 80053; 81001; 82550; 82948; 83605; 83735; 83880; 84145; 84484; 85025; 85027; 85610; 92611; 93005; 96361; 96372; 96374; 96375; 97110; 97116; 97161; 97165; 97530; 97535; 99285; A9270; G0378; J1650; J2405; J7030; Q9967

== ENCOUNTER 2023-12-09 04:23 | Emergency (ER) | payer MEDICARE, SELFPAY ==
--- NOTE | ~2023-12-09 | XR_ITS ---
AP view of the pelvis and AP and lateral views of the bilateral hips Clinical history: Pain Findings: No acute fracture or dislocation is seen. Osseous alignment is anatomic. There is mild dege nerative change of the right hip joint. Left hip joint intact. Soft tissues are unremarkable. Impression: Mild osteoarthritis of the right hip joint. Reviewed, dictated and finalized at location . Impression: Mild osteoarthritis of the right hip joint.
--- NOTE | ~2023-12-09 | CT_ITS ---
Noncontrast CT scan of the lumbar spine CLINICAL HISTORY: Pain, status post fall TECHNIQUE: Axial noncontrast imaging of the lumbar spine was performed. Sagittal and coronal reformat wes images were constructed. Dose reduction technique was used on this scan by utilizing automated ex posure control and iterative reconstruction technique. The dose-length product (DLP) was 570.56 mGy-c m. COMPARISON: 06/14/2023 FINDINGS: No acute fracture identified. There are bilateral L5 pars interarticularis defects, with 10 mm anterolisthesis of L5 over S1. Osseous alignment is unchanged from prior exam. At L1-L2, there is moderate to advanced degenerative disc narrowing. There is minimal disc bulge and mild facet arthropathy. No jacqueline central canal stenosis. There is severe bilateral neural foraminal n arrowing. At L2-L3, there is mild degenerative disc narrowing. There is minimal disc bulge with mild facet arth ropathy. There is probable moderate central canal stenosis. There is severe bilateral neural foramina l narrowing. L3-L4, there is disc bulge and facet arthropathy with moderate to severe spinal canal stenosis/thecal sac compression. There is severe bilateral neural foraminal narrowing. At L4-L5, there is disc bulge with severe facet arthropathy. There is mild to moderate central canal stenosis. There is severe bilateral neural foraminal narrowing. At L5-S1, there is no jacqueline spinal canal stenosis despite the listhesis. There is severe bilateral ne ural foraminal narrowing. Paravertebral soft tissues are unremarkable. Impression: No acute abnormality. Chronic L5 pars interarticularis defects, with 10 mm anterolisthesis of L5 over S1. Severe degenerative spondylosis throughout the lumbar spine, as detailed above. Reviewed, dictated and finalized at [facility]. Impression: No acute abnormality. Chronic L5 pars interarticularis defects, with 10 mm anterolisthesis of L5 over S1. Severe degenerative spondylosis throughout the lumbar spine, as detailed above.
[2023-12-09 04:24] VITALS: BP 176/96; PULSE 61; RESP 18; TEMP 36.6; O2SAT 100
--- NOTE | 2023-12-09 04:44 | ED.GENADULT ---
HPI - General Adult General Chief complaint: Fall Stated complaint: fall Time Seen by Provider: 12/09/23 04:26 History of Present Illness HPI narrative: Patient is a 83-year-old gentleman who presents emergency department with chief complaint of back pain in hip pain status post fall the patient reports that he was in his chair and tripped fell and complains of low back pain and pain in bilateral hips the patient reports that he did bruise up his feet but they are not really hurting that much the patient states that he had no loss of consciousness denies hitting his head. The patient also reports that he is not on blood thinners Related Data Home Medications Medication Instructions Recorded Confirmed aspirin 81 mg chewable tablet 81 mg PO DAILY 04/27/23 11/03/23 donepezil 10 mg tablet (Aricept) 10 mg PO DAILY 04/27/23 11/03/23 metoprolol tartrate 25 mg tablet 12.5 mg PO BID 06/15/23 11/03/23 rosuvastatin 10 mg tablet 10 mg PO HS 07/29/23 11/03/23 Allergies Allergy/AdvReac Type Severity Reaction Status Date / Time No Known Allergies Allergy Verified 07/28/23 16:38 Review of Systems Review of Systems: A 10 system review of systems was completed on the patient and is negative except for what is stated in the HPI. Nursing and ancillary documentation was reviewed. [facility] Past Medical History Medical History Benign prostatic hyperplasia Chronic anemia Chronic kidney disease, stage 3 Deep venous thrombosis Gastroesophageal reflux disease Hyperlipidemia Hypertension Neurocognitive disorder Overweight (BMI 25.0-29.9) Parkinsons disease Prostate cancer Protein calorie malnutrition Small bowel obstruction with strangulation or infarction Surgical History Surgical History History of colonoscopy with polypectomy History of transurethral resection of prostate PEG (percutaneous endoscopic gastrostomy) status Family History Family History Father Family history of cardiovascular disease Family history of elevated blood lipids Diabetes mellitus Suicide Mother Family history of malignant neoplasm of breast in first degree relative Other Hypertension Social History Social History Social History: Surrogate medical decision maker: Jc Goins, son. Code status: Smoking packs per day: 3 Smoking cigarettes per day: 60.0 Years smoked: 11 Smoking pack-years: 33.00 Smoking status: Former smoker Second hand tobacco smoke exposure: No Alcohol intake: current Drinks per week: 7 Alcohol use details: Rare alcohol use. Substance use: never Substance use type: does not use Do You Feel Safe in your Home?: Yes Lack of Transportation: No Lack of Food: Never True Current Housing: I Have Housing Concerned About Future Housing: No Difficulty Paying Gas/Electric Bills: No Difficulty Paying for Meds: No Currently Unemployed: No Education: High School Diploma/GED Difficulty w/ Childcare or Family Care: No Living arrangements: alone Additional living arrangements comments: son visits often; neighbor Torrey checks on him; patient has life alert Additional occupation/education comments: Worked in the [employer] and for the [employer] Spiritual care concerns: No Exam Narrative: GENERAL: Well-appearing, well-nourished, and in no acute distress. HEAD: Normocephalic, atraumatic. EYES: PERRLA and EOMI. ENT: Nares clear, no rhinorrhea or epistaxis. Mucous membranes moist. NECK: Supple. CHEST: Clear to auscultation. No respiratory distress. HEART: Regular rate and rhythm. No murmur heard. Normal peripheral pulses. ABDOMEN: Soft, nontender, nondistended, normal active bowel sounds. Back: There is tenderness to palpation lumbar regio
[2023-12-09 05:11] LABS: Basophils Absolute Auto 0.1 K/mm3 (0.0-0.1); Basophils Percent Auto 0.6 % (0.2-1.2); Eosinophils Absolute Auto 0.2 K/mm3 (0-0.3); Eosinophils Percent Auto 2.3 % (0-4.4); Hemoglobin 11.6 g/dL (14.0-18.0); Immature Granulocyte Absolute 0.04 K/mm3 (0.00-0.031); Immature Granulocyte Percent A 0.5 % (0-0.5); Lymphocytes Absolute Auto 1.01 K/mm3 (0.9-3.2); Lymphocytes Percent Auto 12.8 % (18.3-44.2); Mean Corpuscular HGB Conc 33.1 g/dl (32-36); Mean Corpuscular Hemoglobin 31.4 pg (26-34); Mean Corpuscular Volume 94.6 fl (80-100); Monocytes Absolute Auto 0.9 K/mm3 (0.1-0.6); Monocytes Percent Auto 11.9 % (2.6-8.5); Neutrophils Absolute Auto 5.7 K/mm3 (1.3-6.7); Neutrophils Percent Auto 71.9 % (45.5-73.1); Platelet Count Result 198 k/mm3 (150-375); Red Cell Distribution Width 13.7 % (11.5-14.5); White Blood Count 7.9 K/mm3 (4.5-10.0)
[2023-12-09 05:21] LABS: Alanine Aminotransferase 21 U/L (6-50); Albumin Level 4.4 g/dL (3.5-5.1); Alkaline Phosphatase 67 U/L (38-126); Anion Gap 6 mmol/L (4-12); Aspartate Amino Transferase 62 U/L (17-59); Bilirubin,Total 0.9 mg/dL (0.2-1.3); Blood Urea Nitrogen 27 mg/dL (9-20); Calcium 9.7 mg/dL (8.4-10.2); Carbon Dioxide 30 mmol/L (22-30); Chloride 101 mmol/L (98-107); Estimated CRCL calculation 39 ml/min; Estimated Glomerular Filt Rate 58; Glucose 100 mg/dL (65-110); Potassium 3.7 mmol/L (3.4-5.0); Sodium 137 mmol/L (137-145)
--- NOTE | 2023-12-09 05:33 | PC.NURSE ---
Patient attempted to urinate in urinal per request; unsuccessful. Patient bedding cleaned and clothes changed.
[2023-12-09 07:01] VITALS: BP 158/90; PULSE 58; RESP 16; O2SAT 100
[2023-12-09 08:15] VITALS: BP 149/93; PULSE 53; RESP 18; TEMP 36.3; O2SAT 98
== END 2023-12-09 08:20 | disposition home or self-care (01) ==
PROVIDERS: Emergency Provider Emergency Medicine; PCP Internal Medicine
DX: S30.0XXA Contusion of lower back and pelvis, initial encounter (principal); S70.00XA Contusion of unspecified hip, initial encounter; S90.31XA Contusion of right foot, initial encounter; I12.9 Hypertensive chronic kidney disease with stage 1 through stage 4 chronic kidney disease, or unspecified chronic kidney disease; N18.30 Chronic kidney disease, stage 3 unspecified; G20.A1 Parkinson's disease without dyskinesia, without mention of fluctuations; K21.9 Gastro-esophageal reflux disease without esophagitis; E78.5 Hyperlipidemia, unspecified; E66.3 Overweight; Z68.29 Body mass index [BMI] 29.0-29.9, adult; N40.0 Benign prostatic hyperplasia without lower urinary tract symptoms; R41.9 Unspecified symptoms and signs involving cognitive functions and awareness; Z86.718 Personal history of other venous thrombosis and embolism; Z85.46 Personal history of malignant neoplasm of prostate; Z86.0100 Personal history of colon polyps, unspecified; Z87.891 Personal history of nicotine dependence; Z90.79 Acquired absence of other genital organ(s); Z79.82 Long term (current) use of aspirin; Z79.899 Other long term (current) drug therapy; M16.11 Unilateral primary osteoarthritis, right hip; M47.816 Spondylosis without myelopathy or radiculopathy, lumbar region; V00.811A Fall from moving wheelchair (powered), initial encounter
CPT/HCPCS: 36415; 72131; 73521; 80053; 85025; 99284

== ENCOUNTER 2024-01-20 14:14 | Inpatient (IN) | payer MEDICARE, SELFPAY ==
[2024-01-20] VITALS (17 sets, daily range): BP systolic 109–133; BP diastolic 62–77; PULSE 45–72; RESP 16–19; TEMP 32.6–36.7; O2SAT 97–100; BMI 29.5
--- NOTE | ~2024-01-20 | CT_ITS ---
CTA brain carotid Ordering provider: Roxanne Rodgers APRN History: . RUE contraction, gaze palsy . Comparison: 10/21/2023 Technique: CT angiogram head and neck was performed following timed intravenous injection of contrast . Thin slice axial images and reformatted coronal images were obtained. Three dimensional reformatted images of the brain were also obtained using a [employer] workstation. FINDINGS: HEAD: --ANTERIOR AND MIDDLE CEREBRAL ARTERIES AND BRANCHES: Normal caliber and contour. --INTERNAL CAROTID ARTERIES: Trace atheromatous disease but no significant stenosis. No occlusion. --BASILAR ARTERY AND BRANCHES: Normal caliber and contour. No atheromatous disease. --POSTERIOR CEREBRAL ARTERIES: Normal caliber and contour --POSTERIOR COMMUNICATING ARTERIES: Not visualized which is probably related to congenital absence or small size. --ANEURYSM: None visualized. BRAIN: The ventricles are enlarged. The dilatation of the ventricles is proportional to the degree of sulcal prominence, not uncommon in the senescent brain. Decreased attenuation is identified within the periventricular white matter, likely secondary to micr ovascular ischemic disease, in a patient of this age. There is no mass, mass effect or midline shift. There is no abnormal extra-axial fluid collection or intracranial hemorrhage. Visualized paranasal sinuses are clear. The mastoid air cells are well aerated. No acute displaced fractures within the overlying cranium. NECK: --RIGHT CERVICAL CAROTID SYSTEM: Mild atheromatous disease of the carotid bulb and proximal internal carotid artery without significant stenosis. Percent stenosis per NASCET criteria is 0% No carotid d issection. No stenosis of the cervical carotid system. --LEFT CERVICAL CAROTID SYSTEM: Normal caliber and contour. Percent stenosis per NASCET criteria is 0% No carotid dissection. No stenosis of the cervical carotid system. --VERTEBRAL ARTERIES: Normal caliber and contour. The vertebral arteries are left dominant. --VISUALIZED AORTIC ARCH AND BRANCHING VESSELS: Mild atheromatous disease but no significant stenosis . --SOFT TISSUES: Unremarkable --CERVICAL SPINE: Age appropriate degenerative changes. IMPRESSION: 1. Largely unremarkable CTA of the head and neck, as detailed above. 2. Percent stenosis per NASCET criteria within the internal carotid arteries is 0% Reviewed, dictated and finalized at location A. R MACHINE OPERATOR
--- NOTE | ~2024-01-20 | CT_ITS ---
History: Altered mental status PROCEDURE: CT head without contrast. COMPARISON: 10/21/2023 TECHNIQUE: Axial imaging of the head performed from the skull base to the vertex without IV contrast. Sagittal a nd coronal reformations obtained. DLP: 757 mGy-cm FINDINGS: The ventricles are enlarged. The dilatation of the ventricles is proportional to the degree of sulcal prominence, not uncommon in the senescent brain. Decreased attenuation is identified within the periventricular white matter, likely secondary to micr ovascular ischemic disease, in a patient of this age. There is no mass, mass effect or midline shift. There is no abnormal extra-axial fluid collection or intracranial hemorrhage. Visualized paranasal sinuses are clear. The mastoid air cells are well aerated. No acute displaced fractures within the overlying cranium. Impression: No acute intracranial hemorrhage or suspicious mass effect. Reviewed, dictated and finalized at location A. C STORE MANAGER Impression: No acute intracranial hemorrhage or suspicious mass effect.
--- NOTE | ~2024-01-20 | XR_ITS ---
EXAMINATION: XR chest 2V DATE: 01/20/2024 14:55 INDICATION: Cough. Altered mental status. TECHNIQUE: Frontal and lateral views of the chest were obtained. COMPARISON: Chest single view 10/18/2023 FINDINGS: There is mild atelectasis at right lung base. No pleural effusion or pneumothorax. The hear t size is normal. Calcified right hilar and mediastinal lymph nodes are consistent with old granuloma tous disease. IMPRESSION: 1. Mild atelectasis at right lung base. Reviewed, dictated and finalized at location A. UNITY ENGAGEMENT REPRESENTATIVE
--- NOTE | ~2024-01-20 | MR_ITS ---
EXAMINATION: MR brain/brain stem wo con DATE: 01/21/2024 15:11 INDICATION: acute stroke TECHNIQUE: Magnetic resonance imaging (MRI) of the brain and brainstem was performed without intraven ous contrast. Sequences included sagittal and axial T1-weighted SE, axial diffusion-weighted FS EPI A SSET, axial T2*-weighted GRE, axial T2-weighted FLAIR Propeller, and axial T2-weighted Propeller. Pos tcontrast axial and coronal T1-weighted SE was obtained. Apparent diffusion coefficient (ADC) maps we re created. COMPARISON: 10/21/2023 CT brain and CTA brain carotid 01/20/2024. FINDINGS: Focal areas of diffusion restriction in the bilateral cerebellar hemispheres and the cortex of the le ft occipital lobe, left posterior parietal lobe, and bilateral frontoparietal lobes near the vertex. No MRI evidence of hemorrhage or extra-axial collection. No suspicious foci of susceptibility to sugg est prior intraparenchymal hemorrhage. Moderate patchy white matter hyperintensity, likely representi ng moderate small vessel ischemic disease. Mild generalized parenchymal volume loss. The basilar cist erns are patent. Flow voids are preserved. Pansinus mucosal thickening. Globes and orbital contents a re within normal limits. IMPRESSION: Scattered focal areas of cerebral and cerebellar diffusion restriction consistent with small, focal, primarily cortical infarcts, with a pattern suggestive of embolic disease. Reviewed, dictated and finalized at location K. ATIONAL COORDINATOR IMPRESSION: Scattered focal areas of cerebral and cerebellar diffusion restriction consiste nt with small, focal, primarily cortical infarcts, with a pattern suggestive of embolic disease.
--- NOTE | ~2024-01-20 | XR_ITS ---
Portable chest x-ray Comparison: 01/20/2024 Clinical History: Cough, fever Findings: There is minimal bibasilar haziness Cardiomediastinal silhouette is stable. Bones and sof t tissues are unremarkable. Impression: Minimal bibasilar pulmonary edema versus possibly pneumonia. Stable cardiomegaly. Reviewed, dictated and finalized at [facility]. BRUSHER Impression: Minimal bibasilar pulmonary edema versus possibly pneumonia. Stable cardiomegaly.
--- NOTE | 2024-01-20 14:18 | ECG_ITS ---
Test Date: 2024-01-20 14:23:43 Measurements Intervals [place] Rate: 45 P: 33 AR: 252 QRS: -14 QRSD: 106 T: 10 QT: 552 QTc: 480 Interpretive Statements SINUS BRADYCARDIA WITH FIRST DEGREE AV BLOCK BORDERLINE ST-T WAVE ABNORMALITY- INFERIOR LEADS PROLONGED QT INTERVAL BASELINE ARTIFACT- I, II, III, AVR, AVL, AVF, V1-V6 ABNORMAL ECG Compared to ECG 10/23/2023 07:51:12 HEART RATE HAS DECREASED First degree AV block now present Prolonged QT interval now present Electronically Signed On 01-20-2024 14:28:49 [employer] by Thomas Day D.O.
[2024-01-20 14:49] LABS: Basophils Percent Auto 0.4 % (0.2-1.2); Eosinophils Absolute Auto 0.1 K/mm3 (0-0.3); Eosinophils Percent Auto 1.5 % (0-4.4); Hematocrit 33.6 % (42.0-52.0); Hemoglobin 11.2 g/dL (14.0-18.0); Immature Granulocyte Absolute 0.02 K/mm3 (0.00-0.031); Immature Granulocyte Percent A 0.3 % (0-0.5); Lymphocytes Absolute Auto 0.78 K/mm3 (0.9-3.2); Lymphocytes Percent Auto 11.5 % (18.3-44.2); Mean Corpuscular HGB Conc 33.3 g/dl (32-36); Mean Corpuscular Hemoglobin 31.2 pg (26-34); Mean Corpuscular Volume 93.6 fl (80-100); Mean Platelet Volume 10.7 fl (7.4-10.4); Monocytes Absolute Auto 0.8 K/mm3 (0.1-0.6); Monocytes Percent Auto 12.4 % (2.6-8.5); Neutrophils Percent Auto 73.9 % (45.5-73.1); Platelet Count Result 214 k/mm3 (150-375); Red Blood Count 3.59 M/mm3 (4.6-6.20); Red Cell Distribution Width 13.6 % (11.5-14.5); White Blood Count 6.8 K/mm3 (4.5-10.0)
[2024-01-20 14:55] LABS: Add Urine Microscopic? YES; Appearance Urine Clear (Clear); Bacteria Urine None Seen /hpf; Bilirubin Urine Negative (Negative); Blood Urine Non-Hemolyzed Trace (Negative); Color Urine Yellow (Yellow); Glucose Urine UA Negative (Negative); Ketones Urine Trace mg/dL (Negative); Leukocyte Esterase Ur Negative LEU/UL (Negative); Nitrate Urine Negative (Negative); Non Pathogenic Casts 0-2; Protein Urine 1+ mg/dL (Negative); Specific Grav Ur 1.013 (1.001-1.035); Squamous Epithelial Cell Urine None Seen /hpf (Few); Urobilinogen Urine 0.2 mg/dL (<2.0); WBC Urine 0-5 /hpf (0-3)
[2024-01-20 15:04] LABS: Alanine Aminotransferase 21 U/L (6-50); Albumin Level 3.9 g/dL (3.5-5.1); Alkaline Phosphatase 80 U/L (38-126); Anion Gap 6 mmol/L (4-12); Aspartate Amino Transferase 92 U/L (17-59); Bilirubin,Total 0.4 mg/dL (0.2-1.3); Blood Urea Nitrogen 40 mg/dL (9-20); Calcium 9.2 mg/dL (8.4-10.2); Carbon Dioxide 29 mmol/L (22-30); Chloride 105 mmol/L (98-107); Estimated CRCL calculation 47 ml/min; Estimated Glomerular Filt Rate > 60; Glucose 89 mg/dL (65-110); Potassium 3.4 mmol/L (3.4-5.0); Sodium 140 mmol/L (137-145)
[2024-01-20 15:05] LABS: Prothrombin Time 13.9 Seconds (11.1-14.7)
[2024-01-20 15:06] LABS: Partial Thromboplastin Time 30.2 Seconds (22.3-36.8)
--- NOTE | 2024-01-20 15:24 | ED_ITS ---
HPI - Weakness General Chief complaint: Weakness Stated complaint: weakness Time Seen by Provider: 01/20/24 14:20 History of Present Illness HPI Narrative: 84-year-old male with history of Parkinson's, dementia, hypertension, hyperlipidemia presenting with altered mental status and generalized weakness. His son is at bedside and helps with the history. States that he has had cold-like symptoms for the last few days. He has been experiencing increasingly frequent hallucinations, seeing people who are not actually there. States that this has happened in the past when he has had a UTI. Has not been complaining of anything else. Currently, the patient denies any complaints. Related Data Home Medications Medication Instructions Recorded Confirmed donepezil 10 mg tablet (Aricept) 10 mg PO DAILY 04/27/23 01/20/24 metoprolol tartrate 25 mg tablet 12.5 mg PO BID 06/15/23 01/20/24 ropinirole 0.5 mg tablet 1.5 mg PO QID 01/20/24 01/20/24 Allergies Allergy/AdvReac Type Severity Reaction Status Date / Time No Known Allergies Allergy Verified 01/20/24 19:40 Review of Systems Review of Systems: All systems reviewed & are unremarkable except as noted in HPI and below PMFSH Past Medical History Medical History (Updated 01/26/24 @ 12:21 by Angela Saul MD) Benign prostatic hyperplasia Chronic anemia Chronic kidney disease, stage 3 Deep venous thrombosis Dementia Gastroesophageal reflux disease Hallucinations Hyperlipidemia Hypertension Neurocognitive disorder Overweight (BMI 25.0-29.9) Parkinsons disease Prostate cancer Protein calorie malnutrition Small bowel obstruction with strangulation or infarction Surgical History Surgical History History of colonoscopy with polypectomy History of transurethral resection of prostate PEG (percutaneous endoscopic gastrostomy) status Family History Family History Father Family history of cardiovascular disease Family history of elevated blood lipids Diabetes mellitus Suicide Mother Family history of malignant neoplasm of breast in first degree relative Other Hypertension Social History Social History Social History: Surrogate medical decision maker: Jc Goins, son. Code status: Smoking packs per day: 3 Smoking cigarettes per day: 60.0 Years smoked: 11 Smoking pack-years: 33.00 Smoking status: Former smoker Tobacco type: cigarettes Second hand tobacco smoke exposure: No Alcohol intake: never Drinks per week: 7 Alcohol use details: Rare alcohol use. Substance use: never Substance use type: does not use Do You Feel Safe in your Home?: No Lack of Transportation: No Lack of Food: Never True Current Housing: I Have Housing Concerned About Future Housing: No Difficulty Paying Gas/Electric Bills: No Difficulty Paying for Meds: No Currently Unemployed: No Education: High School Diploma/GED Difficulty w/ Childcare or Family Care: No Living arrangements: alone Additional living arrangements comments: son visits often; neighbor Torrey checks on him; patient has life alert Additional occupation/education comments: Worked in the [employer] and for the [employer] Spiritual care concerns: No Exam Narrative: GENERAL: Chronically ill-appearing, no acute distress, pleasant cooperative HEAD: Normocephalic, atraumatic. EYES: PERRLA and EOMI. ENT: Mucous membranes dry NECK: Supple. CHEST: Clear to auscultation. No respiratory distress. HEART: Bradycardic, regular rhythm ABDOMEN: Soft, nontender, nondistended EXTREMITIES: Normal range of motion. No edema. SKIN: Warm, dry, no rash. NEURO: At baseline PSYCH: Normal mood and affect. Course Vital Signs Vital signs: Vital Signs Temperature 98.1 F 01/20/24 14:13 Pulse Rate 48 L 01/20/24 14:13 Respiratory Rate 19 01/20/24 14:13 Blood Pressure 109/65 01/20/24 14:13 Pulse Oximetry 98 01/20/24 14:13 Oxygen Delivery Room Air 01/20/24 14:13 Temperature 97.6 F 01/25/24 17:57 Pulse Rate 64 01/25/24 17:57 Respiratory Rate 20 01/25/24 17:57 Blood Pressure 118/61 01/25/24 17:57 Pulse Oximetry 98 01/25/24 17:57 Oxygen Delivery Room Air 01/25/24 08:00 Fraction of Inspired Oxygen 21 01/25/24 08:00 MDM - Weakness MDM Narrative Medical decision making narrative: 84-year-old male presenting with hallucinations, generalized weakness. Vital stable. Exam remarkable for the above. Blood work with elevated BUN. CK is greater than 1000. It appears this is his 3rd or 4th episode of rhabdomyolysis. It appears that he was kept on his statin upon discharge with his last episode. Fluids are ongoing. Chest x-ray and CT brain without acute abnormalities. Patient requires admission for hydration and further management. He and his family are agreeable this plan. Spoke with the hospitalist who has accepted him for admission. Differential Diagnosis Differential diagnosis: Likely hypoglycemia, hypothyroidism, rhabdomyolysis, dehydration and other (Parkinson's disease, generalized weakness) Medical Records Attestation: I reviewed the patient's medical records. Lab Data Attestation: I reviewed the patient's lab results. 01/24/24 04:41 01/24/24 04:41 Labs: Lab Results 01/20/24 01/20/24 01/20/24 Range/Units 14:41 15:28 22:30 WBC 6.8 5.7 (4.5-10.0) K/mm3 RBC 3.59 L 3.26 L (4.6-6.20) M/mm3 Hgb 11.2 L 10.0 L (14.0-18.0) g/dL Hct 33.6 L 31.0 L (42.0-52.0) % MCV 93.6 95.1 (80-100) fl MCH 31.2 30.7 (26-34) pg MCHC 33.3 32.3 (32-36) g/dl RDW 13.6 13.7 (11.5-14.5) % Plt Count 214 192 (150-375) k/mm3 MPV 10.7 H 10.7 H (7.4-10.4) fl Immature Gran % (Auto) 0.3 (0-0.5) % Neut % (Auto) 73.9 H (45.5-73.1) % Lymph % (Auto) 11.5 L (18.3-44.2) % Dare % (Auto) 12.4 H (2.6-8.5) % Eos % (Auto) 1.5 (0-4.4) % Baso % (Auto) 0.4 (0.2-1.2) % Lymph # (Auto) 0.78 L (0.9-3.2) K/mm3 Dare # (Auto) 0.8 H (0.1-0.6) K/mm3 Eos # (Auto) 0.1 (0-0.3) K/mm3 Baso # (Auto) 0.0 (0.0-0.1) K/mm3 Abs Immat Gran (auto) 0.02 (0.00-0.031) K/mm3 Absolute Neuts (auto) 5.0 (1.3-6.7) K/mm3 Absolute Nucleated RBC 0.000 (0.0-0.012) K/mm3 Nucleated RBC % 0.0 (0.0-0.2) % Platelet Estimate (Adequate) % Immature Plt Fraction (0.9-11.2) % Anisocytosis Ovalocytes [place] Cells Schistocytes PT 13.9 (11.1-14.7) Seconds INR 1.0 APTT 30.2 (22.3-36.8) Seconds Sodium 140 138 (137-145) mmol/L Potassium 3.4 3.7 (3.4-5.0) mmol/L Chloride 105 110 H (98-107) mmol/L Carbon Dioxide 29 24 (22-30) mmol/L Anion Gap 6 4 (4-12) mmol/L BUN 40 H D 41 H (9-20) mg/dL Creatinine 1.10 1.00 (0.7-1.3) mg/dL Estim Creat Clear Calc 47 45 ml/min Estimated GFR > 60 > 60 (59 - ) Glucose 89 78 (65-110) mg/dL POC Capillary Glucose (65-105) mg/dl Calcium 9.2 8.7 (8.4-10.2) mg/dL Magnesium (1.6-2.3) mg/dL Total Bilirubin 0.4 (0.2-1.3) mg/dL AST 92 H (17-59) U/L ALT 21 (6-50) U/L Alkaline Phosphatase 80 (38-126) U/L Total Creatine Kinase 1060 H (55-170) U/L Total Protein 7.0 (6.3-8.2) g/dL Albumin 3.9 (3.5-5.1) g/dL TSH (Reflex) 5.080 H (0.465-4.68) uIU/mL Free T4 0.95 (0.78-2.19) ng/dL Total T3 0.98 (0.97-1.69) NG/ML Urine Color Yellow (Yellow) Urine Appearance Clear (Clear) Urine pH 7.0 (5.0-9.0) Ur Specific [place] 1.013 (1.001-1.035) Urine Protein 1+ H (Negative) mg/dL Urine Glucose (UA) Negative (Negative) mg/dL Urine Ketones Trace H (Negative) mg/dL Ur Blood (Man) Non-hemolyzed trace (Negative) Urine Nitrate Negative (Negative) Urine Bilirubin Negative (Negative) Urine Urobilinogen 0.2 (<2.0) mg/dL Leukocyte Esterase Rfl Negative (Negative) ALVARO/UL Urine RBC 6-10 H (0-2) /hpf Urine WBC 0-5 (0-3) /hpf Ur Squamous Epith Cells None seen (Few) /hpf Urine Bacteria None seen /hpf Urine Casts 0-2 Urine Opiates Screen (Negative) Urine Methadone Screen (Negative) Ur Barbiturates Screen (Negative) Ur Phencyclidine Scrn (Negative) Ur Amphetamine Screen (Negative) U Benzodiazepines Scrn (Negative) Urine Cocaine Screen (Negative) U Cannabinoids Screen (Negative) Influenza A (RT-PCR) Negative (Negative) Influenza B (RT-PCR) Negative (Negative) RSV (RT-PCR) Negative (Negative) SARS-CoV-2 RNA (RT-PCR) Negative (Negative) 01/21/24 01/21/24 01/21/24 Range/Units 00:20 04:34 12:43 WBC 7.2 (4.5-10.0) K/mm3 RBC 3.19 L (4.6-6.20) M/mm3 Hgb 10.1 L (14.0-18.0) g/dL Hct 31.7 L (42.0-52.0) % MCV 99.4 (80-100) fl MCH 31.7 (26-34) pg MCHC 31.9 L (32-36) g/dl RDW 13.9 (11.5-14.5) % Plt Count 182 (150-375) k/mm3 MPV 11.2 H (7.4-10.4) fl Immature Gran % (Auto) 0.4 (0-0.5) % Neut % (Auto) 79.8 H (45.5-73.1) % Lymph % (Auto) 8.8 L (18.3-44.2) % Dare % (Auto) 9.9 H (2.6-8.5) % Eos % (Auto) 0.7 (0-4.4) % Baso % (Auto) 0.4 (0.2-1.2) % Lymph # (Auto) 0.63 L (0.9-3.2) K/mm3 Dare # (Auto) 0.7 H (0.1-0.6) K/mm3 Eos # (Auto) 0.1 (0-0.3) K/mm3 Baso # (Auto) 0.0 (0.0-0.1) K/mm3 Abs Immat Gran (auto) 0.03 (0.00-0.031) K/mm3 Absolute Neuts (auto) 5.7 (1.3-6.7) K/mm3 Absolute Nucleated RBC 0.000 (0.0-0.012) K/mm3 Nucleated RBC % 0.0 (0.0-0.2) % Platelet Estimate Slightly decreased (Adequate) % Immature Plt Fraction 4.2 (0.9-11.2) % Anisocytosis 1+ Ovalocytes 1+ [place] Cells 1+ Schistocytes None seen PT (11.1-14.7) Seconds INR APTT (22.3-36.8) Seconds Sodium 140 (137-145) mmol/L Potassium 3.8 (3.4-5.0) mmol/L Chloride 110 H (98-107) mmol/L Carbon Dioxide 24 (22-30) mmol/L Anion Gap 6 (4-12) mmol/L BUN 37 H (9-20) mg/dL Creatinine 1.20 (0.7-1.3) mg/dL Estim Creat Clear Calc 38 ml/min Estimated GFR 58 L (59 - ) Glucose 70 (65-110) mg/dL POC Capillary Glucose 85 (65-105) mg/dl Calcium 8.7 (8.4-10.2) mg/dL Magnesium (1.6-2.3) mg/dL Total Bilirubin 0.2 (0.2-1.3) mg/dL AST 72 H (17-59) U/L ALT 47 (6-50) U/L Alkaline Phosphatase 68 (38-126) U/L Total Creatine Kinase 595 H (55-170) U/L Total Protein 6.0 L (6.3-8.2) g/dL Albumin 3.1 L (3.5-5.1) g/dL TSH (Reflex) (0.465-4.68) uIU/mL Free T4 (0.78-2.19) ng/dL Total T3 (0.97-1.69) NG/ML Urine Color (Yellow) Urine Appearance (Clear) Urine pH (5.0-9.0) Ur Specific [place] (1.001-1.035) Urine Protein (Negative) mg/dL Urine Glucose (UA) (Negative) mg/dL Urine Ketones (Negative) mg/dL Ur Blood (Man) (Negative) Urine Nitrate (Negative) Urine Bilirubin (Negative) Urine Urobilinogen (<2.0) mg/dL Leukocyte Esterase Rfl (Negative) ALVARO/UL Urine RBC (0-2) /hpf Urine WBC (0-3) /hpf Ur Squamous Epith Cells (Few) /hpf Urine Bacteria /hpf Urine Casts Urine Opiates Screen Negative (Negative) Urine Methadone Screen Negative (Negative) Ur Barbiturates Screen Negative (Negative) Ur Phencyclidine Scrn Negative (Negative) Ur Amphetamine Screen Negative (Negative) U Benzodiazepines Scrn Negative (Negative) Urine Cocaine Screen Negative (Negative) U Cannabinoids Screen Negative (Negative) Influenza A (RT-PCR) (Negative) Influenza B (RT-PCR) (Negative) RSV (RT-PCR) (Negative) SARS-CoV-2 RNA (RT-PCR) (Negative) 01/22/24 01/22/24 01/23/24 Range/Units 02:53 02:53 04:38 WBC 7.4 10.3 H (4.5-10.0) K/mm3 RBC 3.20 L 3.09 L (4.6-6.20) M/mm3 Hgb 10.1 L 9.7 L (14.0-18.0) g/dL Hct 30.3 L 29.3 L (42.0-52.0) % MCV 94.7 94.8 (80-100) fl MCH 31.6 31.4 (26-34) pg MCHC 33.3 33.1 (32-36) g/dl RDW 14.5 14.4 (11.5-14.5) % Plt Count 169 153 (150-375) k/mm3 MPV 10.8 H 10.5 H (7.4-10.4) fl Immature Gran % (Auto) 0.8 H 0.5 (0-0.5) % Neut % (Auto) 71.4 77.1 H (45.5-73.1) % Lymph % (Auto) 14.0 L 11.5 L (18.3-44.2) % Dare % (Auto) 13.5 H 10.1 H (2.6-8.5) % Eos % (Auto) 0.0 0.3 (0-4.4) % Baso % (Auto) 0.3 0.5 (0.2-1.2) % Lymph # (Auto) 1.04 1.18 (0.9-3.2) K/mm3 Dare # (Auto) 1.0 H 1.0 H (0.1-0.6) K/mm3 Eos # (Auto) 0.0 0.0 (0-0.3) K/mm3 Baso # (Auto) 0.0 0.1 (0.0-0.1) K/mm3 Abs Immat Gran (auto) 0.06 H 0.05 H (0.00-0.031) K/mm3 Absolute Neuts (auto) 5.3 7.9 H (1.3-6.7) K/mm3 Absolute Nucleated RBC 0.000 0.000 (0.0-0.012) K/mm3 Nucleated RBC % 0.0 0.0 (0.0-0.2) % Platelet Estimate (Adequate) % Immature Plt Fraction (0.9-11.2) % Anisocytosis Ovalocytes [place] Cells Schistocytes PT (11.1-14.7) Seconds INR APTT (22.3-36.8) Seconds Sodium 140 137 (137-145) mmol/L Potassium 3.4 3.6 (3.4-5.0) mmol/L Chloride 110 H 106 (98-107) mmol/L Carbon Dioxide 25 28 (22-30) mmol/L Anion Gap 5 3 L (4-12) mmol/L BUN 31 H 24 H (9-20) mg/dL Creatinine 1.40 H 1.00 (0.7-1.3) mg/dL Estim Creat Clear Calc 33 45 ml/min Estimated GFR 48 L > 60 (59 - ) Glucose 81 81 (65-110) mg/dL POC Capillary Glucose (65-105) mg/dl Calcium 8.9 8.5 (8.4-10.2) mg/dL Magnesium 1.9 1.8 (1.6-2.3) mg/dL Total Bilirubin 0.4 0.8 (0.2-1.3) mg/dL AST 101 H 133 H (17-59) U/L ALT 80 H 91 H (6-50) U/L Alkaline Phosphatase 64 62 (38-126) U/L Total Creatine Kinase Cancelled 2947 H 3173 H (55-170) U/L Total Protein 6.0 L 6.0 L (6.3-8.2) g/dL Albumin 3.3 L 3.1 L (3.5-5.1) g/dL TSH (Reflex) (0.465-4.68) uIU/mL Free T4 (0.78-2.19) ng/dL Total T3 (0.97-1.69) NG/ML Urine Color (Yellow) Urine Appearance (Clear) Urine pH (5.0-9.0) Ur Specific [place] (1.001-1.035) Urine Protein (Negative) mg/dL Urine Glucose (UA) (Negative) mg/dL Urine Ketones (Negative) mg/dL Ur Blood (Man) (Negative) Urine Nitrate (Negative) Urine Bilirubin (Negative) Urine Urobilinogen (<2.0) mg/dL Leukocyte Esterase Rfl (Negative) ALVARO/UL Urine RBC (0-2) /hpf Urine WBC (0-3) /hpf Ur Squamous Epith Cells (Few) /hpf Urine Bacteria /hpf Urine Casts Urine Opiates Screen (Negative) Urine Methadone Screen (Negative) Ur Barbiturates Screen (Negative) Ur Phencyclidine Scrn (Negative) Ur Amphetamine Screen (Negative) U Benzodiazepines Scrn (Negative) Urine Cocaine Screen (Negative) U Cannabinoids Screen (Negative) Influenza A (RT-PCR) (Negative) Influenza B (RT-PCR) (Negative) RSV (RT-PCR) (Negative) SARS-CoV-2 RNA (RT-PCR) (Negative) Imaging Data Radiologist's impression: ITS Impressions Chest X-Ray 01/20/24 14:57 IMPRESSION: 1. Mild atelectasis at right lung base. Head CT 01/20/24 15:59 Impression: No acute intracranial hemorrhage or suspicious mass effect. Head/Neck CTA 01/21/24 00:06 IMPRESSION: 1. Largely unremarkable CTA of the head and neck, as detailed above. 2. Percent stenosis per NASCET criteria within the internal carotid arteries is 0% Brain MRI 01/21/24 15:52 IMPRESSION: Scattered focal areas of cerebral and cerebellar diffusion restriction consistent with small, focal, primarily cortical infarcts, with a pattern [place] ggestive of embolic disease. Chest X-Ray 01/22/24 09:11 Impression: Minimal bibasilar pulmonary edema versus possibly pneumonia. Stable cardiomegaly. Critical Care Time Critical Care Time Critical Care Time: No Discharge Plan Discharge Clinical Impression: Rhabdomyolysis, Generalized weakness, Altered mental status Patient Disposition: Hospice - Medical Facility Condition: Guarded Prognosis
[2024-01-20] MEDS: SODIUM CHLORIDE 0.9% IV 1,000 ML 999 ML IV CONT ×2 (15:36→16:02)
[2024-01-20 15:43] LABS: Creatine Kinase 1060 U/L (55-170)
[2024-01-20 16:10] LABS: Influenza A QL RT-PCR Negative (Negative); Influenza B QL RT-PCR Negative (Negative); RSV RNA, RT-PCR Negative (Negative); SARS-CoV-2 RNA PCR Negative (Negative)
--- NOTE | 2024-01-20 17:07 | P.HP_ITS ---
H&P: HPI History of Present Illness Date/Time: 01/20/24 17:07 Chief Complaint: Weakness Narrative: 84 y/o M presents here with generalized weakness and hallucinations with PMH of Parkinson's, CKD, HTN, HLD, and prostate cancer. The patient presents from home via EMS for further evaluation of increased generalized weakness and hallucinations. Due to somnolence, patient unable to reliably contribute to HPI. History obtained through chart review and ED provider report. The patient reported he initially developed cold-like symptoms over the last few days. Then began to develop visual hallucinations as well, further described as seeing people who were not present. The son who was at bedside reported that he typically develops hallucinations with UTIs historically. ED evaluation revealed a elevated CK level at 1060. The patient has a history of rhabdomyolysis including the following dates: 04/27/2023, 06/14/2023, 07/28/2023, 10/18/2023. Initial episode patient presented similarly with weakness and increased confusion, found to have a UTI. 2nd presentation was post fall. The 3rd presentation was post fall. Fourth episode was also post fall. The patient is currently denying falls, however he is unreliable at this time. Initial VS at presentation: 98.1? F, HR 48, RR 19, 109/65, and 98% on RA. ED workup showed: no leukocytosis, hemoglobin 11.2 (at baseline), normal coags, creatinine 1.1 and GFR >60, CK 1060. UA not suspicious for UTI. Viral PCR negative. CXR showed mild atelectasis at the right lung base. Head CT showed no acute intracranial hemorrhage or suspicious mass effect. Review of Systems Review of Systems: ROS unobtainable: Yes unobtainable due to mental status (Limited) [facility] Past Medical History Medical History Benign prostatic hyperplasia Chronic anemia Chronic kidney disease, stage 3 Deep venous thrombosis Gastroesophageal reflux disease Hyperlipidemia Hypertension Neurocognitive disorder Overweight (BMI 25.0-29.9) Parkinsons disease Prostate cancer Protein calorie malnutrition Small bowel obstruction with strangulation or infarction Surgical History Surgical History History of colonoscopy with polypectomy History of transurethral resection of prostate PEG (percutaneous endoscopic gastrostomy) status Family History Family History Father Family history of cardiovascular disease Family history of elevated blood lipids Diabetes mellitus Suicide Mother Family history of malignant neoplasm of breast in first degree relative Other Hypertension Social History Social History Social History: Surrogate medical decision maker: Jc Goins, son. Code status: Smoking packs per day: 3 Smoking cigarettes per day: 60.0 Years smoked: 11 Smoking pack-years: 33.00 Smoking status: Former smoker Tobacco type: cigarettes Second hand tobacco smoke exposure: No Alcohol intake: never Drinks per week: 7 Alcohol use details: Rare alcohol use. Substance use: never Substance use type: does not use Do You Feel Safe in your Home?: No Lack of Transportation: No Lack of Food: Never True Current Housing: I Have Housing Concerned About Future Housing: No Difficulty Paying Gas/Electric Bills: No Difficulty Paying for Meds: No Currently Unemployed: No Education: High School Diploma/GED Difficulty w/ Childcare or Family Care: No Living arrangements: alone Additional living arrangements comments: son visits often; neighbor Torrey checks on him; patient has life alert Additional occupation/education comments: Worked in the [employer] and for the [employer] Spiritual care concerns: No Meds Home Medications and Allergies Home Medications Medication Instructions Recorded Confirmed Type tamsulosin 0.4 mg capsule 0.4 mg PO QHS #30 caps 12/31/22 01/20/24 Rx aspirin 81 mg chewable tablet 81 mg PO DAILY 04/27/23 01/20/24 History donepezil 10 mg tablet (Aricept) 10 mg PO DAILY 04/27/23 01/20/24 History metoprolol tartrate 25 mg tablet 12.5 mg PO BID 06/15/23 01/20/24 History rosuvastatin 10 mg tablet 10 mg PO HS 07/29/23 01/20/24 History carbidopa 25 mg-levodopa 100 mg 1 tablet PO QID #120 tabs 12/28/23 01/20/24 Rx tablet ropinirole 0.5 mg tablet 1.5 mg PO QID 01/20/24 01/20/24 History Allergies Allergy/AdvReac Type Severity Reaction Status Date / Time No Known Allergies Allergy Verified 01/20/24 19:40 Vital Signs Vital Signs - 24 hr 01/20/24 14:13 01/20/24 14:18 Temperature 98.1 F Pulse Rate 48 L 45 L Respiratory Rate 19 16 Blood Pressure 109/65 109/65 Pulse Oximetry 98 100 Oxygen Delivery Room Air Exam Const: General: comfortable and no acute distress Other: , male, elderly, ill-appearing HENMT: Face/Nose/Sinus: Normal nares present Mouth: Yes moist mucous membranes Eyes: General: appearance normal, both eyes and all related structures Sclera: sclerae normal Pupils: Equal, round and reactive pupils present EOM: EOMs intact bilaterally Other: Patient having difficulty following commands, unable to assess cardinal directions. Pupils are pinpoint to 2 mm. Resp: Effort & Inspection: normal respiratory effort Auscultation: clear to auscultation bilaterally Cardio: Rate: regular rate Rhythm: regular rhythm Other: S1-S2 present without murmur, rub, ectopy GI: Other: No particular expression with palpation of abdomen. Normoactive bowel sounds in all quadrants. Nondistended. Skin: General skin exam: normal color and no rashes or lesions noted Wounds: wounds noted (Small abrasion to bilateral knees) Neuro: Other: Patient is virtually nonverbal, very somnolent and will awaken to loud sound/repeated tapping. Does not sustain wakefulness. No asymmetry with acetylene gas compressor/plantarflexion. pupils 2 mm bilaterally. No nystagmus noted. Extrem: Other: Trace edema, symmetric Psych: Other: Flattened affect. Unable to assess further. H&P: Results Labs Labs: Short CBC 01/20/24 Range/Units 14:41 WBC 6.8 (4.5-10.0) K/mm3 Hgb 11.2 L (14.0-18.0) g/dL Hct 33.6 L (42.0-52.0) % Plt Count 214 (150-375) k/mm3 BMP 01/20/24 14:41 Sodium 140 Potassium 3.4 Chloride 105 Carbon Dioxide 29 BUN 40 H D Creatinine 1.10 Glucose 89 Calcium 9.2 Cardiac Enzymes 01/20/24 Range/Units 14:41 Total Creatine Kinase 1060 H (55-170) U/L Liver Function 01/20/24 Range/Units 14:41 Total Bilirubin 0.4 (0.2-1.3) mg/dL AST 92 H (17-59) U/L ALT 21 (6-50) U/L Alkaline Phosphatase 80 (38-126) U/L Albumin 3.9 (3.5-5.1) g/dL Urine 01/19/ Range/Units 14:41 Urine Color Yellow (Yellow) Urine Appearance Clear (Clear) Urine pH 7.0 (5.0-9.0) Ur Specific [place] 1.013 (1.001-1.035) Urine Protein 1+ H (Negative) mg/dL Urine Glucose (UA) Negative (Negative) mg/dL Assessment and Plan Assessment and plan (1) Altered mental status: Qualifiers: Altered mental status type: somnolence Qualified Code(s): R40.0 - Somnolence Code(s): R41.82 - Altered mental status, unspecified Status: Acute Assessment and Plan: - Head CT: No acute intracranial hemorrhage or suspicious mass effect. - patient found to be hypothermic: 90.7F, bella hugger applied - Rapid Response around 22:30, concern for hypotension. manual BP taken 105/70. However, LUE now contracted. Patient unable to follow gaze commands. Assessment at around 7 p.m. showed equal acetylene gas compressor and plantar flexion. However, exam was limited due to somnolence. given concern for CVA, stat CTA head/neck ordered. Transfer to IMU. - UDS added (2) Generalized weakness: Code(s): R53.1 - Weakness Status: Acute Assessment and Plan: - UA not consitent with UTI - CXR showing no PNA - viral PCR negative - CTA head and neck pending (3) Rhabdomyolysis: Qualifiers: Encounter type: initial encounter Rhabdomyolysis type: traumatic Qualified Code(s): T79.6XXA - Traumatic ischemia of muscle, initial encounter Code(s): M62.82 - Rhabdomyolysis Status: Acute Assessment and Plan: - CK 1060 - historically secondary to falls, is on statin. plan to d/c statin. - IV fluids: 2L bolus of NS, 100 mL/hr of LR - trend CK (4) Frequent falls: Code(s): R29.6 - Repeated falls Status: Chronic Assessment and Plan: - fall precautions - PT/OT evaluation for d/c planning - care coordination consulted for d/c planning (5) Parkinsons disease: Qualifiers: Dyskinesia presence: unspecified whether dyskinesia Fluctuating manifestations: unspecified whether manifestations fluctuate Qualified Code(s): G20.A1 - Parkinson's disease without dyskinesia, without mention of fluctuations Code(s): G20 - Parkinson's disease Status: Chronic Assessment and Plan: - continue home medications: Carbidopa-levodopa 1 tablet q.i.d. (6) Chronic kidney disease, stage 3: Qualifiers: Chronic kidney disease stage 3 subtype: unspecified whether 3a or 3b Qualified Code(s): N18.30 - Chronic kidney disease, stage 3 unspecified Code(s): N18.30 - Chronic kidney disease, stage 3 unspecified Status: Chronic Assessment and Plan: - creatinine 1.1 and GFR >60, previously 1.2 and GFR 58 on 12/09/2023 - trend renal function - trend electrolytes, correct as needed (7) Hypertension: Qualifiers: Hypertension type: primary hypertension Qualified Code(s): I10 - Essential (primary) hypertension Code(s): I10 - Essential (primary) hypertension Status: Chronic Assessment and Plan: - chronic, currently 109/65 - continue home medications: Metoprolol 12.5 mg b.i.d. - monitor Plan Diet: Heart healthy GI Prophylaxis: Not currently indicated DVT Prophylaxis: SCDs Lines: Peripheral Code Status: DNR Quality VTE Prophylaxis VTE prophylaxis: mechanical ordered Critical Care Time: I personally spent 35 minutes of direct patient care including (but not limited to) the physical examination, decision-making, bedside evaluation, review of medical records, review of labs and imaging, discussion with nursing staff and other providers for collaborative, critical care management of this patient. Hospitalist [facility] Advance Care Plan I have confirmed that the patient's Advanced Care Plan is present, code status is documented, or surrogate decision maker is listed in patient medical record.: Yes Medication Reconciliation I have utilized all available resources to obtain, update and review the patients current medications (includes all prescriptions, OTC, herbals, cannabis, and nutritional supplements).: Yes
--- NOTE | 2024-01-20 18:30 | ADMGEN ---
This patient, Abdulaziz Goins, was admitted to 2 Medical Room 255-. Patient/family oriented to hospital policies and general routines including ID bracelet, bed and alarms, visiting hours, pain management, procedures, bathroom and other care routines, personal items, smoking policy, room service/diet, and visiting hours. Information on how to activate the Rapid Response Team has been discussed. Patient/Family are encouraged to report perceived risks to care and to ask questions if they do not understand what they are told or what they should do.
[2024-01-20] MEDS: LACTATED RINGERS 1,000 ML 100 ML IV CONT (18:41)
[2024-01-20 22:44] LABS: Mean Corpuscular HGB Conc 32.3 g/dl (32-36); Mean Corpuscular Hemoglobin 30.7 pg (26-34); Mean Corpuscular Volume 95.1 fl (80-100); Mean Platelet Volume 10.7 fl (7.4-10.4); Platelet Count Result 192 k/mm3 (150-375); Red Blood Count 3.26 M/mm3 (4.6-6.20); Red Cell Distribution Width 13.7 % (11.5-14.5); White Blood Count 5.7 K/mm3 (4.5-10.0)
--- NOTE | 2024-01-20 22:53 | PC.NURSE ---
2216 UNABLE TO OBTAIN BP, PT LETHARGIC WITH LEFT ARM CONTRACTED, RAPID RESPONSE CALLED.
--- NOTE | 2024-01-20 22:54 | PC.NURSE ---
0470 SON CALLED TO INFORM HIM OF PATIENT TRANSFER TO IMU 206. SON STATES PT IS A DNR AND WILL BRING IN PAPERS IN THE AM
[2024-01-20 22:56] LABS: Anion Gap 4 mmol/L (4-12); Blood Urea Nitrogen 41 mg/dL (9-20); Calcium 8.7 mg/dL (8.4-10.2); Carbon Dioxide 24 mmol/L (22-30); Chloride 110 mmol/L (98-107); Estimated CRCL calculation 45 ml/min; Estimated Glomerular Filt Rate > 60; Glucose 78 mg/dL (65-110); Potassium 3.7 mmol/L (3.4-5.0); Sodium 138 mmol/L (137-145)
--- NOTE | 2024-01-20 22:56 | PC.NURSE ---
5945 REPORT GIVEN TO JIGAR CONCEPCION IN IMU. PT TO CT PER BED WITH ALEXANDRA CONCEPCION FROM IMU AND WILL TAKE PT FROM CT TO IMU
[2024-01-21] VITALS (23 sets, daily range): BP systolic 89–118; BP diastolic 43–70; PULSE 47–99; RESP 16–24; TEMP 34.1–37.9; O2SAT 92–99
[2024-01-21 00:56] LABS: Amphetamine Screen Urine Negative (Negative); Barbiturate Screen Urine Negative (Negative); Benzodiazepines Screen Urine Negative (Negative); Cannabinoid Screen Urine Negative (Negative); Cocaine Screen Urine Negative (Negative); Methadone Screen Urine Negative (Negative); Opiate Screen Urine Negative (Negative); Phencyclidine Screen Urine Negative (Negative)
[2024-01-21 02:33] LABS: Free T4 Free Thyroxine Reflex 0.95 ng/dL (0.78-2.19)
[2024-01-21] MEDS: LACTATED RINGERS 1,000 ML 100 ML IV CONT ×2 (04:48→15:29)
[2024-01-21 05:04] LABS: Basophils Percent Auto 0.4 % (0.2-1.2); Eosinophils Absolute Auto 0.1 K/mm3 (0-0.3); Eosinophils Percent Auto 0.7 % (0-4.4); Hematocrit 31.7 % (42.0-52.0); Hemoglobin 10.1 g/dL (14.0-18.0); Immature Granulocyte Absolute 0.03 K/mm3 (0.00-0.031); Immature Granulocyte Percent A 0.4 % (0-0.5); Immature Platelet Fraction Pct 4.2 % (0.9-11.2); Lymphocytes Absolute Auto 0.63 K/mm3 (0.9-3.2); Lymphocytes Percent Auto 8.8 % (18.3-44.2); Mean Corpuscular HGB Conc 31.9 g/dl (32-36); Mean Corpuscular Hemoglobin 31.7 pg (26-34); Mean Corpuscular Volume 99.4 fl (80-100); Mean Platelet Volume 11.2 fl (7.4-10.4); Monocytes Absolute Auto 0.7 K/mm3 (0.1-0.6); Monocytes Percent Auto 9.9 % (2.6-8.5); Neutrophils Absolute Auto 5.7 K/mm3 (1.3-6.7); Neutrophils Percent Auto 79.8 % (45.5-73.1); Platelet Count Result 182 k/mm3 (150-375); Red Blood Count 3.19 M/mm3 (4.6-6.20); Red Cell Distribution Width 13.9 % (11.5-14.5); White Blood Count 7.2 K/mm3 (4.5-10.0)
[2024-01-21 05:14] LABS: Alanine Aminotransferase 47 U/L (6-50); Albumin Level 3.1 g/dL (3.5-5.1); Alkaline Phosphatase 68 U/L (38-126); Anion Gap 6 mmol/L (4-12); Aspartate Amino Transferase 72 U/L (17-59); Bilirubin,Total 0.2 mg/dL (0.2-1.3); Blood Urea Nitrogen 37 mg/dL (9-20); Calcium 8.7 mg/dL (8.4-10.2); Carbon Dioxide 24 mmol/L (22-30); Chloride 110 mmol/L (98-107); Estimated CRCL calculation 38 ml/min; Estimated Glomerular Filt Rate 58; Glucose 70 mg/dL (65-110); Potassium 3.8 mmol/L (3.4-5.0); Sodium 140 mmol/L (137-145)
[2024-01-21 05:30] LABS: Anisocytosis 1+; Burr Cells 1+; Ovalocytes 1+; Platelet Estimate Slightly Decreased (Adequate); Schistocytes None Seen
[2024-01-21 08:31] LABS: Creatine Kinase 595 U/L (55-170)
[2024-01-21] MEDS: rOPINIRole HCL 0.5 MG TABLET 1.5 MG PO (08:40)
[2024-01-21] MEDS: METOPROLOL TARTRATE 12.5 MG TABLET PO (08:41)
[2024-01-21] MEDS: CARBIDOPA/LEVODOPA 25/100 MG TABLET 1 TABLET PO (08:45)
[2024-01-21] MEDS: ASPIRIN 81 MG CHEWABLE TABLET PO (08:45)
--- NOTE | 2024-01-21 12:21 | PC.NURSE ---
RN to room to assess pt, after receiving report from previous RN. RN called vest backer to room to reassess pt. Pt moans to sternal rub. Pt has right sided facial droop. Pupils equal and reactive. Pt unable to follow commands. VS BP 89/46, HR 68, R 20, T 98.1, blood sugar 85 MRI called at this time as well to see if pt was able to be scanned. MRI to send for pt and RN will accompany pt. It was reported that Dr. Armenta was just at beside, prior to RN report, with family member to discuss plan of care. MD is aware of pt's condition. 1245: RN back to assess pt. Pt opened eyes, and stated uh-uh when asked if he was in any pain.
[2024-01-21 12:45] LABS: Glucose Point of Care 85 mg/dl (65-105)
--- NOTE | 2024-01-21 17:15 | P.PNIM_ITS ---
Progress Note: A&P Assessment and Plan (1) Altered mental status: Qualifiers: Altered mental status type: somnolence Qualified Code(s): R40.0 - Somnolence Code(s): R41.82 - Altered mental status, unspecified Status: Acute Assessment and Plan: - Head CT: No acute intracranial hemorrhage or suspicious mass effect. - patient found to be hypothermic: 90.7F, bella hugger applied lethargic at bedside CT head and CTA head and neck reviewed no acute changes or large vessel occlusion MRI brain and EEG ordered neurology consulted (2) Generalized weakness: Code(s): R53.1 - Weakness Status: Acute Assessment and Plan: - UA not consitent with UTI - CXR showing no PNA - viral PCR negative - CTA head and neck unremarkable continue above workup encourage oral intake (3) Rhabdomyolysis: Qualifiers: Encounter type: initial encounter Rhabdomyolysis type: traumatic Qualified Code(s): T79.6XXA - Traumatic ischemia of muscle, initial encounter Code(s): M62.82 - Rhabdomyolysis Status: Acute Assessment and Plan: - CK 1060 - historically secondary to falls, is on statin. plan to d/c statin. - IV fluids: 2L bolus of NS, 100 mL/hr of LR - trend CK (4) Frequent falls: Code(s): R29.6 - Repeated falls Status: Chronic Assessment and Plan: - fall precautions - PT/OT evaluation for d/c planning - care coordination consulted for d/c planning son interested in placment options (5) Parkinsons disease: Qualifiers: Dyskinesia presence: unspecified whether dyskinesia Fluctuating manifestations: unspecified whether manifestations fluctuate Qualified Code(s): G20.A1 - Parkinson's disease without dyskinesia, without mention of fluctuations Code(s): G20 - Parkinson's disease Status: Chronic Assessment and Plan: - continue home medications: Carbidopa-levodopa 1 tablet q.i.d. (6) Chronic kidney disease, stage 3: Qualifiers: Chronic kidney disease stage 3 subtype: unspecified whether 3a or 3b Qualified Code(s): N18.30 - Chronic kidney disease, stage 3 unspecified Code(s): N18.30 - Chronic kidney disease, stage 3 unspecified Status: Chronic Assessment and Plan: - creatinine 1.1 and GFR >60, previously 1.2 and GFR 58 on 12/09/2023 - trend renal function - trend electrolytes, correct as needed (7) Hypertension: Qualifiers: Hypertension type: primary hypertension Qualified Code(s): I10 - Essential (primary) hypertension Code(s): I10 - Essential (primary) hypertension Status: Chronic Assessment and Plan: - chronic, currently 109/65 - continue home medications: Metoprolol 12.5 mg b.i.d. - monitor Plan Diet: Heart healthy GI Prophylaxis: Not currently indicated DVT Prophylaxis: Sq heparin Lines: Peripheral Code Status: DNR Subjective Date/time seen: 01/21/24 17:15 Interval history: patient lethargic at bedside discussed with son at bedside who noted patient has recurrent falls and admission and has had about 4 admissions this year noted he is considering placement Review of Systems Review of Systems: All systems reviewed & are unremarkable except as noted in HPI and below ROS unobtainable: Yes unobtainable due to mental status (Limited) Exam Narrative: will awaken to loud sound/repeated tapping. Does not sustain wakefulness. No asymmetry with commercial solar sales consultant/plantarflexion. pupils 2 mm bilaterally. Small abrasion to left knee. Const: General: comfortable and no acute distress Other: , male, elderly, ill-appearing HENMT: Face/Nose/Sinus: Normal nares present Mouth: Yes moist mucous membranes Eyes: General: appearance normal, both eyes and all related structures Sclera: sclerae normal Pupils: Equal, round and reactive pupils present EOM: EOMs intact bilaterally Other: Patient having difficulty following commands, unable to assess cardinal directions. Pupils are pinpoint to 2 mm. Resp: Effort & Inspection: normal respiratory effort Auscultation: clear to auscultation bilaterally Cardio: Rate: regular rate Rhythm: regular rhythm Other: S1-S2 present without murmur, rub, ectopy GI: Other: No particular expression with palpation of abdomen. Normoactive bowel sounds in all quadrants. Nondistended. Skin: General skin exam: normal color, no rashes or lesions noted and wounds noted (Small abrasion to bilateral knees) Wounds: wounds noted (Small abrasion to bilateral knees) Neuro: Cranial nerves: Yes Equal, round and reactive pupils present Other: Patient is virtually nonverbal, very somnolent and will awaken to loud sound/repeated tapping. Does not sustain wakefulness. No asymmetry with commercial solar sales consultant/plantarflexion. pupils 2 mm bilaterally. No nystagmus noted. Extrem: Other: Trace edema, symmetric Psych: Other: Flattened affect. Unable to assess further. Objective Data Vital Signs Vital Signs: Vital Signs - 24 hr 01/20/24 18:48 01/20/24 18:53 01/20/24 19:20 Temperature 90.7 F L 90.7 F L 91.4 F L Pulse Rate 54 L Respiratory Rate 18 Blood Pressure 133/77 Pulse Oximetry 99 Oxygen Delivery 01/20/24 19:39 01/20/24 20:03 01/20/24 20:17 Temperature 91.2 F L 91.8 F L 92.7 F L Pulse Rate 51 L Respiratory Rate 16 Blood Pressure 121/69 Pulse Oximetry 100 Oxygen Delivery 01/20/24 20:34 01/20/24 20:48 01/20/24 21:00 Temperature 92.6 F L 92.7 F L 92.7 F L Pulse Rate Respiratory Rate Blood Pressure Pulse Oximetry Oxygen Delivery 01/20/24 21:19 01/20/24 21:32 01/20/24 21:45 Temperature 92.9 F L 92.9 F L 93.2 F L Pulse Rate Respiratory Rate Blood Pressure Pulse Oximetry Oxygen Delivery 01/20/24 21:45 01/20/24 22:15 01/20/24 22:15 Temperature 93.2 F L 93.3 F L 93.3 F L Pulse Rate 48 L Respiratory Rate 16 Blood Pressure Pulse Oximetry 97 Oxygen Delivery 01/20/24 23:40 01/21/24 00:40 01/20/24 23:40 Temperature 96.1 F L 93.3 F L 96.1 F L Pulse Rate 72 47 L Respiratory Rate 18 22 H Blood Pressure 109/62 105/70 Pulse Oximetry 98 97 Oxygen Delivery 01/21/24 00:00 01/21/24 00:00 01/21/24 00:30 Temperature 96.4 F L 96.4 F L 96.5 F L Pulse Rate 67 Respiratory Rate 20 Blood Pressure 110/58 L Pulse Oximetry 99 Oxygen Delivery 01/21/24 00:30 01/20/24 23:40 01/21/24 01:00 Temperature 96.5 F L 96 F L Pulse Rate 69 72 Respiratory Rate 18 18 Blood Pressure 118/64 Pulse Oximetry 98 98 Oxygen Delivery Room Air 01/21/24 01:00 01/21/24 01:30 01/20/24 23:45 Temperature 96 F L 97.2 F L Pulse Rate 96 70 Respiratory Rate 18 Blood Pressure 92/53 L Pulse Oximetry 98 Oxygen Delivery 01/21/24 00:00 01/21/24 02:00 01/21/24 02:30 Temperature 97.4 F L 97.5 F L Pulse Rate 63 Respiratory Rate Blood Pressure Pulse Oximetry Oxygen Delivery 01/21/24 02:55 01/21/24 02:00 01/21/24 02:30 Temperature 97.6 F 97.4 F L 97.5 F L Pulse Rate 66 90 Respiratory Rate 20 16 Blood Pressure 103/46 L 101/59 L Pulse Oximetry 99 94 Oxygen Delivery 01/21/24 04:00 01/21/24 04:30 01/21/24 04:00 Temperature 99.5 F Pulse Rate 79 79 95 Respiratory Rate 18 18 Blood Pressure 104/43 L Pulse Oximetry 96 96 Oxygen Delivery Room Air 01/21/24 06:06 01/21/24 08:41 01/21/24 08:00 Temperature 99.8 F H Pulse Rate 79 99 76 Respiratory Rate 24 H Blood Pressure 107/52 L Pulse Oximetry 97 Oxygen Delivery 01/21/24 08:00 01/21/24 10:00 01/21/24 12:00 Temperature 98.1 F Pulse Rate 99 99 68 Respiratory Rate 20 Blood Pressure 89/46 L Pulse Oximetry 92 Oxygen Delivery 01/21/24 12:00 01/21/24 12:00 01/21/24 14:00 Temperature Pulse Rate 68 65 64 Respiratory Rate 20 Blood Pressure Pulse Oximetry 92 Oxygen Delivery Room Air 01/21/24 15:50 01/21/24 16:00 01/21/24 16:00 Temperature 98.3 F Pulse Rate 64 66 66 Respiratory Rate 20 16 Blood Pressure 99/47 L Pulse Oximetry 92 94 Oxygen Delivery Room Air Intake/Output Intake/Output: Intake & Output 01/18/24 01/19/24 01/20/24 01/21/24 23:59 23:59 23:59 23:59 Intake Total 1999 1983 Output Total 390 Balance 1999 1594 Meds/Results Medications: Active Medications Generic Name Dose Route Start Last Admin Trade Name Freq PRN Reason Stop Dose Admin Aspirin 81 mg 01/21/24 08:00 01/21/24 08:45 Aspirin 81 Mg Chewable Tablet PO 81 mg DAILY@0800 [facility] Administration Carbidopa/Levodopa 1 tablet 01/21/24 09:00 01/21/24 16:12 Carbidopa/Levodopa 25/100 Mg Tablet PO Not Given QID MARIANA Donepezil HCl 10 mg 01/21/24 18:00 01/21/24 16:12 Donepezil Hcl 10 Mg Tablet PO Not Given QPM MARIANA Lactated Ringer's 1,000 mls @ 100 mls/hr 01/20/24 17:20 01/21/24 15:29 Lr - Lactated Ringers Iv IV CONT 100 mls/hr .Q10H MARIANA Administration Metoprolol Tartrate 12.5 mg 01/21/24 09:00 01/21/24 08:41 Metoprolol Tartrate 12.5 Mg Tablet PO 12.5 mg Q12HR MARIANA Administration Ropinirole HCl 1.5 mg 01/21/24 09:00 01/21/24 16:12 Ropinirole Hcl 0.5 Mg Tablet PO Not Given QID MARIANA Tamsulosin HCl 0.4 mg 01/21/24 21:00 Tamsulosin Hcl 0.4 Mg Capsule PO QHS [facility] Radiology Results: ITS Impressions Chest X-Ray 01/20/24 14:57 IMPRESSION: 1. Mild atelectasis at right lung base. Head CT 01/20/24 15:59 Impression: No acute intracranial hemorrhage or suspicious mass effect. Head/Neck CTA 01/21/24 00:06 IMPRESSION: 1. Largely unremarkable CTA of the head and neck, as detailed above. 2. Percent stenosis per NASCET criteria within the internal carotid arteries is 0% Brain MRI 01/21/24 15:52 IMPRESSION: Scattered focal areas of cerebral and cerebellar diffusion restriction consistent with small, focal, primarily cortical infarcts, with a pattern suggestive of embolic disease. Labs Labs: Laboratory Results - last 24 hr 01/20/24 01/21/24 01/21/24 22:30 00:20 04:34 WBC 5.7 7.2 RBC 3.26 L 3.19 L Hgb 10.0 L 10.1 L Hct 31.0 L 31.7 L MCV 95.1 99.4 MCH 30.7 31.7 MCHC 32.3 31.9 L RDW 13.7 13.9 Plt Count 192 182 MPV 10.7 H 11.2 H Immature Gran % (Auto) 0.4 Neut % (Auto) 79.8 H Lymph % (Auto) 8.8 L [place] % (Auto) 9.9 H Eos % (Auto) 0.7 Baso % (Auto) 0.4 Lymph # (Auto) 0.63 L [place] # (Auto) 0.7 H Eos # (Auto) 0.1 Baso # (Auto) 0.0 Abs Immat Gran (auto) 0.03 Absolute Neuts (auto) 5.7 Absolute Nucleated RBC 0.000 Nucleated RBC % 0.0 Platelet Estimate Slightly decreased % Immature Plt Fraction 4.2 Anisocytosis 1+ Ovalocytes 1+ [place] Cells 1+ Schistocytes None seen Sodium 138 140 Potassium 3.7 3.8 Chloride 110 H 110 H Carbon Dioxide 24 24 Anion Gap 4 6 BUN 41 H 37 H Creatinine 1.00 1.20 Estim Creat Clear Calc 45 38 Estimated GFR > 60 58 L Glucose 78 70 POC Capillary Glucose Calcium 8.7 8.7 Total Bilirubin 0.2 AST 72 H ALT 47 Alkaline Phosphatase 68 Total Creatine Kinase 595 H Total Protein 6.0 L Albumin 3.1 L TSH (Reflex) 5.080 H Free T4 0.95 Urine Opiates Screen Negative Urine Methadone Screen Negative Ur Barbiturates Screen Negative Ur Phencyclidine Scrn Negative Ur Amphetamine Screen Negative U Benzodiazepines Scrn Negative Urine Cocaine Screen Negative U Cannabinoids Screen Negative 01/21/24 12:43 WBC RBC Hgb Hct MCV MCH MCHC RDW Plt Count MPV Immature Gran % (Auto) Neut % (Auto) Lymph % (Auto) [place] % (Auto) Eos % (Auto) Baso % (Auto) Lymph # (Auto) [place] # (Auto) Eos # (Auto) Baso # (Auto) Abs Immat Gran (auto) Absolute Neuts (auto) Absolute Nucleated RBC Nucleated RBC % Platelet Estimate % Immature Plt Fraction Anisocytosis Ovalocytes [place] Cells Schistocytes Sodium Potassium Chloride Carbon Dioxide Anion Gap BUN Creatinine Estim Creat Clear Calc Estimated GFR Glucose POC Capillary Glucose 85 Calcium Total Bilirubin AST ALT Alkaline Phosphatase Total Creatine Kinase Total Protein Albumin TSH (Reflex) Free T4 Urine Opiates Screen Urine Methadone Screen Ur Barbiturates Screen Ur Phencyclidine Scrn Ur Amphetamine Screen U Benzodiazepines Scrn Urine Cocaine Screen U Cannabinoids Screen Quality VTE Prophylaxis VTE prophylaxis: mechanical ordered
[2024-01-21] MEDS: HEPARIN SODIUM 5,000 UNITS/ML VIAL 5000 UNITS SUB-Q (23:12)
[2024-01-22] VITALS (18 sets, daily range): BP systolic 119–150; BP diastolic 61–77; PULSE 55–89; RESP 16–28; TEMP 36.4–38.2; O2SAT 94–100
[2024-01-22] MEDS: LACTATED RINGERS 1,000 ML 100 ML IV CONT ×3 (01:42→21:12)
[2024-01-22 03:12] LABS: Basophils Percent Auto 0.3 % (0.2-1.2); Hematocrit 30.3 % (42.0-52.0); Hemoglobin 10.1 g/dL (14.0-18.0); Immature Granulocyte Absolute 0.06 K/mm3 (0.00-0.031); Immature Granulocyte Percent A 0.8 % (0-0.5); Lymphocytes Absolute Auto 1.04 K/mm3 (0.9-3.2); Mean Corpuscular HGB Conc 33.3 g/dl (32-36); Mean Corpuscular Hemoglobin 31.6 pg (26-34); Mean Corpuscular Volume 94.7 fl (80-100); Mean Platelet Volume 10.8 fl (7.4-10.4); Monocytes Percent Auto 13.5 % (2.6-8.5); Neutrophils Absolute Auto 5.3 K/mm3 (1.3-6.7); Neutrophils Percent Auto 71.4 % (45.5-73.1); Platelet Count Result 169 k/mm3 (150-375); Red Cell Distribution Width 14.5 % (11.5-14.5); White Blood Count 7.4 K/mm3 (4.5-10.0)
[2024-01-22 03:53] LABS: Alanine Aminotransferase 80 U/L (6-50); Albumin Level 3.3 g/dL (3.5-5.1); Alkaline Phosphatase 64 U/L (38-126); Anion Gap 5 mmol/L (4-12); Aspartate Amino Transferase 101 U/L (17-59); Bilirubin,Total 0.4 mg/dL (0.2-1.3); Blood Urea Nitrogen 31 mg/dL (9-20); Calcium 8.9 mg/dL (8.4-10.2); Carbon Dioxide 25 mmol/L (22-30); Chloride 110 mmol/L (98-107); Creatine Kinase 2947 U/L (55-170); Estimated CRCL calculation 33 ml/min; Estimated Glomerular Filt Rate 48; Glucose 81 mg/dL (65-110); Magnesium 1.9 mg/dL (1.6-2.3); Potassium 3.4 mmol/L (3.4-5.0); Sodium 140 mmol/L (137-145)
[2024-01-22] MEDS: HEPARIN SODIUM 5,000 UNITS/ML VIAL 5000 UNITS SUB-Q ×3 (05:50→21:09)
--- NOTE | 2024-01-22 10:06 | PCPTNOTE ---
Attempted PT evaluation, pt minimally responsive/not safe to participate with skilled therapy at this time. Will follow.
--- NOTE | 2024-01-22 10:18 | PCOTNOTE ---
Attempted OT evaluation, pt minimally responsive/not safe to participate with skilled therapy at this time. Will follow.
--- NOTE | 2024-01-22 13:03 | PM.IMPN ---
Progress Note: A&P Assessment and Plan (1) Altered mental status: Qualifiers: Altered mental status type: somnolence Qualified Code(s): R40.0 - Somnolence Code(s): R41.82 - Altered mental status, unspecified Status: Acute Assessment and Plan: - Head CT: No acute intracranial hemorrhage or suspicious mass effect. - patient found to be hypothermic: 90.7F, bear hugger applied lethargic at bedside CT head and CTA head and neck reviewed no acute changes or large vessel occlusion MRI brain showed scattered focal areas of cerebral and cerebellar stroke suggestive of embolic disease EEG and ECHO pending neurology consulted Patient still lethargic and NPO as he is not responsive discussed with his son about hospice care and he noted he will discuss with family and revert back to me rectal aspirin in the meantime. PT/OT/ST (2) Generalized weakness: Code(s): R53.1 - Weakness Status: Acute Assessment and Plan: - UA not consitent with UTI - CXR showing no PNA - viral PCR negative - CTA head and neck unremarkable continue above workup encourage oral intake (3) Rhabdomyolysis: Qualifiers: Encounter type: initial encounter Rhabdomyolysis type: traumatic Qualified Code(s): T79.6XXA - Traumatic ischemia of muscle, initial encounter Code(s): M62.82 - Rhabdomyolysis Status: Acute Assessment and Plan: - CK 1060 - historically secondary to falls, is on statin. plan to d/c statin. - IV fluids: 2L bolus of NS, 100 mL/hr of LR - trend CK (4) Frequent falls: Code(s): R29.6 - Repeated falls Status: Chronic Assessment and Plan: - fall precautions - PT/OT evaluation for d/c planning - care coordination consulted for d/c planning son interested in placment options (5) Parkinsons disease: Qualifiers: Dyskinesia presence: unspecified whether dyskinesia Fluctuating manifestations: unspecified whether manifestations fluctuate Qualified Code(s): G20.A1 - Parkinson's disease without dyskinesia, without mention of fluctuations Code(s): G20 - Parkinson's disease Status: Chronic Assessment and Plan: - continue home medications: Carbidopa-levodopa 1 tablet q.i.d. (6) Chronic kidney disease, stage 3: Qualifiers: Chronic kidney disease stage 3 subtype: unspecified whether 3a or 3b Qualified Code(s): N18.30 - Chronic kidney disease, stage 3 unspecified Code(s): N18.30 - Chronic kidney disease, stage 3 unspecified Status: Chronic Assessment and Plan: - creatinine 1.1 and GFR >60, previously 1.2 and GFR 58 on 12/09/2023 - trend renal function - trend electrolytes, correct as needed (7) Hypertension: Qualifiers: Hypertension type: primary hypertension Qualified Code(s): I10 - Essential (primary) hypertension Code(s): I10 - Essential (primary) hypertension Status: Chronic Assessment and Plan: - chronic, currently 109/65 - continue home medications: Metoprolol 12.5 mg b.i.d. - monitor Plan Diet: Heart healthy DVT Prophylaxis: Sq heparin Lines: Peripheral Code Status: DNR Subjective Date/time seen: 01/22/24 13:03 Interval history: patient lethargic at bedside discussed with son at bedside who noted patient has recurrent falls and admission and has had about 4 admissions this year noted he is considering placement Review of Systems Review of Systems: All systems reviewed & are unremarkable except as noted in HPI and below ROS unobtainable: Yes unobtainable due to mental status (Limited) Exam Narrative: will awaken to loud sound/repeated tapping. Does not sustain wakefulness. No asymmetry with balance bridge assembler/plantarflexion. pupils 2 mm bilaterally. Small abrasion to left knee. Const: General: comfortable and no acute distress Other: , male, elderly, ill-appearing HENMT: Face/Nose/Sinus: Normal nares present Mouth: Yes moist mucous membranes Eyes: General: appearance normal, both eyes and all related structures Sclera: sclerae normal Pupils: Equal, round and reactive pupils present EOM: EOMs intact bilaterally Other: Patient having difficulty following commands, unable to assess cardinal directions. Pupils are pinpoint to 2 mm. Resp: Effort & Inspection: normal respiratory effort Auscultation: clear to auscultation bilaterally Cardio: Rate: regular rate Rhythm: regular rhythm Other: S1-S2 present without murmur, rub, ectopy GI: Other: No particular expression with palpation of abdomen. Normoactive bowel sounds in all quadrants. Nondistended. Skin: General skin exam: normal color, no rashes or lesions noted and wounds noted (Small abrasion to bilateral knees) Wounds: wounds noted (Small abrasion to bilateral knees) Neuro: Cranial nerves: Yes Equal, round and reactive pupils present Other: Patient is virtually nonverbal, very somnolent and will awaken to loud sound/repeated tapping. Does not sustain wakefulness. No asymmetry with balance bridge assembler/plantarflexion. pupils 2 mm bilaterally. No nystagmus noted. Extrem: Other: Trace edema, symmetric Psych: Other: Flattened affect. Unable to assess further. Objective Data Vital Signs Vital Signs: Vital Signs - 24 hr 01/21/24 14:00 01/21/24 15:50 01/21/24 16:00 Temperature 98.3 F Pulse Rate 64 64 66 Respiratory Rate 20 16 Blood Pressure 99/47 L Pulse Oximetry 92 94 Oxygen Delivery Room Air 01/21/24 16:00 01/21/24 18:00 01/21/24 19:49 Temperature 100.2 F H Pulse Rate 66 62 69 Respiratory Rate 18 Blood Pressure 106/52 L Pulse Oximetry 95 Oxygen Delivery 01/22/24 00:00 01/21/24 20:00 01/21/24 22:00 Temperature 100.7 F H Pulse Rate 74 66 73 Respiratory Rate 22 H Blood Pressure 119/62 Pulse Oximetry 97 Oxygen Delivery 01/22/24 00:00 01/21/24 21:00 01/22/24 00:10 Temperature Pulse Rate 89 69 74 Respiratory Rate 18 22 H Blood Pressure Pulse Oximetry 95 97 Oxygen Delivery Room Air Room Air 01/22/24 01:37 01/21/24 21:00 01/22/24 02:57 Temperature 99.9 F H Pulse Rate 73 72 Respiratory Rate Blood Pressure Pulse Oximetry Oxygen Delivery 01/22/24 04:00 01/22/24 04:00 01/22/24 04:00 Temperature 99.6 F Pulse Rate 64 66 66 Respiratory Rate 24 H 24 H Blood Pressure 133/61 Pulse Oximetry 94 94 Oxygen Delivery Room Air 01/22/24 05:53 01/22/24 08:00 01/22/24 08:00 Temperature 97.6 F Pulse Rate 65 69 69 Respiratory Rate 24 H 24 H Blood Pressure 145/68 H Pulse Oximetry 95 95 Oxygen Delivery Room Air 01/22/24 08:00 01/22/24 10:00 01/22/24 12:00 Temperature 98.5 F Pulse Rate 60 65 68 Respiratory Rate 28 H Blood Pressure 150/70 H Pulse Oximetry 94 Oxygen Delivery 01/22/24 12:00 01/22/24 12:00 Temperature Pulse Rate 68 67 Respiratory Rate 28 H Blood Pressure Pulse Oximetry 94 Oxygen Delivery Room Air Intake/Output Intake/Output: Intake & Output 01/19/24 01/20/24 01/21/24 01/22/24 23:59 23:59 23:59 23:59 Intake Total 1999 1983 1994 Output Total 840 550 Balance 1999 7269 [id number] Meds/Results Medications: Active Medications Generic Name Dose Route Start Last Admin Trade Name Freq PRN Reason Stop Dose Admin Acetaminophen 650 mg 01/22/24 01:01 Acetaminophen 650 Mg Suppository RECTAL Q6H PRN Mild Pain (1-3) or Fever Aspirin 81 mg 01/21/24 08:00 01/22/24 12:03 Aspirin 81 Mg Chewable Tablet PO Not Given DAILY@0800 MARIANA Carbidopa/Levodopa 1 tablet 01/21/24 09:00 01/22/24 12:03 Carbidopa/Levodopa 25/100 Mg Tablet PO Not Given QID MARIANA Donepezil HCl 10 mg 01/21/24 18:00 01/21/24 16:12 Donepezil Hcl 10 Mg Tablet PO Not Given QPM MRAIANA Heparin Sodium (Porcine) 5,000 units 01/21/24 22:00 01/22/24 05:50 Heparin Sodium 5,000 Units/Ml Vial SUB-Q 5,000 units Q8HR MARIANA Administration Lactated Ringer's 1,000 mls @ 100 mls/hr 01/20/24 17:20 01/22/24 11:39 Lr - Lactated Ringers Iv IV CONT 100 mls/hr .Q10H MARIANA Administration Metoprolol Tartrate 12.5 mg 01/21/24 09:00 01/22/24 12:03 Metoprolol Tartrate 12.5 Mg Tablet PO Not Given Q12HR MARIANA Perflutren Lipid Microsphere 0 ml 01/21/24 17:18 Perflutren Lipid Microspheres 1.5 Ml Vial Diluted To 10 Ml Total Volume IV PUSH 01/24/24 17:18 ONCE PRN adequate visualization Protocol Ropinirole HCl 1.5 mg 01/21/24 09:00 01/22/24 12:03 Ropinirole Hcl 0.5 Mg Tablet PO Not Given QID MARIANA Tamsulosin HCl 0.4 mg 01/21/24 21:00 01/21/24 21:00 Tamsulosin Hcl 0.4 Mg Capsule PO Not Given QHS [facility] Radiology Results: ITS Impressions Head CT 01/20/24 15:59 Impression: No acute intracranial hemorrhage or suspicious mass effect. Head/Neck CTA 01/21/24 00:06 IMPRESSION: 1. Largely unremarkable CTA of the head and neck, as detailed above. 2. Percent stenosis per NASCET criteria within the internal carotid arteries is 0% Brain MRI 01/21/24 15:52 IMPRESSION: Scattered focal areas of cerebral and cerebellar diffusion restriction consistent with small, focal, primarily cortical infarcts, with a pattern suggestive of embolic disease. Chest X-Ray 01/22/24 09:11 Impression: Minimal bibasilar pulmonary edema versus possibly pneumonia. Stable cardiomegaly. Labs Labs: Laboratory Results - last 24 hr 01/22/24 01/22/24 02:53 02:53 WBC 7.4 RBC 3.20 L Hgb 10.1 L Hct 30.3 L MCV 94.7 MCH 31.6 MCHC 33.3 RDW 14.5 Plt Count 169 MPV 10.8 H Immature Gran % (Auto) 0.8 H Neut % (Auto) 71.4 Lymph % (Auto) 14.0 L [place] % (Auto) 13.5 H Eos % (Auto) 0.0 Baso % (Auto) 0.3 Lymph # (Auto) 1.04 [place] # (Auto) 1.0 H Eos # (Auto) 0.0 Baso # (Auto) 0.0 Abs Immat Gran (auto) 0.06 H Absolute Neuts (auto) 5.3 Absolute Nucleated RBC 0.000 Nucleated RBC % 0.0 Sodium 140 Potassium 3.4 Chloride 110 H Carbon Dioxide 25 Anion Gap 5 BUN 31 H Creatinine 1.40 H Estim Creat Clear Calc 33 Estimated GFR 48 L Glucose 81 Calcium 8.9 Magnesium 1.9 Total Bilirubin 0.4 AST 101 H ALT 80 H Alkaline Phosphatase 64 Total Creatine Kinase Cancelled 2947 H Total Protein 6.0 L Albumin 3.3 L Quality VTE Prophylaxis VTE prophylaxis: mechanical ordered
--- NOTE | 2024-01-22 14:46 | P.CONNEU_ITS ---
Assessment and Plan Assessment and plan (1) Neurocognitive disorder: Code(s): R41.9 - Unspecified symptoms and signs involving cognitive functions and awareness Status: Acute Plan while I was examining the patient his friend walked into the room and he did respond to him appropriately with very low volume speech considering the problems will benefit from the continuation the medication as search and the supportive care routine EEG can be obtained Consult date: 01/22/24 HPI: Abdulaziz Goins is a 84 year old male admitted to the hospital for the complaints of generalized weakness with ongoing history of 1. Parkinson's disease 2. Dementia 3. Hyperlipidemia 4. Cold-like symptoms for the last several days with increasing hallucinations visual in nature. Indications the time of admission included aspirin 81mg daily, donepezil 10mg daily, metoprolol 12.5mg twice a day and rosuvastatin 10mg at night. Not allergic to medication, has history of ch ronic kidney disease stage 3 GERD, hypertension, prostatic cancer lb, small- bowel obstruction with strangulation, history of TUR of prostate history of smoking 3 packs per day since smoking 60 cigarettes per day and history of 11 years smoking but former smoker currently alcohol 7 drinks per week initial exam in the emergency room with chronically ill-appearing in no obvious acute distress vital signs normal with pulse rate of 48 CBC normal BMP with this BUN of 40 master scan negative, chest x-ray with mild atelectasis of the right lung base CT of the head negative for the bleed or hydrocephalus, unremarkable CTA of the head and neck MRI of the brain with scattered focal areas of restricted diffusion and small cortical infarct. Review of Systems Review of Systems: All systems reviewed & are unremarkable except as noted in HPI and below PMFSH Past Medical History Medical History Benign prostatic hyperplasia Chronic anemia Chronic kidney disease, stage 3 Deep venous thrombosis Gastroesophageal reflux disease Hyperlipidemia Hypertension Neurocognitive disorder Overweight (BMI 25.0-29.9) Parkinsons disease Prostate cancer Protein calorie malnutrition Small bowel obstruction with strangulation or infarction Surgical History Surgical History History of colonoscopy with polypectomy History of transurethral resection of prostate PEG (percutaneous endoscopic gastrostomy) status Family History Family History Father Family history of cardiovascular disease Family history of elevated blood lipids Diabetes mellitus Suicide Mother Family history of malignant neoplasm of breast in first degree relative Other Hypertension Social History Social History Social History: Surrogate medical decision maker: Jc Gions, denis. Code status: Smoking packs per day: 3 Smoking cigarettes per day: 60.0 Years smoked: 11 Smoking pack-years: 33.00 Smoking status: Former smoker Tobacco type: cigarettes Second hand tobacco smoke exposure: No Alcohol intake: never Drinks per week: 7 Alcohol use details: Rare alcohol use. Substance use: never Substance use type: does not use Do You Feel Safe in your Home?: No Lack of Transportation: No Lack of Food: Never True Current Housing: I Have Housing Concerned About Future Housing: No Difficulty Paying Gas/Electric Bills: No Difficulty Paying for Meds: No Currently Unemployed: No Education: High School Diploma/GED Difficulty w/ Childcare or Family Care: No Living arrangements: alone Additional living arrangements comments: son visits often; neighbor Torrey checks on him; patient has life alert Additional occupation/education comments: Worked in the [employer] and for the [employer] Spiritual care concerns: No Meds Home Medications and Allergies Home Medications Medication Instructions Recorded Confirmed Type tamsulosin 0.4 mg capsule 0.4 mg PO QHS #30 caps 12/31/22 01/20/24 Rx aspirin 81 mg chewable tablet 81 mg PO DAILY 04/27/23 01/20/24 History donepezil 10 mg tablet (Aricept) 10 mg PO DAILY 04/27/23 01/20/24 History metoprolol tartrate 25 mg tablet 12.5 mg PO BID 06/15/23 01/20/24 History rosuvastatin 10 mg tablet 10 mg PO HS 07/29/23 01/20/24 History carbidopa 25 mg-levodopa 100 mg 1 tablet PO QID #120 tabs 12/28/23 01/20/24 Rx tablet ropinirole 0.5 mg tablet 1.5 mg PO QID 01/20/24 01/20/24 History Allergies Allergy/AdvReac Type Severity Reaction Status Date / Time No Known Allergies Allergy Verified 01/20/24 19:40 Vital Signs Vital Signs - 24 hr 01/21/24 15:50 01/21/24 16:00 01/21/24 16:00 Temperature 36.8 C Pulse Rate 64 66 66 Respiratory Rate 20 16 Blood Pressure 99/47 L Pulse Oximetry 92 94 Oxygen Delivery Room Air 01/21/24 18:00 01/21/24 19:49 01/22/24 00:00 Temperature 37.9 C H 38.2 C H Pulse Rate 62 69 74 Respiratory Rate 18 22 H Blood Pressure 106/52 L 119/62 Pulse Oximetry 95 97 Oxygen Delivery 01/21/24 20:00 01/21/24 22:00 01/22/24 00:00 Temperature Pulse Rate 66 73 89 Respiratory Rate Blood Pressure Pulse Oximetry Oxygen Delivery 01/21/24 21:00 01/22/24 00:10 01/22/24 01:37 Temperature Pulse Rate 69 74 73 Respiratory Rate 18 22 H Blood Pressure Pulse Oximetry 95 97 Oxygen Delivery Room Air Room Air 01/21/24 21:00 01/22/24 02:57 01/22/24 04:00 Temperature 37.7 C H Pulse Rate 72 64 Respiratory Rate Blood Pressure Pulse Oximetry Oxygen Delivery 01/22/24 04:00 01/22/24 04:00 01/22/24 05:53 Temperature 37.6 C Pulse Rate 66 66 65 Respiratory Rate 24 H 24 H Blood Pressure 133/61 Pulse Oximetry 94 94 Oxygen Delivery Room Air 01/22/24 08:00 01/22/24 08:00 01/22/24 08:00 Temperature 36.4 C Pulse Rate 69 69 60 Respiratory Rate 24 H 24 H Blood Pressure 145/68 H Pulse Oximetry 95 95 Oxygen Delivery Room Air 01/22/24 10:00 01/22/24 12:00 01/22/24 12:00 Temperature 36.9 C Pulse Rate 65 68 68 Respiratory Rate 28 H 28 H Blood Pressure 150/70 H Pulse Oximetry 94 94 Oxygen Delivery Room Air 01/22/24 12:00 01/22/24 14:00 Temperature Pulse Rate 67 68 Respiratory Rate Blood Pressure Pulse Oximetry Oxygen Delivery Exam Narrative: Head normocephalic ear nose throat exam normal neck without any bruit or meningeal irritation respiration clear on auscultation abdomen soft nontender h is skin clear motor examination revealed him to be nonverbal arousable extraocular movements spontaneously full no spontaneous nystagmus able to move the upper extremities reflexes sluggish and plantars question of Results Labs 01/22/24 02:53 01/22/24 02:53 Labs: Short CBC 01/22/24 Range/Units 02:53 WBC 7.4 (4.5-10.0) K/mm3 Hgb 10.1 L (14.0-18.0) g/dL Hct 30.3 L (42.0-52.0) % Plt Count 169 (150-375) k/mm3 BMP 01/22/24 02:53 Sodium 140 Potassium 3.4 Chloride 110 H Carbon Dioxide 25 BUN 31 H Creatinine 1.40 H Glucose 81 Calcium 8.9 Cardiac Enzymes 01/22/24 01/22/24 Range/Units 02:53 02:53 Total Creatine Kinase Cancelled 2947 H Liver Function 01/22/24 Range/Units 02:53 Total Bilirubin 0.4 (0.2-1.3) mg/dL AST 101 H (17-59) U/L ALT 80 H (6-50) U/L Alkaline Phosphatase 64 (38-126) U/L Albumin 3.3 L (3.5-5.1) g/dL
[2024-01-22] MEDS: ASPIRIN 300 MG SUPPOSITORY RECTAL (15:16)
[2024-01-23] VITALS (19 sets, daily range): BP systolic 119–164; BP diastolic 58–90; PULSE 57–71; RESP 20; TEMP 36.7–37; O2SAT 94–98
--- NOTE | 2024-01-23 | ECHO_ITS ---
Patient Info Name: Abdulaziz Goins Age: 84 years : 1940 Gender: Male Ht: 67 in Wt: 188 lbs BSA: 2.03 m2 HR: 61 bpm BP: 141 / 79 mmHg Heart Rhythm: Sinus Rhythm Technical Quality: Good Exam Date: 01/23/2024 2:50 PM Exam Location: Echo Lab Patient Status: Inpatient Admit Date: 01/23/2024 Staff Ordering Physician: Kaitlin Armenta MD Nutritional Services Host: Lisa Miranda RDCS Attending Provider: Harjit Michele MD Exam Type: CA echo doppler w bubble study Study Info Indications - stroke Complete two-dimensional, color flow and Doppler transthoracic echocardiogram is performed with agitated saline. Summary 1. Mild concentric LVH with normal systolic function and grade 1 diastolic noncompliance. 2. Mildly dilated left atrium. 3. Sclerotic aortic valve which is nonstenotic. 4. Agitated saline contrast injection demonstrates no intracardiac shunt. Left Ventricle Left ventricular chamber dimension is normal. Left ventricular systolic function is normal, estimated at 60-65%. There is mild concentric increased left ventricular wall thickness. The left ventricular diastolic function is grade I diastolic dysfunction. Right Ventricle Right ventricular chamber dimension is normal. Left Atria Left atrial chamber dimension is mildly enlarged. Right Atria Right atrial chamber dimension is normal. Atrial Septum Intact interatrial septum visualized by agitated saline imaging. Aortic Valve The aortic valve is trileaflet. There is mild aortic valve sclerosis. Pulmonic Valve The pulmonic valve is not well visualized. Mitral Valve The mitral valve has normal leaflets. The mitral valve annulus is moderately calcified. Tricuspid Valve The tricuspid valve leaflets are normal. Pericardium/Pleural The pericardium appears normal. Aorta The aortic root size at the sinus of Valsalva is normal. Left Ventricular Outflow Tract Name Value Normal LVOT 2D LVOT Diameter 1.9 cm LVOT Doppler LVOT Peak Gradient 5 mmHg LVOT Mean Gradient 3 mmHg LVOT VTI 26 cm LVOT VTI/AV VTI Ratio 1.0 LVOT Stroke Volume 77 ml LVOT CO 5.0 l/min LVOT CI 2.5 l/min/m2 Mitral Valve Name Value Normal MV Doppler MV Peak Gradient 11 mmHg MV Mean Gradient 4 mmHg MV Area (Cont Eq VTI) 1.5 cm2 Tricuspid Valve Name Value Normal TV Regurgitation Doppler TR Peak Velocity 199 cm/s TR Peak Gradient 8 mmHg Estimated PAP/RSVP RA Pressure 10 mmHg <=5 PA Systolic Pressure 26 mmHg <36 RV Systolic Pressure 26 mmHg <36 Aortic Valve Name Value Normal AV Doppler AV Peak Velocity 137 cm/s AV Peak Gradient 7 mmHg AV Mean Gradient 4 mmHg AV VTI 27 cm AV Area (Cont Eq VTI) 2.9 cm2 >=3.0 AV Area (Cont Eq Gus) 2.4 cm2 AV Regurgitation 2D LVOT Area 3.0 cm2 Ventricles Name Value Normal LV Dimensions 2D/MM IVS Diastolic Thickness (2D) 1.2 cm 0.6-1.0 LVID Diastole (2D) 5.3 cm 4.2-5.8 LVIW Diastolic Thickness (2D) 1.3 cm 0.6-1.0 LVID Systole (2D) 3.4 cm 2.5-4.0 LVOT Diameter 1.9 cm LV Mass (2D Cubed) 278.67 g 88.00-224.00 LV Mass Index (2D Cubed) 137 g/m2 49-115 Relative Wall Thickness (2D) 0.50 LV Fractional Shortening/Ejection Fraction 2D/MM LV Fractional Shortening (2D) 36 % 25-43 LV EF (2D Teicholz) 66 % 52-72 LV Diastolic Volume (4C MOD) 124 ml LV EF (4C MOD) 53 % LV Diastolic Volume (2C MOD) 154 ml LV EF (2C MOD) 70 % LV Diastolic Volume (BP MOD) 141 ml 62-150 LV Diastolic Volume Index (BP MOD) 69 ml/m2 34-74 LV Systolic Volume (BP MOD) 52 ml 21-61 LV Systolic Volume Index (BP MOD) 26 ml/m2 11-31 LV EF (BP MOD) 63 % 52-72 LV Diastolic Length (4C) 8.8 cm LV Systolic Length (4C) 6.9 cm LV Stroke Volume (4C MOD) 66 ml Atria Name Value Normal LA Dimensions LA Volume (4C A-L) 47 ml LA Volume (BP A-L) 60 ml RA Dimensions RA Area (4C) 10.8 cm2 <=18.0 Report Signatures
[2024-01-23 05:15] LABS: Basophils Absolute Auto 0.1 K/mm3 (0.0-0.1); Basophils Percent Auto 0.5 % (0.2-1.2); Eosinophils Percent Auto 0.3 % (0-4.4); Hematocrit 29.3 % (42.0-52.0); Hemoglobin 9.7 g/dL (14.0-18.0); Immature Granulocyte Absolute 0.05 K/mm3 (0.00-0.031); Immature Granulocyte Percent A 0.5 % (0-0.5); Lymphocytes Absolute Auto 1.18 K/mm3 (0.9-3.2); Lymphocytes Percent Auto 11.5 % (18.3-44.2); Mean Corpuscular HGB Conc 33.1 g/dl (32-36); Mean Corpuscular Hemoglobin 31.4 pg (26-34); Mean Corpuscular Volume 94.8 fl (80-100); Mean Platelet Volume 10.5 fl (7.4-10.4); Monocytes Percent Auto 10.1 % (2.6-8.5); Neutrophils Absolute Auto 7.9 K/mm3 (1.3-6.7); Neutrophils Percent Auto 77.1 % (45.5-73.1); Platelet Count Result 153 k/mm3 (150-375); Red Blood Count 3.09 M/mm3 (4.6-6.20); Red Cell Distribution Width 14.4 % (11.5-14.5); White Blood Count 10.3 K/mm3 (4.5-10.0)
[2024-01-23] MEDS: HEPARIN SODIUM 5,000 UNITS/ML VIAL 5000 UNITS SUB-Q ×3 (05:25→23:58)
[2024-01-23 05:34] LABS: Alanine Aminotransferase 91 U/L (6-50); Albumin Level 3.1 g/dL (3.5-5.1); Alkaline Phosphatase 62 U/L (38-126); Anion Gap 3 mmol/L (4-12); Aspartate Amino Transferase 133 U/L (17-59); Bilirubin,Total 0.8 mg/dL (0.2-1.3); Blood Urea Nitrogen 24 mg/dL (9-20); Calcium 8.5 mg/dL (8.4-10.2); Carbon Dioxide 28 mmol/L (22-30); Chloride 106 mmol/L (98-107); Estimated CRCL calculation 45 ml/min; Estimated Glomerular Filt Rate > 60; Glucose 81 mg/dL (65-110); Magnesium 1.8 mg/dL (1.6-2.3); Potassium 3.6 mmol/L (3.4-5.0); Sodium 137 mmol/L (137-145)
[2024-01-23 05:42] LABS: Creatine Kinase 3173 U/L (55-170)
[2024-01-23] MEDS: LACTATED RINGERS 1,000 ML 100 ML IV CONT ×2 (07:20→15:31)
--- NOTE | 2024-01-23 11:05 | PC.NURSE ---
Drowsy but arousable, lying in bed. Oriented to person and place at this time. Vital signs remains stable. library monitor remains on and functioning. Denies pain or discomfort at this time. Escalante catheter remains clean, dry and draining laury colored urine. Discussed plan of care including plan for EEG (already completed), and ECHO. Shakes head indicating understanding at this time. No acute distress noted at this time. MD at bedside at this time, and states that he would like speech therapy to see patient. Verbalized understanding at this time.
[2024-01-23 16:59] LABS: Total Triiodothyronine (T3) 0.98 NG/ML (0.97-1.69)
--- NOTE | 2024-01-23 18:04 | PC.NURSE ---
Refusing to allow this RN to place NG tube at this time. Discussed with patient and family member that the tube is ordered so that patient can receive medications and nutrition, still refuses to allow the NG to be placed.
--- NOTE | 2024-01-23 18:11 | P.PNIM_ITS ---
Progress Note: A&P Assessment and Plan (1) Altered mental status: Qualifiers: Altered mental status type: somnolence Qualified Code(s): R40.0 - Somnolence Code(s): R41.82 - Altered mental status, unspecified Status: Acute Assessment and Plan: - Head CT: No acute intracranial hemorrhage or suspicious mass effect. - patient found to be hypothermic: 90.7F, bear hugger applied lethargic at bedside CT head and CTA head and neck reviewed no acute changes or large vessel occlusion MRI brain showed scattered focal areas of cerebral and cerebellar stroke suggestive of embolic disease ECHO showed EF 60-65% and no regional wall motion abnormalities, neurology noted no need for CH[facility]STI EEG and ECHO pending neurology consulted patient NPO until evaluated by ST NG tube insertion for feeding in the meantime discussed with son and patient at bedside and they consented Son wants to hold hospice discussion for now and re-evalaute in a couple of date Lipid profile, A1c pending Continue Aspirin. Statin on hold cue to Rhabdomyolysis PT/OT/ST Neurology following (2) Generalized weakness: Code(s): R53.1 - Weakness Status: Acute Assessment and Plan: - UA not consitent with UTI - CXR showing no PNA - viral PCR negative - CTA head and neck unremarkable improvign (3) Rhabdomyolysis: Qualifiers: Encounter type: initial encounter Rhabdomyolysis type: traumatic Qualified Code(s): T79.6XXA - Traumatic ischemia of muscle, initial encounter Code(s): M62.82 - Rhabdomyolysis Status: Acute Assessment and Plan: - CK 1060 - historically secondary to falls, is on statin. plan to d/c statin. - Continue IVf and monitor CK (4) Frequent falls: Code(s): R29.6 - Repeated falls Status: Chronic Assessment and Plan: - fall precautions - PT/OT evaluation for d/c planning - care coordination consulted for d/c planning son interested in placment options (5) Parkinsons disease: Qualifiers: Dyskinesia presence: unspecified whether dyskinesia Fluctuating manifestations: unspecified whether manifestations fluctuate Qualified Code(s): G20.A1 - Parkinson's disease without dyskinesia, without mention of fluctuations Code(s): G20 - Parkinson's disease Status: Chronic Assessment and Plan: - continue home medications: Carbidopa-levodopa 2 tablet q.i.d. discussed adjustment with neurology (6) Chronic kidney disease, stage 3: Qualifiers: Chronic kidney disease stage 3 subtype: unspecified whether 3a or 3b Qualified Code(s): N18.30 - Chronic kidney disease, stage 3 unspecified Code(s): N18.30 - Chronic kidney disease, stage 3 unspecified Status: Chronic Assessment and Plan: - creatinine 1.1 and GFR >60, previously 1.2 and GFR 58 on 12/09/2023 - trend renal function - trend electrolytes, correct as needed (7) Hypertension: Qualifiers: Hypertension type: primary hypertension Qualified Code(s): I10 - Es sential (primary) hypertension Code(s): I10 - Essential (primary) hypertension Status: Chronic Assessment and Plan: - chronic, currently 109/65 - continue home medications: Metoprolol 12.5 mg b.i.d. - monitor Plan Diet: Heart healthy DVT Prophylaxis: Sq heparin Lines: Peripheral Code Status: DNR Son will reconsider goals of care in the next couple of days Subjective Date/time seen: 01/23/24 18:11 Interval history: patient awake today and interacting although hard to understand at times Discussed with neurology plan is to stop Requip, and increased Carbidopa to 2 tabs qid. Start Tube feeds today pending ST eval tomorrow Review of Systems Review of Systems: All systems reviewed & are unremarkable except as noted in HPI and below ROS unobtainable: Yes unobtainable due to mental status (Limited) Exam Narrative: will awaken to loud sound/repeated tapping. Does not sustain wakefulness. No asymmetry with potato seed cutter/plantarflexion. pupils 2 mm bilaterally. Small abrasion to left knee. Const: General: comfortable and no acute distress Other: , male, elderly, ill-appearing HENMT: Face/Nose/Sinus: Normal nares present Mouth: Yes moist mucous membranes Eyes: General: appearance normal, both eyes and all related structures Sclera: sclerae normal Pupils: Equal, round and reactive pupils present EOM: EOMs intact bilaterally Other: Patient having difficulty following commands, unable to assess cardinal directions. Pupils are pinpoint to 2 mm. Resp: Effort & Inspection: normal respiratory effort Auscultation: clear to auscultation bilaterally Cardio: Rate: regular rate Rhythm: regular rhythm Other: S1-S2 present without murmur, rub, ectopy GI: Other: No particular expression with palpation of abdomen. Normoactive bowel sounds in all quadrants. Nondistended. Skin: General skin exam: normal color, no rashes or lesions noted and wounds noted (Small abrasion to bilateral knees) Wounds: wounds noted (Small abrasion to bilateral knees) Neuro: Cranial nerves: Yes Equal, round and reactive pupils present Other: Patient is virtually nonverbal, very somnolent and will awaken to loud sound/repeated tapping. Does not sustain wakefulness. No asymmetry with potato seed cutter/plantarflexion. pupils 2 mm bilaterally. No nystagmus noted. Extrem: Other: Trace edema, symmetric Psych: Other: Flattened affect. Unable to assess further. Objective Data Vital Signs Vital Signs: Vital Signs - 24 hr 01/22/24 19:49 01/22/24 21:08 01/22/24 20:00 Temperature 98.6 F Pulse Rate 67 64 67 Respiratory Rate 20 20 Blood Pressure 149/71 H Pulse Oximetry 97 97 Oxygen Delivery Room Air 01/22/24 20:00 01/22/24 22:00 01/22/24 23:10 Temperature 98.9 F Pulse Rate 63 65 71 Respiratory Rate 20 Blood Pressure 138/68 Pulse Oximetry 98 Oxygen Delivery 01/22/24 23:49 01/23/24 00:00 01/23/24 01:23 Temperature Pulse Rate 71 71 67 Respiratory Rate 20 Blood Pressure Pulse Oximetry 98 Oxygen Delivery Room Air 01/23/24 04:00 01/23/24 05:36 01/23/24 03:20 Temperature 98.3 F Pulse Rate 67 58 L 58 L Respiratory Rate 20 20 Blood Pressure 141/79 H Pulse Oximetry 98 98 Oxygen Delivery Room Air 01/23/24 06:00 01/23/24 07:18 01/23/24 08:00 Temperature 98.3 F Pulse Rate 61 57 L 59 L Respiratory Rate 20 20 Blood Pressure 119/58 L Pulse Oximetry 96 96 Oxygen Delivery Room Air 01/23/24 08:00 01/23/24 10:00 01/23/24 11:34 Temperature 98.0 F Pulse Rate 59 L 62 58 L Respiratory Rate 20 Blood Pressure 156/70 H Pulse Oximetry 96 Oxygen Delivery 01/23/24 13:06 01/23/24 13:17 01/23/24 12:00 Temperature Pulse Rate 62 Respiratory Rate 20 Blood Pressure Pulse Oximetry 96 Oxygen Delivery Room Air Room Air Room Air 01/23/24 12:00 01/23/24 14:00 01/23/24 15:45 Temperature 98.1 F Pulse Rate 62 62 64 Respiratory Rate 20 Blood Pressure 164/73 H Pulse Oximetry 94 Oxygen Delivery 01/23/24 16:00 01/23/24 16:00 Temperature Pulse Rate 64 62 Respiratory Rate 20 Blood Pressure Pulse Oximetry 94 Oxygen Delivery Room Air Intake/Output Intake/Output: Intake & Output 01/20/24 01/21/24 01/22/24 01/23/24 23:59 23:59 23:59 23:59 Intake Total 1999 1983 2950 1818.3 Output Total 840 1850 1150 Balance 1999 1144 1100 668.3 Meds/Results Medications: Active Medications Generic Name Dose Route Start Last Admin Trade Name Freq PRN Reason Stop Dose Admin Acetaminophen 650 mg 01/22/24 01:01 Acetaminophen 650 Mg Suppository RECTAL Q6H PRN Mild Pain (1-3) or Fever Aspirin 81 mg 01/21/24 08:00 01/23/24 08:30 Aspirin 81 Mg Chewable Tablet PO Not Given DAILY@0800 MARIANA Carbidopa/Levodopa 1 tablet 01/21/24 09:00 01/23/24 17:39 Carbidopa/Levodopa 25/100 Mg Tablet PO Not Given QID MARIANA Donepezil HCl 10 mg 01/21/24 18:00 01/22/24 18:33 Donepezil Hcl 10 Mg Tablet PO Not Given QPM MARIANA Heparin Sodium (Porcine) 5,000 units 01/21/24 22:00 01/23/24 15:26 Heparin Sodium 5,000 Units/Ml Vial SUB-Q 5,000 units Q8HR MARIANA Administration Lactated Ringer's 1,000 mls @ 100 mls/hr 01/20/24 17:20 01/23/24 15:31 Lr - Lactated Ringers Iv IV CONT 100 mls/hr .Q10H MARIANA Administration Metoprolol Tartrate 12.5 mg 01/21/24 09:00 01/23/24 08:30 Metoprolol Tartrate 12.5 Mg Tablet PO Not Given Q12HR MARIANA Perflutren Lipid Microsphere 0 ml 01/21/24 17:18 Perflutren Lipid Microspheres 1.5 Ml Vial Diluted To 10 Ml Total Volume IV PUSH 01/24/24 17:18 ONCE PRN adequate visualization Protocol Ropinirole HCl 1.5 mg 01/21/24 09:00 01/23/24 17:39 Ropinirole Hcl 0.5 Mg Tablet PO Not Given QID [facility] Tamsulosin HCl 0.4 mg 01/21/24 21:00 01/22/24 21:08 Tamsulosin Hcl 0.4 Mg Capsule PO Not Given QHS [facility] Radiology Results: ITS Impressions Head CT 01/20/24 15:59 Impression: No acute intracranial hemorrhage or suspicious mass effect. Head/Neck CTA 01/21/24 00:06 IMPRESSION: 1. Largely unremarkable CTA of the head and neck, as detailed above. 2. Percent stenosis per NASCET criteria within the internal carotid arteries is 0% Brain MRI 01/21/24 15:52 IMPRESSION: Scattered focal areas of cerebral and cerebellar diffusion restriction consistent with small, focal, primarily cortical infarcts, with a pattern suggestive of embolic disease. Chest X-Ray 01/22/24 09:11 Impression: Minimal bibasilar pulmonary edema versus possibly pneumonia. Stable cardiomegaly. Labs Labs: Laboratory Results - last 24 hr 01/20/24 01/23/24 22:30 04:38 WBC 10.3 H RBC 3.09 L Hgb 9.7 L Hct 29.3 L MCV 94.8 MCH 31.4 MCHC 33.1 RDW 14.4 Plt Count 153 MPV 10.5 H Immature Gran % (Auto) 0.5 Neut % (Auto) 77.1 H Lymph % (Auto) 11.5 L Glynn % (Auto) 10.1 H Eos % (Auto) 0.3 Baso % (Auto) 0.5 Lymph # (Auto) 1.18 Glynn # (Auto) 1.0 H Eos # (Auto) 0.0 Baso # (Auto) 0.1 Abs Immat Gran (auto) 0.05 H Absolute Neuts (auto) 7.9 H Absolute Nucleated RBC 0.000 Nucleated RBC % 0.0 Sodium 137 Potassium 3.6 Chloride 106 Carbon Dioxide 28 Anion Gap 3 L BUN 24 H Creatinine 1.00 Estim Creat Clear Calc 45 Estimated GFR > 60 Glucose 81 Calcium 8.5 Magnesium 1.8 Total Bilirubin 0.8 AST 133 H ALT 91 H Alkaline Phosphatase 62 Total Creatine Kinase 3173 H Total Protein 6.0 L Albumin 3.1 L Total T3 0.98 Quality VTE Prophylaxis VTE prophylaxis: mechanical ordered
--- NOTE | 2024-01-23 18:52 | P.PNNEUR_ITS ---
Progress Note: A&P Assessment and Plan (1) Hallucinations: Code(s): R44.3 - Hallucinations, unspecified Status: Acute (2) Parkinsons disease: Qualifiers: Dyskinesia presence: unspecified whether dyskinesia Fluctuating manifestations: unspecified whether manifestations fluctuate Qualified Code(s): G20.A1 - Parkinson's disease without dyskinesia, without mention of fluctuations Code(s): G20 - Parkinson's disease Status: Chronic (3) Dementia: Code(s): F03.90 - Unspecified dementia, unspecified severity, without behavioral disturbance, psychotic disturbance, mood disturbance, and anxiety Status: Acute (4) Chronic kidney disease, stage 3: Qualifiers: Chronic kidney disease stage 3 subtype: unspecified whether 3a or 3b Qualified Code(s): N18.30 - Chronic kidney disease, stage 3 unspecified Code(s): N18.30 - Chronic kidney disease, stage 3 unspecified Status: Chronic Time Spent With Patient Time: in view of the hallucinations I would suggest to consider replacing recuperate increase the dose of his Sinemet to 25/102 tablets 4 times a day to see if this helps. Of course he needs to be observed closely for side effect of the medications. Any other identifiable metabolic problem need to be attended to. I have also ordered vitamin B12 and folic acid level and MMA level which follow- up is progress. Subjective Date/time seen: 01/23/24 18:52 Interval history: Patient history of dementia and Parkinson's disease is still hallucinating. He is not able to give me a reliable history. Chart was reviewed. It was noted MRI of the brain shows white matter changes. A CPK is high at 1060. CT angiogram head and neck did not show any significant abnormalities. As also he has been found to have chronic kidney disease. Echocardiogram will be done. He has been seen by Dr. Kelley in the past in 2021 in Neurology office also. Review of Systems Review of Systems: ROS unobtainable: Yes unobtainable due to mental status Exam Narrative: Able to talk, appears somewhat drowsy but arousable. No aphasia or dysarthria. Cranial nerves grossly intact. Moving both upper and lower limbs. No dystonia or dyskinesias were seen. Objective Data Vital Signs Vital Signs: Vital Signs - 24 hr 01/22/24 19:49 01/22/24 21:08 01/22/24 20:00 Temperature 98.6 F Pulse Rate 67 64 67 Respiratory Rate 20 20 Blood Pressure 149/71 H Pulse Oximetry 97 97 Oxygen Delivery Room Air 01/22/24 20:00 01/22/24 22:00 01/22/24 23:10 Temperature 98.9 F Pulse Rate 63 65 71 Respiratory Rate 20 Blood Pressure 138/68 Pulse Oximetry 98 Oxygen Delivery 01/22/24 23:49 01/23/24 00:00 01/23/24 01:23 Temperature Pulse Rate 71 71 67 Respiratory Rate 20 Blood Pressure Pulse Oximetry 98 Oxygen Delivery Room Air 01/23/24 04:00 01/23/24 05:36 01/23/24 03:20 Temperature 98.3 F Pulse Rate 67 58 L 58 L Respiratory Rate 20 20 Blood Pressure 141/79 H Pulse Oximetry 98 98 Oxygen Delivery Room Air 01/23/24 06:00 01/23/24 07:18 01/23/24 08:00 Temperature 98.3 F Pulse Rate 61 57 L 59 L Respiratory Rate 20 20 Blood Pressure 119/58 L Pulse Oximetry 96 96 Oxygen Delivery Room Air 01/23/24 08:00 01/23/24 10:00 01/23/24 11:34 Temperature 98.0 F Pulse Rate 59 L 62 58 L Respiratory Rate 20 Blood Pressure 156/70 H Pulse Oximetry 96 Oxygen Delivery 01/23/24 13:06 01/23/24 13:17 01/23/24 12:00 Temperature Pulse Rate 62 Respiratory Rate 20 Blood Pressure Pulse Oximetry 96 Oxygen Delivery Room Air Room Air Room Air 01/23/24 12:00 01/23/24 14:00 01/23/24 15:45 Temperature 98.1 F Pulse Rate 62 62 64 Respiratory Rate 20 Blood Pressure 164/73 H Pulse Oximetry 94 Oxygen Delivery 01/23/24 16:00 01/23/24 16:00 01/23/24 18:00 Temperature Pulse Rate 64 62 62 Respiratory Rate 20 Blood Pressure Pulse Oximetry 94 Oxygen Delivery Room Air Intake/Output Intake/Output: Intake & Output 01/20/24 01/21/24 01/22/24 01/23/24 23:59 23:59 23:59 23:59 Intake Total 1999 1983 2950 1818.3 Output Total 840 1850 1150 Balance 1999 1144 1100 668.3 Meds/Results Medications: Active Medications Generic Name Dose Route Start Last Admin Trade Name Freq PRN Reason Stop Dose Admin Acetaminophen 650 mg 01/22/24 01:01 Acetaminophen 650 Mg Suppository RECTAL Q6H PRN Mild Pain (1-3) or Fever Aspirin 81 mg 01/21/24 08:00 01/23/24 08:30 Aspirin 81 Mg Chewable Tablet PO Not Given DAILY@0800 [facility] Aspirin 81 mg 01/24/24 09:00 Aspirin 81 Mg Enteric Tablet PO QAM [facility] Carbidopa/Levodopa 2 tablet 01/23/24 21:00 Carbidopa/Levodopa 25/100 Mg Tablet PO QID [facility] Donepezil HCl 10 mg 01/21/24 18:00 01/22/24 18:33 Donepezil Hcl 10 Mg Tablet PO Not Given QPM [facility] Heparin Sodium (Porcine) 5,000 units 01/21/24 22:00 01/23/24 15:26 Heparin Sodium 5,000 Units/Ml Vial SUB-Q 5,000 units Q8HR [facility] Administration Lactated Ringer's 1,000 mls @ 100 mls/hr 01/20/24 17:20 01/23/24 15:31 Lr - Lactated Ringers Iv IV CONT 100 mls/hr .Q10H [facility]NA Administration Metoprolol Tartrate 12.5 mg 01/21/24 09:00 01/23/24 08:30 Metoprolol Tartrate 12.5 Mg Tablet PO Not Given Q12HR [facility] Perflutren Lipid Microsphere 0 ml 01/21/24 17:18 Perflutren Lipid Microspheres 1.5 Ml Vial Diluted To 10 Ml Total Volume IV PUSH 01/24/24 17:18 ONCE PRN adequate visualization Protocol Tamsulosin HCl 0.4 mg 01/21/24 21:00 01/22/24 21:08 Tamsulosin Hcl 0.4 Mg Capsule PO Not Given QHS [facility] Radiology Results: ITS Impressions Head CT 01/20/24 15:59 Impression: No acute intracranial hemorrhage or suspicious mass effect. Head/Neck CTA 01/21/24 00:06 IMPRESSION: 1. Largely unremarkable CTA of the head and neck, as detailed above. 2. Percent stenosis per NASCET criteria within the internal carotid arteries is 0% Brain MRI 01/21/24 15:52 IMPRESSION: Scattered focal areas of cerebral and cerebellar diffusion restriction consistent with small, focal, primarily cortical infarcts, with a pattern suggestive of embolic disease. Chest X-Ray 01/22/24 09:11 Impression: Minimal bibasilar pulmonary edema versus possibly pneumonia. Stable cardiomegaly. Labs Labs: Laboratory Results - last 24 hr 01/20/24 01/23/24 22:30 04:38 WBC 10.3 H RBC 3.09 L Hgb 9.7 L Hct 29.3 L MCV 94.8 MCH 31.4 MCHC 33.1 RDW 14.4 Plt Count 153 MPV 10.5 H Immature Gran % (Auto) 0.5 Neut % (Auto) 77.1 H Lymph % (Auto) 11.5 L [place] % (Auto) 10.1 H Eos % (Auto) 0.3 Baso % (Auto) 0.5 Lymph # (Auto) 1.18 [place] # (Auto) 1.0 H Eos # (Auto) 0.0 Baso # (Auto) 0.1 Abs Immat Gran (auto) 0.05 H Absolute Neuts (auto) 7.9 H Absolute Nucleated RBC 0.000 Nucleated RBC % 0.0 Sodium 137 Potassium 3.6 Chloride 106 Carbon Dioxide 28 Anion Gap 3 L BUN 24 H Creatinine 1.00 Estim Creat Clear Calc 45 Estimated GFR > 60 Glucose 81 Calcium 8.5 Magnesium 1.8 Total Bilirubin 0.8 AST 133 H ALT 91 H Alkaline Phosphatase 62 Total Creatine Kinase 3173 H Total Protein 6.0 L Albumin 3.1 L Total T3 0.98
--- NOTE | 2024-01-23 20:19 | PC.NURSE ---
Pt alert and oriented and answers all questions appropriately. Attempted to insert NG tube. Pt refused. Educated pt about needing medicine for tonight and how he will not get important cardiac and parkinsons meds. Still declined.
[2024-01-24] VITALS (14 sets, daily range): BP systolic 142–175; BP diastolic 69–94; PULSE 67–98; RESP 20; TEMP 36.3–37.2; O2SAT 96–100
[2024-01-24] MEDS: LACTATED RINGERS 1,000 ML 100 ML IV CONT (02:20)
[2024-01-24 05:14] LABS: Basophils Percent Auto 0.4 % (0.2-1.2); Eosinophils Absolute Auto 0.1 K/mm3 (0-0.3); Eosinophils Percent Auto 0.8 % (0-4.4); Hematocrit 33.1 % (42.0-52.0); Hemoglobin 10.8 g/dL (14.0-18.0); Immature Granulocyte Absolute 0.06 K/mm3 (0.00-0.031); Immature Granulocyte Percent A 0.6 % (0-0.5); Lymphocytes Absolute Auto 1.04 K/mm3 (0.9-3.2); Lymphocytes Percent Auto 9.6 % (18.3-44.2); Mean Corpuscular HGB Conc 32.6 g/dl (32-36); Mean Corpuscular Hemoglobin 30.9 pg (26-34); Mean Corpuscular Volume 94.6 fl (80-100); Mean Platelet Volume 10.8 fl (7.4-10.4); Monocytes Absolute Auto 1.1 K/mm3 (0.1-0.6); Monocytes Percent Auto 10.3 % (2.6-8.5); Neutrophils Absolute Auto 8.5 K/mm3 (1.3-6.7); Neutrophils Percent Auto 78.3 % (45.5-73.1); Platelet Count Result 193 k/mm3 (150-375); Red Cell Distribution Width 13.8 % (11.5-14.5); White Blood Count 10.9 K/mm3 (4.5-10.0)
[2024-01-24 05:24] LABS: Cholesterol 147 mg/dL (0-200); HDL Direct 72 mg/dL; Triglycerides 102 mg/dL (<150)
[2024-01-24 05:25] LABS: Alanine Aminotransferase 99 U/L (6-50); Albumin Level 3.6 g/dL (3.5-5.1); Alkaline Phosphatase 82 U/L (38-126); Anion Gap 8 mmol/L (4-12); Aspartate Amino Transferase 131 U/L (17-59); Bilirubin,Total 1.2 mg/dL (0.2-1.3); Blood Urea Nitrogen 21 mg/dL (9-20); Calcium 8.9 mg/dL (8.4-10.2); Carbon Dioxide 26 mmol/L (22-30); Chloride 101 mmol/L (98-107); Estimated CRCL calculation 42 ml/min; Estimated Glomerular Filt Rate > 60; Glucose 87 mg/dL (65-110); Magnesium 1.8 mg/dL (1.6-2.3); Potassium 3.8 mmol/L (3.4-5.0); Sodium 135 mmol/L (137-145)
[2024-01-24 05:34] LABS: LDL Cholesterol Direct 43 mg/dL
[2024-01-24 05:43] LABS: Creatine Kinase 2416 U/L (55-170)
[2024-01-24 06:18] LABS: Vitamin D 25 Hydroxy 55.4 ng/mL
[2024-01-24 06:34] LABS: Folic Acid 11.1 ng/mL (2.76->20)
--- NOTE | 2024-01-24 07:42 | PC.NURSE ---
Patient's son contacted this morning to give an update about patient's night and specifically the fact that the patient is refusing still to allow us to place the NG tube. Verbalizes understanding at this time. Furthermore discussed the patients increased confusion throughout the night and that he has tried to get out of bed several times, including this morning since this RN arrived on shift. Family member verbalizes understanding at this time. Denies further questions at this time.
[2024-01-24 07:56] LABS: Hemoglobin A1C 5.6 % (<5.7)
--- NOTE | 2024-01-24 09:39 | PCSTNOTE ---
Please refer to the Bedside Swallow Evaluation in the EMR. Please note, silent aspiration cannot be ruled out at bedside.
[2024-01-24] MEDS: HEPARIN SODIUM 5,000 UNITS/ML VIAL 5000 UNITS SUB-Q ×2 (15:28→22:35)
--- NOTE | 2024-01-24 16:44 | WPDNEUROLOGY ---
Neurology EEG Report General Information Date of Study: 01/23/24 TEST Electroencephalogram DIAGNOSIS dementia and hallucinations CONDITION OF RECORDING bedside recording EEG NUMBER [id number] CLINICAL HISTORY history of dementia and hallucinations in chronic kidney disease EEG DESCRIPTION during wakefulness the background activity consists of predominantly alpha rhythm at 8 hertz with an amplitude of 15-30 microvolts which appears mildly formed. Anteriorly low amplitude mixed frequency activity was seen. There is no significant anteroposterior gradient. The background activity appears poorly formed. Muscle tension artifacts were seen in frontal region frequently. The patient did not progress to stage I or 2 sleep. Hyperventilation or photic stimulation were not performed IMPRESSION this is a normal EEG obtained during awake state.
--- NOTE | 2024-01-24 18:07 | P.PN_ITS ---
Progress Note: A&P Assessment and Plan (1) Altered mental status: Qualifiers: Altered mental status type: somnolence Qualified Code(s): R40.0 - Somnolence Code(s): R41.82 - Altered mental status, unspecified Status: Acute Assessment and Plan: - Head CT: No acute intracranial hemorrhage or suspicious mass effect. - patient found to be hypothermic: 90.7F, bear hugger applied lethargic at bedside CT head and CTA head and neck reviewed no acute changes or large vessel occlusion MRI brain showed scattered focal areas of cerebral and cerebellar stroke suggestive of embolic disease ECHO showed EF 60-65% and no regional wall motion abnormalities, neurology noted no need for CHRISTI EEG and ECHO pending neurology consulted patient NPO until evaluated by ST NG tube insertion for feeding in the meantime discussed with son and patient at bedside and they consented Son wants to hold hospice discussion for now and re-[place] in a couple of date Lipid profile, A1c pending Continue Aspirin. Statin on hold cue to Rhabdomyolysis PT/OT/ST Neurology following (2) Generalized weakness: Code(s): R53.1 - Weakness Status: Acute Assessment and Plan: - UA not consitent with UTI - CXR showing no PNA - viral PCR negative - CTA head and neck unremarkable improvign (3) Rhabdomyolysis: Qualifiers: Encounter type: initial encounter Rhabdomyolysis type: traumatic Qualified Code(s): T79.6XXA - Traumatic ischemia of muscle, initial encounter Code(s): M62.82 - Rhabdomyolysis Status: Acute Assessment and Plan: - CK 1060 - historically secondary to falls, is on statin. plan to d/c statin. - Continue IVf and monitor CK (4) Frequent falls: Code(s): R29.6 - Repeated falls Status: Chronic Assessment and Plan: - fall precautions - PT/OT evaluation for d/c planning - care coordination consulted for d/c planning son interested in placment options (5) Parkinsons disease: Qualifiers: Dyskinesia presence: unspecified whether dyskinesia Fluctuating manifestations: unspecified whether manifestations fluctuate Qualified Code(s): G20.A1 - Parkinson's disease without dyskinesia, without mention of fluctuations Code(s): G20 - Parkinson's disease Status: Chronic Assessment and Plan: - continue home medications: Carbidopa-levodopa 2 tablet q.i.d. discussed adjustment with neurology (6) Chronic kidney disease, stage 3: Qualifiers: Chronic kidney disease stage 3 subtype: unspecified whether 3a or 3b Qualified Code(s): N18.30 - Chronic kidney disease, stage 3 unspecified Code(s): N18.30 - Chronic kidney disease, stage 3 unspecified Status: Chronic Assessment and Plan: - creatinine 1.1 and GFR >60, previously 1.2 and GFR 58 on 12/09/2023 - trend renal function - trend electrolytes, correct as needed (7) Hypertension: Qualifiers: Hypertension type: primary hypertension Qualified Code(s): I10 - Es sential (primary) hypertension Code(s): I10 - Essential (primary) hypertension Status: Chronic Assessment and Plan: - chronic, currently 109/65 - continue home medications: Metoprolol 12.5 mg b.i.d. - monitor Plan Patient is still hallucinating and unable to provide any detail history or ROS. patient was seen by speech but was not able to do MBS, discuss during rounds son was waiting for MBS results before deciding about the hospice. I called Jc patient's son and POA and discuss with him, he is agreeable to hospice and discharge the patient to [facility], communicated with resident care spec and place a hospice consult. Subjective Date/time seen: 01/24/24 18:07 Interval history: Patient is still hallucinating and unable to provide any detail history or ROS. patient was seen by speech but was not able to do MBS, discuss during rounds son was waiting for MBS results before deciding about the hospice. I called Jc patient's son and POA and discuss with him, he is agreeable to hospice and discharge the patient to [facility], communicated with resident care spec and place a hospice consult. Review of Systems Review of Systems: ROS unobtainable: Yes unobtainable due to mental status (Limited) Exam Narrative: Patient is comfortable, NAD HEENT: eyes are clear and none icteric LUNGS:CTA HEART: RR S1S2 ABD: BS+, Soft and nontender Lower extremities: no edema SKIN: nonjaundiced Neuro: grossly intact. Objective Data Vital Signs Vital Signs: Vital Signs - 24 hr 01/23/24 20:18 01/23/24 20:00 01/23/24 20:00 Temperature 37.0 C Pulse Rate 68 68 68 Respiratory Rate 20 20 Blood Pressure 149/75 H Pulse Oximetry 96 96 Oxygen Delivery Room Air Fraction of Inspired Oxygen 01/23/24 23:44 01/23/24 22:00 01/24/24 00:00 Temperature 36.8 C Pulse Rate 67 62 67 Respiratory Rate 20 20 Blood Pressure 156/90 H Pulse Oximetry 96 96 Oxygen Delivery Room Air Fraction of Inspired Oxygen 01/24/24 00:00 01/24/24 03:25 01/24/24 04:00 Temperature 37.2 C Pulse Rate 67 84 84 Respiratory Rate 20 20 Blood Pressure 175/79 H Pulse Oximetry 98 98 Oxygen Delivery Room Air Fraction of Inspired Oxygen 01/24/24 02:00 01/24/24 04:00 01/24/24 06:00 Temperature Pulse Rate 84 98 84 Respiratory Rate Blood Pressure Pulse Oximetry Oxygen Delivery Fraction of Inspired Oxygen 01/24/24 07:21 01/24/24 09:05 01/24/24 08:00 Temperature 36.3 C L Pulse Rate 72 72 Respiratory Rate 20 20 Blood Pressure 155/69 H Pulse Oximetry 98 97 97 Oxygen Delivery Room Air Room Air Fraction of Inspired Oxygen 21 21 01/24/24 08:00 01/24/24 11:13 01/24/24 10:00 Temperature 36.4 C L Pulse Rate 86 78 72 Respiratory Rate 20 Blood Pressure 166/88 H Pulse Oximetry 98 Oxygen Delivery Fraction of Inspired Oxygen 01/24/24 15:08 01/24/24 12:00 Temperature 36.8 C Pulse Rate 82 82 Respiratory Rate 20 Blood Pressure 173/88 H Pulse Oximetry 100 Oxygen Delivery Fraction of Inspired Oxygen Intake/Output Intake/Output: Intake & Output 01/21/24 01/22/24 01/23/24 01/24/24 23:59 23:59 23:59 23:59 Intake Total 1984 2950 1818.3 1000 Output Total 840 1850 1150 4500 Balance 1144 1100 668.3 3500 Meds/Results Medications: Active Medications Generic Name Dose Route Start Last Admin Trade Name Freq PRN Reason Stop Dose Admin Acetaminophen 650 mg 01/22/24 01:01 Acetaminophen 650 Mg Suppository RECTAL Q6H PRN Mild Pain (1-3) or Fever Aspirin 81 mg 01/21/24 08:00 01/24/24 13:29 Aspirin 81 Mg Chewable Tablet PO Not Given DAILY@0800 [facility] Aspirin 81 mg 01/24/24 09:00 01/24/24 13:29 Aspirin 81 Mg Enteric Tablet PO Not Given QAM [facility] Carbidopa/Levodopa 2 tablet 01/23/24 21:00 01/24/24 17:14 Carbidopa/Levodopa 25/100 Mg Tablet PO Not Given QID [facility] Donepezil HCl 10 mg 01/21/24 18:00 01/24/24 17:14 Donepezil Hcl 10 Mg Tablet PO Not Given QPM [facility] Heparin Sodium (Porcine) 5,000 units 01/21/24 22:00 01/24/24 15:28 Heparin Sodium 5,000 Units/Ml Vial SUB-Q 5,000 units Q8HR [facility] Administration Lactated Ringer's 1,000 mls @ 100 mls/hr 01/20/24 17:20 01/24/24 02:20 Lr - Lactated Ringers Iv IV CONT 100 mls/hr .Q10H [facility] Administration Metoprolol Tartrate 12.5 mg 01/21/24 09:00 01/24/24 13:29 Metoprolol Tartrate 12.5 Mg Tablet PO Not Given Q12HR [facility] Tamsulosin HCl 0.4 mg 01/21/24 21:00 01/23/24 23:58 Tamsulosin Hcl 0.4 Mg Capsule PO Not Given QHS [facility] Radiology Results: ITS Impressions Head CT 01/20/24 15:59 Impression: No acute intracranial hemorrhage or suspicious mass effect. Head/Neck CTA 01/21/24 00:06 IMPRESSION: 1. Largely unremarkable CTA of the head and neck, as detailed above. 2. Percent stenosis per NASCET criteria within the internal carotid arteries is 0% Brain MRI 01/21/24 15:52 IMPRESSION: Scattered focal areas of cerebral and cerebellar diffusion restriction consistent with small, focal, primarily cortical infarcts, with a pattern suggestive of embolic disease. Chest X-Ray 01/22/24 09:11 Impression: Minimal bibasilar pulmonary edema versus possibly pneumonia. Stable cardiomegaly. Labs Labs: Laboratory Results - last 24 hr 01/24/24 04:41 WBC 10.9 H RBC 3.50 L Hgb 10.8 L Hct 33.1 L MCV 94.6 MCH 30.9 MCHC 32.6 RDW 13.8 Plt Count 193 MPV 10.8 H Immature Gran % (Auto) 0.6 H Neut % (Auto) 78.3 H Lymph % (Auto) 9.6 L [place] % (Auto) 10.3 H Eos % (Auto) 0.8 Baso % (Auto) 0.4 Lymph # (Auto) 1.04 [place] # (Auto) 1.1 H Eos # (Auto) 0.1 Baso # (Auto) 0.0 Abs Immat Gran (auto) 0.06 H Absolute Neuts (auto) 8.5 H Absolute Nucleated RBC 0.000 Nucleated RBC % 0.0 Sodium 135 L Potassium 3.8 Chloride 101 Carbon Dioxide 26 Anion Gap 8 BUN 21 H Creatinine 1.10 Estim Creat Clear Calc 42 Estimated GFR > 60 Glucose 87 Hemoglobin A1c 5.6 Calcium 8.9 Magnesium 1.8 Total Bilirubin 1.2 AST 131 H ALT 99 H Alkaline Phosphatase 82 Total Creatine Kinase 2416 H Total Protein 7.0 Albumin 3.6 Triglycerides 102 Cholesterol 147 LDL Cholesterol Direct 43 HDL Direct 72 Vitamin B12 572.0 Vitamin D 25-Hydroxy 55.4 Folate 11.1 Quality VTE Prophylaxis VTE prophylaxis: mechanical ordered
[2024-01-25] MEDS: HEPARIN SODIUM 5,000 UNITS/ML VIAL 5000 UNITS SUB-Q (05:28)
[2024-01-25 07:18] VITALS: BP 120/59; PULSE 64; RESP 20; TEMP 36.6; O2SAT 98
[2024-01-25 08:00] VITALS: PULSE 64; RESP 20; O2SAT 98
[2024-01-25 11:35] LABS: Glucose Point of Care 85 mg/dl (65-105)
--- NOTE | 2024-01-25 13:22 | PM.DS ---
DS: Admitting Diagnosis Discharge Date 01/25/24 Admitting Diagnosis Weakness DS: Discharge Diagnosis Discharge Diagnosis (1) Altered mental status: Qualifiers: Altered mental status type: somnolence Qualified Code(s): R40.0 - Somnolence Code(s): R41.82 - Altered mental status, unspecified Status: Acute (2) Generalized weakness: Code(s): R53.1 - Weakness Status: Acute (3) Rhabdomyolysis: Qualifiers: Encounter type: initial encounter Rhabdomyolysis type: traumatic Qualified Code(s): T79.6XXA - Traumatic ischemia of muscle, initial encounter Code(s): M62.82 - Rhabdomyolysis Status: Acute (4) Frequent falls: Code(s): R29.6 - Repeated falls Status: Chronic (5) Parkinsons disease: Qualifiers: Dyskinesia presence: unspecified whether dyskinesia Fluctuating manifestations: unspecified whether manifestations fluctuate Qualified Code(s): G20.A1 - Parkinson's disease without dyskinesia, without mention of fluctuations Code(s): G20 - Parkinson's disease Status: Chronic (6) Chronic kidney disease, stage 3: Qualifiers: Chronic kidney disease stage 3 subtype: unspecified whether 3a or 3b Qualified Code(s): N18.30 - Chronic kidney disease, stage 3 unspecified Code(s): N18.30 - Chronic kidney disease, stage 3 unspecified Status: Chronic (7) Hypertension: Qualifiers: Hypertension type: primary hypertension Qualified Code(s): I10 - Essential (primary) hypertension Code(s): I10 - Essential (primary) hypertension Status: Chronic DS: Summary Hospital Course Reason for hospitalization: 84yo male with Parkinson's disease, CKD, HTN, HLD, and prostate cancer here with generalized weakness and hallucinations. Please see H&P for details. Hospital Course: Patient was hemodynamically stable on presentation. White count is normal. Hemoglobin 11.2 which is baseline. Creatinine 1.1. Creatinine kinase was 1060. UA was not consistent with UTI. COVID, RSV and influenza PCR were negative. CXR showed mild atelectasis at the right lung base. Head CT showed no acute intracranial hemorrhage or suspicious mass effect. CMP showed BUN of 40, creatinine 1.1 and AST 92 otherwise normal. Urine drug screen was negative. Patient underwent head and neck CTA which was largely unremarkable. Brain MRI showed scattered focal areas of cerebral and cerebellar diffusion restrictions consistent with small, focal, primarily cortical infarcts with a pattern suggesting embolic disease. Echocardiogram showed mild concentric LVH with normal systolic function and grade 1 diastolic dysfunction. Agitated saline showed no intracardiac shunt. No obvious thrombus noted. Speech therapy evaluated the patient and felt the patient was significant risk for aspiration. EEG showed normal EEG during the awake state. Neurology was consulted and appreciate their input. The hospitalist service provider talked with the family and POA about the hospital course and options were discussed. They were agreeable to proceed with hospice care with plans to discharge the patient to [facility]. Care coordination was made aware and has made arrangements. Patient was able to be discharged to [facility] on hospice care on 01/25/2024. Status at Discharge Cognitive/behavioral status at discharge: stable Time Spent with Patient Time attestation: Total time spent providing and/or coordinating discharge services: 34 minutes Time spent: Greater than 30 minutes Exam Narrative: AF 97.8 120/59 64 20 98% ra Gen - NARD Chest - clear anteriorly, nml RR CV - RRR S1/S2 Abd - Soft, NT/ND, Positive BS Ext - No pedal edema Neuro - Alert but confused Psych - Nml mood and affect Skin - Warm and dry DS: Data Data Completed and Pending Labs on day of discharge: Labs from last 24 hours 01/25/24 11:30 POC Capillary Glucose 85 Preliminary micro results at discharge 01/22/24 02:54 Blood Culture - Preliminary Blood 01/22/24 02:52 Blood Culture - Preliminary Blood Discharge Plan Discharge Attending physician on discharge: Matthew Tidwell Consulting providers: Gonzalo Russell Discharging Clinician: Matthew Tidwell Anticipated Discharge Date/Time: 01/25/24 13:33 Patient Disposition: Hospice - Medical Facility Activity: as tolerated Diet: as tolerated Discharge Instructions: Hospice consult Aspiration precautions. Monitor for urine retention Follow-up with the provider at the facility Thank you for using [facility] for your health care needs. Stand Alone Forms: General Discharge Information Follow-up/Referrals: Mitali,Bird Cosby MD [Primary Care Provider] - Other Discharge Medications: Continued donepezil [Aricept] 10 mg tablet 10 mg PO DAILY Patient Comments: Has not been filled since March, Rx Instructions: evening ropinirole 0.5 mg tablet 1.5 mg PO QID metoprolol tartrate 25 mg tablet 12.5 mg PO BID tamsulosin 0.4 mg capsule 0.4 mg PO QHS Qty: 30 0RF Rx Instructions: LAST REFILL UNTIL SEEN carbidopa-levodopa 25-100 mg tablet 1 tablet PO QID Qty: 120 6RF Rx Instructions: four times a day Discontinued aspirin 81 mg Tablet,Chewable 81 mg PO DAILY rosuvastatin 10 mg tablet 10 mg PO HS Rx Instructions: Evening Date of admission: 01/23/24 10:33 Primary Care Provider: MitaliBird Admitting Provider: Harjit Michele Attending physician on admission: Harjit Michele Condition: Guarded Prognosis Hospitalist MIPS Heart Failure (Exclusion) Patient has history of Heart Transplant or Left Ventricular Assistive Device?: No IF YES, STOP HERE Heart Failure (Qualifier) Patient has current or prior documentation of LVEF less than or equal to 40%, or mod/servere depressed LVSF?: No IF NO, STOP HERE
--- NOTE | 2024-01-25 14:58 | PC.NURSE ---
Report called to nurse taking over care at [facility]. Denies questions at this time. All orders were discussed and faxed over to the facility.
[2024-01-25 17:57] VITALS: BP 118/61; PULSE 64; RESP 20; TEMP 36.4; O2SAT 98
[2024-01-27 16:23] LABS: Methylmalonic Acid 112 nmol/L (85-423)
== END 2024-01-25 18:12 | disposition hospice, inpatient (51) | DRG 558 ==
LOC: ANHED 14:54 → ANH2MED 18:21 → ANHIMU 22:38
PROVIDERS: Internal Medicine; Psychiatry & Neurology Neurology; Student in an Organized Health Care Education/Training Program; Admitting Provider Internal Medicine; Emergency Provider Emergency Medicine; PCP Internal Medicine; Visit Provider Internal Medicine
DX: M62.82 Rhabdomyolysis (principal); G20.A1 Parkinson's disease without dyskinesia, without mention of fluctuations; I12.9 Hypertensive chronic kidney disease with stage 1 through stage 4 chronic kidney disease, or unspecified chronic kidney disease; N18.30 Chronic kidney disease, stage 3 unspecified; Z66 Do not resuscitate; D63.1 Anemia in chronic kidney disease; E78.5 Hyperlipidemia, unspecified; F03.90 Unspecified dementia, unspecified severity, without behavioral disturbance, psychotic disturbance, mood disturbance, and anxiety; K21.9 Gastro-esophageal reflux disease without esophagitis; R29.6 Repeated falls; N40.0 Benign prostatic hyperplasia without lower urinary tract symptoms; R68.0 Hypothermia, not associated with low environmental temperature; R44.1 Visual hallucinations; Z79.82 Long term (current) use of aspirin; Z20.822 Contact with and (suspected) exposure to COVID-19; Z85.46 Personal history of malignant neoplasm of prostate; Z87.891 Personal history of nicotine dependence; Z86.718 Personal history of other venous thrombosis and embolism; Z79.01 Long term (current) use of anticoagulants
CPT/HCPCS: 36415; 70450; 70496; 70498; 70551; 71045; 71046; 80048; 80053; 80061; 80307; 81001; 82306; 82550; 82607; 82746; 82948; 83036; 83735; 83921; 84439; 84443; 84480; 85025; 85027; 85055; 85610; 85730; 87040; 87637; 92610; 93005; 93306; 95816; 96360; 96361; 96375; 97162; 97165; 99285; A9270; G0378; J1644; J7030; J7120; Q9967